=== PATIENT | male | born 1940 | race Caucasian/White ===

== ENCOUNTER 2018-06-14 22:13 | Inpatient (IN) | payer MEDICARE, OTHER | END 2018-06-20 11:35 | disposition other institution, planned readmission (95) | LOC: ER FS 22:13 → 4TH 06-15 00:51 | DX: J18.9 Pneumonia, unspecified organism (principal); J44.0 Chronic obstructive pulmonary disease with (acute) lower respiratory infection; R11.2 Nausea with vomiting, unspecified; G62.9 Polyneuropathy, unspecified; E87.6 Hypokalemia; R74.8 Abnormal levels of other serum enzymes; G89.29 Other chronic pain; N42.9 Disorder of prostate, unspecified; M19.91 Primary osteoarthritis, unspecified site; H91.91 Unspecified hearing loss, right ear; Z85.118 Personal history of other malignant neoplasm of bronchus and lung; Z87.891 Personal history of nicotine dependence; Z92.21 Personal history of antineoplastic chemotherapy; Z97.4 Presence of external hearing-aid; Z87.820 Personal history of traumatic brain injury ==

== ENCOUNTER 2018-09-06 22:33 | Inpatient (IN) | payer MEDICARE, OTHER ==
[~2018-09-06] VITALS: Ht 172.7 cm; Wt 81.6 kg
[~2018-09-06 22:33] MED LIST: AMLO10TA7 PO; AMLODIPINE BESYLATE 10 MG TAB; AMOX-358 PO; ASCO500T7 PO; CALC500T47 PO; DOCU100C37 PO; FENT1PAT11 TD; FENTANYL 100 MCG/HR PATCH; FERR-65 PO; FERR325T18 PO; GABA-488 PO; GABAPENTIN 300 MG CAPSULE; GBPN600T PO; HYDR28.341 RC; IBUP-1779 PO; IBUP-2186 PO; IPRA3AMP31 IH; LORA10TA7 PO; MULT-974 PO; OMEP20TA7 PO; OMEPRAZOLE DR 20 MG CAPSULE; ONDA4TAB11 PO; ONDANSETRON ODT 4 MG TABLET; OXYC-529 PO; OXYCODONE HCL 5 MG TABLET; PARO20TA5 PO; POLYMYXIN B; POTA10TA36 PO; POTASSIUM CL ER 10 MEQ TABLET; PREDNISOLONE AC 1% EYE DROP; PREDNISONE 20 MG TABLET; RT-ALBUINH INH; SENN-141 PO; TAMS0.4C2 PO; TRIMETHOPRIM; UMEC1BLS IH; [UNRECOGNIZED DRUG - CODE] PO
--- OUTSIDE RECORDS SUMMARY | 2018-09-06 22:40 | XMS REPORT | Continuity of Care Document ---
Author Organization Unknown Address Unknown Allergies Active Description Code Type Severity Reaction Onset Reported/Identified Relationship to Patient Clinical Status Yes No Known Medication Allergies Drug N/A N/A Yes baclofen [id number] Drug Allergy Unknown N/A 06/14/2018 Yes metoclopramide [id number] Drug Allergy Unknown N/A 06/14/2018 Medications There is no data. 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 06/20/2018 KRISTINA NUNEZ MD Ot G62.9 POLYNEUROPATHY, UNSPECIFIED 06/20/2018 KRISTINA NUNEZ MD Ot G89.29 OTHER CHRONIC PAIN 06/20/2018 KRISTINA NUNEZ MD Ot H91.91 UNSPECIFIED HEARING LOSS, RIGHT EAR 06/20/2018 KRISTINA NUNEZ MD Ot J18.1 LOBAR PNEUMONIA, UNSPECIFIED ORGANISM 06/20/2018 KRISTINA NUNEZ MD Ot J18.9 PNEUMONIA, UNSPECIFIED ORGANISM 06/20/2018 KRISTINA NUNEZ MD Ot J44.0 CHRONIC OBSTRUCTIVE PULMON DISEASE W ACU 06/20/2018 KRISTINA NUNEZ MD Ot J96.21 ACUTE AND CHRONIC RESPIRATORY FAILURE [place] 06/20/2018 KRISTINA NUNEZ MD Ot M19.91 PRIMARY OSTEOARTHRITIS, UNSPECIFIED SITE 06/20/2018 KRISTINA NUNEZ MD Ot N42.9 DISORDER OF PROSTATE, UNSPECIFIED 06/20/2018 KRISTINA NUNEZ MD Ot R11.2 NAUSEA WITH VOMITING, UNSPECIFIED 06/20/2018 KRISTINA NUNEZ MD Ot R74.8 ABNORMAL LEVELS OF OTHER SERUM ENZYMES 06/20/2018 KRISTINA NUNEZ MD Ot S06.9X9S UNSP INTRACRANIAL INJURY W LOC OF UNSP D 06/20/2018 KRISTINA NUNEZ MD Ot Z85.118 PERSONAL HISTORY OF MALIGNANT NEOPLASM O 06/20/2018 KRISTINA NUNEZ MD Ot Z87.820 PERSONAL HISTORY OF TRAUMATIC BRAIN INJU 06/20/2018 KRISTINA NUNEZ MD, Ot Z87.891 PERSONAL HISTORY OF NICOTINE DEPENDENCE 06/20/2018 KRISTINA NUNEZ MD Ot Z92.21 PERSONAL HISTORY OF ANTINEOPLASTIC CHEMO 06/20/2018 KRISTINA NUNEZ MD Ot 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 Procedures Code Description Performed By Performed On [id number] DRAINAGE OF LEFT LOWER LUNG LOBE, ENDO, 06/19/2018 [id number] EXTRACTION OF LEFT LOWER LUNG LOBE, ENDO 06/19/2018 Results Test Result Range Blood lactic acid measurement (moles/volume) - 06/14/18 20:35 Blood lactic acid measurement (moles/volume) 1.00 mmol/L 0.50- 2.00 Bacterial blood culture - 06/14/18 20:35 Bacterial blood culture NG [facility] Complete blood count (CBC) with automated white blood cell (WBC) differential - 06/14/18 22:20 Blood leukocytes automated count (number/volume) 23.8 10*3/uL 4.3-11.0 Blood erythrocytes automated count (number/volume) 4.25 10*6/uL 4.35-5.85 Venous blood hemoglobin measurement (mass/volume) 12.1 g/dL 13.3-17.7 Blood hematocrit (volume fraction) 38 % 40-54 Automated erythrocyte mean corpuscular volume 89 [foz_us] 80-99 Automated erythrocyte mean corpuscular hemoglobin (mass per erythrocyte) 28 pg 25-34 Automated erythrocyte mean corpuscular hemoglobin concentration measurement (mass/volume) 32 g/dL 32-36 Automated erythrocyte distribution width ratio 14.6 % 10.0- 14.5 Automated blood platelet count (count/volume) 256 10*3/uL 130-400 Automated blood platelet mean volume measurement 10.5 [foz_us] 7.4-10.4 Automated blood neutrophils/100 leukocytes 91 % 42-75 Automated blood lymphocytes/100 leukocytes 5 % 12-44 Blood monocytes/100 leukocytes 4 % 0-12 Automated blood eosinophils/100 leukocytes 0 % 0-10 Automated blood basophils/100 leukocytes 0 % 0-10 Blood neutrophils automated count (number/volume) 21.6 10*3 1.8-7.8 Blood lymphocytes automated count (number/volume) 1.2 10*3 1.0-4.0 Blood monocytes automated count (number/volume) 0.8 10*3 0.0- 1.0 Automated eosinophil count 0.0 10*3/uL 0.0-0.3 Automated blood basophil count (count/volume) 0.0 10*3/uL 0.0-0.1 Blood manual differential performed detection - 06/14/18 22:20 Blood monocytes/100 leukocytes 4 % NRG Manual blood segmented neutrophils/100 leukocytes 52 % NRG Blood band neutrophils/100 leukocytes 40 % NRG Manual blood lymphocytes/100 leukocytes 4 % NRG Comprehensive metabolic panel - 06/14/18 22:20 Serum or plasma sodium measurement (moles/volume) 142 mmol/L 135-145 Serum or plasma potassium measurement (moles/volume) 3.3 mmol/L 3.6-5.0 Serum or plasma chloride measurement (moles/volume) 102 mmol/L 98-107 Carbon dioxide 27 mmol/L 21-32 Serum or plasma anion gap determination (moles/volume) 13 mmol/L 5-14 Serum or plasma urea nitrogen measurement (mass/volume) 12 mg/dL 7-18 Serum or plasma creatinine measurement (mass/volume) 0.77 mg/dL 0.60-1.30 Serum or plasma urea nitrogen/creatinine mass ratio 16 NRG Serum or plasma creatinine measurement with calculation of estimated glomerular filtration rate > NRG Serum or plasma glucose measurement (mass/volume) 128 mg/dL 70-105 Serum or plasma calcium measurement (mass/volume) 8.4 mg/dL 8.5-10.1 Serum or plasma total bilirubin measurement (mass/volume) 0.6 mg/dL 0.1-1.0 Serum or plasma alkaline phosphatase measurement (enzymatic activity/volume) 146 U/L 40-136 Serum or plasma aspartate aminotransferase measurement (enzymatic activity/volume) 68 U/L 5-34 Serum or plasma alanine aminotransferase measurement (enzymatic activity/volume) 82 U/L 0-55 Serum or plasma protein measurement (mass/volume) 7.0 g/dL 6.4-8.2 Serum or plasma albumin measurement (mass/volume) 3.8 g/dL 3.2-4.5 CALCIUM CORRECTED 8.6 mg/dL 8.5-10.1 Lipase - 06/14/18 22:20 Lipase 7 U/L 8-78 Magnesium - 06/14/18 22:20 Magnesium 1.9 mg/dL 1.8-2.4 Influenza virus A and B antigen detection - 06/14/18 22:40 FLU RESULT NEGATIVE FOR INFLUENZA A AND B ANTIGENS BY IA NRG Complete urinalysis with reflex to culture - 06/14/18 23:25 Urine color determination YELLOW NRG Urine clarity determination CLEAR NRG Urine pH measurement by test strip 7.0 5-9 Specific gravity of urine by test strip 1.015 1.016-1.022 Urine protein assay by test strip, semi-quantitative NEGATIVE NEGATIVE Urine glucose detection by automated test strip NEGATIVE NEGATIVE Erythrocytes detection in urine sediment by light microscopy NEGATIVE NEGATIVE Urine ketones detection by automated test strip 1+ NEGATIVE Urine nitrite detection by test strip NEGATIVE NEGATIVE Urine total bilirubin detection by test strip NEGATIVE NEGATIVE Urine urobilinogen measurement by automated test strip (mass/volume) 0.2 mg/dL NORMAL Urine leukocyte esterase detection by dipstick NEGATIVE NEGATIVE Automated urine sediment erythrocyte count by microscopy (number/high power field) [HPF] NRG Automated urine sediment leukocyte count by microscopy (number/high power field) [HPF] NRG Bacteria detection in urine sediment by light microscopy FEW NRG Squamous epithelial cells detection in urine sediment by light microscopy 2-5 NRG Crystals detection in urine sediment by light microscopy NONE NRG Casts detection in urine sediment by light microscopy NONE NRG Mucus detection in urine sediment by light microscopy NEGATIVE NRG Complete urinalysis with reflex to culture YES NRG Bacterial urine culture - 06/14/18 23:25 Bacterial urine culture SEE COMMEN NRG COLONY COUNT . NRG Bacterial blood culture - 06/15/18 00:05 Bacterial blood culture NG NR Complete blood count (CBC) with automated white blood cell (WBC) differential - 06/15/18 06:15 Blood leukocytes automated count (number/volume) 17.0 10*3/uL 4.3-11.0 Blood erythrocytes automated count (number/volume) 3.76 10*6/uL 4.35-5.85 Venous blood hemoglobin measurement (mass/volume) 10.9 g/dL 13.3-17.7 Blood hematocrit (volume fraction) 34 % 40-54 Automated erythrocyte mean corpuscular volume 89 [foz_us] 80-99 Automated erythrocyte mean corpuscular hemoglobin (mass per erythrocyte) 29 pg 25-34 Automated erythrocyte mean corpuscular hemoglobin concentration measurement (mass/volume) 32 g/dL 32-36 Automated erythrocyte distribution width ratio 15.1 % 10.0- 14.5 Automated blood platelet count (count/volume) 221 10*3/uL 130-400 Automated blood platelet mean volume measurement 10.2 [foz_us] 7.4-10.4 Automated blood neutrophils/100 leukocytes 86 % 42-75 Automated blood lymphocytes/100 leukocytes 9 % 12-44 Blood monocytes/100 leukocytes 5 % 0-12 Automated blood eosinophils/100 leukocytes 0 % 0-10 Automated blood basophils/100 leukocytes 0 % 0-10 Blood neutrophils automated count (number/volume) 14.6 10*3 1.8-7.8 Blood lymphocytes automated count (number/volume) 1.5 10*3 1.0-4.0 Blood monocytes automated count (number/volume) 0.8 10*3 0.0- 1.0 Automated eosinophil count 0.1 10*3/uL 0.0-0.3 Automated blood basophil count (count/volume) 0.0 10*3/uL 0.0-0.1 Whole blood basic metabolic panel - 06/15/18 06:15 Serum or plasma sodium measurement (moles/volume) 143 mmol/L 135-145 Serum or plasma potassium measurement (moles/volume) 3.0 mmol/L 3.6-5.0 Serum or plasma chloride measurement (moles/volume) 107 mmol/L 98-107 Carbon dioxide 27 mmol/L 21-32 Serum or plasma anion gap determination (moles/volume) 9 mmol/L 5-14 Serum or plasma urea nitrogen measurement (mass/volume) 14 mg/dL 7-18 Serum or plasma creatinine measurement (mass/volume) 0.69 mg/dL 0.60-1.30 Serum or plasma urea nitrogen/creatinine mass ratio 20 NRG Serum or plasma creatinine measurement with calculation of estimated glomerular filtration rate > NRG Serum or plasma glucose measurement (mass/volume) 102 mg/dL 70-105 Serum or plasma calcium measurement (mass/volume) 8.9 mg/dL 8.5-10.1 Complete blood count (CBC) with automated white blood cell (WBC) differential - 06/16/18 06:35 Blood leukocytes automated count (number/volume) 9.8 10*3/uL 4.3-11.0 Blood erythrocytes automated count (number/volume) 3.51 10*6/uL 4.35-5.85 Venous blood hemoglobin measurement (mass/volume) 10.0 g/dL 13.3-17.7 Blood hematocrit (volume fraction) 32 % 40-54 Automated erythrocyte mean corpuscular volume 90 [foz_us] 80-99 Automated erythrocyte mean corpuscular hemoglobin (mass per erythrocyte) 29 pg 25-34 Automated erythrocyte mean corpuscular hemoglobin concentration measurement (mass/volume) 32 g/dL 32-36 Automated erythrocyte distribution width ratio 14.9 % 10.0- 14.5 Automated blood platelet count (count/volume) 192 10*3/uL 130-400 Automated blood platelet mean volume measurement 10.2 [foz_us] 7.4-10.4 Automated blood neutrophils/100 leukocytes 81 % 42-75 Automated blood lymphocytes/100 leukocytes 11 % 12-44 Blood monocytes/100 leukocytes 6 % 0-12 Automated blood eosinophils/100 leukocytes 2 % 0-10 Automated blood basophils/100 leukocytes 0 % 0-10 Blood neutrophils automated count (number/volume) 7.9 10*3 1.8-7.8 Blood lymphocytes automated count (number/volume) 1.1 10*3 1.0-4.0 Blood monocytes automated count (number/volume) 0.6 10*3 0.0- 1.0 Automated eosinophil count 0.2 10*3/uL 0.0-0.3 Automated blood basophil count (count/volume) 0.0 10*3/uL 0.0-0.1 Comprehensive metabolic panel - 06/16/18 06:35 Serum or plasma sodium measurement (moles/volume) 139 mmol/L 135-145 Serum or plasma potassium measurement (moles/volume) 3.2 mmol/L 3.6-5.0 Serum or plasma chloride measurement (moles/volume) 105 mmol/L 98-107 Carbon dioxide 27 mmol/L 21-32 Serum or plasma anion gap determination (moles/volume) 7 mmol/L 5-14 Serum or plasma urea nitrogen measurement (mass/volume) 11 mg/dL 7-18 Serum or plasma creatinine measurement (mass/volume) 0.70 mg/dL 0.60-1.30 Serum or plasma urea nitrogen/creatinine mass ratio 16 NRG Serum or plasma creatinine measurement with calculation of estimated glomerular filtration rate > NRG Serum or plasma glucose measurement (mass/volume) 101 mg/dL 70-105 Serum or plasma calcium measurement (mass/volume) 8.8 mg/dL 8.5-10.1 Serum or plasma total bilirubin measurement (mass/volume) 0.7 mg/dL 0.1-1.0 Serum or plasma alkaline phosphatase measurement (enzymatic activity/volume) 141 U/L 40-136 Serum or plasma aspartate aminotransferase measurement (enzymatic activity/volume) 48 U/L 5-34 Serum or plasma alanine aminotransferase measurement (enzymatic activity/volume) 61 U/L 0-55 Serum or plasma protein measurement (mass/volume) 5.9 g/dL 6.4-8.2 Serum or plasma albumin measurement (mass/volume) 3.1 g/dL 3.2-4.5 CALCIUM CORRECTED 9.5 mg/dL 8.5-10.1 Magnesium - 06/16/18 06:35 Magnesium 2.3 mg/dL 1.8-2.4 Complete blood count (CBC) with automated white blood cell (WBC) differential - 06/17/18 05:36 Blood leukocytes automated count (number/volume) 8.0 10*3/uL 4.3-11.0 Blood erythrocytes automated count (number/volume) 3.55 10*6/uL 4.35-5.85 Venous blood hemoglobin measurement (mass/volume) 10.4 g/dL 13.3-17.7 Blood hematocrit (volume fraction) 32 % 40-54 Automated erythrocyte mean corpuscular volume 90 [foz_us] 80-99 Automated erythrocyte mean corpuscular hemoglobin (mass per erythrocyte) 29 pg 25-34 Automated erythrocyte mean corpuscular hemoglobin concentration measurement (mass/volume) 33 g/dL 32-36 Automated erythrocyte distribution width ratio 14.9 % 10.0- 14.5 Automated blood platelet count (count/volume) 218 10*3/uL 130-400 Automated blood platelet mean volume measurement 10.4 [foz_us] 7.4-10.4 Automated blood neutrophils/100 leukocytes 73 % 42-75 Automated blood lymphocytes/100 leukocytes 14 % 12-44 Blood monocytes/100 leukocytes 6 % 0-12 Automated blood eosinophils/100 leukocytes 7 % 0-10 Automated blood basophils/100 leukocytes 0 % 0-10 Blood neutrophils automated count (number/volume) 5.8 10*3 1.8-7.8 Blood lymphocytes automated count (number/volume) 1.2 10*3 1.0-4.0 Blood monocytes automated count (number/volume) 0.5 10*3 0.0- 1.0 Automated eosinophil count 0.6 10*3/uL 0.0-0.3 Automated blood basophil count (count/volume) 0.0 10*3/uL 0.0-0.1 Comprehensive metabolic panel - 06/17/18 05:36 Serum or plasma sodium measurement (moles/volume) 141 mmol/L 135-145 Serum or plasma potassium measurement (moles/volume) 3.2 mmol/L 3.6-5.0 Serum or plasma chloride measurement (moles/volume) 106 mmol/L 98-107 Carbon dioxide 27 mmol/L 21-32 Serum or plasma anion gap determination (moles/volume) 8 mmol/L 5-14 Serum or plasma urea nitrogen measurement (mass/volume) 8 mg/dL 7-18 Serum or plasma creatinine measurement (mass/volume) 0.68 mg/dL 0.60-1.30 Serum or plasma urea nitrogen/creatinine mass ratio 12 NRG Serum or plasma creatinine measurement with calculation of estimated glomerular filtration rate > NRG Serum or plasma glucose measurement (mass/volume) 91 mg/dL 70-105 Serum or plasma calcium measurement (mass/volume) 9.1 mg/dL 8.5-10.1 Serum or plasma total bilirubin measurement (mass/volume) 0.6 mg/dL 0.1-1.0 Serum or plasma alkaline phosphatase measurement (enzymatic activity/volume) 136 U/L 40-136 Serum or plasma aspartate aminotransferase measurement (enzymatic activity/volume) 31 U/L 5-34 Serum or plasma alanine aminotransferase measurement (enzymatic activity/volume) 47 U/L 0-55 Serum or plasma protein measurement (mass/volume) 6.1 g/dL 6.4-8.2 Serum or plasma albumin measurement (mass/volume) 3.1 g/dL 3.2-4.5 CALCIUM CORRECTED 9.8 mg/dL 8.5-10.1 Serum or plasma lithium measurement (moles/volume) - 06/17/18 05:36 BNP level 283.9 pg/mL <100.0 Methicillin resistant Staphylococcus aureus (MRSA) screening culture - 06/17/18 13:00 Methicillin resistant Staphylococcus aureus (MRSA) screening culture NEG NRG Vancomycin trough - 06/17/18 13:15 Vancomycin trough 11.0 ug/mL 10.0-20.0 Arterial blood gas measurement - 06/17/18 16:28 Blood pCO2 43 mm[Hg] 35-45 Blood pO2 73 mm[Hg] 79-93 Arterial blood bicarbonate measurement (moles/volume) 28 mmol/L 23-27 Arterial blood base excess by calculation 3.4 mmol/L -2.5-2.5 Arterial blood oxygen saturation measurement 96 % 94-100 * Inhaled oxygen flow rate 4 L NRG Arterial blood pH measurement with patient temperature correction 7.42 7.37-7.43 Arterial blood carbon dioxide, total measurement (moles/volume) 28.8 mmol/L 21.0-31.0 Body site LEFT RADIAL NRG Assessment of wrist artery patency prior to arterial puncture POSITIVE NRG Setting of ventilation mode NO NRG Measurement of body temperature 99.1 NRG Automated blood complete blood count (hemogram) panel - 06/18/18 09:09 Blood leukocytes automated count (number/volume) 6.2 10*3/uL 4.3-11.0 Blood erythrocytes automated count (number/volume) 3.83 10*6/uL 4.35-5.85 Venous blood hemoglobin measurement (mass/volume) 10.9 g/dL 13.3-17.7 Blood hematocrit (volume fraction) 34 % 40-54 Automated erythrocyte mean corpuscular volume 88 [foz_us] 80-99 Automated erythrocyte mean corpuscular hemoglobin (mass per erythrocyte) 28 pg 25-34 Automated erythrocyte mean corpuscular hemoglobin concentration measurement (mass/volume) 32 g/dL 32-36 Automated erythrocyte distribution width ratio 14.8 % 10.0- 14.5 Automated blood platelet count (count/volume) 254 10*3/uL 130-400 Automated blood platelet mean volume measurement 10.2 [foz_us] 7.4-10.4 Whole blood basic metabolic panel - 06/18/18 09:09 Serum or plasma sodium measurement (moles/volume) 141 mmol/L 135-145 Serum or plasma potassium measurement (moles/volume) 3.3 mmol/L 3.6-5.0 Serum or plasma chloride measurement (moles/volume) 105 mmol/L 98-107 Carbon dioxide 28 mmol/L 21-32 Serum or plasma anion gap determination (moles/volume) 8 mmol/L 5-14 Serum or plasma urea nitrogen measurement (mass/volume) 8 mg/dL 7-18 Serum or plasma creatinine measurement (mass/volume) 0.69 mg/dL 0.60-1.30 Serum or plasma urea nitrogen/creatinine mass ratio 12 NRG Serum or plasma creatinine measurement with calculation of estimated glomerular filtration rate > NRG Serum or plasma glucose measurement (mass/volume) 102 mg/dL 70-105 Serum or plasma calcium measurement (mass/volume) 8.9 mg/dL 8.5-10.1 Serum or plasma phosphate measurement (mass/volume) - 06/18/18 09:09 Serum or plasma phosphate measurement (mass/volume) 3.5 mg/dL 2.3-4.7 Magnesium - 06/18/18 09:09 Magnesium 1.7 mg/dL 1.8-2.4 Serum or plasma lithium measurement (moles/volume) - 06/18/18 09:09 BNP level 209.2 pg/mL <100.0 Complete blood count (CBC) with automated white blood cell (WBC) differential - 06/19/18 03:45 Blood leukocytes automated count (number/volume) 5.1 10*3/uL 4.3-11.0 Blood erythrocytes automated count (number/volume) 3.69 10*6/uL 4.35-5.85 Venous blood hemoglobin measurement (mass/volume) 10.6 g/dL 13.3-17.7 Blood hematocrit (volume fraction) 33 % 40-54 Automated erythrocyte mean corpuscular volume 89 [foz_us] 80-99 Automated erythrocyte mean corpuscular hemoglobin (mass per erythrocyte) 29 pg 25-34 Automated erythrocyte mean corpuscular hemoglobin concentration measurement (mass/volume) 32 g/dL 32-36 Automated erythrocyte distribution width ratio 14.8 % 10.0- 14.5 Automated blood platelet count (count/volume) 238 10*3/uL 130-400 Automated blood platelet mean volume measurement 10.1 [foz_us] 7.4-10.4 Automated blood neutrophils/100 leukocytes 54 % 42-75 Automated blood lymphocytes/100 leukocytes 26 % 12-44 Blood monocytes/100 leukocytes 9 % 0-12 Automated blood eosinophils/100 leukocytes 12 % 0-10 Automated blood basophils/100 leukocytes 0 % 0-10 Blood neutrophils automated count (number/volume) 2.8 10*3 1.8-7.8 Blood lymphocytes automated count (number/volume) 1.3 10*3 1.0-4.0 Blood monocytes automated count (number/volume) 0.4 10*3 0.0- 1.0 Automated eosinophil count 0.6 10*3/uL 0.0-0.3 Automated blood basophil count (count/volume) 0.0 10*3/uL 0.0-0.1 Serum or plasma phosphate measurement (mass/volume) - 06/19/18 03:45 Serum or plasma phosphate measurement (mass/volume) 3.5 mg/dL 2.3-4.7 Whole blood basic metabolic panel - 06/19/18 03:45 Serum or plasma sodium measurement (moles/volume) 141 mmol/L 135-145 Serum or plasma potassium measurement (moles/volume) 3.1 mmol/L 3.6-5.0 Serum or plasma chloride measurement (moles/volume) 105 mmol/L 98-107 Carbon dioxide 25 mmol/L 21-32 Serum or plasma anion gap determination (moles/volume) 11 mmol/L 5-14 Serum or plasma urea nitrogen measurement (mass/volume) 9 mg/dL 7-18 Serum or plasma creatinine measurement (mass/volume) 0.69 mg/dL 0.60-1.30 Serum or plasma urea nitrogen/creatinine mass ratio 13 NRG Serum or plasma creatinine measurement with calculation of estimated glomerular filtration rate > NRG Serum or plasma glucose measurement (mass/volume) 98 mg/dL 70-105 Serum or plasma calcium measurement (mass/volume) 9.1 mg/dL 8.5-10.1 Magnesium - 06/19/18 03:45 Magnesium 1.8 mg/dL 1.8-2.4 Sputum Gram stain - 06/19/18 07:45 Sputum Gram stain 06-20-2018, 06 NR Bacteria identification in bronchial specimen by aerobe culture - 06/19/18 07:45 Bacteria identification in bronchial specimen by aerobe culture NRG Mycobacterium species detection by organism specific culture - 06/19/18 07:45 QUANTITY OF GROWTH . NRG Mycobacterium species detection by organism specific culture SEE COMMEN NRG C FUNGUS SPUTUM FLUID TISSUE - 06/19/18 07:45 C FUNGUS SPUTUM FLUID TISSUE NG NRG Sputum Gram stain - 06/19/18 07:46 Sputum Gram stain TNP NR Bacteria identification in bronchial specimen by aerobe culture - 06/19/18 07:46 Bacteria identification in bronchial specimen by aerobe culture NG NRG C FUNGUS SPUTUM FLUID TISSUE - 06/19/18 07:46 C FUNGUS SPUTUM FLUID TISSUE NG NRG Automated blood complete blood count (hemogram) panel - 06/20/18 04:30 Blood leukocytes automated count (number/volume) 5.8 10*3/uL 4.3-11.0 Blood erythrocytes automated count (number/volume) 3.69 10*6/uL 4.35-5.85 Venous blood hemoglobin measurement (mass/volume) 10.7 g/dL 13.3-17.7 Blood hematocrit (volume fraction) 33 % 40-54 Automated erythrocyte mean corpuscular volume 89 [foz_us] 80-99 Automated erythrocyte mean corpuscular hemoglobin (mass per erythrocyte) 29 pg 25-34 Automated erythrocyte mean corpuscular hemoglobin concentration measurement (mass/volume) 33 g/dL 32-36 Automated erythrocyte distribution width ratio 14.9 % 10.0- 14.5 Automated blood platelet count (count/volume) 279 10*3/uL 130-400 Automated blood platelet mean volume measurement 10.1 [foz_us] 7.4-10.4 Whole blood basic metabolic panel - 06/20/18 04:30 Serum or plasma sodium measurement (moles/volume) 137 mmol/L 135-145 Serum or plasma potassium measurement (moles/volume) 3.5 mmol/L 3.6-5.0 Serum or plasma chloride measurement (moles/volume) 104 mmol/L 98-107 Carbon dioxide 24 mmol/L 21-32 Serum or plasma anion gap determination (moles/volume) 9 mmol/L 5-14 Serum or plasma urea nitrogen measurement (mass/volume) 11 mg/dL 7-18 Serum or plasma creatinine measurement (mass/volume) 0.76 mg/dL 0.60-1.30 Serum or plasma urea nitrogen/creatinine mass ratio 14 NRG Serum or plasma creatinine measurement with calculation of estimated glomerular filtration rate > NRG Serum or plasma glucose measurement (mass/volume) 95 mg/dL 70-105 Serum or plasma calcium measurement (mass/volume) 9.4 mg/dL 8.5-10.1 Serum or plasma phosphate measurement (mass/volume) - 06/20/18 04:30 Serum or plasma phosphate measurement (mass/volume) 3.4 mg/dL 2.3-4.7 Magnesium - 06/20/18 04:30 Magnesium 1.8 mg/dL 1.8-2.4 Encounters ACCT No. Visit Date/Time Discharge Status Pt. Type Provider Facility Loc./Unit Complaint [id number] 06/05/2018 11:36:00 ACT Unknown Lester DENT, Zack Keating [id number] 12/05/2016 11:41:08 ACT Document Registration [id number] 06/15/2018 00:51:00 06/20/2018 11:35:00 DIS Inpatient ENRIQUE DENT, KRISTINA Salas [facility] 4TH PNEUMONIA [id number] 09/06/2018 22:34:00 ACT Emergency MENDEZ DENT, LAUREN Mackey [facility] ER AMS,VOMITING [id number] 07/18/2016 09:26:49 ACT V BRAULIO COOK [facility]
[2018-09-06 22:51] LABS: BASOPHILS % (AUTO) 0 % (0-10); EOSINOPHILS # (AUTO) 0.1 10^3/uL (0.0-0.3); EOSINOPHILS % (AUTO) 1 % (0-10); HEMATOCRIT 35 % (40-54); HEMOGLOBIN 11.4 G/DL (13.3-17.7); LYMPHOCYTES # (AUTO) 1.2 X 10^3 (1.0-4.0); LYMPHOCYTES % (AUTO) 8 % (12-44); MEAN CORPUSCULAR HEMOGLOBIN 29 PG (25-34); MEAN CORPUSCULAR HGB CONC 33 G/DL (32-36); MEAN CORPUSCULAR VOLUME 88 FL (80-99); MEAN PLATELET VOLUME 10.5 FL (7.4-10.4); MONOCYTES # (AUTO) 0.8 X 10^3 (0.0-1.0); MONOCYTES % (AUTO) 6 % (0-12); NEUTROPHILS # (AUTO) 11.9 X 10^3 (1.8-7.8); NEUTROPHILS % (AUTO) 85 % (42-75); PLATELET COUNT 187 10^3/uL (130-400); RED CELL DISTRIBUTION WIDTH 13.6 % (10.0-14.5)
[2018-09-06] MEDS ORDERED: NS IV 1000 ML 1,000 ML IV ONE (22:51)
[2018-09-06 23:03] LABS: FIBRIN DEGRADATION PRODUCTS 2.4 UG/ML (0.00-0.49); INR 1.1 (0.8-1.4); PROTHROMBIN TIME PATIENT 14.4 SEC (12.2-14.7)
[2018-09-06 23:08] LABS: BAND NEUTROPHILS 0 %; BASOPHILS % (MANUAL) 0 %; EOSINOPHILS % (MANUAL) 1 %; LYMPHOCYTES % (MANUAL) 6 %; MONOCYTES % (MANUAL) 6 %; NEUTROPHILS % (MANUAL) 86 %; RBC MORPH NORMAL; REACTIVE LYMPHOCYTES 1 %
[2018-09-06 23:12] LABS: ALANINE AMINOTRANSFERASE 95 U/L (0-55); ALBUMIN 3.5 GM/DL (3.2-4.5); ALKALINE PHOSPHATASE 120 U/L (40-136); BUN/CREATININE RATIO 19; CALCIUM 8.9 MG/DL (8.5-10.1); CARBON DIOXIDE 21 MMOL/L (21-32); CHLORIDE 105 MMOL/L (98-107); CREATININE SERUM 0.69 MG/DL (0.60-1.30); GFR ESTIMATED > 60; GLUCOSE 107 MG/DL (70-105); POTASSIUM 2.8 MMOL/L (3.6-5.0); SODIUM 138 MMOL/L (135-145); TOTAL PROTEIN 6.7 GM/DL (6.4-8.2)
[2018-09-06] MEDS ORDERED: fentaNYL INJECTION 100 MCG/2 ML AMP IVP ONE (23:15)
[2018-09-06] MEDS ORDERED: POTASSIUM CL 10MEQ/50ML IVPB 50 ML IV ONE (23:30)
[2018-09-06] MEDS ORDERED: LORazepam INJ 2 MG/ML (ATIVAN) VIAL IVP ONE (23:45)
[2018-09-07] VITALS (8 sets, daily range): BP systolic 132–160; BP diastolic 63–81
[2018-09-07] MEDS ORDERED: IOHEXOL 350 MG/ML 150 ML (OMNIPAQUE 350) VIAL IV ONE
[2018-09-07] MEDS ORDERED: HOLD METFORMIN - RECEIVED CONTRAST 20 ML VIAL IV SCH
[2018-09-07] MEDS ORDERED: NS (IVPB) 100 ML ONE (00:14)
[2018-09-07] MEDS ORDERED: PIPERACILLIN/TAZO 4.5 GM VIAL (ZOSYN) IV ONE (00:14)
[2018-09-07] MEDS ORDERED: PIPERACILLIN/TAZOBACTAM (BULK) 4.5 GM in NS (IVPB) 100 ML IV ONE (00:15)
--- NOTE | 2018-09-07 01:00 | NUR ---
PT ASSISSTED TO STAND BY BED FOR URINE SPECIMEN COLLECTION. ADULT BRIEF CHANGED. PT DENIES NEEDS AT THIS TIME.
[2018-09-07 01:06] LABS: BILIRUBIN,URINE NEGATIVE (NEGATIVE); CLARITY,URINE CLEAR; COLOR,URINE YELLOW; GLUCOSE, URINE (UA) NEGATIVE (NEGATIVE); KETONES,URINE 3+ (NEGATIVE); LEUKOCYTE ESTERASE ,URINE NEGATIVE (NEGATIVE); NITRITE,URINE NEGATIVE (NEGATIVE); PH,URINE 8 (5-9); PROTEIN,URINE 1+ (NEGATIVE); UROBILINOGEN,URINE NORMAL (NORMAL)
[2018-09-07 01:15] LABS: BACTERIA,URINE FEW /HPF; WBC,URINE 0-2 /HPF
[2018-09-07] MEDS ORDERED: ASPIRIN 325 MG (5 GR) TABLET PO ONE (01:30)
--- NOTE | 2018-09-07 01:33 | ED Neurological Problem ---
General Chief Complaint: Neuro-Stroke Like Symptoms Stated Complaint: AMS,VOMITING Nursing Triage Note: ALTERED MENTAL STATUS Nursing Sepsis Screen: No Definite Risk Source: patient, family, EMS Exam Limitations: clinical condition History of Present Illness Date Seen by Provider: September 06, 2018 Time Seen by Provider: 22:34 Initial Comments This 77-year-old gentleman presents to the emergency room via EMS after his son called 911 for reasons of confusion and speech difficulty. Patient's son came into town on the evening of September 05. Patient was already asleep at that time. The next morning patient awoke and was fairly normal but developed some vomiting and diarrhea. Sometime around 13:00 he began to get confused and have speech difficulty. This progressed and he had significant aphasia with EMS. Fingerstick blood sugar was 113 for EMS and 107 upon arrival. Temperature was 100.1. 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 He wears a fentanyl patch. He complained of pain to EMS. They removed his patching gave him fentanyl 25 g by IV route because they did not know how old the patch was. Stroke activation was paged after initial assessment. Patient was not a TPA candidate as he was well beyond 4.5 hours from last known well time. Patient was to have surgery today for an eye revision. 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 He did not have that procedure done due to illness today. Patient's son states that he has a history of lung cancer outside the lung tissue. I reviewed the chart and prior CT scan which made no mention of malignant-appearing masses. Allergies and Home Medications Allergies Coded Allergies: baclofen (Verified Allergy, Unknown, 06/14/18) metoclopramide (Verified Allergy, Unknown, 06/14/18) Home Medications Afatinib Dimaleate 30 Mg Tablet, 30 MG PO DAILY, (Reported) Albuterol Sulfate 1 Puff Puff, 2 PUFF INH Q4H PRN for SHORTNESS OF BREATH, (Reported) 1 PUFF = 90 MCG Amlodipine Besylate 10 Mg Tablet, 10 MG PO DAILY, (Reported) Amoxicillin/Potassium Clav 1 Each Tablet, 1 EACH PO BID Prescribed by: ARCHIE SCOTT on 06/19/18 1501 Ascorbic Acid 500 Mg Tablet, 500 MG PO DAILY, (Reported) Calcium Carbonate 200 Mg Tab.chew, 200 MG PO Q6H PRN for INDIGESTION, (Reported) Fentanyl 1 Each Patch.td72, 100 MCG TD Q72H Prescribed by: ARCHIE SCOTT on 06/20/18 1129 Ferrous Sulfate 325 Mg Tablet, 325 MG PO DAILY, (Reported) Gabapentin 300 Mg Capsule, 600 MG PO TID, (Reported) Hydrocortisone 28.35 Gm Cream.appl, 28.35 GM RC BID Prescribed by: ARCHIE SCOTT on 06/20/18 1020 Ibuprofen 400 Mg Tablet, 400 MG PO Q6H PRN for PAIN, (Reported) Ipratropium/Albuterol Sulfate 3 Ml Ampul.neb, 3 ML IH Q12H PRN for SHORTNESS OF BREATH, (Reported) Loratadine 10 Mg Tablet, 10 MG PO DAILY, (Reported) Multivitamin 1 Each Tablet, 1 EACH PO DAILY, (Reported) Omeprazole 20 Mg Tablet.dr, 20 MG PO DAILY, (Reported) Ondansetron 4 Mg Tab.rapdis, 4 MG PO Q8H PRN for NAUSEA/VOMITING-1ST LINE, (Reported) Oxycodone HCl 5 Mg Tablet, 5 MG PO Q6H PRN for PAIN-MILD TO MODERATE Prescribed by: ARCHIE SCOTT on 06/20/18 1118 Paroxetine HCl 20 Mg Tablet, 20 MG PO DAILY, (Reported) Potassium Chloride 10 Meq Tab.er.prt, 20 MEQ PO DAILY, (Reported) Sennosides 8.6 Mg Tablet, 8.6 MG PO DAILY PRN for CONSTIPATION-5TH LINE Prescribed by: ARCHIE SCOTT on 06/19/18 1501 Tamsulosin HCl 0.4 Mg Cap.er.24h, 0.4 MG PO DAILY, (Reported) Daily until stone passage Umeclidinium Brm/Vilanterol Tr 1 Each Blst.w.dev, 1 EACH IH DAILY, (Reported) Patient Home Medication List Home Medication List Reviewed: Yes Review of Systems Review of Systems Constitutional: see HPI Eyes: See HPI Ears, Nose, Mouth, Throat: no symptoms reported Respiratory: no symptoms reported Cardiovascular: no symptoms reported Gastrointestinal: no symptoms reported Genitourinary: no symptoms reported Musculoskeletal: no symptoms reported Skin: no symptoms reported Psychiatric/Neurological: See HPI Endocrine: No Symptoms Reported Past Lncbmaf-Etdain-Hyjyid Hx Past Med/Social Hx: Reviewed and Corrections made Patient Social History Alcohol Use: Denies Use Number of Drinks Today: GG Alcohol Beverage of Choice: Whiskey Recreational Drug Use: No Smoking Status: Former Smoker Type Used: Cigarettes Former Smoker, Quit: Apr 23, 1969 2nd Hand Smoke Exposure: No Recent Foreign Travel: No Contact w/Someone Who Travel: No Recent Infectious Disease Expo: No Recent Hopitalizations: No Immunizations Up To Date Date of Pneumonia Vaccine: Feb 04, 2016 Date of Influenza Vaccine: Jan 09, 2018 Seasonal Allergies Seasonal Allergies: Yes Past Medical History Surgeries: Yes Eye Surgery, Orthopedic Respiratory: Yes COPD Currently Using CPAP: No Currently Using BIPAP: No Cardiac: Yes Hypertension Neurological: Yes Concussion, Neuropathy, Traumatic Brain Injury Genitourinary: Yes Prostate Problems, UTI-Chronic Gastrointestinal: Yes Gall Bladder Disease Musculoskeletal: Yes (chronic pain from trauma, run over by a tractor) Arthritis Endocrine: No HEENT: Yes Hearing Impairment: Hard of Hearing, Hearing Aide Right, Deaf Cancer: Yes Lung Did You Recieve Any Treatments: Yes What Type of Treatment Did You: Chemotherapy Psychosocial: No Integumentary: No Blood Disorders: No Adverse Reaction/Blood Tranf: No Physical Exam Vital Signs Vital Signs - First Documented 09/06/18 22:35 Temp 100.1 Pulse 73 Resp 18 B/P (MAP) 148/100 (116) Pulse Ox 94 O2 Delivery Room Air Capillary Refill : Less Than 3 Seconds Height, Weight, BMI Height: 5'8.00" Weight: 180lbs. 4.0oz. 81.985776bc; 22.8 BMI Method:Estimated General Appearance: WD/WN, mild distress HEENT: normal ENT inspection, pharynx normal, other (disfigurement of the right pupil) Neck: normal inspection Respiratory: lungs clear, normal breath sounds, no respiratory distress, no accessory muscle use Cardiovascular: regular rate, rhythm, no edema, no murmur Gastrointestinal: normal bowel sounds, non tender, soft Extremities: normal inspection, no pedal edema Neurologic/Psychiatric: no motor/sensory deficits, alert, normal mood/affect Crainal Nerves: abnormal speech, other (patient has expressive aphasia and per haps some mild receptive aphasia. He does follow instructions for the most part. He has extreme difficulty with word finding. He did fairly well with reading on the NIH stroke score but could not identify objects or described pictures.) Coordination/Gait: normal finger to nose Motor/Sensory: no motor deficit, no sensory deficit Skin: normal color, warm/dry Stroke Onset of Symptoms Date of Onset of Symptoms: September 06, 2018 NIH Stroke Scale Assessment Level of Consciousness: 0=Alert (0), Level of Consciousness-Questions: 2=Answer neither question (2), LOC Commands: 0=Performs both tasks (0), Visual [place]: 1=Partial hemianopia (1), Facial Movement (Facial Paresis): 0=Normal symmetrical mnt (0), Motor Function-Arms Right: 0=No drift (0), Motor Function-Arms Left: 0=No drift (0), Motor Function-Legs Right: 0=No drift (0), Motor Function-Legs Left: 0=No drift (0), Limb Ataxia: 0=Absent (0), Sensory: 0=Normal:no loss (0), Best Language: 2=Severe aphasia (2), Dysarthria: 1=Mild to moderate loss (1), Extinction & Inattention: 0=No abnormality (0), Total: 6 Stroke Thrombolytic Exclusion Age 18 or Over: Yes Focused Exam Lactate Level 09/06/18 22:40: Lactic Acid Level 0.77 Lactic Acid Level Laboratory Tests Test 09/06/18 22:40 Lactic Acid Level 0.77 MMOL/L (0.50-2.00) Progress/Results/Core Measures Results/Orders Lab Results Laboratory Tests Test 09/06/18 22:40 09/06/18 22:46 09/07/18 01:00 Range/Units White Blood Count 14.0 H 4.3-11.0 10^3/uL Red Blood Count 3.91 L 4.35-5.85 10^6/uL Hemoglobin 11.4 L 13.3-17.7 G/DL Hematocrit 35 L 40-54 % Mean Corpuscular Volume 88 80-99 FL Mean Corpuscular Hemoglobin 29 25-34 PG Mean Corpuscular Hemoglobin Concent 33 32-36 G/DL Red Cell Distribution Width 13.6 10.0-14.5 % Platelet Count 187 130-400 10^3/uL Mean Platelet Volume 10.5 H 7.4-10.4 FL Neutrophils (%) (Auto) 85 H 42-75 % Lymphocytes (%) (Auto) 8 L 12-44 % Monocytes (%) (Auto) 6 0-12 % Eosinophils (%) (Auto) 1 0-10 % Basophils (%) (Auto) 0 0-10 % Neutrophils # (Auto) 11.9 H 1.8-7.8 X 10^3 Lymphocytes # (Auto) 1.2 1.0-4.0 X 10^3 Monocytes # (Auto) 0.8 0.0-1.0 X 10^3 Eosinophils # (Auto) 0.1 0.0-0.3 10^3/uL Basophils # (Auto) 0.0 0.0-0.1 10^3/uL Neutrophils % (Manual) 86 % Lymphocytes % (Manual) 6 % Monocytes % (Manual) 6 % Eosinophils % (Manual) 1 % Basophils % (Manual) 0 % Band Neutrophils 0 % Reactive Lymphocytes 1 % Blood Morphology Comment NORMAL Prothrombin Time 14.4 12.2-14.7 SEC INR Comment 1.1 0.8-1.4 Activated Partial Thromboplast Time 36 H 24-35 SEC D-Dimer 2.40 H 0.00-0.49 UG/ML Sodium Level 138 135-145 MMOL/L Potassium Level 2.8 L 3.6-5.0 MMOL/L Chloride Level 105 98-107 MMOL/L Carbon Dioxide Level 21 21-32 MMOL/L Anion Gap 12 5-14 MMOL/L Blood Urea Nitrogen 13 7-18 MG/DL Creatinine 0.69 0.60-1.30 MG/DL Estimat Glomerular Filtration Rate > 60 BUN/Creatinine Ratio 19 Glucose Level 107 H 70-105 MG/DL Lactic Acid Level 0.77 0.50-2.00 MMOL/L Calcium Level 8.9 8.5-10.1 MG/DL Corrected Calcium 9.3 8.5-10.1 MG/DL Magnesium Level 1.9 1.8-2.4 MG/DL Total Bilirubin 1.0 0.1-1.0 MG/DL Aspartate Amino Transf (AST/SGOT) 62 H 5-34 U/L Alanine Aminotransferase (ALT/SGPT) 95 H 0-55 U/L Alkaline Phosphatase 120 40-136 U/L Troponin I < 0.028 <0.028 NG/ML Total Protein 6.7 6.4-8.2 GM/DL Albumin 3.5 3.2-4.5 GM/DL Lipase < 4 L 8-78 U/L Glucometer 107 70-110 MG/DL Urine Color YELLOW Urine Clarity CLEAR Urine pH 8 5-9 Urine Specific [place] 1.010 L 1.016-1.022 Urine Protein 1+ H NEGATIVE Urine Glucose (UA) NEGATIVE NEGATIVE Urine Ketones 3+ H NEGATIVE Urine Nitrite NEGATIVE NEGATIVE Urine Bilirubin NEGATIVE NEGATIVE Urine Urobilinogen NORMAL NORMAL MG/DL Urine Leukocyte Esterase NEGATIVE NEGATIVE Urine RBC (Auto) 1+ H NEGATIVE Urine RBC 2-5 H /HPF Urine WBC 0-2 /HPF Urine Crystals NONE /LPF Urine Bacteria FEW H /HPF Urine Casts NONE /LPF Urine Mucus NEGATIVE /LPF Urine Culture Indicated NO My Orders Orders - LAUREN SIMMS MD Cbc With Automated Diff (09/06/18:45) Protime With Inr (09/06/18:45) Partial Thromboplastin Time (09/06/18:45) Comprehensive Metabolic Panel (09/06/18:45) Fibrin Degradation Products (09/06/18 22:45) Troponin I (09/06/18 22:45) Ua Culture If Indicated (09/06/18:45) Chest 1 View, Ap/Pa Only (09/06/18:45) Ekg Tracing (09/06/18 22:45) Accucheck Stat ONCE (09/06/18 22:45) Ed Iv/Invasive Line Start (09/06/18:45) Ed Iv/Invasive Line Start (09/06/18 22:45) Vital Signs Stroke Patient Q15M (09/06/18 22:45) Ct Head Wo-R/O Stroke (09/06/18 22:45) O2 (09/06/18 22:45) Intake & Output 06,14,22 (09/06/18 22:45) Monitor-Rhythm Ecg Trace Only (09/06/18 22:45) Dysphagia Screening Tool (09/06/18 22:45) Post Thrombolytic Adminstratio (09/06/18 22:45) I-Stat Bedside Testing (09/06/18 22:45) Ct Angio Head/Neck (09/06/18 22:51) Ns Iv 1000 Ml (Sodium Chloride 0.9%) (09/06/18 22:51) Manual Differential (09/06/18 22:40) Fentanyl Injection (Sublimaze Injection (09/06/18 23:15) Potassium Cl 10meq/50ml Ivpb (Kcl 10 Meq (09/06/18 23:30) Magnesium (09/06/18 23:18) Ct Abdomen/Pelvis W (09/06/18 23:32) Lorazepam Injection (Ativan Injection) (09/06/18 23:45) Lipase (09/06/18 23:35) Blood Culture (09/06/18 23:35) Lactic Acid Analyzer (09/06/18 23:35) Iohexol Injection (Omnipaque 350 Mg/Ml 1 (09/07/18 00:00) Received Contrast (Hold Metformin- Contr (09/07/18 00:00) Piperacillin/Tazobactam (Bulk) (Zosyn In (09/07/18 00:15) Piperacillin Sodium/Tazobactam (Zosyn Vi (09/07/18 00:14) Ns (Ivpb) (Sodium Chloride 0.9% Ivpb Bag (09/07/18 00:14) Aspirin Tablet (Aspirin Tablet) (09/07/18 01:30) Medications Given in ED Current Medications Medications Dose Ordered Sig/Nunu Route Start Time Stop Time Status Last Admin Dose Admin Fentanyl Citrate 25 mcg ONCE ONCE IVP 09/06/18 23:15 09/06/18 23:16 DC 09/06/18 23:25 25 MCG Iohexol 150 ml ONCE ONCE IV 09/07/18 00:00 09/07/18 00:01 DC 09/06/18 23:50 150 ML Lorazepam 0.25 mg ONCE ONCE IVP 09/06/18 23:45 09/06/18 23:46 DC 09/06/18 23:49 0.25 MG Piperacillin Sod/ Tazobactam Sod 4.5 gm/Sodium Chloride 120 ml @ 240 mls/hr ONCE ONCE IV 09/07/18 00:15 09/07/18 00:44 DC 09/07/18 00:27 240 MLS/HR Potassium Chloride 50 ml @ 50 mls/hr ONCE ONCE IV 09/06/18 23:30 09/07/18 00:29 DC 09/06/18 23:49 50 MLS/HR Sodium Chloride 1,000 ml @ 0 mls/hr Q0M ONCE IV 09/06/18 22:51 09/06/18 22:52 DC 09/06/18 22:57 0 MLS/HR Vital Signs/I&O 09/06/18 22:35 Temp 100.1 Pulse 73 Resp 18 B/P (MAP) 148/100 (116) Pulse Ox 94 O2 Delivery Room Air 09/07/18 00:00 Intake Total 400 ml Balance 400 ml Blood Pressure Mean: 116 iStat Bedside Lab Testing Sodium (Na): 143.00 Potassium (K): 2.70 Chloride (CI): 99.00 TCO2: 23.00 Glucose (Glu): 107.00 Urea Nitrogen (BUN)/Urea: 14.00 Creatinine (Crea): 0.50 Anion Gap*: 24.00 FSBG Bedside Testing Finger Stick Blood Glucose: 107 Blood Glucose Action Taken: ERP NOTIFIED Progress Progress Note : Progress Note Patient was taken to CT. The CT without contrast was unremarkable for acute hemorrhage or evidence of stroke. This was followed by CT angiogram. No large vessel occlusions were identified but there was stenosis in the 70-80 percent range of the right internal carotid at the bifurcation. A CT perfusion scan had also been ordered but was canceled in favor of CT of the abdomen and pelvis. Patient began to complain of abdominal pain repeatedly while in CT scan. He required fentanyl and Ativan to help calm him for the imaging studies. I discussed the case with Dr. Beltran, stroke neurologist at [facility]. Treatment of pneumonia that was identified by chest x-ray and CT was recommended as the primary course of therapy. If evidence of stroke on the same side as the c arotid stenosis is noted on follow-up imaging, he recommends referral to vascular surgery. Emergent referral to vascular surgery was not felt necessary by Dr. Beltran. Furthermore, he did not feel transfer to a facility with neurology services was necessary. Patient was treated with Zosyn after blood cultures were drawn. Patient was found to be significantly hypokalemic. He was treated with potassium 10 mEq by IV route in the ER. I discussed CODE STATUS with the patient's son who states his prior requests have been DO NOT RESUSCITATE. Initial ECG Impression Date: September 06, 2018 Initial ECG Impression Time: 23:52 Initial ECG Rate: 112 Initial ECG Rhythm: S.Tach Comment Sinus tachycardia with PVCs. No ischemic ST elevation or depression. Diagnostic Imaging Diagonstic Imaging: Xray Plain Films/CT/US/NM/MRI: chest Comments Chest x-ray viewed by me and report not yet available. Compared with prior. There appears to be scattered infiltrate throughout the right lung. This is suggestive of pneumonia. Diagonstic Imaging: CT Plain Films/CT/US/NM/MRI: head Comments CT head viewed by me and discussed with the [facility] radiologist. No acute findings. Mucosal thickening of the sinuses was noted. Reviewed: Reviewed by Me, Discussed w/Radiologist Diagonstic Imaging: CT Plain Films/CT/US/NM/MRI: other (CT angiogram head and neck) Comments CT angiogram head and neck report reviewed. There was atherosclerotic change to the internal carotids without obstruction. CT angiogram of the neck revealed marked calcific atherosclerosis of the carotid bifurcations bilaterally. There was severe right carotid bifurcation ICA stenosis between 70 and 80 percent. T here were inflammatory-appearing infiltrates in the right upper lobe and superior segment of the right lower lobe. Diagonstic Imaging: CT Plain Films/CT/US/NM/MRI: abdomen, pelvis Comments CT abdomen and pelvis report reviewed. There were no acute findings to explain patient's pain. There did appear to be right lower lobe pneumonia. Incidental findings included small hiatal hernia, diverticulosis, and benign-appearing renal cysts. Departure Communication (Admissions) Time/Spoke to Admitting Phy: 01:20 Dr. Welsh Impression Primary Impression: Aphasia Additional Impressions: Confusion Pneumonia Qualified Codes: J18.9 - Pneumonia, unspecified organism Hypokalemia Nausea vomiting and diarrhea Carotid stenosis Qualified Codes: I65.21 - Occlusion and stenosis of right carotid artery Disposition: ADMITTED INPATIENT Condition: Improved Admissions Decision to Admit Reason: Admit from ER (General) Decision to Admit/Date: September 06, 2018 Time/Decision to Admit Time: 22:40 Departure-Patient Inst. Referrals: SADIA SEGUNDO MD (PCP/Family) Primary Care Physician LAUREN SIMMS MD September 07, 2018 01:33
--- OUTSIDE RECORDS SUMMARY | 2018-09-07 01:59 | XMS REPORT | Continuity of Care Document ---
Author Organization Unknown Address Unknown Allergies Active Description Code Type Severity Reaction Onset Reported/Identified Relationship to Patient Clinical Status Yes No Known Medication Allergies Drug N/A N/A Yes baclofen [id number] Drug Allergy Unknown N/A 06/14/2018 Yes metoclopramide [id number] Drug Allergy Unknown N/A 06/14/2018 Medications There is no data. 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 Type Provider Facility Loc./Unit Complaint [id number] 06/05/2018 11:36:00 ACT Unknown Zack Batista MD [id number] 12/05/2016 11:41:08 ACT Document Registration [id number] 06/15/2018 00:51:00 06/20/2018 11:35:00 DIS Inpatient KRISTINA NUNEZ MD [facility] 4TH PNEUMONIA [id number] 09/07/2018 01:26:00 ACT Inpatient KRISTINA NUNEZ MD [facility] 4TH PNEUMONIA,DYSPHAZIA,HYPOKALEMIA,N/V/D,CAROTID [id number] 07/18/2016 09:26:49 ACT BRAULIO CALLE [facility]
--- NOTE | 2018-09-07 02:30 | NUR ---
attempted to start Telesitter. unavailable at this time, supervisor record press notified of situation.
--- NOTE | 2018-09-07 03:15 | NUR ---
telesittter online. report given to
[2018-09-07] MEDS ORDERED: RT-ALBUTEROL/IPRATROPIUM 3 ML (DUONEB) VIAL INH PRN (04:00)
[2018-09-07] MEDS ORDERED: fentaNYL PATCH 75 MCG (DURAGESIC) TOP SCH (04:15)
[2018-09-07] MEDS: NS IV 1000 ML 1,000 ML IV SCH ×4 (05:55→23:41)
[2018-09-07] MEDS: POTASSIUM CL 10 MEQ/50 ML IVPB (PRE-MIX) IV SCH ×4 (05:56→11:49)
[2018-09-07] MEDS: RT-ALBUTEROL/IPRATROPIUM 3 ML (DUONEB) VIAL INH SCH ×4 (06:22→19:08)
[2018-09-07 06:32] LABS: BASOPHILS % (AUTO) 0 % (0-10); EOSINOPHILS # (AUTO) 0.1 10^3/uL (0.0-0.3); EOSINOPHILS % (AUTO) 1 % (0-10); HEMATOCRIT 34 % (40-54); HEMOGLOBIN 11.2 G/DL (13.3-17.7); LYMPHOCYTES # (AUTO) 1.9 X 10^3 (1.0-4.0); LYMPHOCYTES % (AUTO) 15 % (12-44); MEAN CORPUSCULAR HEMOGLOBIN 29 PG (25-34); MEAN CORPUSCULAR HGB CONC 33 G/DL (32-36); MEAN CORPUSCULAR VOLUME 88 FL (80-99); MEAN PLATELET VOLUME 10.8 FL (7.4-10.4); MONOCYTES % (AUTO) 8 % (0-12); NEUTROPHILS # (AUTO) 9.8 X 10^3 (1.8-7.8); NEUTROPHILS % (AUTO) 77 % (42-75); PLATELET COUNT 175 10^3/uL (130-400); RED CELL DISTRIBUTION WIDTH 13.6 % (10.0-14.5); WHITE BLOOD COUNT 12.8 10^3/uL (4.3-11.0)
[2018-09-07 06:53] LABS: BUN/CREATININE RATIO 16; CALCIUM 8.9 MG/DL (8.5-10.1); CARBON DIOXIDE 19 MMOL/L (21-32); CHLORIDE 106 MMOL/L (98-107); CHOLESTEROL 131 MG/DL (< 200); CREATININE SERUM 0.67 MG/DL (0.60-1.30); GFR ESTIMATED > 60; GLUCOSE 93 MG/DL (70-105); HDL CHOLESTEROL 56 MG/DL (40-60); SODIUM 137 MMOL/L (135-145); TRIGLYCERIDES 63 MG/DL (<150); VLDL CHOLESTEROL 13 MG/DL (5-40)
[2018-09-07 07:16] LABS: POTASSIUM 2.5 MMOL/L (3.6-5.0)
[2018-09-07] MEDS ORDERED: KCL 20 MEQ POWDER FOR ORAL SOLUTION PO ONE (07:30)
--- NOTE | 2018-09-07 07:54 | Diagnostic Imaging Report ---
PROCEDURE: CT angiography of the head and CT angiography of the neck with and without contrast. TECHNIQUE: Contiguous noncontrast images were obtained from the skull base through the vertex. After intravenous contrast administration, helical CT angiography of the neck was performed. Source data was reformatted into multiple MIP projections. Delayed post contrast acquisition was also obtained. Auto Exposure Controls were utilized during the CT exam to meet ALARA standards for radiation dose reduction. INDICATION: Altered mental status. COMPARISON: CT head without contrast from earlier today. FINDINGS: Noncontrast head CT was not repeated. Post contrast imaging of the head continues to demonstrate no CT evidence for territorial infarction or intracranial hemorrhage. Moderate generalized cerebral and cerebellar parenchymal volume loss. No hydrocephalus or extra-axial fluid collections. CTA demonstrates conventional aortic arch. Moderate atherosclerotic calcifications result in less than 50% narrowing of the left internal carotid artery origin and cavernous ICAs bilaterally. There is 70-90% narrowing of the right internal carotid artery origin. No other high-grade arterial narrowing, aneurysm or dissection involving the major arteries of the head and neck. Advanced spondylotic changes in the cervical spine appear to result in high-grade spinal canal narrowing at C5-C6 and C6-C7. No acute osseous findings. Diffuse groundglass opacities in the visualized upper lungs, right greater than left. Biapical scarring, right greater than left. IMPRESSION: 1. Atherosclerotic disease results in 70-90% narrowing of the right internal carotid artery origin. No other high-grade arterial narrowing, aneurysm or dissection involving the major arteries in the head and neck. 2. Diffuse groundglass opacities in the visualized lungs, right greater than left. Findings could be infectious or inflammatory, possibly due to edema. Neoplastic process is not excluded. 3. Advanced spondylotic changes in the cervical spine likely result in high-grade spinal canal narrowing at C5-C7. This could be better evaluated with CT myelogram or MRI if clinically warranted. Dictated by: Dictated on workstation # [id number]
--- NOTE | 2018-09-07 07:58 | Diagnostic Imaging Report ---
PROCEDURE: CT head wo r/o stroke. TECHNIQUE: Multiple contiguous axial images were obtained through the brain without the use of intravenous contrast. Auto Exposure Controls were utilized during the CT exam to meet ALARA standards for radiation dose reduction. INDICATION: Stroke. COMPARISON: None. FINDINGS: Moderate generalized cerebral and cerebellar parenchymal volume loss. Moderate leukoaraiosis. No intracranial hemorrhage, mass effect, hydrocephalus or extra-axial fluid collections. No CT evidence of an acute territorial infarction. Small air-fluid levels in the maxillary sinuses. The mastoids are clear. No fractures. IMPRESSION: No acute intracranial CT findings. Chronic findings as above. Dictated by: Dictated on workstation # [id number]
--- NOTE | 2018-09-07 08:26 | Diagnostic Imaging Report ---
PROCEDURE: CT abdomen and pelvis with contrast. TECHNIQUE: Multiple contiguous axial images were obtained through the abdomen and pelvis after administration of intravenous contrast. Auto Exposure Controls were utilized during the CT exam to meet ALARA standards for radiation dose reduction. INDICATION: Upper abdominal pain. Comparison made to the prior study from 06/14/2018. FINDINGS: There are some patchy regions of alveolar opacification within the visualized portion of the right upper lobe that may reflect a developing pneumonia. There is also patchy atelectasis or infiltrate at both lung bases. There are small trace bilateral pleural effusions. Coronary calcifications are noted. There is a trace degree of pericardial fluid. The liver demonstrates no noncontrast evidence of focal abnormality. The patient is status post cholecystectomy. There is intra and extrahepatic bile duct dilatation with the common bile duct measuring up to 10 mm. This is not significantly changed from the prior examination. Correlate with liver function tests. The spleen is normal in size. Pancreas demonstrates no focal abnormality. Bilateral renal cysts are unchanged. There is no hydronephrosis. There is no adrenal mass. There is a small hiatal hernia. The stomach is nondistended. Duodenal sweep normal. Small and large bowel normal in caliber without findings of bowel obstruction. Diverticulosis is present without diverticulitis. There is no abnormal bowel thickening. There is no focal inflammation within the omentum or mesentery or findings of free air, free fluid or abscess. The bladder is mildly distended and trabeculated with numerous bladder diverticula not significantly changed from prior exam. There has been previous left femoral neck fixation as well as lumbar spinal fusion. Thoracic epidural stimulator is also in place. IMPRESSION: 1. Probable right upper lobe pneumonia with bibasilar atelectasis versus infiltrate. 2. Trace bilateral pleural effusions. 3. Small hiatal hernia with uncomplicated diverticulosis. There is no bowel obstruction. 4. Previous cholecystectomy with stable intra-and extrahepatic biliary ductal dilatation. This is likely compatible with postcholecystectomy state but correlation with liver function tests could be considered. 5. Benign renal cyst unchanged with moderate bladder wall distention, trabecula and diverticula formation. 6. I agree with the preliminary [facility] report. Dictated by: Dictated on workstation # [id number]
[2018-09-07] MEDS: PIPERACILLIN/TAZOBACTAM (BULK) 4.5 GM in NS (IVPB) 100 ML IV SCH ×3 (08:35→21:29)
[2018-09-07] MEDS ORDERED: ONDANSETRON 4 MG/2 ML (SDV) Z0FRAN IVP PRN (08:45)
--- NOTE | 2018-09-07 09:05 | Diagnostic Imaging Report ---
INDICATION: Altered mental status. TECHNIQUE: Single view chest 10:50 PM. CORRELATION STUDY: 06/19/2018 FINDINGS: Heart size remains enlarged. There is a component of vascular congestion. Scattered patchy pulmonary parenchymal densities persisting throughout the lung bronson most pronounced in the perihilar and upper lobe distributions, right greater than left. Thoracic spine stimulator lead remains in place. IMPRESSION: 1. Scattered patchy pulmonary parenchymal densities right lung greater than left favoring probable multifocal pneumonia versus asymmetric patchy areas of edema. Some degree of vascular congestion is also suggested. Followup imaging would be recommended. Dictated by: Dictated on workstation # [id number]
[2018-09-07] MEDS: ONDANSETRON 4 MG/2 ML (SDV) Z0FRAN IV PRN ×2 (09:18→20:14)
[2018-09-07] MEDS ORDERED: DEXT15DR26 (10:15)
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
[2018-09-07] MEDS ORDERED: PATIENT MAY USE OWN MED,SINGLE MED PO SCH (11:15)
[2018-09-07] MEDS ORDERED: RT-ALBUTEROL/IPRATROPIUM 3 ML (DUONEB) VIAL IH PRN (11:15)
[2018-09-07] MEDS ORDERED: ONDANSETRON 4 MG (ZOFRAN) ORAL DISSOLVE TAB PO PRN (11:15)
[2018-09-07] MEDS ORDERED: RT-ALBUTEROL SULF 2.5 MG/3 ML PRE-MIX VIAL INH PRN (11:15)
[2018-09-07] MEDS ORDERED: IBUPROFEN TABLET 200 MG TAB PO PRN (11:30)
[2018-09-07] MEDS ORDERED: SENNA W/DOCUSATE (SENOKOT S) TABLET PO PRN (11:45)
[2018-09-07] MEDS: ASPIRIN E.C. 325 MG (ECOTRIN) TABLET PO SCH (12:04)
[2018-09-07] MEDS ORDERED: GABAPENTIN 300 MG (NEURONTIN) CAP PO SCH (13:00)
[2018-09-07] MEDS: GABAPENTIN 300 MG (NEURONTIN) CAP PO SCH ×2 (15:56→20:14)
[2018-09-07] MEDS ORDERED: fentaNYL PATCH 100 MCG (DURAGESIC) ONE (18:30)
[2018-09-07] MEDS: fentaNYL PATCH 100 MCG (DURAGESIC) TD SCH (19:30)
[2018-09-07] MEDS: KCL 20 MEQ TAB (K-DUR) PO SCH (20:13)
[2018-09-08 04:00] VITALS: BP 157/62
[2018-09-08] MEDS: PIPERACILLIN/TAZOBACTAM (BULK) 4.5 GM in NS (IVPB) 100 ML IV SCH ×3 (05:37→21:42)
[2018-09-08 05:57] LABS: BASOPHILS % (AUTO) 0 % (0-10); EOSINOPHILS # (AUTO) 0.3 10^3/uL (0.0-0.3); EOSINOPHILS % (AUTO) 4 % (0-10); HEMATOCRIT 33 % (40-54); LYMPHOCYTES % (AUTO) 12 % (12-44); MEAN CORPUSCULAR HGB CONC 34 G/DL (32-36); MEAN CORPUSCULAR VOLUME 88 FL (80-99); MEAN PLATELET VOLUME 10.9 FL (7.4-10.4); MONOCYTES # (AUTO) 0.7 X 10^3 (0.0-1.0); MONOCYTES % (AUTO) 8 % (0-12); NEUTROPHILS # (AUTO) 6.4 X 10^3 (1.8-7.8); NEUTROPHILS % (AUTO) 76 % (42-75); PLATELET COUNT 188 10^3/uL (130-400); RED CELL DISTRIBUTION WIDTH 13.9 % (10.0-14.5); WHITE BLOOD COUNT 8.5 10^3/uL (4.3-11.0)
[2018-09-08 05:59] LABS: MEAN CORPUSCULAR HEMOGLOBIN 29 PG (25-34)
[2018-09-08] MEDS: KCL 20 MEQ TAB (K-DUR) PO SCH ×2 (06:04→18:11)
[2018-09-08 06:14] LABS: ALANINE AMINOTRANSFERASE 70 U/L (0-55); ALBUMIN 3.1 GM/DL (3.2-4.5); ALKALINE PHOSPHATASE 118 U/L (40-136); BILIRUBIN,TOTAL 1.1 MG/DL (0.1-1.0); BUN/CREATININE RATIO 13; CALCIUM 8.4 MG/DL (8.5-10.1); CARBON DIOXIDE 19 MMOL/L (21-32); CHLORIDE 110 MMOL/L (98-107); CREATININE SERUM 0.67 MG/DL (0.60-1.30); GFR ESTIMATED > 60; GLUCOSE 87 MG/DL (70-105); POTASSIUM 3.5 MMOL/L (3.6-5.0); SODIUM 138 MMOL/L (135-145)
[2018-09-08] MEDS: RT-ALBUTEROL/IPRATROPIUM 3 ML (DUONEB) VIAL INH SCH ×4 (06:25→19:17)
[2018-09-08] MEDS ORDERED: KCL 20 MEQ TAB (K-DUR) PO SCH (07:00)
[2018-09-08 07:35] VITALS: BP 164/76
[2018-09-08] MEDS: PARoxetine 20 MG (PAXIL) TAB PO SCH (08:54)
[2018-09-08] MEDS: GABAPENTIN 300 MG (NEURONTIN) CAP PO SCH ×3 (08:54→21:42)
[2018-09-08] MEDS: ASPIRIN E.C. 325 MG (ECOTRIN) TABLET PO SCH (08:55)
[2018-09-08] MEDS: amLODIPine 10 MG (NORVASC) TAB PO SCH (08:55)
[2018-09-08] MEDS: FERROUS SULF 325 MG (IRON) TAB PO SCH (08:55)
[2018-09-08] MEDS: LORATADINE (CLARITIN) 10 MG TAB PO SCH (08:56)
[2018-09-08] MEDS: PANTOPRAZOLE 20 MG TABLET (PROTONIX) PO SCH (08:56)
[2018-09-08] MEDS: TAMSULOSIN 0.4 MG (FLOMAX) CAP PO SCH (08:56)
[2018-09-08] MEDS ORDERED: NON-FORMULARY MEDICATION 1 EA EA (Umeclidinium Brm/Vilanterol Tr (Anoro Ellipta 62.5-25 Mc IH SCH (09:00)
[2018-09-08] MEDS ORDERED: [UNRECOGNIZED DRUG - OTHER] PO SCH (09:00)
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
[2018-09-08 11:42] VITALS: BP 140/73
--- NOTE | 2018-09-08 12:13 | Diagnostic Imaging Report ---
INDICATION: Pneumonia, followup. TECHNIQUE: Two-view chest, 11:31 a.m. CORRELATION STUDY: 09/06/2018. FINDINGS: Scattered pulmonary parenchymal densities are again demonstrated. There appears to be slightly more focal consolidated density about the right mid and upper lung bronson, appearing progressed and more prominent from prior study. Heart size, mediastinum, and vasculature overall are stable. Thoracic spine stimulator lead present. Asymmetric biapical pleural thickening, right greater than left. Mildly compressed lower thoracic vertebral bodies. IMPRESSION: 1. Patchy bilateral pulmonary infiltrates are present. This is more consolidated and increased in severity particularly at the right mid and upper lung bronson favoring more focal consolidated pneumonia. Followup imaging to resolution recommended. Dictated by: Dictated on workstation # [id number]
[2018-09-08] MEDS: NS IV 1000 ML 1,000 ML IV SCH (14:19)
[2018-09-08 15:18] VITALS: BP 117/67
[2018-09-08 19:40] VITALS: BP 120/57
[2018-09-09 00:16] VITALS: BP 127/62
[2018-09-09] MEDS: NS IV 1000 ML 1,000 ML IV SCH ×2 (03:16→18:28)
[2018-09-09 04:44] VITALS: BP 158/72
[2018-09-09 05:37] LABS: BASOPHILS % (AUTO) 0 % (0-10); EOSINOPHILS # (AUTO) 0.7 10^3/uL (0.0-0.3); EOSINOPHILS % (AUTO) 10 % (0-10); HEMATOCRIT 33 % (40-54); HEMOGLOBIN 10.6 G/DL (13.3-17.7); LYMPHOCYTES # (AUTO) 1.1 X 10^3 (1.0-4.0); LYMPHOCYTES % (AUTO) 17 % (12-44); MEAN CORPUSCULAR HEMOGLOBIN 29 PG (25-34); MEAN CORPUSCULAR HGB CONC 32 G/DL (32-36); MEAN CORPUSCULAR VOLUME 89 FL (80-99); MEAN PLATELET VOLUME 10.7 FL (7.4-10.4); MONOCYTES # (AUTO) 0.7 X 10^3 (0.0-1.0); MONOCYTES % (AUTO) 10 % (0-12); NEUTROPHILS # (AUTO) 4.1 X 10^3 (1.8-7.8); NEUTROPHILS % (AUTO) 63 % (42-75); PLATELET COUNT 217 10^3/uL (130-400); RED CELL DISTRIBUTION WIDTH 13.7 % (10.0-14.5); WHITE BLOOD COUNT 6.6 10^3/uL (4.3-11.0)
[2018-09-09 05:57] LABS: ALANINE AMINOTRANSFERASE 51 U/L (0-55); ALKALINE PHOSPHATASE 110 U/L (40-136); BILIRUBIN,TOTAL 0.5 MG/DL (0.1-1.0); BUN/CREATININE RATIO 14; CALCIUM 8.6 MG/DL (8.5-10.1); CARBON DIOXIDE 20 MMOL/L (21-32); CHLORIDE 111 MMOL/L (98-107); CREATININE SERUM 0.73 MG/DL (0.60-1.30); GFR ESTIMATED > 60; GLUCOSE 93 MG/DL (70-105); MAGNESIUM 1.7 MG/DL (1.8-2.4); SODIUM 141 MMOL/L (135-145); TOTAL PROTEIN 5.8 GM/DL (6.4-8.2)
[2018-09-09] MEDS: KCL 20 MEQ TAB (K-DUR) PO SCH ×2 (06:17→18:20)
[2018-09-09] MEDS: PIPERACILLIN/TAZOBACTAM (BULK) 4.5 GM in NS (IVPB) 100 ML IV SCH (06:20)
[2018-09-09] MEDS: RT-ALBUTEROL/IPRATROPIUM 3 ML (DUONEB) VIAL INH SCH ×4 (06:50→19:50)
[2018-09-09 08:00] VITALS: BP 122/65
[2018-09-09] MEDS: PANTOPRAZOLE 20 MG TABLET (PROTONIX) PO SCH (09:11)
[2018-09-09] MEDS: GABAPENTIN 300 MG (NEURONTIN) CAP PO SCH ×3 (09:11→21:04)
[2018-09-09] MEDS: ASPIRIN E.C. 325 MG (ECOTRIN) TABLET PO SCH (09:11)
[2018-09-09] MEDS: TAMSULOSIN 0.4 MG (FLOMAX) CAP PO SCH (09:12)
[2018-09-09] MEDS: LORATADINE (CLARITIN) 10 MG TAB PO SCH (09:12)
[2018-09-09] MEDS: FERROUS SULF 325 MG (IRON) TAB PO SCH (09:12)
[2018-09-09] MEDS: PARoxetine 20 MG (PAXIL) TAB PO SCH (09:12)
[2018-09-09] MEDS: amLODIPine 10 MG (NORVASC) TAB PO SCH (09:12)
--- NOTE | 2018-09-09 10:31 | Physical Therapy Evaluation ---
PT Evaluation-General Medical Diagnosis Admission Date September 07, 2018 at 01:26 Medical Diagnosis: pneumonia Onset Date: September 07, 2018 Therapy Diagnosis Therapy Diagnosis: impaired mobility, strength, endurance Height/Weight Height (Feet): 5 Height (Inches): 8.00 Weight (Pounds): 180 Weight (Ounces): 0.0 Precautions Precautions/Isolations: Fall Prevention, Standard Precautions Weight Bear Status Right Lower Extremity: Right Weight Bearing/Tolerated Left Lower Extremity: Left Weight Bearing/Tolerated Referral Physician: Manisha Welsh MD Reason for Referral: Evaluation/Treatment Medical History Pertinent Medical History: Arthritis, Neuropathy Additional Medical History Past Medical History Surgeries: Eye Surgery, Orthopedic Respiratory: Pneumonia Currently Using CPAP: No Currently Using BIPAP: No Cardiac: Hypertension Neurological: Concussion, Neuropathy, Traumatic Brain Injury Genitourinary: Prostate Problems, UTI-Chronic Gastrointestinal: Gall Bladder Disease Musculoskeletal: Arthritis Hearing Impairment: Hard of Hearing, Hearing Aide Right, Deaf Cancer: Lung Did You Recieve Any Treatments: Yes What Type of Treatment Did You: Chemotherapy History of Blood Disorders: No Adverse Reaction to Blood Buitrago: No Current History Patient went to ER with nausea, vomiting, incontinent of stool Reviewed History: Yes Social History Home: Single Level Current Living Status: Alone Entry Into Home: Ramp Prior/Core FIM Prior Level of Function Therapy Code Descriptions/Definitions Functional [place] Measure: 0=Not Assessed/NA 4=Minimal Assistance 1=Total Assistance 5=Supervision or Setup 2=Maximal Assistance 6=Modified [place] 3=Moderate Assistance 7=Complete [place] Therapy Quality Codes: 6 Independent with activity with or without an assistive device 5 Patient requires set up or clean up by helper. Patient completes activity by themselves 4 Supervision or touching assist (CGA). [place] provide cues , steadying assist 3 The helper provides less than half the effort to complete the activity 2 The helper provides more than half the effort to complete the activity 1 Dependent. The helper does all the effort to complete an activity 7 Patient refused to complete or attempt activity 9 The patient did not perform the activity before the current illness or injury 88 Not attempted due to Medical conditions or safety concerns Functional Abilities and Goals: Independent: Patient completed the activities by him/herself, with or without an assistive device, with no assistance from a helper. Needed Some Help: Patient needed partial assistance from another person to complete activities. Dependent: A helper completed the activities for the patient. Unknown: Not Applicable: Bed Mobility: 6 Transfers (B,C,W/C) (FIM): 6 Gait: 6 Indoor Mobility (Ambulation): Independent Patient was using a 4-wheeled walker previously PT Evaluation-Current Subjective Patient in bed pre tx, agrees to PT, has some unrated pain in his right calf. Aung test is negative but he has pain with squeeze or pressure on his right calf. Patient needs a gown and his brief changed (max assist). Pt/Family Goals to be independent at home Objective Patient Orientation: Person, Place, Situation Attachments: Oxygen, IV 3L of O2 nasal canula ROM/Strength ROM Lower Extremities WNL Strength Lower Extremities 4/5 gross bilateral lower extremities Neuromuscular (Tone, Coordination, Reflexes) NT Sensory Hearing: Functional Sensation Right Lower Extremit: Impaired Sensation Left Lower Extremity: Impaired Sensation Lower Extremities Patient seems to have decreased light touch sensation in both feet. Transfers Therapy Code Descriptions/Definitions Functional [place] Measure: 0=Not Assessed/NA 4=Minimal Assistance 1=Total Assistance 5=Supervision or Setup 2=Maximal Assistance 6=Modified [place] 3=Moderate Assistance 7=Complete [place] Transfers (B, C, W/C) (FIM): 4 Scootin Rollin Supine to/from Sit: 5 Sit to/from Stand: 4 Min assist for sit to stand and transfers, cues for hand placement and safety. Gait Mode of Locomotion: Walk Anticipated Mode of Locomotion: Walk Gait (FIM): 1 Distance: 5' Gait Level of Assist: 4 Gait Persons Needed: 1 Gait Assistive Device: FWW Comments/Gait Description Min assist mostly to help guide walker. Patient ambulated a few feet from bed to recliner. Balance Sitting Static: Normal Sitting Dynamic: Normal Standing Static: Fair Standing Dynamic: Fair Treatment BLE exercises x15 (AP, LAQ) Assessment/Needs Patient has impaired mobility, strength, endurance. Patient in recliner post tx with nurse call, phone, tray, chair alarm on and telesitter in room. Nurse aide in room to change his gown (which got urine on it). Rehab Potential: Fair PT Short Term Goals Short Term Goals Time Frame: September 16, 2018 Transfers (B,C,W/C) (FIM): 5 Gait (FIM): 1 Gait Distance Comment: 20' Gait Level of Assist: 4 Gait Assistive Device: FWW PT Plan Problem List Problem List: Activity Tolerance, Functional Strength, Safety, Balance, Gait, Transfer, Bed Mobility Treatment/Plan Treatment Plan: Continue Plan of Care Treatment Plan: Bed Mobility, Education, Functional Activity Herrera, Functional Strength, Gait, Safety, Therapeutic Exercise, Transfers Treatment Duration: September 16, 2018 Frequency: 6 times per week Estimated Hrs Per Day: .25 hour per day (15-30') Patient and/or Family Agrees t: Yes Safety Risks/Education Patient Education: Gait Training, Transfer Techniques, Correct Positioning, Safety Issues Teaching Recipient: Patient Teaching Methods: Demonstration, Discussion Response to Teaching: Reinforcement Needed Discharge Recommendations Plan Patient will perform bed mobility and transfer training, balance and endurance training, functional strengthening, stair training, gait training, and education, to improve functional mobility and independence at home. Therapy D/C Recommendations: Acute Rehab, Home w/ Family Support, [facility]fp (TCU/NH) Time/GCodes Time In: 905 Time Out: 925 Total Billed Treatment Time: 20 Total Billed Treatment 1 visit EVM 20' ZORA CORDERO PT September 09, 2018 10:31
[2018-09-09 12:31] VITALS: BP 130/64
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
--- NOTE | 2018-09-09 14:13 | Progress Note-Hospitalist ---
Progress Note Progress Notes/Assess & Plan Date Seen 09/09/18 Time Seen by Provider: 14:09 Assessment & Plan The patient is a 77-year-old white male who was sent here from the the [facility] emergency room after presenting with a decline in function including confusion. He was found to have an apparent pneumonia with a white count of 14,000. In addition he is potassium was 2.5. He has shown improvement here but remains quite weak. Physical exam: He is a bit inconsistent on details. He is alert. Lungs are clear to auscultation. CV is regular without murmur. Note: White count has fallen from 14,002 to 6600. His potassium has been replaced and has gone from 2.5-4.0. Impression: Pneumonia, resolving. 2.hypokalemia restored. 3.general decline in the ability of daily living. Plan: Continue antibiotics. 2.IRFreferral Focused Exam Lactate Level 09/06/18 22:40: Lactic Acid Level 0.77 TROY ABDI MD September 09, 2018 14:13
[2018-09-09 15:25] VITALS: BP 135/60
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
[2018-09-09] MEDS: AUGMENTIN 875 MG TAB (AMOXICILLIN/CLAVULANATE) PO SCH (18:19)
[2018-09-09 19:59] VITALS: BP 115/59
[2018-09-10] VITALS (7 sets, daily range): BP systolic 118–158; BP diastolic 63–89
[2018-09-10] MEDS: AUGMENTIN 875 MG TAB (AMOXICILLIN/CLAVULANATE) PO SCH ×2 (05:33→17:09)
[2018-09-10] MEDS: RT-ALBUTEROL/IPRATROPIUM 3 ML (DUONEB) VIAL INH SCH ×4 (07:24→19:19)
[2018-09-10] MEDS: PANTOPRAZOLE 20 MG TABLET (PROTONIX) PO SCH (09:22)
[2018-09-10] MEDS: ASPIRIN E.C. 325 MG (ECOTRIN) TABLET PO SCH (09:22)
--- NOTE | 2018-09-10 09:22 | NUR ---
IRF Evaluation Order received to evaluate patient for the ARU. Chart reviewed and discussed with Dr. Sullivan - patient accepted. This worker met with patient to discuss details or rehabilitation program. Patient is agreeable to required therapy regimen and admission. Will continue to follow. Thank you for this referral.
[2018-09-10] MEDS: PARoxetine 20 MG (PAXIL) TAB PO SCH (09:23)
[2018-09-10] MEDS: amLODIPine 10 MG (NORVASC) TAB PO SCH (09:23)
[2018-09-10] MEDS: KCL 20 MEQ TAB (K-DUR) PO SCH (09:23)
[2018-09-10] MEDS: GABAPENTIN 300 MG (NEURONTIN) CAP PO SCH ×3 (09:23→20:16)
[2018-09-10] MEDS: LORATADINE (CLARITIN) 10 MG TAB PO SCH (09:23)
[2018-09-10] MEDS: TAMSULOSIN 0.4 MG (FLOMAX) CAP PO SCH (09:23)
[2018-09-10] MEDS: FERROUS SULF 325 MG (IRON) TAB PO SCH (09:23)
[2018-09-10] MEDS ORDERED: fentaNYL PATCH 100 MCG (DURAGESIC) TD SCH (11:15)
--- NOTE | 2018-09-10 11:39 | Physical Therapy Daily Note ---
PT Daily Note-Current Subjective Patient in recliner pre tx, agrees to PT, no complaints of pain. Patient seems much more confused this morning. He thinks it is night time and wants to go to bed. Appearance Patient in recliner post tx with nurse call, phone, tray, chair alarm on. At the end of treatment patient states that he has a headache and is dizzy. Nurse notified and aide is in room taking vitals. Mental Status Patient Orientation: Person, Confused Attachments: Oxygen Transfers Therapy Code Descriptions/Definitions Functional [place] Measure: 0=Not Assessed/NA 4=Minimal Assistance 1=Total Assistance 5=Supervision or Setup 2=Maximal Assistance 6=Modified [place] 3=Moderate Assistance 7=Complete [place] Therapy Quality Codes: 6 Independent with activity with or without an assistive device 5 Patient requires set up or clean up by helper. Patient completes activity by themselves 4 Supervision or touching assist (CGA). [place] provide cues , steadying assist 3 The helper provides less than half the effort to complete the activity 2 The helper provides more than half the effort to complete the activity 1 Dependent. The helper does all the effort to complete an activity 7 Patient refused to complete or attempt activity 9 The patient did not perform the activity before the current illness or injury 88 Not attempted due to Medical conditions or safety concerns Transfers (B, C, W/C) (FIM): 5 Sit to/from Stand: 5 Bed to/from Chair: 4 CGA for transfers, cues for hand placement and safety. Weight Bearing Right Lower Extremity: Right Weight Bearing/Tolerated Left Lower Extremity: Left Weight Bearing/Tolerated Gait Training Gait (FIM): 2 Distance: 80' Gait Level of Assist: 4 Gait Persons Needed: 1 Gait Assistive Device: FWW CGA, some unsteadiness but no gian LOB. Patient ambulates with very little weight bearing on the front of his right foot, he almost seems to try to keep it dorsiflexed and everted. Exercises Seated Therapy Exercises: Ankle pumps, Long arc quads, Hip flexion Seated Reps: 15 Treatments ambulation, LE exercises Assessment Current Status: Fair Progress improved endurance and distance of ambulation but increased confusion PT Short Term Goals Short Term Goals Time Frame: September 16, 2018 Transfers (B,C,W/C) (FIM): 5 Gait (FIM): 1 Gait Distance Comment: 20' Gait Level of Assist: 4 Gait Assistive Device: FWW PT Plan Problem List Problem List: Activity Tolerance, Functional Strength, Safety, Balance, Gait, Transfer, Bed Mobility, ROM Treatment/Plan Treatment Plan: Continue Plan of Care Treatment Plan: Bed Mobility, Education, Functional Activity Herrera, Functional Strength, Gait, Safety, Therapeutic Exercise, Transfers Treatment Duration: September 16, 2018 Frequency: 6 times per week Estimated Hrs Per Day: .25 hour per day (15-30') Patient and/or Family Agrees t: Yes Safety Risks/Education Patient Education: Gait Training, Transfer Techniques, Correct Positioning, Safety Issues Teaching Recipient: Patient Teaching Methods: Demonstration, Discussion Response to Teaching: Reinforcement Needed Time/GCodes Time In: 1118 Time Out: 1133 Total Billed Treatment Time: 15 Total Billed Treatment 1 visit FA 15' ZORA CORDERO PT September 10, 2018 11:38
--- NOTE | 2018-09-10 16:20 | Progress Note-Hospitalist ---
Progress Note Progress Notes/Assess & Plan Date Seen 09/10/18 Time Seen by Provider: 16:25 Assessment & Plan The patient reports that he continues to feel better and stronger. He is to go to the inpatient rehabilitation facility tomorrow. He states that he does not use oxygen at home although he has. Physical exam: He is alert and reasonably oriented. Lungs are clear to auscultation but distant CV is regular. Impression: Pneumonia resolving. Plan: Inpatient rehabilitation facility tomorrow TROY ABDI MD September 10, 2018 16:20
[2018-09-10] MEDS: fentaNYL PATCH 100 MCG (DURAGESIC) TD SCH (18:19)
[2018-09-11] VITALS: BP 151/70
[2018-09-11 04:00] VITALS: BP 143/75
[2018-09-11] MEDS: AUGMENTIN 875 MG TAB (AMOXICILLIN/CLAVULANATE) PO SCH (06:04)
[2018-09-11] MEDS: RT-ALBUTEROL/IPRATROPIUM 3 ML (DUONEB) VIAL INH SCH (07:51)
[2018-09-11 08:02] VITALS: BP 122/70
[2018-09-11] MEDS: LORATADINE (CLARITIN) 10 MG TAB PO SCH (09:43)
[2018-09-11] MEDS: GABAPENTIN 300 MG (NEURONTIN) CAP PO SCH (09:43)
[2018-09-11] MEDS: PARoxetine 20 MG (PAXIL) TAB PO SCH (09:43)
[2018-09-11] MEDS: FERROUS SULF 325 MG (IRON) TAB PO SCH (09:43)
[2018-09-11] MEDS: PANTOPRAZOLE 20 MG TABLET (PROTONIX) PO SCH (09:44)
[2018-09-11] MEDS: KCL 20 MEQ TAB (K-DUR) PO SCH (09:44)
[2018-09-11] MEDS: TAMSULOSIN 0.4 MG (FLOMAX) CAP PO SCH (09:44)
[2018-09-11] MEDS: amLODIPine 10 MG (NORVASC) TAB PO SCH (09:44)
[2018-09-11] MEDS: ASPIRIN E.C. 325 MG (ECOTRIN) TABLET PO SCH (09:44)
--- NOTE | 2018-09-11 09:57 | Progress Note-Hospitalist ---
Progress Note Progress Notes/Assess & Plan Date Seen 09/11/18 Time Seen by Provider: 09:53 Assessment & Plan tHE PATIENT IS SITTING in his chair at bedside. He reports he continues to feel better. He is noted to have some involuntary movements of the jaw and right hand. He has been accepted for the inpatient rehabilitation facility and will be discharged there. He has no complaints today. Physical exam: He is alert. Lungs are clear to auscultation. CV is regular without murmur abdomen is soft. Extremities show no pedal edema. Impression: Resolving pneumonia. 2.untyped tremor disorder. 3.physical detuning Plan: Transferred to IRF TROY ABDI MD September 11, 2018 09:57
--- NOTE | 2018-09-11 10:38 | NUR ---
REPORT GIVEN TO SANAM CASTELAN IN ARU. PT TAKEN VIA WHEELCHIAR BY PHYSICAL THERAPY STAFF AT 1040. ALL BELONGINGS SENT WITH PT.
[2018-09-11] MEDS ORDERED: NYST15CR TOP (11:38)
[2018-09-11] MEDS ORDERED: MINE3.5O2 OU (11:38)
[2018-09-11] MEDS ORDERED: OMEP20CA12 PO (11:38)
[2018-09-11] MEDS ORDERED: FENT1PAT60 TD (11:38)
[2018-09-11] MEDS ORDERED: TAMS0.4C98 PO (11:38)
[2018-09-11] MEDS ORDERED: TRIA80OI TOP (11:38)
[2018-09-11] MEDS ORDERED: IBUP-2055 PO (11:38)
[2018-09-11] MEDS ORDERED: SENN-145 PO (11:38)
[2018-09-11] MEDS ORDERED: OXYC-529 PO (11:38)
== END 2018-09-11 10:40 | DRG 178 ==
LOC: EDUNIT# 22:33 → ER 22:34 → 4TH 09-07 01:26
PROVIDERS: ADMIT Internal Medicine; ATTEND Internal Medicine
DX: J69.0 Pneumonitis due to inhalation of food and vomit (principal); R41.0 Disorientation, unspecified; R47.01 Aphasia; R11.2 Nausea with vomiting, unspecified; R19.7 Diarrhea, unspecified; I65.21 Occlusion and stenosis of right carotid artery; E87.6 Hypokalemia; Z66 Do not resuscitate; R25.1 Tremor, unspecified; R29.706 NIHSS score 6; F41.9 Anxiety disorder, unspecified; G89.21 Chronic pain due to trauma; K59.00 Constipation, unspecified; H91.91 Unspecified hearing loss, right ear; J44.9 Chronic obstructive pulmonary disease, unspecified; J30.2 Other seasonal allergic rhinitis; I10 Essential (primary) hypertension; I49.3 Ventricular premature depolarization; G62.9 Polyneuropathy, unspecified; N42.9 Disorder of prostate, unspecified; M19.91 Primary osteoarthritis, unspecified site; Z79.899 Other long term (current) drug therapy; Z87.891 Personal history of nicotine dependence; Z60.2 Problems related to living alone; Z97.4 Presence of external hearing-aid; Z85.118 Personal history of other malignant neoplasm of bronchus and lung; Z87.820 Personal history of traumatic brain injury; Z87.440 Personal history of urinary (tract) infections; Z92.21 Personal history of antineoplastic chemotherapy
CPT/HCPCS: 36415; 70450; 70496; 70498; 71045; 71046; 74177; 80048; 80053; 80061; 81000; 82962; 83605; 83690; 83735; 83880; 84484; 85007; 85025; 85027; 85379; 85610; 85730; 87040; 93005; 93041; 94640; 94760; 96361; 96365; 96367; 96375

== ENCOUNTER 2018-09-11 09:19 | Inpatient (IN) | payer MEDICARE, OTHER ==
[~2018-09-11] VITALS: Ht 177.8 cm; Wt 78.0 kg
[~2018-09-11 09:19] MED LIST changes: +DEXT15DR26
--- NOTE | 2018-09-11 10:44 | PM&R H&P / Post Admit Assess ---
History of Present Illness HPI/Chief Complaint Chief complaint: Debility HPI: This is a 77yoWM clinic Pt of Dr. Paredes who presented 5 days ago from the ER with pneumonia dysphagia and dehydration. He was having nausea and vomiting and diarrhea, became very dehydrated and very debilitated and presented to the ER placed on aggressive IV fluids and antibiotics for pneumonia and at this current time, Pt is feeling much better but very weak. He does live alone and is very active in his community serving on the [place] and volunteering at the [employer]. His prior level of functioning was independent with ADLs and ambulation. He was generalized very weak in all extremities and a major fall risk. The goal will be to return back home at the completion of inpatient rehab course. Source: patient Exam Limitations: no limitations Date Seen 09/11/18 Time Seen by a Provider: 11:00 Attending Physician Amanda Olivarez,David DENT Referring Physician Date of Admission Home Medications & Allergies Home Medications Reviewed patient Home Medication Reconciliation performed by pharmacy medication reconciliations reuse technician and/or nursing. Patients Allergies have been reviewed. 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) Alcohol Use: Past History Alcohol Beverage of Choice: Whiskey Smoking Status: Former Smoker Former Smoker, Quit: Apr 23, 1969 Type Used: Cigarettes 2nd Hand Smoke Exposure: No Recent Hopitalizations: No Immunizations Up To Date Date of Pneumonia Vaccine: Feb 04, 2016 Date of Influenza Vaccine: Jan 09, 2018 Seasonal Allergies Seasonal Allergies: Yes Past Medical History Surgeries: Eye Surgery, Orthopedic Respiratory: Pneumonia Currently Using CPAP: No Currently Using BIPAP: No Cardiac: Hypertension Neurological: Concussion, Neuropathy, Traumatic Brain Injury Genitourinary: Prostate Problems, UTI-Chronic Gastrointestinal: Gall Bladder Disease Musculoskeletal: Arthritis Hearing Impairment: Hard of Hearing, Hearing Aide Right, Deaf Cancer: Lung Did You Recieve Any Treatments: Yes What Type of Treatment Did You: Chemotherapy History of Blood Disorders: No Adverse Reaction to Blood Buitrago: No Family History No Pertinent Family Hx Review of Systems Constitutional: see HPI, malaise, weakness EENTM: no symptoms reported Respiratory: cough, dyspnea on exertion Cardiovascular: no symptoms reported Gastrointestinal: no symptoms reported Genitourinary: no symptoms reported Musculoskeletal: no symptoms reported Skin: no symptoms reported Psychiatric/Neurological: Weakness All Other Systems Reviewed Negative Unless Noted: Yes Physical Exam Exam Vital Signs Vital Signs Date Time Temp Pulse Resp B/P (MAP) Pulse Ox O2 Delivery O2 Flow Rate FiO2 09/11/18 17:04 98.2 84 18 137/65 (89) 94 Room Air Capillary Refill : General Appearance: No Apparent Distress, WD/WN, Chronically ill, Thin HEENT: PERRL/EOMI, TMs Normal, Normal ENT Inspection, Pharynx Normal, Moist Mucous Membranes Neck: Full Range of Motion, Normal Inspection, Non Tender, Supple Respiratory: Chest Non Tender, Lungs Clear, Normal Breath Sounds, No Accessory Muscle Use, No Respiratory Distress, Decreased Breath Sounds Cardiovascular: Regular Rate, Rhythm, No Edema, No Gallop, No JVD, No Murmur Gastrointestinal: Normal Bowel Sounds, No Organomegaly, No Pulsatile Mass, Non Tender, Soft Back: Normal Inspection, No CVA Tenderness, No Vertebral Tenderness Extremity: Normal Capillary Refill, Normal Inspection, Normal Range of Motion, Non Tender, No Calf Tenderness, No Pedal Edema Neurologic/Psychiatric: Alert, Oriented x3, No Motor/Sensory Deficits (generalized weakness all extremities), Normal Mood/Affect Skin: Normal Color, Warm/Dry Lymphatic: No Adenopathy Results Results/Procedures Labs Patient resulted labs reviewed. Assessment/Plan Assessment and Plan Assess & Plan/Chief Complaint Assessment: Debility Pneumonia Lung cancer hx HTN Neuropathy TBI hx Depression GERD Chronic pain Plan: IRF protocol Increase strengthening and safety for fall risk prevention Return home for independent living (1) Debility (2) TBI (traumatic brain injury) (3) Chronic pain (4) Essential (primary) hypertension (5) Lung cancer (6) Nausea vomiting and diarrhea Resolution Date/Time: 09/08/18 @ 10:30 (7) Pneumonia (8) Anemia (9) Elevated brain natriuretic peptide (BNP) level Post Admission Physician Asses Date seen by provider: September 11, 2018 Time seen by provider: 11:00 Admisison Dx: (1) Debility The preadmission screen agrees with the post admission assessment that the p atient is a good candidate for inpatient rehabilitation. The patient will have a comprehensive program of inpatient rehabilitation with a goal of maximizing level of functional independence prior to discharge home. The patient will have PT/OT ninety minutes per day, each discipline, five days a week for gait, strengthening, conditioning, balance, ADLs, any patient/family/caregiver training as necessary. Speech therapy to do cognitive assessment and treat as indicated. Rehabilitation nursing to assist with bowel, bladder, skin, wound care, medication administration, pain management. Novelty Twister Operator to assist with discharge planning, community reentry. SCD's for DVT prophylaxis. He appears to be well motivated to participate in three hours of therapy a day. He should be able to tolerate three hours of therapy a day from a medical standpoint. He should benefit from the three hours of therapy a day. He has a reasonable discharge plan, reasonable discharge rehabilitation goals and a supportive family. He has various comorbidities that need to be closely monitored with medications and treatments adjusted on a daily basis as needed. These include: see list Barriers to discharge for this patient who had been independent prior to this are for him to be modified independent to supervision for ADLs and mobility skills prior to discharge home, so as to lessen the burden of the caregivers. Risks for this patient include: 1. Fall 2. Fracture 3. DVT 4. Pulmonary embolism 5. Wound infection 6. Skin breakdown 7. Contractures 8. Poorly controlled pain 9. Urinary retention 10. UTI 11. Respiratory infection 12. Aspiration Estimated Length of Stay: 7 days Prognosis: Rehab prognosis appears good for goal of discharge home modified independent to supervision for ADLs and mobility skills. AMANDA OLIVAREZ DO September 11, 2018 10:44
--- NOTE | 2018-09-11 10:45 | NUR ---
Pt admitted to room 224, with an admitting diagnosis of Pneumonia, weakness, debility from 4th floor, via w/c, accompanied by PT. NOY KAISER JR introduced to surroundings, call light, bed controls, phone, TV, temperature control, lights, meal times, smoking policy, visitor policy, side rail policy, bathrooms and showers. Patient Rights provided to patient in the handbook. NOY KAISER JR verbalizes understanding that [facility] is not responsible for the loss or damage to any personal effects or valuables that are kept in the patients posession during their hospitalization. The following Patient Care Plans were discussed with the pt: Discharge Planning, Alteration in gas exchange/resp function, Impaired Mobility, Self Care Deficit, Potential for fall/injury. NOY KAISER JR verbalizes understanding of Interdisciplinary Patient Education. Patient and/or family were informed about the Rapid Response Team and its purpose. Patient received Patient Rights Booklet, which includes Privacy Act Statement and Data Collection Information Summary. Pt working w PT upon arrival to unit.
[2018-09-11 10:46] VITALS: BP 122/71
--- NOTE | 2018-09-11 11:26 | Physical Therapy Evaluation ---
PT Evaluation-General Medical Diagnosis Admission Date Medical Diagnosis: pneumonia Onset Date: September 07, 2018 Therapy Diagnosis Therapy Diagnosis: impaired mobility, strength, endurance Height/Weight Height (Feet): 5 Height (Inches): 8.00 Weight (Pounds): 180 Weight (Ounces): 0.0 Referral Physician: Amanda Sullivan DO Reason for Referral: Evaluation/Treatment Medical History Pertinent Medical History: Arthritis, Neuropathy Additional Medical History Past Medical History Surgeries: Eye Surgery, Orthopedic Respiratory: Pneumonia Currently Using CPAP: No Currently Using BIPAP: No Cardiac: Hypertension Neurological: Concussion, Neuropathy, Traumatic Brain Injury Genitourinary: Prostate Problems, UTI-Chronic Gastrointestinal: Gall Bladder Disease Musculoskeletal: Arthritis Hearing Impairment: Hard of Hearing, Hearing Aide Right, Deaf Cancer: Lung Did You Recieve Any Treatments: Yes What Type of Treatment Did You: Chemotherapy History of Blood Disorders: No Adverse Reaction to Blood Buitrago: No Current History Patient went to ER with nausea, vomiting, incontinent of stool Reviewed History: Yes Reviewed History: Yes Social History Home: Single Level Current Living Status: Alone Entry Into Home: [facility] Prior Level of Function Therapy Code Descriptions/Definitions Functional [place] Measure: 0=Not Assessed/NA 4=Minimal Assistance 1=Total Assistance 5=Supervision or Setup 2=Maximal Assistance 6=Modified [place] 3=Moderate Assistance 7=Complete [place] Therapy Quality Codes: 6 Independent with activity with or without an assistive device 5 Patient requires set up or clean up by helper. Patient completes activity by themselves 4 Supervision or touching assist (CGA). Carbon provide cues , steadying assist 3 The helper provides less than half the effort to complete the activity 2 The helper provides more than half the effort to complete the activity 1 Dependent. The helper does all the effort to complete an activity 7 Patient refused to complete or attempt activity 9 The patient did not perform the activity before the current illness or injury 88 Not attempted due to Medical conditions or safety concerns Functional Abilities and Goals: Independent: Patient completed the activities by him/herself, with or without an assistive device, with no assistance from a helper. Needed Some Help: Patient needed partial assistance from another person to complete activities. Dependent: A helper completed the activities for the patient. Unknown: Not Applicable: Bed Mobility: 6 Transfers (B,C,W/C) (FIM): 6 Gait: 6 Indoor Mobility (Ambulation): Independent Patient was using a 4-wheeled walker previously PT Evaluation-Current Subjective Patient in recliner pre tx, agrees to PT, has no complaints of pain currently but states that he usually has a lot of pain in his legs due to neuropathy. Pt/Family Goals to be independent at home Objective Patient Orientation: Person, Confused, Place, Situation Much less confusion today, he is oriented to person, place, and situation but still slight confusion. ROM/Strength ROM Lower Extremities WNL Strenght Lower Extremities right lower extremity (hip flexion 4/5, knee flexion 3+/5, knee extension 4+/5, dorsiflexion 4+/5), left lower extremity (hip flexion 4/5, knee flexion 4/5, knee extension 4+/5, dorsiflexion 4+/5) Neuromuscular (Tone, Coordination, Reflexes) NT Sensory Vision: Hearing: Functional Sensation Right Lower Extremit: Impaired Sensation Left Lower Extremity: Impaired Sensation Lower Extremities decreased light touch sensation in both feet Transfers Therapy Code Descriptions/Definitions Functional [place] Measure: 0=Not Assessed/NA 4=Minimal Assistance 1=Total Assistance 5=Supervision or Setup 2=Maximal Assistance 6=Modified [place] 3=Moderate Assistance 7=Complete [place] Therapy Quality Codes: 6 Independent with activity with or without an assistive device 5 Patient requires set up or clean up by helper. Patient completes activity by themselves 4 Supervision or touching assist (CGA). Carbon provide cues , steadying assist 3 The helper provides less than half the effort to complete the activity 2 The helper provides more than half the effort to complete the activity 1 Dependent. The helper does all the effort to complete an activity 7 Patient refused to complete or attempt activity 9 The patient did not perform the activity before the current illness or injury 88 Not attempted due to Medical conditions or safety concerns Transfers (B, C, W/C) (FIM): 4 Scootin Rollin Roll Left to Right (QC): 4 Supine to/from Sit: 5 Sit to/from Stand: 4 Sit to Lying (QC): 4 Lying to Sitting/Side of Bed(Q: 4 Sit to Stand (QC): 3 Chair/Dsc-pr-Dopdq Xfer(QC): 4 Car Transfer (QC): 3 Patient performs bed mobility with SBA, supine <-> sit with SBA, sit <-> stand with min assist, transfers with CGA, car transfer with min assist. Patient needs cues for hand placement and positioning with almost every transfer. Gait Does the Patient Walk?: Yes Mode of Locomotion: Walk Anticipated Mode of Locomotion: Walk Gait (FIM): 4 Walk 10 feet (QC): 4 Walk 50 ft with 2 Turns(QC): 4 Walk 150 ft (QC): 4 Walking 10ft/uneven surface-QC: 4 Distance: 150', 100', 20' Gait Level of Assist: 4 Gait Persons Needed: 1 Gait Assistive Device: FWW Comments/Gait Description Patient can ambulate 150' with a rolling walker with CGA (including 50' with at least 2 turns of 90 degrees and 10' over an uneven surface). Patient ambulates slowly but no LOB, he has slightly uncoordinated movement of right foot with stepping. Stairs Stairs (FIM): 1 #of Steps: 1 Level of Assist: 4 1 Step (curb) (QC): 4 Assistive Device: Walker Patient can go up and down 1 step using a rolling walker with CGA. He needs cues for safety and positioning. Balance Sitting Static: Normal Sitting Dynamic: Normal Standing Static: Good Standing Dynamic: Good Treatment NuStep for 10 min level 5 Assessment/Needs Patient has impaired mobility, strength, endurance. He has slight confusion and needs cues for safety, direction, and positioning during mobility. Patient in recliner post tx with nurse call, phone, tray, chair alarm. Has OT right after PT. Rehab Potential: Fair PT Short Term Goals Short Term Goals Time Frame: September 18, 2018 Transfers (B,C,W/C) (FIM): 5 Gait (FIM): 5 Gait Distance Comment: 200' Gait Level of Assist: 5 Gait Assistive Device: FWW PT Shellacker Goals Shellacker Goals PT Snf Goals Time Frame: Oct 02, 2018 Transfers (B,C,W/C) (FIM): 6 Sit to Lying (QC): 6 Lying-Sitting on Side/Bed(QC): 6 Sit to Stand (QC): 6 Rollin Roll Left to Right (QC): 6 Chair/Ust-ox-Ycqyx Xfer(QC): 6 Car Transfer (QC): 6 Gait (FIM): 6 Distance: 400' Walk 10 feet (QC): 6 Walk 10ft-Uneven Surface(QC): 6 Walk 50ft with 2 Turns (QC): 6 Walk 150 ft (QC): 6 Gait Level of Assist: 6 Gait Assistive Device: FWW Stairs (FIM): 2 # of Steps: 4 1 Step (curb) (QC): 4 4 Steps (QC): 4 Stairs Level Of Assist: 5 PT Plan Problem List Problem List: Activity Tolerance, Functional Strength, Safety, Balance, Gait, Transfer, Bed Mobility, ROM Treatment/Plan Treatment Plan: Continue Plan of Care Treatment Plan: Bed Mobility, Education, Functional Activity Herrera, Functional Strength, Group Therapy, Gait, Safety, Therapeutic Exercise, Transfers Treatment Duration: Oct 02, 2018 Frequency: At least 5 of 7 days/Wk (IRF) Estimated Hrs Per Day: 1.5 hours per day Patient and/or Family Agrees t: Yes Safety Risks/Education Patient Education: Gait Training, Transfer Techniques, Steps, Correct Positioning, Safety Issues Teaching Recipient: Patient Teaching Methods: Demonstration, Discussion Response to Teaching: Reinforcement Needed Discharge Recommendations Plan Patient will perform bed mobility and transfer training, balance and endurance training, functional strengthening, stair training, gait training, and education, to improve functional mobility and independence at home. Therapy D/C Recommendations: Home w/ Family Support, Long Term (TCU/NH) Time/GCodes Time In: 1040 Time Out: 1115 Total Billed Treatment Time: 35 Total Billed Treatment 1 visit KYLAH 20' GT 15' ZORA CORDERO PT September 11, 2018 11:26
[2018-09-11] MEDS ORDERED: IBUP-2055 PO (11:38)
[2018-09-11] MEDS ORDERED: NYST15CR TOP (11:38)
[2018-09-11] MEDS ORDERED: MINE3.5O2 OU (11:38)
[2018-09-11] MEDS ORDERED: OMEP20CA12 PO (11:38)
[2018-09-11] MEDS ORDERED: SENN-145 PO (11:38)
[2018-09-11] MEDS ORDERED: OXYC-529 PO (11:38)
[2018-09-11] MEDS ORDERED: TRIA80OI TOP (11:38)
[2018-09-11] MEDS ORDERED: FENT1PAT60 TD (11:38)
[2018-09-11] MEDS ORDERED: TAMS0.4C98 PO (11:38)
--- NOTE | 2018-09-11 11:38 | NUR ---
MED REC WAS COMPLETED UPON ADMISSION TO THE FLOOR PRIOR TO MED REC TECH AVAILABILITY. WHEN THE PATIENT DISCHARGED TO REHAB NO CHANGES WERE MADE. I UPDATED SOME MEDICATIONS WITH WHAT HAS BEEN FILLED RECENTLY ACCORDING TO THE EXT MED HX AND REMOVED SOME SHORT TERM MEDICATIONS THAT LOOK TO BE FINISHED. I DID NOT RE-INTERVIEW THE PATIENT AT THIS TIME.
--- OUTSIDE RECORDS SUMMARY | 2018-09-11 12:19 | XMS REPORT | Continuity of Care Document ---
Author Organization Unknown Address Unknown Allergies Active Description Code Type Severity Reaction Onset Reported/Identified Relationship to Patient Clinical Status Yes No Known Medication Allergies Drug N/A N/A Yes baclofen [id number] Drug Allergy Unknown N/A 06/14/2018 Yes metoclopramide [id number] Drug Allergy Unknown N/A 06/14/2018 Medications There [...] ABNORMAL LEVELS OF OTHER SERUM ENZYMES 06/20/2018 KRISITNA NUNEZ MD Ot [id number] UNSP INTRACRANIAL INJURY [...] Procedures Code Description Performed By Performed On [id number] DRAINAGE OF LEFT LOWER LUNG LOBE, ENDO, 06/19/2018 [id number] EXTRACTION OF LEFT LOWER LUNG LOBE, ENDO 06/19/2018 Results Test Result Range Blood lactic acid measurement (moles/volume) - 06/14/18 20:35 Blood lactic acid measurement (moles/volume) 1.00 mmol/L 0.50- 2.00 Bacterial blood culture - 06/14/18 20:35 Bacterial blood culture NG [facility] Complete blood count (CBC) with automated white [...] - 06/20/18 04:30 Magnesium 1.8 mg/dL 1.8-2.4 Complete blood count (CBC) with automated white blood cell (WBC) differential - 09/06/18 22:40 Blood leukocytes automated count (number/volume) 14.0 10*3/uL 4.3-11.0 Blood erythrocytes automated count (number/volume) 3.91 10*6/uL 4.35-5.85 Venous blood hemoglobin measurement (mass/volume) 11.4 g/dL 13.3-17.7 Blood hematocrit (volume fraction) 35 % 40-54 Automated erythrocyte mean corpuscular volume 88 [foz_us] 80-99 Automated erythrocyte mean corpuscular hemoglobin (mass per erythrocyte) 29 pg 25-34 Automated erythrocyte mean corpuscular hemoglobin concentration measurement (mass/volume) 33 g/dL 32-36 Automated erythrocyte distribution width ratio 13.6 % 10.0- 14.5 Automated blood platelet count (count/volume) 187 10*3/uL 130-400 Automated blood platelet mean volume measurement 10.5 [foz_us] 7.4-10.4 Automated blood neutrophils/100 leukocytes 85 % 42-75 Automated blood lymphocytes/100 leukocytes 8 % 12-44 Blood monocytes/100 leukocytes 6 % 0-12 Automated blood eosinophils/100 leukocytes 1 % 0-10 Automated blood basophils/100 leukocytes 0 % 0-10 Blood neutrophils automated count (number/volume) 11.9 10*3 1.8-7.8 Blood lymphocytes automated count (number/volume) 1.2 10*3 1.0-4.0 Blood monocytes automated count (number/volume) 0.8 10*3 0.0- 1.0 Automated eosinophil count 0.1 10*3/uL 0.0-0.3 Automated blood basophil count (count/volume) 0.0 10*3/uL 0.0-0.1 Blood manual differential performed detection - 09/06/18 22:40 Blood monocytes/100 leukocytes 6 % NRG Manual blood segmented neutrophils/100 leukocytes 86 % NRG Blood band neutrophils/100 leukocytes 0 % NRG Manual blood lymphocytes/100 leukocytes 6 % NRG Manual eosinophils/100 leukocytes in nose 1 % NRG Manual blood basophils/100 leukocytes 0 % NRG Blood lymphocytes variant/100 leukocytes 1 % NRG Blood erythrocyte morphology finding identification NORMAL NRG PT panel in platelet poor plasma by coagulation assay - 09/06/18 22:40 Prothrombin time (PT) in platelet poor plasma by coagulation assay 14.4 s 12.2-14.7 INR in platelet poor plasma or blood by coagulation assay 1.1 0.8-1.4 Activated partial thromboplastin time (aPTT) in platelet poor plasma bycoagulation assay - 09/06/18 22:40 Activated partial thromboplastin time (aPTT) in platelet poor plasma bycoagulation assay 36 s 24-35 Fibrin D-dimer FEU measurement in platelet poor plasma (mass/volume) - 09/06/18 22:40 Fibrin D-dimer FEU measurement in platelet poor plasma (mass/volume) 2.40 ug/mL 0.00-0.49 Comprehensive metabolic panel - 09/06/18 22:40 Serum or plasma sodium measurement (moles/volume) 138 mmol/L 135-145 Serum or plasma potassium measurement (moles/volume) 2.8 mmol/L 3.6-5.0 Serum or plasma chloride measurement (moles/volume) 105 mmol/L 98-107 Carbon dioxide 21 mmol/L 21-32 Serum or plasma anion gap determination (moles/volume) 12 mmol/L 5-14 Serum or plasma urea nitrogen measurement (mass/volume) 13 mg/dL 7-18 Serum or plasma creatinine measurement (mass/volume) 0.69 mg/dL 0.60-1.30 Serum or plasma urea nitrogen/creatinine mass ratio 19 NRG Serum or plasma creatinine measurement with calculation of estimated glomerular filtration rate > NRG Serum or plasma glucose measurement (mass/volume) 107 mg/dL 70-105 Serum or plasma calcium measurement (mass/volume) 8.9 mg/dL 8.5-10.1 Serum or plasma total bilirubin measurement (mass/volume) 1.0 mg/dL 0.1-1.0 Serum or plasma alkaline phosphatase measurement (enzymatic activity/volume) 120 U/L 40-136 Serum or plasma aspartate aminotransferase measurement (enzymatic activity/volume) 62 U/L 5-34 Serum or plasma alanine aminotransferase measurement (enzymatic activity/volume) 95 U/L 0-55 Serum or plasma protein measurement (mass/volume) 6.7 g/dL 6.4-8.2 Serum or plasma albumin measurement (mass/volume) 3.5 g/dL 3.2-4.5 CALCIUM CORRECTED 9.3 mg/dL 8.5-10.1 Serum or plasma troponin i.cardiac measurement (mass/volume) - 09/06/18 22:40 Serum or plasma troponin i.cardiac measurement (mass/volume) < ng/mL <0.028 Magnesium - 09/06/18 22:40 Magnesium 1.9 mg/dL 1.8-2.4 Blood lactic acid measurement (moles/volume) - 09/06/18 22:40 Blood lactic acid measurement (moles/volume) 0.77 mmol/L 0.50- 2.00 Lipase - 09/06/18 22:40 Lipase < U/L 8-78 Bacterial blood culture - 09/06/18 22:40 QUANTITY OF GROWTH Isolated NRG Bacterial blood culture [id number] NRG Capillary blood glucose measurement by glucometer (mass/volume) - 09/06/18 22:46 Capillary blood glucose measurement by glucometer (mass/volume) 107 mg/dL 70-110 Bacterial blood culture - 09/07/18 00:22 Bacterial blood culture NG NRG Complete urinalysis with reflex to culture - 09/07/18 01:00 Urine color determination YELLOW NRG Urine clarity determination CLEAR NRG Urine pH measurement by test strip 8 5-9 Specific gravity of urine by test strip 1.010 1.016-1.022 Urine protein assay by test strip, semi-quantitative 1+ NEGATIVE Urine glucose detection by automated test strip NEGATIVE NEGATIVE Erythrocytes detection in urine sediment by light microscopy 1+ NEGATIVE Urine ketones detection by automated test strip 3+ NEGATIVE Urine nitrite detection by test strip NEGATIVE NEGATIVE Urine total bilirubin detection by test strip NEGATIVE NEGATIVE Urine urobilinogen measurement by automated test strip (mass/volume) NORMAL NORMAL Urine leukocyte esterase detection by dipstick NEGATIVE NEGATIVE Automated urine sediment erythrocyte count by microscopy (number/high power field) [HPF] NRG Automated urine sediment leukocyte count by microscopy (number/high power field) [HPF] NRG Bacteria detection in urine sediment by light microscopy FEW NRG Crystals detection in urine sediment by light microscopy NONE NRG Casts detection in urine sediment by light microscopy NONE NRG Mucus detection in urine sediment by light microscopy NEGATIVE NRG Complete urinalysis with reflex to culture NO NRG Complete blood count (CBC) with automated white blood cell (WBC) differential - 09/07/18 05:41 Blood leukocytes automated count (number/volume) 12.8 10*3/uL 4.3-11.0 Blood erythrocytes automated count (number/volume) 3.92 10*6/uL 4.35-5.85 Venous blood hemoglobin measurement (mass/volume) 11.2 g/dL 13.3-17.7 Blood hematocrit (volume fraction) 34 % 40-54 Automated erythrocyte mean corpuscular volume 88 [foz_us] 80-99 Automated erythrocyte mean corpuscular hemoglobin (mass per erythrocyte) 29 pg 25-34 Automated erythrocyte mean corpuscular hemoglobin concentration measurement (mass/volume) 33 g/dL 32-36 Automated erythrocyte distribution width ratio 13.6 % 10.0- 14.5 Automated blood platelet count (count/volume) 175 10*3/uL 130-400 Automated blood platelet mean volume measurement 10.8 [foz_us] 7.4-10.4 Automated blood neutrophils/100 leukocytes 77 % 42-75 Automated blood lymphocytes/100 leukocytes 15 % 12-44 Blood monocytes/100 leukocytes 8 % 0-12 Automated blood eosinophils/100 leukocytes 1 % 0-10 Automated blood basophils/100 leukocytes 0 % 0-10 Blood neutrophils automated count (number/volume) 9.8 10*3 1.8-7.8 Blood lymphocytes automated count (number/volume) 1.9 10*3 1.0-4.0 Blood monocytes automated count (number/volume) 1.0 10*3 0.0- 1.0 Automated eosinophil count 0.1 10*3/uL 0.0-0.3 Automated blood basophil count (count/volume) 0.0 10*3/uL 0.0-0.1 Whole blood basic metabolic panel - 09/07/18 05:41 Serum or plasma sodium measurement (moles/volume) 137 mmol/L 135-145 Serum or plasma potassium measurement (moles/volume) 2.5 mmol/L 3.6-5.0 Serum or plasma chloride measurement (moles/volume) 106 mmol/L 98-107 Carbon dioxide 19 mmol/L 21-32 Serum or plasma anion gap determination (moles/volume) 12 mmol/L 5-14 Serum or plasma urea nitrogen measurement (mass/volume) 11 mg/dL 7-18 Serum or plasma creatinine measurement (mass/volume) 0.67 mg/dL 0.60-1.30 Serum or plasma urea nitrogen/creatinine mass ratio 16 NRG Serum or plasma creatinine measurement with calculation of estimated glomerular filtration rate > NRG Serum or plasma glucose measurement (mass/volume) 93 mg/dL 70-105 Serum or plasma calcium measurement (mass/volume) 8.9 mg/dL 8.5-10.1 Lipid 1996 panel - 09/07/18 05:41 Serum or plasma triglyceride measurement (mass/volume) 63 mg/dL <150 Serum or plasma cholesterol measurement (mass/volume) 131 mg/dL < 200 Serum or plasma cholesterol in HDL measurement (mass/volume) 56 mg/dL 40-60 Cholesterol in LDL [mass/volume] in serum or plasma by direct assay 60 mg/dL 1-129 Serum or plasma cholesterol in VLDL measurement (mass/volume) 13 mg/dL 5-40 Complete blood count (CBC) with automated white blood cell (WBC) differential - 09/08/18 05:22 Blood leukocytes automated count (number/volume) 8.5 10*3/uL 4.3-11.0 Blood erythrocytes automated count (number/volume) 3.73 10*6/uL 4.35-5.85 Venous blood hemoglobin measurement (mass/volume) 11.0 g/dL 13.3-17.7 Blood hematocrit (volume fraction) 33 % 40-54 Automated erythrocyte mean corpuscular volume 88 [foz_us] 80-99 Automated erythrocyte mean corpuscular hemoglobin (mass per erythrocyte) 29 pg 25-34 Automated erythrocyte mean corpuscular hemoglobin concentration measurement (mass/volume) 34 g/dL 32-36 Automated erythrocyte distribution width ratio 13.9 % 10.0- 14.5 Automated blood platelet count (count/volume) 188 10*3/uL 130-400 Automated blood platelet mean volume measurement 10.9 [foz_us] 7.4-10.4 Automated blood neutrophils/100 leukocytes 76 % 42-75 Automated blood lymphocytes/100 leukocytes 12 % 12-44 Blood monocytes/100 leukocytes 8 % 0-12 Automated blood eosinophils/100 leukocytes 4 % 0-10 Automated blood basophils/100 leukocytes 0 % 0-10 Blood neutrophils automated count (number/volume) 6.4 10*3 1.8-7.8 Blood lymphocytes automated count (number/volume) 1.0 10*3 1.0-4.0 Blood monocytes automated count (number/volume) 0.7 10*3 0.0- 1.0 Automated eosinophil count 0.3 10*3/uL 0.0-0.3 Automated blood basophil count (count/volume) 0.0 10*3/uL 0.0-0.1 Comprehensive metabolic panel - 09/08/18 05:22 Serum or plasma sodium measurement (moles/volume) 138 mmol/L 135-145 Serum or plasma potassium measurement (moles/volume) 3.5 mmol/L 3.6-5.0 Serum or plasma chloride measurement (moles/volume) 110 mmol/L 98-107 Carbon dioxide 19 mmol/L 21-32 Serum or plasma anion gap determination (moles/volume) 9 mmol/L 5-14 Serum or plasma urea nitrogen measurement (mass/volume) 9 mg/dL 7-18 Serum or plasma creatinine measurement (mass/volume) 0.67 mg/dL 0.60-1.30 Serum or plasma urea nitrogen/creatinine mass ratio 13 NRG Serum or plasma creatinine measurement with calculation of estimated glomerular filtration rate > NRG Serum or plasma glucose measurement (mass/volume) 87 mg/dL 70-105 Serum or plasma calcium measurement (mass/volume) 8.4 mg/dL 8.5-10.1 Serum or plasma total bilirubin measurement (mass/volume) 1.1 mg/dL 0.1-1.0 Serum or plasma alkaline phosphatase measurement (enzymatic activity/volume) 118 U/L 40-136 Serum or plasma aspartate aminotransferase measurement (enzymatic activity/volume) 61 U/L 5-34 Serum or plasma alanine aminotransferase measurement (enzymatic activity/volume) 70 U/L 0-55 Serum or plasma protein measurement (mass/volume) 6.0 g/dL 6.4-8.2 Serum or plasma albumin measurement (mass/volume) 3.1 g/dL 3.2-4.5 CALCIUM CORRECTED 9.1 mg/dL 8.5-10.1 Complete blood count (CBC) with automated white blood cell (WBC) differential - 09/09/18 04:55 Blood leukocytes automated count (number/volume) 6.6 10*3/uL 4.3-11.0 Blood erythrocytes automated count (number/volume) 3.72 10*6/uL 4.35-5.85 Venous blood hemoglobin measurement (mass/volume) 10.6 g/dL 13.3-17.7 Blood hematocrit (volume fraction) 33 % 40-54 Automated erythrocyte mean corpuscular volume 89 [foz_us] 80-99 Automated erythrocyte mean corpuscular hemoglobin (mass per erythrocyte) 29 pg 25-34 Automated erythrocyte mean corpuscular hemoglobin concentration measurement (mass/volume) 32 g/dL 32-36 Automated erythrocyte distribution width ratio 13.7 % 10.0- 14.5 Automated blood platelet count (count/volume) 217 10*3/uL 130-400 Automated blood platelet mean volume measurement 10.7 [foz_us] 7.4-10.4 Automated blood neutrophils/100 leukocytes 63 % 42-75 Automated blood lymphocytes/100 leukocytes 17 % 12-44 Blood monocytes/100 leukocytes 10 % 0-12 Automated blood eosinophils/100 leukocytes 10 % 0-10 Automated blood basophils/100 leukocytes 0 % 0-10 Blood neutrophils automated count (number/volume) 4.1 10*3 1.8-7.8 Blood lymphocytes automated count (number/volume) 1.1 10*3 1.0-4.0 Blood monocytes automated count (number/volume) 0.7 10*3 0.0- 1.0 Automated eosinophil count 0.7 10*3/uL 0.0-0.3 Automated blood basophil count (count/volume) 0.0 10*3/uL 0.0-0.1 Comprehensive metabolic panel - 09/09/18 04:55 Serum or plasma sodium measurement (moles/volume) 141 mmol/L 135-145 Serum or plasma potassium measurement (moles/volume) 4.0 mmol/L 3.6-5.0 Serum or plasma chloride measurement (moles/volume) 111 mmol/L 98-107 Carbon dioxide 20 mmol/L 21-32 Serum or plasma anion gap determination (moles/volume) 10 mmol/L 5-14 Serum or plasma urea nitrogen measurement (mass/volume) 10 mg/dL 7-18 Serum or plasma creatinine measurement (mass/volume) 0.73 mg/dL 0.60-1.30 Serum or plasma urea nitrogen/creatinine mass ratio 14 NRG Serum or plasma creatinine measurement with calculation of estimated glomerular filtration rate > NRG Serum or plasma glucose measurement (mass/volume) 93 mg/dL 70-105 Serum or plasma calcium measurement (mass/volume) 8.6 mg/dL 8.5-10.1 Serum or plasma total bilirubin measurement (mass/volume) 0.5 mg/dL 0.1-1.0 Serum or plasma alkaline phosphatase measurement (enzymatic activity/volume) 110 U/L 40-136 Serum or plasma aspartate aminotransferase measurement (enzymatic activity/volume) 30 U/L 5-34 Serum or plasma alanine aminotransferase measurement (enzymatic activity/volume) 51 U/L 0-55 Serum or plasma protein measurement (mass/volume) 5.8 g/dL 6.4-8.2 Serum or plasma albumin measurement (mass/volume) 3.0 g/dL 3.2-4.5 CALCIUM CORRECTED 9.4 mg/dL 8.5-10.1 Magnesium - 09/09/18 04:55 Magnesium 1.7 mg/dL 1.8-2.4 Serum or plasma lithium measurement (moles/volume) - 09/09/18 04:55 BNP level 219.5 pg/mL <100.0 Encounters ACCT No. Visit Date/Time Discharge Status Pt. Type Provider Facility Loc./Unit Complaint [id number] 06/05/2018 11:36:00 ACT Unknown Zack Batista MD [email or web address] 12/05/2016 11:41:08 ACT Document Registration [id number] 06/15/2018 00:51:00 06/20/2018 11:35:00 DIS Inpatient KRISTINA NUNEZ MD [facility] 4TH PNEUMONIA [id number] 09/07/2018 01:26:00 ACT Inpatient KRISTINA NUNEZ MD [facility] 4TH PNEUMONIA,DYSPHASIA,HYPOKALEMIA,N/V/D,CAROTID [id number] 07/18/2016 09:26:49 ACT BRAULIO CALLE [facility]
--- NOTE | 2018-09-11 13:59 | Occupational Therapy Eval ---
OT Evaluation-General/PLF Medical Diagnosis Admission Date September 11, 2018 at 10:45 Medical Diagnosis: pneumonia Onset Date: September 07, 2018 Therapy Diagnosis Therapy Diagnosis: Weakness Height/Weight Height (Feet): 5 Height (Inches): 8.00 Weight (Pounds): 180 Weight (Ounces): 0.0 Weight Bear Status Weight Bearing Restriction: Weight Bearing/Tolerated Referral Physician: Amanda Sullivan DO Referral Reason: Activity Tolerance, Self Care, Evaluation/Treatment, S trengthening/ROM Medical History Pertinent Medical History: Arthritis, Neuropathy Reviewed History: Yes Social History Home: Single Level Current Living Status: Alone Entry Into Home: Ramp ADL-Prior Level of Function Therapy Code Descriptions/Definitions Functional [place] Measure: 0=Not Assessed/NA 4=Minimal Assistance 1=Total Assistance 5=Supervision or Setup 2=Maximal Assistance 6=Modified [place] 3=Moderate Assistance 7=Complete [place] Therapy Quality Codes: 6 Independent with activity with or without an assistive device 5 Patient requires set up or clean up by helper. Patient completes activity by themselves 4 Supervision or touching assist (CGA). [place] provide cues , steadying assist 3 The helper provides less than half the effort to complete the activity 2 The helper provides more than half the effort to complete the activity 1 Dependent. The helper does all the effort to complete an activity 7 Patient refused to complete or attempt activity 9 The patient did not perform the activity before the current illness or injury 88 Not attempted due to Medical conditions or safety concerns Functional Abilities and Goals: Independent: Patient completed the activities by him/herself, with or without an assistive device, with no assistance from a helper. Needed Some Help: Patient needed partial assistance from another person to complete activities. Dependent: A helper completed the activities for the patient. Unknown: Not Applicable: ADL PLOF Comments Pt reports that he was fully independent with daily tasks at home. Pt.uses a cane for mobility. Self Care: Independent Functional Cognition: Unknown DME/Equipment: Bath Chair, Grab Bars, Shower DME/Equipment Comments Pt. has walkers and wheelchairs at home, but does not use these. 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 Drive Self: Yes (per pt.) OT Current Status Subjective No pain reported. Appearance Pt. up in chair. Agreeable to treatment. Mental Status/Objective Patient Orientation: Person, Place Current Dentures/Partials: Yes Hand Dominance: Right Upper Extremity ROM WFL- pt. does wear a pain patch on right shoulder for previous injury, but is unable to articulate why. ADL-Treatment Grooming (FIM): 5 (SBA to brush dentures and hair.) Oral Hygiene (QC): 4 Bathing (FIM): 4 (CGA in stance for balance while washing all parts. Pt. declines showering but agrees to sponge bathe.) Shower/Bathe Self (QC): 4 Upper Body Dressing (FIM): 5 Upper Body Dressing (QC): 4 Lower Body Dressing (FIM): 4 Lower Body Dressing (QC): 4 On/Off Footwear (QC): 4 Transfers (B, C, W/C) (FIM): 4 (CGA in stance for balance.) Other Treatments Pt. is agreeable to work with OT. Pt. is fearful of getting pain patch on shoulder wet, so declines showering. Will check with nursing about this. Did sponge bathe in room. Pt. up in chair after ADLs. Chair alarm in place after treatment session. All needs met. Education OT Patient Education: Correct positioning, Modified ADL techniques, Progress toward Goal/Update tx plan, Purpose of tx/functional activities, Reviewed precautions, Rehab process, Transfer techniques Teaching Recipient: Patient Teaching Methods: Demonstration, Discussion Response to Teaching: Verbalize Understanding, Return Demonstration OT Short Term Goals Short Term Goals Transfers (B,C,W/C) (FIM): 5 1=Demonstrate adherence to instructed precautions during ADL tasks. 2=Patient will verbalize/demonstrate understanding of assistive devices/modifications for ADL. 3=Patient will improve strength/tolerance for activity to enable patient to perform ADL's. OT Cnp Goals Jail Goals Time Frame: Sep 25, 2018 Eating (FIM): 6 Eating (QC): 6 Groomin Oral Hygiene (QC): 6 Bathing(FIM): 5 Shower/Bathe Self (QC): 6 Upper Body Dressing(FIM): 6 Upper Body Dressing (QC): 6 Lower Body Dressing(FIM): 6 Lower Body Dressing (QC): 6 On/Off Footwear (QC): 6 Toileting(FIM): 6 Toileting Hygiene (QC): 6 Transfers (B,C,W/C) (FIM): 6 Toilet/Commode Transfer(FIM): 6 Toilet/Commode Transfer (QC): 6 Shower Transfer(FIM): 5 Additional Goals: 1-Demonstrate ADL Tasks, 2-Verbalize Understanding, 3-ImproveStrength/[place] 1=Demonstrate adherence to instructed precautions during ADL tasks. 2=Patient will verbalize/demonstrate understanding of assistive devices/modifications for ADL. 3=Patient will improve strength/tolerance for activity to enable patient to perform ADL's. OT Education/Plan Problem List/Assessment Assessment: Decreased Activ Tolerance, Decreased Safety Aware, Dependent Transfers, Impaired Cognition, Impaired Funct Balance, Impaired I ADL's, Impaired Self-Care Skills Discharge Recommendations Plan/Recommendations: Continue POC Therapy D/C Recommendations: Home w/ Family Support, Occupational Therapy Home Care Treatment Plan/Plan of Care Treatment,Training & Education: Yes Patient would benefit from OT for education, treatment and training to promote independence in ADL's, mobility, safety and/or upper extremity function for ADL's. Plan of Care: ADL Retraining, Functional Mobility, Group Exercise/Act as Ind, UE Funct Exercise/Act Treatment Duration: Sep 25, 2018 Frequency: At least 5 of 7 days/Wk (IRF) Estimated Hrs Per Day: 1.5 hours per day Agreement: Yes Rehab Potential: Good Time/GCodes Start Time: 11:15 Stop Time: 12:15 Total Time Billed (hr/min): 60 Billed Treatment Time 1, EVM x 15minutes, ADL x 45minutes MARILIN ESCALANTE OT September 11, 2018 13:59
--- NOTE | 2018-09-11 14:34 | Therapy Group Daily Note ---
Therapy Daily Group Note Patient Education Topic Other List Below (TRF techniques, bed , chair, car , tub) Session Ratio (pt:therapist): 4:1 Goal of Session: Safety with Transfers (bed, chair , car, tub) Goal Met for this Session: Yes Pt Benefit of Group: Contributions to Others, F/U Use of Strategies @Home, Increased Functional Safety, Increased Functional Strength, Recognition of Peers, Socialization Other/Notes Pt. participated group PT OT session. Pt. came went utilizing FWW and CGA. Pt. shared his name and home town and what he is most proud of ( group magic question). Education and demonstration of bed TRFs: pushing up in bed, rolling, supine to side to sit to stand to SPT to chair all demonstrated step by step. TRF disc as well as slide board were demonstrated as well. CAR simulator was used to demonstrate car TRFs with safe technique . TUB bench TRFs also demonstrated and all bathing safety techniques discussed. Pts were all friendly,open and shared their personal experiences on all topics. Pt. to room after, assisted to recliner with alarm and call breaux insitu. Start Time: 13:00 Stop Time: 14:10 Total Billed Treatment Time: 70 Total Billed Treatment 1,GRP KYLER SOTELO [employer] WORK[employer] September 11, 2018 14:34
[2018-09-11] MEDS ORDERED: SENNA W/DOCUSATE (SENOKOT S) TABLET PO PRN (15:00)
[2018-09-11] MEDS ORDERED: RT-ALBUTEROL/IPRATROPIUM 3 ML (DUONEB) VIAL INH PRN (15:00)
[2018-09-11] MEDS ORDERED: ONDANSETRON 4 MG (ZOFRAN) ORAL DISSOLVE TAB PO PRN (15:00)
[2018-09-11] MEDS ORDERED: PATIENT MAY USE OWN MED,SINGLE MED PO SCH (15:00)
[2018-09-11] MEDS ORDERED: ONDANSETRON 4 MG/2 ML (SDV) Z0FRAN IVP PRN (15:00)
[2018-09-11] MEDS ORDERED: RT-ALBUTEROL SULF 2.5 MG/3 ML PRE-MIX VIAL INH PRN (15:00)
--- NOTE | 2018-09-11 15:09 | ST Cognitive Linguistic Eval ---
Speech Evaluation-General Medical Diagnosis pneumonia Onset Date: September 07, 2018 Therapy Diagnosis Therapy Diagnosis: Cognitive-communication Referral Referring Physician: Medical History Pertinent Medical History: Arthritis, Neuropathy Reviewed History: Yes Social History Current Living Status: Alone Speech PLF-Current Status Prior Level of Function The patient lives alone. Prior to being hospitalized he was independent for most of his daily needs. Subjective The patient was pleasant and cooperative with the cognitive assessment. Language Eval: Auditory Comprehends Simple Yes/No Ques: Functional Indent/Objects Multiple [place]: Functional Ident/Pics in Multiple [place]: Functional Follows 1-Step Commands: Mild Follows Complex Directions: Moderate Follows General Conversations: Functional Language Eval: Verbal Language Completes Spontaneous Greeting: Functional Produces Auto, Serial Info: Functional Imitates Simple Words/Phrases: Functional Word Finding: Functional Requests Basic Needs: Functional States Basic Personal Info: Functional Expresses Complex Ideas: Moderate Objective Cognitive Domain Attention: WNL Memory: Mild Problem Solving: Moderate Executive Functions: Moderate Visuospatial Skills: Moderate Composite Severity Rating: Moderate Clock Drawing Severity Rating: Mild Objective Formal/Standardized Tests [facility] Status ([facility]) Results 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 23/30 Oral Motor/Speech Production Within functional limits Impression The patient is a pleasant 77 year old man who was admitted to the ARU s/p hospitalization for pneumonia. The patient was cooperative with the evaluation process ([facility]). He scored a 23/30 which places him in a mild to moderate level of cognitive decline. The patient will receive skilled ST with focus on improving his safety and independence. Communication/Social Cognition Comprehension: 5 Expression: 5 Social Interaction: 6 Problem Solvin Memory: 4 Speech Patient Assess Expression of Ideas/Wants: Exhibits (3) Understanding Verbal Content: Usually Understands (3) Brief Interview-Mental Status: Yes Repetition of Three Words: Three (3) Temporal Orientation: Year: Correct (3) Temporal Orientation: Month: Accurate within 5 days(2) Temporal Orientation: Day: Correct (1) Recall : Wear to say "Sock": Yes,after cueing (1) Recall : Color: Yes, after cueing (1) Recall : Bed: Yes,after cueing (1) Memory/Recall Ability: Current season, That he or she is in a hsp/hsp unit Speech Short Term Goals Short Term Goals Short Term Goals 1) The patient will complete memory tasks related to himself and daily needs with 90% or greater given minimal verbal cues. 12 The patient will complete problem solving tasks related to himself and daily needs with 90% or greater given minimal verbal cues. Speech Mcfp Goals [employer] Kil[employer] Operator Goals The patient will improve his cognitive function in order to return home safely. Speech-Plan Patient/Family Goals Patient/Family Goals: The patient plans on returning home post rehab. Treatment Plan Speech Therapy Treatment Plan: Continue Plan of Care The patient will receive skilled ST services for cognitive function. Treatment Duration: September 20, 2018 Frequency: 5 times per week Estimated Hrs Per Day: .5 hour per day Rehab Potential: Good Barriers to Learning: Cognitive deficits Pt/Family Agrees to Plan: Yes Safety Risks/Education Teaching Recipient: Patient Teaching Methods: Discussion Response to Teaching: Verbalize Understanding Education Topics Provided: Safety within his room, procedures for using the call light as needed, calling in his meals Time Speech Therapy Time In: 14:15 Speech Therapy Time Out: 14:30 Total Billed Time: 15 Billed Treatment Time 1, AMARISNDLIEN Bocanegra September 11, 2018 15:09
[2018-09-11] MEDS ORDERED: ARTIFICIAL TEARS OINT (LACRI-LUBE) 3.5 GM TUBE OU PRN (16:15)
[2018-09-11 17:04] VITALS: BP 137/65
[2018-09-11] MEDS: ARTIFICAL TEARS 0.4 ML UNIT DOSE (REFRESH PLUS) OU PRN (17:49)
[2018-09-11] MEDS: AUGMENTIN 875 MG TAB (AMOXICILLIN/CLAVULANATE) PO SCH (17:49)
--- NOTE | 2018-09-11 17:53 | NUR ---
Duragesic patch D/I in place at Rt upper arm, dated 09/10/18.
[2018-09-11] MEDS: IBUPROFEN TABLET 200 MG TAB PO PRN (18:08)
--- NOTE | 2018-09-11 18:58 | NUR ---
Pt moved to [place] per w/c d/t [place] warning.
[2018-09-11] MEDS: GABAPENTIN 300 MG (NEURONTIN) CAP PO SCH (20:53)
[2018-09-11] MEDS: ARTIFICIAL TEARS OINT (LACRI-LUBE) 3.5 GM TUBE OU SCH (20:55)
[2018-09-12] MEDS: KCL 20 MEQ TAB (K-DUR) PO SCH (05:55)
[2018-09-12] MEDS: AUGMENTIN 875 MG TAB (AMOXICILLIN/CLAVULANATE) PO SCH ×2 (05:55→16:50)
[2018-09-12] MEDS: PANTOPRAZOLE 20 MG TABLET (PROTONIX) PO SCH (05:55)
[2018-09-12 06:28] VITALS: BP 131/74
[2018-09-12] MEDS: RT-ALBUTEROL/IPRATROPIUM 3 ML (DUONEB) VIAL INH SCH ×4 (06:35→19:24)
--- NOTE | 2018-09-12 08:15 | PM&R Progress Note ---
Subjective HPI/CC On Admission Date Seen by Provider: September 12, 2018 Time Seen by Provider: 08:15 Chief complaint: Debility HPI: This is a 77yoWM clinic Pt of Dr. Paredes who presented 5 days ago from the ER with pneumonia dysphagia and dehydration. He was having nausea and vomiting and diarrhea, became very dehydrated and very debilitated and presented to the ER placed on aggressive IV fluids and antibiotics for pneumonia and at this current time, Pt is feeling much better but very weak. He does live alone and is very active in his community serving on the [employer] and volunteering at the [employer]. His prior level of functioning was independent with ADLs and ambulation. He was generalized very weak in all extremities and a major fall risk. The goal will be to return back home at the completion of inpatient rehab course. Subjective/Events-last exam He talked about the time a couple years ago when the tractor ran over his left side and caused the traumatic brain injury. We will check with pharmacy to evaluate the antibiotic duration of the Augmentin. Chronic incontinence noted. Had prostate CA surgery and has been incontinent ever since. Two daughters are RNs one works in a [employer]. Has six kids total. Max assist of one at this current time but Pt is very motivated and wants to get better to go home to live alone. Conferred with RN Reviewed therapy notes Review of Systems General: Fatigue Neurological: Weakness Objective Exam Vital Signs Vital Signs Date Time Temp Pulse Resp B/P (MAP) Pulse Ox O2 Delivery O2 Flow Rate FiO2 09/12/18 17:35 98.0 96 18 120/67 (84) 94 Room Air Capillary Refill : General Appearance: No Apparent Distress, WD/WN, Chronically ill, Thin HEENT: PERRL/EOMI, TMs Normal, Normal ENT Inspection, Pharynx Normal, Moist Mucous Membranes Neck: Full Range of Motion, Normal Inspection, Non Tender, Supple Respiratory: Chest Non Tender, Lungs Clear, Normal Breath Sounds, No Accessory Muscle Use, No Respiratory Distress, Decreased Breath Sounds Cardiovascular: Regular Rate, Rhythm, No Edema, No Gallop, No JVD, No Murmur Gastrointestinal: Normal Bowel Sounds, No Organomegaly, No Pulsatile Mass, Non Tender, Soft Back: Normal Inspection, No CVA Tenderness, No Vertebral Tenderness Extremity: Normal Capillary Refill, Normal Inspection, Normal Range of Motion, Non Tender, No Calf Tenderness, No Pedal Edema Neurologic/Psychiatric: Alert, Oriented x3, No Motor/Sensory Deficits (generalized weakness all extremities), Normal Mood/Affect Skin: Normal Color, Warm/Dry Lymphatic: No Adenopathy Results/Procedures Lab Patient resulted labs reviewed. FIM Transfers Therapy Code Descriptions/Definitions Functional Story Measure: 0=Not Assessed/NA 4=Minimal Assistance 1=Total Assistance 5=Supervision or Setup 2=Maximal Assistance 6=Modified Story 3=Moderate Assistance 7=Complete Story Therapy Quality Codes: 6 Independent with activity with or without an assistive device 5 Patient requires set up or clean up by helper. Patient completes activity by themselves 4 Supervision or touching assist (CGA). [place] provide cues , steadying assist 3 The helper provides less than half the effort to complete the activity 2 The helper provides more than half the effort to complete the activity 1 Dependent. The helper does all the effort to complete an activity 7 Patient refused to complete or attempt activity 9 The patient did not perform the activity before the current illness or injury 88 Not attempted due to Medical conditions or safety concerns Transfers (B, C, W/C) (FIM): 4 (CGA in stance for balance.) Scootin Rollin Roll Left to Right (QC): 4 Supine to/from Sit: 5 Sit to/from Stand: 4 Sit to Lying (QC): 4 Sit to Stand (QC): 3 Chair/Udu-fg-Cbxhh Xfer(QC): 4 Car Transfer (QC): 3 Gait Training Does the Patient Walk?: Yes Gait (FIM): 4 Walk 10 feet (QC): 4 Walk 50 ft with 2 Turns(QC): 4 Walk 150 ft (QC): 4 Walking 10ft/uneven surface-QC: 4 Gait Level of Assist: 4 Gait Persons Needed: 1 Gait Assistive Device: FWW Wheelchair Training Does the Pt Use a Wheelchair?: No Stair Training Stairs (FIM): 1 #of Steps: 1 1 Step (curb) (QC): 4 Level of Assist: 4 Mental Status/Objective Comprehension: 5 Expression: 5 Social Interaction: 6 Problem Solvin Memory: 4 ADL-Treatment Groomin (SBA to brush dentures and hair.) Oral Hygiene (QC): 4 Bathin (CGA in stance for balance while washing all parts. Pt. declines showering but agrees to sponge bathe.) Shower/Bathe Self (QC): 4 Upper Extremity Dressin Upper Body Dressing (QC): 4 Lower Extremity Dressin Lower Body Dressing (QC): 4 On/Off Footwear (QC): 4 Assessment/Plan Assessment and Plan Assess & Plan/Chief Complaint Assessment: Debility Pneumonia Lung cancer hx HTN Neuropathy TBI hx Depression GERD Chronic pain Plan: IRF protocol Increase strengthening and safety for fall risk prevention Return home for independent living Complete abx (1) Debility (2) RESPIRATORY FAILURE, UNSP, UNSP W HYPOXIA OR HYPERCAPNIA (3) Lung cancer (4) Chronic pain (5) Essential (primary) hypertension (6) TBI (traumatic brain injury) (7) Anemia (8) Elevated brain natriuretic peptide (BNP) level (9) Confusion Resolution Date/Time: 09/08/18 @ 10:31 (10) Nausea and vomiting BEBETO OLIVAREZ DO September 12, 2018 08:15
--- NOTE | 2018-09-12 08:15 | Individualized Plan of Care ---
Individualized Plan of Care Rehab Nursing IPOC Order Admission Date September 11, 2018 at 10:45 Current Orders Orders Admission Order(Inpt,Obs,Sdc) (09/11/18 10:40) Cable Weaver-Inpt Rehab Con (09/11/18 10:40) Rehab Nursing Orders-Ipoc (09/11/18 10:40) Physical Therapy Rehab Orders (09/11/18 10:40) Occupational Therapy Rehab Ord (09/11/18 10:40) Speech Therapy Rehab Orders (09/11/18 10:40) Intake & Output (09/11/18 10:40) Precautions (Aru) (09/11/18 10:40) Weekly Weight (Lbs) WEEK (09/11/18 10:40) Rehab-Intensity Of Therapy (09/11/18 10:40) Code/Resuscitation (09/11/18 10:40) Admission Arrival Bed Request (09/11/18 10:45) General/Regular (09/11/18 Lunch) Admission Arrival Bed Request (09/11/18 10:45) Patient Visit (09/11/18 ) Pt Eval Moderate Complexity (09/11/18 ) Gait Training, Ea 15 Min (09/11/18 ) Code/Resuscitation (09/11/18 14:53) Initiate Admission Nursing Pro .admission (09/11/18 14:53) Intake & Output (09/11/18 14:53) Automatic Tray (09/11/18 14:53) General/Regular (09/11/18 Dinner) (Nf) Umeclidinium Brm/Vilanterol Tr (Ano (09/12/18 09:00) Albuterol Pre-Mix Nebs (Rt) (Proventil (09/11/18 15:00) Albuterol/Ipra Inhalation Soln (Duoneb I (09/11/18 15:00) Amoxicillin/Clavulanate Tablet (Augmenti (09/11/18 17:00) Aspirin Enteric Coated Tablet (Ecotrin T (09/12/18 09:00) Ferrous Sulfate Tablet (Feosol Tablet) (09/12/18 08:00) Gabapentin Capsule/Tablet (Neurontin Cap (09/11/18 21:00) Ibuprofen Tablet (Motrin Tablet) (09/11/18 15:00) Loratadine Tablet (Claritin Tablet) (09/12/18 09:00) Ondansetron Injection (Zofran Injectio (09/11/18 15:00) Ondansetron Oral Dissolve Tab (Zofran (09/11/18 15:00) Paroxetine Tablet (Paxil Tablet) (09/12/18 09:00) Pantoprazole Tablet (Protonix Tablet) (09/12/18 07:00) Patient May Use Own Med,Single (Patient (09/11/18 15:00) Potassium Chloride (Tablet) (K Dur Table (09/12/18 07:00) Senna S Tablet (Senokot S Tablet) (09/11/18 15:00) Tamsulosin Capsule (Flomax Capsule) (09/12/18 09:00) Amlodipine Tablet (Norvasc Tablet) (09/12/18 09:00) Oxycodone Immediate Rel Tablet (Oxyir Ta (09/11/18 15:00) Mat Initiate Protocol (09/11/18 14:53) Svn Small Volume Nebulizer (09/11/18 14:53) Svn Small Volume Nebulizer (09/11/18 14:53) Svn Small Volume Nebulizer (09/11/18 14:53) Patient Visit (09/11/18 ) Speech Sound Lang Comp (09/11/18 ) Fentanyl Patch (Duragesic Patch) (09/13/18 18:00) Patch Removal (Patch Removal) (09/13/18 17:59) Mineral Oil/Petrolatum Ophth O (Lacri-Rhiannon (09/11/18 21:00) Mineral Oil/Petrolatum Ophth O (Lacri-Rhiannon (09/11/18 16:15) Pharmacy Communication (Pharmacy Communi (09/11/18 16:15) Carboxymethylcell Ophth Soln (Refresh Pl (09/11/18 16:30) Request Ot Evaluate & Treat (09/11/18 16:47) Ambulate 08,12,20 (09/11/18 16:56) Sequential Compression Device 08,20 (09/11/18 16:56) Dvt/Vte Risk - Notifiy Physici 08 (09/11/18 16:56) Code/Resuscitation (09/11/18 17:57) Albuterol/Ipra Inhalation Soln (Duoneb I (09/12/18 07:00) Patient Visit (09/11/18 ) Therapeutic, Group (09/11/18 ) Patient Visit (09/12/18 ) Gait Training, Ea 15 Min (09/12/18 ) Exercise Therap, Ea 15 Min (09/12/18 ) Patient Visit (09/12/18 ) Treat. Speech/Lang/Voice (09/12/18 ) Rehab Nursing Orders: Ongoing Assess. of Cognitive Status, Ongoing Assess. of Function Status, Bladder Management, Bladder Training, Bowel Management, Disease Management & Educaiton, DVT Prophylaxis, Fall Prevention, Fluid/Electrolyte/Nutrition Mgmt, Medication Management & Education, Management of Risks & Complications, Management of Skin Intergrity, Pain Management, Patient/Family Support Intensity of Therapy to be met Patient to be seen: Min.3h per day/5 of 7d PT IPOC Problem List: Activity Tolerance, Functional Strength, Safety, Balance, Gait, Transfer, Bed Mobility, ROM Treatment Plan: Continue Plan of Care Bed Mobility, Education, Functional Activity Herrera, Functional Strength, Group Therapy, Gait, Safety, Therapeutic Exercise, Transfers Treatment Duration: Oct 02, 2018 Frequency: At least 5 of 7 days/Wk (IRF) Estimated Hrs Per Day: 1.5 hours per day OT IPOC Problems: Decreased Activ Tolerance, Decreased Safety Aware, Dependent Transfers, Impaired Cognition, Impaired Funct Balance, Impaired I ADL's, Impaired Self-Care Skills OT Treatment, Training and Edu: Yes Plan of Care: ADL Retraining, Functional Mobility, Group Exercise/Act as Ind, UE Funct Exercise/Act Treatment Duration: Sep 25, 2018 Frequency: At least 5 of 7 days/Wk (IRF) Estimated Hrs Per Day: 1.[address] IPOC Speech Therapy Treatment Plan: Continue Plan of Care Treatment Duration: September 20, 2018 Frequency: 5 times per week Estimated Hrs Per Day: .5 hour per day Cable Weaver/Case Mgmt Cable Weaver/Case Managemen: Discharge Planning Dietitian/Internal Communications Specialist Dietitian/Internal Communications Specialist to monitor nutritional status and make changes and/or recommendations as needed and work with speech pathology on dietary upgrades as the occur. Physician IPOC Medical Issues being managed closely and that require the 24 hour availability of a physician: h/o TBI and chronic pain meds and completing treatment for pneumonia will require close monitoring of O2 sats Medical Issues: Bowel/Bladder Function, DVT Prophylaxis, Falls Precautions, Fluid/Electrolyte/Nutrition Balance, Infection Protection, Pain Management Brief Synthesis of Preadmission Screen, Post-Admission Evaluation, and Therapy Evaluations: PT will focus on safety and fall prevention and ambulation with walker OT will encourage independent ADL's Medical Prognosis: Good Anticipated Length of Stay: 7 days BEBETO OLIVAREZ DO September 12, 2018 08:15
--- NOTE | 2018-09-12 08:38 | NUR ---
Pt turned customer sales consultant lt for assist to go to B/R. Max Ax1 w gait belt, FWW to transfer from bed to B/R. Pt immediately inct of urine upon standing, & walking to B/R, w urine getting on floor, clothes, slippers, Pt assisted to sit on toilet, housekeeping to clean floor, OT in assist w shower, RN placed OpSites over Fentanyl patch on Rt upper arm. Washing clothes. Pt in shower now w OT. Dr. Sullivan was in & saw pt earlier.
[2018-09-12] MEDS: ARTIFICAL TEARS 0.4 ML UNIT DOSE (REFRESH PLUS) OU PRN ×3 (08:44→16:51)
[2018-09-12] MEDS: FERROUS SULF 325 MG (IRON) TAB PO SCH (08:44)
[2018-09-12] MEDS: ASPIRIN E.C. 325 MG (ECOTRIN) TABLET PO SCH (08:44)
[2018-09-12] MEDS: amLODIPine 10 MG (NORVASC) TAB PO SCH (08:45)
[2018-09-12] MEDS: GABAPENTIN 300 MG (NEURONTIN) CAP PO SCH ×3 (08:46→21:30)
[2018-09-12] MEDS: PARoxetine 20 MG (PAXIL) TAB PO SCH (08:46)
[2018-09-12] MEDS: TAMSULOSIN 0.4 MG (FLOMAX) CAP PO SCH (08:46)
[2018-09-12] MEDS: LORATADINE (CLARITIN) 10 MG TAB PO SCH (08:46)
--- NOTE | 2018-09-12 12:01 | Occupational Ther Daily Note ---
OT Current Status-Daily Note Subjective No pain reported. Pt. does ask about his "puffer." States that he was on one at home, and that he needs it here. This was passed on to nursing who did pass on to respiratory therapy. Appearance Pt. in bathroom with nursing when OT entered room. Did agree to shower this date. Mental Status/Objective Patient Orientation: Person, Place Therapy Code Descriptions/Definitions Functional [place] Measure: 0=Not Assessed/NA 4=Minimal Assistance 1=Total Assistance 5=Supervision or Setup 2=Maximal Assistance 6=Modified [place] 3=Moderate Assistance 7=Complete [place] Memory(FIM): 4 (Pt. does exhibit some memory issues and often will repeat himself.) ADL-Treatment Therapy Code Descriptions/Definitions Functional [place] Measure: 0=Not Assessed/NA 4=Minimal Assistance 1=Total Assistance 5=Supervision or Setup 2=Maximal Assistance 6=Modified [place] 3=Moderate Assistance 7=Complete [place] Therapy Quality Codes: 6 Independent with activity with or without an assistive device 5 Patient requires set up or clean up by helper. Patient completes activity by themselves 4 Supervision or touching assist (CGA). Thelma provide cues , steadying assist 3 The helper provides less than half the effort to complete the activity 2 The helper provides more than half the effort to complete the activity 1 Dependent. The helper does all the effort to complete an activity 7 Patient refused to complete or attempt activity 9 The patient did not perform the activity before the current illness or injury 88 Not attempted due to Medical conditions or safety concerns Grooming (FIM): 5 (Set up to brush hair.) Bathing (FIM): 4 (Min assist to dry rear rehan area in stance. CGA in stance otherwise for balance.) Shower/Bathe Self (QC): 4 Upper Body (FIM): 5 Upper Body Dressing (QC): 4 Lower Body Dressing (FIM): 3 (Pt. dressed in shower and states that shower chair is slightly higher than he is used to. Therefore, he required assist to don socks. Pt. able to don pants and brief over feet, but required assistance to nail puller hips.) Lower Body Dressing (QC): 3 On/Off Footwear (QC): 3 Toileting (FIM): 2 (Pt. incontinent of urine on way to bathroom with brief. Pt. able to pull down brief in bathroom.) Toileting Hygiene (QC): 2 Transfers (B, C, W/C) (FIM): 4 Toilet/Commode Transfer (FIM): 4 Toilet Transfer (QC): 4 Shower Transfer(FIM): 4 Other Treatment After shower, pt. ambulated back to chair in room. All needs met with no difficulty. Education OT Patient Education: Correct positioning, Modified ADL techniques, Progress toward Goal/Update tx plan, Purpose of tx/functional activities, Reviewed precautions, Rehab process, Transfer techniques Teaching Recipient: Patient Teaching Methods: Demonstration, Discussion Response to Teaching: Verbalize Understanding, Return Demonstration OT Short Term Goals Short Term Goals Transfers (B,C,W/C) (FIM): 5 1=Demonstrate adherence to instructed precautions during ADL tasks. 2=Patient will verbalize/demonstrate understanding of assistive devices/modifications for ADL. 3=Patient will improve strength/tolerance for activity to enable patient to perform ADL's. OT Senior Living Goals Manager Provider Relations Goals Time Frame: Sep 25, 2018 Eating (FIM): 6 Eating (QC): 6 Groomin Oral Hygiene (QC): 6 Bathing(FIM): 5 Shower/Bathe Self (QC): 6 Upper Body Dressing(FIM): 6 Upper Body Dressing (QC): 6 Lower Body Dressing(FIM): 6 Lower Body Dressing (QC): 6 On/Off Footwear (QC): 6 Toileting(FIM): 6 Toileting Hygiene (QC): 6 Transfers (B,C,W/C) (FIM): 6 Toilet/Commode Transfer(FIM): 6 Toilet/Commode Transfer (QC): 6 Shower Transfer(FIM): 5 Additional Goals: 1-Demonstrate ADL Tasks, 2-Verbalize Understanding, 3-ImproveStrength/Herrera 1=Demonstrate adherence to instructed precautions during ADL tasks. 2=Patient will verbalize/demonstrate understanding of assistive devices/modifications for ADL. 3=Patient will improve strength/tolerance for activity to enable patient to perform ADL's. OT Education/Plan Problem List/Assessment Assessment: Decreased Activ Tolerance, Dependent Transfers, Impaired Cognition, Impaired Funct Balance, Impaired I ADL's, Impaired Self-Care Skills Discharge Recommendations Plan/Recommendations: Continue POC Treatment Plan/Plan of Care Treatment,Training & Education: Yes Patient would benefit from OT for education, treatment and training to promote independence in ADL's, mobility, safety and/or upper extremity function for ADL's. Plan of Care: ADL Retraining, Functional Mobility, Group Exercise/Act as Ind, UE Funct Exercise/Act Treatment Duration: Sep 25, 2018 Frequency: At least 5 of 7 days/Wk (IRF) Estimated Hrs Per Day: 1.5 hours per day Agreement: Yes Rehab Potential: Good Time/GCodes Start Time: 08:25 Stop Time: 09:10 Total Time Billed (hr/min): 45 Billed Treatment Time 1, ADL x 3 MARILIN ESCALANTE OT September 12, 2018 12:01
--- NOTE | 2018-09-12 12:24 | Speech Therapy Daily Note ---
Speech Daily Progress Note Subjective Date Seen by Provider: September 12, 2018 Time Seen by Provider: 00:30 The patient was very pleasant and talkative today. Objective The patient completed problem solving tasks related to his needs in his room with 80% accuracy given min to mod verbal cues and/or repetitions. Assessment Assessment Current Status: Good Progress Treatment Plan Continue Plan of Care Communication Comprehension: 5 Expression: 5 Social Cognition Social Interaction: 6 Problem Solvin Memory: 4 (Pt. does exhibit some memory issues and often will repeat himself.) Speech Short Term Goals Short Term Goals Short Term Goals 1) The patient will complete memory tasks related to himself and daily needs with 90% or greater given minimal verbal cues. 12 The patient will complete problem solving tasks related to himself and daily needs with 90% or greater given minimal verbal cues. Speech Correction Goals Correction Goals The patient will improve his cognitive function in order to return home safely. Speech-Plan Patient/Family Goals Patient/Family Goals: The patient plans on returning home post rehab. Treatment Plan Speech Therapy Treatment Plan: Continue Plan of Care The patient is progressing with skilled therapy. Treatment Duration: September 20, 2018 Frequency: 5 times per week Estimated Hrs Per Day: .5 hour per day Rehab Potential: Good Barriers to Learning: Patient has memory and problem solving deficits Pt/Family Agrees to Plan: Yes Safety Risks/Education Teaching Recipient: Patient Teaching Methods: Discussion Response to Teaching: Verbalize Understanding Education Topics Provided: Safety and review of utilizing the call light as needed. Time Speech Therapy Time In: 09:30 Speech Therapy Time Out: 10:00 Total Billed Time: 30 Billed Treatment Time 1, LIEN Marcos September 12, 2018 12:24
--- NOTE | 2018-09-12 14:02 | Occupational Ther Daily Note ---
OT Current Status-Daily Note Subjective No pain reported. Appearance Pt. up in chair. Agrees to work with OT. Mental Status/Objective Patient Orientation: Person, Place Therapy Code Descriptions/Definitions Functional Humphrey Measure: 0=Not Assessed/NA 4=Minimal Assistance 1=Total Assistance 5=Supervision or Setup 2=Maximal Assistance 6=Modified Humphrey 3=Moderate Assistance 7=Complete Humphrey ADL-Treatment Therapy Code Descriptions/Definitions Functional Humphrey Measure: 0=Not Assessed/NA 4=Minimal Assistance 1=Total Assistance 5=Supervision or Setup 2=Maximal Assistance 6=Modified Humphrey 3=Moderate Assistance 7=Complete Humphrey Therapy Quality Codes: 6 Independent with activity with or without an assistive device 5 Patient requires set up or clean up by helper. Patient completes activity by themselves 4 Supervision or touching assist (CGA). [place] provide cues , steadying assist 3 The helper provides less than half the effort to complete the activity 2 The helper provides more than half the effort to complete the activity 1 Dependent. The helper does all the effort to complete an activity 7 Patient refused to complete or attempt activity 9 The patient did not perform the activity before the current illness or injury 88 Not attempted due to Medical conditions or safety concerns Transfers (B, C, W/C) (FIM): 4 (CGA to ambulate with walker to therapy gym.) Other Treatment Pt. came to therapy gym. Completed 6 bilateral UE exercises x 2 lb. dumbbells x 10 reps each. Worked on overall strengthening. Pt. then tolerated 5 minutes on armbike at mod resistance to increase overall strength and independence with daily tasks. Pt. tolerated this well overall, and ambulated back to room. All needs met in room. Education OT Patient Education: Correct positioning, Exercise program, Modified ADL techniques, Progress toward Goal/Update tx plan, Purpose of tx/functional activities, Reviewed precautions, Rehab process, Transfer techniques Teaching Recipient: Patient Teaching Methods: Demonstration, Discussion Response to Teaching: Verbalize Understanding, Return Demonstration OT Short Term Goals Short Term Goals Transfers (B,C,W/C) (FIM): 5 1=Demonstrate adherence to instructed precautions during ADL tasks. 2=Patient will verbalize/demonstrate understanding of assistive devices/modifications for ADL. 3=Patient will improve strength/tolerance for activity to enable patient to perform ADL's. OT Associate Doctor Goals Associate Doctor Goals Time Frame: Sep 25, 2018 Eating (FIM): 6 Eating (QC): 6 Groomin Oral Hygiene (QC): 6 Bathing(FIM): 5 Shower/Bathe Self (QC): 6 Upper Body Dressing(FIM): 6 Upper Body Dressing (QC): 6 Lower Body Dressing(FIM): 6 Lower Body Dressing (QC): 6 On/Off Footwear (QC): 6 Toileting(FIM): 6 Toileting Hygiene (QC): 6 Transfers (B,C,W/C) (FIM): 6 Toilet/Commode Transfer(FIM): 6 Toilet/Commode Transfer (QC): 6 Shower Transfer(FIM): 5 Additional Goals: 1-Demonstrate ADL Tasks, 2-Verbalize Understanding, 3-ImproveStrength/Herrera 1=Demonstrate adherence to instructed precautions during ADL tasks. 2=Patient will verbalize/demonstrate understanding of assistive devices/modifications for ADL. 3=Patient will improve strength/tolerance for activity to enable patient to perform ADL's. OT Education/Plan Problem List/Assessment Assessment: Decreased Activ Tolerance, Impaired Funct Balance, Impaired I ADL's, Impaired Self-Care Skills Discharge Recommendations Plan/Recommendations: Continue POC Treatment Plan/Plan of Care Treatment,Training & Education: Yes Patient would benefit from OT for education, treatment and training to promote independence in ADL's, mobility, safety and/or upper extremity function for ADL's. Plan of Care: ADL Retraining, Functional Mobility, Group Exercise/Act as Ind, UE Funct Exercise/Act Treatment Duration: Sep 25, 2018 Frequency: At least 5 of 7 days/Wk (IRF) Estimated Hrs Per Day: 1.5 hours per day Agreement: Yes Rehab Potential: Good Time/GCodes Start Time: 10:25 Stop Time: 10:55 Total Time Billed (hr/min): 30 Billed Treatment Time 1, Ex x 2 MARILIN ESCALANTE OT September 12, 2018 14:02
--- NOTE | 2018-09-12 14:53 | Physical Therapy Daily Note ---
PT Daily Note-Current Subjective Agreeable to PT. No complaints. Mental Status Patient Orientation: Person, Place, Time, Situation Transfers Therapy Code Descriptions/Definitions Functional Harn[place] Measure: 0=Not Assessed/NA 4=Minimal Assistance 1=Total Assistance 5=Supervision or Setup 2=Maximal Assistance 6=Modified [place] 3=Moderate Assistance 7=Complete [place] Therapy Quality Codes: 6 Independent with activity with or without an assistive device 5 Patient requires set up or clean up by helper. Patient completes activity by themselves 4 Supervision or touching assist (CGA). [place] provide cues , steadying assist 3 The helper provides less than half the effort to complete the activity 2 The helper provides more than half the effort to complete the activity 1 Dependent. The helper does all the effort to complete an activity 7 Patient refused to complete or attempt activity 9 The patient did not perform the activity before the current illness or injury 88 Not attempted due to Medical conditions or safety concerns Transfers (B, C, W/C) (FIM): 4 Sit to/from Stand: 4 (CGA for safety) pt performed toilet transfer with CGA as well. Gait Training Does the Patient Walk?: Yes Gait (FIM): 4 Distance (FIM): 3=150 ft Distance: 150 ft x 6 reps Gait Assistive Device: FWW Unsteady gait with decreased heel strike and toe off with decreased step length; unsteady and retropulsive at times but no gian LOB episodes Stair Training Stair Training: Handrails/: 2 handrails Stairs (FIM): 2 #of Steps: 4 Stairs: Pattern: Step to skilled cues for sequencing. Exercises Standing: Hip Abduction, Hamstring curls, Heel/toe raises, Marching, Mini squats Standing Reps: 15 Sit to stand ther ex 2 x 5 reps. Assessment Current Status: Good Progress pt tolerated therapy well; pleasant and cooperative; unsteady with gait and transfers and requires asssist for safety. PT Short Term Goals Short Term Goals Time Frame: September 18, 2018 Transfers (B,C,W/C) (FIM): 5 Gait (FIM): 5 Gait Distance Comment: 200' Gait Level of Assist: 5 Gait Assistive Device: FWW PT Numerical Control Operator Goals Detention Goals PT Numerical Control Operator Goals Time Frame: Oct 02, 2018 Transfers (B,C,W/C) (FIM): 6 Sit to Lying (QC): 6 Lying-Sitting on Side/Bed(QC): 6 Sit to Stand (QC): 6 Rollin Roll Left to Right (QC): 6 Chair/Dkx-if-Gxbdl Xfer(QC): 6 Car Transfer (QC): 6 Gait (FIM): 6 Distance: 400' Walk 10 feet (QC): 6 Walk 10ft-Uneven Surface(QC): 6 Walk 50ft with 2 Turns (QC): 6 Walk 150 ft (QC): 6 Gait Level of Assist: 6 Gait Assistive Device: FWW Stairs (FIM): 2 # of Steps: 4 1 Step (curb) (QC): 4 4 Steps (QC): 4 Stairs Level Of Assist: 5 PT Plan Problem List Problem List: Activity Tolerance, Functional Strength, Safety, Balance, Gait, Transfer, Bed Mobility Treatment/Plan Treatment Plan: Continue Plan of Care Treatment Plan: Bed Mobility, Education, Functional Activity Herrera, Functional Strength, Group Therapy, Gait, Safety, Therapeutic Exercise, Transfers Treatment Duration: Oct 02, 2018 Frequency: At least 5 of 7 days/Wk (IRF) Estimated Hrs Per Day: 1.5 hours per day Patient and/or Family Agrees t: Yes Safety Risks/Education Patient Education: Transfer Techniques Teaching Recipient: Patient Teaching Methods: Discussion Response to Teaching: Reinforcement Needed Discharge Recommendations Therapy D/C Recommendations: Physical Therapy Home Care Time/GCodes Time In: 1110 Time Out: 1210 Total Billed Treatment Time: 60 Total Billed Treatment visit GT 30 EX 30 GERMAIN GUZMAN PT September 12, 2018 14:52
--- NOTE | 2018-09-12 14:55 | Physical Therapy Daily Note ---
PT Daily Note-Current Subjective Agrees. Mental Status Patient Orientation: Person, Place, Time, Situation Transfers Therapy Code Descriptions/Definitions Functional Foster Measure: 0=Not Assessed/NA 4=Minimal Assistance 1=Total Assistance 5=Supervision or Setup 2=Maximal Assistance 6=Modified [place] 3=Moderate Assistance 7=Complete Foster Therapy Quality Codes: 6 Independent with activity with or without an assistive device 5 Patient requires set up or clean up by helper. Patient completes activity by themselves 4 Supervision or touching assist (CGA). [place] provide cues , steadying assist 3 The helper provides less than half the effort to complete the activity 2 The helper provides more than half the effort to complete the activity 1 Dependent. The helper does all the effort to complete an activity 7 Patient refused to complete or attempt activity 9 The patient did not perform the activity before the current illness or injury 88 Not attempted due to Medical conditions or safety concerns Gait Training Gait training with FWW with CGA to address higher level mobility to include up/down a curb, uneven surface and weaving--pt completed course 6 times, it was approx 125 ft each rep. ; required CGA to complete safely and skilled cues for safety and sequencing. Pt then rode the nu step x 15 minutes on level 5 to promote CV activity tolerance and LE strength to improve gait and transfers. Treatments Pt in his room post treatment with needs met and chair alarm activated Assessment Current Status: Good Progress PT Short Term Goals Short Term Goals Time Frame: September 18, 2018 Transfers (B,C,W/C) (FIM): 5 Gait (FIM): 5 Gait Distance Comment: 200' Gait Level of Assist: 5 Gait Assistive Device: FWW PT Skilled Nursing Goals Skilled Nursing Goals PT Skilled Nursing Goals Time Frame: Oct 02, 2018 Transfers (B,C,W/C) (FIM): 6 Sit to Lying (QC): 6 Lying-Sitting on Side/Bed(QC): 6 Sit to Stand (QC): 6 Rollin Roll Left to Right (QC): 6 Chair/Pfd-dq-Lgdem Xfer(QC): 6 Car Transfer (QC): 6 Gait (FIM): 6 Distance: 400' Walk 10 feet (QC): 6 Walk 10ft-Uneven Surface(QC): 6 Walk 50ft with 2 Turns (QC): 6 Walk 150 ft (QC): 6 Gait Level of Assist: 6 Gait Assistive Device: FWW Stairs (FIM): 2 # of Steps: 4 1 Step (curb) (QC): 4 4 Steps (QC): 4 Stairs Level Of Assist: 5 PT Plan Problem List Problem List: Activity Tolerance, Functional Strength, Safety, Balance, Gait, Transfer, Bed Mobility Treatment/Plan Treatment Plan: Continue Plan of Care Treatment Plan: Bed Mobility, Education, Functional Activity Herrera, Functional Strength, Group Therapy, Gait, Safety, Therapeutic Exercise, Transfers Treatment Duration: Oct 02, 2018 Frequency: At least 5 of 7 days/Wk (IRF) Estimated Hrs Per Day: 1.5 hours per day Patient and/or Family Agrees t: Yes Safety Risks/Education Patient Education: Safety Issues Teaching Recipient: Patient Teaching Methods: Discussion Response to Teaching: Reinforcement Needed Discharge Recommendations Therapy D/C Recommendations: Physical Therapy Home Care Time/GCodes Time In: 1345 Time Out: 1415 Total Billed Treatment Time: 30 Total Billed Treatment visit GT 15 EX 15 GERMAIN GUZMAN PT September 12, 2018 14:55
[2018-09-12 17:35] VITALS: BP 120/67
[2018-09-12] MEDS: ARTIFICIAL TEARS OINT (LACRI-LUBE) 3.5 GM TUBE OU SCH (21:31)
[2018-09-13] MEDS: PANTOPRAZOLE 20 MG TABLET (PROTONIX) PO SCH (05:22)
[2018-09-13] MEDS: AUGMENTIN 875 MG TAB (AMOXICILLIN/CLAVULANATE) PO SCH ×2 (05:22→18:03)
[2018-09-13] MEDS: KCL 20 MEQ TAB (K-DUR) PO SCH (05:22)
[2018-09-13] MEDS: IBUPROFEN TABLET 200 MG TAB PO PRN (05:23)
[2018-09-13 05:35] VITALS: BP 121/60
[2018-09-13] MEDS: RT-ALBUTEROL/IPRATROPIUM 3 ML (DUONEB) VIAL INH SCH ×4 (06:37→20:12)
--- NOTE | 2018-09-13 08:24 | PM&R Progress Note ---
Subjective HPI/CC On Admission Date Seen by Provider: September 13, 2018 Time Seen by Provider: 08:30 Chief complaint: Debility HPI: This is a 77yoWM clinic Pt of Dr. Paredes who presented 5 days ago from the ER with pneumonia dysphagia and dehydration. He was having nausea and vomiting and diarrhea, became very dehydrated and very debilitated and presented to the ER placed on aggressive IV fluids and antibiotics for pneumonia and at this current time, Pt is feeling much better but very weak. He does live alone and is very active in his community serving on the [employer] and volunteering at the [employer]. His prior level of functioning was independent with ADLs and ambulation. He was generalized very weak in all extremities and a major fall risk. The goal will be to return back home at the completion of inpatient rehab course. Subjective/Events-last exam Pt doing very well. Participating in all therapies. Getting stronger by the day. Bowels are moving. Has no concern. Talking about his inhaler so will evaluate that on his home medication list. Conferred with RN. Reviewed therapy notes. Completing antibiotics for pneumonia with Augmentin. States he is going home on Sunday but I am unsure who gave him that idea, I was very vague when I told him his stay in rehab would be as brief as possible but I do not think he can go home Sunday Review of Systems General: Fatigue Pulmonary: Cough Objective Exam Vital Signs Vital Signs Date Time Temp Pulse Resp B/P (MAP) Pulse Ox O2 Delivery O2 Flow Rate FiO2 09/13/18 21:03 Room Air 09/13/18 20:12 96 09/13/18 18:00 98.4 81 18 128/77 (94) Capillary Refill : General Appearance: No Apparent Distress, WD/WN, Chronically ill, Thin HEENT: PERRL/EOMI, TMs Normal, Normal ENT Inspection, Pharynx Normal, Moist Mucous Membranes Neck: Full Range of Motion, Normal Inspection, Non Tender, Supple Respiratory: Chest Non Tender, Lungs Clear, Normal Breath Sounds, No Accessory Muscle Use, No Respiratory Distress, Decreased Breath Sounds Cardiovascular: Regular Rate, Rhythm, No Edema, No Gallop, No JVD, No Murmur Gastrointestinal: Normal Bowel Sounds, No Organomegaly, No Pulsatile Mass, Non Tender, Soft Back: Normal Inspection, No CVA Tenderness, No Vertebral Tenderness Extremity: Normal Capillary Refill, Normal Inspection, Normal Range of Motion, Non Tender, No Calf Tenderness, No Pedal Edema Neurologic/Psychiatric: Alert, Oriented x3, No Motor/Sensory Deficits (generalized weakness all extremities), Normal Mood/Affect Skin: Normal Color, Warm/Dry Lymphatic: No Adenopathy Results/Procedures Lab Patient resulted labs reviewed. FIM Transfers Therapy Code Descriptions/Definitions Functional [place] Measure: 0=Not Assessed/NA 4=Minimal Assistance 1=Total Assistance 5=Supervision or Setup 2=Maximal Assistance 6=Modified [place] 3=Moderate Assistance 7=Complete [place]a Therapy Quality Codes: 6 Independent with activity with or without an assistive device 5 Patient requires set up or clean up by helper. Patient completes activity by themselves 4 Supervision or touching assist (CGA). [place] provide cues , steadying assist 3 The helper provides less than half the effort to complete the activity 2 The helper provides more than half the effort to complete the activity 1 Dependent. The helper does all the effort to complete an activity 7 Patient refused to complete or attempt activity 9 The patient did not perform the activity before the current illness or injury 88 Not attempted due to Medical conditions or safety concerns Transfers (B, C, W/C) (FIM): 4 Scootin Rollin Roll Left to Right (QC): 4 Supine to/from Sit: 5 Sit to/from Stand: 4 (CGA for safety) Sit to Lying (QC): 4 Sit to Stand (QC): 3 Chair/Fgc-nk-Wlfhj Xfer(QC): 4 Car Transfer (QC): 3 Gait Training Does the Patient Walk?: Yes Gait (FIM): 4 Distance (FIM): 3=150 ft Distance: 150 ft x 6 reps Walk 10 feet (QC): 4 Walk 50 ft with 2 Turns(QC): 4 Walk 150 ft (QC): 4 Walking 10ft/uneven surface-QC: 4 Gait Level of Assist: 4 Gait Persons Needed: 1 Gait Assistive Device: FWW Wheelchair Training Does the Pt Use a Wheelchair?: No Stair Training Stair Training: Handrails/: 2 handrails Stairs (FIM): 2 #of Steps: 4 1 Step (curb) (QC): 4 Stairs: Pattern: Step to Level of Assist: 4 Mental Status/Objective Comprehension: 5 Expression: 5 Social Interaction: 6 Problem Solvin Memory: 4 (Pt. does exhibit some memory issues and often will repeat himself.) ADL-Treatment Groomin (Set up to brush hair.) Oral Hygiene (QC): 4 Bathin (Min assist to dry rear rehan area in stance. CGA in stance otherwise for balance.) Shower/Bathe Self (QC): 4 Upper Extremity Dressin Upper Body Dressing (QC): 4 Lower Extremity Dressin (Pt. dressed in shower and states that shower chair is slightly higher than he is used to. Therefore, he required assist to don socks. Pt. able to don pants and brief over feet, but required assistance to stick puller hips.) Lower Body Dressing (QC): 3 On/Off Footwear (QC): 3 Toiletin (Pt. incontinent of urine on way to bathroom with brief. Pt. able to pull down brief in bathroom.) Toileting Hygiene (QC): 2 Toilet/Commode Transfer: 4 Toilet Transfer (QC): 4 Shower: 4 Assessment/Plan Assessment and Plan Assess & Plan/Chief Complaint Assessment: Debility Pneumonia Lung cancer hx HTN Neuropathy TBI hx Depression GERD Chronic pain Plan: IRF protocol Increase strengthening and safety for fall risk prevention Return home for independent living Complete abx (1) Debility (2) RESPIRATORY FAILURE, UNSP, UNSP W HYPOXIA OR HYPERCAPNIA (3) Lung cancer (4) Chronic pain (5) Essential (primary) hypertension (6) TBI (traumatic brain injury) (7) Anemia (8) Elevated brain natriuretic peptide (BNP) level (9) Confusion Resolution Date/Time: 09/08/18 @ 10:31 (10) Nausea and vomiting BEBETO OLIVAREZ DO September 13, 2018 08:24
[2018-09-13] MEDS: GABAPENTIN 300 MG (NEURONTIN) CAP PO SCH ×3 (08:25→20:49)
[2018-09-13] MEDS: TAMSULOSIN 0.4 MG (FLOMAX) CAP PO SCH (08:25)
[2018-09-13] MEDS: ASPIRIN E.C. 325 MG (ECOTRIN) TABLET PO SCH (08:25)
[2018-09-13] MEDS: PARoxetine 20 MG (PAXIL) TAB PO SCH (08:25)
[2018-09-13] MEDS: FERROUS SULF 325 MG (IRON) TAB PO SCH (08:25)
[2018-09-13] MEDS: amLODIPine 10 MG (NORVASC) TAB PO SCH (08:25)
[2018-09-13] MEDS: LORATADINE (CLARITIN) 10 MG TAB PO SCH (08:25)
--- NOTE | 2018-09-13 10:00 | Speech Therapy Daily Note ---
Speech Daily Progress Note Subjective Date Seen by Provider: September 13, 2018 Time Seen by Provider: 00:30 The patient was alert and very talkative today. Objective The patient completed problem solving tasks at 80% with minimal cues. Assessment Assessment Current Status: Good Progress Treatment Plan Continue Plan of Care Communication Comprehension: 5 Expression: 5 Social Cognition Social Interaction: 6 Problem Solvin Memory: 4 (Pt. does exhibit some memory issues and often will repeat himself.) Speech Short Term Goals Short Term Goals Short Term Goals 1) The patient will complete memory tasks related to himself and daily needs with 90% or greater given minimal verbal cues. 12 The patient will complete problem solving tasks related to himself and daily needs with 90% or greater given minimal verbal cues. Speech Snf Goals Snf Goals The patient will improve his cognitive function in order to return home safely. Speech-Plan Patient/Family Goals Patient/Family Goals: The patient plans to return home with family support post rehab. Treatment Plan Speech Therapy Treatment Plan: Continue Plan of Care The patient is progressing well as a result of skilled services. Treatment Duration: September 20, 2018 Frequency: 5 times per week Estimated Hrs Per Day: .5 hour per day Rehab Potential: Good Barriers to Learning: Patient has some confusion at times, although it is resolving. Pt/Family Agrees to Plan: Yes Safety Risks/Education Teaching Recipient: Patient Teaching Methods: Discussion Response to Teaching: Verbalize Understanding Education Topics Provided: Safety procedures within his room. Time Speech Therapy Time In: 09:15 Speech Therapy Time Out: 09:45 Total Billed Time: 30 Billed Treatment Time 1, LIEN Marcos September 13, 2018 10:00
--- NOTE | 2018-09-13 10:30 | NUR ---
[employer] met with patient to complete initial assessment. Patient was alert oriented and agreeable to assessment. She admitted to a RU from [facility] with debility following COPD exacerbation. Prior to hospitalization patient resided alone in a two-story home in [place], [place]; however, only utilizes the main level. The home is equipped with a ramp at the entrance.she reports independence with ambulation and ADLs with assistance of a cane. Patient also possesses a 4 wheeled walker and wheelchair. Patient was active in the community, still driving and completed physical wellness in [place]. Patient identifies sonJimbo [place] at [phone] and daughter Dolly of [place] as primary contacts. CP identified as Dr. sutton. Insurance verified as Medicare and Equitable with [employer] prescription coverage and preferred pharmacy as [facility].W reviewed typical ARU length of stay and weekly team conferences. Patient is hopeful to discharge soon. Patient is open to outpatient therapy as he does not wish to be homebound for home health services. [employer] will continue to follow for additional needs.
--- NOTE | 2018-09-13 10:58 | Occupational Ther Daily Note ---
OT Current Status-Daily Note Subjective Pt in restroom when therapist arrives, requesting to take shower. Pt reports 5/10 pain in right foot. Mental Status/Objective Therapy Code Descriptions/Definitions Functional [place] Measure: 0=Not Assessed/NA 4=Minimal Assistance 1=Total Assistance 5=Supervision or Setup 2=Maximal Assistance 6=Modified [place] 3=Moderate Assistance 7=Complete [place] ADL-Treatment Pt in restroom, had already doffed clothing. Transfer to walk in shower with minimal assistance and skilled cues for safety. Seated bathing completed using hand held shower. Pt washed upper body with SBA. Minimal assistance for balance while standing to wash buttocks. Don pullover shirt with set up. Pt able to thread right LE into pant legs, but required min assist to thread left LE. Stood with CGA for balance during pant hike. Pt donned socks with SBA while seated in chair. Donned Velcro fasten shoes with SBA. Combed hair with set up. Pt's meal tray was present. Pt required set up to open milk carton, but was then able to feed self. Therapy Code Descriptions/Definitions Functional [place] Measure: 0=Not Assessed/NA 4=Minimal Assistance 1=Total Assistance 5=Supervision or Setup 2=Maximal Assistance 6=Modified [place] 3=Moderate Assistance 7=Complete [place] Therapy Quality Codes: 6 Independent with activity with or without an assistive device 5 Patient requires set up or clean up by helper. Patient completes activity by themselves 4 Supervision or touching assist (CGA). [place] provide cues , steadying assist 3 The helper provides less than half the effort to complete the activity 2 The helper provides more than half the effort to complete the activity 1 Dependent. The helper does all the effort to complete an activity 7 Patient refused to complete or attempt activity 9 The patient did not perform the activity before the current illness or injury 88 Not attempted due to Medical conditions or safety concerns Eating (FIM): 5 Eating (QC): 5 Grooming (FIM): 5 Bathing (FIM): 4 Shower/Bathe Self (QC): 3 Upper Body (FIM): 5 Upper Body Dressing (QC): 5 Lower Body Dressing (FIM): 4 Lower Body Dressing (QC): 3 Shower Transfer(FIM): 4 Other Treatment Pt completed bilateral UE exercises to increase strength needed for ADLs and transfers. Pt performed four exercises x10 reps with 2# weights. Skilled cues for proper exercise technique. Rest breaks taken between exercises. Pt sitting in chair with needs met after session. OT Short Term Goals Short Term Goals Transfers (B,C,W/C) (FIM): 5 1=Demonstrate adherence to instructed precautions during ADL tasks. 2=Patient will verbalize/demonstrate understanding of assistive devices/modifications for ADL. 3=Patient will improve strength/tolerance for activity to enable patient to perform ADL's. OT House Superintendent Goals Longterm Goals Time Frame: Sep 25, 2018 Eating (FIM): 6 Eating (QC): 6 Groomin Oral Hygiene (QC): 6 Bathing(FIM): 5 Shower/Bathe Self (QC): 6 Upper Body Dressing(FIM): 6 Upper Body Dressing (QC): 6 Lower Body Dressing(FIM): 6 Lower Body Dressing (QC): 6 On/Off Footwear (QC): 6 Toileting(FIM): 6 Toileting Hygiene (QC): 6 Transfers (B,C,W/C) (FIM): 6 Toilet/Commode Transfer(FIM): 6 Toilet/Commode Transfer (QC): 6 Shower Transfer(FIM): 5 Additional Goals: 1-Demonstrate ADL Tasks, 2-Verbalize Understanding, 3- ImproveStrength/Herrera 1=Demonstrate adherence to instructed precautions during ADL tasks. 2=Patient will verbalize/demonstrate understanding of assistive devices/modifications for ADL. 3=Patient will improve strength/tolerance for activity to enable patient to perform ADL's. OT Education/Plan Discharge Recommendations Plan/Recommendations: Continue POC Treatment Plan/Plan of Care Patient would benefit from OT for education, treatment and training to promote independence in ADL's, mobility, safety and/or upper extremity function for ADL's. Plan of Care: ADL Retraining, Functional Mobility, Group Exercise/Act as Ind, UE Funct Exercise/Act Treatment Duration: Sep 25, 2018 Frequency: At least 5 of 7 days/Wk (IRF) Estimated Hrs Per Day: 1.5 hours per day Agreement: Yes Rehab Potential: Good Time/GCodes Start Time: 08:15 Stop Time: 09:15 Total Time Billed (hr/min): 60 Billed Treatment Time 1 visit, ADL(45minutes), EX(15minutes) BARNEY GRECO OT September 13, 2018 10:58
[2018-09-13] MEDS: ARTIFICAL TEARS 0.4 ML UNIT DOSE (REFRESH PLUS) OU PRN ×2 (11:00→18:00)
--- NOTE | 2018-09-13 13:03 | Physical Therapy Daily Note ---
PT Daily Note-Current Subjective Pt reports his right eye is really bothering him and is waiting on eye drops. Agreeable to PT session Pain Numeric Pain Scale: 0-No Pain Appearance Pt sitting up in recliner awake and alert upon arrival Pt requesting eye drops, nursing notified At end of session, pt sitting up in recliner, assisted pt with ordering lunch, call light, phone and bedside table within reach, chair alarm activated Mental Status Patient Orientation: Person, Place, Time, Eyes Open, Situation Transfers Therapy Code Descriptions/Definitions Functional [place] Measure: 0=Not Assessed/NA 4=Minimal Assistance 1=Total Assistance 5=Supervision or Setup 2=Maximal Assistance 6=Modified [place] 3=Moderate Assistance 7=Complete [place] Therapy Quality Codes: 6 Independent with activity with or without an assistive device 5 Patient requires set up or clean up by helper. Patient completes activity by themselves 4 Supervision or touching assist (CGA). [place] provide cues , steadying assist 3 The helper provides less than half the effort to complete the activity 2 The helper provides more than half the effort to complete the activity 1 Dependent. The helper does all the effort to complete an activity 7 Patient refused to complete or attempt activity 9 The patient did not perform the activity before the current illness or injury 88 Not attempted due to Medical conditions or safety concerns Transfers (B, C, W/C) (FIM): 5 Sit to/from Stand: 5 (requiring min instruction for safety and hand placement) no unsteadiness or LOB when performs transitions with correct technique and hand placement Gait Training Does the Patient Walk?: Yes Gait (FIM): 4 Distance (FIM): 3=150 ft Distance: 300, 150 x2, 300 Gait Level of Assist: 4 (CGA provided at times over uneven surfaces outside, otherwise SBA) Gait Assistive Device: FWW indoor and outdoor surface, concrete, uneven ground, doorway thresholds, R foot IR and slight inversion, several rest breaks required due to fatigue Exercises NuStep Minutes: 20 NuStep Workload: 6 (seat 12, arms 12, instruction to increase motion) Treatments transfers, safety, gait, functional mobility, activity tolerance, energy conservation, breathing techniques, education, strength, balance Assessment Current Status: Good Progress outside amb with FWW today, SBA-CGA, rest breaks required during session PT Short Term Goals Short Term Goals Time Frame: September 18, 2018 Transfers (B,C,W/C) (FIM): 5 Gait (FIM): 5 Gait Distance Comment: 200' Gait Level of Assist: 5 Gait Assistive Device: FWW PT Residential Goals Residential Goals PT Residential Goals Time Frame: Oct 02, 2018 Transfers (B,C,W/C) (FIM): 6 Sit to Lying (QC): 6 Lying-Sitting on Side/Bed(QC): 6 Sit to Stand (QC): 6 Rollin Roll Left to Right (QC): 6 Chair/Kdb-xz-Bgmzv Xfer(QC): 6 Car Transfer (QC): 6 Gait (FIM): 6 Distance: 400' Walk 10 feet (QC): 6 Walk 10ft-Uneven Surface(QC): 6 Walk 50ft with 2 Turns (QC): 6 Walk 150 ft (QC): 6 Gait Level of Assist: 6 Gait Assistive Device: FWW Stairs (FIM): 2 # of Steps: 4 1 Step (curb) (QC): 4 4 Steps (QC): 4 Stairs Level Of Assist: 5 PT Plan Treatment/Plan Treatment Plan: Continue Plan of Care Treatment Plan: Bed Mobility, Education, Functional Activity Herrera, Functional Strength, Group Therapy, Gait, Safety, Therapeutic Exercise, Transfers Treatment Duration: Oct 02, 2018 Frequency: At least 5 of 7 days/Wk (IRF) Estimated Hrs Per Day: 1.5 hours per day Patient and/or Family Agrees t: Yes Safety Risks/Education Patient Education: Gait Training, Transfer Techniques, Safety Issues Teaching Recipient: Patient Teaching Methods: Demonstration, Discussion Response to Teaching: Verbalize Understanding, Return Demonstration, Reinforcement Needed Time/GCodes Time In: 1015 Time Out: 1100 Total Billed Treatment Time: 45 Total Billed Treatment 1 visit, GT x 2 units, EX x 1 unit STEVE MONK SENIOR CONSULTANT September 13, 2018 13:03
--- NOTE | 2018-09-13 14:15 | NUR ---
Heat Treater follow up: pt continues to request prayers and demonstrate reliance upon his lavell for inner hope and strength.
--- NOTE | 2018-09-13 15:02 | Therapy Group Daily Note ---
Therapy Daily Group Note Patient Education Topic Other List Below (memory strategies, ARU orientation) Exercises LE Seated Exercise, UE Exercise Session Ratio (pt:therapist): 4:1 Goal of Session: Education on ARU Expectations, Memory Strategies Goal Met for this Session: Yes Pt Benefit of Group: Contributions to Others, Increased Functional Strength, Improved Cognition, Recognition of Peers, Socialization Other/Notes Pt. was an active participant in PT OT group. Pt. came and went with assistance utilizing FWW. Pts. shared names, home town and enjoyed a lot of laughs and conversation by sharing ' if their life were a movie, what genre would it be and who would star in the film'..Pts all participated in balloon volleyball and had good interaction and team effort, while seated. Memory match finding game followed along with education about importance of memory and strategies for such. pt. to room after group with breaux at hand Start Time: 13:00 Stop Time: 14:40 Total Billed Treatment Time: 100 Total Billed Treatment 1,GRP KYLER SOTELO DOCUMENT IMAGING MANAGER September 13, 2018 15:02
[2018-09-13 16:26] VITALS: BP 121/60
[2018-09-13] MEDS ORDERED: RT-ALBUTEROL/IPRATROPIUM 3 ML (DUONEB) VIAL INH PRN (17:00)
[2018-09-13 18:00] VITALS: BP 128/77
[2018-09-13] MEDS: FENTANYL 100 MCG PATCH REMOVAL TP SCH (18:03)
[2018-09-13] MEDS: fentaNYL PATCH 100 MCG (DURAGESIC) TD SCH (18:39)
[2018-09-13] MEDS: ARTIFICIAL TEARS OINT (LACRI-LUBE) 3.5 GM TUBE OU SCH (20:49)
[2018-09-14 06:00] VITALS: BP 129/71
[2018-09-14] MEDS: PANTOPRAZOLE 20 MG TABLET (PROTONIX) PO SCH (06:04)
[2018-09-14] MEDS: AUGMENTIN 875 MG TAB (AMOXICILLIN/CLAVULANATE) PO SCH ×2 (06:04→16:48)
[2018-09-14] MEDS: KCL 20 MEQ TAB (K-DUR) PO SCH (06:04)
[2018-09-14] MEDS: RT-ALBUTEROL/IPRATROPIUM 3 ML (DUONEB) VIAL INH SCH ×2 (07:23→19:13)
[2018-09-14] MEDS: FERROUS SULF 325 MG (IRON) TAB PO SCH (08:38)
[2018-09-14] MEDS: TAMSULOSIN 0.4 MG (FLOMAX) CAP PO SCH (08:38)
[2018-09-14] MEDS: GABAPENTIN 300 MG (NEURONTIN) CAP PO SCH ×3 (08:38→20:54)
[2018-09-14] MEDS: LORATADINE (CLARITIN) 10 MG TAB PO SCH (08:38)
[2018-09-14] MEDS: ARTIFICAL TEARS 0.4 ML UNIT DOSE (REFRESH PLUS) OU PRN ×3 (08:38→17:03)
[2018-09-14] MEDS: PARoxetine 20 MG (PAXIL) TAB PO SCH (08:38)
[2018-09-14] MEDS: amLODIPine 10 MG (NORVASC) TAB PO SCH (08:38)
[2018-09-14] MEDS: ASPIRIN E.C. 325 MG (ECOTRIN) TABLET PO SCH (08:38)
--- NOTE | 2018-09-14 11:41 | PM&R Progress Note ---
Subjective HPI/CC On Admission Date Seen by Provider: September 14, 2018 Time Seen by Provider: 11:45 Chief complaint: Debility HPI: This is a 77yoWM clinic Pt of Dr. Paredes who presented 5 days ago from the ER with pneumonia dysphagia and dehydration. He was having nausea and vomiting and diarrhea, became very dehydrated and very debilitated and presented to the ER placed on aggressive IV fluids and antibiotics for pneumonia and at this current time, Pt is feeling much better but very weak. He does live alone and is very active in his community serving on the [employer] and volunteering at the [employer]. His prior level of functioning was independent with ADLs and ambulation. He was generalized very weak in all extremities and a major fall risk. The goal will be to return back home at the completion of inpatient rehab course. Subjective/Events-last exam Pt doing very well. Participating in all therapies. Getting stronger by the day. Wants to go home soon but he just now was able to walk around confidently with therapy. Bowels are moving. Has no concerns about his overall status Talked yesterday about his inhaler so evaluated that on his home medication list. We restarted that Conferred with RN. Reviewed therapy notes. Completing antibiotics for pneumonia with Augmentin. Last day 09/18/18 Review of Systems General: Fatigue Objective Exam Vital Signs Vital Signs Date Time Temp Pulse Resp B/P (MAP) Pulse Ox O2 Delivery O2 Flow Rate FiO2 09/14/18 07:23 94 Room Air 09/14/18 06:00 97.8 76 18 129/71 (90) Capillary Refill : General Appearance: No Apparent Distress, WD/WN, Chronically ill, Thin HEENT: PERRL/EOMI, TMs Normal, Normal ENT Inspection, Pharynx Normal, Moist Mucous Membranes Neck: Full Range of Motion, Normal Inspection, Non Tender, Supple Respiratory: Chest Non Tender, Lungs Clear, Normal Breath Sounds, No Accessory Muscle Use, No Respiratory Distress, Decreased Breath Sounds Cardiovascular: Regular Rate, Rhythm, No Edema, No Gallop, No JVD, No Murmur Gastrointestinal: Normal Bowel Sounds, No Organomegaly, No Pulsatile Mass, Non Tender, Soft Back: Normal Inspection, No CVA Tenderness, No Vertebral Tenderness Extremity: Normal Capillary Refill, Normal Inspection, Normal Range of Motion, Non Tender, No Calf Tenderness, No Pedal Edema Neurologic/Psychiatric: Alert, Oriented x3, No Motor/Sensory Deficits (generalized weakness all extremities), Normal Mood/Affect Skin: Normal Color, Warm/Dry Lymphatic: No Adenopathy Results/Procedures Lab Patient resulted labs reviewed. FIM Transfers Therapy Code Descriptions/Definitions Functional [place] Measure: 0=Not Assessed/NA 4=Minimal Assistance 1=Total Assistance 5=Supervision or Setup 2=Maximal Assistance 6=Modified [place] 3=Moderate Assistance 7=Complete [place] Therapy Quality Codes: 6 Independent with activity with or without an assistive device 5 Patient requires set up or clean up by helper. Patient completes activity by themselves 4 Supervision or touching assist (CGA). [place] provide cues , steadying assist 3 The helper provides less than half the effort to complete the activity 2 The helper provides more than half the effort to complete the activity 1 Dependent. The helper does all the effort to complete an activity 7 Patient refused to complete or attempt activity 9 The patient did not perform the activity before the current illness or injury 88 Not attempted due to Medical conditions or safety concerns Transfers (B, C, W/C) (FIM): 5 Scootin Rollin Roll Left to Right (QC): 4 Supine to/from Sit: 5 Sit to/from Stand: 5 (requiring min instruction for safety and hand placement) Sit to Lying (QC): 4 Sit to Stand (QC): 3 Chair/Zfp-lc-Aducx Xfer(QC): 4 Car Transfer (QC): 3 Gait Training Does the Patient Walk?: Yes Gait (FIM): 4 Distance (FIM): 3=150 ft Distance: 300, 150 x2, 300 Walk 10 feet (QC): 4 Walk 50 ft with 2 Turns(QC): 4 Walk 150 ft (QC): 4 Walking 10ft/uneven surface-QC: 4 Gait Level of Assist: 4 (CGA provided at times over uneven surfaces outside, otherwise SBA) Gait Persons Needed: 1 Gait Assistive Device: FWW Wheelchair Training Does the Pt Use a Wheelchair?: No Stair Training Stair Training: Handrails/: 2 handrails Stairs (FIM): 2 #of Steps: 4 1 Step (curb) (QC): 4 Stairs: Pattern: Step to Level of Assist: 4 Mental Status/Objective Comprehension: 5 Expression: 5 Social Interaction: 6 Problem Solvin Memory: 4 (Pt. does exhibit some memory issues and often will repeat himself.) ADL-Treatment Feedin Eating (QC): 5 Groomin Oral Hygiene (QC): 4 Bathin Shower/Bathe Self (QC): 3 Upper Extremity Dressin Upper Body Dressing (QC): 5 Lower Extremity Dressin Lower Body Dressing (QC): 3 On/Off Footwear (QC): 3 Toiletin (Pt. incontinent of urine on way to bathroom with brief. Pt. able to pull down brief in bathroom.) Toileting Hygiene (QC): 2 Toilet/Commode Transfer: 4 Toilet Transfer (QC): 4 Shower: 4 Assessment/Plan Assessment and Plan Assess & Plan/Chief Complaint Assessment: Debility Pneumonia Lung cancer hx HTN Neuropathy TBI hx Depression GERD Chronic pain Plan: IRF protocol Increase strengthening and safety for fall risk prevention Return home for independent living Complete abx 09/18/18 (1) Debility (2) RESPIRATORY FAILURE, UNSP, UNSP W HYPOXIA OR HYPERCAPNIA (3) Lung cancer (4) Chronic pain (5) Essential (primary) hypertension (6) TBI (traumatic brain injury) (7) Anemia (8) Elevated brain natriuretic peptide (BNP) level (9) Confusion Resolution Date/Time: 09/08/18 @ 10:31 (10) Nausea and vomiting BEBETO OLIVAREZ DO September 14, 2018 11:41
--- NOTE | 2018-09-14 12:25 | Physical Therapy Daily Note ---
PT Daily Note-Current Subjective Pt reports he did not sleep well at all last night and is a little tired this morning. Agreeable to PT session. States family will be here later this afternoon and is looking forward to their visit. Pt requesting to be up in a w/c during the days so that he can have I mobility around the unit, discussed with nursing and agreeable as long as pt is supervised with transitions to and from w/c Pain Numeric Pain Scale: 0-No Pain Appearance Pt sitting up in chair upon arrival, napping, easily aroused Pt requesting and was assisted in using restroom, donning shoes At end of session, pt sitting up in recliner with chair alarm activated, call light, phone and bedside table within reach. Mental Status Patient Orientation: Person, Place, Time, Eyes Open, Situation Transfers Therapy Code Descriptions/Definitions Functional [place] Measure: 0=Not Assessed/NA 4=Minimal Assistance 1=Total Assistance 5=Supervision or Setup 2=Maximal Assistance 6=Modified [place] 3=Moderate Assistance 7=Complete [place] Therapy Quality Codes: 6 Independent with activity with or without an assistive device 5 Patient requires set up or clean up by helper. Patient completes activity by themselves 4 Supervision or touching assist (CGA). [place] provide cues , steadying assist 3 The helper provides less than half the effort to complete the activity 2 The helper provides more than half the effort to complete the activity 1 Dependent. The helper does all the effort to complete an activity 7 Patient refused to complete or attempt activity 9 The patient did not perform the activity before the current illness or injury 88 Not attempted due to Medical conditions or safety concerns Transfers (B, C, W/C) (FIM): 5 Sit to/from Stand: 5 Pt performing all transitions safely and with correct hand placement Gait Training Does the Patient Walk?: Yes Gait (FIM): 5 Distance (FIM): 3=150 ft Distance: 250, 500 Gait Level of Assist: 5 Gait Persons Needed: 1 Gait Assistive Device: FWW indoor and outdoor gait, ramp and 3 stairs. Occasional unsteadiness, no LOB. R foot toed in Stair Training Stair Training: Handrails/: 1 handrail (turns sideways with BUE's on handrail) #of Steps: 3 (descending) Stairs: Pattern: Step to Level of Assist: 4 (CGA provided for safety) up ramp with FWW CGA Treatments transfers, safety, bathroom, donning shoes, gait, stairs, ramp, balance, activity tolerance, functional mobility, education Assessment Current Status: Good Progress PT Short Term Goals Short Term Goals Time Frame: September 18, 2018 Transfers (B,C,W/C) (FIM): 5 Gait (FIM): 5 Gait Distance Comment: 200' Gait Level of Assist: 5 Gait Assistive Device: FWW PT Custodial Goals Carton Inspector Goals PT Custodial Goals Time Frame: Oct 02, 2018 Transfers (B,C,W/C) (FIM): 6 Sit to Lying (QC): 6 Lying-Sitting on Side/Bed(QC): 6 Sit to Stand (QC): 6 Rollin Roll Left to Right (QC): 6 Chair/Eqz-ya-Iduei Xfer(QC): 6 Car Transfer (QC): 6 Gait (FIM): 6 Distance: 400' Walk 10 feet (QC): 6 Walk 10ft-Uneven Surface(QC): 6 Walk 50ft with 2 Turns (QC): 6 Walk 150 ft (QC): 6 Gait Level of Assist: 6 Gait Assistive Device: FWW Stairs (FIM): 2 # of Steps: 4 1 Step (curb) (QC): 4 4 Steps (QC): 4 Stairs Level Of Assist: 5 PT Plan Treatment/Plan Treatment Plan: Continue Plan of Care Treatment Plan: Bed Mobility, Education, Functional Activity Herrera, Functional Strength, Group Therapy, Gait, Safety, Therapeutic Exercise, Transfers Treatment Duration: Oct 02, 2018 Frequency: At least 5 of 7 days/Wk (IRF) Estimated Hrs Per Day: 1.5 hours per day Patient and/or Family Agrees t: Yes Safety Risks/Education Patient Education: Gait Training, Transfer Techniques, Steps, Safety Issues Teaching Recipient: Patient Teaching Methods: Demonstration, Discussion Response to Teaching: Verbalize Understanding, Return Demonstration Time/GCodes Time In: 1030 Time Out: 1101 Total Billed Treatment Time: 31 Total Billed Treatment 1 visit, GT x 2 units STEVE MONK PTA September 14, 2018 12:25
[2018-09-14] MEDS: VILANTEROL IH SCH (14:29)
[2018-09-14] MEDS: UMECLIDINIUM IH SCH (14:29)
[2018-09-14 17:53] VITALS: BP 134/76
[2018-09-14] MEDS: ARTIFICIAL TEARS OINT (LACRI-LUBE) 3.5 GM TUBE OU SCH (20:52)
[2018-09-15 05:05] VITALS: BP 147/76
[2018-09-15 06:25] LABS: BASOPHILS % (AUTO) 0 % (0-10); EOSINOPHILS # (AUTO) 0.7 10^3/uL (0.0-0.3); EOSINOPHILS % (AUTO) 12 % (0-10); HEMATOCRIT 34 % (40-54); HEMOGLOBIN 10.9 G/DL (13.3-17.7); LYMPHOCYTES # (AUTO) 1.8 X 10^3 (1.0-4.0); LYMPHOCYTES % (AUTO) 34 % (12-44); MEAN CORPUSCULAR HEMOGLOBIN 28 PG (25-34); MEAN CORPUSCULAR HGB CONC 32 G/DL (32-36); MEAN CORPUSCULAR VOLUME 87 FL (80-99); MEAN PLATELET VOLUME 10.2 FL (7.4-10.4); MONOCYTES # (AUTO) 0.5 X 10^3 (0.0-1.0); MONOCYTES % (AUTO) 9 % (0-12); NEUTROPHILS # (AUTO) 2.4 X 10^3 (1.8-7.8); NEUTROPHILS % (AUTO) 44 % (42-75); PLATELET COUNT 334 10^3/uL (130-400); RED CELL DISTRIBUTION WIDTH 13.7 % (10.0-14.5); WHITE BLOOD COUNT 5.3 10^3/uL (4.3-11.0)
[2018-09-15 06:41] LABS: ALANINE AMINOTRANSFERASE 28 U/L (0-55); ALBUMIN 3.5 GM/DL (3.2-4.5); ALKALINE PHOSPHATASE 100 U/L (40-136); BILIRUBIN,TOTAL 0.2 MG/DL (0.1-1.0); BUN/CREATININE RATIO 20; CALCIUM 9.4 MG/DL (8.5-10.1); CARBON DIOXIDE 25 MMOL/L (21-32); CHLORIDE 104 MMOL/L (98-107); CREATININE SERUM 0.83 MG/DL (0.60-1.30); GFR ESTIMATED > 60; GLUCOSE 94 MG/DL (70-105); POTASSIUM 3.9 MMOL/L (3.6-5.0); SODIUM 138 MMOL/L (135-145); TOTAL PROTEIN 6.5 GM/DL (6.4-8.2)
[2018-09-15] MEDS: KCL 20 MEQ TAB (K-DUR) PO SCH (07:01)
[2018-09-15] MEDS: AUGMENTIN 875 MG TAB (AMOXICILLIN/CLAVULANATE) PO SCH ×2 (07:01→17:46)
[2018-09-15] MEDS: PANTOPRAZOLE 20 MG TABLET (PROTONIX) PO SCH (07:01)
[2018-09-15] MEDS: RT-ALBUTEROL/IPRATROPIUM 3 ML (DUONEB) VIAL INH SCH ×2 (07:31→19:29)
[2018-09-15 08:59] VITALS: BP 138/71
[2018-09-15] MEDS: GABAPENTIN 300 MG (NEURONTIN) CAP PO SCH ×3 (09:00→20:13)
[2018-09-15] MEDS: ASPIRIN E.C. 325 MG (ECOTRIN) TABLET PO SCH (09:00)
[2018-09-15] MEDS: PARoxetine 20 MG (PAXIL) TAB PO SCH (09:00)
[2018-09-15] MEDS: TAMSULOSIN 0.4 MG (FLOMAX) CAP PO SCH (09:00)
[2018-09-15] MEDS: LORATADINE (CLARITIN) 10 MG TAB PO SCH (09:00)
[2018-09-15] MEDS: amLODIPine 10 MG (NORVASC) TAB PO SCH (09:00)
[2018-09-15] MEDS: FERROUS SULF 325 MG (IRON) TAB PO SCH (09:01)
[2018-09-15] MEDS: ARTIFICAL TEARS 0.4 ML UNIT DOSE (REFRESH PLUS) OU PRN ×2 (09:01→17:46)
[2018-09-15] MEDS: VILANTEROL IH SCH (09:02)
[2018-09-15] MEDS: UMECLIDINIUM IH SCH (09:02)
--- NOTE | 2018-09-15 10:46 | PM&R Progress Note ---
Subjective HPI/CC On Admission Date Seen by Provider: September 15, 2018 Time Seen by Provider: 10:45 Chief complaint: Debility HPI: This is a 77yoWM clinic Pt of Dr. Paredes who presented 5 days ago from the ER with pneumonia dysphagia and dehydration. He was having nausea and vomiting and diarrhea, became very dehydrated and very debilitated and presented to the ER placed on aggressive IV fluids and antibiotics for pneumonia and at this current time, Pt is feeling much better but very weak. He does live alone and is very active in his community serving on the [employer] and volunteering at the [employer]. His prior level of functioning was independent with ADLs and ambulation. He was generalized very weak in all extremities and a major fall risk. The goal will be to return back home at the completion of inpatient rehab course. Subjective/Events-last exam Pt doing very well. Participating in all therapies. Getting stronger by the day. Wants to go home soon and I told him we would obtain PT evaluation tomorrow to see when he can safely DC Bowels are moving 4 x yesterday Has no concerns about his overall status Probiotic will be started Conferred with RN. Reviewed therapy notes. Completing antibiotics for pneumonia with Augmentin. Last day 09/18/18 Review of Systems General: Fatigue Objective Exam Vital Signs Vital Signs Date Time Temp Pulse Resp B/P (MAP) Pulse Ox O2 Delivery O2 Flow Rate FiO2 09/15/18 08:59 93 138/71 (93) 09/15/18 07:31 92 Room Air 09/15/18 05:05 98.0 16 Capillary Refill : General Appearance: No Apparent Distress, WD/WN, Chronically ill, Thin HEENT: PERRL/EOMI, TMs Normal, Normal ENT Inspection, Pharynx Normal, Moist Mucous Membranes Neck: Full Range of Motion, Normal Inspection, Non Tender, Supple Respiratory: Chest Non Tender, Lungs Clear, Normal Breath Sounds, No Accessory Muscle Use, No Respiratory Distress, Decreased Breath Sounds Cardiovascular: Regular Rate, Rhythm, No Edema, No Gallop, No JVD, No Murmur Gastrointestinal: Normal Bowel Sounds, No Organomegaly, No Pulsatile Mass, Non Tender, Soft Back: Normal Inspection, No CVA Tenderness, No Vertebral Tenderness Extremity: Normal Capillary Refill, Normal Inspection, Normal Range of Motion, Non Tender, No Calf Tenderness, No Pedal Edema Neurologic/Psychiatric: Alert, Oriented x3, No Motor/Sensory Deficits (generalized weakness all extremities), Normal Mood/Affect Skin: Normal Color, Warm/Dry Lymphatic: No Adenopathy Results/Procedures Lab Laboratory Tests 09/15/18 05:41 Patient resulted labs reviewed. FIM Transfers Therapy Code Descriptions/Definitions Functional [place] Measure: 0=Not Assessed/NA 4=Minimal Assistance 1=Total Assistance 5=Supervision or Setup 2=Maximal Assistance 6=Modified [place] 3=Moderate Assistance 7=Complete [place] Therapy Quality Codes: 6 Independent with activity with or without an assistive device 5 Patient requires set up or clean up by helper. Patient completes activity by themselves 4 Supervision or touching assist (CGA). [place] provide cues , steadying assist 3 The helper provides less than half the effort to complete the activity 2 The helper provides more than half the effort to complete the activity 1 Dependent. The helper does all the effort to complete an activity 7 Patient refused to complete or attempt activity 9 The patient did not perform the activity before the current illness or injury 88 Not attempted due to Medical conditions or safety concerns Transfers (B, C, W/C) (FIM): 5 Scootin Rollin Roll Left to Right (QC): 4 Supine to/from Sit: 5 Sit to/from Stand: 5 Sit to Lying (QC): 4 Sit to Stand (QC): 3 Chair/Niz-zr-Kdzmm Xfer(QC): 4 Car Transfer (QC): 3 Gait Training Does the Patient Walk?: Yes Gait (FIM): 5 Distance (FIM): 3=150 ft Distance: 250, 500 Walk 10 feet (QC): 4 Walk 50 ft with 2 Turns(QC): 4 Walk 150 ft (QC): 4 Walking 10ft/uneven surface-QC: 4 Gait Level of Assist: 5 Gait Persons Needed: 1 Gait Assistive Device: FWW Wheelchair Training Does the Pt Use a Wheelchair?: No Stair Training Stair Training: Handrails/: 1 handrail (turns sideways with BUE's on handrail) Stairs (FIM): 2 #of Steps: 3 (descending) 1 Step (curb) (QC): 4 Stairs: Pattern: Step to Level of Assist: 4 (CGA provided for safety) Mental Status/Objective Comprehension: 5 Expression: 5 Social Interaction: 6 Problem Solvin Memory: 4 (Pt. does exhibit some memory issues and often will repeat himself.) ADL-Treatment Feedin Eating (QC): 5 Groomin Oral Hygiene (QC): 4 Bathin Shower/Bathe Self (QC): 3 Upper Extremity Dressin Upper Body Dressing (QC): 5 Lower Extremity Dressin Lower Body Dressing (QC): 3 On/Off Footwear (QC): 3 Toiletin (Pt. incontinent of urine on way to bathroom with brief. Pt. able to pull down brief in bathroom.) Toileting Hygiene (QC): 2 Toilet/Commode Transfer: 4 Toilet Transfer (QC): 4 Shower: 4 Assessment/Plan Assessment and Plan Assess & Plan/Chief Complaint Assessment: Debility Pneumonia Lung cancer hx HTN Neuropathy TBI hx Depression GERD Chronic pain Plan: IRF protocol Increase strengthening and safety for fall risk prevention Return home for independent living Complete abx 09/18/18 Probiotic (1) Debility (2) RESPIRATORY FAILURE, UNSP, UNSP W HYPOXIA OR HYPERCAPNIA (3) Lung cancer (4) Chronic pain (5) Essential (primary) hypertension (6) TBI (traumatic brain injury) (7) Anemia (8) Elevated brain natriuretic peptide (BNP) level (9) Confusion Resolution Date/Time: 09/08/18 @ 10:31 (10) Nausea and vomiting BEBETO OLIVAREZ DO September 15, 2018 10:46
[2018-09-15] MEDS: LACTOBACILLUS ACIDOPHILUS (PROBIOTIC) CAPSULE PO SCH ×2 (12:32→17:46)
[2018-09-15 17:46] VITALS: BP 133/88
[2018-09-15] MEDS: ARTIFICIAL TEARS OINT (LACRI-LUBE) 3.5 GM TUBE OU SCH (20:14)
[2018-09-16 05:51] VITALS: BP 140/71
[2018-09-16] MEDS: LACTOBACILLUS ACIDOPHILUS (PROBIOTIC) CAPSULE PO SCH ×3 (06:17→17:06)
[2018-09-16] MEDS: PANTOPRAZOLE 20 MG TABLET (PROTONIX) PO SCH (06:17)
[2018-09-16] MEDS: KCL 20 MEQ TAB (K-DUR) PO SCH (06:17)
[2018-09-16] MEDS: AUGMENTIN 875 MG TAB (AMOXICILLIN/CLAVULANATE) PO SCH ×2 (06:17→17:06)
[2018-09-16 08:00] VITALS: BP 109/49
--- NOTE | 2018-09-16 08:00 | NUR ---
STATES SLEPT GOOD. DENIES ANY DIFFICULTY IN SWALLOWING. DENIES ANY SOB. RIGHT FOOT NEUROPATHY PAIN CONTROLLED WITH PAIN PATCH.
[2018-09-16] MEDS: TAMSULOSIN 0.4 MG (FLOMAX) CAP PO SCH (09:08)
[2018-09-16] MEDS: FERROUS SULF 325 MG (IRON) TAB PO SCH (09:08)
[2018-09-16] MEDS: amLODIPine 10 MG (NORVASC) TAB PO SCH (09:08)
[2018-09-16] MEDS: PARoxetine 20 MG (PAXIL) TAB PO SCH (09:08)
[2018-09-16] MEDS: GABAPENTIN 300 MG (NEURONTIN) CAP PO SCH ×3 (09:08→20:58)
[2018-09-16] MEDS: LORATADINE (CLARITIN) 10 MG TAB PO SCH (09:08)
[2018-09-16] MEDS: ASPIRIN E.C. 325 MG (ECOTRIN) TABLET PO SCH (09:09)
--- NOTE | 2018-09-16 09:28 | Speech Therapy Daily Note ---
Speech Daily Progress Note Subjective Date Seen by Provider: September 16, 2018 Time Seen by Provider: 00:30 The patient was resting in bed when I entered. He stated he had breakfast early and was waiting on getting his shower. Objective The patient completed memory tasks related to himself and his daily needs with 80% accuracy given minimal verbal cue. Assessment Assessment Current Status: Good Progress Treatment Plan Continue Plan of Care Communication Comprehension: 5 Expression: 5 Social Cognition Social Interaction: 6 Problem Solvin Memory: 4 (Pt. does exhibit some memory issues and often will repeat himself.) Speech Short Term Goals Short Term Goals Short Term Goals 1) The patient will complete memory tasks related to himself and daily needs with 90% or greater given minimal verbal cues. 12 The patient will complete problem solving tasks related to himself and daily needs with 90% or greater given minimal verbal cues. Speech Usp Goals Usp Goals The patient will improve his cognitive function in order to return home safely. Speech-Plan Patient/Family Goals Patient/Family Goals: The patient plans on returning home alone with family support post rehab. Treatment Plan Speech Therapy Treatment Plan: Continue Plan of Care The patient is progressing well as a result of skilled ST services. Treatment Duration: September 20, 2018 Frequency: 5 times per week Estimated Hrs Per Day: .5 hour per day Rehab Potential: Good Barriers to Learning: Patient is recovering from serious illness. Pt/Family Agrees to Plan: Yes Safety Risks/Education Teaching Recipient: Patient Teaching Methods: Discussion Response to Teaching: Verbalize Understanding Education Topics Provided: The patient's continued safety. Time Speech Therapy Time In: 08:30 Speech Therapy Time Out: 09:00 Total Billed Time: 30 Billed Treatment Time [address] September 16, 2018 09:28
[2018-09-16] MEDS: UMECLIDINIUM IH SCH (09:41)
[2018-09-16] MEDS: VILANTEROL IH SCH (09:41)
--- NOTE | 2018-09-16 10:38 | Occupational Ther Daily Note ---
OT Current Status-Daily Note Subjective Pt in bed, agrees to treatment. Pt reports pain in right foot. Mental Status/Objective Therapy Code Descriptions/Definitions Functional [place] Measure: 0=Not Assessed/NA 4=Minimal Assistance 1=Total Assistance 5=Supervision or Setup 2=Maximal Assistance 6=Modified [place] 3=Moderate Assistance 7=Complete [place] ADL-Treatment Supine to sit with SBA. Sit to stand with supervision. Gait to restroom with FWW. Transfer to toilet with CGA. Pt able to complete toileting with CGA for balance during clothing management. Transfer to walk in shower with CGA using grab bars for safety. Bathing completed using hand held shower. Upper body bathing completed with SBA. Pt required CGA for standing balance while washing buttocks. Don pullover shirt with set up. Pt able to thread bilateral LE into Depends and pant legs with SBA. Stood with CGA for balance when completing pant hike. Don bilateral socks with SBA. Pt completed grooming tasks while standing at sink. Pt brushed teeth and combed hair with SBA. Pt shaved using electric razor with set up while seated. Pt sitting in chair with needs met after session. Therapy Code Descriptions/Definitions Functional [place] Measure: 0=Not Assessed/NA 4=Minimal Assistance 1=Total Assistance 5=Supervision or Setup 2=Maximal Assistance 6=Modified [place] 3=Moderate Assistance 7=Complete [place] Therapy Quality Codes: 6 Independent with activity with or without an assistive device 5 Patient requires set up or clean up by helper. Patient completes activity by themselves 4 Supervision or touching assist (CGA). [place] provide cues , steadying assist 3 The helper provides less than half the effort to complete the activity 2 The helper provides more than half the effort to complete the activity 1 Dependent. The helper does all the effort to complete an activity 7 Patient refused to complete or attempt activity 9 The patient did not perform the activity before the current illness or injury 88 Not attempted due to Medical conditions or safety concerns Grooming (FIM): 5 Oral Hygiene (QC): 4 Bathing (FIM): 4 Shower/Bathe Self (QC): 4 Upper Body (FIM): 5 Upper Body Dressing (QC): 5 Lower Body Dressing (FIM): 4 (CGA) Lower Body Dressing (QC): 4 On/Off Footwear (QC): 4 Toileting (FIM): 4 (CGA) Toileting Hygiene (QC): 4 Toilet/Commode Transfer (FIM): 4 (CGA) Toilet Transfer (QC): 4 Shower Transfer(FIM): 4 (CGA) OT Short Term Goals Short Term Goals Transfers (B,C,W/C) (FIM): 5 1=Demonstrate adherence to instructed precautions during ADL tasks. 2=Patient will verbalize/demonstrate understanding of assistive devices/modifications for ADL. 3=Patient will improve strength/tolerance for activity to enable patient to perform ADL's. OT Clam Shovel Operator Goals Clam Shovel Operator Goals Time Frame: Sep 25, 2018 Eating (FIM): 6 Eating (QC): 6 Groomin Oral Hygiene (QC): 6 Bathing(FIM): 5 Shower/Bathe Self (QC): 6 Upper Body Dressing(FIM): 6 Upper Body Dressing (QC): 6 Lower Body Dressing(FIM): 6 Lower Body Dressing (QC): 6 On/Off Footwear (QC): 6 Toileting(FIM): 6 Toileting Hygiene (QC): 6 Transfers (B,C,W/C) (FIM): 6 Toilet/Commode Transfer(FIM): 6 Toilet/Commode Transfer (QC): 6 Shower Transfer(FIM): 5 Additional Goals: 1-Demonstrate ADL Tasks, 2-Verbalize Understanding, 3- ImproveStrength/Herrera 1=Demonstrate adherence to instructed precautions during ADL tasks. 2=Patient will verbalize/demonstrate understanding of assistive devices/modifications for ADL. 3=Patient will improve strength/tolerance for activity to enable patient to perform ADL's. OT Education/Plan Discharge Recommendations Plan/Recommendations: Continue POC Treatment Plan/Plan of Care Patient would benefit from OT for education, treatment and training to promote independence in ADL's, mobility, safety and/or upper extremity function for ADL's. Plan of Care: ADL Retraining, Functional Mobility, Group Exercise/Act as Ind, UE Funct Exercise/Act Treatment Duration: Sep 25, 2018 Frequency: At least 5 of 7 days/Wk (IRF) Estimated Hrs Per Day: 1.5 hours per day Agreement: Yes Rehab Potential: Good Time/GCodes Start Time: 09:45 Stop Time: 10:30 Total Time Billed (hr/min): 45 Billed Treatment Time 1 visit, ADLx3(45minutes) BARNEY GRECO OT September 16, 2018 10:38
[2018-09-16] MEDS: ARTIFICAL TEARS 0.4 ML UNIT DOSE (REFRESH PLUS) OU PRN ×2 (10:51→13:47)
--- NOTE | 2018-09-16 11:18 | PM&R Progress Note ---
Subjective HPI/CC On Admission Date Seen by Provider: September 16, 2018 Time Seen by Provider: 11:30 Chief complaint: Debility HPI: This is a 77yoWM clinic Pt of Dr. Paredes who presented 5 days ago from the ER with pneumonia dysphagia and dehydration. He was having nausea and vomiting and diarrhea, became very dehydrated and very debilitated and presented to the ER placed on aggressive IV fluids and antibiotics for pneumonia and at this current time, Pt is feeling much better but very weak. He does live alone and is very active in his community serving on the [place] and volunteering at the [employer]. His prior level of functioning was independent with ADLs and ambulation. He was generalized very weak in all extremities and a major fall risk. The goal will be to return back home at the completion of inpatient rehab course. Subjective/Events-last exam Pt doing very well. Participating in all therapies and I conferred with PT and they think he could likely go home later this week so that is what I told him Getting stronger by the day. Bowels are moving well, started probiotic to minimize loose stools on abx Has no concerns about his overall status Conferred with RN. Reviewed therapy notes. Neuropathy in right foot no significant changes Incontinence since prostate surgery has no resolution Completing antibiotics for pneumonia with Augmentin. Last day 09/18/18 Review of Systems General: Fatigue Objective Exam Vital Signs Vital Signs Date Time Temp Pulse Resp B/P (MAP) Pulse Ox O2 Delivery O2 Flow Rate FiO2 09/16/18 17:08 98.3 74 16 146/70 (95) 94 Room Air 09/16/18 05:52 21 Capillary Refill : General Appearance: No Apparent Distress, WD/WN, Chronically ill, Thin HEENT: PERRL/EOMI, TMs Normal, Normal ENT Inspection, Pharynx Normal, Moist Mucous Membranes Neck: Full Range of Motion, Normal Inspection, Non Tender, Supple Respiratory: Chest Non Tender, Lungs Clear, Normal Breath Sounds, No Accessory Muscle Use, No Respiratory Distress, Decreased Breath Sounds Cardiovascular: Regular Rate, Rhythm, No Edema, No Gallop, No JVD, No Murmur Gastrointestinal: Normal Bowel Sounds, No Organomegaly, No Pulsatile Mass, Non Tender, Soft Back: Normal Inspection, No CVA Tenderness, No Vertebral Tenderness Extremity: Normal Capillary Refill, Normal Inspection, Normal Range of Motion, Non Tender, No Calf Tenderness, No Pedal Edema Neurologic/Psychiatric: Alert, Oriented x3, No Motor/Sensory Deficits (gene ralized weakness all extremities), Normal Mood/Affect Skin: Normal Color, Warm/Dry Lymphatic: No Adenopathy Results/Procedures Lab Patient resulted labs reviewed. FIM Transfers Therapy Code Descriptions/Definitions Functional [place] Measure: 0=Not Assessed/NA 4=Minimal Assistance 1=Total Assistance 5=Supervision or Setup 2=Maximal Assistance 6=Modified [place] 3=Moderate Assistance 7=Complete [place] Therapy Quality Codes: 6 Independent with activity with or without an assistive device 5 Patient requires set up or clean up by helper. Patient completes activity by themselves 4 Supervision or touching assist (CGA). [place] provide cues , steadying assist 3 The helper provides less than half the effort to complete the activity 2 The helper provides more than half the effort to complete the activity 1 Dependent. The helper does all the effort to complete an activity 7 Patient refused to complete or attempt activity 9 The patient did not perform the activity before the current illness or injury 88 Not attempted due to Medical conditions or safety concerns Transfers (B, C, W/C) (FIM): 5 Scootin Rollin Roll Left to Right (QC): 4 Supine to/from Sit: 5 Sit to/from Stand: 5 Sit to Lying (QC): 4 Sit to Stand (QC): 3 Chair/Ibf-xn-Uolmg Xfer(QC): 4 Car Transfer (QC): 3 Gait Training Does the Patient Walk?: Yes Gait (FIM): 5 Distance (FIM): 3=150 ft Distance: 250, 500 Walk 10 feet (QC): 4 Walk 50 ft with 2 Turns(QC): 4 Walk 150 ft (QC): 4 Walking 10ft/uneven surface-QC: 4 Gait Level of Assist: 5 Gait Persons Needed: 1 Gait Assistive Device: FWW Wheelchair Training Does the Pt Use a Wheelchair?: No Stair Training Stair Training: Handrails/: 1 handrail (turns sideways with BUE's on handrail) Stairs (FIM): 2 #of Steps: 3 (descending) 1 Step (curb) (QC): 4 Stairs: Pattern: Step to Level of Assist: 4 (CGA provided for safety) Mental Status/Objective Comprehension: 5 Expression: 5 Social Interaction: 6 Problem Solvin Memory: 4 (Pt. does exhibit some memory issues and often will repeat himself.) ADL-Treatment Feedin Eating (QC): 5 Groomin Oral Hygiene (QC): 4 Bathin Shower/Bathe Self (QC): 4 Upper Extremity Dressin Upper Body Dressing (QC): 5 Lower Extremity Dressin (CGA) Lower Body Dressing (QC): 4 On/Off Footwear (QC): 4 Toiletin (CGA) Toileting Hygiene (QC): 4 Toilet/Commode Transfer: 4 (CGA) Toilet Transfer (QC): 4 Shower: 4 (CGA) Assessment/Plan Assessment and Plan Assess & Plan/Chief Complaint Assessment: Debility Pneumonia Lung cancer hx HTN Neuropathy TBI hx Depression GERD Chronic pain Chronic incontinence Plan: IRF protocol Increase strengthening and safety for fall risk prevention Return home for independent living Complete abx 09/18/18 Incontinence care Probiotic Later this week DC likely (1) Debility (2) RESPIRATORY FAILURE, UNSP, UNSP W HYPOXIA OR HYPERCAPNIA (3) Lung cancer (4) Chronic pain (5) Essential (primary) hypertension (6) TBI (traumatic brain injury) (7) Anemia (8) Elevated brain natriuretic peptide (BNP) level (9) Confusion Resolution Date/Time: 09/08/18 @ 10:31 (10) Nausea and vomiting (11) H/O prostatectomy (12) Urinary incontinence BEBETO OLIVAREZ DO September 16, 2018 11:17
--- NOTE | 2018-09-16 11:54 | Physical Therapy Daily Note ---
PT Daily Note-Current Subjective Agrees to PT. Reports he feels stronger and steadier. Reports he is feeling closer to being ready to go home. Pain Numeric Pain Scale: 0-No Pain Mental Status Patient Orientation: Person, Place, Time, Situation Transfers Therapy Code Descriptions/Definitions Functional [place] Measure: 0=Not Assessed/NA 4=Minimal Assistance 1=Total Assistance 5=Supervision or Setup 2=Maximal Assistance 6=Modified [place] 3=Moderate Assistance 7=Complete [place] Therapy Quality Codes: 6 Independent with activity with or without an assistive device 5 Patient requires set up or clean up by helper. Patient completes activity by themselves 4 Supervision or touching assist (CGA). [place] provide cues , steadying assist 3 The helper provides less than half the effort to complete the activity 2 The helper provides more than half the effort to complete the activity 1 Dependent. The helper does all the effort to complete an activity 7 Patient refused to complete or attempt activity 9 The patient did not perform the activity before the current illness or injury 88 Not attempted due to Medical conditions or safety concerns Transfers (B, C, W/C) (FIM): 5 Sit to/from Stand: 5 multiple sit to stand transfers performed during treatment from various surfaces with SBA. Sit to stand 2X 5 from standard chair with correct sequencing and hand placment, no verbal cues required. Gait Training Does the Patient Walk?: Yes Gait (FIM): 5 Distance (FIM): 3=150 ft Distance: 150 ft x 2; 200 ft x 2; 50 ft x 1 Gait Assistive Device: FWW pt tends to walk on the balls of his feet with decreased heel strike and toe off but feel this is longstanding. Steady with gait without noted LOB episodes and only required SBA . Stair Training Stair Training: Handrails/: 2 handrails Stairs (FIM): 5 Stairs: Pattern: Step to up / down 4 steps x 2 reps with handrail with SBA Exercises NuStep Minutes: 15 NuStep Workload: 5 (to promote LE strength and functional activity tolerance for functional safety in his home.) Assessment Current Status: Excellent Progress Pt is making functional gains towards goals and his balance and safety are improving. Only required SBA with all mobiltiy this date. PT Short Term Goals Short Term Goals Time Frame: September 18, 2018 Transfers (B,C,W/C) (FIM): 5 (met) Gait (FIM): 5 (met) Gait Distance Comment: 200' Gait Level of Assist: 5 Gait Assistive Device: FWW PT Mexican Food Cook Goals Mexican Food Cook Goals PT Retirement Goals Time Frame: Oct 02, 2018 Transfers (B,C,W/C) (FIM): 6 Sit to Lying (QC): 6 Lying-Sitting on Side/Bed(QC): 6 Sit to Stand (QC): 6 Rollin Roll Left to Right (QC): 6 Chair/Onr-px-Vdnqq Xfer(QC): 6 Car Transfer (QC): 6 Gait (FIM): 6 Distance: 400' Walk 10 feet (QC): 6 Walk 10ft-Uneven Surface(QC): 6 Walk 50ft with 2 Turns (QC): 6 Walk 150 ft (QC): 6 Gait Level of Assist: 6 Gait Assistive Device: FWW Stairs (FIM): 2 # of Steps: 4 1 Step (curb) (QC): 4 4 Steps (QC): 4 Stairs Level Of Assist: 5 PT Plan Problem List Problem List: Activity Tolerance, Functional Strength, Safety, Balance, Gait, Transfer, Bed Mobility Treatment/Plan Treatment Plan: Continue Plan of Care Treatment Plan: Bed Mobility, Education, Functional Activity Herrera, Functional Strength, Group Therapy, Gait, Safety, Therapeutic Exercise, Transfers Treatment Duration: Oct 02, 2018 Frequency: At least 5 of 7 days/Wk (IRF) Estimated Hrs Per Day: 1.5 hours per day Patient and/or Family Agrees t: Yes Safety Risks/Education Patient Education: Safety Issues Teaching Recipient: Patient Teaching Methods: Discussion Response to Teaching: Return Demonstration Discharge Recommendations Therapy D/C Recommendations: Physical Therapy Outpatient (pt reports he would like to follow with outpt PT at [facility]) Time/GCodes Time In: 1100 Time Out: 1153 Total Billed Treatment Time: 53 Total Billed Treatment visit GT 30 EX 23 GERMAIN GUZMAN PT September 16, 2018 11:53
--- NOTE | 2018-09-16 14:03 | Therapy Group Daily Note ---
Therapy Daily Group Note Patient Education Topic Home Safety, Energy Cons, Exercises, ADL Exercises LE Seated Exercise, LE Standing Exercise, Balance, Sit to/from Stand, ROM, Stretching, UE Exercise Session Ratio (pt:therapist): 4:1 Goal of Session: Education on ARU Expectations, Energy Conservation Tech., UE/LE Strengthing Goal Met for this Session: Yes Pt Benefit of Group: Contributions to Others, Increased Functional Safety, Increased Functional Strength, Recognition of Peers, Socialization Other/Notes Pt ambulate with CGA to [facility] area for OT/PT group. Group consisted of introductions (name, what traditions do you do for Memorable day), socialization, ARU description, energy conservation techniques, and UE/ LE strengthening ex. Pt introduced self appropriately and actively listened to peers. Pt acknowledged understanding of ARU description. Pt was able to give description of personal memory and contribute to discussion. pt given 2 handouts on energy conservation. One handout consist of the "4P's" of energy conservation, and second handout is examples of energy conservation within ADLs. pt was able to give examples of how to use these learn techniques within his everyday life. pt then demo ability to roll dice and complete exercises to increase activity tolerance and UE/ LE strength with peer. pt perform against gravity: Hip ADD/ABD, toe raises, elbow flex/ EXT, wrist Flex/ ext, hip flex/ EXt, shoulder flex/ ext, and cervical rotation. pt demo ability to utilized trained energy conservation techniques within task. After therapy, pt sitting in recliner chair with call light/phone in reach. All needs met in room. Start Time: 12:30 Stop Time: 13:45 Total Billed Treatment GRP 75 minutes MICHELLE TINSLEY OT September 16, 2018 14:03
[2018-09-16 17:08] VITALS: BP 146/70
[2018-09-16] MEDS: fentaNYL PATCH 100 MCG (DURAGESIC) TD SCH (18:08)
[2018-09-16] MEDS: FENTANYL 100 MCG PATCH REMOVAL TP SCH (18:08)
--- NOTE | 2018-09-16 19:19 | NUR ---
bedside report received from STEPHANIE MARION, assume care of pt
[2018-09-16] MEDS: ARTIFICIAL TEARS OINT (LACRI-LUBE) 3.5 GM TUBE OU SCH (20:57)
--- NOTE | 2018-09-16 21:00 | NUR ---
assessments & interventions completed, see assessments & interventions, up to bathroom with 1 person assist & walker
[2018-09-17 05:12] VITALS: BP 146/63
[2018-09-17] MEDS: AUGMENTIN 875 MG TAB (AMOXICILLIN/CLAVULANATE) PO SCH ×2 (07:01→16:59)
[2018-09-17] MEDS: LACTOBACILLUS ACIDOPHILUS (PROBIOTIC) CAPSULE PO SCH ×3 (07:01→16:58)
[2018-09-17] MEDS: KCL 20 MEQ TAB (K-DUR) PO SCH (07:01)
[2018-09-17] MEDS: PANTOPRAZOLE 20 MG TABLET (PROTONIX) PO SCH (07:01)
--- NOTE | 2018-09-17 07:29 | NUR ---
bedside report given to ALANNA MARION
--- NOTE | 2018-09-17 08:58 | PM&R Progress Note ---
Subjective HPI/CC On Admission Date Seen by Provider: September 17, 2018 Time Seen by Provider: 09:00 Chief complaint: Debility HPI: This is a 77yoWM clinic Pt of Dr. Paredes who presented 5 days ago from the ER with pneumonia dysphagia and dehydration. He was having nausea and vomiting and diarrhea, became very dehydrated and very debilitated and presented to the ER placed on aggressive IV fluids and antibiotics for pneumonia and at this current time, Pt is feeling much better but very weak. He does live alone and is very active in his community serving on the [place] and volunteering at the [employer]. His prior level of functioning was independent with ADLs and ambulation. He was generalized very weak in all extremities and a major fall risk. The goal will be to return back home at the completion of inpatient rehab course. Subjective/Events-last exam Pt participating in therapy very well. Walking with a walker. Safety management and fall prevention discussed. Bowels are moving, a little bit loose but I did start a probiotic with the Augmentin, last day is tomorrow. Lungs remain clear. Does not require oxygen. No pain is otherwise reported. Conferred with RN. Reviewed therapy notes. Neuropathy in right foot no significant changes Incontinence since prostate surgery has no resolution Completing antibiotics for pneumonia with Augmentin. Last day 09/18/18 Review of Systems General: Fatigue Musculoskeletal: leg pain Objective Exam Vital Signs Vital Signs Date Time Temp Pulse Resp B/P (MAP) Pulse Ox O2 Delivery O2 Flow Rate FiO2 09/17/18 09:00 Room Air 09/17/18 05:12 98.0 68 20 146/63 (90) 97 09/16/18 05:52 21 Capillary Refill : General Appearance: No Apparent Distress, WD/WN, Chronically ill, Thin HEENT: PERRL/EOMI, TMs Normal, Normal ENT Inspection, Pharynx Normal, Moist Mucous Membranes Neck: Full Range of Motion, Normal Inspection, Non Tender, Supple Respiratory: Chest Non Tender, Lungs Clear, Normal Breath Sounds, No Accessory Muscle Use, No Respiratory Distress, Decreased Breath Sounds Cardiovascular: Regular Rate, Rhythm, No Edema, No Gallop, No JVD, No Murmur Gastrointestinal: Normal Bowel Sounds, No Organomegaly, No Pulsatile Mass, Non Tender, Soft Back: Normal Inspection, No CVA Tenderness, No Vertebral Tenderness Extremity: Normal Capillary Refill, Normal Inspection, Normal Range of Motion, Non Tender, No Calf Tenderness, No Pedal Edema Neurologic/Psychiatric: Alert, Oriented x3, No Motor/Sensory Deficits (generalized weakness all extremities), Normal Mood/Affect Skin: Normal Color, Warm/Dry Lymphatic: No Adenopathy Results/Procedures Lab Patient resulted labs reviewed. FIM Transfers Therapy Code Descriptions/Definitions Functional [place] Measure: 0=Not Assessed/NA 4=Minimal Assistance 1=Total Assistance 5=Supervision or Setup 2=Maximal Assistance 6=Modified [place] 3=Moderate Assistance 7=Complete [place] Therapy Quality Codes: 6 Independent with activity with or without an assistive device 5 Patient requires set up or clean up by helper. Patient completes activity by themselves 4 Supervision or touching assist (CGA). [place] provide cues , steadying assist 3 The helper provides less than half the effort to complete the activity 2 The helper provides more than half the effort to complete the activity 1 Dependent. The helper does all the effort to complete an activity 7 Patient refused to complete or attempt activity 9 The patient did not perform the activity before the current illness or injury 88 Not attempted due to Medical conditions or safety concerns Transfers (B, C, W/C) (FIM): 5 Scootin Rollin Roll Left to Right (QC): 4 Supine to/from Sit: 5 Sit to/from Stand: 5 Sit to Lying (QC): 4 Sit to Stand (QC): 3 Chair/Ugb-zg-Iwhgx Xfer(QC): 4 Car Transfer (QC): 3 Gait Training Does the Patient Walk?: Yes Gait (FIM): 5 Distance (FIM): 3=150 ft Distance: 150 ft x 2; 200 ft x 2; 50 ft x 1 Walk 10 feet (QC): 4 Walk 50 ft with 2 Turns(QC): 4 Walk 150 ft (QC): 4 Walking 10ft/uneven surface-QC: 4 Gait Level of Assist: 5 Gait Persons Needed: 1 Gait Assistive Device: FWW Wheelchair Training Does the Pt Use a Wheelchair?: No Stair Training Stair Training: Handrails/: 2 handrails Stairs (FIM): 5 #of Steps: 3 (descending) 1 Step (curb) (QC): 4 Stairs: Pattern: Step to Level of Assist: 4 (CGA provided for safety) Mental Status/Objective Comprehension: 5 Expression: 5 Social Interaction: 6 Problem Solvin Memory: 4 (Pt. does exhibit some memory issues and often will repeat himself.) ADL-Treatment Feedin Eating (QC): 5 Groomin Oral Hygiene (QC): 4 Bathin Shower/Bathe Self (QC): 4 Upper Extremity Dressin Upper Body Dressing (QC): 5 Lower Extremity Dressin (CGA) Lower Body Dressing (QC): 4 On/Off Footwear (QC): 4 Toiletin (CGA) Toileting Hygiene (QC): 4 Toilet/Commode Transfer: 4 (CGA) Toilet Transfer (QC): 4 Shower: 4 (CGA) Assessment/Plan Assessment and Plan Assess & Plan/Chief Complaint Assessment: Debility Pneumonia Lung cancer hx HTN Neuropathy TBI hx Depression GERD Chronic pain Chronic incontinence Plan: IRF protocol Increase strengthening and safety for fall risk prevention Return home for independent living Complete abx 09/18/18 Incontinence care Probiotic Later this week DC likely (1) Debility (2) RESPIRATORY FAILURE, UNSP, UNSP W HYPOXIA OR HYPERCAPNIA (3) Lung cancer (4) Chronic pain (5) Essential (primary) hypertension (6) TBI (traumatic brain injury) (7) Anemia (8) Elevated brain natriuretic peptide (BNP) level (9) Confusion Resolution Date/Time: 09/08/18 @ 10:31 (10) Nausea and vomiting (11) H/O prostatectomy (12) Urinary incontinence BEBETO OLIVAREZ DO September 17, 2018 08:58
[2018-09-17] MEDS: LORATADINE (CLARITIN) 10 MG TAB PO SCH (09:33)
[2018-09-17] MEDS: FERROUS SULF 325 MG (IRON) TAB PO SCH (09:33)
[2018-09-17] MEDS: TAMSULOSIN 0.4 MG (FLOMAX) CAP PO SCH (09:34)
[2018-09-17] MEDS: amLODIPine 10 MG (NORVASC) TAB PO SCH (09:34)
[2018-09-17] MEDS: ASPIRIN E.C. 325 MG (ECOTRIN) TABLET PO SCH (09:34)
[2018-09-17] MEDS: GABAPENTIN 300 MG (NEURONTIN) CAP PO SCH ×3 (09:34→21:43)
[2018-09-17] MEDS: PARoxetine 20 MG (PAXIL) TAB PO SCH (09:34)
[2018-09-17] MEDS: UMECLIDINIUM IH SCH (09:35)
[2018-09-17] MEDS: VILANTEROL IH SCH (09:35)
[2018-09-17] MEDS: ARTIFICAL TEARS 0.4 ML UNIT DOSE (REFRESH PLUS) OU PRN ×3 (09:49→17:04)
--- NOTE | 2018-09-17 10:18 | Speech Therapy Daily Note ---
Speech Daily Progress Note Subjective Date Seen by Provider: September 17, 2018 Time Seen by Provider: 00:30 The patient was sitting in his chair and interacted well with clinician for skilled session. Objective The patient completed problem solving tasks at 90% with minimal verbal cues and/or redirection. Assessment Assessment Current Status: Good Progress Communication Comprehension: 5 Expression: 5 Social Cognition Social Interaction: 6 Problem Solvin Memory: 4 (Pt. does exhibit some memory issues and often will repeat himself.) Speech Short Term Goals Short Term Goals Short Term Goals 1) The patient will complete memory tasks related to himself and daily needs with 90% or greater given minimal verbal cues. 12 The patient will complete problem solving tasks related to himself and daily needs with 90% or greater given minimal verbal cues. Speech Nurse Prn Goals Skilled Nursing Goals The patient will improve his cognitive function in order to return home safely. Speech-Plan Patient/Family Goals Patient/Family Goals: The patient plans on returning home where he lives alone post rehab. Treatment Plan Speech Therapy Treatment Plan: Continue Plan of Care The patient has made good progress as a result of skilled ST services. Treatment Duration: September 20, 2018 Frequency: 5 times per week Estimated Hrs Per Day: .5 hour per day Rehab Potential: Good Barriers to Learning: Patient has had some confusion, decreased memory and problem solving abilities as a result of his recent illness. His deficits are resolving at this time. Pt/Family Agrees to Plan: Yes Safety Risks/Education Teaching Recipient: Patient Teaching Methods: Discussion Response to Teaching: Verbalize Understanding Education Topics Provided: Continued safety within his room and upon his return home. Time Speech Therapy Time In: 09:30 Speech Therapy Time Out: 10:00 Total Billed Time: 30 Billed Treatment Time [address] September 17, 2018 10:18
--- NOTE | 2018-09-17 10:30 | Occupational Ther Daily Note ---
OT Current Status-Daily Note Subjective Pt sitting in chair, agrees to treatment. Pt reports no pain at this time. Mental Status/Objective Therapy Code Descriptions/Definitions Functional [place] Measure: 0=Not Assessed/NA 4=Minimal Assistance 1=Total Assistance 5=Supervision or Setup 2=Maximal Assistance 6=Modified [place] 3=Moderate Assistance 7=Complete [place] ADL-Treatment Pt sit to stand with supervision. Gait to restroom with FWW. Transfer to toilet with SBA using grab bars for safety. Pt able to complete toileting hygiene and clothing management with SBA. Transfer to walk in shower with close supervision and cues for safety, using grab bars for balance. Bathing completed using hand held shower. Upper body bathing completed with SBA. Pt able to wash lower body, requires CGA for balance while standing to wash buttocks. Don undershirt with set up. Pt donned button up shirt with set up. Able to thread bilateral LE into Depends and pants. Stood with supervision for balance during pant hike. Pt able to don bilateral socks and shoes with SBA. Grooming tasks completed standing at sink. Pt able to complete denture care and comb hair with SBA for balance. Therapy Code Descriptions/Definitions Functional [place] Measure: 0=Not Assessed/NA 4=Minimal Assistance 1=Total Assistance 5=Supervision or Setup 2=Maximal Assistance 6=Modified [place] 3=Moderate Assistance 7=Complete [place] Therapy Quality Codes: 6 Independent with activity with or without an assistive device 5 Patient requires set up or clean up by helper. Patient completes activity by themselves 4 Supervision or touching assist (CGA). [place] provide cues , steadying assist 3 The helper provides less than half the effort to complete the activity 2 The helper provides more than half the effort to complete the activity 1 Dependent. The helper does all the effort to complete an activity 7 Patient refused to complete or attempt activity 9 The patient did not perform the activity before the current illness or injury 88 Not attempted due to Medical conditions or safety concerns Grooming (FIM): 5 Oral Hygiene (QC): 4 Bathing (FIM): 4 (CGA) Shower/Bathe Self (QC): 4 Upper Body (FIM): 5 Upper Body Dressing (QC): 5 Lower Body Dressing (FIM): 5 Lower Body Dressing (QC): 4 On/Off Footwear (QC): 5 Toileting (FIM): 5 Toileting Hygiene (QC): 4 Toilet/Commode Transfer (FIM): 5 Toilet Transfer (QC): 4 Shower Transfer(FIM): 5 Other Treatment Gait to therapy gym with FWW. Arm bike [id number] to increase overall strength and activity tolerance needed for functional task completion. Pt completed task with minimal resistance and steady pace. No rest breaks needed. Pt completed fine motor task with nuts and bolts with 1# weights in place on bilateral UE to increase strength and coordination skills. Activity completed with increased time. Resistance peg activity completed with bilateral UE to increase strength, activity tolerance, and manipulation skills. Putty activity completed with bilateral hands to increase sustainment logistics analyst strength and coordination. Pt able to remove small beads from medium resistance putty. Pt returned to room, sitting in chair with needs met after session. OT Short Term Goals Short Term Goals Transfers (B,C,W/C) (FIM): 5 (met) 1=Demonstrate adherence to instructed precautions during ADL tasks. 2=Patient will verbalize/demonstrate understanding of assistive devices/modifications for ADL. 3=Patient will improve strength/tolerance for activity to enable patient to perform ADL's. OT Assistant Chief Nursing Officer Goals Assistant Chief Nursing Officer Goals Time Frame: Sep 25, 2018 Eating (FIM): 6 Eating (QC): 6 Groomin Oral Hygiene (QC): 6 Bathing(FIM): 5 Shower/Bathe Self (QC): 6 Upper Body Dressing(FIM): 6 Upper Body Dressing (QC): 6 Lower Body Dressing(FIM): 6 Lower Body Dressing (QC): 6 On/Off Footwear (QC): 6 Toileting(FIM): 6 Toileting Hygiene (QC): 6 Transfers (B,C,W/C) (FIM): 6 Toilet/Commode Transfer(FIM): 6 Toilet/Commode Transfer (QC): 6 Shower Transfer(FIM): 5 Additional Goals: 1-Demonstrate ADL Tasks, 2-Verbalize Understanding, 3- ImproveStrength/[place] 1=Demonstrate adherence to instructed precautions during ADL tasks. 2=Patient will verbalize/demonstrate understanding of assistive devices/modifications for ADL. 3=Patient will improve strength/tolerance for activity to enable patient to perform ADL's. OT Education/Plan Discharge Recommendations Plan/Recommendations: Continue POC Treatment Plan/Plan of Care Patient would benefit from OT for education, treatment and training to promote independence in ADL's, mobility, safety and/or upper extremity function for ADL's. Plan of Care: ADL Retraining, Functional Mobility, Group Exercise/Act as Ind, UE Funct Exercise/Act Treatment Duration: Sep 25, 2018 Frequency: At least 5 of 7 days/Wk (IRF) Estimated Hrs Per Day: 1.5 hours per day Agreement: Yes Rehab Potential: Good Time/GCodes Start Time: 08:00 Stop Time: 09:15 Total Time Billed (hr/min): 75 Billed Treatment Time 1 visit, ADLx2(35minutes), EXx3(40minutes) BARNEY GRECO OT September 17, 2018 10:30
--- NOTE | 2018-09-17 10:30 | NUR ---
Pt /c therapy and c/o nausea, stating he has had it all morning. Sprite and crackers given by therapy. He will let RN know if this does not help and he would like to try medication.
--- NOTE | 2018-09-17 11:37 | Physical Therapy Daily Note ---
PT Daily Note-Current Subjective Pt sitting in recliner upon arrival. Pt agrees to PT but reports feeling nauseated this morning. This reported to Nurse. Pain Location: No Pain Reported Mental Status Patient Orientation: Person, Place, Time, Situation Transfers Therapy Code Descriptions/Definitions Functional [place] Measure: 0=Not Assessed/NA 4=Minimal Assistance 1=Total Assistance 5=Supervision or Setup 2=Maximal Assistance 6=Modified [place] 3=Moderate Assistance 7=Complete [place] Therapy Quality Codes: 6 Independent with activity with or without an assistive device 5 Patient requires set up or clean up by helper. Patient completes activity by themselves 4 Supervision or touching assist (CGA). [place] provide cues , steadying assist 3 The helper provides less than half the effort to complete the activity 2 The helper provides more than half the effort to complete the activity 1 Dependent. The helper does all the effort to complete an activity 7 Patient refused to complete or attempt activity 9 The patient did not perform the activity before the current illness or injury 88 Not attempted due to Medical conditions or safety concerns Scootin Supine to/from Sit: 6 Sit to/from Stand: 6 Sit to Lying (QC): 6 Sit to Stand (QC): 6 Gait Training Does the Patient Walk?: Yes Gait (FIM): 6 Distance (FIM): 3=150 ft Distance: 150' Walk 10 feet (QC): 6 Walk 50 ft with 2 Turns(QC): 6 Walk 150 ft (QC): 6 Gait Level of Assist: 6 Gait Persons Needed: 1 Gait Assistive Device: FWW Exercises Seated Therapy Exercises: Ankle pumps, Long arc quads, Hip flexion, Kicking activity, Hip abd/add Seated Reps: 15 Standing: Hip Abduction, Heel/toe raises, Marching Standing Reps: 15 NuStep Minutes: 12 NuStep Workload: 6 Treatments Pt transfers from chair to use restroom. Pt completes pericare seated. Pt then ambulates in hallway to Therapy Gym. Pt uses NuStep for 12m at WL 6 followed by Seated EX. Pt takes short RB then completes some Standing EX at //bars. Pt asks to return to room to use restroom again. Pt reports having an upset stomach. Pt then returns to recliner after restroom to rest. Pt has all needs met. Assessment Current Status: Good Progress Pt has some limitations to toleration of PT due to nausea. Pt is given Sprite and Nurse gives Anti-nausea med. PT Short Term Goals Short Term Goals Time Frame: September 18, 2018 Transfers (B,C,W/C) (FIM): 5 (met) Gait (FIM): 5 (met) Gait Distance Comment: 200' Gait Level of Assist: 5 Gait Assistive Device: FWW PT Chcf Goals Quilting Machine Operator Goals PT Chcf Goals Time Frame: Oct 02, 2018 Transfers (B,C,W/C) (FIM): 6 Sit to Lying (QC): 6 Lying-Sitting on Side/Bed(QC): 6 Sit to Stand (QC): 6 Rollin Roll Left to Right (QC): 6 Chair/Bvc-jg-Sijth Xfer(QC): 6 Car Transfer (QC): 6 Gait (FIM): 6 Distance: 400' Walk 10 feet (QC): 6 Walk 10ft-Uneven Surface(QC): 6 Walk 50ft with 2 Turns (QC): 6 Walk 150 ft (QC): 6 Gait Level of Assist: 6 Gait Assistive Device: FWW Stairs (FIM): 2 # of Steps: 4 1 Step (curb) (QC): 4 4 Steps (QC): 4 Stairs Level Of Assist: 5 PT Plan Problem List Problem List: Activity Tolerance Treatment/Plan Treatment Plan: Continue Plan of Care Treatment Plan: Bed Mobility, Education, Functional Activity [place], Functional Strength, Group Therapy, Gait, Safety, Therapeutic Exercise, Transfers Treatment Duration: Oct 02, 2018 Frequency: At least 5 of 7 days/Wk (IRF) Estimated Hrs Per Day: 1.5 hours per day Patient and/or Family Agrees t: Yes Safety Risks/Education Patient Education: Gait Training, Transfer Techniques, Correct Positioning, Safety Issues Teaching Recipient: Patient Teaching Methods: Discussion Response to Teaching: Verbalize Understanding Time/GCodes Time In: 1000 Time Out: 1115 Total Billed Treatment Time: 75 Total Billed Treatment 1, GT (15m), EX x2 (35m) & FA x2 (25m) KIMBERLY GUTIERREZ REPLANTING MACHINE CREW September 17, 2018 11:37
[2018-09-17 16:15] VITALS: BP 122/61
[2018-09-17] MEDS: ARTIFICIAL TEARS OINT (LACRI-LUBE) 3.5 GM TUBE OU SCH (21:44)
[2018-09-18 06:38] VITALS: BP 122/61
--- NOTE | 2018-09-18 08:58 | PM&R Progress Note ---
Subjective HPI/CC On Admission Date Seen by Provider: September 18, 2018 Time Seen by Provider: 09:00 Chief complaint: Debility HPI: This is a 77yoWM clinic Pt of Dr. Paredes who presented 5 days ago from the ER with pneumonia dysphagia and dehydration. He was having nausea and vomiting and diarrhea, became very dehydrated and very debilitated and presented to the ER placed on aggressive IV fluids and antibiotics for pneumonia and at this current time, Pt is feeling much better but very weak. He does live alone and is very active in his community serving on the [place] and volunteering at the [employer] His prior level of functioning was independent with ADLs and ambulation. He was generalized very weak in all extremities and a major fall risk. The goal will be to return back home at the completion of inpatient rehab course. Subjective/Events-last exam Last day of antibiotic is today Bed alarm and chair alarm maintained Bladder incontinence is chronic since prostate sx PT reports moderate independent some safety concerns since the traumatic brain injury still has some impulsivity issues Went up 16 steps without assistance 4 times in the past and was a truck hop DC planned for 09/24/18 Conferred with RN. Reviewed therapy notes. Review of Systems General: Fatigue Genitourinary: Incontinence Musculoskeletal: leg pain Neurological: Weakness Objective Exam Vital Signs Vital Signs Date Time Temp Pulse Resp B/P (MAP) Pulse Ox O2 Delivery O2 Flow Rate FiO2 09/18/18 18:59 Room Air 09/18/18 17:13 98.4 66 18 143/70 (94) 96 09/16/18 05:52 21 Capillary Refill : General Appearance: No Apparent Distress, WD/WN, Chronically ill, Thin HEENT: PERRL/EOMI, TMs Normal, Normal ENT Inspection, Pharynx Normal, Moist M ucous Membranes Neck: Full Range of Motion, Normal Inspection, Non Tender, Supple Respiratory: Chest Non Tender, Lungs Clear, Normal Breath Sounds, No Accessory Muscle Use, No Respiratory Distress, Decreased Breath Sounds Cardiovascular: Regular Rate, Rhythm, No Edema, No Gallop, No JVD, No Murmur Gastrointestinal: Normal Bowel Sounds, No Organomegaly, No Pulsatile Mass, Non Tender, Soft Back: Normal Inspection, No CVA Tenderness, No Vertebral Tenderness Extremity: Normal Capillary Refill, Normal Inspection, Normal Range of Motion, Non Tender, No Calf Tenderness, No Pedal Edema Neurologic/Psychiatric: Alert, Oriented x3, No Motor/Sensory Deficits (generalized weakness all extremities), Normal Mood/Affect Skin: Normal Color, Warm/Dry Lymphatic: No Adenopathy Results/Procedures Lab Patient resulted labs reviewed. FIM Transfers Therapy Code Descriptions/Definitions Functional [place] Measure: 0=Not Assessed/NA 4=Minimal Assistance 1=Total Assistance 5=Supervision or Setup 2=Maximal Assistance 6=Modified [place] 3=Moderate Assistance 7=Complete [place] Therapy Quality Codes: 6 Independent with activity with or without an assistive device 5 Patient requires set up or clean up by helper. Patient completes activity by themselves 4 Supervision or touching assist (CGA). [place] provide cues , steadying assist 3 The helper provides less than half the effort to complete the activity 2 The helper provides more than half the effort to complete the activity 1 Dependent. The helper does all the effort to complete an activity 7 Patient refused to complete or attempt activity 9 The patient did not perform the activity before the current illness or injury 88 Not attempted due to Medical conditions or safety concerns Transfers (B, C, W/C) (FIM): 5 Scootin Rollin Roll Left to Right (QC): 4 Supine to/from Sit: 6 Sit to/from Stand: 6 Sit to Lying (QC): 6 Sit to Stand (QC): 6 Chair/Nys-pn-Qeeex Xfer(QC): 4 Car Transfer (QC): 3 Gait Training Does the Patient Walk?: Yes Gait (FIM): 6 Distance (FIM): 3=150 ft Distance: 150' Walk 10 feet (QC): 6 Walk 50 ft with 2 Turns(QC): 6 Walk 150 ft (QC): 6 Walking 10ft/uneven surface-QC: 4 Gait Level of Assist: 6 Gait Persons Needed: 1 Gait Assistive Device: FWW Wheelchair Training Does the Pt Use a Wheelchair?: No Stair Training Stair Training: Handrails/: 2 handrails Stairs (FIM): 5 #of Steps: 3 (descending) 1 Step (curb) (QC): 4 Stairs: Pattern: Step to Level of Assist: 4 (CGA provided for safety) Mental Status/Objective Comprehension: 5 Expression: 5 Social Interaction: 6 Problem Solvin Memory: 4 (Pt. does exhibit some memory issues and often will repeat himself.) ADL-Treatment Feedin Eating (QC): 5 Groomin Oral Hygiene (QC): 4 Bathin (CGA) Shower/Bathe Self (QC): 4 Upper Extremity Dressin Upper Body Dressing (QC): 5 Lower Extremity Dressin Lower Body Dressing (QC): 4 On/Off Footwear (QC): 5 Toiletin Toileting Hygiene (QC): 4 Toilet/Commode Transfer: 5 Toilet Transfer (QC): 4 Shower: 5 Assessment/Plan Assessment and Plan Assess & Plan/Chief Complaint Assessment: Debility Pneumonia Lung cancer hx HTN Neuropathy TBI hx Depression GERD Chronic pain Chronic incontinence Plan: IRF protocol Increase strengthening and safety for fall risk prevention Return home for independent living Complete abx 09/18/18 today Incontinence care Probiotic DC Sunday (1) Debility (2) RESPIRATORY FAILURE, UNSP, UNSP W HYPOXIA OR HYPERCAPNIA (3) Lung cancer (4) Chronic pain (5) Essential (primary) hypertension (6) TBI (traumatic brain injury) (7) Anemia (8) Elevated brain natriuretic peptide (BNP) level (9) Confusion Resolution Date/Time: 09/08/18 @ 10:31 (10) Nausea and vomiting (11) H/O prostatectomy (12) Urinary incontinence BEBETO OLIVAREZ DO September 18, 2018 08:58
[2018-09-18] MEDS: VILANTEROL IH SCH (09:44)
[2018-09-18] MEDS: UMECLIDINIUM IH SCH (09:44)
[2018-09-18] MEDS: KCL 20 MEQ TAB (K-DUR) PO SCH (09:45)
[2018-09-18] MEDS: AUGMENTIN 875 MG TAB (AMOXICILLIN/CLAVULANATE) PO SCH (09:45)
[2018-09-18] MEDS: LACTOBACILLUS ACIDOPHILUS (PROBIOTIC) CAPSULE PO SCH ×3 (09:45→17:53)
[2018-09-18] MEDS: LORATADINE (CLARITIN) 10 MG TAB PO SCH (09:46)
[2018-09-18] MEDS: PANTOPRAZOLE 20 MG TABLET (PROTONIX) PO SCH (09:46)
[2018-09-18] MEDS: TAMSULOSIN 0.4 MG (FLOMAX) CAP PO SCH (09:46)
[2018-09-18] MEDS: ASPIRIN E.C. 325 MG (ECOTRIN) TABLET PO SCH (09:46)
[2018-09-18] MEDS: FERROUS SULF 325 MG (IRON) TAB PO SCH (09:46)
[2018-09-18] MEDS: ARTIFICAL TEARS 0.4 ML UNIT DOSE (REFRESH PLUS) OU PRN ×4 (09:47→20:59)
[2018-09-18] MEDS: PARoxetine 20 MG (PAXIL) TAB PO SCH (09:47)
[2018-09-18] MEDS: GABAPENTIN 300 MG (NEURONTIN) CAP PO SCH ×3 (09:47→20:59)
[2018-09-18] MEDS: amLODIPine 10 MG (NORVASC) TAB PO SCH (09:47)
--- NOTE | 2018-09-18 10:05 | Occupational Ther Daily Note ---
OT Current Status-Daily Note Subjective Pt in bed, agrees to therapy. Pt has no c/o pain at this time. Mental Status/Objective Therapy Code Descriptions/Definitions Functional [place] Measure: 0=Not Assessed/NA 4=Minimal Assistance 1=Total Assistance 5=Supervision or Setup 2=Maximal Assistance 6=Modified [place] 3=Moderate Assistance 7=Complete [place] ADL-Treatment Pt supine to sit with modified independence. Gait to restroom with FWW. Pt completed toilet transfer x2 during session with modified independence using grab bar for safety. Pt able to complete toileting hygiene, but requires supervision for standing balance during clothing management. Transfer to walk in shower with supervision, cues for safety. Pt completed bathing using hand held shower. Pt able to wash/dry all areas, requires supervision for balance while standing to wash buttocks. Don pullover shirt with set up. Pt able to thread bilateral LE into Depends and pants. Pt required supervision for balance during pant hike. Pt had minor LOB, but was able to self correct. Don socks and shoes with set up. Pt completed grooming tasks with modified independence. Therapy Code Descriptions/Definitions Functional [place] Measure: 0=Not Assessed/NA 4=Minimal Assistance 1=Total Assistance 5=Supervision or Setup 2=Maximal Assistance 6=Modified [place] 3=Moderate Assistance 7=Complete [place] Therapy Quality Codes: 6 Independent with activity with or without an assistive device 5 Patient requires set up or clean up by helper. Patient completes activity by themselves 4 Supervision or touching assist (CGA). [place] provide cues , steadying assist 3 The helper provides less than half the effort to complete the activity 2 The helper provides more than half the effort to complete the activity 1 Dependent. The helper does all the effort to complete an activity 7 Patient refused to complete or attempt activity 9 The patient did not perform the activity before the current illness or injury 88 Not attempted due to Medical conditions or safety concerns Grooming (FIM): 6 Oral Hygiene (QC): 6 Bathing (FIM): 5 Shower/Bathe Self (QC): 4 Upper Body (FIM): 5 Upper Body Dressing (QC): 5 Lower Body Dressing (FIM): 5 Lower Body Dressing (QC): 4 On/Off Footwear (QC): 5 Toileting (FIM): 5 Toileting Hygiene (QC): 4 Toilet/Commode Transfer (FIM): 6 Toilet Transfer (QC): 6 Shower Transfer(FIM): 5 Other Treatment Gait to therapy gym with FWW, no LOB noted. Arm bike x12 minutes to increase overall strength and activity tolerance needed for functional tasks. Pt completed activity with moderate resistance and slow pace. No rest breaks needed. Pt returned to room, sitting in chair with needs met and professor of social work present after session. OT Short Term Goals Short Term Goals Transfers (B,C,W/C) (FIM): 5 (met) 1=Demonstrate adherence to instructed precautions during ADL tasks. 2=Patient will verbalize/demonstrate understanding of assistive devices/modifications for ADL. 3=Patient will improve strength/tolerance for activity to enable patient to perform ADL's. OT Forensic Identification Specialist Goals Forensic Identification Specialist Goals Time Frame: Sep 25, 2018 Eating (FIM): 6 Eating (QC): 6 Groomin Oral Hygiene (QC): 6 Bathing(FIM): 5 Shower/Bathe Self (QC): 6 Upper Body Dressing(FIM): 6 Upper Body Dressing (QC): 6 Lower Body Dressing(FIM): 6 Lower Body Dressing (QC): 6 On/Off Footwear (QC): 6 Toileting(FIM): 6 Toileting Hygiene (QC): 6 Transfers (B,C,W/C) (FIM): 6 Toilet/Commode Transfer(FIM): 6 Toilet/Commode Transfer (QC): 6 Shower Transfer(FIM): 5 Additional Goals: 1-Demonstrate ADL Tasks, 2-Verbalize Understanding, 3- ImproveStrength/Herrera 1=Demonstrate adherence to instructed precautions during ADL tasks. 2=Patient will verbalize/demonstrate understanding of assistive devices/modifications for ADL. 3=Patient will improve strength/tolerance for activity to enable patient to perform ADL's. OT Education/Plan Discharge Recommendations Plan/Recommendations: Continue POC Treatment Plan/Plan of Care Patient would benefit from OT for education, treatment and training to promote independence in ADL's, mobility, safety and/or upper extremity function for ADL's. Plan of Care: ADL Retraining, Functional Mobility, Group Exercise/Act as Ind, UE Funct Exercise/Act Treatment Duration: Sep 25, 2018 Frequency: At least 5 of 7 days/Wk (IRF) Estimated Hrs Per Day: 1.5 hours per day Agreement: Yes Rehab Potential: Good Time/GCodes Start Time: 08:00 Stop Time: 09:00 Total Time Billed (hr/min): 60 Billed Treatment Time 1 visit, ADLx3(45minutes), EX(15minutes) BARNEY GRECO OT September 18, 2018 10:05
--- NOTE | 2018-09-18 10:28 | Speech Therapy Daily Note ---
Speech Daily Progress Note Subjective Date Seen by Provider: September 18, 2018 Time Seen by Provider: 00:30 The patient was pleasant and attentive during the session today. Objective The patient completed problem solving tasks related to his daily needs, meds at 80% with minimal redirection. Assessment Assessment Current Status: Good Progress Treatment Plan Continue Plan of Care Communication Comprehension: 6 Expression: 7 Social Cognition Social Interaction: 7 Problem Solvin Memory: 6 Speech Short Term Goals Short Term Goals Short Term Goals 1) The patient will complete memory tasks related to himself and daily needs with 90% or greater given minimal verbal cues. 12 The patient will complete problem solving tasks related to himself and daily needs with 90% or greater given minimal verbal cues. Speech Chcf Goals Press Operator Meat Goals The patient will improve his cognitive function in order to return home safely. Speech-Plan Patient/Family Goals Patient/Family Goals: The patient plans on returning home alone. Due to memory and problem solving deficits which are mostly resolved, there remains concern of his ability to return home alone in a safe manner. Treatment Plan Speech Therapy Treatment Plan: Continue Plan of Care Patient has progressed well with skilled therapy. Treatment Duration: September 20, 2018 Frequency: 5 times per week Estimated Hrs Per Day: .5 hour per day Rehab Potential: Good Barriers to Learning: Patient has memory and problem solving deficits, mostly resolved, however with some residual effects remaining. Pt/Family Agrees to Plan: Yes Safety Risks/Education Teaching Recipient: Patient Teaching Methods: Discussion Response to Teaching: Verbalize Understanding Education Topics Provided: Safety upon his return to his home. Time Speech Therapy Time In: 09:30 Speech Therapy Time Out: 10:00 Total Billed Time: 30 Billed Treatment Time [address] September 18, 2018 10:28
--- NOTE | 2018-09-18 11:08 | Physical Therapy Daily Note ---
PT Daily Note-Current Subjective Pt sitting in recliner upon arrival. Pt agrees to PT. Pain Location: No Pain Reported Mental Status Patient Orientation: Person, Place, Situation Transfers Therapy Code Descriptions/Definitions Functional [place] Measure: 0=Not Assessed/NA 4=Minimal Assistance 1=Total Assistance 5=Supervision or Setup 2=Maximal Assistance 6=Modified [place] 3=Moderate Assistance 7=Complete [place] Therapy Quality Codes: 6 Independent with activity with or without an assistive device 5 Patient requires set up or clean up by helper. Patient completes activity by themselves 4 Supervision or touching assist (CGA). [place] provide cues , steadying assist 3 The helper provides less than half the effort to complete the activity 2 The helper provides more than half the effort to complete the activity 1 Dependent. The helper does all the effort to complete an activity 7 Patient refused to complete or attempt activity 9 The patient did not perform the activity before the current illness or injury 88 Not attempted due to Medical conditions or safety concerns Transfers (B, C, W/C) (FIM): 6 Scootin Rollin Roll Left to Right (QC): 6 Supine to/from Sit: 6 Sit to/from Stand: 6 Sit to Lying (QC): 6 Sit to Stand (QC): 6 Chair/Hkz-pk-Pywnq Xfer(QC): 6 Bed to/from Chair: 6 Car Transfer (QC): 6 Pt is Mod I with some safety concerns including cognition & sequencing at times. Gait Training Does the Patient Walk?: Yes Gait (FIM): 6 Distance (FIM): 3=150 ft Distance: 250' Walk 10 feet (QC): 6 Walk 50 ft with 2 Turns(QC): 6 Walk 150 ft (QC): 6 Walking 10ft/uneven surface-QC: 6 Gait Level of Assist: 6 Gait Persons Needed: 1 Gait Assistive Device: FWW Pt wanted to attempt ambulation with SPC but was more stable with FWW so COMMUNITY SERVICES OFFICER told pt to use this for now. Wheelchair Training Does the Pt Use a Wheelchair?: No Stair Training Stair Training: Handrails/: 2 handrails Stairs (FIM): 6 #of Steps: 16 1 Step (curb) (QC): 6 4 Steps (QC): 6 12 Steps (QC): 6 Stairs: Pattern: Step to Level of Assist: 6 Balance Picking up an Object (QC): 88 Special Test Comments Pt gets dizzy with bending over. Treatments Pt completes activities needed to complete FIM scoring including transfers including car transfer, bed mobility, ambulation including across varying surface & stairs. Pt practices ambulation with SPC as well but not as safe as FWW so COMMUNITY SERVICES OFFICER advises pt to use FWW at this time. Pt rests in recliner at end of tx with all needs met. Assessment Current Status: Good Progress Pt does demonstrate safety concerns at times mainly with cognition, memory and sequencing. Pt is able to complete tasks but sometimes needs VC for direction on how to complete them. PT Short Term Goals Short Term Goals Time Frame: September 18, 2018 Transfers (B,C,W/C) (FIM): 5 (met) Gait (FIM): 5 (met) Gait Distance Comment: 200' Gait Level of Assist: 5 Gait Assistive Device: FWW PT Afternoon Nanny Goals Afternoon Nanny Goals PT Afternoon Nanny Goals Time Frame: Oct 02, 2018 Transfers (B,C,W/C) (FIM): 6 Sit to Lying (QC): 6 Lying-Sitting on Side/Bed(QC): 6 Sit to Stand (QC): 6 Rollin Roll Left to Right (QC): 6 Chair/Qut-br-Kppnt Xfer(QC): 6 Car Transfer (QC): 6 Gait (FIM): 6 Distance: 400' Walk 10 feet (QC): 6 Walk 10ft-Uneven Surface(QC): 6 Walk 50ft with 2 Turns (QC): 6 Walk 150 ft (QC): 6 Gait Level of Assist: 6 Gait Assistive Device: FWW Stairs (FIM): 2 # of Steps: 4 1 Step (curb) (QC): 4 4 Steps (QC): 4 Stairs Level Of Assist: 5 PT Plan Problem List Problem List: Safety, Balance Treatment/Plan Treatment Plan: Continue Plan of Care Treatment Plan: Bed Mobility, Education, Functional Activity Herrera, Functional Strength, Group Therapy, Gait, Safety, Therapeutic Exercise, Transfers Treatment Duration: Oct 02, 2018 Frequency: At least 5 of 7 days/Wk (IRF) Estimated Hrs Per Day: 1.5 hours per day Patient and/or Family Agrees t: Yes Safety Risks/Education Patient Education: Gait Training, Transfer Techniques, Correct Positioning, Safety Issues Teaching Recipient: Patient Teaching Methods: Discussion Response to Teaching: Verbalize Understanding, Reinforcement Needed Time/GCodes Time In: 1015 Time Out: 1100 Total Billed Treatment Time: 45 Total Billed Treatment 1, GT (15m) & FA x2 (30m) G Codes Necessary: KIMBERLY Castellano COMMUNITY SERVICES OFFICER September 18, 2018 11:08
--- NOTE | 2018-09-18 14:20 | NUR ---
APPLICATION CHEMIST met with patient to review team conference summary. As patient continues to exhibit balance deficits, standby assist for ADLs and safety concerns, team has recommended discharge on 09/24. APPLICATION CHEMIST reviewed this recommendation and patient believes he is safe to discharge [facility] and has requested discharge by 09/20. APPLICATION CHEMIST inquired about local support as patient's children are not local. Patient states he has several nieces near as well as friends that can provide assistance as needed. APPLICATION CHEMIST relayed patients request and information on friend/family support to Dr. Sullivan and therapy, both are in agreement of new discharge date. Patient refuses home health as he was not maintain homebound status, and patient would like to utilize [facility] for outpatient PT and OT. Patient has prolonged walker at home for use. APPLICATION CHEMIST will continue to follow.
--- NOTE | 2018-09-18 15:10 | Therapy Group Daily Note ---
Therapy Daily Group Note Patient Education Topic Fall Prevention, Other List Below (balance) Exercises LE Seated Exercise, Sit to/from Stand, Other (core) Session Ratio (pt:therapist): 4:1 Goal of Session: Other (list) (balance and fall prevention) Goal Met for this Session: Yes Pt Benefit of Group: Increased Functional Safety, Increased Functional Streng th, Recognition of Peers, Other (safety, fall prevention) Other/Notes Pt. participated in group PT OT session. Pt. ambulated to from group with CGA . Pts. shared names, place and their 1st car/driving experience. Focus of education this date : balance, possible causes for LOB, fall prevention as well as exercises to improve strength and balance. Pts. shared their personal experiences and strategies to improve safety at home. Seated exercises as stated above. Pt. to bed after Rx with min to CGA for all. In bed, breaux at hand Start Time: 13:00 Stop Time: 14:15 Total Billed Treatment Time: 75 Total Billed Treatment 1,GRP KYLER SOTELO AIR PURIFIER SERVICER September 18, 2018 15:10
[2018-09-18 17:13] VITALS: BP 143/70
[2018-09-18] MEDS: ARTIFICIAL TEARS OINT (LACRI-LUBE) 3.5 GM TUBE OU SCH (21:00)
[2018-09-19 05:16] VITALS: BP 149/64
[2018-09-19] MEDS: PANTOPRAZOLE 20 MG TABLET (PROTONIX) PO SCH (06:25)
[2018-09-19] MEDS: LACTOBACILLUS ACIDOPHILUS (PROBIOTIC) CAPSULE PO SCH ×3 (06:26→16:37)
[2018-09-19] MEDS: KCL 20 MEQ TAB (K-DUR) PO SCH (06:26)
--- NOTE | 2018-09-19 08:07 | PM&R Progress Note ---
Subjective HPI/CC On Admission Date Seen by Provider: September 19, 2018 Time Seen by Provider: 08:15 Chief complaint: Debility HPI: This is a 77yoWM clinic Pt of Dr. Paredes who presented 5 days ago from the ER with pneumonia dysphagia and dehydration. He was having nausea and vomiting and diarrhea, became very dehydrated and very debilitated and presented to the ER placed on aggressive IV fluids and antibiotics for pneumonia and at this current time, Pt is feeling much better but very weak. He does live alone and is very active in his community serving on the koi and volunteering at the [employer]. His prior level of functioning was independent with ADLs and ambulation. He was generalized very weak in all extremities and a major fall risk. The goal will be to return back home at the completion of inpatient rehab course. Subjective/Events-last exam Pt intends to be DC tomorrow I gave outpatient PT and OT orders Chronic incontinence is managed on his own at home Completed antibiotic yesterday at home for the pneumonia Overall feels much better Denies any need for home health or in home, home bound status Overall feels pretty good waling with his walker Will evaluate for any of his needs prior to DC by social work Conferred with RN. Reviewed therapy notes. Review of Systems General: Fatigue Objective Exam Vital Signs Vital Signs Date Time Temp Pulse Resp B/P (MAP) Pulse Ox O2 Delivery O2 Flow Rate FiO2 09/19/18 15:31 97.4 73 16 121/67 (85) 92 Room Air 09/16/18 05:52 21 Capillary Refill : General Appearance: No Apparent Distress, WD/WN, Chronically ill, Thin HEENT: PERRL/EOMI, TMs Normal, Normal ENT Inspection, Pharynx Normal, Moist Mucous Membranes Neck: Full Range of Motion, Normal Inspection, Non Tender, Supple Respiratory: Chest Non Tender, Lungs Clear, Normal Breath Sounds, No Accessory Muscle Use, No Respiratory Distress Cardiovascular: Regular Rate, Rhythm, No Edema, No Gallop, No JVD, No Murmur Gastrointestinal: Normal Bowel Sounds, No Organomegaly, No Pulsatile Mass, Non Tender, Soft Back: Normal Inspection, No CVA Tenderness, No Vertebral Tenderness Extremity: Normal Capillary Refill, Normal Inspection, Normal Range of Motion, Non Tender, No Calf Tenderness, No Pedal Edema Neurologic/Psychiatric: Alert, Oriented x3, No Motor/Sensory Deficits (generalized weakness all extremities), Normal Mood/Affect Skin: Normal Color, Warm/Dry Lymphatic: No Adenopathy Results/Procedures Lab Patient resulted labs reviewed. FIM Transfers Therapy Code Descriptions/Definitions Functional [place] Measure: 0=Not Assessed/NA 4=Minimal Assistance 1=Total Assistance 5=Supervision or Setup 2=Maximal Assistance 6=Modified [place] 3=Moderate Assistance 7=Complete [place] Therapy Quality Codes: 6 Independent with activity with or without an assistive device 5 Patient requires set up or clean up by helper. Patient completes activity by themselves 4 Supervision or touching assist (CGA). [place] provide cues , steadying assist 3 The helper provides less than half the effort to complete the activity 2 The helper provides more than half the effort to complete the activity 1 Dependent. The helper does all the effort to complete an activity 7 Patient refused to complete or attempt activity 9 The patient did not perform the activity before the current illness or injury 88 Not attempted due to Medical conditions or safety concerns Transfers (B, C, W/C) (FIM): 6 Scootin Rollin Roll Left to Right (QC): 6 Supine to/from Sit: 6 Sit to/from Stand: 6 Sit to Lying (QC): 6 Sit to Stand (QC): 6 Chair/Nzp-pc-Fuqsm Xfer(QC): 6 Bed to/from Chair: 6 Car Transfer (QC): 6 Gait Training Does the Patient Walk?: Yes Gait (FIM): 6 Distance (FIM): 3=150 ft Distance: 250' Walk 10 feet (QC): 6 Walk 50 ft with 2 Turns(QC): 6 Walk 150 ft (QC): 6 Walking 10ft/uneven surface-QC: 6 Gait Level of Assist: 6 Gait Persons Needed: 1 Gait Assistive Device: FWW Wheelchair Training Does the Pt Use a Wheelchair?: No Stair Training Stair Training: Handrails/: 2 handrails Stairs (FIM): 6 #of Steps: 16 1 Step (curb) (QC): 6 4 Steps (QC): 6 12 Steps (QC): 6 Stairs: Pattern: Step to Level of Assist: 6 Balance Picking up an Object (QC): 88 Mental Status/Objective Comprehension: 6 Expression: 7 Social Interaction: 7 Problem Solvin Memory: 6 ADL-Treatment Feedin Eating (QC): 5 Groomin Oral Hygiene (QC): 6 Bathin Shower/Bathe Self (QC): 4 Upper Extremity Dressin Upper Body Dressing (QC): 5 Lower Extremity Dressin Lower Body Dressing (QC): 4 On/Off Footwear (QC): 5 Toiletin Toileting Hygiene (QC): 4 Toilet/Commode Transfer: 6 Toilet Transfer (QC): 6 Shower: 5 Assessment/Plan Assessment and Plan Assess & Plan/Chief Complaint Assessment: Debility Pneumonia Lung cancer hx HTN Neuropathy TBI hx Depression GERD Chronic pain Chronic incontinence Plan: IRF protocol Increase strengthening and safety for fall risk prevention Return home for independent living Complete abx 09/18/18 yesterday Incontinence care Probiotic DC tomorrow (1) Debility (2) RESPIRATORY FAILURE, UNSP, UNSP W HYPOXIA OR HYPERCAPNIA (3) Lung cancer (4) Chronic pain (5) Essential (primary) hypertension (6) TBI (traumatic brain injury) (7) Anemia (8) Elevated brain natriuretic peptide (BNP) level (9) Confusion Resolution Date/Time: 09/08/18 @ 10:31 (10) Nausea and vomiting (11) H/O prostatectomy (12) Urinary incontinence BEBETO OLIVAREZ DO September 19, 2018 08:07
[2018-09-19] MEDS: ARTIFICAL TEARS 0.4 ML UNIT DOSE (REFRESH PLUS) OU PRN ×4 (09:04→17:22)
[2018-09-19] MEDS: TAMSULOSIN 0.4 MG (FLOMAX) CAP PO SCH (09:05)
[2018-09-19] MEDS: GABAPENTIN 300 MG (NEURONTIN) CAP PO SCH ×3 (09:05→21:27)
[2018-09-19] MEDS: LORATADINE (CLARITIN) 10 MG TAB PO SCH (09:05)
[2018-09-19] MEDS: PARoxetine 20 MG (PAXIL) TAB PO SCH (09:05)
[2018-09-19] MEDS: amLODIPine 10 MG (NORVASC) TAB PO SCH (09:05)
[2018-09-19] MEDS: FERROUS SULF 325 MG (IRON) TAB PO SCH (09:06)
[2018-09-19] MEDS: ASPIRIN E.C. 325 MG (ECOTRIN) TABLET PO SCH (09:06)
--- NOTE | 2018-09-19 09:29 | Occupational Ther Daily Note ---
OT Current Status-Daily Note Subjective No pain reported. Appearance Pt. in bed. Agrees to shower. Mental Status/Objective Patient Orientation: Person, Place Therapy Code Descriptions/Definitions Functional [place] Measure: 0=Not Assessed/NA 4=Minimal Assistance 1=Total Assistance 5=Supervision or Setup 2=Maximal Assistance 6=Modified [place] 3=Moderate Assistance 7=Complete [place] ADL-Treatment Therapy Code Descriptions/Definitions Functional [place] Measure: 0=Not Assessed/NA 4=Minimal Assistance 1=Total Assistance 5=Supervision or Setup 2=Maximal Assistance 6=Modified [place] 3=Moderate Assistance 7=Complete [place] Therapy Quality Codes: 6 Independent with activity with or without an assistive device 5 Patient requires set up or clean up by helper. Patient completes activity by themselves 4 Supervision or touching assist (CGA). [place] provide cues , steadying assist 3 The helper provides less than half the effort to complete the activity 2 The helper provides more than half the effort to complete the activity 1 Dependent. The helper does all the effort to complete an activity 7 Patient refused to complete or attempt activity 9 The patient did not perform the activity before the current illness or injury 88 Not attempted due to Medical conditions or safety concerns Grooming (FIM): 6 Oral Hygiene (QC): 6 Bathing (FIM): 5 (SBA in shower when pt. stands to wash.) Shower/Bathe Self (QC): 4 Upper Body (FIM): 6 Upper Body Dressing (QC): 5 Lower Body Dressing (FIM): 5 (SBA due to safety issues with standing.) Lower Body Dressing (QC): 4 On/Off Footwear (QC): 5 Toileting (FIM): 6 Toileting Hygiene (QC): 6 Transfers (B, C, W/C) (FIM): 6 (With safety concerns.) Toilet/Commode Transfer (FIM): 6 Toilet Transfer (QC): 6 Shower Transfer(FIM): 5 Other Treatment Pt. completed ADLs this date. Noted that pt. does exhibit some safety concerns when attempting dynamic standing task such as pulling up pants. Pt. assures this therapist that he has all kinds of grab bars positioned at home, and that he will have help from his S.O., kids, and nieces. After ADLs, ambulated to therapy gym using walker. Completed armbike x 15 minutes for increased overall endurance, and then donned 1 lb. wrist weights to complete reaching task with therapy pegs. Worked on UE strength. Tolerated this well and then ambulated back to room. All needs met in room. Education OT Patient Education: Correct positioning, Exercise program, Modified ADL techniques, Progress toward Goal/Update tx plan, Purpose of tx/functional activities, Reviewed precautions, Rehab process, Transfer techniques Teaching Recipient: Patient Teaching Methods: Demonstration, Discussion Response to Teaching: Verbalize Understanding, Return Demonstration OT Short Term Goals Short Term Goals Transfers (B,C,W/C) (FIM): 5 (met) 1=Demonstrate adherence to instructed precautions during ADL tasks. 2=Patient will verbalize/demonstrate understanding of assistive devices/modifications for ADL. 3=Patient will improve strength/tolerance for activity to enable patient to perform ADL's. OT Alf Goals Alf Goals Time Frame: Sep 25, 2018 Eating (FIM): 6 Eating (QC): 6 Groomin Oral Hygiene (QC): 6 Bathing(FIM): 5 Shower/Bathe Self (QC): 6 Upper Body Dressing(FIM): 6 Upper Body Dressing (QC): 6 Lower Body Dressing(FIM): 6 Lower Body Dressing (QC): 6 On/Off Footwear (QC): 6 Toileting(FIM): 6 Toileting Hygiene (QC): 6 Transfers (B,C,W/C) (FIM): 6 Toilet/Commode Transfer(FIM): 6 Toilet/Commode Transfer (QC): 6 Shower Transfer(FIM): 5 Additional Goals: 1-Demonstrate ADL Tasks, 2-Verbalize Understanding, 3- ImproveStrength/Herrera 1=Demonstrate adherence to instructed precautions during ADL tasks. 2=Patient will verbalize/demonstrate understanding of assistive devices/modifications for ADL. 3=Patient will improve strength/tolerance for activity to enable patient to perform ADL's. OT Education/Plan Problem List/Assessment Assessment: Decreased Activ Tolerance, Impaired I ADL's Discharge Recommendations Plan/Recommendations: Continue POC Therapy D/C Recommendations: Home w/ Family Support, Occupational Therapy Home Care Treatment Plan/Plan of Care Treatment,Training & Education: Yes Patient would benefit from OT for education, treatment and training to promote independence in ADL's, mobility, safety and/or upper extremity function for ADL's. Plan of Care: ADL Retraining, Functional Mobility, Group Exercise/Act as Ind, UE Funct Exercise/Act Treatment Duration: Sep 25, 2018 Frequency: At least 5 of 7 days/Wk (IRF) Estimated Hrs Per Day: 1.5 hours per day Agreement: Yes Rehab Potential: Good Time/GCodes Start Time: 08:15 Stop Time: 09:30 Total Time Billed (hr/min): 75 Billed Treatment Time 1, ADL x 45minutes, Ex x 30minutes MARILIN ESCALANTE OT September 19, 2018 09:29
[2018-09-19] MEDS: UMECLIDINIUM IH SCH (09:33)
[2018-09-19] MEDS: VILANTEROL IH SCH (09:33)
--- NOTE | 2018-09-19 11:04 | Physical Therapy Daily Note ---
PT Daily Note-Current Subjective Pt sitting in recliner upon arrival. Pt agrees to PT although remains confused. Pain Location: No Pain Reported Mental Status Patient Orientation: Person, Confused, Place Transfers Therapy Code Descriptions/Definitions Functional [place] Measure: 0=Not Assessed/NA 4=Minimal Assistance 1=Total Assistance 5=Supervision or Setup 2=Maximal Assistance 6=Modified [place] 3=Moderate Assistance 7=Complete [place] Therapy Quality Codes: 6 Independent with activity with or without an assistive device 5 Patient requires set up or clean up by helper. Patient completes activity by themselves 4 Supervision or touching assist (CGA). [place] provide cues , steadying assist 3 The helper provides less than half the effort to complete the activity 2 The helper provides more than half the effort to complete the activity 1 Dependent. The helper does all the effort to complete an activity 7 Patient refused to complete or attempt activity 9 The patient did not perform the activity before the current illness or injury 88 Not attempted due to Medical conditions or safety concerns Transfers (B, C, W/C) (FIM): 6 Scootin Rollin Roll Left to Right (QC): 7 Supine to/from Sit: 6 Sit to/from Stand: 6 Sit to Lying (QC): 6 Sit to Stand (QC): 6 Chair/Ttt-pm-Wuzth Xfer(QC): 6 Bed to/from Chair: 6 Car Transfer (QC): 6 Weight Bearing Full Weight Bearing Full Weight Bearing Gait Training Does the Patient Walk?: Yes Gait (FIM): 6 Distance (FIM): 3=150 ft Distance: 300' Walk 10 feet (QC): 6 Walk 50 ft with 2 Turns(QC): 6 Walk 150 ft (QC): 6 Walking 10ft/uneven surface-QC: 6 Gait Level of Assist: 6 Gait Persons Needed: 1 Gait Assistive Device: FWW Wheelchair Training Does the Pt Use a Wheelchair?: No Stair Training Stair Training: Handrails/: 2 handrails Stairs (FIM): 6 #of Steps: 12 1 Step (curb) (QC): 6 4 Steps (QC): 6 12 Steps (QC): 6 Stairs: Pattern: Step to Level of Assist: 6 Balance Picking up an Object (QC): 6 Special Test Comments Pt reports no dizziness today but does use reachers at home. Treatments Pt completes tasks to achieve FIM scoring. This includes bed mobility, transfers including car transfer, ambulation including across varying surface as well as stairs. Assessment Current Status: Good Progress Pt is able to complete tasks but continues to show confusion especially with sequencing. PT Short Term Goals Short Term Goals Time Frame: September 18, 2018 Transfers (B,C,W/C) (FIM): 5 (met) Gait (FIM): 5 (met) Gait Distance Comment: 200' Gait Level of Assist: 5 Gait Assistive Device: FWW PT Dragline Operator Helper Goals Dragline Operator Helper Goals PT Detention Goals Time Frame: Oct 02, 2018 Transfers (B,C,W/C) (FIM): 6 Sit to Lying (QC): 6 Lying-Sitting on Side/Bed(QC): 6 Sit to Stand (QC): 6 Rollin Roll Left to Right (QC): 6 Chair/Vux-ox-Dryyg Xfer(QC): 6 Car Transfer (QC): 6 Gait (FIM): 6 Distance: 400' Walk 10 feet (QC): 6 Walk 10ft-Uneven Surface(QC): 6 Walk 50ft with 2 Turns (QC): 6 Walk 150 ft (QC): 6 Gait Level of Assist: 6 Gait Assistive Device: FWW Stairs (FIM): 2 # of Steps: 4 1 Step (curb) (QC): 4 4 Steps (QC): 4 Stairs Level Of Assist: 5 PT Plan Problem List Problem List: Activity Tolerance Treatment/Plan Treatment Plan: Continue Plan of Care Treatment Plan: Bed Mobility, Education, Functional Activity Herrera, Functional Strength, Group Therapy, Gait, Safety, Therapeutic Exercise, Transfers Treatment Duration: Oct 02, 2018 Frequency: At least 5 of 7 days/Wk (IRF) Estimated Hrs Per Day: 1.5 hours per day Patient and/or Family Agrees t: Yes Safety Risks/Education Patient Education: Gait Training, Transfer Techniques, Correct Positioning, Safety Issues Teaching Recipient: Patient Teaching Methods: Discussion Response to Teaching: Verbalize Understanding, Reinforcement Needed Time/GCodes Time In: 1015 Time Out: 1100 Total Billed Treatment Time: 45 Total Billed Treatment 1, GT (15m) & FA x2 (30m) G Codes Necessary: KIMBERLY Castellano SEWAGE PLANT SUPERVISOR September 19, 2018 11:04
--- NOTE | 2018-09-19 13:55 | Speech Therapy Daily Note ---
Speech Daily Progress Note Subjective Date Seen by Provider: September 19, 2018 Time Seen by Provider: 00:30 The patient was eating his lunch when I entered his room. Objective The patient completed problem solving tasks related to his daily tasks with 90% given minimal cues. Assessment Assessment Current Status: Good Progress Treatment Plan Discontinue ST, Goals Met Communication Comprehension: 7 Expression: 7 Social Cognition Social Interaction: 7 Problem Solvin Memory: 7 Speech Short Term Goals Short Term Goals Short Term Goals 1) The patient will complete memory tasks related to himself and daily needs with 90% or greater given minimal verbal cues. Met 12 The patient will complete problem solving tasks related to himself and daily needs with 90% or greater given minimal verbal cues. Met Speech Unit Aide Tech Goals Shelter Goals The patient will improve his cognitive function in order to return home safely. Met Speech-Plan Patient/Family Goals Patient/Family Goals: The patient is returning home alone with support near by on 09/20/2018. Treatment Plan Speech Therapy Treatment Plan: Discontinue ST, Goals Met The patient has made good progress as a result of skilled ST services. Treatment Duration: September 20, 2018 Frequency: 5 times per week Estimated Hrs Per Day: .5 hour per day Rehab Potential: Good Barriers to Learning: The patient is impulsive at times. Patient has had some memory and problem solving deficits. Pt/Family Agrees to Plan: Yes Safety Risks/Education Teaching Recipient: Patient Teaching Methods: Discussion Response to Teaching: Verbalize Understanding Education Topics Provided: Safety upon his return home. Time Speech Therapy Time In: 12:00 Speech Therapy Time Out: 12:30 Total Billed Time: 30 Billed Treatment Time 1, LIEN Marcos September 19, 2018 13:55
--- NOTE | 2018-09-19 14:59 | Physical Therapy Daily Note ---
PT Daily Note-Current Subjective Pt sitting in recliner upon arrival. Pt agrees to PT. Pain Location: No Pain Reported Mental Status Patient Orientation: Person, Confused, Place, Situation Transfers Therapy Code Descriptions/Definitions Functional [place] Measure: 0=Not Assessed/NA 4=Minimal Assistance 1=Total Assistance 5=Supervision or Setup 2=Maximal Assistance 6=Modified [place] 3=Moderate Assistance 7=Complete [place] Therapy Quality Codes: 6 Independent with activity with or without an assistive device 5 Patient requires set up or clean up by helper. Patient completes activity by themselves 4 Supervision or touching assist (CGA). [place] provide cues , steadying assist 3 The helper provides less than half the effort to complete the activity 2 The helper provides more than half the effort to complete the activity 1 Dependent. The helper does all the effort to complete an activity 7 Patient refused to complete or attempt activity 9 The patient did not perform the activity before the current illness or injury 88 Not attempted due to Medical conditions or safety concerns Scootin Sit to/from Stand: 6 Sit to Stand (QC): 6 Weight Bearing Full Weight Bearing Full Weight Bearing Gait Training Does the Patient Walk?: Yes Gait (FIM): 6 Distance (FIM): 3=150 ft Distance: 350' Walk 10 feet (QC): 6 Walk 50 ft with 2 Turns(QC): 6 Walk 150 ft (QC): 6 Gait Level of Assist: 6 Gait Persons Needed: 1 Gait Assistive Device: FWW Wheelchair Training Does the Pt Use a Wheelchair?: No Treatments Pt transfers from recliner to standing then ambulates in hallway using FWW. Pt returns to room to use restroom then rests in recliner with all needs met. Assessment Current Status: Good Progress Pt continues to demonstrate moments of confusion but reports wanting to D/C tomorrow. PT Short Term Goals Short Term Goals Time Frame: September 18, 2018 Transfers (B,C,W/C) (FIM): 5 (met) Gait (FIM): 5 (met) Gait Distance Comment: 200' Gait Level of Assist: 5 Gait Assistive Device: FWW PT Half-Way Goals Patient Observation Assistant Goals PT Half-Way Goals Time Frame: Oct 02, 2018 Transfers (B,C,W/C) (FIM): 6 Sit to Lying (QC): 6 Lying-Sitting on Side/Bed(QC): 6 Sit to Stand (QC): 6 Rollin Roll Left to Right (QC): 6 Chair/Izu-qc-Qyxbh Xfer(QC): 6 Car Transfer (QC): 6 Gait (FIM): 6 Distance: 400' Walk 10 feet (QC): 6 Walk 10ft-Uneven Surface(QC): 6 Walk 50ft with 2 Turns (QC): 6 Walk 150 ft (QC): 6 Gait Level of Assist: 6 Gait Assistive Device: FWW Stairs (FIM): 2 # of Steps: 4 1 Step (curb) (QC): 4 4 Steps (QC): 4 Stairs Level Of Assist: 5 PT Plan Problem List Problem List: Activity Tolerance, Safety Treatment/Plan Treatment Plan: Continue Plan of Care Treatment Plan: Bed Mobility, Education, Functional Activity Herrera, Functional Strength, Group Therapy, Gait, Safety, Therapeutic Exercise, Transfers Treatment Duration: Oct 02, 2018 Frequency: At least 5 of 7 days/Wk (IRF) Estimated Hrs Per Day: 1.5 hours per day Patient and/or Family Agrees t: Yes Safety Risks/Education Patient Education: Gait Training, Transfer Techniques, Correct Positioning, Safety Issues Teaching Recipient: Patient Teaching Methods: Discussion Response to Teaching: Verbalize Understanding, Reinforcement Needed Time/GCodes Time In: 1330 Time Out: 1400 Total Billed Treatment Time: 30 Total Billed Treatment 1, GT (20m) & FA (10m) G Codes Necessary: KIMBERLY Castellano CRNA September 19, 2018 14:59
[2018-09-19 15:31] VITALS: BP 121/67
--- NOTE | 2018-09-19 16:54 | NUR ---
CLEAN OUT DRILLER HELPER met with patient to review any last minute concerns regarding discharge plans for tomorrow. Patient is eager to return home and expresses no concerns. CLEAN OUT DRILLER HELPER reviewed IMM and patient choice letter for outpatient therapies. Patient is in need of discharge by 930 a.m. tomorrow to ensure his ride has ability to get to work by 11 a.m. CLEAN OUT DRILLER HELPER sent therapy orders and referral information to [facility] and requested facility to contact patient to arrange appointment. Patient is scheduled to see PCP, Dr. Paredes on 09/27 at 1030 a.m. Please see discharge summary for further information.
[2018-09-19] MEDS: FENTANYL 100 MCG PATCH REMOVAL TP SCH (17:58)
[2018-09-19] MEDS: fentaNYL PATCH 100 MCG (DURAGESIC) TD SCH (17:58)
--- NOTE | 2018-09-19 21:00 | NUR ---
COMPLAIN PAIN RIGHT INNER ANKLE. IS MILDLY BRUISED. STATES SCD PUTS TOO MUCH PRESSURE ON IT AND CAN'T WEAR IT. WILL CONTINUE TO MONITOR.
[2018-09-19] MEDS: ARTIFICIAL TEARS OINT (LACRI-LUBE) 3.5 GM TUBE OU SCH (21:28)
[2018-09-20 06:00] VITALS: BP 125/64
[2018-09-20] MEDS: KCL 20 MEQ TAB (K-DUR) PO SCH (07:06)
[2018-09-20] MEDS: PANTOPRAZOLE 20 MG TABLET (PROTONIX) PO SCH (07:06)
[2018-09-20] MEDS: LACTOBACILLUS ACIDOPHILUS (PROBIOTIC) CAPSULE PO SCH (07:06)
--- NOTE | 2018-09-20 08:03 | Therapy Team Discharge Summary ---
Therapy Discharge Summary Discharge Recommendations Date of Discharge Therapy D/C Recommendations: Home w/ Family Support, Occupational Therapy Home Care Occupational Therapy Decreased Activ Tolerance, Impaired I ADL's Speech-Language Pathology The patient was admitted to the ARU following a severe sepsis episode. He was here for medical monitoring as well as strengthening. He was assessed with the [facility] which indicated he was within the Mild Neurocognitive Disorder level. He initially had some memory and problem solving deficits, most likely related to his recent illness. He progressed well and met the goals for skilled ST. He is discharging to his home today with support from friends who live near by. He is also discharging from skilled ST at this time. PT Communications Administrator Goals Fpc Goals PT Communications Administrator Goals Time Frame: Oct 02, 2018 Transfers (B,C,W/C) (FIM): 6 Roll Left to Right (QC): 6 Sit to Lying (QC): 6 Lying-Sitting on Side/Bed(QC): 6 Sit to Stand (QC): 6 Chair/Msj-lv-Oxavw Xfer(QC): 6 Car Transfer (QC): 6 Gait (FIM): 6 Distance: 400' Walk 10 feet (QC): 6 Walk 10ft-Uneven Surface(QC): 6 Walk 50ft with 2 Turns (QC): 6 Walk 150 ft (QC): 6 Gait Level of Assist: 6 Gait Assistive Device: FWW Stairs (FIM): 2 # of Steps: 4 1 Step (curb) (QC): 4 4 Steps (QC): 4 Stairs Level Of Assist: 5 OT Communications Administrator Goals Communications Administrator Goals Time Frame: Sep 25, 2018 Eating (FIM): 6 Eating (QC): 6 Oral Hygiene (QC): 6 Grooming(FIM): 6 Bathing(FIM): 5 Shower/Bathe Self (QC): 6 Upper Body Dressing(FIM): 6 Upper Body Dressing (QC): 6 Lower Body Dressing(FIM): 6 Lower Body Dressing (QC): 6 On/Off Footwear (QC): 6 Toileting(FIM): 6 Toileting Hygiene (QC): 6 Transfers (B,C,W/C) (FIM): 6 Toilet/Commode Transfer(FIM): 6 Toilet/Commode Transfer (QC): 6 Shower Transfer(FIM): 5 Additional Goals: 1-Demonstrate ADL Tasks, 2-Verbalize Understanding, 3- ImproveStrength/Herrera 1=Demonstrate adherence to instructed precautions during ADL tasks. 2=Patient will verbalize/demonstrate understanding of assistive devices/modifications for ADL. 3=Patient will improve strength/tolerance for activity to enable patient to perform ADL's. Speech Communications Administrator Goals Communications Administrator Goals The patient will improve his cognitive function in order to return home safely. Met LIEN DICK September 20, 2018 08:02
--- NOTE | 2018-09-20 08:33 | Discharge Summary ---
Diagnosis/Chief Complaint Date of Admission September 11, 2018 at 10:45 Date of Discharge Discharge Date: September 20, 2018 Discharge Diagnosis Assessment: Debility Pneumonia Lung cancer hx HTN Neuropathy TBI hx Depression GERD Chronic pain Chronic incontinence Plan: IRF protocol Increase strengthening and safety for fall risk prevention Return home for independent living Complete abx 09/18/18 yesterday Incontinence care Probiotic DC today (1) Debility (2) RESPIRATORY FAILURE, UNSP, UNSP W HYPOXIA OR HYPERCAPNIA (3) Lung cancer (4) Chronic pain (5) Essential (primary) hypertension (6) TBI (traumatic brain injury) (7) Anemia (8) Elevated brain natriuretic peptide (BNP) level (9) Confusion Resolution Date/Time: 09/08/18 @ 10:31 (10) Nausea and vomiting (11) H/O prostatectomy (12) Urinary incontinence Discharge Summary Discharge Physical Examination Allergies: Coded Allergies: baclofen (Verified Allergy, Unknown, 06/14/18) metoclopramide (Verified Allergy, Unknown, 06/14/18) Vitals & I&Os Vital Signs Date Time Temp Pulse Resp B/P (MAP) Pulse Ox O2 Delivery O2 Flow Rate FiO2 09/20/18 10:15 80 20 125/64 94 Room Air 09/20/18 06:00 97.9 92.00 09/16/18 05:52 21 General Appearance: Alert, Oriented X3, Cooperative HEENT: Atraumatic, PERRLA Respiratory: Clear to Auscultation, Normal Air Movement Cardiovascular: Regular Rate, Normal S1, Normal S2 Abdominal: Normal Bowel Sounds, Soft Neuro: Normal Gait, Normal Speech, Strength at 5/5 X4 Ext Psych/Mental Status: Mental Status NL, Mood NL Hospital Course Was the Problem List Reviewed?: Yes Hospital course: Patient had an uneventful 10 day hospital course during rehabilitation following severe debility following bilateral pneumonia and a history of lung cancer and traumatic brain injury. He participated in all therapies as required. Bowels remain normal after meds given. Chronic urinary incontinence was managed as he does at home since it was no resolution for that since his prostate surgery. His prior level of functioning was independent with the use of a cane so he was transitioned to a walker which she did very well with and was less fall risk. He completed his antibiotics on 09/18/18. Overall patient dramatically improved regain enough strength to return to almost prior level of functioning and was discharged in improved condition and all home meds were continued at the same dose and frequency. Labs (last 24 hrs) Laboratory Tests 09/15/18 05:41: White Blood Count 5.3, Red Blood Count 3.89L, Hemoglobin 10.9L, Hematocrit 34L, Mean Corpuscular Volume 87, Mean Corpuscular Hemoglobin 28, Mean Corpuscular Hemoglobin Concent 32, Red Cell Distribution Width 13.7, Platelet Count 334, Mean Platelet Volume 10.2, Neutrophils (%) (Auto) 44, Lymphocytes (%) (Auto) 34, Monocytes (%) (Auto) 9, Eosinophils (%) (Auto) 12H, Basophils (%) (Auto) 0, Neutrophils # (Auto) 2.4, Lymphocytes # (Auto) 1.8, Monocytes # (Auto) 0.5, Eosinophils # (Auto) 0.7H, Basophils # (Auto) 0.0, Sodium Level 138, Potassium Level 3.9, Chloride Level 104, Carbon Dioxide Level 25, Anion Gap 9, Blood Urea Nitrogen 17, Creatinine 0.83, Estimat Glomerular Filtration Rate > 60, BUN/Creatinine Ratio 20, Glucose Level 94, Calcium Level 9.4, Corrected Calcium 9.8, Total Bilirubin 0.2, Aspartate Amino Transf (AST/SGOT) 24, Alanine Aminot ransferase (ALT/SGPT) 28, Alkaline Phosphatase 100, Total Protein 6.5, Albumin 3.5 Pending Labs Laboratory Tests 09/15/18 05:41: White Blood Count 5.3, Red Blood Count 3.89, Hemoglobin 10.9, Hematocrit 34, Mean Corpuscular Volume 87, Mean Corpuscular Hemoglobin 28, Mean Corpuscular Hemoglobin Concent 32, Red Cell Distribution Width 13.7, Platelet Count 334, Mean Platelet Volume 10.2, Neutrophils (%) (Auto) 44, Lymphocytes (%) (Auto) 34, Monocytes (%) (Auto) 9, Eosinophils (%) (Auto) 12, Basophils (%) (Auto) 0, Neutrophils # (Auto) 2.4, Lymphocytes # (Auto) 1.8, Monocytes # (Auto) 0.5, Eosinophils # (Auto) 0.7, Basophils # (Auto) 0.0, Sodium Level 138, Potassium Level 3.9, Chloride Level 104, Carbon Dioxide Level 25, Anion Gap 9, Blood Urea Nitrogen 17, Creatinine 0.83, Estimat Glomerular Filtration Rate > 60, BUN/Creatinine Ratio 20, Glucose Level 94, Calcium Level 9.4, Corrected Calcium 9.8, Total Bilirubin 0.2, Aspartate Amino Transf (AST/SGOT) 24, Alanine Aminotra nsferase (ALT/SGPT) 28, Alkaline Phosphatase 100, Total Protein 6.5, Albumin 3.5 Discharge Home Medications: Active Scripts Active Reported Nystatin 15 Gm Cream..g. TOP BID PRN Triamcinolone Acetonide 0.025% Ointment (Triamcinolone Acetonide) 80 Gm Oint...g. TOP BID Refresh Lacri-Lube Ointment (Mineral Oil/Petrolatum,White) 3.5 Gm Oint...g. OU HS RUB 1/8 INCH INTO LASHES AT BEDTIME Senna S Tablet (Sennosides/Docusate Sodium) 1 Each Tablet 1 Tab PO DAILY PRN Omeprazole 20 Mg Capsule.dr 20 Mg PO DAILY Flomax (Tamsulosin HCl) 0.4 Mg Cap 0.4 Mg PO 1800 Oxycodone HCl 5 Mg Tablet 5 Mg PO Q6H PRN Duragesic Patch 100MCG (Fentanyl) 1 Each Patch.td72 100 Mcg TD Q72H Ibuprofen 200 Mg Tablet 400 Mg PO Q6H PRN Gilotrif (Afatinib Dimaleate) 30 Mg Tablet 30 Mg PO DAILY Iprat-Albut 0.5-3(2.5) mg/3 ml (Ipratropium/Albuterol Sulfate) 3 Ml Ampul.neb 3 Ml IH Q12H PRN Calcium Carbonate 200 Mg Tab.chew 200 Mg PO Q6H PRN Ondansetron Odt (Ondansetron) 4 Mg Tab.rapdis 4 Mg PO Q8H PRN Ventolin Hfa (Albuterol Sulfate) 1 Puff Puff 2 Puff INH Q4H PRN 1 PUFF = 90 MCG Multi-Vitamin Daily (Multivitamin) 1 Each Tablet 1 Tab PO DAILY Feosol (Ferrous Sulfate) 325 Mg Tablet 325 Mg PO DAILY Ascorbic Acid 500 Mg Tablet 500 Mg PO DAILY Loratadine 10 Mg Tablet 10 Mg PO DAILY Paroxetine HCl 20 Mg Tablet 20 Mg PO DAILY Anoro Ellipta 62.5-25 Mcg INH (Umeclidinium Brm/Vilanterol Tr) 1 Each Blst.w.dev 1 Puff IH DAILY LAST FILLED 05-23-18 Amlodipine Besylate 10 Mg Tablet 10 Mg PO DAILY Gabapentin 300 Mg Capsule 600 Mg PO TID TAKES 2 (300MG) CAPSULES Potassium Chloride 10 Meq Tab.er.prt 20 Meq PO DAILY TAKES 2 (10MEQ) TABLETS Instructions to patient/family Please see electronic discharge instructions given to patient. Diagnosis/Problems Diagnosis/Problems (1) Debility (2) RESPIRATORY FAILURE, UNSP, UNSP W HYPOXIA OR HYPERCAPNIA Status: Acute (3) Lung cancer (4) Chronic pain (5) Essential (primary) hypertension (6) TBI (traumatic brain injury) (7) Anemia (8) Elevated brain natriuretic peptide (BNP) level (9) Confusion Status: Resolved Resolution Date/Time: 09/08/18 @ 10:31 (10) Nausea and vomiting Status: Acute (11) H/O prostatectomy (12) Urinary incontinence Clinical Quality Measures DVT/VTE Risk/Contraindication: Risk Factor Score Per Nursin RFS Level Per Nursing on Admit: 4+=Very High BEBETO OLIVAREZ DO September 20, 2018 08:33
[2018-09-20] MEDS: FERROUS SULF 325 MG (IRON) TAB PO SCH (08:35)
[2018-09-20] MEDS: PARoxetine 20 MG (PAXIL) TAB PO SCH (08:35)
[2018-09-20] MEDS: TAMSULOSIN 0.4 MG (FLOMAX) CAP PO SCH (08:36)
[2018-09-20] MEDS: ARTIFICAL TEARS 0.4 ML UNIT DOSE (REFRESH PLUS) OU PRN (08:36)
[2018-09-20] MEDS: LORATADINE (CLARITIN) 10 MG TAB PO SCH (08:36)
[2018-09-20] MEDS: GABAPENTIN 300 MG (NEURONTIN) CAP PO SCH (08:36)
[2018-09-20] MEDS: amLODIPine 10 MG (NORVASC) TAB PO SCH (08:36)
[2018-09-20] MEDS: ASPIRIN E.C. 325 MG (ECOTRIN) TABLET PO SCH (08:38)
[2018-09-20] MEDS: UMECLIDINIUM IH SCH (08:43)
[2018-09-20] MEDS: VILANTEROL IH SCH (08:43)
[2018-09-20 10:15] VITALS: BP 125/64
--- NOTE | 2018-09-20 10:15 | NUR ---
Pt discharged home w assist of family/friends per w/c, accomp by staff. Pt's girlfriend providing transportation home. Pt has f/u appt w PCP, Dr. Paredes in 1 week. Pt denied questions regarding D/C meds, or other.
--- NOTE | 2018-09-20 11:01 | Therapy Team Discharge Summary ---
Therapy Discharge Summary Discharge Recommendations Date of Discharge 09/20/2018 Therapy D/C Recommendations: Home w/ Family Support, Occupational Therapy Home Care Physical Therapy This patient was seen on ARU post acute hospital stay due to pneumonia which caused functional debility. Prior to his hospital stay, he was mod indep with all mobility and living at home alone. Upon admission to this unit, he was min assist with transfers and gait and able to traverse 1 step. Treatment has focused on functional strength and balance training to enhance transfers, gait and mobility to allow him to return home as before. He has made excellent progress and has achieved all goals set at evaluation. He is mod indep with transfers, gait and stairs. Pt prefers to follow with outpt PT or an outpt wellness program at discharge instead of [facility] PT. Recommend follow up of some sort to continue to increase functional safety and activity tolerance. Will DC from ARU at this time., Occupational Therapy Decreased Activ Tolerance, Impaired I ADL's PT Usp Goals Access Director Goals PT Usp Goals Time Frame: Oct 02, 2018 Transfers (B,C,W/C) (FIM): 6 Roll Left to Right (QC): 6 Sit to Lying (QC): 6 Lying-Sitting on Side/Bed(QC): 6 Sit to Stand (QC): 6 Chair/Xqw-wr-Qvdgn Xfer(QC): 6 Car Transfer (QC): 6 Gait (FIM): 6 Distance: 400' Walk 10 feet (QC): 6 Walk 10ft-Uneven Surface(QC): 6 Walk 50ft with 2 Turns (QC): 6 Walk 150 ft (QC): 6 Gait Level of Assist: 6 Gait Assistive Device: FWW Stairs (FIM): 2 # of Steps: 4 1 Step (curb) (QC): 4 4 Steps (QC): 4 Stairs Level Of Assist: 5 all goals met OT Access Director Goals Access Director Goals Time Frame: Sep 25, 2018 Eating (FIM): 6 Eating (QC): 6 Oral Hygiene (QC): 6 Grooming(FIM): 6 Bathing(FIM): 5 Shower/Bathe Self (QC): 6 Upper Body Dressing(FIM): 6 Upper Body Dressing (QC): 6 Lower Body Dressing(FIM): 6 Lower Body Dressing (QC): 6 On/Off Footwear (QC): 6 Toileting(FIM): 6 Toileting Hygiene (QC): 6 Transfers (B,C,W/C) (FIM): 6 Toilet/Commode Transfer(FIM): 6 Toilet/Commode Transfer (QC): 6 Shower Transfer(FIM): 5 Additional Goals: 1-Demonstrate ADL Tasks, 2-Verbalize Understanding, 3- ImproveStrength/[place]rera 1=Demonstrate adherence to instructed precautions during ADL tasks. 2=Patient will verbalize/demonstrate understanding of assistive devices/modifications for ADL. 3=Patient will improve strength/tolerance for activity to enable patient to perform ADL's. Speech Usp Goals Access Director Goals The patient will improve his cognitive function in order to return home safely. Met GERMAIN GUZMAN PT September 20, 2018 11:01
== END 2018-09-20 10:15 | disposition home or self-care (01) | DRG 195 ==
PROVIDERS: ADMIT Internal Medicine; ATTEND Internal Medicine
DX: J18.9 Pneumonia, unspecified organism (principal); I10 Essential (primary) hypertension; G62.9 Polyneuropathy, unspecified; R32 Unspecified urinary incontinence; K21.9 Gastro-esophageal reflux disease without esophagitis; F32.9 Major depressive disorder, single episode, unspecified; G89.29 Other chronic pain; M19.91 Primary osteoarthritis, unspecified site; Z85.46 Personal history of malignant neoplasm of prostate; Z85.118 Personal history of other malignant neoplasm of bronchus and lung; Z90.79 Acquired absence of other genital organ(s); Z87.820 Personal history of traumatic brain injury; Z87.891 Personal history of nicotine dependence
CPT/HCPCS: 36415; 80053; 85025; 94640; 94760

== ENCOUNTER → 2018-11-12 | Outpatient (CLI) | payer MEDICARE, OTHER ==
[~2018-11-12] MED LIST changes: +CARB15DR OD; +FENT1PAT60 TD; +HOLD METFORMIN - RECEIVED CONTRAST 20 ML VIAL IV SCH; +IBUP-2055 PO; +IOHEXOL 350 MG/ML 100 ML (OMNIPAQUE 350) VIAL IV ONE; +MINE3.5O2 OU; +MINE3.5O4 OD; +NS 100 ML (IVPB) BAG IV ONE; +NYST15CR TOP; +OMEP20CA12 PO; +PRED5DRO24 OD; +SENN-145 PO; +TAMS0.4C98 PO; +TRIA80OI TOP
[2018-11-12 11:20] LABS: BASOPHILS % (AUTO) 1 % (0-10); EOSINOPHILS % (AUTO) 8 % (0-10); HEMATOCRIT 38 % (40-54); HEMOGLOBIN 12.2 G/DL (13.3-17.7); LYMPHOCYTES % (AUTO) 25 % (12-44); MEAN CORPUSCULAR HEMOGLOBIN 28 PG (25-34); MEAN CORPUSCULAR HGB CONC 32 G/DL (32-36); MEAN CORPUSCULAR VOLUME 89 FL (80-99); MEAN PLATELET VOLUME 10.4 FL (7.4-10.4); MONOCYTES % (AUTO) 8 % (0-12); NEUTROPHILS % (AUTO) 58 % (42-75); PLATELET COUNT 244 10^3/uL (130-400); RED CELL DISTRIBUTION WIDTH 13.9 % (10.0-14.5); WHITE BLOOD COUNT 5.7 10^3/uL (4.3-11.0)
[2018-11-12 11:21] LABS: EOSINOPHILS # (AUTO) 0.5 10^3/uL (0.0-0.3); LYMPHOCYTES # (AUTO) 1.5 X 10^3 (1.0-4.0); MONOCYTES # (AUTO) 0.4 X 10^3 (0.0-1.0); NEUTROPHILS # (AUTO) 3.3 X 10^3 (1.8-7.8)
[2018-11-12 11:40] LABS: ALANINE AMINOTRANSFERASE 35 U/L (0-55); ALKALINE PHOSPHATASE 167 U/L (40-136); BILIRUBIN,TOTAL 0.2 MG/DL (0.1-1.0); BUN/CREATININE RATIO 14; CALCIUM 8.9 MG/DL (8.5-10.1); CARBON DIOXIDE 28 MMOL/L (21-32); CHLORIDE 102 MMOL/L (98-107); CREATININE SERUM 0.76 MG/DL (0.60-1.30); GFR ESTIMATED > 60; GLUCOSE 104 MG/DL (70-105); POTASSIUM 4.1 MMOL/L (3.6-5.0); SODIUM 142 MMOL/L (135-145); TOTAL PROTEIN 6.8 GM/DL (6.4-8.2)
[2018-11-12 11:52] LABS: BAND NEUTROPHILS 2 %; BASOPHILS % (MANUAL) 0 %; EOSINOPHILS % (MANUAL) 10 %; LYMPHOCYTES % (MANUAL) 24 %; MONOCYTES % (MANUAL) 12 %; NEUTROPHILS % (MANUAL) 52 %
--- NOTE | 2018-11-12 13:18 | Diagnostic Imaging Report ---
PROCEDURE: CT chest with contrast only. TECHNIQUE: Multiple contiguous axial images were obtained through the chest after administration of intravenous contrast. Auto Exposure Controls were utilized during the CT exam to meet ALARA standards for radiation dose reduction. INDICATION: Malignant neoplasm right middle lobe bronchus. The previous CT chest exam performed at [facility] in [place], [place] on 01/03/2018 is not available for direct comparison at this time. This exam did note slight interval enlargement of the flat shaped right middle lobe mass. The mass measures 1.7 x 3.2 cm. In the previous CT chest exam performed at this institution on 06/16/2018 with complete consolidation of the left lung base. This is felt to be related to pneumonia. There are also scattered areas of pneumonia/atelectasis throughout both lungs. There was also a flat shaped parenchymal density in the right middle lobe measuring 2.1 x 4.3 cm this may have been related to the finding of the 01/10/2018 exam. On this exam the left lung base is much better aerated. There is little if any residual pneumonia/atelectasis still present in this area. There is still a flat parenchymal density in the right middle lobe. This measures 1.6 x 4.0 cm. There may be a small amount of associated atelectasis/infiltrate still present in this area. The lungs are otherwise generally clear. The apical pleural thickening seen of the prostate does not seen to have progressed significantly. The heart size is stable. Coronary artery calcifications are again evident. The aorta is nondilated and there is no sign of dissection. There is no defect within the pulmonary to indicate a pulmonary embolus. There is no mediastinal or hilar adenopathy. The thyroid gland is unremarkable. The sections through the upper abdomen failed to show any sign of an acute abnormality. The cysts associated with the kidney seen previously are again evident and no different. The hilar hernia noted the prostate is also unchanged. The bone windows show no sign of acute fracture or a destructive lesion. Healed rib fractures are again seen on the right. The dorsal stimulator line seen previously is again evident. IMPRESSION: 1. The appearance of the chest has improved since prior exam as the left lung base is much better aerated. There is little if any residual pneumonia/atelectasis still present. 2. The flat lesion in the right middle lobe seen previously again evident and does measure slightly smaller. There may be a small amount of residual atelectasis/infiltrate still present in this area as well. This abnormal parenchyma density could still be neoplastic in nature. 3. There is no acute cardiopulmonary abnormality otherwise. Dictated by: Dictated on workstation # [id number]
== END ==
LOC: RAD FS 10:40
PROVIDERS: ATTEND Internal Medicine Hematology & Oncology
DX: C34.2 Malignant neoplasm of middle lobe, bronchus or lung (principal); Z87.81 Personal history of (healed) traumatic fracture
CPT/HCPCS: 36415; 71260; 80053; 82378; 82784; 85007; 85027

== ENCOUNTER 2018-11-14 11:47 | Inpatient (IN) | payer MEDICARE, OTHER ==
[~2018-11-14] VITALS: Ht 180.3 cm; Wt 77.1 kg
[~2018-11-14 11:47] MED LIST changes: -CARB15DR OD; -HOLD METFORMIN - RECEIVED CONTRAST 20 ML VIAL IV SCH; -IOHEXOL 350 MG/ML 100 ML (OMNIPAQUE 350) VIAL IV ONE; -MINE3.5O4 OD; -NS 100 ML (IVPB) BAG IV ONE; -PRED5DRO24 OD
--- OUTSIDE RECORDS SUMMARY | 2018-11-14 11:58 | XMS REPORT ---
Author Author SANYA SADIA Ramírez [facility] Address [address] [place] [address] Care Team Providers Care Display Mechanic Name Role Phone SADIA SEGUNDO Unavailable PROBLEMS Type Condition ICD9-CM Code TFR26-FX Code Onset Dates Condition Status SNOMED Code Problem Abnormal LFTs (liver function tests) R94.5 Mar, Active 108563481 Problem Panlobular emphysema J43.1 Jul, Active 4222947 Problem Malignant neoplasm of middle lobe of right lung C34.2 14 Sep, 2016 Active 491493050 Problem Neuropathy of leg G57.90 Jun, Active 571871927 Problem Risk for falls Z91.81 Jan, Active 650451845 Problem Status post laparoscopic cholecystectomy Z90.49 24 Jul, 2017 Active 186652629 Problem Generalized weakness R53.1 Feb, Active 59083003 Problem Lung cancer C34.90 Active 33880266 Problem Allergic rhinitis, cause unspecified J30.9 08 Feb, 2011 Active 03560919 Problem Acid indigestion K30 Active 328967745 Problem Memory loss, short term R41.3 Jun, Active 27511743 Problem Essential hypertension, benign I10 08 Feb, 2011 Active 9824348 Problem Unsteady gait R26.81 Jan, Active 362217884 Problem Urinary retention R33.9 Jun, Active 468010841 Problem Hypoxia R09.02 Feb, Active 594689006 ALLERGIES No Information ENCOUNTERS Encounter Location Date Diagnosis [address] [address] Dec, [facility] [address] [place] [address] Sep, Productive cough R05 [address] [address] Sep, [address] [place] [address] Sep, Pneumonia due to infectious organism, unspecified laterality, unspecified part of lung J18.9 and Lung cancer C34.90 [facility] [address] [place] [address] Sep, [facility] [address] [address] Sep, [facility] [address] [address] August, [facility] [address] [place] [address] August, [facility] [place] [address] [address] August, [facility] [address] [place] [address] Jul, [facility] [address] [address] Jul, [facility] [address] [address] Jul, [facility] [address] [place] [address] Jul, [facility] [place] [address] [address] Jul, [facility] [address] [place] [address] Jun, Acid indigestion K30 ; Essential hypertension, benign I10 ; Panlobular emphysema J43.1 and Yeast dermatitis of penis B37.49 [facility] [address] [address] Jun, Lung cancer C34.90 [facility] [place] [address] [address] Jun, [facility] [address] [facility] [id number], [place] [address] Jun, [facility] [address] [address] Jun, [facility] [place] [facility] [address] [place] [address] Jun, [facility] [address] [facility] [place] [address] Jun, [facility] [address] [facility] [place] [address] May, [facility] [address] [place] [address] [place] [address] May, [facility] [address] [place] [address] [place] [address] May, [facility] [address] [place] [address] [place] [address] May, [facility] [address] [place] [address] [place] [address] May, [facility] [address] [id number], [place] [address] Apr, [facility] [address] [id number], [place] [address] Apr, [facility] [address] [id number], [place] [address] Apr, [facility] [address] [id number], [place] [address] Apr, [facility] [address] [id number], [place] [address] Mar, [facility] [address] [id number], [place] [address] Mar, [facility] [address] [id number], [place] [address] Mar, [facility] [address] [id number], [place] [address] Mar, [facility] [address] [id number], [place] [address] Mar, [facility] [address] [id number], [place] [address] Feb, [facility] [address] [facility] [id number], [place] [address] 20 Feb, 2018 [facility] [address] [facility] [id number], [place] [address] 19 Feb, 2018 [facility] [address] [id number], [place] [address] 16 Feb, 2018 [facility] [address] [facility] [id number], [place] [address] 15 Feb, 2018 [facility] [address] [facility] [id number], [place] [address] 14 Feb, 2018 IMMUNIZATIONS No Known Immunizations SOCIAL HISTORY Never Assessed REASON FOR VISIT Controlled Med Refill PLAN OF CARE VITAL SIGNS MEDICATIONS Medication Instructions Dosage Frequency Start Date End Date Duration Status Oxycodone HCl 5 MG Orally every 6 hrs 1 tablet as needed 6h Jun, 28 days Active RESULTS No Results PROCEDURES No Known procedures INSTRUCTIONS MEDICATIONS ADMINISTERED No Known Medications MEDICAL (GENERAL) HISTORY Type Description Date Medical History Lung cancer Surgical History back surgeries, x3 Surgical History enlarged hole into bladder Surgical History lap arsenio Surgical History appendectomy Hospitalization History ran over by a tractor, fx left leg, fx rib bones icu, hosp, rehab w/pneumonia & flu
--- OUTSIDE RECORDS SUMMARY | 2018-11-14 12:01 | XMS REPORT | Continuity of Care Document ---
Author Organization Unknown Address Unknown Allergies Active Description Code Type Severity Reaction Onset Reported/Identified Relationship to Patient Clinical Status Yes No Known Medication Allergies Drug N/A N/A Yes baclofen [id number] Drug Allergy Unknown N/A 06/14/2018 Yes metoclopramide [id number] Drug Allergy Unknown N/A 06/14/2018 Medications There is no data. Problems Date Dx Coded Attending Type Code Diagnosis Diagnosed By 06/05/2018 Zack Cook MD C34.2 Adenocarcinoma, right lung, middle lobe 06/20/2018 KRISTINA NUNEZ MD, Ot E87.6 HYPOKALEMIA 06/20/2018 KRISTINA NUNEZ MD [...] Ot N42.9 DISORDER OF PROSTATE, UNSPECIFIED 06/20/2018 KRISITNA NUNEZ MD Ot R11.2 NAUSEA WITH VOMITING, UNSPECIFIED 06/20/2018 KRISTINA NUNEZ MD Ot R74.8 ABNORMAL LEVELS OF OTHER SERUM ENZYMES 06/20/2018 KRISTINA NUNEZ MD, Ot S06.9X9S UNSP INTRACRANIAL INJURY W LOC OF UNSP D 06/20/2018 KRISTINA NUNEZ MD Ot Z85.118 PERSONAL HISTORY OF MALIGNANT NEOPLASM O 06/20/2018 KRISTINA NUNEZ MD, Ot Z87.820 PERSONAL HISTORY OF TRAUMATIC BRAIN INJU 06/20/2018 KRISTINA NUNEZ MD, Ot Z87.891 PERSONAL HISTORY OF NICOTINE DEPENDENCE 06/20/2018 KRISTINA NUNEZ MD Ot Z92.21 PERSONAL HISTORY OF ANTINEOPLASTIC CHEMO 06/20/2018 KRISTINA NUNEZ MD Ot 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 09/11/2018 KRISTINA NUNEZ MD Ot E87.6 HYPOKALEMIA 09/11/2018 KRISTINA NUNEZ MD Ot F41.9 ANXIETY DISORDER, UNSPECIFIED 09/11/2018 KRISTINA NUNEZ MD Ot G62.9 POLYNEUROPATHY, UNSPECIFIED 09/11/2018 KRISTINA NUNEZ MD Ot G89.21 CHRONIC PAIN DUE TO TRAUMA 09/11/2018 KRISTINA NUNEZ MD Ot H91.91 UNSPECIFIED HEARING LOSS, RIGHT EAR 09/11/2018 KRISTINA NUNEZ MD Ot I10 ESSENTIAL (PRIMARY) HYPERTENSION 09/11/2018 KRISTINA NUNEZ MD Ot I49.3 VENTRICULAR PREMATURE DEPOLARIZATION 09/11/2018 KRISTINA NUNEZ MD Ot I65.21 OCCLUSION AND STENOSIS OF RIGHT CAROTID 09/11/2018 KRISTINA NUNEZ MD Ot J30.2 OTHER SEASONAL ALLERGIC RHINITIS 09/11/2018 KRISTINA NUNEZ MD Ot J44.9 CHRONIC OBSTRUCTIVE PULMONARY DISEASE, U 09/11/2018 KRISTINA NUNEZ MD Ot J69.0 PNEUMONITIS DUE TO INHALATION OF FOOD AN 09/11/2018 KRISTINA NUNEZ MD Ot K59.00 CONSTIPATION, UNSPECIFIED 09/11/2018 KRISTINA NUNEZ MD Ot M19.91 PRIMARY OSTEOARTHRITIS, UNSPECIFIED SITE 09/11/2018 KRISTINA NUNEZ MD Ot N42.9 DISORDER OF PROSTATE, UNSPECIFIED 09/11/2018 KRISTINA NUNEZ MD Ot R11.2 NAUSEA WITH VOMITING, UNSPECIFIED 09/11/2018 KRISTINA NUNEZ MD Ot R19.7 DIARRHEA, UNSPECIFIED 09/11/2018 KRISTINA NUNEZ MD Ot R25.1 TREMOR, UNSPECIFIED 09/11/2018 KRISTINA NUNEZ MD Ot R29.706 NIHSS SCORE 6 09/11/2018 KRISTINA NUNEZ MD Ot R41.0 DISORIENTATION, UNSPECIFIED 09/11/2018 KRISTINA NUNEZ MD Ot R41.82 ALTERED MENTAL STATUS, UNSPECIFIED 09/11/2018 KRISTINA NUNEZ MD Ot R47.01 APHASIA 09/11/2018 KRISTINA NUNEZ MD Ot Z60.2 PROBLEMS RELATED TO LIVING ALONE 09/11/2018 KRISTINA NUNEZ MD Ot Z66 DO NOT RESUSCITATE 09/11/2018 KRISTINA NUNEZ MD Ot Z79.899 OTHER PENITENTIARY (CURRENT) DRUG THERAPY 09/11/2018 KRISTINA NNUEZ MD Ot Z85.118 PERSONAL HISTORY OF MALIGNANT NEOPLASM O 09/11/2018 KRISTINA NUNEZ MD Ot Z87.440 PERSONAL HISTORY OF URINARY (TRACT) INFE 09/11/2018 KRISTINA NUNEZ MD Ot Z87.820 PERSONAL HISTORY OF TRAUMATIC BRAIN INJU 09/11/2018 KRISTINA NUNEZ MD Ot Z87.891 PERSONAL HISTORY OF NICOTINE DEPENDENCE 09/11/2018 KRISTINA NUNEZ MD Ot Z92.21 PERSONAL HISTORY OF ANTINEOPLASTIC CHEMO 09/11/2018 KRISTINA NUNEZ MD Ot 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 09/20/2018 JUANIS MCADAMS BEBETO Ot F32.9 MAJOR DEPRESSIVE DISORDER, SINGLE EPISOD 09/20/2018 JUANIS MCADAMS BEBETO Ot G62.9 POLYNEUROPATHY, UNSPECIFIED 09/20/2018 JUANIS MCADAMS BEBETO Ot G89.29 OTHER CHRONIC PAIN 09/20/2018 JUANIS MCADAMS BEBETO Ot I10 ESSENTIAL (PRIMARY) HYPERTENSION 09/20/2018 BABS OLIVAREZ DOI Ot J18.9 PNEUMONIA, UNSPECIFIED ORGANISM 09/20/2018 BABS OLIVAREZ DOI Ot K21.9 GASTRO-ESOPHAGEAL REFLUX DISEASE WITHOUT 09/20/2018 JUANIS MCADAMS BEBETO Ot M19.91 PRIMARY OSTEOARTHRITIS, UNSPECIFIED SITE 09/20/2018 BEBETO OLIVAREZ DO Ot R32 UNSPECIFIED URINARY INCONTINENCE 09/20/2018 BEBETO OLIVAREZ DO Ot Z85.118 PERSONAL HISTORY OF MALIGNANT NEOPLASM O 09/20/2018 BEBETO OLIVAREZ DO Ot Z85.46 PERSONAL HISTORY OF MALIGNANT NEOPLASM O 09/20/2018 BEBETO OLIVAREZ DO Ot Z87.820 PERSONAL HISTORY OF TRAUMATIC BRAIN INJU 09/20/2018 BEBETO OLIVAREZ DO Ot Z87.891 PERSONAL HISTORY OF NICOTINE DEPENDENCE 09/20/2018 BEBETO OLIVAREZ DO Ot Z90.79 ACQUIRED ABSENCE OF OTHER GENITAL ORGAN( Procedures Code Description Performed By Performed On [id number] DRAINAGE OF LEFT LOWER LUNG LOBE, ENDO, 06/19/2018 [id number] EXTRACTION OF LEFT LOWER LUNG LOBE, ENDO 06/19/2018 Results Test Result Range Blood lactic acid measurement (moles/volume) - 06/14/18 20:35 Blood lactic acid measurement (moles/volume) 1.00 mmol/L 0.50- 2.00 Bacterial blood culture - 06/14/18 20:35 Bacterial blood culture NG [facility] Complete blood count (CBC) [...] INFLUENZA A AND B ANTIGENS BY IA NR Complete urinalysis with reflex to culture - [...] - 06/19/18 07:45 Sputum Gram stain 06-20-2018, 604 [facility] Bacteria identification in bronchial specimen by aerobe culture - 06/19/18 07:45 Bacteria identification in bronchial specimen by aerobe culture [facility] Mycobacterium species detection by organism specific culture [...] - 06/20/18 04:30 Magnesium 1.8 mg/dL 1.8-2.4 CMP - 07/16/18 15:15 GLUCOSE 93 mg/dL 65-99 UREA NITROGEN (BUN) 16 mg/dL 7-25 CREATININE 0.76 mg/dL 0.70-1.18 eGFR NON-AFR. HONDURAN 87 mL/min/1.73m2 > OR=60 eGFR 101 mL/min/1.73m2 > OR=60 BUN/CREATININE RATIO NOT APPLICABLE (calc) 6-22 SODIUM 139 mmol/L 135-146 POTASSIUM 4.0 mmol/L 3.5-5.3 CHLORIDE 103 mmol/L 98-110 CARBON DIOXIDE 31 mmol/L 20-32 CALCIUM 9.3 mg/dL 8.6-10.3 PROTEIN, TOTAL 6.6 g/dL 6.1-8.1 ALBUMIN 4.0 g/dL 3.6-5.1 GLOBULIN 2.6 g/dL (calc) 1.9-3.7 ALBUMIN/GLOBULIN RATIO 1.5 (calc) 1.0-2.5 BILIRUBIN, TOTAL 0.4 mg/dL 0.2-1.2 ALKALINE PHOSPHATASE 179 U/L 40-115 AST 69 U/L 10-35 ALT 108 U/L 9-46 CBC w/MANUAL DIFF - 07/16/18 15:15 WHITE BLOOD CELL COUNT 6.3 Thousand/uL 3.8-10.8 RED BLOOD CELL COUNT 4.36 Million/uL 4.20-5.80 HEMOGLOBIN 12.7 g/dL 13.2-17.1 HEMATOCRIT 38.3 % 38.5-50.0 MCV 87.8 fL 80.0-100.0 MCH 29.1 pg 27.0-33.0 MCHC 33.2 g/dL 32.0-36.0 RDW 12.6 % 11.0-15.0 PLATELET COUNT 216 Thousand/uL 140-400 MPV 11.2 fL 7.5-12.5 ABSOLUTE NEUTROPHILS 1575 cells/uL 2410-1418 ABSOLUTE MONOCYTES 441 cells/uL 200-950 ABSOLUTE EOSINOPHILS 819 cells/uL 15-500 ABSOLUTE BASOPHILS 63 cells/uL 0-200 NEUTROPHILS 25.0 % NRG LYMPHOCYTES 50.0 % NRG MONOCYTES 7.0 % NRG EOSINOPHILS 13.0 % NRG BASOPHILS 1.0 % NRG ABSOLUTE BAND NEUTROPHILS 252 cells/uL 0-750 ABSOLUTE LYMPHOCYTES 3150 cells/uL 850-3900 BAND NEUTROPHILS 4.0 % NRG PLATELET ESTIMATION ADEQUATE ADEQUATE COMMENT(S) NRG CEA - 07/16/18 15:15 CEA 7.8 ng/mL See Note: Complete blood count (CBC) with automated white [...] OF GROWTH Isolated NRG Bacterial blood culture [id number] NRG Capillary blood glucose measurement by glucometer [...] 09/09/18 04:55 BNP level 219.5 pg/mL <100.0 Complete blood count (CBC) with automated white blood cell (WBC) differential - 09/15/18 05:41 Blood leukocytes automated count (number/volume) 5.3 10*3/uL 4.3-11.0 Blood erythrocytes automated count (number/volume) 3.89 10*6/uL 4.35-5.85 Venous blood hemoglobin measurement (mass/volume) 10.9 g/dL 13.3-17.7 Blood hematocrit (volume fraction) 34 % 40-54 Automated erythrocyte mean corpuscular volume 87 [foz_us] 80-99 Automated erythrocyte mean corpuscular hemoglobin (mass per erythrocyte) 28 pg 25-34 Automated erythrocyte mean corpuscular hemoglobin concentration measurement (mass/volume) 32 g/dL 32-36 Automated erythrocyte distribution width ratio 13.7 % 10.0- 14.5 Automated blood platelet count (count/volume) 334 10*3/uL 130-400 Automated blood platelet mean volume measurement 10.2 [foz_us] 7.4-10.4 Automated blood neutrophils/100 leukocytes 44 % 42-75 Automated blood lymphocytes/100 leukocytes 34 % 12-44 Blood monocytes/100 leukocytes 9 % 0-12 Automated blood eosinophils/100 leukocytes 12 % 0-10 Automated blood basophils/100 leukocytes 0 % 0-10 Blood neutrophils automated count (number/volume) 2.4 10*3 1.8-7.8 Blood lymphocytes automated count (number/volume) 1.8 10*3 1.0-4.0 Blood monocytes automated count (number/volume) 0.5 10*3 0.0- 1.0 Automated eosinophil count 0.7 10*3/uL 0.0-0.3 Automated blood basophil count (count/volume) 0.0 10*3/uL 0.0-0.1 Comprehensive metabolic panel - 09/15/18 05:41 Serum or plasma sodium measurement (moles/volume) 138 mmol/L 135-145 Serum or plasma potassium measurement (moles/volume) 3.9 mmol/L 3.6-5.0 Serum or plasma chloride measurement (moles/volume) 104 mmol/L 98-107 Carbon dioxide 25 mmol/L 21-32 Serum or plasma anion gap determination (moles/volume) 9 mmol/L 5-14 Serum or plasma urea nitrogen measurement (mass/volume) 17 mg/dL 7-18 Serum or plasma creatinine measurement (mass/volume) 0.83 mg/dL 0.60-1.30 Serum or plasma urea nitrogen/creatinine mass ratio 20 NRG Serum or plasma creatinine measurement with calculation of estimated glomerular filtration rate > NRG Serum or plasma glucose measurement (mass/volume) 94 mg/dL 70-105 Serum or plasma calcium measurement (mass/volume) 9.4 mg/dL 8.5-10.1 Serum or plasma total bilirubin measurement (mass/volume) 0.2 mg/dL 0.1-1.0 Serum or plasma alkaline phosphatase measurement (enzymatic activity/volume) 100 U/L 40-136 Serum or plasma aspartate aminotransferase measurement (enzymatic activity/volume) 24 U/L 5-34 Serum or plasma alanine aminotransferase measurement (enzymatic activity/volume) 28 U/L 0-55 Serum or plasma protein measurement (mass/volume) 6.5 g/dL 6.4-8.2 Serum or plasma albumin measurement (mass/volume) 3.5 g/dL 3.2-4.5 CALCIUM CORRECTED 9.8 mg/dL 8.5-10.1 Blood CBC with ordered manual differential panel - 11/12/18 10:45 Blood leukocytes automated count (number/volume) 5.7 10*3/uL 4.3-11.0 Blood erythrocytes automated count (number/volume) 4.30 10*6/uL 4.35-5.85 Venous blood hemoglobin measurement (mass/volume) 12.2 g/dL 13.3-17.7 Blood hematocrit (volume fraction) 38 % 40-54 Automated erythrocyte mean corpuscular volume 89 [foz_us] 80-99 Automated erythrocyte mean corpuscular hemoglobin (mass per erythrocyte) 28 pg 25-34 Automated erythrocyte mean corpuscular hemoglobin concentration measurement (mass/volume) 32 g/dL 32-36 Automated erythrocyte distribution width ratio 13.9 % 10.0- 14.5 Automated blood platelet count (count/volume) 244 10*3/uL 130-400 Automated blood platelet mean volume measurement 10.4 [foz_us] 7.4-10.4 Automated blood neutrophils/100 leukocytes 58 % 42-75 Automated blood lymphocytes/100 leukocytes 25 % 12-44 Blood monocytes/100 leukocytes 12 % NRG Automated blood eosinophils/100 leukocytes 8 % 0-10 Automated blood basophils/100 leukocytes 1 % 0-10 Blood neutrophils automated count (number/volume) 3.3 10*3 1.8-7.8 Blood lymphocytes automated count (number/volume) 1.5 10*3 1.0-4.0 Blood monocytes automated count (number/volume) 0.4 10*3 0.0- 1.0 Automated eosinophil count 0.5 10*3/uL 0.0-0.3 Automated blood basophil count (count/volume) 0.0 10*3/uL 0.0-0.1 Manual blood segmented neutrophils/100 leukocytes 52 % NRG Blood band neutrophils/100 leukocytes 2 % NRG Manual blood lymphocytes/100 leukocytes 24 % NRG Manual eosinophils/100 leukocytes in nose 10 % NRG Manual blood basophils/100 leukocytes 0 % NRG Comprehensive metabolic panel - 11/12/18 10:45 Serum or plasma sodium measurement (moles/volume) 142 mmol/L 135-145 Serum or plasma potassium measurement (moles/volume) 4.1 mmol/L 3.6-5.0 Serum or plasma chloride measurement (moles/volume) 102 mmol/L 98-107 Carbon dioxide 28 mmol/L 21-32 [...] NRG Serum or plasma glucose measurement (mass/volume) 104 mg/dL 70-105 Serum or plasma calcium measurement (mass/volume) 8.9 mg/dL 8.5-10.1 Serum or plasma total bilirubin measurement (mass/volume) 0.2 mg/dL 0.1-1.0 Serum or plasma alkaline phosphatase measurement (enzymatic activity/volume) 167 U/L 40-136 Serum or plasma aspartate aminotransferase measurement (enzymatic activity/volume) 44 U/L 5-34 Serum or plasma alanine aminotransferase measurement (enzymatic activity/volume) 35 U/L 0-55 Serum or plasma protein measurement (mass/volume) 6.8 g/dL 6.4-8.2 Serum or plasma albumin measurement (mass/volume) 4.0 g/dL 3.2-4.5 CALCIUM CORRECTED 8.9 mg/dL 8.5-10.1 Serum ragweed IgE antibody assay - 11/12/18 10:45 [id number] 8.6 % 0.0-5.0 Serum or plasma IgG measurement (mass/volume) - 11/12/18 10:45 [id number] 1072 % [id number] Encounters ACCT No. Visit Date/Time Discharge Status Pt. Type Provider Facility Loc./Unit Complaint [id number] 10/22/2018 14:15:00 10/22/2018 23:59:59 [facility] Outpatient SANYA[facility]AD[facility] [id number] 07/16/2018 17:40:00 Document Registration [id number] 09/11/2018 10:45:00 09/20/2018 10:15:00 DIS Inpatient BEBETO OLIVAREZ DO [facility] IRF POLYNEUROPATHY,COPD,DEBILITY [id number] 09/07/2018 01:26:00 09/11/2018 10:40:00 DIS Inpatient KRISTINA NUNEZ MD [facility] 4TH PNEUMONIA,DYSPHASIA,HYPOKALEMIA,N/V/D,CAROTID [id number] 06/15/2018 00:51:00 06/20/2018 11:35:00 DIS Inpatient ENRIQUE DENT, KRISTINA Salas [facility] 4TH PNEUMONIA [id number] 11/12/2018 10:40:00 ACT Outpatient KRYSTIN DENT, KAYCE V [facility] RAD FS MALIGNANT NEOPLASM OF MIDDLE LOBE BRONCHUS OR LUNG [id number] 07/18/2016 09:26:49 ACT V BRAULIO COOK [facility] Surgery greenlight TURP [id number] 10/04/2018 20:06:36 ACT Unknown Zack Cook MD
[2018-11-14] MEDS ORDERED: NS IV 1000 ML 1,000 ML IV SCH (12:02)
--- NOTE | 2018-11-14 12:11 | ED Fever ---
History of Present Illness General Stated Complaint: VOMITING Source: patient, EMS Exam Limitations: clinical condition History of Present Illness Date Seen by Provider: Nov 14, 2018 Time Seen by Provider: 12:00 Initial Comments The patient is a pleasant 77-year-old male presents via EMS for evaluation of confusion as well as nausea and vomiting since yesterday. The patient has a very prominent odor which is consistent with a UTI. He is alert and answering questions appropriately but does seem slightly confused. His primary complaint at this time is nausea. EMS did give the patient 1 dose of Zofran. He is alert, calm, and appears to be in no distress at this time. He denies chest pain or shortness of breath, cough, abdominal or back pain, vision changes, focal weakness or numbness, rash, diarrhea, or syncope. Timing/Duration: yesterday Fever Therapy PATCH WASHER: none Associated Symptoms: confusion Allergies and Home Medications Allergies Coded Allergies: baclofen (Verified Allergy, Unknown, 06/14/18) metoclopramide (Verified Allergy, Unknown, 06/14/18) Home Medications Afatinib Dimaleate 30 Mg Tablet, 30 MG PO DAILY, (Reported) Albuterol Sulfate 1 Puff Puff, 2 PUFF INH Q4H PRN for SHORTNESS OF BREATH, (Reported) 1 PUFF = 90 MCG Amlodipine Besylate 10 Mg Tablet, 10 MG PO DAILY, (Reported) Ascorbic Acid 500 Mg Tablet, 500 MG PO DAILY, (Reported) Calcium Carbonate 200 Mg Tab.chew, 200 MG PO Q6H PRN for INDIGESTION, (Reported) Fentanyl 1 Each Patch.td72, 100 MCG TD Q72H, (Reported) Ferrous Sulfate 325 Mg Tablet, 325 MG PO DAILY, (Reported) Gabapentin 300 Mg Capsule, 600 MG PO TID, (Reported) TAKES 2 (300MG) CAPSULES Ibuprofen 200 Mg Tablet, 400 MG PO Q6H PRN for PAIN-MILD, (Reported) Ipratropium/Albuterol Sulfate 3 Ml Ampul.neb, 3 ML IH Q12H PRN for SHORTNESS OF BREATH, (Reported) Loratadine 10 Mg Tablet, 10 MG PO DAILY, (Reported) Mineral Oil/Petrolatum,White 3.5 Gm Oint...g., OU HS, (Reported) RUB 1/8 INCH INTO LASHES AT BEDTIME Multivitamin 1 Each Tablet, 1 TAB PO DAILY, (Reported) Nystatin 15 Gm Cream..g., TOP BID PRN for RASH, (Reported) Omeprazole 20 Mg Capsule.dr, 20 MG PO DAILY, (Reported) Ondansetron 4 Mg Tab.rapdis, 4 MG PO Q8H PRN for NAUSEA/VOMITING-1ST LINE, (Reported) Oxycodone HCl 5 Mg Tablet, 5 MG PO Q6H PRN for PAIN-SEVERE, (Reported) Paroxetine HCl 20 Mg Tablet, 20 MG PO DAILY, (Reported) Potassium Chloride 10 Meq Tab.er.prt, 20 MEQ PO DAILY, (Reported) TAKES 2 (10MEQ) TABLETS Sennosides/Docusate Sodium 1 Each Tablet, 1 TAB PO DAILY PRN for CONSTIPATION- 5TH LINE, (Reported) Tamsulosin HCl 0.4 Mg Cap, 0.4 MG PO 1800, (Reported) Triamcinolone Acetonide 80 Gm Oint...g., TOP BID, (Reported) Umeclidinium Brm/Vilanterol Tr 1 Each Blst.w.dev, 1 PUFF IH DAILY, (Reported) LAST FILLED 05-23-18 Patient Home Medication List Home Medication List Reviewed: Yes Review of Systems Review of Systems Constitutional: fever, malaise, weakness EENTM: no symptoms reported Respiratory: no symptoms reported Cardiovascular: no symptoms reported Genitourinary: dysuria, frequency Musculoskeletal: no symptoms reported Skin: change in color (left lower leg redness) Psychiatric/Neurological: Other (confusion) Hematologic/Lymphatic: No Symptoms Reported Immunological/Allergic: no symptoms reported All Other Systems Reviewed Negative Unless Noted: Yes Past Bkaahhk-Ghkair-Bpjslb Hx Patient Social History Alcohol Beverage of Choice: Beer, Whiskey Type Used: Cigarettes Former Smoker, Quit: Apr 23, 1969 2nd Hand Smoke Exposure: No Recent Hopitalizations: Yes Immunizations Up To Date Date of Pneumonia Vaccine: Feb 04, 2016 Date of Influenza Vaccine: Jan 09, 2018 Seasonal Allergies Seasonal Allergies: Yes Past Medical History Surgeries: Yes Eye Surgery, Orthopedic Respiratory: Yes (has home 02, has only used once in 2 years) Pneumonia, COPD Currently Using CPAP: No Currently Using BIPAP: No Cardiac: Yes Hypertension Neurological: No Concussion, Neuropathy, Traumatic Brain Injury Genitourinary: Yes (urinary incontinence) Prostate Problems, UTI-Chronic Gastrointestinal: Yes Abdominal Hernia Musculoskeletal: Yes (chronic pain from trauma, run over by a tractor) Arthritis, Back Injury, Chronic Back Pain Endocrine: No HEENT: Yes (dry eyes, doesn't make tears) Loss of Vision: Right Hearing Impairment: Hard of Hearing, Hearing Aide Right, Deaf Cancer: Yes Lung Did You Recieve Any Treatments: Yes What Type of Treatment Did You: Chemotherapy Psychosocial: No Integumentary: Yes (thin/frail) Blood Disorders: No Adverse Reaction/Blood Tranf: No Family Medical History No Pertinent Family Hx Physical Exam Capillary Refill : Height: 5'10.00" Weight: 171lbs. 15.4oz. 78.659631si; 22.7 BMI Method:Estimated General Appearance: WD/WN, no apparent distress, other (is warm to touch) Eyes: Bilateral Eye Normal Inspection, Bilateral Eye PERRL, Bilateral Eye EOMI HEENT: PERRL/EOMI, normal ENT inspection Neck: non-tender, full range of motion, supple, normal inspection Respiratory: chest non-tender, lungs clear, normal breath sounds, no respiratory distress, no accessory muscle use Cardiovascular: no edema, no gallop, no JVD, no murmur, tachycardia Gastrointestinal: normal bowel sounds, non tender, soft, no organomegaly, no pulsatile mass Extremities: normal range of motion, normal capillary refill, other (left lower leg with some redness and warmth, mild pitting edema bilaterally) Neurologic/Psychiatric: foreign exchange services 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 II-XII nml as tested, alert, normal mood/affect Skin: normal color, warm/dry Focused Exam Lactate Level 11/14/18 12:00: Lactic Acid Level 1.13 Lactic Acid Level Laboratory Tests Test 11/14/18 12:00 Lactic Acid Level 1.13 MMOL/L (0.50-2.00) Progress/Results/Core Measures Suspected Sepsis SIRS Temperature: Pulse: Respiratory Rate: Laboratory Tests 11/14/18 12:00: White Blood Count 16.7H Blood Pressure / Mean: 11/14/18 12:00: Lactic Acid Level 1.13 Laboratory Tests 11/14/18 12:00: Creatinine 0.95, INR Comment 1.1, Platelet Count 185, Total Bilirubin 0.7 Results/Orders Lab Results Laboratory Tests Test 11/14/18 12:00 11/14/18 12:19 Range/Units White Blood Count 16.7 H 4.3-11.0 10^3/uL Red Blood Count 4.26 L 4.35-5.85 10^6/uL Hemoglobin 12.2 L 13.3-17.7 G/DL Hematocrit 38 L 40-54 % Mean Corpuscular Volume 88 80-99 FL Mean Corpuscular Hemoglobin 29 25-34 PG Mean Corpuscular Hemoglobin Concent 32 32-36 G/DL Red Cell Distribution Width 14.6 H 10.0-14.5 % Platelet Count 185 130-400 10^3/uL Mean Platelet Volume 10.9 H 7.4-10.4 FL Neutrophils (%) (Auto) 92 H 42-75 % Lymphocytes (%) (Auto) 5 L 12-44 % Monocytes (%) (Auto) 3 0-12 % Eosinophils (%) (Auto) 0 0-10 % Basophils (%) (Auto) 0 0-10 % Neutrophils # (Auto) 15.3 H 1.8-7.8 X 10^3 Lymphocytes # (Auto) 0.8 L 1.0-4.0 X 10^3 Monocytes # (Auto) 0.5 0.0-1.0 X 10^3 Eosinophils # (Auto) 0.0 0.0-0.3 10^3/uL Basophils # (Auto) 0.0 0.0-0.1 10^3/uL Neutrophils % (Manual) 60 % Lymphocytes % (Manual) 3 % Monocytes % (Manual) 2 % Band Neutrophils 35 % Blood Morphology Comment NORMAL Prothrombin Time 15.1 H 12.2-14.7 SEC INR Comment 1.1 0.8-1.4 Activated Partial Thromboplast Time 30 24-35 SEC Sodium Level 139 135-145 MMOL/L Potassium Level 3.5 L 3.6-5.0 MMOL/L Chloride Level 101 98-107 MMOL/L Carbon Dioxide Level 25 21-32 MMOL/L Anion Gap 13 5-14 MMOL/L Blood Urea Nitrogen 18 7-18 MG/DL Creatinine 0.95 0.60-1.30 MG/DL Estimat Glomerular Filtration Rate > 60 BUN/Creatinine Ratio 19 Glucose Level 134 H 70-105 MG/DL Lactic Acid Level 1.13 0.50-2.00 MMOL/L Calcium Level 8.4 L 8.5-10.1 MG/DL Corrected Calcium 8.7 8.5-10.1 MG/DL Total Bilirubin 0.7 0.1-1.0 MG/DL Aspartate Amino Transf (AST/SGOT) 39 H 5-34 U/L Alanine Aminotransferase (ALT/SGPT) 25 0-55 U/L Alkaline Phosphatase 117 40-136 U/L Troponin I < 0.30 <0.30 NG/ML Total Protein 6.6 6.4-8.2 GM/DL Albumin 3.6 3.2-4.5 GM/DL Urine Color YELLOW Urine Clarity CLEAR Urine pH 6.0 5-9 Urine Specific [place] 1.020 1.016-1.022 Urine Protein TRACE H NEGATIVE Urine Glucose (UA) NEGATIVE NEGATIVE Urine Ketones TRACE H NEGATIVE Urine Nitrite NEGATIVE NEGATIVE Urine Bilirubin NEGATIVE NEGATIVE Urine Urobilinogen 0.2 NORMAL MG/DL Urine Leukocyte Esterase NEGATIVE NEGATIVE Urine RBC (Auto) 1+ H NEGATIVE Urine RBC 10-25 H /HPF Urine WBC RARE /HPF Urine Squamous Epithelial Cells RARE /HPF Urine Renal Epithelial Cells 5-10 /HPF Urine Crystals PRESENT H /LPF Urine Amorphous Sediment FEW JOSE URATES H /LPF Urine Bacteria NEGATIVE /HPF Urine Casts NONE /LPF Urine Mucus SMALL H /LPF Urine Culture Indicated CULTURE PENDING My Orders Orders - ANGELLA VELASQUEZ DO Cbc With Automated Diff (11/14/18 12:02) Comprehensive Metabolic Panel (11/14/18 12:02) Blood Culture (11/14/18 12:02) Sputum Culture (11/14/18 12:02) Urinalysis (11/14/18 12:02) Urine Culture (11/14/18 12:02) Protime With Inr (11/14/18 12:02) Partial Thromboplastin Time (11/14/18 12:02) Chest 1 View Ap/Pa Only (11/14/18 12:02) Acetaminophen Tablet (Tylenol Tablet) (11/14/18 12:15) Ed Iv/Invasive Line Start (11/14/18 12:02) Troponin I (11/14/18 12:02) Ondansetron Injection (Zofran Injectio (11/14/18 12:15) O2 (11/14/18 12:02) Lactic Acid Analyzer (11/14/18 12:02) Ns Iv 1000 Ml (Sodium Chloride 0.9%) (11/14/18 12:02) Fecal Occult Bedside (11/14/18 12:24) Manual Differential (11/14/18 12:00) Clindamycin 600 Mg/50 Ml Ivpb (Cleocin P (11/14/18 13:30) Medications Given in ED Current Medications Medications Dose Ordered Sig/Nunu Route Start Time Stop Time Status Last Admin Dose Admin Acetaminophen 1,000 mg ONCE PRN PO 11/14/18 12:15 11/14/18 12:27 DC 11/14/18 12:25 1,000 MG Ondansetron HCl 4 mg PRN PRN IV 11/14/18 12:15 11/14/18 12:27 DC 11/14/18 12:20 4 MG Vital Signs/I&O Capillary Refill : Progress Note : Progress Note @1335 - Patient informed of lab results. His clinical evidence of a left lower leg cellulitis. Clindamycin has been ordered. He smells of a urinary tract infection however is urine does not appear clearly infected and a urine culture has been sent. He is agreeable to admission at [facility]. Departure Communication (Admissions) Time/Spoke to Admitting Phy: 13:35 Dr. Ho excepts the admission at [facility] at this time. Impression Primary Impression: Left leg cellulitis Additional Impressions: Confusion Nausea & vomiting Disposition: ADMITTED INPATIENT Condition: Stable Admissions Decision to Admit Reason: Admit from ER (General) Decision to Admit/Date: Nov 14, 2018 Time/Decision to Admit Time: 13:30 Departure-Patient Inst. Referrals: SADIA SEGUNDO MD (PCP/Family) Primary Care Physician ANGELLA VELASQUEZ DO Nov 14, 2018 12:11
[2018-11-14] MEDS ORDERED: ACETAMINOPHEN 500 MG TAB (TYLENOL) PO PRN (12:15)
[2018-11-14] MEDS ORDERED: ONDANSETRON 4 MG/2 ML (SDV) Z0FRAN IV PRN (12:15)
[2018-11-14 12:52] LABS: INR 1.1 (0.8-1.4); PROTHROMBIN TIME PATIENT 15.1 SEC (12.2-14.7)
[2018-11-14 12:53] LABS: BILIRUBIN,URINE NEGATIVE (NEGATIVE); CLARITY,URINE CLEAR; COLOR,URINE YELLOW; GLUCOSE, URINE (UA) NEGATIVE (NEGATIVE); LEUKOCYTE ESTERASE ,URINE NEGATIVE (NEGATIVE); NITRITE,URINE NEGATIVE (NEGATIVE); PROTEIN,URINE TRACE (NEGATIVE); UROBILINOGEN,URINE 0.2 MG/DL (NORMAL)
[2018-11-14 12:54] LABS: KETONES,URINE TRACE (NEGATIVE)
[2018-11-14 13:10] LABS: EOSINOPHILS % (AUTO) 0 % (0-10); HEMATOCRIT 38 % (40-54); HEMOGLOBIN 12.2 G/DL (13.3-17.7); LYMPHOCYTES % (AUTO) 5 % (12-44); MEAN CORPUSCULAR HEMOGLOBIN 29 PG (25-34); MEAN CORPUSCULAR HGB CONC 32 G/DL (32-36); MEAN CORPUSCULAR VOLUME 88 FL (80-99); MEAN PLATELET VOLUME 10.9 FL (7.4-10.4); MONOCYTES % (AUTO) 3 % (0-12); NEUTROPHILS % (AUTO) 92 % (42-75); PLATELET COUNT 185 10^3/uL (130-400); RED CELL DISTRIBUTION WIDTH 14.6 % (10.0-14.5); WHITE BLOOD COUNT 16.7 10^3/uL (4.3-11.0)
[2018-11-14 13:11] LABS: BASOPHILS % (AUTO) 0 % (0-10); LYMPHOCYTES # (AUTO) 0.8 X 10^3 (1.0-4.0); MONOCYTES # (AUTO) 0.5 X 10^3 (0.0-1.0); NEUTROPHILS # (AUTO) 15.3 X 10^3 (1.8-7.8)
[2018-11-14 13:12] LABS: BAND NEUTROPHILS 35 %; CARBON DIOXIDE 25 MMOL/L (21-32); CHLORIDE 101 MMOL/L (98-107); LYMPHOCYTES % (MANUAL) 3 %; MONOCYTES % (MANUAL) 2 %; NEUTROPHILS % (MANUAL) 60 %; POTASSIUM 3.5 MMOL/L (3.6-5.0); RBC MORPH NORMAL; SODIUM 139 MMOL/L (135-145)
[2018-11-14 13:13] LABS: ALANINE AMINOTRANSFERASE 25 U/L (0-55); ALBUMIN 3.6 GM/DL (3.2-4.5); ALKALINE PHOSPHATASE 117 U/L (40-136); BILIRUBIN,TOTAL 0.7 MG/DL (0.1-1.0); BUN/CREATININE RATIO 19; CALCIUM 8.4 MG/DL (8.5-10.1); CREATININE SERUM 0.95 MG/DL (0.60-1.30); GFR ESTIMATED > 60; GLUCOSE 134 MG/DL (70-105); TOTAL PROTEIN 6.6 GM/DL (6.4-8.2)
--- NOTE | 2018-11-14 13:16 | Diagnostic Imaging Report ---
INDICATION: Nausea and vomiting. FINDINGS: Heart size is normal. There is mild venous congestion. There is some bibasilar atelectasis and/or pneumonitis. There is no pleural effusion or pneumothorax. Mediastinum is unremarkable. IMPRESSION: Mild venous congestion with some bibasilar atelectasis and/or pneumonitis. Dictated by: Dictated on workstation # [id number]
[2018-11-14 13:18] LABS: BACTERIA,URINE NEGATIVE /HPF; SQUAMOUS EPITHELIAL CELL,UR RARE /HPF; WBC,URINE RARE /HPF
[2018-11-14 13:19] LABS: AMORPHOUS SEDIMENT,UR FEW AMOR URATES /LPF
[2018-11-14] MEDS ORDERED: CLINDAMYCIN 600 MG/50 ML IVPB 50 ML IV ONE (13:30)
--- OUTSIDE RECORDS SUMMARY | 2018-11-14 14:05 | XMS REPORT | Continuity of Care Document ---
Author Organization Unknown Address Unknown Allergies Active Description Code Type Severity Reaction Onset Reported/Identified Relationship to Patient Clinical Status Yes No Known Medication Allergies Drug N/A N/A Yes baclofen [id number] Drug Allergy Unknown N/A 06/14/2018 Yes metoclopramide [id number] Drug Allergy Unknown N/A 06/14/2018 Medications There [...] KRISTINA NUNEZ MD Ot R47.01 APHASIA 09/11/2018 KRSITINA NUNEZ MD Ot Z60.2 PROBLEMS RELATED TO LIVING ALONE 09/11/2018 KRISTINA NUNEZ MD Ot Z66 DO NOT RESUSCITATE 09/11/2018 KRISTINA NUNEZ MD Ot Z79.899 OTHER JAIL (CURRENT) DRUG THERAPY 09/11/2018 KRISTINA NUNEZ MD Ot Z85.118 PERSONAL HISTORY [...] Procedures Code Description Performed By Performed On [id number] DRAINAGE OF LEFT LOWER LUNG LOBE, ENDO, 06/19/2018 [id number] EXTRACTION OF LEFT LOWER LUNG LOBE, ENDO 06/19/2018 Results Test Result Range Blood lactic acid measurement (moles/volume) - 06/14/18 20:35 Blood lactic acid measurement (moles/volume) 1.00 mmol/L 0.50- 2.00 Bacterial blood culture - 06/14/18 20:35 Bacterial blood culture NG [facility] Complete blood count (CBC) with [...] 06/19/18 07:45 Sputum Gram stain 06-20-2018, 604 [facility] Bacteria identification in bronchial specimen by aerobe culture - 06/19/18 07:45 Bacteria identification in bronchial specimen by aerobe culture [facility] Mycobacterium species detection by organism specific culture [...] 7-25 CREATININE 0.76 mg/dL 0.70-1.18 eGFR NON-AFR. VENEZUELAN 87 mL/min/1.73m2 > OR=60 eGFR 101 mL/min/1.73m2 [...] 11.2 fL 7.5-12.5 ABSOLUTE NEUTROPHILS 1575 cells/uL 3958-5504 ABSOLUTE MONOCYTES 441 cells/uL 200-950 ABSOLUTE EOSINOPHILS [...] OF GROWTH Isolated NRG Bacterial blood culture [id number] NRG Capillary blood glucose measurement by glucometer [...] ragweed IgE antibody assay - 11/12/18 10:45 [id number] 8.6 % 0.0-5.0 Serum or plasma IgG measurement (mass/volume) - 11/12/18 10:45 [id number] 1072 % 672-1680 PT panel in platelet poor plasma by coagulation assay - 11/14/18 12:00 Prothrombin time (PT) in platelet poor plasma by coagulation assay 15.1 s 12.2-14.7 INR in platelet poor plasma or blood by coagulation assay 1.1 0.8-1.4 Activated partial thromboplastin time (aPTT) in platelet poor plasma bycoagulation assay - 11/14/18 12:00 Activated partial thromboplastin time (aPTT) in platelet poor plasma bycoagulation assay 30 s 24-35 Blood lactic acid measurement (moles/volume) - 11/14/18 12:00 Blood lactic acid measurement (moles/volume) 1.13 mmol/L 0.50- 2.00 Complete blood count (CBC) with automated white blood cell (WBC) differential - 11/14/18 12:00 Blood leukocytes automated count (number/volume) 16.7 10*3/uL 4.3-11.0 Blood erythrocytes automated count (number/volume) 4.26 10*6/uL 4.35-5.85 Venous blood hemoglobin measurement (mass/volume) 12.2 g/dL 13.3-17.7 Blood hematocrit (volume fraction) 38 % 40-54 Automated erythrocyte mean corpuscular volume 88 [foz_us] 80-99 Automated erythrocyte mean corpuscular hemoglobin (mass per erythrocyte) 29 pg 25-34 Automated erythrocyte mean corpuscular hemoglobin concentration measurement (mass/volume) 32 g/dL 32-36 Automated erythrocyte distribution width ratio 14.6 % 10.0- 14.5 Automated blood platelet count (count/volume) 185 10*3/uL 130-400 Automated blood platelet mean volume measurement 10.9 [foz_us] 7.4-10.4 Automated blood neutrophils/100 leukocytes 92 % 42-75 Automated blood lymphocytes/100 leukocytes 5 % 12-44 Blood monocytes/100 leukocytes 3 % 0-12 Automated blood eosinophils/100 leukocytes 0 % 0-10 Automated blood basophils/100 leukocytes 0 % 0-10 Blood neutrophils automated count (number/volume) 15.3 10*3 1.8-7.8 Blood lymphocytes automated count (number/volume) 0.8 10*3 1.0-4.0 Blood monocytes automated count (number/volume) 0.5 10*3 0.0- 1.0 Automated eosinophil count 0.0 10*3/uL 0.0-0.3 Automated blood basophil count (count/volume) 0.0 10*3/uL 0.0-0.1 Manual absolute plasma cell count - 11/14/18 12:00 Blood monocytes/100 leukocytes 2 % NRG Manual blood segmented neutrophils/100 leukocytes 60 % NRG Blood band neutrophils/100 leukocytes 35 % NRG Manual blood lymphocytes/100 leukocytes 3 % NRG Blood erythrocyte morphology finding identification NORMAL [facility] Comprehensive metabolic panel - 11/14/18 12:00 Serum or plasma sodium measurement (moles/volume) 139 mmol/L 135-145 Serum or plasma potassium measurement (moles/volume) 3.5 mmol/L 3.6-5.0 Serum or plasma chloride measurement (moles/volume) 101 mmol/L 98-107 Carbon dioxide 25 mmol/L 21-32 Serum or plasma anion gap determination (moles/volume) 13 mmol/L 5-14 Serum or plasma urea nitrogen measurement (mass/volume) 18 mg/dL 7-18 Serum or plasma creatinine measurement (mass/volume) 0.95 mg/dL 0.60-1.30 Serum or plasma urea nitrogen/creatinine mass ratio 19 NRG Serum or plasma creatinine measurement with calculation of estimated glomerular filtration rate > NRG Serum or plasma glucose measurement (mass/volume) 134 mg/dL 70-105 Serum or plasma calcium measurement (mass/volume) 8.4 mg/dL 8.5-10.1 Serum or plasma total bilirubin measurement (mass/volume) 0.7 mg/dL 0.1-1.0 Serum or plasma alkaline phosphatase measurement (enzymatic activity/volume) 117 U/L 40-136 Serum or plasma aspartate aminotransferase measurement (enzymatic activity/volume) 39 U/L 5-34 Serum or plasma alanine aminotransferase measurement (enzymatic activity/volume) 25 U/L 0-55 Serum or plasma protein measurement (mass/volume) 6.6 g/dL 6.4-8.2 Serum or plasma albumin measurement (mass/volume) 3.6 g/dL 3.2-4.5 CALCIUM CORRECTED 8.7 mg/dL 8.5-10.1 Serum or plasma troponin i.cardiac measurement (mass/volume) - 11/14/18 12:00 Serum or plasma troponin i.cardiac measurement (mass/volume) < ng/mL <0.30 Complete urinalysis with reflex to culture - 11/14/18 12:19 Urine color determination YELLOW NRG Urine clarity determination CLEAR NRG Urine pH measurement by test strip 6.0 5-9 Specific gravity of urine by test strip 1.020 1.016-1.022 Urine protein assay by test strip, semi-quantitative TRACE NEGATIVE Urine glucose detection by automated test strip NEGATIVE NEGATIVE Erythrocytes detection in urine sediment by light microscopy 1+ NEGATIVE Urine ketones detection by automated test strip TRACE NEGATIVE Urine nitrite detection by test strip NEGATIVE NEGATIVE Urine total bilirubin detection by test strip NEGATIVE NEGATIVE Urine urobilinogen measurement by automated test strip (mass/volume) 0.2 mg/dL NORMAL Urine leukocyte esterase detection by dipstick NEGATIVE NEGATIVE Automated urine sediment erythrocyte count by microscopy (number/high power field) [HPF] NR Automated urine sediment leukocyte count by microscopy (number/high power field) RARE NRG Bacteria detection in urine sediment by light microscopy NEGATIVE NRG Squamous epithelial cells detection in urine sediment by light microscopy RARE NRG Crystals detection in urine sediment by light microscopy PRESENT NRG Casts detection in urine sediment by light microscopy NONE NRG Mucus detection in urine sediment by light microscopy SMALL NRG Complete urinalysis with reflex to culture CULTURE PENDING NRG Amorphous sediment detection in urine sediment by light microscopy FEW JOSE URATES NRG Renal epithelial cells detection in urine sediment by light microscopy 5-10 NRG Encounters ACCT No. Visit Date/Time Discharge Status Pt. Type Provider Facility Loc./Unit Complaint [id number] 10/22/2018 14:15:00 10/22/2018 23:59:59 CLS Outpatient SANYA, SADIA [facility] [id number] 07/16/2018 17:40:00 Document Registration [id number] 09/11/2018 10:45:00 09/20/2018 10:15:00 DIS Inpatient BABS OLIVAREZ DOI [facility] IRF POLYNEUROPATHY,COPD,DEBILITY [id number] 09/07/2018 01:26:00 09/11/2018 10:40:00 DIS Inpatient KRISTINA NUNEZ MD [facility] 4TH PNEUMONIA,DYSPHASIA,HYPOKALEMIA,N/V/D,CAROTID [id number] 06/15/2018 00:51:00 06/20/2018 11:35:00 DIS Inpatient KRISTINA NUNEZ MD [facility] 4TH PNEUMONIA [id number] 11/14/2018 12:53:00 Document Registration [id number] 11/12/2018 10:40:00 ACT Outpatient KRYSTIN DENT, KAYCE V 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
[2018-11-14 15:51] VITALS: BP 131/62
--- NOTE | 2018-11-14 16:03 | NUR ---
NOY KAISER JR admitted to room 426-1, with an admitting diagnosis of uti, on 11/14/18 from [facility] [place] via stretcher EMS , accompanied by EMS staff .NOY KAISER JR introduced to surroundings, call light, bed controls, phone, TV, temperature control, lights, meal times, smoking policy, visitor policy, side rail policy, bathrooms and showers. Patient Rights given to patient in the handbook. NOY KAISER JR verbalizes understanding that [facility] is not responsible for the loss or damage to any personal effects or valuables that are kept in the patients posession during their hospitalization. The following Patient Care Plans and discharge were discussed with the patient. NOY KAISER JR verbalizes understanding of Interdisciplinary Patient Education. Patient was informed about the Rapid Response Team and its purpose.
[2018-11-14] MEDS ORDERED: FENT1PAT11 TD (16:48)
[2018-11-14] MEDS ORDERED: CARB15DR OD (16:48)
[2018-11-14] MEDS ORDERED: MINE3.5O4 OD (16:48)
[2018-11-14] MEDS ORDERED: PRED5DRO24 OD (16:48)
--- NOTE | 2018-11-14 16:50 | NUR ---
WENT OVER THE EXT MED HX WITH THE PATIENT AND HE VERIFIED HOW HE TAKES HIS MEDICATIONS TO THE BEST OF HIS ABILITY. HE ADMITS HE IS CONFUSED AND CAN NOT REMEMBER ALL THE DETAILS REGARDING HIS MEDICATIONS. I REVIEWED WHAT HAS BEEN FILLED RECENTLY ACCORDING TO THE EXT MED HX, I NOTED PAST DUE FILL DATES ON A FEW OF THE MEDICATIONS. HE STATES HE TAKES A CANCER MEDICATION THAT COMES BY MAIL FROM [facility]. WHEN I ASKED WHAT DR. BELTRE STATES HE SEES A DRNolberto IN [place] BUT HE IS UNSURE OF THE NAME. I CALLED AND LEFT A MESSAGE WITH [facility] IN [place]. I ALSO CALLED AND REQUESTED A MEDICATION LIST FROM DR. SEGUNDO'S OFFICE, THEY ARE GONE FOR THE DAY BUT LEFT A MESSAGE. I WILL FOLLOW UP IN THE MORNING WHEN THE REQUESTED INFORMATION IS RECEIVED. Addendum: 11/15/18 at 1059 by INDY FONSECA [facility] RECEIVED A MEDICATION LIST FROM DR. SEGNUDO'S OFFICE THIS MORNING. THERE ARE SEVERAL MEDICATIONS NOT ON THAT LIST THAT HAVE BEEN FILLED RECENTLY. I LEFT EVERYTHING THAT HAS BEEN FILLED RECENTLY ON THE MED REC. HE IS PAST DUE FOR REFILL ON THE FLOMAX LAST FILLED #90 07-29-18 - IT IS NOT ON THE LIST FROM DR. SEGUNDO'S OFFICE HOWEVER SOME MEDICATIONS THAT HAVE BEEN FILLED RECENTLY BY DR. SEGUNDO ARE ALSO NOT ON THAT LIST. I NOTED THE PAST DUE FILL DATES ON THE MED REC FOR THIS ONE WELL AT OTHERS. I LEFT THE VENTOLIN AND DUONEB ON THE MED REC DESPITE NOT BEING ABLE TO VERIFY LAST FILL DATES AND THEM NOT BEING ON THE LIST FROM DR. SEGUNDO'S OFFICE. I CALLED DR. DAMON IN [place] AT [phone] AND VERIFIED THE PATIENT IS TO BE TAKING GILOTRIF 30MG DAILY FROM THEIR OFFICE.
[2018-11-14] MEDS ORDERED: NS IV 1000 ML 1,000 ML ONE (17:23)
[2018-11-14] MEDS ORDERED: CATHETER FLUSH 10 ML SYR IV PRN (18:15)
[2018-11-14] MEDS: NS IV 1000 ML 1,000 ML IV SCH (18:17)
[2018-11-14 20:05] VITALS: BP 123/62
[2018-11-14] MEDS ORDERED: RT-ALBUTEROL SULF 2.5 MG/3 ML PRE-MIX VIAL INH PRN (20:45)
[2018-11-14] MEDS ORDERED: cefTRIAXone FOR IV USE 1,000 MG in WATER (STERILE) FOR INJECTION 10 ML IV SCH (20:45)
[2018-11-14] MEDS: CLINDAMYCIN 600 MG/50 ML IVPB 50 ML IV SCH (21:49)
[2018-11-14 23:27] VITALS: BP 131/62
--- NOTE | 2018-11-15 | NUR ---
PT GIVEN OXYIR 2 HOURS AGO AND CONTINUES TO C/O PAIN 01/30. DR. GARZA CALLED NEW ORDERS RECEIVED.
[2018-11-15] MEDS ORDERED: IBUPROFEN 600 MG (MOTRIN) TAB PO ONE (00:17)
[2018-11-15] MEDS ORDERED: IBUPROFEN 600 MG (MOTRIN) TAB PO PRN (00:25)
[2018-11-15 04:00] VITALS: BP 134/63
[2018-11-15] MEDS: NS IV 1000 ML 1,000 ML IV SCH ×2 (04:25→14:27)
[2018-11-15] MEDS: CLINDAMYCIN 600 MG/50 ML IVPB 50 ML IV SCH ×3 (05:50→21:35)
[2018-11-15 06:00] LABS: HEMOGLOBIN 10.9 G/DL (13.3-17.7); MEAN PLATELET VOLUME 10.8 FL (7.4-10.4); RED CELL DISTRIBUTION WIDTH 14.9 % (10.0-14.5); WHITE BLOOD COUNT 10.1 10^3/uL (4.3-11.0)
[2018-11-15] MEDS ORDERED: IBUPROFEN 600 MG (MOTRIN) TAB PO SCH (06:00)
[2018-11-15 06:28] LABS: ALANINE AMINOTRANSFERASE 24 U/L (0-55); ALKALINE PHOSPHATASE 101 U/L (40-136); BILIRUBIN,TOTAL 0.4 MG/DL (0.1-1.0); BUN/CREATININE RATIO 22; CALCIUM 8.6 MG/DL (8.5-10.1); CARBON DIOXIDE 23 MMOL/L (21-32); CHLORIDE 107 MMOL/L (98-107); CREATININE SERUM 0.81 MG/DL (0.60-1.30); GFR ESTIMATED > 60; GLUCOSE 99 MG/DL (70-105); POTASSIUM 2.9 MMOL/L (3.6-5.0); SODIUM 139 MMOL/L (135-145); TOTAL PROTEIN 5.7 GM/DL (6.4-8.2)
--- NOTE | 2018-11-15 07:49 | History & Physical ---
HPI History of Present Illness: Pt came to ER due to chills and weakness starting the night before he came. Per family he started feeling ill around 2 days ago and when a neighbor checked on him, he was disoriented so they brought him to the ER. Family was concerned about UTI, he was confused as well. He was admitted with pneumonia in May and August. Date seen by provider: Nov 15, 2018 Time Seen by Provider: 10:43 Attending Physician Ambrose Ho MD PCP Self,David DENT Consult Date of Admission Nov 14, 2018 at 13:59 Home Medications Home Medications Reviewed patient Home Medication Reconciliation performed by pharmacy medication reconciliations ct scan technician and/or nursing. Patients Allergies have been reviewed. Allergies Coded Allergies: baclofen (Verified Allergy, Unknown, 06/14/18) metoclopramide (Verified Allergy, Unknown, 06/14/18) CPN-Hoyjkv-Oyykeh Hx Patient Social History Alcohol Use: Rarely Uses Recreational Drug Use: No Smoking Status: Former Smoker (quit 50 years ago) Type Used: Cigarettes 2nd Hand Smoke Exposure: No Recent Foreign Travel: No Contact w/other who traveled: No Recent Hopitalizations: No Recent Infectious Disease Expo: No Physical Abuse Screen: No Sexual Abuse: No Immunizations Up To Date Date of Pneumonia Vaccine: Feb 04, 2016 Date of Influenza Vaccine: Jan 09, 2018 Past Medical History PMHx: Chronic pain HTN COPD Lung cancer PSurgHx: Back x 3 Bladder Cholecystectomy Appendectomy Family Medical History Significant Family History: Heart Disease, Cancer, Hypertension Family History: Arthritis Colon cancer Coronary thrombosis Hypertension Myocardial infarction Respiratory disorder Review of Systems ([facility]C) Constitutional: chills, malaise EENTM: nose congestion, throat pain (Last week) Respiratory: No cough, No short of breath Cardiovascular: No chest pain Gastrointestinal: abdominal pain (hernia on left side); No constipation; diarrhea, nausea, vomiting Genitourinary: No dysuria Musculoskeletal: joint pain (chronic right foot pain) Skin: pruritus; No rash Reviewed Test Results Reviewed Test Results Lab Laboratory Tests Test 11/14/18 12:00 11/14/18 12:19 11/15/18 05:33 Range/Units White Blood Count 16.7 H 10.1 4.3-11.0 10^3/uL Red Blood Count 4.26 L 3.81 L 4.35-5.85 10^6/uL Hemoglobin 12.2 L 10.9 L 13.3-17.7 G/DL Hematocrit 38 L 34 L 40-54 % Mean Corpuscular Volume 88 88 80-99 FL Mean Corpuscular Hemoglobin 29 29 25-34 PG Mean Corpuscular Hemoglobin Concent 32 32 32-36 G/DL Red Cell Distribution Width 14.6 H 14.9 H 10.0-14.5 % Platelet Count 185 147 130-400 10^3/uL Mean Platelet Volume 10.9 H 10.8 H 7.4-10.4 FL Neutrophils (%) (Auto) 92 H 42-75 % Lymphocytes (%) (Auto) 5 L 12-44 % Monocytes (%) (Auto) 3 0-12 % Eosinophils (%) (Auto) 0 0-10 % Basophils (%) (Auto) 0 0-10 % Neutrophils # (Auto) 15.3 H 1.8-7.8 X 10^3 Lymphocytes # (Auto) 0.8 L 1.0-4.0 X 10^3 Monocytes # (Auto) 0.5 0.0-1.0 X 10^3 Eosinophils # (Auto) 0.0 0.0-0.3 10^3/uL Basophils # (Auto) 0.0 0.0-0.1 10^3/uL Neutrophils % (Manual) 60 % Lymphocytes % (Manual) 3 % Monocytes % (Manual) 2 % Band Neutrophils 35 % Blood Morphology Comment NORMAL Prothrombin Time 15.1 H 12.2-14.7 SEC INR Comment 1.1 0.8-1.4 Activated Partial Thromboplast Time 30 24-35 SEC Sodium Level 139 139 135-145 MMOL/L Potassium Level 3.5 L 2.9 L 3.6-5.0 MMOL/L Chloride Level 101 107 98-107 MMOL/L Carbon Dioxide Level 25 23 21-32 MMOL/L Anion Gap 13 9 5-14 MMOL/L Blood Urea Nitrogen 18 18 7-18 MG/DL Creatinine 0.95 0.81 0.60-1.30 MG/DL Estimat Glomerular Filtration Rate > 60 > 60 BUN/Creatinine Ratio 19 22 Glucose Level 134 H 99 70-105 MG/DL Lactic Acid Level 1.13 0.50-2.00 MMOL/L Calcium Level 8.4 L 8.6 8.5-10.1 MG/DL Corrected Calcium 8.7 9.4 8.5-10.1 MG/DL Total Bilirubin 0.7 0.4 0.1-1.0 MG/DL Aspartate Amino Transf (AST/SGOT) 39 H 36 H 5-34 U/L Alanine Aminotransferase (ALT/SGPT) 25 24 0-55 U/L Alkaline Phosphatase 117 101 40-136 U/L Troponin I < 0.30 <0.30 NG/ML Total Protein 6.6 5.7 L 6.4-8.2 GM/DL Albumin 3.6 3.0 L 3.2-4.5 GM/DL Urine Color YELLOW Urine Clarity CLEAR Urine pH 6.0 5-9 Urine Specific [place] 1.020 1.016-1.022 Urine Protein TRACE H NEGATIVE Urine Glucose (UA) NEGATIVE NEGATIVE Urine Ketones TRACE H NEGATIVE Urine Nitrite NEGATIVE NEGATIVE Urine Bilirubin NEGATIVE NEGATIVE Urine Urobilinogen 0.2 NORMAL MG/DL Urine Leukocyte Esterase NEGATIVE NEGATIVE Urine RBC (Auto) 1+ H NEGATIVE Urine RBC 10-25 H /HPF Urine WBC RARE /HPF Urine Squamous Epithelial Cells RARE /HPF Urine Renal Epithelial Cells 5-10 /HPF Urine Crystals PRESENT H /LPF Urine Amorphous Sediment FEW JOSE URATES H /LPF Urine Bacteria NEGATIVE /HPF Urine Casts NONE /LPF Urine Mucus SMALL H /LPF Urine Culture Indicated CULTURE PENDING Radiology 11/15/18 CXR: mild venous congestion with bibasilar atelectasis or pneumonitis Physical Exam-([facility]C) Physical Exam Vital Signs VS - Last 72 Hours, by Label 11/14/18 11/14/18 11/14/18 11/14/18 11:56 12:15 13:15 14:15 Temp 98.8 98.8 98.9 98.9 Pulse 64 72 69 70 Resp 22 22 21 20 B/P (MAP) 142/63 (89) 119/59 122/56 121/57 Pulse Ox 96 96 95 95 O2 Delivery Room Air Room Air Room Air Room Air 11/14/18 11/14/18 11/14/18 11/14/18 15:10 15:10 15:51 15:51 Temp 98.8 98.8 98.2 98.2 Pulse 71 71 71 71 Resp 21 21 20 20 B/P (MAP) 109/52 (71) 109/52 131/62 (85) 131/62 Pulse Ox 95 94 91 91 O2 Delivery Room Air Room Air Room Air Room Air 11/14/18 11/14/18 11/14/18 11/14/18 16:21 20:00 20:05 23:27 Temp 98.5 99.9 Pulse 63 69 Resp 20 20 B/P (MAP) 123/62 (82) 131/62 (85) Pulse Ox 93 93 O2 Delivery Room Air Room Air Room Air Room Air 11/15/18 11/15/18 11/15/18 11/15/18 04:00 08:00 08:00 12:00 Temp 98.9 96.8 97.4 Pulse 72 76 59 Resp 20 20 20 B/P (MAP) 134/63 (86) 123/73 (90) 122/59 (80) Pulse Ox 96 92 94 O2 Delivery Room Air Room Air Room Air Room Air Capillary Refill : Less Than 3 Seconds General Appearance: WD/WN, no apparent distress Respiratory: lungs clear, normal breath sounds Cardiovascular: regular rate, rhythm, no murmur Gastrointestinal: normal bowel sounds, non tender, soft Extremities: pedal edema (left) Neurologic/Psychiatric: alert, normal mood/affect, oriented x 3 Skin: other (faint erythema to left gallardo with excoriations) Assessment/Plan Assessment/Plan Admission Status: Inpatient Order (span 2 midnights) Reason for Inpatient Admission: Confusion with infection requiring IV antibiotics (1) Confusion Status: Acute Assessment & Plan: Improved, suspect secondary to UTI and/or cellulitis (2) Left leg cellulitis Status: Acute Assessment & Plan: Clindamycin (3) Essential (primary) hypertension Status: Chronic Assessment & Plan: BP borderline currently, hold home meds. (4) Nausea & vomiting Status: Acute Assessment & Plan: Suspect secondary to infection. Supportive care. (5) Hypokalemia Status: Acute Assessment & Plan: Replace, already on KCl at home, possible side effect of his chemotherapy (6) Chronic pain Status: Chronic Assessment & Plan: Resume home medications (7) Lung cancer Status: Chronic Assessment & Plan: Holding oral chemo currently, trying to get records from Oncology. Qualifiers: (8) DVT prophylaxis Status: Acute Assessment & Plan: Enoxaparin Clinical Quality Measures DVT/VTE Risk/Contraindication: Risk Factor Score Per Nursin RFS Level Per Nursing on Admit: 4+=Very High AMBROSE HO MD Nov 15, 2018 07:49
[2018-11-15 08:00] VITALS: BP 123/73
--- NOTE | 2018-11-15 08:45 | NUR ---
PATIENT PLACED FENTANYL PATCH ON YESTERDAY AT HOME BEFORE ADMISSION - PATCH IN PLACE LEFT SHOULDER AREA
--- NOTE | 2018-11-15 08:46 | NUR ---
Initial visit: Rapport established with pt during his last hospital admission for pneumonia. He mentioned that at that time he was told to not take his "cancer pills" and asked if he should take him. He first thought I was the doctor and then recalled me from our previous visits. Pt is somewhat hard of hearing, however can communicate well. His nurse, Elizabeth, came in during our visit and told him the doctor would see him today and answer his questions about medication. The pt demonstrates a kind and gentle spirit. He is [employer]ism by affiliation, and describes his belief in Karl Roberto as a source of inner strength, worth, and comfort. He requested prayer.
[2018-11-15] MEDS: POTASSIUM CL 10MEQ/50ML IVPB 50 ML IV SCH ×6 (08:50→14:26)
[2018-11-15] MEDS ORDERED: fentaNYL PATCH 100 MCG (DURAGESIC) TD SCH (09:00)
[2018-11-15 12:00] VITALS: BP 122/59
[2018-11-15] MEDS ORDERED: PHARMACY TO DOSE SQ SCH (13:00)
[2018-11-15] MEDS ORDERED: RT-ALBUTEROL/IPRATROPIUM 3 ML (DUONEB) VIAL IH PRN (13:00)
[2018-11-15] MEDS ORDERED: ONDANSETRON 4 MG (ZOFRAN) ORAL DISSOLVE TAB PO PRN (13:00)
[2018-11-15] MEDS ORDERED: NON-FORMULARY MEDICATION 1 EA EA (Ibuprofen 400 MG) PO PRN (13:00)
[2018-11-15] MEDS ORDERED: NYSTATIN CREAM (MYCOSTATIN) 30 GM TUBE TP PRN (13:00)
[2018-11-15] MEDS ORDERED: NON-FORMULARY MEDICATION 1 EA EA (Carboxymethylcellulose Sodium (Refresh Tears) 1 DROP) OD SCH (13:00)
[2018-11-15] MEDS: GABAPENTIN 300 MG (NEURONTIN) CAP PO SCH ×2 (14:26→19:37)
[2018-11-15] MEDS: ARTIFICAL TEARS 0.4 ML UNIT DOSE (REFRESH PLUS) OD SCH ×6 (14:27→23:20)
[2018-11-15] MEDS: ENOXAPARIN 40 MG/0.4 ML (LOVENOX) SYR SC SCH (14:27)
--- NOTE | 2018-11-15 14:35 | NUR ---
Met with pt and his son Robert who lives near [place], [place]. This is pt 's fourth admission since May. His most recent admission was in August when he was discharged from our Acute Rehab to his home in [place], [place]. Pt is a and lives alone but is active in the community and serves on the [employer] and works a the local [employer] twice a week. He has a homemaker who assists him as a homemaker and visits daily. He drives and last week received visits from family members who stated that on Sunday when they left he seemed OK. They are surprised as to how quickly he becomes acutely ill and confused requiring hospitalization.Pt has a cancer diagnosis and is treated by Dr. Zaldivar in [place], [place] and states he is to see Dr. Zaldivar next week to obtain restaging report. In the past pt has intermittently been admitted to [facility] when he suffers from debility. He then recovers and returns home. Currently, pt and family are aware of recommendation for pt to pursue continued care placement but on this date they are unsure of their plan.
[2018-11-15] MEDS ORDERED: PATIENT MAY USE OWN MEDS, ALL MC SCH (15:00)
[2018-11-15] MEDS: IBUPROFEN TABLET 200 MG TAB PO PRN (16:19)
[2018-11-15 16:30] VITALS: BP 119/63
[2018-11-15] MEDS: TAMSULOSIN 0.4 MG (FLOMAX) CAP PO SCH (18:29)
[2018-11-15] MEDS: prednisoLONE 1% OPTH (PRED FORTE) 5 ML BTL OD SCH (19:38)
[2018-11-15 19:40] VITALS: BP 137/63
[2018-11-16] VITALS (7 sets, daily range): BP systolic 106–155; BP diastolic 57–71
[2018-11-16] MEDS: ARTIFICAL TEARS 0.4 ML UNIT DOSE (REFRESH PLUS) OD SCH ×12 (01:31→23:57)
[2018-11-16 05:08] LABS: HEMOGLOBIN 10.7 G/DL (13.3-17.7); MEAN PLATELET VOLUME 10.9 FL (7.4-10.4); RED CELL DISTRIBUTION WIDTH 14.6 % (10.0-14.5); WHITE BLOOD COUNT 6.4 10^3/uL (4.3-11.0)
[2018-11-16 05:24] LABS: ALANINE AMINOTRANSFERASE 20 U/L (0-55); ALKALINE PHOSPHATASE 92 U/L (40-136); BILIRUBIN,TOTAL 0.2 MG/DL (0.1-1.0); BUN/CREATININE RATIO 14; CALCIUM 8.4 MG/DL (8.5-10.1); CARBON DIOXIDE 24 MMOL/L (21-32); CHLORIDE 106 MMOL/L (98-107); CREATININE SERUM 0.79 MG/DL (0.60-1.30); GFR ESTIMATED > 60; GLUCOSE 93 MG/DL (70-105); MAGNESIUM 1.4 MG/DL (1.8-2.4); POTASSIUM 3.7 MMOL/L (3.6-5.0); SODIUM 138 MMOL/L (135-145); TOTAL PROTEIN 5.5 GM/DL (6.4-8.2)
[2018-11-16] MEDS: PANTOPRAZOLE 20 MG TABLET (PROTONIX) PO SCH (05:27)
[2018-11-16] MEDS: CLINDAMYCIN 600 MG/50 ML IVPB 50 ML IV SCH ×3 (05:27→21:11)
[2018-11-16] MEDS: IBUPROFEN TABLET 200 MG TAB PO PRN ×2 (05:30→17:34)
[2018-11-16] MEDS: NS IV 1000 ML 1,000 ML IV SCH ×3 (05:30→17:34)
[2018-11-16] MEDS: FERROUS SULF 325 MG (IRON) TAB PO SCH (07:56)
[2018-11-16] MEDS: PARoxetine 20 MG (PAXIL) TAB PO SCH (07:57)
[2018-11-16] MEDS: GABAPENTIN 300 MG (NEURONTIN) CAP PO SCH ×3 (07:57→19:42)
[2018-11-16] MEDS: prednisoLONE 1% OPTH (PRED FORTE) 5 ML BTL OD SCH ×2 (07:57→19:42)
[2018-11-16] MEDS: LORATADINE (CLARITIN) 10 MG TAB PO SCH (07:57)
[2018-11-16] MEDS ORDERED: OMEPRAZOLE 20 MG (PriLOSEC) CAP NON-FORMULARY PO SCH (09:00)
--- NOTE | 2018-11-16 09:04 | Progress Note ---
Subjective Subjective/Events-last exam patient setting at bedside. He is very talkative and communicating He does voice his left leg is still swollen. He is taking plenty of fluids. Focused Exam Lactate Level 11/14/18 12:00: Lactic Acid Level 1.13 Objective Exam Last Set of Vital Signs Vital Signs Date Time Temp Pulse Resp B/P (MAP) Pulse Ox O2 Delivery O2 Flow Rate FiO2 11/16/18 04:00 98.4 73 16 155/69 (97) 92 Room Air Capillary Refill : Less Than 3 Seconds I&O Intake and Output 11/16/18 00:00 Intake Total 2480 ml Balance 2480 ml Intake Oral 1180 ml IV Total 1300 ml # Voids 9 # Bowel Movements 2 General: No Acute Distress Neck: Supple Lungs: Clear to Auscultation Heart: Regular Rate Abdomen: Soft Extremities: Other (swelling noted to the left lower extremity with mild erythema diffuse) Psych/Mental Status: Mental Status NL Results/Procedures Lab Laboratory Tests 11/16/18 04:31: White Blood Count 6.4, Red Blood Count 3.81L, Hemoglobin 10.7L, Hematocrit 33L, Mean Corpuscular Volume 87, Mean Corpuscular Hemoglobin 28, Mean Corpuscular Hemoglobin Concent 32, Red Cell Distribution Width 14.6H, Platelet Count 157, Mean Platelet Volume 10.9H, Sodium Level 138, Potassium Level 3.7, Chloride Level 106, Carbon Dioxide Level 24, Anion Gap 8, Blood Urea Nitrogen 11, Creatinine 0.79, Estimat Glomerular Filtration Rate > 60, BUN/Creatinine Ratio 14, Glucose Level 93, Calcium Level 8.4L, Corrected Calcium 9.2, Magnesium Level 1.4L, Total Bilirubin 0.2, Aspartate Amino Transf (AST/SGOT) 27, Alanine Aminotransferase (ALT/SGPT) 20, Alkaline Phosphatase 92, Total Protein 5.5L, Albumin 3.0L Microbiology 11/14/18 Blood Culture - Preliminary, Resulted No growth 11/14/18 Urine Culture - Final, Complete NO GROWTH Radiology 11/15/18 CXR: mild venous congestion with bibasilar atelectasis or pneumonitis Assessment/Plan Assessment/Plan (1) Confusion Status: Acute Assessment & Plan: Improved, suspect secondary to UTI and/or cellulitis (2) Left leg cellulitis Status: Acute Assessment & Plan: Clindamycin 11/16 -day number 2 of clindamycin 600 mg every 8 hours (3) Essential (primary) hypertension Status: Chronic Assessment & Plan: BP borderline currently, hold home meds. 11/16 -blood pressure this morning is noted to be normotensive (4) Nausea & vomiting Status: Acute Assessment & Plan: Suspect secondary to infection. Supportive care. (5) Hypokalemia Status: Acute Assessment & Plan: Replace, already on KCl at home, possible side effect of his chemotherapy (6) Chronic pain Status: Chronic Assessment & Plan: Resume home medications (7) Lung cancer Status: Chronic Assessment & Plan: Holding oral chemo currently, trying to get records from Oncology. Qualifiers: (8) DVT prophylaxis Status: Acute Assessment & Plan: Enoxaparin Clinical Quality Measures DVT/VTE Risk/Contraindication: Risk Factor Score Per Nursin RFS Level Per Nursing on Admit: 4+=Very High TIRSO MÁRQUEZ MD Nov 16, 2018 09:04
[2018-11-16] MEDS: ENOXAPARIN 40 MG/0.4 ML (LOVENOX) SYR SC SCH (13:33)
[2018-11-16] MEDS: TAMSULOSIN 0.4 MG (FLOMAX) CAP PO SCH (17:34)
[2018-11-17] MEDS: ARTIFICAL TEARS 0.4 ML UNIT DOSE (REFRESH PLUS) OD SCH ×12 (02:00→23:35)
[2018-11-17] MEDS: PANTOPRAZOLE 20 MG TABLET (PROTONIX) PO SCH (05:58)
[2018-11-17] MEDS: CLINDAMYCIN 600 MG/50 ML IVPB 50 ML IV SCH ×3 (05:58→20:58)
[2018-11-17] MEDS: NS IV 1000 ML 1,000 ML IV SCH ×2 (06:01→19:22)
[2018-11-17] MEDS: FERROUS SULF 325 MG (IRON) TAB PO SCH (07:53)
[2018-11-17] MEDS: PARoxetine 20 MG (PAXIL) TAB PO SCH (07:53)
[2018-11-17] MEDS: prednisoLONE 1% OPTH (PRED FORTE) 5 ML BTL OD SCH ×2 (07:54→20:52)
[2018-11-17] MEDS: GABAPENTIN 300 MG (NEURONTIN) CAP PO SCH ×3 (07:54→20:52)
[2018-11-17] MEDS: LORATADINE (CLARITIN) 10 MG TAB PO SCH (07:54)
[2018-11-17] MEDS: IBUPROFEN TABLET 200 MG TAB PO PRN ×2 (07:59→18:50)
[2018-11-17 08:00] VITALS: BP 118/59
--- NOTE | 2018-11-17 08:19 | Progress Note ---
Subjective Subjective/Events-last exam Patient reports he doesn't feel as well this morning as he did yesterday. He doesn't know exactly how to describe it just doesn't feel as though he has much energy. His left lower extremity is not hurting him. He did ask today if he was going home. He has been afebrile. He is tolerating regular diet. Focused Exam Lactate Level 11/14/18 12:00: Lactic Acid Level 1.13 Objective Exam Last Set of Vital Signs Vital Signs Date Time Temp Pulse Resp B/P (MAP) Pulse Ox O2 Delivery O2 Flow Rate FiO2 11/16/18 23:47 97.8 63 20 137/65 (89) 93 Room Air Capillary Refill : Less Than 3 Seconds I&O Intake and Output 11/17/18 00:00 Intake Total 1810 ml Balance 1810 ml Intake Oral 1710 ml IV Total 100 ml # Voids 10 General: No Acute Distress Neck: Supple Lungs: Clear to Auscultation Heart: Regular Rate Abdomen: Soft Extremities: Other (The left lower extremity does appear to be mildly swollen and the erythema is mild. Erythema distal half of leg.) Results/Procedures Lab Microbiology 11/14/18 Blood Culture - Preliminary, Resulted No growth 11/14/18 Urine Culture - Final, Complete NO GROWTH Radiology 11/15/18 CXR: mild venous congestion with bibasilar atelectasis or pneumonitis Assessment/Plan Assessment/Plan (1) Confusion Status: Acute Assessment & Plan: Improved, suspect secondary to UTI and/or cellulitis 11/17 -Completely resolved (2) Left leg cellulitis Status: Acute Assessment & Plan: Clindamycin 11/16 -day number 2 of clindamycin 600 mg every 8 hours 11/17 -Day number 3 of clindamycin 600 mg every 8 hours. -Upon dismissal to home he will have this switched to oral medications. -Plan on rechecking CBC and CMP today since he subjectively reports he doesn't feel well (3) Essential (primary) hypertension Status: Chronic Assessment & Plan: BP borderline currently, hold home meds. 11/16 -blood pressure this morning is noted to be normotensive (4) Nausea & vomiting Status: Acute Assessment & Plan: Suspect secondary to infection. Supportive care. 11/17 -Resolved (5) Hypokalemia Status: Acute Assessment & Plan: Replace, already on KCl at home, possible side effect of his chemotherapy (6) Chronic pain Status: Chronic Assessment & Plan: Resume home medications (7) Lung cancer Status: Chronic Assessment & Plan: Holding oral chemo currently, trying to get records from Oncology. Qualifiers: (8) DVT prophylaxis Status: Acute Assessment & Plan: Enoxaparin Clinical Quality Measures DVT/VTE Risk/Contraindication: Risk Factor Score Per Nursin RFS Level Per Nursing on Admit: 4+=Very High TIRSO MÁRQUEZ MD Nov 17, 2018 08:19
[2018-11-17 08:36] LABS: BASOPHILS % (AUTO) 0 % (0-10); EOSINOPHILS # (AUTO) 0.3 10^3/uL (0.0-0.3); EOSINOPHILS % (AUTO) 5 % (0-10); HEMATOCRIT 34 % (40-54); HEMOGLOBIN 11.1 G/DL (13.3-17.7); LYMPHOCYTES # (AUTO) 1.1 X 10^3 (1.0-4.0); LYMPHOCYTES % (AUTO) 17 % (12-44); MEAN CORPUSCULAR HEMOGLOBIN 28 PG (25-34); MEAN CORPUSCULAR HGB CONC 33 G/DL (32-36); MEAN CORPUSCULAR VOLUME 86 FL (80-99); MEAN PLATELET VOLUME 10.5 FL (7.4-10.4); MONOCYTES # (AUTO) 0.5 X 10^3 (0.0-1.0); MONOCYTES % (AUTO) 7 % (0-12); NEUTROPHILS # (AUTO) 4.5 X 10^3 (1.8-7.8); NEUTROPHILS % (AUTO) 71 % (42-75); PLATELET COUNT 208 10^3/uL (130-400); RED CELL DISTRIBUTION WIDTH 14.6 % (10.0-14.5); WHITE BLOOD COUNT 6.4 10^3/uL (4.3-11.0)
[2018-11-17 08:57] LABS: ALANINE AMINOTRANSFERASE 18 U/L (0-55); ALKALINE PHOSPHATASE 89 U/L (40-136); BILIRUBIN,TOTAL 0.3 MG/DL (0.1-1.0); BUN/CREATININE RATIO 9; CALCIUM 8.5 MG/DL (8.5-10.1); CARBON DIOXIDE 23 MMOL/L (21-32); CHLORIDE 105 MMOL/L (98-107); CREATININE SERUM 0.77 MG/DL (0.60-1.30); GFR ESTIMATED > 60; GLUCOSE 122 MG/DL (70-105); POTASSIUM 3.1 MMOL/L (3.6-5.0); SODIUM 140 MMOL/L (135-145); TOTAL PROTEIN 5.8 GM/DL (6.4-8.2)
[2018-11-17] MEDS ORDERED: FENTANYL PATCH REMOVAL TP SCH (08:59)
[2018-11-17] MEDS ORDERED: fentaNYL PATCH 100 MCG (DURAGESIC) TD SCH (09:00)
[2018-11-17] MEDS: ENOXAPARIN 40 MG/0.4 ML (LOVENOX) SYR SC SCH (13:46)
[2018-11-17 16:00] VITALS: BP 140/65
[2018-11-17 17:09] VITALS: BP 140/65
[2018-11-17] MEDS: TAMSULOSIN 0.4 MG (FLOMAX) CAP PO SCH (17:38)
[2018-11-17 23:50] VITALS: BP 148/65
[2018-11-18] MEDS: ARTIFICAL TEARS 0.4 ML UNIT DOSE (REFRESH PLUS) OD SCH ×9 (02:00→17:41)
[2018-11-18] MEDS: PANTOPRAZOLE 20 MG TABLET (PROTONIX) PO SCH (05:25)
[2018-11-18] MEDS: CLINDAMYCIN 600 MG/50 ML IVPB 50 ML IV SCH ×2 (05:25→13:36)
[2018-11-18 07:38] VITALS: BP 141/73
[2018-11-18] MEDS: FERROUS SULF 325 MG (IRON) TAB PO SCH (07:39)
[2018-11-18] MEDS: GABAPENTIN 300 MG (NEURONTIN) CAP PO SCH ×2 (07:39→12:51)
[2018-11-18] MEDS: LORATADINE (CLARITIN) 10 MG TAB PO SCH (07:40)
[2018-11-18] MEDS: PARoxetine 20 MG (PAXIL) TAB PO SCH (07:40)
[2018-11-18] MEDS: prednisoLONE 1% OPTH (PRED FORTE) 5 ML BTL OD SCH (07:40)
[2018-11-18] MEDS: NS IV 1000 ML 1,000 ML IV SCH (07:42)
[2018-11-18] MEDS ORDERED: KCL 10 MEQ TAB (MICRO K) PO NR (09:30)
--- NOTE | 2018-11-18 10:18 | NUR ---
Pt states he wants to be discharged home. Currently not interested in pursuing skilled placement at [facility]. He states he can arrange transportation home and will not be homebound. He states that his family has left the continued care placement up to him. He states he feels much better today and acknowledges that didn't feel good yesterday. He reports that he has an appt with his oncologist on Sunday with Dr. Main in [place] and would like to keep that appt.
[2018-11-18] MEDS ORDERED: CLIN300C11 PO (10:26)
--- NOTE | 2018-11-18 10:28 | Discharge Summary ---
Diagnosis/Chief Complaint Date of Admission Nov 14, 2018 at 13:59 Date of Discharge Discharge Date: Nov 18, 2018 Discharge Diagnosis (1) Left leg cellulitis Status: Acute (2) Hypokalemia Status: Acute (3) Essential (primary) hypertension Status: Chronic (4) Chronic pain Status: Chronic (5) Lung cancer Status: Chronic (6) Confusion Status: Resolved (7) Debility Status: Chronic (8) Nausea & vomiting Status: Resolved (9) H/O prostatectomy Status: Chronic (10) TBI (traumatic brain injury) Status: Chronic Discharge Summary Discharge Physical Exam Allergies: Coded Allergies: baclofen (Verified Allergy, Unknown, 06/14/18) metoclopramide (Verified Allergy, Unknown, 06/14/18) Vitals & I&Os Vital Signs Date Time Temp Pulse Resp B/P (MAP) Pulse Ox O2 Delivery O2 Flow Rate FiO2 11/18/18 15:54 97.4 65 20 149/67 (94) 96 Room Air General Appearance: No Apparent Distress, WD/WN Skin: Normal Color, Warm/Dry Neurologic/Psychiatric: Alert, Oriented x3, No Motor/Sensory Deficits, Normal Mood/Affect Hospital Course Was the Problem List Reviewed?: Yes Hospital course: Pt had an uneventful hospital course he was admitted for left lower extremity cellulitis with altered mental status, and nausea and vomiting. He was placed on empiric antibiotic of Clindamycin IV and monitored blood work and vital sings closely. Potassium of 3.1 at time f DC requiring 10 mil equivalents PO x1 and obtained a close follow up with Dr. Paredes and sent an additional day of Clindamycin to [facility] in [facility] because left leg was much improved. He has his own walker at home, he has plenty of friends who will check in on him. He did not require any type of rehab or PT at discharged, and he will be having a close follow up with Dr. Paredes. Labs (last 24 hrs) Microbiology 11/14/18 Blood Culture - Preliminary, Resulted No growth 11/14/18 Urine Culture - Final, Complete NO GROWTH Patient resulted labs reviewed. Discussion & Recommendations Discharge Planning: <30 minutes discharge planning Discharge Home Medications: Active Scripts Active Clindamycin HCl 300 Mg Capsule 300 Mg PO TID Reported Refresh Tears (Carboxymethylcellulose Sodium) 15 Ml Drops 1 Drop OD Q2H Systane Nighttime Eye Oint (Mineral Oil/Petrolatum,White) 3.5 Gm Oint...g. OD HS Prednisolone Acet 1% Eye Drop (Prednisolone Acetate/Pf) 5 Ml Drops.susp 1 Drop OD BID Fentanyl Patch 100 MCG (Fentanyl) 1 Each Patch.td72 100 Mcg TD Q72H Nystatin 15 Gm Cream..g. TOP BID PRN Triamcinolone Acetonide 0.025% Ointment (Triamcinolone Acetonide) 80 Gm Oint...g. TOP BID PRN Omeprazole 20 Mg Capsule.dr 20 Mg PO DAILY Flomax (Tamsulosin HCl) 0.4 Mg Cap 0.4 Mg PO 1800 LAST FILLED #90 07-29-18 Oxycodone HCl 5 Mg Tablet 5 Mg PO Q6H PRN Ibuprofen 200 Mg Tablet 400 Mg PO Q6H PRN Gilotrif (Afatinib Dimaleate) 30 Mg Tablet 30 Mg PO DAILY Iprat-Albut 0.5-3(2.5) mg/3 ml (Ipratropium/Albuterol Sulfate) 3 Ml Ampul.neb 3 Ml IH Q12H PRN Ondansetron Odt (Ondansetron) 4 Mg Tab.rapdis 4 Mg PO Q8H PRN Ventolin Hfa (Albuterol Sulfate) 1 Puff Puff 2 Puff INH Q4H PRN 1 PUFF = 90 MCG Multi-Vitamin Daily (Multivitamin) 1 Each Tablet 1 Tab PO DAILY Feosol (Ferrous Sulfate) 325 Mg Tablet 325 Mg PO DAILY Ascorbic Acid 500 Mg Tablet 500 Mg PO DAILY Loratadine 10 Mg Tablet 10 Mg PO DAILY Paroxetine HCl 20 Mg Tablet 20 Mg PO DAILY Anoro Ellipta 62.5-25 Mcg INH (Umeclidinium Brm/Vilanterol Tr) 1 Each Blst.w.dev 1 Puff IH DAILY Amlodipine Besylate 10 Mg Tablet 10 Mg PO DAILY Gabapentin 300 Mg Capsule 600 Mg PO TID TAKES 2 (300MG) CAPSULES Potassium Chloride 10 Meq Tab.er.prt 20 Meq PO DAILY LAST FILLED #180 06-03-18 TAKES 2 (10MEQ) TABLETS Instructions to patient/family Please see electronic discharge instructions given to patient. Clinical Quality Measures DVT/VTE Risk/Contraindication: Risk Factor Score Per Nursin RFS Level Per Nursing on Admit: 4+=Very High Problem Qualifiers (1) Chronic pain: Chronic pain type: chronic pain syndrome Qualified Codes: G89.4 - Chronic pain syndrome (2) Lung cancer: Laterality: right Lung location: unspecified part of lung Qualified Codes: C34.91 - Malignant neoplasm of unspecified part of right bronchus or lung (3) Nausea & vomiting: Vomiting type: unspecified Vomiting Intractability: unspecified Qualified Codes: R11.2 - Nausea with vomiting, unspecified (4) TBI (traumatic brain injury): Encounter type: BEBETO Salguero DO Nov 18, 2018 10:27
--- NOTE | 2018-11-18 11:50 | NUR ---
Important Message from Medicare presented, reviewed, signed and charted. Patient voiced no intention to appeal and deny any needs or further questions at this time.
[2018-11-18 12:00] VITALS: BP 141/73
[2018-11-18] MEDS: IBUPROFEN TABLET 200 MG TAB PO PRN (13:35)
[2018-11-18] MEDS: ENOXAPARIN 40 MG/0.4 ML (LOVENOX) SYR SC SCH (14:08)
[2018-11-18 15:54] VITALS: BP 149/67
[2018-11-18] MEDS: TAMSULOSIN 0.4 MG (FLOMAX) CAP PO SCH (17:41)
--- NOTE | 2018-11-18 18:11 | NUR ---
Pt has been truing all day to locate his friend who was to transport him home upon discharge. He has been unsuccessful but states he has other people he could call if she isn't able. Disucssed taxi cab option but he doesn't want to do that due to the distance.
== END 2018-11-18 19:45 | disposition home or self-care (01) | DRG 603 ==
LOC: EDUNIT# 11:47 → ER FS 11:53 → 4TH 13:59
PROVIDERS: ADMIT Family Medicine; ATTEND Family Medicine
DX: L03.116 Cellulitis of left lower limb (principal); C34.91 Malignant neoplasm of unspecified part of right bronchus or lung; E87.6 Hypokalemia; R41.0 Disorientation, unspecified; R11.2 Nausea with vomiting, unspecified; J44.9 Chronic obstructive pulmonary disease, unspecified; I10 Essential (primary) hypertension; R32 Unspecified urinary incontinence; M54.9 Dorsalgia, unspecified; M79.671 Pain in right foot; M19.91 Primary osteoarthritis, unspecified site; G62.9 Polyneuropathy, unspecified; H91.91 Unspecified hearing loss, right ear; H57.89 Other specified disorders of eye and adnexa; G89.29 Other chronic pain; Z87.891 Personal history of nicotine dependence; Z87.440 Personal history of urinary (tract) infections; Z87.01 Personal history of pneumonia (recurrent); Z97.4 Presence of external hearing-aid; Z92.21 Personal history of antineoplastic chemotherapy; Z87.820 Personal history of traumatic brain injury
CPT/HCPCS: 36415; 71045; 80053; 81000; 82274; 83605; 83735; 84484; 85007; 85025; 85027; 85610; 85730; 87040; 87088; 94640; 94760; 96361; 96365; 96375

== ENCOUNTER 2018-11-22 07:58 | Inpatient (IN) | payer MEDICARE, OTHER | END 2018-11-25 16:50 | LOC: ER FS 07:58 → 4TH 11:05 | DX: J18.9 Pneumonia, unspecified organism (principal); C34.2 Malignant neoplasm of middle lobe, bronchus or lung; J44.9 Chronic obstructive pulmonary disease, unspecified; I10 Essential (primary) hypertension; J30.2 Other seasonal allergic rhinitis; N42.9 Disorder of prostate, unspecified; R32 Unspecified urinary incontinence; M19.91 Primary osteoarthritis, unspecified site; M54.9 Dorsalgia, unspecified; G57.91 Unspecified mononeuropathy of right lower limb; H91.91 Unspecified hearing loss, right ear; H57.89 Other specified disorders of eye and adnexa; Z79.899 Other long term (current) drug therapy; Z87.891 Personal history of nicotine dependence; Z87.820 Personal history of traumatic brain injury; Z97.4 Presence of external hearing-aid; Z96.652 Presence of left artificial knee joint; Z91.19 Patient's noncompliance with other medical treatment and regimen ==

== ENCOUNTER 2018-12-20 11:13 | Emergency (ER) | payer MEDICARE, OTHER ==
[~2018-12-20] VITALS: Ht 180.3 cm; Wt 74.8 kg
[~2018-12-20 11:13] MED LIST changes: +CARB15DR OD; +CEFD300C3 PO; +CLIN300C11 PO; +MINE3.5O4 OD; -OMEP20CA12 PO; +OMEP20CA13 PO; +PRED5DRO24 OD
--- NOTE | 2018-12-20 12:06 | Diagnostic Imaging Report ---
EXAM: Left wrist at 11:26 INDICATION:: Fell, wrist pain. TECHNIQUE: 3 views were obtained. FINDINGS: There is no fracture, dislocation or acute bony abnormality of the wrist evident. However there is a slightly impacted displaced fracture of the base of the proximal phalanx of the thumb. A left hand series is pending for further evaluation. 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 Specifically, there is marked narrowing of the radiocarpal joint and there is sclerosis of the lunate and navicular bones. The capitate bone is also now interposed between the scaphoid and lunate bones consistent with a SLAC wrist (scapholunate advanced collapse). There is also severe degenerative disease of the triscaphe joint and there is chondrocalcinosis of the triangular fibrocartilage. The soft tissues are unremarkable. IMPRESSION: 1. There is a slightly impacted displaced fracture of the base of the proximal phalanx of the thumb. A left hand series is pending for further study. 2. 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 Dictated by: Dictated on workstation # [id number]
--- NOTE | 2018-12-20 12:14 | Diagnostic Imaging Report ---
INDICATION: Fall, pain, swelling COMPARISON: Imaging of the left wrist from the same day TECHNIQUE: Two radiographs of the left hand dated 12/20/2018. FINDINGS: Recent-appearing fracturing involving the base of the first digit proximal phalanx is noted. There is likely intra-articular extension to the first digit MCP joint. Fracture is not significantly displaced. No additional acute fracture. No dislocation. Severe degenerative changes are noted throughout the carpus with severe joint space narrowing and prominent osteophyte formation. Decreased volume of the scaphoid/lunate is also noted. Severe degenerative changes of the first CMC joint. No suspicious radiopaque foreign body. IMPRESSION: 1. Acute essentially nondisplaced fracturing involving the base of the first digit proximal phalanx with intra-articular extension to the first MCP joint. 2. Advanced degenerative changes throughout the wrist and carpus. Report given to Dr. Wells at 12:13 p.m. 12/20/2018/cam Dictated by: Dictated on workstation # [id number]
--- NOTE | 2018-12-20 12:25 | NUR ---
Dr Wells had patient call son from out of state to inform him of his ER visit and Dx. Pt has had frequency of ER visits and wants family to be clued in on pt's progressing health issues. Was informed from a prior ER visit requiring admission, that pt went to [facility] for a short while and now out.
--- NOTE | 2018-12-20 12:31 | ED Upper Extremity ---
General Chief Complaint: Upper Extremity Stated Complaint: LT HAND INJ Nursing Triage Note: Pt brought to ED per a friend driving. Friend reports patient seen eating a breakfast with a swollen left hand. Pt was not going to come to ER until encouraged. Pt tripped using his walker getting caught in fan cord on yesterday. Left hand is swollen with deformity appearance. Rug burn noted to nose. Nursing Sepsis Screen: No Definite Risk Source: patient Exam Limitations: other (friendly, but poor historian) History of Present Illness Date Seen by Provider: Dec 20, 2018 Time Seen by Provider: 11:30 Initial Comments Patient is a right-handed 78-year-old male who presents with left hand injury. Patient tripped yesterday over a fan cord landing on his left wrist. Patient with tenderness swelling or left thumb. The patient also noted to have a faint abrasion to his nose. Patient denies headache, loss of consciousness, neck pain or dizziness. Patient has been walking with a walker without difficulty today and was at breakfast when a friend noticed the patient's injury and encouraged him to get it checked out. No other acute symptoms or complaints. Onset: yesterday Pain/Injury Location: left hand, left thumb Method of Injury: fell Allergies and Home Medications Allergies Coded Allergies: baclofen (Verified Allergy, Unknown, 11/24/18) metoclopramide (Verified Allergy, Unknown, 11/24/18) Home Medications Afatinib Dimaleate 30 Mg Tablet, 30 MG PO DAILY Please call Oncology for when to restart meds Prescribed by: KENNEDY CLINE on 11/25/18 1235 Albuterol Sulfate 1 Puff Puff, 1 PUFF INH Q4H PRN for SHORTNESS OF BREATH, (Reported) 1 PUFF = 90 MCG Amlodipine Besylate 10 Mg Tablet, 10 MG PO DAILY, (Reported) Ascorbic Acid 500 Mg Tablet, 500 MG PO DAILY, (Reported) Carboxymethylcellulose Sodium 15 Ml Drops, 1 DROP OD Q2H, (Reported) Fentanyl 1 Each Patch.td72, 100 MCG TD Q72H, (Reported) Gabapentin 300 Mg Capsule, 600 MG PO TID, (Reported) TAKES 2 (300MG) CAPSULES Ipratropium/Albuterol Sulfate 3 Ml Ampul.neb, 3 ML IH Q12H PRN for SHORTNESS OF BREATH, (Reported) Loratadine 10 Mg Tablet, 10 MG PO DAILY, (Reported) Mineral Oil/Petrolatum,White 3.5 Gm Oint...g., OD HS, (Reported) Multivitamin 1 Each Tablet, 1 TAB PO DAILY, (Reported) Nystatin 15 Gm Cream..g., TOP BID PRN for RASH, (Reported) Omeprazole 20 Mg Capsule.dr, 20 MG PO DAILY, (Reported) Ondansetron 4 Mg Tab.rapdis, 4 MG PO Q8H PRN for NAUSEA/VOMITING-1ST LINE, (Reported) Oxycodone HCl 5 Mg Tablet, 5 MG PO Q6H PRN for PAIN-SEVERE, (Reported) Paroxetine HCl 20 Mg Tablet, 20 MG PO DAILY, (Reported) Potassium Chloride 10 Meq Tab.er.prt, 20 MEQ PO DAILY, (Reported) TAKES 2 (10MEQ) TABLETS Prednisolone Acetate/Pf 5 Ml Drops.susp, 1 DROP OD BID, (Reported) Tamsulosin HCl 0.4 Mg Cap, 0.4 MG PO 1800, (Reported) Triamcinolone Acetonide 80 Gm Oint...g., TOP BID PRN for SKIN, (Reported) Patient Home Medication List Home Medication List Reviewed: Yes Review of Systems Constitutional: no symptoms reported EENTM: no symptoms reported Respiratory: no symptoms reported Cardiovascular: no symptoms reported Genitourinary: no symptoms reported Past Wbtwcac-Gfrknz-Zyzpes Hx Patient Social History Alcohol Use: Rarely Uses Number of Drinks Today: GG Alcohol Beverage of Choice: Beer, Whiskey Recreational Drug Use: No Smoking Status: Former Smoker Type Used: Cigarettes Former Smoker, Quit: Apr 23, 1969 2nd Hand Smoke Exposure: No Recent Foreign Travel: No Contact w/Someone Who Travel: No Recent Infectious Disease Expo: No Recent Hopitalizations: No Physical Abuse: No Sexual Abuse: No Mistreated: No Fear: No Immunizations Up To Date Tetanus Booster (TDap): Unknown Date of Pneumonia Vaccine: Feb 04, 2016 Date of Influenza Vaccine: Jan 09, 2018 Seasonal Allergies Seasonal Allergies: Yes Past Medical History Surgeries: Yes (Past hx of Suprapubic catheter, L TKR, Neuro stimulator placed and removed) Eye Surgery, Gallbladder, Joint Replacement, Orthopedic Respiratory: Yes (has home 02, has only used once in 2 years) Pneumonia, COPD Currently Using CPAP: No Currently Using BIPAP: No Cardiac: Yes Hypertension Neurological: Yes Concussion, Neuropathy, Traumatic Brain Injury Genitourinary: Yes (urinary incontinence, past hx of Suprapubic catheter, prostate problems) Prostate Problems, UTI-Chronic Gastrointestinal: Yes (on Iron replacement, Hx of abnormal LFT's) Abdominal Hernia, Gastrointestinal Bleed Musculoskeletal: Yes (chronic pain from trauma, run over by a tractor) Arthritis, Back Injury, Chronic Back Pain Endocrine: No HEENT: Yes (dry eyes, doesn't make tears) Loss of Vision: Right Hearing Impairment: Hard of Hearing, Hearing Aide Right, 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 Did You Recieve Any Treatments: Yes What Type of Treatment Did You: Chemotherapy Psychosocial: No Integumentary: Yes (thin/frail skin, LLE redness and warmth) Recent Skin Changes Blood Disorders: No Adverse Reaction/Blood Tranf: No Family Medical History Arthritis Colon cancer Coronary thrombosis Hypertension Myocardial infarction Respiratory disorder Heart Disease, Cancer, Hypertension Physical Exam Vital Signs Vital Signs - First Documented 12/20/18 11:15 Temp 99.0 Pulse 77 Resp 18 B/P (MAP) 149/69 (95) Pulse Ox 96 O2 Delivery Room Air Capillary Refill : Less Than 3 Seconds Height, Weight, BMI Height: 5'11.00" Weight: 165lbs. 8.0oz. 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 Patient placed in splint. Patient son ifrom out of town and is going to stay with the patient this evening. Patient's encouraged to follow up with local hand surgeon. Return precautions reviewed. Impression Primary Impression: Fracture of thumb, left, closed Disposition: HOME, SELF-CARE Condition: Stable Departure-Patient Inst. Referrals: SANDY HIGH MAXWELL MD (PCP/Family) Primary Care Physician Patient Instructions: Common Finger Injuries Add. Discharge Instructions: Please wear thumb splint and follow up with local hand surgeon and PCP next week.. All discharge instructions reviewed with patient and/or family. Voiced unde rstanding. FARNAZ MCKEON DO Dec 20, 2018 12:31
[2018-12-20 12:40] VITALS: BP 149/69
== END 2018-12-20 12:40 | disposition home or self-care (01) ==
LOC: EDUNIT# 11:13 → ER FS 11:14
DX: S62.515A Nondisplaced fracture of proximal phalanx of left thumb, initial encounter for closed fracture (principal); S00.31XA Abrasion of nose, initial encounter; I10 Essential (primary) hypertension; J44.9 Chronic obstructive pulmonary disease, unspecified; Z87.440 Personal history of urinary (tract) infections; Z99.81 Dependence on supplemental oxygen; Z96.652 Presence of left artificial knee joint; Z88.8 Allergy status to other drugs, medicaments and biological substances; Z87.891 Personal history of nicotine dependence; Z85.118 Personal history of other malignant neoplasm of bronchus and lung; Z80.0 Family history of malignant neoplasm of digestive organs; Z82.49 Family history of ischemic heart disease and other diseases of the circulatory system; W01.118A Fall on same level from slipping, tripping and stumbling with subsequent striking against other sharp object, initial encounter
CPT/HCPCS: 73110; 73120

== ENCOUNTER 2019-01-06 14:19 | Emergency (ER) | payer MEDICARE, OTHER ==
[~2019-01-06] VITALS: Ht 175.3 cm; Wt 75.5 kg
[2019-01-06 15:09] LABS: HEMATOCRIT 36 % (40-54); HEMOGLOBIN 11.6 G/DL (13.3-17.7); LYMPHOCYTES % (AUTO) 20 % (12-44); MEAN CORPUSCULAR HEMOGLOBIN 28 PG (25-34); MEAN CORPUSCULAR HGB CONC 32 G/DL (32-36); MEAN CORPUSCULAR VOLUME 88 FL (80-99); MEAN PLATELET VOLUME 10.3 FL (7.4-10.4); MONOCYTES % (AUTO) 5 % (0-12); NEUTROPHILS % (AUTO) 69 % (42-75); PLATELET COUNT 281 10^3/uL (130-400); RED CELL DISTRIBUTION WIDTH 13.4 % (10.0-14.5); WHITE BLOOD COUNT 9.5 10^3/uL (4.3-11.0)
[2019-01-06 15:10] LABS: BASOPHILS % (AUTO) 0 % (0-10); EOSINOPHILS # (AUTO) 0.5 10^3/uL (0.0-0.3); EOSINOPHILS % (AUTO) 5 % (0-10); LYMPHOCYTES # (AUTO) 1.9 X 10^3 (1.0-4.0); MONOCYTES # (AUTO) 0.5 X 10^3 (0.0-1.0); NEUTROPHILS # (AUTO) 6.6 X 10^3 (1.8-7.8)
[2019-01-06 15:22] LABS: PROTHROMBIN TIME PATIENT 13.2 SEC (12.2-14.7)
[2019-01-06 15:27] LABS: ALANINE AMINOTRANSFERASE 14 U/L (0-55); ALKALINE PHOSPHATASE 124 U/L (40-136); BILIRUBIN,TOTAL 0.2 MG/DL (0.1-1.0); BUN/CREATININE RATIO 16; CALCIUM 9.3 MG/DL (8.5-10.1); CARBON DIOXIDE 25 MMOL/L (21-32); CHLORIDE 99 MMOL/L (98-107); CREATININE SERUM 1.16 MG/DL (0.60-1.30); GFR ESTIMATED > 60; GLUCOSE 114 MG/DL (70-105); POTASSIUM 4.2 MMOL/L (3.6-5.0); SODIUM 138 MMOL/L (135-145); TOTAL PROTEIN 7.6 GM/DL (6.4-8.2)
--- NOTE | 2019-01-06 15:34 | ED General ---
General Chief Complaint: Rect Problems Stated Complaint: RECTAL BLEEDING History of Present Illness Date Seen by Provider: Jan 06, 2019 Time Seen by Provider: 15:28 Initial Comments Patient presenting to the emergency department for evaluation of rectal bleeding that has been present since yesterday. Patient says it is a large amount of bright red blood that comes with his stool and happens in between bowel movements as well. He does not mention any significant pain dizziness abdominal pain fevers chills nausea vomiting. He denies taking any blood thinners and he does not think that he is or had symptoms similar to this in the past. He is able to ambulate to the room with his cane with minimal difficulty. Allergies and Home Medications Allergies Coded Allergies: baclofen (Verified Allergy, Unknown, 11/24/18) metoclopramide (Verified Allergy, Unknown, 11/24/18) Home Medications Afatinib Dimaleate 30 Mg Tablet, 30 MG PO DAILY Please call Oncology for when to restart meds Prescribed by: KENNEDY CLINE on 11/25/18 1235 Albuterol Sulfate 1 Puff Puff, 1 PUFF INH Q4H PRN for SHORTNESS OF BREATH, (Reported) 1 PUFF = 90 MCG Amlodipine Besylate 10 Mg Tablet, 10 MG PO DAILY, (Reported) Ascorbic Acid 500 Mg Tablet, 500 MG PO DAILY, (Reported) Carboxymethylcellulose Sodium 15 Ml Drops, 1 DROP OD Q2H, (Reported) Fentanyl 1 Each Patch.td72, 100 MCG TD Q72H, (Reported) Gabapentin 300 Mg Capsule, 600 MG PO TID, (Reported) TAKES 2 (300MG) CAPSULES Ipratropium/Albuterol Sulfate 3 Ml Ampul.neb, 3 ML IH Q12H PRN for SHORTNESS OF BREATH, (Reported) Loratadine 10 Mg Tablet, 10 MG PO DAILY, (Reported) Mineral Oil/Petrolatum,White 3.5 Gm Oint...g., OD HS, (Reported) Multivitamin 1 Each Tablet, 1 TAB PO DAILY, (Reported) Nystatin 15 Gm Cream..g., TOP BID PRN for RASH, (Reported) Omeprazole 20 Mg Capsule.dr, 20 MG PO DAILY, (Reported) Ondansetron 4 Mg Tab.rapdis, 4 MG PO Q8H PRN for NAUSEA/VOMITING-1ST LINE, (Reported) Oxycodone HCl 5 Mg Tablet, 5 MG PO Q6H PRN for PAIN-SEVERE, (Reported) Paroxetine HCl 20 Mg Tablet, 20 MG PO DAILY, (Reported) Potassium Chloride 10 Meq Tab.er.prt, 20 MEQ PO DAILY, (Reported) TAKES 2 (10MEQ) TABLETS Prednisolone Acetate/Pf 5 Ml Drops.susp, 1 DROP OD BID, (Reported) Tamsulosin HCl 0.4 Mg Cap, 0.4 MG PO 1800, (Reported) Triamcinolone Acetonide 80 Gm Oint...g., TOP BID PRN for SKIN, (Reported) Patient Home Medication List Home Medication List Reviewed: Yes Review of Systems Review of Systems Constitutional: no symptoms reported EENTM: no symptoms reported Respiratory: no symptoms reported Cardiovascular: no symptoms reported Gastrointestinal: melena Genitourinary: no symptoms reported Musculoskeletal: no symptoms reported Skin: no symptoms reported Psychiatric/Neurological: No Symptoms Reported All Other Systems Reviewed Negative Unless Noted: Yes Past Rrffglq-Udseqk-Mfbfoc Hx Patient Social History Alcohol Beverage of Choice: Beer, Whiskey Type Used: Cigarettes Former Smoker, Quit: Apr 23, 1969 2nd Hand Smoke Exposure: No Recent Hopitalizations: No Immunizations Up To Date Tetanus Booster (TDap): Unknown Date of Pneumonia Vaccine: Feb 04, 2016 Date of Influenza Vaccine: Jan 09, 2018 Seasonal Allergies Seasonal Allergies: Yes Past Medical History Surgeries: Yes (Past hx of Suprapubic catheter, L TKR, Neuro stimulator placed and removed) Eye Surgery, Gallbladder, Joint Replacement, Orthopedic Respiratory: Yes (has home 02, has only used once in 2 years) Pneumonia, COPD Currently Using CPAP: No Currently Using BIPAP: No Cardiac: Yes Hypertension Neurological: Yes Concussion, Neuropathy, Traumatic Brain Injury Genitourinary: Yes (urinary incontinence, past hx of Suprapubic catheter, prostate problems) Prostate Problems, UTI-Chronic Gastrointestinal: Yes (on Iron replacement, Hx of abnormal LFT's) Abdominal Hernia, Gastrointestinal Bleed Musculoskeletal: Yes (chronic pain from trauma, run over by a tractor) Arthritis, Back Injury, Chronic Back Pain Endocrine: No HEENT: Yes (dry eyes, doesn't make tears) Loss of Vision: Right Hearing Impairment: Hard of Hearing, Hearing Aide Right, 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 8.0oz. [id number]; 23.5 BMI Method:Stated General Appearance: No Apparent Distress, Chronically ill HEENT: PERRL/EOMI Neck: Supple Respiratory: No Respiratory Distress Cardiovascular: Regular Rate, Rhythm Gastrointestinal: Soft Rectal: Heme Positive Stool; No Hemorrhoids, No Mass, No Tenderness; Other (ulcerations and irritated rectal mucosa with pinpoint bleeding lesions noted. No significant pain noted. There is brown stool present however it is Hemoccult positive. ) Back: Normal Inspection Extremity: Normal Capillary Refill, No Pedal Edema Neurologic/Psychiatric: Alert, Oriented x3 Skin: Warm/Dry Progress/Results/Core Measures Suspected Sepsis SIRS Temperature: Pulse: Respiratory Rate: Laboratory Tests 01/06/19 14:45: White Blood Count 9.5 Blood Pressure / Mean: Laboratory Tests 01/06/19 14:45: INR Comment 1.0, Platelet Count 281 Results/Orders Lab Results Laboratory Tests Test 01/06/19 14:45 Range/Units White Blood Count 9.5 4.3-11.0 10^3/uL Red Blood Count 4.10 L 4.35-5.85 10^6/uL Hemoglobin 11.6 L 13.3-17.7 G/DL Hematocrit 36 L 40-54 % Mean Corpuscular Volume 88 80-99 FL Mean Corpuscular Hemoglobin 28 25-34 PG Mean Corpuscular Hemoglobin Concent 32 32-36 G/DL Red Cell Distribution Width 13.4 10.0-14.5 % Platelet Count 281 130-400 10^3/uL Mean Platelet Volume 10.3 7.4-10.4 FL Neutrophils (%) (Auto) 69 42-75 % Lymphocytes (%) (Auto) 20 12-44 % Monocytes (%) (Auto) 5 0-12 % Eosinophils (%) (Auto) 5 0-10 % Basophils (%) (Auto) 0 0-10 % Neutrophils # (Auto) 6.6 1.8-7.8 X 10^3 Lymphocytes # (Auto) 1.9 1.0-4.0 X 10^3 Monocytes # (Auto) 0.5 0.0-1.0 X 10^3 Eosinophils # (Auto) 0.5 H 0.0-0.3 10^3/uL Basophils # (Auto) 0.0 0.0-0.1 10^3/uL Prothrombin Time 13.2 12.2-14.7 SEC INR Comment 1.0 0.8-1.4 Activated Partial Thromboplast Time 29 24-35 SEC My Orders Orders - GIOVANI CAMPBELL DO Cbc With Automated Diff (01/06/19 14:48) Comprehensive Metabolic Panel (01/06/19 14:48) Partial Thromboplastin Time (01/06/19 14:48) Protime With Inr (01/06/19 14:48) Vital Signs/I&O Capillary Refill : Progress Note : Progress Note I suspect his bleeding is from his rectal mucosa as it appears quite irritated. Patient is giving history that is a large amount of bleeding that he is having. Given his age and that he lives by himself and is in poor health will admit for further evaluation and treatment. Patient accepted by Dr. Sullivan at [facility] is full at this time. Patient transferred in stable condition. Departure Impression Primary Impression: Anemia Additional Impression: GI bleed Disposition: XFER SHT-TRM HOSP Condition: Stable Departure-Patient Inst. Referrals: SADIA SEGUNDO MD (PCP/Family) Primary Care Physician GIOVANI CAMPBELL DO Jan 06, 2019 15:34
[2019-01-06 16:44] VITALS: BP 120/59
== END 2019-01-06 16:44 | disposition short-term general hospital (02) ==
LOC: EDUNIT# 14:19 → ER FS 14:21
DX: K92.2 Gastrointestinal hemorrhage, unspecified (principal); D64.9 Anemia, unspecified; J44.9 Chronic obstructive pulmonary disease, unspecified; I10 Essential (primary) hypertension; Z87.01 Personal history of pneumonia (recurrent); Z88.8 Allergy status to other drugs, medicaments and biological substances; Z87.891 Personal history of nicotine dependence; Z96.652 Presence of left artificial knee joint; Z99.81 Dependence on supplemental oxygen; Z87.820 Personal history of traumatic brain injury; Z85.118 Personal history of other malignant neoplasm of bronchus and lung; Z80.0 Family history of malignant neoplasm of digestive organs; Z82.49 Family history of ischemic heart disease and other diseases of the circulatory system
CPT/HCPCS: 36415; 80053; 85025; 85610; 85730

== ENCOUNTER → 2019-01-06 | Outpatient (CLI) | payer MEDICARE, OTHER ==
[2019-01-06 12:15] LABS: BASOPHILS % (AUTO) 0 % (0-10); EOSINOPHILS # (AUTO) 0.5 10^3/uL (0.0-0.3); EOSINOPHILS % (AUTO) 5 % (0-10); HEMATOCRIT 37 % (40-54); HEMOGLOBIN 11.9 G/DL (13.3-17.7); LYMPHOCYTES # (AUTO) 1.6 X 10^3 (1.0-4.0); LYMPHOCYTES % (AUTO) 15 % (12-44); MEAN CORPUSCULAR HEMOGLOBIN 29 PG (25-34); MEAN CORPUSCULAR HGB CONC 32 G/DL (32-36); MEAN CORPUSCULAR VOLUME 89 FL (80-99); MEAN PLATELET VOLUME 9.9 FL (7.4-10.4); MONOCYTES # (AUTO) 0.6 X 10^3 (0.0-1.0); MONOCYTES % (AUTO) 6 % (0-12); NEUTROPHILS # (AUTO) 7.7 X 10^3 (1.8-7.8); NEUTROPHILS % (AUTO) 74 % (42-75); PLATELET COUNT 289 10^3/uL (130-400); RED CELL DISTRIBUTION WIDTH 13.3 % (10.0-14.5); WHITE BLOOD COUNT 10.5 10^3/uL (4.3-11.0)
[2019-01-06 12:16] LABS: BAND NEUTROPHILS 13 %; BASOPHILS % (MANUAL) 0 %; EOSINOPHILS % (MANUAL) 5 %; LYMPHOCYTES % (MANUAL) 18 %; MONOCYTES % (MANUAL) 4 %; NEUTROPHILS % (MANUAL) 59 %; RBC MORPH NORMAL
[2019-01-06 14:43] LABS: ALKALINE PHOSPHATASE 123 U/L (40-136); BILIRUBIN,TOTAL 0.3 MG/DL (0.1-1.0); BUN/CREATININE RATIO 16; CALCIUM 9.2 MG/DL (8.5-10.1); CARBON DIOXIDE 25 MMOL/L (21-32); CHLORIDE 99 MMOL/L (98-107); CREATININE SERUM 1.04 MG/DL (0.60-1.30); GFR ESTIMATED > 60; GLUCOSE 98 MG/DL (70-105); POTASSIUM 4.2 MMOL/L (3.6-5.0); SODIUM 139 MMOL/L (135-145)
[2019-01-06 14:44] LABS: ALANINE AMINOTRANSFERASE 14 U/L (0-55); TOTAL PROTEIN 7.4 GM/DL (6.4-8.2)
== END ==
LOC: LAB FS 11:20
PROVIDERS: ATTEND Internal Medicine Hematology & Oncology
DX: C34.2 Malignant neoplasm of middle lobe, bronchus or lung (principal)
CPT/HCPCS: 36415; 80053; 82378; 85007; 85027

== ENCOUNTER 2019-02-23 09:55 | Inpatient (IN) | payer MEDICARE, OTHER ==
[~2019-02-23] VITALS: Ht 180 cm; Wt 72.0 kg
--- NOTE | 2019-02-23 10:22 | ED Cough/URI ---
General Chief Complaint: Respiratory Problems Stated Complaint: VOMITING;CHILLS;WEAKNESS Nursing Triage Note: Patient here with daughter who states he has not felt well since Sunday night. Has been sleeping 14 hours per night, coughing up yellow/green sputum, having yellow/green nasal discharge, and mild confusion per daughter. Started taking clindamycin that he had at home yesterday morning. Is also having nausea, no vomiting. Took 4 mg zofran tablet prior to arrival to ED. Sepsis Screen: No Definite Risk Source: patient, family History of Present Illness Date Seen by Provider: Feb 23, 2019 Time Seen by Provider: 09:58 Initial Comments 78-year-old male presenting with complaints of not feeling well since Sunday. He has history of recurrent pneumonia. He has been coughing up thick yellow-green sputum. He has been having he uses oxygen more this weekend. Normally only uses the supplemental oxygen when he sleeps. He has not had the energy to do his normal chores and ADLs at home. He this along but his daughter and family had come to visit and help him this weekend. Today he told them that he was feeling nauseated and was too sick to manage caring for himself when they left to go home. He asked to come to the emergency department because he felt like he needed to be in the hospital. He has chronic incontinence of urine and stool. He has not had any subjective fever or chills. He has been having some nasal drainage that has also been yellow-green in color. He did have a prescription for clindamycin 300 mg 3 times a day for [address] Paredes and told him to start taking if he felt bad. He started taking this on Sunday. After taking this he started to have some clearing of the congestion but it was colored again today. The daughter also states that he had some mild confusion this weekend compared to his baseline. He was given a 4 mg Zofran today. He also takes chronic famotidine for chronic GI upset. Allergies and Home Medications Allergies Coded Allergies: baclofen (Verified Allergy, Unknown, 11/24/18) metoclopramide (Verified Allergy, Unknown, 11/24/18) Home Medications Afatinib Dimaleate 30 Mg Tablet, 30 MG PO DAILY Please call Oncology for when to restart meds Prescribed by: KENNEDY CLINE on 11/25/18 1235 Albuterol Sulfate 1 Puff Puff, 1 PUFF INH Q4H PRN for SHORTNESS OF BREATH, (Reported) 1 PUFF = 90 MCG Amlodipine Besylate 10 Mg Tablet, 10 MG PO DAILY, (Reported) Ascorbic Acid 500 Mg Tablet, 500 MG PO DAILY, (Reported) Carboxymethylcellulose Sodium 15 Ml Drops, 1 DROP OD Q2H, (Reported) Fentanyl 1 Each Patch.td72, 100 MCG TD Q72H, (Reported) Gabapentin 300 Mg Capsule, 600 MG PO TID, (Reported) TAKES 2 (300MG) CAPSULES Ipratropium/Albuterol Sulfate 3 Ml Ampul.neb, 3 ML IH Q12H PRN for SHORTNESS OF BREATH, (Reported) Loratadine 10 Mg Tablet, 10 MG PO DAILY, (Reported) Mineral Oil/Petrolatum,White 3.5 Gm Oint...g., OD HS, (Reported) Multivitamin 1 Each Tablet, 1 TAB PO DAILY, (Reported) Nystatin 15 Gm Cream..g., TOP BID PRN for RASH, (Reported) Omeprazole 20 Mg Capsule.dr, 20 MG PO DAILY, (Reported) Ondansetron 4 Mg Tab.rapdis, 4 MG PO Q8H PRN for NAUSEA/VOMITING-1ST LINE, (Reported) Oxycodone HCl 5 Mg Tablet, 5 MG PO Q6H PRN for PAIN-SEVERE, (Reported) Paroxetine HCl 20 Mg Tablet, 20 MG PO DAILY, (Reported) Potassium Chloride 10 Meq Tab.er.prt, 20 MEQ PO DAILY, (Reported) TAKES 2 (10MEQ) TABLETS Prednisolone Acetate/Pf 5 Ml Drops.susp, 1 DROP OD BID, (Reported) Tamsulosin HCl 0.4 Mg Cap, 0.4 MG PO 1800, (Reported) Triamcinolone Acetonide 80 Gm Oint...g., TOP BID PRN for SKIN, (Reported) Patient Home Medication List Home Medication List Reviewed: Yes Review of Systems Review of Systems Constitutional: No chills, No fever; malaise, weakness EENTM: hoarseness, nose congestion; No epistaxis Respiratory: cough; No hemoptysis; short of breath; No stridor, No wheezing Cardiovascular: No chest pain Gastrointestinal: No abdominal pain; nausea; No vomiting Genitourinary: No dysuria; incontinence (chronic) Musculoskeletal: muscle pain (chronic pain and he takes percocet and duragesic patch for this. Duragesic patch changed this am.) Skin: No rash Psychiatric/Neurological: Denies Headache; Weakness (generalized) Past Iobwcgg-Qbtwbt-Isgpkc Hx Past Med/Social Hx: Reviewed Nursing Past Med/Soc Hx Patient Social History Alcohol Beverage of Choice: Beer, Whiskey Type Used: Cigarettes Former Smoker, Quit: Apr 23, 1969 2nd Hand Smoke Exposure: No Recent Foreign Travel: No Contact w/Someone Who Travel: No Recent Infectious Disease Expo: No Recent Hopitalizations: No Immunizations Up To Date Tetanus Booster (TDap): Unknown Date of Pneumonia Vaccine: Feb 04, 2016 Date of Influenza Vaccine: Jan 09, 2018 Seasonal Allergies Seasonal Allergies: Yes Past Medical History Surgeries: Yes (Past hx of Suprapubic catheter, L TKR, Neuro stimulator placed and removed) Eye Surgery, Gallbladder, Joint Replacement, Orthopedic Respiratory: Yes (has home 02, has only used once in 2 years) Pneumonia, COPD Currently Using CPAP: No Currently Using BIPAP: No Cardiac: Yes Hypertension Neurological: Yes Concussion, Neuropathy, Traumatic Brain Injury Genitourinary: Yes (urinary incontinence, past hx of Suprapubic catheter, prostate problems) Prostate Problems, UTI-Chronic Gastrointestinal: Yes (on Iron replacement, Hx of abnormal LFT's) Abdominal Hernia, Gastrointestinal Bleed Musculoskeletal: Yes (chronic pain lower ext from trauma, run over by a tractor) Arthritis, Back Injury, Chronic Back Pain Endocrine: No HEENT: Yes (dry eyes, doesn't make tears) Loss of Vision: Right Hearing Impairment: Hard of Hearing, Hearing Aide Right, 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 Did You Recieve Any Treatments: Yes What Type of Treatment Did You: Chemotherapy Psychosocial: No Integumentary: Yes (thin/frail skin, scattered ecchymosis) Recent Skin Changes Blood Disorders: No Adverse Reaction/Blood Tranf: No Family Medical History Arthritis Colon cancer Coronary thrombosis Hypertension Myocardial infarction Respiratory disorder Heart Disease, Cancer, Hypertension Physical Exam Vital Signs - First Documented 02/23/19 09:58 Temp 36.9 Pulse 83 Resp 20 B/P (MAP) 154/71 (98) Pulse Ox 96 O2 Delivery Nasal Cannula O2 Flow Rate 2.00 Capillary Refill : Less Than 3 Seconds Height: 5'11.00" Weight: 165lbs. 8.0oz. 74.322511qn; 23.00 BMI Method:Stated General Appearance: WD/WN, no apparent distress Eyes: Right Eye Abnormal Pupil (prior surgery); Bilateral Eye EOMI HEENT: normal ENT inspection, pharynx normal Neck: non-tender, full range of motion, supple, normal inspection Respiratory: chest non-tender, no respiratory distress, no accessory muscle use, decreased breath sounds Cardiovascular: normal peripheral pulses, regular rate, rhythm, extra beats Gastrointestinal: normal bowel sounds, non tender, soft, no pulsatile mass Extremities: normal range of motion, no calf tenderness, normal capillary refill, other (chronic pain to extremities, worse in right foot) Neurologic/Psychiatric: alert, normal mood/affect, oriented x 3 Skin: normal color, warm/dry Focused Exam Lactate Level 02/23/19 10:25: Lactic Acid Level 1.16 Lactic Acid Level Laboratory Tests Test 02/23/19 10:25 Lactic Acid Level 1.16 MMOL/L (0.50-2.00) Progress/Results/Core Measures Suspected Sepsis Recent Fever Within 48 Hours: No Infection Criteria Present: Suspected New Infection New/Unexplained Altered Menta: No Sepsis Screen: No Definite Risk SIRS Temperature: Pulse: 83 Respiratory Rate: 20 Laboratory Tests 02/23/19 10:25: White Blood Count 13.5H Blood Pressure 154 /71 Mean: 98 02/23/19 10:25: Lactic Acid Level 1.16 Laboratory Tests 02/23/19 10:25: Creatinine 0.69, Platelet Count 199, Total Bilirubin 0.9 Results/Orders Lab Results Laboratory Tests Test 02/23/19 10:25 Range/Units White Blood Count 13.5 H 4.3-11.0 10^3/uL Red Blood Count 4.01 L 4.35-5.85 10^6/uL Hemoglobin 11.3 L 13.3-17.7 G/DL Hematocrit 36 L 40-54 % Mean Corpuscular Volume 89 80-99 FL Mean Corpuscular Hemoglobin 28 25-34 PG Mean Corpuscular Hemoglobin Concent 32 32-36 G/DL Red Cell Distribution Width 13.8 10.0-14.5 % Platelet Count 199 130-400 10^3/uL Mean Platelet Volume 10.5 H 7.4-10.4 FL Neutrophils (%) (Auto) 85 H 42-75 % Lymphocytes (%) (Auto) 7 L 12-44 % Monocytes (%) (Auto) 4 0-12 % Eosinophils (%) (Auto) 3 0-10 % Basophils (%) (Auto) 0 0-10 % Neutrophils # (Auto) 11.5 H 1.8-7.8 X 10^3 Lymphocytes # (Auto) 0.9 L 1.0-4.0 X 10^3 Monocytes # (Auto) 0.6 0.0-1.0 X 10^3 Eosinophils # (Auto) 0.4 H 0.0-0.3 10^3/uL Basophils # (Auto) 0.0 0.0-0.1 10^3/uL Neutrophils % (Manual) 79 % Lymphocytes % (Manual) 9 % Monocytes % (Manual) 6 % Eosinophils % (Manual) 3 % Basophils % (Manual) 0 % Metamyelocytes % 1 % Band Neutrophils 2 % Sodium Level 142 135-145 MMOL/L Potassium Level 3.9 3.6-5.0 MMOL/L Chloride Level 99 98-107 MMOL/L Carbon Dioxide Level 30 21-32 MMOL/L Anion Gap 13 5-14 MMOL/L Blood Urea Nitrogen 11 7-18 MG/DL Creatinine 0.69 0.60-1.30 MG/DL Estimat Glomerular Filtration Rate > 60 BUN/Creatinine Ratio 16 Glucose Level 125 H 70-105 MG/DL Lactic Acid Level 1.16 0.50-2.00 MMOL/L Calcium Level 9.2 8.5-10.1 MG/DL Corrected Calcium 9.4 8.5-10.1 MG/DL Magnesium Level 1.8 1.6-2.4 MG/DL Total Bilirubin 0.9 0.1-1.0 MG/DL Aspartate Amino Transf (AST/SGOT) 48 H 5-34 U/L Alanine Aminotransferase (ALT/SGPT) 45 0-55 U/L Alkaline Phosphatase 137 H 40-136 U/L Total Protein 7.2 6.4-8.2 GM/DL Albumin 3.8 3.2-4.5 GM/DL Micro Results Microbiology 02/23/19 Influenza Types A,B Antigen (LEA) - Final, Complete My Orders Orders - IMMANUEL GARCIA MD Cbc With Automated Diff (02/23/19 10:12) Comprehensive Metabolic Panel (02/23/19 10:12) Blood Culture (02/23/19 10:12) Magnesium (02/23/19 10:12) Chest Pa/Lat (2 View) (02/23/19 10:12) Ekg Tracing (02/23/19 10:12) O2 (02/23/19 10:12) Ed Iv/Invasive Line Start (02/23/19 10:12) Monitor-Rhythm Ecg Trace Only (02/23/19 10:12) Lactic Acid Analyzer (02/23/19 10:12) Sputum Culture (02/23/19 10:12) Influenza A And B Antigens (02/23/19 10:12) Pantoprazole Injection (Protonix Injecti (02/23/19 10:31) Manual Differential (02/23/19 10:25) Piperacillin Sodium/Tazobactam (Zosyn Vi (02/23/19 11:41) Ns Iv 1000 Ml (Sodium Chloride 0.9%) (02/23/19 11:45) Vital Signs/I&O 02/23/19 02/23/19 02/23/19 09:58 09:58 10:36 Temp 36.9 Pulse 83 Resp 20 B/P (MAP) 154/71 (98) Pulse Ox 96 96 93 O2 Delivery Nasal Cannula Nasal Cannula O2 Flow Rate 2.00 2.00 Capillary Refill : Less Than 3 Seconds Blood Pressure Mean: 98 POS Progress Note #1: Progress Note obtain basic labs, cultures of blood and sputum, chest xray to look for infection, influenza swab, ECG. Progress Note #2: Progress Note Labs show a mild elevation of the white blood cell count to 13.5 thousand with a left shift. He has a normal lactic acid of 1.16. His chemistry panel appear stable. His chest x-ray does show a developing left upper lobe infiltrate with effusion. His EKG is stable without acute changes. Influenza A and B are both negative. On his supplemental oxygen he is maintaining his O2 sat. With him having some confusion per family and age over 65 his CURB-65 score is 2 which would put him at a moderate risk for 30 day mortality from pneumonia. ECG Initial ECG Impression Date: Feb 23, 2019 Initial ECG Impression Time: 11:24 Initial ECG Rate: 78 Initial ECG Rhythm: Normal Sinus Initial ECG Comparisson: Unchanged Comment Normal sinus rhythm with a heart rate of 78 bpm. IA interval 170 ms. Frequent PACs. QT interval 383 ms with a QT corrected interval [address] elevation or ischemic changes. Similar to prior tracings. Diagnostic Imaging Diagonstic Imaging: Xray Plain Films/CT/US/NM/MRI: chest Comments NAME: [facility] REC#: [id number] PT STATUS: REG ER : 1940 PHYSICIAN: IMMANUEL GARCIA MD ADMIT DATE: 02/23/19/ER FS Draft POSDate of Exam:02/23/19 CHEST PA/LAT (2 VIEW) INDICATION: Cough. COMPARISON: 11/22/2018. FINDINGS: Frontal and lateral views of the chest demonstrate new interstitial infiltrates in the left upper lobe. There is trace effusion in the left base. The right lung is stable. The heart is prominent without pulmonary edema. There is no pneumothorax. Osseous structures are stable. IMPRESSION: Developing infiltrates in the left upper lobe with trace effusion. Follow-up recommended. Dictated on workstation # [id number] Dict: 02/23/19 1100 Trans: 02/23/19 [id number] [id number] Interpreted by: TIRSO NAGEL Electronically signed by: Departure Communication (Admissions) Time/Spoke to Admitting Phy: 11:24 Discussed with [facility] admitting attending Dr. Sullivan. She states that she is familiar with the patient. With his history of lung cancer and being in and out of the hospital she prefers having the patient on Zosyn and the pneumonia pathway. Impression Primary Impression: Left upper lobe pneumonia Qualified Codes: J18.1 - Lobar pneumonia, unspecified organism Additional Impression: Generalized weakness Disposition: ADMITTED INPATIENT Condition: Stable Admissions Decision to Admit Reason: Admit from ER (General) Decision to Admit/Date: Feb 23, 2019 Time/Decision to Admit Time: 11:24 Departure-Patient Inst. Referrals: SANYA,SADIA DENT (PCP/Family) Primary Care Physician IMMANUEL GARCIA MD Feb 23, 2019 10:22 POS
[2019-02-23] MEDS ORDERED: PANTOPRAZOLE 40 MG (PROTONIX) VIAL IV STA (10:31)
[2019-02-23 10:42] LABS: EOSINOPHILS % (AUTO) 3 % (0-10); HEMATOCRIT 36 % (40-54); HEMOGLOBIN 11.3 G/DL (13.3-17.7); LYMPHOCYTES % (AUTO) 7 % (12-44); MEAN CORPUSCULAR HEMOGLOBIN 28 PG (25-34); MEAN CORPUSCULAR HGB CONC 32 G/DL (32-36); MEAN CORPUSCULAR VOLUME 89 FL (80-99); MEAN PLATELET VOLUME 10.5 FL (7.4-10.4); MONOCYTES % (AUTO) 4 % (0-12); NEUTROPHILS % (AUTO) 85 % (42-75); PLATELET COUNT 199 10^3/uL (130-400); RED CELL DISTRIBUTION WIDTH 13.8 % (10.0-14.5); WHITE BLOOD COUNT 13.5 10^3/uL (4.3-11.0)
[2019-02-23 10:43] LABS: BASOPHILS % (AUTO) 0 % (0-10); EOSINOPHILS # (AUTO) 0.4 10^3/uL (0.0-0.3); LYMPHOCYTES # (AUTO) 0.9 X 10^3 (1.0-4.0); MONOCYTES # (AUTO) 0.6 X 10^3 (0.0-1.0); NEUTROPHILS # (AUTO) 11.5 X 10^3 (1.8-7.8)
[2019-02-23 10:57] LABS: BUN/CREATININE RATIO 16; CALCIUM 9.2 MG/DL (8.5-10.1); CARBON DIOXIDE 30 MMOL/L (21-32); CHLORIDE 99 MMOL/L (98-107); CREATININE SERUM 0.69 MG/DL (0.60-1.30); GFR ESTIMATED > 60; GLUCOSE 125 MG/DL (70-105); POTASSIUM 3.9 MMOL/L (3.6-5.0); SODIUM 142 MMOL/L (135-145)
[2019-02-23 10:58] LABS: ALANINE AMINOTRANSFERASE 45 U/L (0-55); ALBUMIN 3.8 GM/DL (3.2-4.5); ALKALINE PHOSPHATASE 137 U/L (40-136); BILIRUBIN,TOTAL 0.9 MG/DL (0.1-1.0); MAGNESIUM 1.8 MG/DL (1.6-2.4); TOTAL PROTEIN 7.2 GM/DL (6.4-8.2)
[2019-02-23 11:02] LABS: BAND NEUTROPHILS 2 %; BASOPHILS % (MANUAL) 0 %; EOSINOPHILS % (MANUAL) 3 %; LYMPHOCYTES % (MANUAL) 9 %; METAMYELOCYTES % 1 %; MONOCYTES % (MANUAL) 6 %; NEUTROPHILS % (MANUAL) 79 %
--- NOTE | 2019-02-23 11:03 | Diagnostic Imaging Report ---
INDICATION: Cough. COMPARISON: 11/22/2018. FINDINGS: Frontal and lateral views of the chest demonstrate new interstitial infiltrates in the left upper lobe. There is trace effusion in the left base. The right lung is stable. The heart is prominent without pulmonary edema. There is no pneumothorax. Osseous structures are stable. IMPRESSION: Developing infiltrates in the left upper lobe with trace effusion. Follow-up recommended. Dictated by: Dictated on workstation # [id number]
[2019-02-23] MEDS ORDERED: PIPERACILLIN SODIUM/TAZOBACTAM 4.5 GM in NS (IVPB) 100 ML IV STA (11:41)
[2019-02-23] MEDS: NS IV 1000 ML 1,000 ML IV SCH ×2 (12:04→15:19)
[2019-02-23 13:27] VITALS: BP 112/74
[2019-02-23] MEDS ORDERED: ACETAMINOPHEN 325 MG TABLET PO PRN (13:45)
[2019-02-23] MEDS ORDERED: ONDANSETRON 4 MG/2 ML (SDV) Z0FRAN IV PRN (13:45)
[2019-02-23] MEDS ORDERED: FLU QUADRIvalent (5+ YOA) 2019-2020 (AFLURIA) 0.5 ML IM ONE (14:00)
--- NOTE | 2019-02-23 14:08 | History & Physical-Hospitalist ---
History of Present Illness HPI/Chief Complaint Chief complaint: Pneumonia and lung cancer and debilitated patient History of present illness: This is an 78-year-old white male known to me from prior hospital stays including an inpatient rehab stay after pneumonia who has a history of lung cancer on chemotherapy and a recent issue with blood in the stool status post endoscopy revealing no mass who presented to [place] [facility] with complaints of shortness of breath and fever and not feeling well and his family brought him to the ER patient was found to have a pneumonia with elevated white count normal lactic acid but very debilitated in need of inpatient hospita l stay with supportive care and IV antibiotics. He does continue using oxygen at home and has not had any significant hospital stays since I last admitted him to [facility]. I have restarted his oxycodone gabapentin and fentanyl patch which he is already asking about. Source: patient Exam Limitations: no limitations Date Seen 02/23/19 Time Seen by a Provider: 14:15 Attending Physician Amanda Sullivan DO PCP Self,David DENT Referring Physician Date of Admission Feb 23, 2019 at 11:58 Home Medications & Allergies Home Medications Reviewed patient Home Medication Reconciliation performed by pharmacy medication reconciliations installation and repair technician and/or nursing. Patients Allergies have been reviewed. Allergies Allergies Coded Allergies baclofen (Verified Allergy, Unknown, 11/24/18) metoclopramide (Verified Allergy, Unknown, 11/24/18) Past Skcamye-Aelrld-Emtssw Hx Past Med/Social Hx: Reviewed Nursing Past Med/Soc Hx, Reviewed and Corrections made Patient Social History Marrital Status: Employed/Student: retired Alcohol Use: Occasionally Uses Number of Drinks Today: GG Alcohol Beverage of Choice: Beer, Whiskey Recreational Drug Use: No Smoking Status: Former Smoker Former Smoker, Quit: Apr 23, 1969 Type Used: Cigarettes 2nd Hand Smoke Exposure: No Recent Foreign Travel: No Contact w/other who traveled: No Recent Hopitalizations: No Recent Infectious Disease Expo: Yes Immunizations Up To Date Tetanus Booster (TDap): Unknown Date of Pneumonia Vaccine: Feb 04, 2016 Date of Influenza Vaccine: Jan 09, 2018 Seasonal Allergies Seasonal Allergies: Yes Past Medical History Surgeries: Eye Surgery, Gallbladder, Joint Replacement, Orthopedic Respiratory: COPD, Pneumonia Currently Using CPAP: No Currently Using BIPAP: No Cardiac: Hypertension Neurological: Concussion, Neuropathy, Traumatic Brain Injury Genitourinary: Prostate Problems, UTI-Chronic Gastrointestinal: Abdominal Hernia, Gastrointestinal Bleed Musculoskeletal: Arthritis, Back Injury, Chronic Back Pain Loss of Vision: Right Hearing Impairment: Hard of Hearing, Hearing Aide Right, Deaf Cancer: Lung Did You Recieve Any Treatments: Yes What Type of Treatment Did You: Chemotherapy Skin/Integumentary: Recent Skin Changes History of Blood Disorders: No Adverse Reaction to Blood Buitrago: No Family History Arthritis Colon cancer Coronary thrombosis Hypertension Myocardial infarction Respiratory disorder Heart Disease, Cancer, Hypertension Review of Systems Constitutional: see HPI, dizziness, fever, malaise, weakness Respiratory: dyspnea on exertion Cardiovascular: no symptoms reported Musculoskeletal: no symptoms reported Psychiatric/Neurological: Depressed Physical Exam Physical Exam Vital Signs Vital Signs - First Documented 02/23/19 02/23/19 09:58 15:49 Temp 36.9 Pulse 83 Resp 20 B/P (MAP) 154/71 (98) Pulse Ox 96 O2 Delivery Nasal Cannula O2 Flow Rate 2.00 FiO2 28 Capillary Refill : Less Than 3 Seconds Height, Weight, BMI Height: 5'11.00" Weight: 165lbs. 8.0oz. 74.878328ty; 22.59 BMI Method:Stated General Appearance: No Apparent Distress, WD/WN, Chronically ill Eyes: Right Eye Normal Inspection, Right Eye PERRL HEENT: PERRL/EOMI, Normal ENT Inspection, Pharynx Normal, Moist Mucous Membranes Neck: Full Range of Motion, Normal Inspection, Non Tender Respiratory: Chest Non Tender, No Accessory Muscle Use, No Respiratory Distress, Crackles, Decreased Breath Sounds, Wheezing Cardiovascular: Regular Rate, Rhythm, No Edema, No Gallop, No JVD, No Murmur, Normal Peripheral Pulses Gastrointestinal: Normal Bowel Sounds, No Organomegaly, No Pulsatile Mass, Non Tender, Soft Back: Normal Inspection, No CVA Tenderness, No Vertebral Tenderness Extremity: Normal Capillary Refill, Normal Inspection, Normal Range of Motion, Non Tender, No Calf Tenderness, No Pedal Edema Neurologic/Psychiatric: Alert, Oriented x3, No Motor/Sensory Deficits, Normal Mood/Affect Skin: Normal Color, Warm/Dry Lymphatic: No Adenopathy Results Results/Procedures Labs Laboratory Tests 02/23/19 10:25 Patient resulted labs reviewed. Assessment/Plan Admission Diagnosis Assessment: Pneumonia Chronic Debility Lung cancer hx on chemotherapy HTN Neuropathy TBI hx Depression GERD Chronic pain Chronic incontinence Plan: Pneumonia protocol Incontinence residential meds (2) RESPIRATORY FAILURE, UNSP, UNSP W HYPOXIA OR HYPERCAPNIA (3) Lung cancer (4) Chronic pain (5) Essential (primary) hypertension (6) TBI (traumatic brain injury) hx (7) Anemia (8) Elevated brain natriuretic peptide (BNP) level (11) H/O prostatectomy (12) Urinary incontinence Admission Status: Inpatient Order (span 2 midnights) Reason for Inpatient Admission: Pneumonia in lung cancer patient Diagnosis/Problems Diagnosis/Problems (1) Left upper lobe pneumonia Status: Acute Qualifiers: Pneumonia type: due to unspecified organism Qualified Codes: J18.1 - Lobar pneumonia, unspecified organism (2) Generalized weakness Status: Acute AMANDA SULILVAN DO Feb 23, 2019 14:08 POS
--- NOTE | 2019-02-23 14:25 | Diagnostic Imaging Report ---
INDICATION: Shortness of air. EXAMINATION: Chest, 02/23/2019. COMPARISON: 02/23/2019 at 10:17 a.m. FINDINGS: Persistent scattered airspace opacities throughout the lungs noted, most pronounced in the left mid lung and increased from previous imaging. This is likely a developing infiltrate. Remaining lungs are stable. Heart is unchanged. Pulmonary vasculature is stable. IMPRESSION: 1. Possible developing left mid lung infiltrate. Remaining chest unchanged. Dictated by: Dictated on workstation # [id number]
[2019-02-23] MEDS ORDERED: fentaNYL PATCH 100 MCG (DURAGESIC) TD SCH (15:00)
[2019-02-23] MEDS: GABAPENTIN 300 MG (NEURONTIN) CAP PO SCH ×2 (15:19→21:19)
[2019-02-23 15:49] VITALS: BP 154/71
[2019-02-23 16:00] VITALS: BP 133/62
[2019-02-23] MEDS ORDERED: RT-ALBUTEROL/IPRATROPIUM 3 ML (DUONEB) VIAL INH PRN (16:00)
[2019-02-23] MEDS: PIPERACILLIN/TAZO 4.5 GM/NS 100 ML IV SCH ×2 (18:13)
[2019-02-23] MEDS: RT-ALBUTEROL/IPRATROPIUM 3 ML (DUONEB) VIAL INH SCH ×2 (19:34→23:41)
[2019-02-23 20:00] VITALS: BP 135/67
[2019-02-24 00:40] VITALS: BP 125/67
[2019-02-24] MEDS: NS IV 1000 ML 1,000 ML IV SCH ×4 (01:49→18:38)
[2019-02-24] MEDS: PIPERACILLIN/TAZO 4.5 GM/NS 100 ML IV SCH ×6 (01:49→19:50)
[2019-02-24] MEDS: RT-ALBUTEROL/IPRATROPIUM 3 ML (DUONEB) VIAL INH SCH ×6 (03:22→22:19)
[2019-02-24 04:39] VITALS: BP 129/68
[2019-02-24 06:11] LABS: BASOPHILS % (AUTO) 0 % (0-10); EOSINOPHILS # (AUTO) 0.7 10^3/uL (0.0-0.3); EOSINOPHILS % (AUTO) 10 % (0-10); HEMATOCRIT 32 % (40-54); HEMOGLOBIN 9.9 G/DL (13.3-17.7); LYMPHOCYTES # (AUTO) 1.7 X 10^3 (1.0-4.0); LYMPHOCYTES % (AUTO) 24 % (12-44); MEAN CORPUSCULAR HEMOGLOBIN 28 PG (25-34); MEAN CORPUSCULAR HGB CONC 31 G/DL (32-36); MEAN CORPUSCULAR VOLUME 89 FL (80-99); MEAN PLATELET VOLUME 10.9 FL (7.4-10.4); MONOCYTES # (AUTO) 0.6 X 10^3 (0.0-1.0); MONOCYTES % (AUTO) 9 % (0-12); NEUTROPHILS % (AUTO) 58 % (42-75); PLATELET COUNT 178 10^3/uL (130-400); RED CELL DISTRIBUTION WIDTH 14.3 % (10.0-14.5)
[2019-02-24 06:17] LABS: ALANINE AMINOTRANSFERASE 29 U/L (0-55); ALKALINE PHOSPHATASE 97 U/L (40-136); BILIRUBIN,TOTAL 0.6 MG/DL (0.1-1.0); BUN/CREATININE RATIO 13; CALCIUM 8.7 MG/DL (8.5-10.1); CARBON DIOXIDE 27 MMOL/L (21-32); CHLORIDE 102 MMOL/L (98-107); CREATININE SERUM 0.72 MG/DL (0.60-1.30); GFR ESTIMATED > 60; GLUCOSE 93 MG/DL (70-105); POTASSIUM 3.7 MMOL/L (3.6-5.0); SODIUM 139 MMOL/L (135-145); TOTAL PROTEIN 6.1 GM/DL (6.4-8.2)
[2019-02-24 08:00] VITALS: BP 123/58
[2019-02-24] MEDS: GABAPENTIN 300 MG (NEURONTIN) CAP PO SCH ×3 (08:11→20:46)
--- NOTE | 2019-02-24 08:48 | Diagnostic Imaging Report ---
INDICATION: Left lung infiltrate. TECHNIQUE: PA and lateral chest obtained at 8:43 a.m. and compared to 02/23/2019. FINDINGS: Heart is normal in size. Mediastinal silhouette is unremarkable. There is no significant change in left midlung infiltrate. There are chronic-appearing increased interstitial markings. There are old right-sided rib fractures. There is a trace of pleural fluid in the left costophrenic angle. Spinal stimulator device is in place over the thoracic canal. IMPRESSION: Stable appearance of the left midlung infiltrate compared to the prior study. Underlying chronic-appearing increased interstitial markings. There is a trace of pleural fluid in the left costophrenic angle. Dictated by: Dictated on workstation # [id number]
--- NOTE | 2019-02-24 10:03 | NUR ---
Initial visit by chaplain Roxy Farah: The pt is Sabianist and demonstrates trust in God. 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 Requested prayer for healing.
--- NOTE | 2019-02-24 11:02 | Progress Note - Hospitalist ---
ALLIE WHITE,MED STUDENT 02/24/19 1102: Subjective HPI/CC On Admission Date Seen by Provider: Feb 24, 2019 Time Seen by Provider: 08:20 Chief complaint: Pneumonia and lung cancer and debilitated patient History of present illness: This is an 78-year-old white male known to me from prior hospital stays including an inpatient rehab stay after pneumonia who has a history of lung cancer on chemotherapy and a recent issue with blood in the stool status post endoscopy revealing no mass who presented to [facility] with complaints of shortness of breath and fever and not feeling well and his family brought him to the ER patient was found to have a pneumonia with elevated white count normal lactic acid but very debilitated in need of inpatient hospital stay with supportive care and IV antibiotics. He does continue using oxygen at home and has not had any significant hospital stays since I last admitted him to [facility]. I have restarted his oxycodone gabapentin and fentanyl patch which he is already asking about. Subjective/Events-last exam Pt states he is feeling a little stronger today Cough has mostly resolved except on deep inspiration No longer experiencing shortness of breath No longer fevering, WBC fallen to 7 Complains of significant ongoing toe pain Not accompanied by family members Focused Exam Lactate Level 02/23/19 10:25: Lactic Acid Level 1.16 Objective Exam Vital Signs Vital Signs Date Time Temp Pulse Resp B/P (MAP) Pulse Ox O2 Delivery O2 Flow Rate FiO2 02/24/19 08:00 36.1 75 20 123/58 (79) 94 Room Air 02/24/19 08:00 3.00 02/23/19 15:49 28 Capillary Refill : Less Than 3 SecondsLess Than 3 Seconds General Appearance: No Apparent Distress, Chronically ill, Thin HEENT: PERRL/EOMI; No Pale Conjunctivae (L), No Pale Conjunctivae (R) Respiratory: Chest Non Tender, No Accessory Muscle Use, No Respiratory Distress, Wheezing (R/L upper lobes. very minimal. cleared after coughing ) Cardiovascular: Regular Rate, Rhythm, No Edema, No Gallop, No Murmur Rectal: Deferred Neurologic/Psychiatric: Alert, Oriented x3 Skin: Normal Color, Warm/Dry Results/Procedures Lab Laboratory Tests 02/24/19 05:20 Patient resulted labs reviewed. Assessment/Plan Assessment and Plan Assess & Plan/Chief Complaint Pneumonia Chronic Debility Lung cancer hx on chemotherapy HTN Neuropathy TBI hx Depression GERD Chronic pain Chronic incontinence Continue IVF, pain control and antibiotic therapy. Restart home meds Begin PT to increase ambulation Discussed with patient discharging if he is feeling well on Wed. If he is not, discussed possibility of admission to rehab unit. Clinical Quality Measures DVT/VTE Risk/Contraindication: Risk Factor Score Per Nursin RFS Level Per Nursing on Admit: 3=High AMANDA SULLIVAN DO 02/24/192055: Subjective Subjective/Events-last exam Pt doing a little better Appears to be declined since last seen a couple months ago Will initiate PT and OT May be an inpatient rehab candidate Home meds will all be restarted in the near future Review of Systems General: Fatigue Pulmonary: Dyspnea, Cough Objective Exam General Appearance: No Apparent Distress, WD/WN, Cachetic Respiratory: Chest Non Tender, No Accessory Muscle Use, No Respiratory Distress, Crackles, Decreased Breath Sounds, Wheezing (R/L upper lobes. very minimal. cleared after coughing ) Neurologic/Psychiatric: Alert, Oriented x3, No Motor/Sensory Deficits, Normal Mood/Affect Assessment/Plan Assessment and Plan Assess & Plan/Chief Complaint PT/OT Home meds IV abx Nebs IRF? Supervisory-Addendum Brief Verification & Attestation Participated in pt care: history, MDM, physical Personally performed: exam, history, MDM, supervision of care Care discussed with: Medical Student Procedures: n/a Results interpretation: Verified all documentation Verification and Attestation of Medical Student E/M Service A medical student performed and documented this service in my presence. I reviewed and verified all information documented by the medical student and made modifications to such information, when appropriate. I personally performed the physical exam and medical decision making. Amanda Sullivan, Feb 24, 2019,20:55 ALLIE WHITE,MED STUDENT Feb 24, 2019 11:02 AMANDA NG DO Feb 24, 2019 20:56 POS
[2019-02-24 11:10] VITALS: BP 123/58
[2019-02-24] MEDS ORDERED: TR025C15 TOP (11:37)
[2019-02-24] MEDS ORDERED: UMEC1BLS IH (11:37)
[2019-02-24] MEDS ORDERED: [UNRECOGNIZED DRUG - CODE] PO (11:42)
--- NOTE | 2019-02-24 11:43 | NUR ---
SPOKE WITH PT WELL GOING THRU THE EXT MED HISTORY TO COMPLETE THE MED REC. PT WAS ABLE TO TELL ME WHEN/HOW HE TAKES HIS MEDICATIONS AND IT MATCHED TO EXT MED HIS. GILOTRIF 30MG: PT GETS THIS FROM [facility] IN [place]. I SPOKE WITH THEM AND VERIFIED THIS AND SAID IT WAS SHIPPED OUT TO HIM RECENTLY. HIS LAST DOSE WAS 02-22-2019. OTC MEDS: MTV VIT C REFRESH DROPS SYSTANE DROPS
--- NOTE | 2019-02-24 11:57 | Physical Therapy Evaluation ---
PT Evaluation-General Medical Diagnosis Admission Date Feb 23, 2019 at 11:58 Medical Diagnosis: Pneumonia, Lung CA, debility Onset Date: Feb 23, 2019 Therapy Diagnosis Therapy Diagnosis: Debility, weakness, SOB, decreased activity joby Height/Weight Height (Feet): 5 Height (Inches): 11.00 Weight (Pounds): 165 Weight (Ounces): 8.0 Precautions Precautions/Isolations: Fall Prevention, Standard Precautions Weight Bear Status Right Lower Extremity: Right Weight Bearing/Tolerated Left Lower Extremity: Left Weight Bearing/Tolerated Referral Physician: Nate Reason for Referral: Evaluation/Treatment Medical History Pertinent Medical History: Arthritis, Neuropathy Additional Medical History Past Medical History Surgeries: Eye Surgery, Gallbladder, Joint Replacement, Orthopedic Respiratory: COPD, Pneumonia Currently Using CPAP: No Currently Using BIPAP: No Cardiac: Hypertension Neurological: Concussion, Neuropathy, Traumatic Brain Injury Genitourinary: Prostate Problems, UTI-Chronic Gastrointestinal: Abdominal Hernia, Gastrointestinal Bleed Musculoskeletal: Arthritis, Back Injury, Chronic Back Pain Loss of Vision: Right Hearing Impairment: Hard of Hearing, Hearing Aide Right, Deaf Cancer: Lung Did You Recieve Any Treatments: Yes What Type of Treatment Did You: Chemotherapy Skin/Integumentary: Recent Skin Changes History of Blood Disorders: No Adverse Reaction to Blood Buitrago: No Reviewed History: Yes Social History Home: Multilevel (pt does not have to go up to second level) Current Living Status: Alone (pt reports he has a nurse come in he thinks once a day) Entry Into Home: Ramp Prior Prior Level of Function SCALE: Activities may be completed with or without assistive devices. 9-Wydycvbakl-ozwzfcf completes the activity by him/herself with no assistance from a helper. 5-Set-up or Clean-up Assistance-helper sets up or cleans up; patient completes activity. [place] assists only prior to or following the activity. 4-Supervision or Touching Assistance-helper provides verbal cues and/or touching/steadying and/or contact guard assistance as patient completes activity. Assistance may be provided throughout the activity or intermittently. 3-Partial/Moderate Assistance-helper does LESS THAN HALF the effort. [place] lifts, holds or supports trunk or limbs, but provides less than half the effort. 2-Substantial/Maximal Assistance-helper does MORE THAN HALF the effort. [place] lifts or holds trunk or limbs and provides more than half the effort. 7-Kqsnssiad-rpoiix does ALL the effort. Patient does none of the effort to complete the activity. Or, the assistance of 2 or more helpers is required for the patient to complete the activity. If activity was not attempted, code reason: 7-Patient Refused. 9-Not Applicable-not attempted and the patient did not perform the activity before the current illness, exacerbation or injury. 10-Not Attempted due to Environmental Limitations-(lack of equipment, weather restraints, etc.). 88-Not Attempted due to Medical Conditions or Safety Concerns. Bed Mobility: 6 Transfers (B,C,W/C): 6 Gait: 6 Indoor Mobility (Ambulation): Independent Prior Devices Use: Walker Pt used FWW for short distances and around house, or a cane when he was feeling good. Pt has a WC he uses outside of the house or for long distances. PT Evaluation-Current Subjective Pt in bed pre-tx with Pharmacy med [employer] tech in room. Pt agrees to PT this morning. Pt reports 10/10 pain in his R foot that he normally has. Pt in recliner post-tx with feet elevated and OT in the room at this time. Pt with moe light, room phone, and tray table in reach with all needs met at this time. Objective Patient Orientation: Person, Place, Time, Situation Problem Solving: Fair Attachments: Oxygen (3L), IV ROM/Strength Strength Lower Extremities B/L hip flexions 4+/5 B/L knee flexion and extension 4/5 Integumentary/Posture Integumentary see nursing notes. Bowel Incontinence: Yes Bladder Incontinence: Yes Sensory Vision: Functional Hearing: Functional Sensation Right Upper Extremit: Intact Sensation Left Upper Extremity: Intact Sensation Right Lower Extremit: Impaired (Pt reports no feeling with touches to R foot below ankle) Sensation Left Lower Extremity: Impaired (Pt would not respond to touches over dorsal or plantar surface of L foot) Transfers Lying to Sitting/Side of Bed(Q: 4 (SBA) Sit to Stand (QC): 3 (Barry) Gait Does the Patient Walk?: Yes Mode of Locomotion: Walk Anticipated Mode of Locomotion: Both Walk 10 feet (QC): 4 (CGA) Walk 50 ft with 2 Turns(QC): 4 (CGA) Distance: 100' Gait Assistive Device: FWW Comments/Gait Description pt walks with heel first contact on the R foot. Pt demonstrates dorsiflexion in the R foot and pronates as he comes to a foot flat but has no toe off on the R foot. Pt ambulates with slow but steady step through gait pattern with decreased stride length. Wheelchair Training Does the Pt Use a Wheelchair?: No Balance Sitting Static: Good Sitting Dynamic: Good Standing Static: Fair Standing Dynamic: Fair Treatment Pt performed bed mobility, transfer training, skilled ambulation training, and education this date. Assessment/Needs Pt is weak in B/L LE and get SOB quickly. Pt ambulation is limited in distance by pain in his L knee and SOB. Rehab Potential: Fair PT [facility] Goals Network Associate Goals PT Mcfp Goals Time Frame: Mar 03, 2019 Sit to Lying (QC): 6 Lying-Sitting on Side/Bed(QC): 6 Sit to Stand (QC): 4 (SBA) Chair/Yrq-vd-Srszb Xfer(QC): 4 (SBA) Does the Patient Walk: Yes Distance: 200' Walk 10 feet (QC): 6 Walk 50ft with 2 Turns (QC): 4 (SBA) Walk 150 ft (QC): 4 (SBA) Gait Assistive Device: FWW PT Plan Problem List Problem List: Activity Tolerance, Functional Strength, Safety, Balance, Gait, Transfer, Bed Mobility Treatment/Plan Treatment Plan: Continue Plan of Care Treatment Plan: Bed Mobility, Education, Functional Activity Herrera, Functional Strength, Gait, Safety, Therapeutic Exercise, Transfers Treatment Duration: Mar 03, 2019 Frequency: 6 times per week Estimated Hrs Per Day: .25 hour per day Patient and/or Family Agrees t: Yes Safety Risks/Education Patient Education: Gait Training, Transfer Techniques, Correct Positioning, Safety Issues Teaching Recipient: Patient Teaching Methods: Demonstration, Discussion Response to Teaching: Return Demonstration, Reinforcement Needed Discharge Recommendations Plan Pt will perform skilled ambulation training, bed mobility training, transfer training, strength training, and education. Therapy Discharge Recommendati: Scheduled Assistance, Assisted Living, Homemaker Support Equpiment Recommendations-D/C: Front Wheeled Walker, Oxygen Time/GCodes Time In: 1135 Time Out: 1150 Total Billed Treatment Time: 15 Total Billed Treatment 1 visit EVMaritza ZORA TOWNSEND PT Feb 24, 2019 11:57 POS
--- NOTE | 2019-02-24 12:15 | Occupational Therapy Eval ---
OT Evaluation-General/PLF Medical Diagnosis Admission Date Feb 23, 2019 at 11:58 Medical Diagnosis: Pneumonia, Lung CA, debility Onset Date: Feb 23, 2019 Therapy Diagnosis Therapy Diagnosis: impaired ADLs and functional mobility Height/Weight Height (Feet): 5 Height (Inches): 11.00 Weight (Pounds): 165 Weight (Ounces): 8.0 Precautions Precautions/Isolations: Fall Prevention, Standard Precautions Referral Physician: Nate Referral Reason: Activity Tolerance, Self Care, Evaluation/Treatment, Strengthening/ROM Medical History Pertinent Medical History: Arthritis, Neuropathy Current History Per H&P: "This is an 78-year-old white male known to me from prior hospital stays including an inpatient rehab stay after pneumonia who has a history of lung cancer on chemotherapy and a recent issue with blood in the stool status post endoscopy revealing no mass who presented to [place] [facility] with complaints of shortness of breath and fever and not feeling well and his family brought him to the ER patient was found to have a pneumonia with elevated white count normal lactic acid but very debilitated in need of inpatient hospital stay with supportive care and IV antibiotics. He does continue using oxygen at home and has not had any significant hospital stays since I last admitted him to [facility]. I have restarted his oxycodone gabapentin and fentanyl patch which he is already asking about." Social History Home: Multilevel (pt does not have to go up to second level) Current Living Status: Alone Entry Into Home: Ramp ADL-Prior Level of Function SCALE: Activities may be completed with or without assistive devices. 3-Boztceraqp-cgnfixc completes the activity by him/herself with no assistance from a helper. 5-Set-up or Clean-up Assistance-helper sets up or cleans up; patient completes activity. [place] assists only prior to or following the activity. 4-Supervision or Touching Assistance-helper provides verbal cues and/or touching/steadying and/or contact guard assistance as patient completes activity. Assistance may be provided throughout the activity or intermittently. 3-Partial/Moderate Assistance-helper does LESS THAN HALF the effort. [place] lifts, holds or supports trunk or limbs, but provides less than half the effort. 2-Substantial/Maximal Assistance-helper does MORE THAN HALF the effort. [place] lifts or holds trunk or limbs and provides more than half the effort. 8-Ofveqigiv-qfbpkd does ALL the effort. Patient does none of the effort to complete the activity. Or, the assistance of 2 or more helpers is required for the patient to complete the activity. If activity was not attempted, code reason: 7-Patient Refused. 9-Not Applicable-not attempted and the patient did not perform the activity before the current illness, exacerbation or injury. 10-Not Attempted due to Environmental Limitations-(lack of equipment, weather restraints, etc.). 88-Not Attempted due to Medical Conditions or Safety Concerns. ADL PLOF Comments Pt reports he lives at home alone prior to hospitalization, he denies requiring assistance for ADLs including bathing, dressing, and cooking. Pt reports he is able to don/doff socks/shoes without assistance when he is not sick. Self Care: Independent Functional Cognition: Independent DME/Equipment: Bath Bench, Shower (walk in) DME/Equipment Comments walker OT Current Status Subjective Pt upright in recliner, just finishing PT tx. Pt agreeable to OT session stating he needed to wash his face. Pt did not report any pain during session. Mental Status/Objective Patient Orientation: Person, Place, Time, Situation Attachments: IV Current Glasses/Contacts: Yes (reading) Hearing Aids: Yes (broke, does not have any at this time to wear) Dentures/Partials: Yes Upper Extremity ROM WFL, BUE shoulder flexion to approx 160 degrees, pt able to reach back of head during hair brushing. Upper Extremity Coordination WFL Upper Extremity Sensation pt reported no changes to sensation, denies tingling/numbness Upper Extremity Strength 3+/5 MMT BUE ADL-Treatment On/Off Footwear (QC): 1 (Pt reports he is unable to don/doff socks due to being sick, requiring assistance earlier today. Pt pleasantly declined attempt this visit.) Other Treatments Pt upright in recliner, pt able to brush hair once handed a comb, and he was able to wash his face using a washcloth with set up. Pt then completed shaving using an electric razor. Pt pleasantly declined using the bathroom or performing a transfer secondary to just finishing with PT. Post OT session, pt upright in recliner, call light in reach and all needs met. Education OT Patient Education: Correct positioning, Modified ADL techniques, Progress toward Goal/Update tx plan, Purpose of tx/functional activities Teaching Recipient: Patient Teaching Methods: Discussion Response to Teaching: Verbalize Understanding OT Short Term Goals Short Term Goals 1=Demonstrate adherence to instructed precautions during ADL tasks. 2=Patient will verbalize/demonstrate understanding of assistive devices/modifications for ADL. 3=Patient will improve strength/tolerance for activity to enable patient to perform ADL's. OT Operating Cost Clerk Goals Operating Cost Clerk Goals Time Frame: Mar 07, 2019 Eating (QC): 6 Oral Hygiene (QC): 5 Shower/Bathe Self (QC): 4 Upper Body Dressing (QC): 6 Lower Body Dressing (QC): 4 On/Off Footwear (QC): 4 Toileting Hygiene (QC): 4 Toilet/Commode Transfer (QC): 4 Additional Goals: 1-Demonstrate ADL Tasks, 2-Verbalize Understanding, 3- ImproveStrength/Herrera 1=Demonstrate adherence to instructed precautions during ADL tasks. 2=Patient will verbalize/demonstrate understanding of assistive devices/rachelle fications for ADL. 3=Patient will improve strength/tolerance for activity to enable patient to perform ADL's. OT Education/Plan Problem List/Assessment Assessment: Decreased Activ Tolerance, Decreased UE Strength, Impaired I ADL's, Impaired Self-Care Skills Pt presents with decreased UE strength and decreased activity tolerance impactin g his ability to be more independent in ADLs and functional activities. Discharge Recommendations Plan/Recommendations: Continue POC Therapy Discharge Recommendati: Scheduled Assistance Treatment Plan/Plan of Care Treatment,Training & Education: Yes Patient would benefit from OT for education, treatment and training to promote independence in ADL's, mobility, safety and/or upper extremity function for ADL's. Treatment Duration: Mar 07, 2019 Frequency: 5 times per week Estimated Hrs Per Day: .25 hour per day Agreement: Yes Rehab Potential: Fair Time/GCodes Start Time: 11:50 Stop Time: 12:03 Total Time Billed (hr/min): 13 Billed Treatment Time 1, KYLAH [id number] Cyr OT Feb 24, 2019 12:15 POS
[2019-02-24 12:59] VITALS: BP 123/58
[2019-02-24] MEDS: ENOXAPARIN 40 MG/0.4 ML (LOVENOX) SYR SC SCH (13:50)
[2019-02-24 15:52] VITALS: BP 120/62
[2019-02-24] MEDS ORDERED: ONDANSETRON 4 MG (ZOFRAN) ORAL DISSOLVE TAB PO PRN (20:15)
[2019-02-24] MEDS ORDERED: NON-FORMULARY MEDICATION 1 EA EA (Carboxymethylcellulose Sodium (Refresh Tears) 1 DROP) OD SCH (20:15)
[2019-02-24] MEDS ORDERED: NYSTATIN CREAM (MYCOSTATIN) 30 GM TUBE TP PRN (20:15)
[2019-02-24] MEDS ORDERED: TRIAMCINOLONE 0.025% CR (KENALOG) 15 GM TUBE TOP PRN (20:15)
[2019-02-24] MEDS: ARTIFICAL TEARS 0.4 ML UNIT DOSE (REFRESH PLUS) OD SCH ×2 (20:46→22:44)
[2019-02-25 00:10] VITALS: BP 124/69
[2019-02-25] MEDS: ARTIFICAL TEARS 0.4 ML UNIT DOSE (REFRESH PLUS) OD SCH ×6 (00:53→10:51)
[2019-02-25] MEDS: RT-ALBUTEROL/IPRATROPIUM 3 ML (DUONEB) VIAL INH SCH ×3 (02:10→10:36)
[2019-02-25] MEDS: PIPERACILLIN/TAZO 4.5 GM/NS 100 ML IV SCH ×4 (02:54→10:05)
[2019-02-25] MEDS: NS IV 1000 ML 1,000 ML IV SCH ×2 (04:09→04:10)
[2019-02-25 06:17] LABS: BASOPHILS % (AUTO) 0 % (0-10); EOSINOPHILS # (AUTO) 0.6 10^3/uL (0.0-0.3); EOSINOPHILS % (AUTO) 9 % (0-10); HEMATOCRIT 32 % (40-54); HEMOGLOBIN 10.2 G/DL (13.3-17.7); LYMPHOCYTES # (AUTO) 1.3 X 10^3 (1.0-4.0); LYMPHOCYTES % (AUTO) 19 % (12-44); MEAN CORPUSCULAR HEMOGLOBIN 28 PG (25-34); MEAN CORPUSCULAR HGB CONC 32 G/DL (32-36); MEAN CORPUSCULAR VOLUME 89 FL (80-99); MEAN PLATELET VOLUME 10.7 FL (7.4-10.4); MONOCYTES # (AUTO) 0.6 X 10^3 (0.0-1.0); MONOCYTES % (AUTO) 9 % (0-12); NEUTROPHILS # (AUTO) 4.2 X 10^3 (1.8-7.8); NEUTROPHILS % (AUTO) 63 % (42-75); PLATELET COUNT 213 10^3/uL (130-400); RED CELL DISTRIBUTION WIDTH 14.6 % (10.0-14.5); WHITE BLOOD COUNT 6.7 10^3/uL (4.3-11.0)
[2019-02-25 06:37] LABS: ALANINE AMINOTRANSFERASE 28 U/L (0-55); ALBUMIN 3.2 GM/DL (3.2-4.5); ALKALINE PHOSPHATASE 100 U/L (40-136); BILIRUBIN,TOTAL 0.5 MG/DL (0.1-1.0); BUN/CREATININE RATIO 8; CALCIUM 8.9 MG/DL (8.5-10.1); CARBON DIOXIDE 28 MMOL/L (21-32); CHLORIDE 103 MMOL/L (98-107); CREATININE SERUM 0.74 MG/DL (0.60-1.30); GFR ESTIMATED > 60; GLUCOSE 96 MG/DL (70-105); POTASSIUM 3.6 MMOL/L (3.6-5.0); SODIUM 140 MMOL/L (135-145); TOTAL PROTEIN 6.4 GM/DL (6.4-8.2)
[2019-02-25] MEDS ORDERED: PANTOPRAZOLE 20 MG TABLET (PROTONIX) PO SCH (07:00)
[2019-02-25] MEDS ORDERED: MULTIVIT W/MINERALS TAB (THERAGRAN M) PO SCH (07:00)
[2019-02-25] MEDS ORDERED: KCL 20 MEQ TAB (K-DUR) PO SCH (07:00)
[2019-02-25 08:00] VITALS: BP 128/63
[2019-02-25] MEDS ORDERED: ASCORBIC ACID (VIT C) 500 MG TABLET PO SCH (08:00)
[2019-02-25] MEDS: GABAPENTIN 300 MG (NEURONTIN) CAP PO SCH (08:23)
[2019-02-25] MEDS ORDERED: TAMSULOSIN 0.4 MG (FLOMAX) CAP PO SCH (09:00)
[2019-02-25] MEDS ORDERED: NON-FORMULARY MEDICATION 1 EA EA (Potassium Chloride 20 MEQ) PO SCH (09:00)
[2019-02-25] MEDS ORDERED: NON-FORMULARY MEDICATION 1 EA EA (Umeclidinium Brm/Vilanterol Tr (Anoro Ellipta 62.5-25 Mc IH SCH (09:00)
[2019-02-25] MEDS ORDERED: amLODIPine 10 MG (NORVASC) TAB PO SCH (09:00)
[2019-02-25] MEDS ORDERED: OMEPRAZOLE 20 MG (PriLOSEC) CAP NON-FORMULARY PO SCH (09:00)
[2019-02-25] MEDS ORDERED: LORATADINE (CLARITIN) 10 MG TAB PO SCH (09:00)
[2019-02-25] MEDS ORDERED: NON-FORMULARY MEDICATION 1 EA EA (Amlodipine Besylate 10 MG) PO SCH (09:00)
[2019-02-25] MEDS ORDERED: PARoxetine 20 MG (PAXIL) TAB PO SCH (09:00)
[2019-02-25] MEDS ORDERED: FLU QUADRIvalent (5+ YOA) 2019-2020 (AFLURIA) 0.5 ML IM ONE (09:56)
[2019-02-25] MEDS: ENOXAPARIN 40 MG/0.4 ML (LOVENOX) SYR SC SCH (10:05)
--- NOTE | 2019-02-25 10:25 | NUR ---
IRF Evaluation Order received to evaluate patient for the ARU. Chart review complete and findings discussed with Dr. Sullivan - patient accepted. Anticipate admission, 02/25/19. Thank you for this referral.
--- NOTE | 2019-02-25 11:10 | NUR ---
Report given to SANAM Thompson. Pt transferred by ARU staff to room 228.
[2019-02-25 11:15] VITALS: BP 128/63
--- NOTE | 2019-02-25 11:34 | Discharge Summary ---
ALLIE WHITE,MED STUDENT 02/25/19 1134: Diagnosis/Chief Complaint Date of Admission Feb 23, 2019 at 11:58 Date of Discharge Feb 25, 2019 at 11:15 Discharge Date: Feb 25, 2019 Admission Diagnosis Assessment: Pneumonia Chronic Debility Lung cancer hx on chemotherapy HTN Neuropathy TBI hx Depression GERD Chronic pain Chronic incontinence Plan: Pneumonia protocol Incontinence [facility] meds (2) RESPIRATORY FAILURE, UNSP, UNSP W HYPOXIA OR HYPERCAPNIA (3) Lung cancer (4) Chronic pain (5) Essential (primary) hypertension (6) TBI (traumatic brain injury) hx (7) Anemia (8) Elevated brain natriuretic peptide (BNP) level (11) H/O prostatectomy (12) Urinary incontinence Primary Care Reggie,David DENT Discharge Diagnosis (1) Left upper lobe pneumonia Status: Acute (2) Generalized weakness Status: Acute Discharge Summary Discharge Physical Exam Allergies: Coded Allergies: baclofen (Verified Allergy, Unknown, 11/24/18) metoclopramide (Verified Allergy, Unknown, 11/24/18) Vitals & I&Os Vital Signs Date Time Temp Pulse Resp B/P (MAP) Pulse Ox O2 Delivery O2 Flow Rate FiO2 02/25/19 10:36 95 Nasal Cannula 3.00 02/25/19 08:00 36.9 75 16 128/63 (84) 02/24/19 11:10 28 General Appearance: Chronically ill, Thin HEENT: Moist Mucous Membranes; No Pale Conjunctivae (L), No Pale Conjunctivae (R) Respiratory: Chest Non Tender, Lungs Clear, Normal Breath Sounds, No Accessory Muscle Use, No Respiratory Distress Cardiovascular: Regular Rate, Rhythm, No Edema Skin: Warm/Dry, Pallor Neurologic/Psychiatric: Alert, Oriented x3 Hospital Course Pt presented to emergency department due to productive cough, increase home oxygen use, nausea and fatigue. Patient was admitted to Dr. Olivarez for IV a ntibiotics for suspected recurrent pneumonia. Following two days of IV antibiotic administration, patient endorses resolution of cough, nausea and fatigue. Pt agreed to continue hospital course in rehabilitation unit until he was feeling well enough to go home. Labs (last 24 hrs) Laboratory Tests 02/25/19 05:39: White Blood Count 6.7, Red Blood Count 3.60L, Hemoglobin 10.2L, Hematocrit 32L, Mean Corpuscular Volume 89, Mean Corpuscular Hemoglobin 28, Mean Corpuscular Hemoglobin Concent 32, Red Cell Distribution Width 14.6H, Platelet Count 213, Mean Platelet Volume 10.7H, Neutrophils (%) (Auto) 63, Lymphocytes (%) (Auto) 19, Monocytes (%) (Auto) 9, Eosinophils (%) (Auto) 9, Basophils (%) (Auto) 0, Neutrophils # (Auto) 4.2, Lymphocytes # (Auto) 1.3, Monocytes # (Auto) 0.6, Eosinophils # (Auto) 0.6H, Basophils # (Auto) 0.0, Sodium Level 140, Potassium Level 3.6, Chloride Level 103, Carbon Dioxide Level 28, Anion Gap 9, Blood Urea Nitrogen 6L, Creatinine 0.74, Estimat Glomerular Filtration Rate > 60, BUN/Creatinine Ratio 8, Glucose Level 96, Calcium Level 8.9, Corrected Calcium 9.5, Total Bilirubin 0.5, Aspartate Amino Transf (AST/SGOT) 28, Alanine Aminotransferase (ALT/SGPT) 28, Alkaline Phosphatase 100, Total Protein 6.4, A lbumin 3.2 Microbiology 02/23/19 Blood Culture - Preliminary, Resulted No growth 02/23/19 Influenza Types A,B Antigen (LEA) - Final, Complete Patient resulted labs reviewed. Pending Labs Laboratory Tests 02/25/19 05:39: White Blood Count 6.7, Red Blood Count 3.60, Hemoglobin 10.2, Hematocrit 32, Mean Corpuscular Volume 89, Mean Corpuscular Hemoglobin 28, Mean Corpuscular Hemoglobin Concent 32, Red Cell Distribution Width 14.6, Platelet Count 213, Mean Platelet Volume 10.7, Neutrophils (%) (Auto) 63, Lymphocytes (%) (Auto) 19, Monocytes (%) (Auto) 9, Eosinophils (%) (Auto) 9, Basophils (%) (Auto) 0, Neutrophils # (Auto) 4.2, Lymphocytes # (Auto) 1.3, Monocytes # (Auto) 0.6, Eosinophils # (Auto) 0.6, Basophils # (Auto) 0.0, Sodium Level 140, Potassium Level 3.6, Chloride Level 103, Carbon Dioxide Level 28, Anion Gap 9, Blood Urea Nitrogen 6, Creatinine 0.74, Estimat Glomerular Filtration Rate > 60, BUN/Creatinine Ratio 8, Glucose Level 96, Calcium Level 8.9, Corrected Calcium 9.5, Total Bilirubin 0.5, Aspartate Amino Transf (AST/SGOT) 28, Alanine Aminotransferase (ALT/SGPT) 28, Alkaline Phosphatase 100, Total Protein 6.4, Albumin 3.2 Discharge Home Medications: Active Scripts Active Reported Gilotrif (Afatinib Dimaleate) 30 Mg Tablet 30 Mg PO DAILY TAKES 1ST THING IN THE MORNING Triamcinolone Acetonide 0.025% (Triamcinolone Acet) 15 Gm Cr 1 Ea TOP UD PRN Anoro Ellipta 62.5-25 Mcg INH (Umeclidinium Brm/Vilanterol Tr) 1 Each Blst.w.dev 1 Puff IH DAILY Refresh Tears (Carboxymethylcellulose Sodium) 15 Ml Drops 1 Drop OD Q2H Systane Nighttime Eye Oint (Mineral Oil/Petrolatum,White) 3.5 Gm Oint...g. OD H S Fentanyl Patch 100 MCG (Fentanyl) 1 Each Patch.td72 100 Mcg TD Q72H LAST TIME PATCH WAS APPLIED WAS 02-23-2019 BEFORE HOSPITALIZATION Nystatin 15 Gm Cream..g. TOP BID PRN Omeprazole 20 Mg Capsule.dr 20 Mg PO DAILY Flomax (Tamsulosin HCl) 0.4 Mg Cap 0.4 Mg PO DAILY Oxycodone HCl 5 Mg Tablet 5 Mg PO Q6H PRN Ondansetron Odt (Ondansetron) 4 Mg Tab.rapdis 4 Mg PO Q8H PRN Multi-Vitamin Daily (Multivitamin) 1 Each Tablet 1 Tab PO DAILY Ascorbic Acid 500 Mg Tablet 500 Mg PO DAILY Loratadine 10 Mg Tablet 10 Mg PO DAILY Paroxetine HCl 20 Mg Tablet 20 Mg PO DAILY Amlodipine Besylate 10 Mg Tablet 10 Mg PO DAILY Gabapentin 300 Mg Capsule 600 Mg PO TID TAKES 2 (300MG) CAPSULES Potassium Chloride 10 Meq Tab.er.prt 20 Meq PO DAILY TAKES 2 (10MEQ) TABLETS Instructions to patient/family Please see electronic discharge instructions given to patient. Clinical Quality Measures DVT/VTE Risk/Contraindication: Risk Factor Score Per Nursin RFS Level Per Nursing on Admit: 3=High AMANDA OLIVAREZ DO 02/25/192021: Diagnosis/Chief Complaint Discharge Diagnosis (1) Pneumonia Status: Acute (2) Lung cancer Status: Chronic (3) Debility Status: Chronic (4) Chronic pain Status: Chronic (5) Myopathy (6) Anemia (7) TBI (traumatic brain injury) Status: Chronic Discharge Summary Discharge Physical Exam Allergies: Coded Allergies: baclofen (Verified Allergy, Unknown, 11/24/18) metoclopramide (Verified Allergy, Unknown, 11/24/18) General Appearance: No Apparent Distress, WD/WN Respiratory: No Accessory Muscle Use, No Respiratory Distress, Crackles, Decreased Breath Sounds Cardiovascular: Regular Rate, Rhythm Neurologic/Psychiatric: Alert, Oriented x3, No Motor/Sensory Deficits, Normal Mood/Affect Hospital Course Was the Problem List Reviewed?: Yes Hospital course: Pt had an uncomplicated hospital course when he was admitted for pneumonia from the [facility]. Does have a history of lung cancer, on chemotherapy and continues to have frequent hospital stays due to his weakened state. He was placed on Zosyn, had improvement in his overall st atus but severe weakness from the chemotherapy required inpatient rehab with PT and OT and speech. Discussion & Recommendations Discharge Planning: <30 minutes discharge planning Supervisory-Addendum Brief Verification & Attestation Participated in pt care: history, MDM, physical Personally performed: exam, history, MDM, supervision of care Care discussed with: Medical Student Procedures: n/a Results interpretation: Verified all documentation Verification and Attestation of Medical Student E/M Service A medical student performed and documented this service in my presence. I reviewed and verified all information documented by the medical student and made modifications to such information, when appropriate. I personally performed the physical exam and medical decision making. Amanda Olivarez, Feb 25, 2019,20:22 Problem Qualifiers (1) Left upper lobe pneumonia: Pneumonia type: due to unspecified organism Qualified Codes: J18.1 - Lobar pneumonia, unspecified organism ALLIE WHITE,MED STUDENT Feb 25, 2019 11:34 AMANDA NG DO Feb 25, 2019 20:22 POS
[2019-02-26] MEDS ORDERED: fentaNYL PATCH 100 MCG (DURAGESIC) TD SCH (09:00)
[2019-02-26] MEDS ORDERED: PATCH REMOVAL TP SCH (09:00)
== END 2019-02-25 11:15 | DRG 193 ==
LOC: EDUNIT# 09:55 → ER FS 09:56 → 4TH 11:58
PROVIDERS: ADMIT Internal Medicine; ATTEND Internal Medicine
DX: J18.9 Pneumonia, unspecified organism (principal); J96.90 Respiratory failure, unspecified, unspecified whether with hypoxia or hypercapnia; J44.0 Chronic obstructive pulmonary disease with (acute) lower respiratory infection; I10 Essential (primary) hypertension; M54.9 Dorsalgia, unspecified; G89.29 Other chronic pain; G62.9 Polyneuropathy, unspecified; K21.9 Gastro-esophageal reflux disease without esophagitis; R32 Unspecified urinary incontinence; F32.9 Major depressive disorder, single episode, unspecified; D64.9 Anemia, unspecified; Z87.891 Personal history of nicotine dependence; Z87.01 Personal history of pneumonia (recurrent); Z85.118 Personal history of other malignant neoplasm of bronchus and lung; Z92.21 Personal history of antineoplastic chemotherapy; Z87.820 Personal history of traumatic brain injury; Z99.81 Dependence on supplemental oxygen; Z96.652 Presence of left artificial knee joint
CPT/HCPCS: 36415; 71045; 71046; 80053; 83605; 83735; 85007; 85025; 85027; 87040; 87804; 93005; 93041; 94640; 94664; 94760

== ENCOUNTER 2019-02-25 09:55 | Inpatient (IN) | payer MEDICARE, OTHER ==
[~2019-02-25] VITALS: Ht 180.3 cm; Wt 70.7 kg
[~2019-02-25 09:55] MED LIST changes: +TR025C15 TOP
--- NOTE | 2019-02-25 11:15 | NUR ---
Maryse Jones admitted to room 228-1, with an admitting diagnosis of Chemotherapy Neuropathy, on 02/25/19 from Medical Surgical Floor via wheelchair, accompanied by Staff. NOY KAISER JR introduced to surroundings, call light, bed controls, phone, TV, temperature control, lights, meal times, smoking policy, visitor policy, side rail policy, bathrooms and showers. Patient Rights given to patient in the handbook.NOY KAISER JR verbalizes understanding that [facility] is not responsible for the loss or damage to any personal effects or valuables that are kept in the patients possession during their hospitalization. Patient requests that wallet be put in locked marine painter room. The following Patient Care Plans were discussed with the Patient: Discharge Planning, Impaired Mobility, Potential for Injury, COPD. NOY KAISER JR verbalizes understanding of Interdisciplinary Patient Education.
[2019-02-25 11:45] VITALS: BP 147/69
--- NOTE | 2019-02-25 11:50 | NUR ---
REVIEWED MEDICATIONS THEY WERE REPORTED UPON ADMISSION TO 4TH FLOOR. NO CHANGES WERE MADE WHEN THE PATIENT DISCHARGED TO REHAB.
[2019-02-25] MEDS ORDERED: LOPERAMIDE 2 MG (IMODIUM) TABLET PO PRN (12:00)
[2019-02-25] MEDS ORDERED: diphenhydrAMINE 25 MG TAB (BENADRYL) PO PRN (12:00)
[2019-02-25] MEDS ORDERED: NYSTATIN CREAM (MYCOSTATIN) 30 GM TUBE TP PRN (12:00)
[2019-02-25] MEDS ORDERED: MELATONIN 3 MG TABLET PO PRN (12:00)
[2019-02-25] MEDS ORDERED: DOCUSATE SODIUM 100 MG (COLACE) CAP PO PRN (12:00)
[2019-02-25] MEDS ORDERED: ACETAMINOPHEN 325 MG TABLET PO PRN (12:00)
[2019-02-25] MEDS ORDERED: CALCIUM CARBONATE 500 MG (TUMS) TAB.CHEW PO PRN (12:00)
[2019-02-25] MEDS ORDERED: ONDANSETRON 4 MG/2 ML (SDV) Z0FRAN IV PRN (12:00)
[2019-02-25] MEDS: ARTIFICAL TEARS 0.4 ML UNIT DOSE (REFRESH PLUS) OD SCH ×7 (12:00→23:27)
--- NOTE | 2019-02-25 12:00 | Physical Therapy Evaluation ---
PT Evaluation-General Medical Diagnosis Admission Date Feb 25, 2019 at 11:15 Medical Diagnosis: chemotherapy neuropathy Onset Date: Feb 25, 2019 Therapy Diagnosis Therapy Diagnosis: abnormal gait; weakness Height/Weight Height (Feet): 5 Height (Inches): 11.00 Weight (Pounds): 165 Weight (Ounces): 8.0 Precautions Precautions/Isolations: Standard Precautions Weight Bear Status Right Lower Extremity: Right Weight Bearing/Tolerated Left Lower Extremity: Left Weight Bearing/Tolerated Referral Physician: Nate Reason for Referral: Evaluation/Treatment Medical History Pertinent Medical History: Arthritis, COPD, GERD, HTN, Neuropathy Additional Medical History lung CA, neuropathy, respiratory failure Current History Pt admitted to acute with complaints of SOA and found to have pneumonia; pt admitted to ARU for continued medical management and skilled therapy services for chemotherapy neuropathy with plan to discharge to a community setting. Reviewed History: Yes Social History Home: Multilevel (reports he can live on the first floor) Current Living Status: Alone Entry Into Home: Ramp Pt reports he does not need to use the 2nd level of his home; has a ramp to enter. Lives alone; has a girlfriend, but she is not there every day. Prior Prior Level of Function SCALE: Activities may be completed with or without assistive devices. 5-Gixfkrtjtw-ctueeut completes the activity by him/herself with no assistance from a helper. 5-Set-up or Clean-up Assistance-helper sets up or cleans up; patient completes activity. [place] assists only prior to or following the activity. 4-Supervision or Touching Assistance-helper provides verbal cues and/or touching/steadying and/or contact guard assistance as patient completes activity. Assistance may be provided throughout the activity or intermittently. 3-Partial/Moderate Assistance-helper does LESS THAN HALF the effort. [place] lifts, holds or supports trunk or limbs, but provides less than half the effort. 2-Substantial/Maximal Assistance-helper does MORE THAN HALF the effort. [place] lifts or holds trunk or limbs and provides more than half the effort. 5-Hiuejzuno-erveix does ALL the effort. Patient does none of the effort to complete the activity. Or, the assistance of 2 or more helpers is required for the patient to complete the activity. If activity was not attempted, code reason: 7-Patient Refused. 9-Not Applicable-not attempted and the patient did not perform the activity before the current illness, exacerbation or injury. 10-Not Attempted due to Environmental Limitations-(lack of equipment, weather restraints, etc.). 88-Not Attempted due to Medical Conditions or Safety Concerns. 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 PT Evaluation-Current Subjective Pt agreeable to PT. Reports he is very unsteady on his feet right now. Reports his daughter would like for him to live with her but he reports, "I'm not ready to give up my home just yet." Pain Numeric Pain Scale: 7 Location: Right Location Body Site: Foot Pain Description: Ache Comment: "neuropathy" like pain Pt/Family Goals His goal is to return home alone as before. Reports he wants to continue living as he was before. Objective Patient Orientation: Person, Place, Time, Situation Problem Solving: Good Attachments: Oxygen (in place during treatment and after. ), IV ROM/Strength ROM Lower Extremities WFL Strength Lower Extremities strength is grossly 3/5 throughout Integumentary/Posture Integumentary appears intact but refer to nursing notes for full assessment Bowel Incontinence: Yes Bladder Incontinence: Yes Posture slightly rounded shoulders and forward head. Neuromuscular (Tone, Coordination, Reflexes) tone is normal; coordination B LE impaired with decreased kinesthetic awareness; uncoordinated movement of LE with transfers and gait which significantly iimpairs functional gait safety and increases fall risk; decreased sensation to sense surface changes. Sensory Vision: Functional Hearing: Functional Hand Dominance: Right Sensation Right Lower Extremit: Impaired Sensation Left Lower Extremity: Impaired Transfers Roll Left to Right (QC): 4 Sit to Lying (QC): 4 Lying to Sitting/Side of Bed(Q: 4 Sit to Stand (QC): 3 (min aassist to steady for safety. ) Chair/Gok-zd-Msyqx Xfer(QC): 3 Car Transfer (QC): 3 (asssist with standing to turn and to sit for safety and steadying assist. ) Gait Anticipated Mode of Locomotion: Walk Distance: 6=133-20 ft Walk 10 feet (QC): 3 Walk 50 ft with 2 Turns(QC): 3 Walk 150 ft (QC): 88 Walking 10ft/uneven surface-QC: 3 Gait Assistive Device: FWW Comments/Gait Description min assist with gait due to balance disturbance and need for min assist to steady him; difficulty on the uneven surface due to neuropathy and decreased sensory input. Wheelchair Training Does the Pt Use a Wheelchair?: No Wheel 50 ft with 2 turns (QC): 9 Wheel 150 ft (QC): 9 Stairs 1 Step (curb) (QC): 3 (min assist for balance and lifting assist at the gait belt) 4 Steps (QC): 88 12 Steps (QC): 88 Balance Sitting Static: Good Sitting Dynamic: Good Standing Static: Fair Standing Dynamic: Poor Picking up an Object (QC): 88 Treatment Functional bed mobility and sit to stand transfer training with cues for safety and sequencing; gait short distances with FWW with min assist with cues for safety awareness. Assessment/Needs Post acute hospital stay due to pneumonia and chemotherapy neuropathy. He presents with decreased functional strength and balance as well as decreased neuromotor control B LE's that impairs functional safety with all upright mobility; increasing fall risk and requiring assist with all mobility for safety. He will benefit from skilled PT to address these deficits with the goal to return home alone (per his desire.). Rehab Potential: Good (pt is motivated and compliant) PT Service Tester Goals Longterm Goals PT Service Tester Goals Time Frame: Mar 20, 2019 Sit to Lying (QC): 6 Lying-Sitting on Side/Bed(QC): 6 Sit to Stand (QC): 6 Roll Left to Right (QC): 6 Chair/Eqy-va-Vqdfa Xfer(QC): 6 Car Transfer (QC): 6 Walk 10 feet (QC): 6 Walk 10ft-Uneven Surface(QC): 6 Walk 50ft with 2 Turns (QC): 6 Walk 150 ft (QC): 6 Gait Assistive Device: FWW Wheel 50 feet with 2 turns (QC: 9 1 Step (curb) (QC): 4 4 Steps (QC): 9 12 Steps (QC): 9 Picking up an Object (QC): 9 PT Plan Problem List Problem List: Activity Tolerance, Functional Strength, Safety, Balance, Gait, Transfer, Bed Mobility Treatment/Plan Treatment Plan: Continue Plan of Care Treatment Plan: Bed Mobility, Education, Functional Activity Herrera, Functional Strength, Group Therapy, Gait, Safety, Therapeutic Exercise, Transfers Frequency: Modified Program (IRF) (04/11) Estimated Hrs Per Day: 1.5 hours per day Patient and/or Family Agrees t: Yes Safety Risks/Education Patient Education: Transfer Techniques, Safety Issues Teaching Recipient: Patient Teaching Methods: Demonstration, Discussion Response to Teaching: Reinforcement Needed Discharge Recommendations Therapy Discharge Recommendati: Post Acute PT Time/GCodes Time In: 1115 Time Out: 1155 Total Billed Treatment Time: 40 Total Billed Treatment visit EVM 15 FA 25 GERMAIN GUZMAN PT Feb 25, 2019 12:00 POS
--- NOTE | 2019-02-25 13:37 | ST Cognitive Linguistic Eval ---
Speech Evaluation-General Medical Diagnosis chemotherapy neuropathy Onset Date: Feb 25, 2019 Therapy Diagnosis Therapy Diagnosis: Cognitive-communication Precautions Precautions: Fall Precautions/Isolations: Fall Prevention, Standard Precautions Referral Referring Physician: Dr. Sullivan Medical History Pertinent Medical History: Arthritis, COPD, GERD, HTN, Neuropathy Reviewed History: Yes Social History Current Living Status: Alone Speech PLF-Current Status Prior Level of Function Patient states he lives alone where he is independent for his daily needs. Subjective Patient was pleasant and cooperative with his cognitive assessment. Language Eval: Auditory Comprehends Simple Yes/No Ques: Functional Indent/Objects Multiple [place]: Functional Ident/Pics in Multiple [place]: Functional Follows 1-Step Commands: Functional Follows Complex Directions: Mild Follows General Conversations: Functional Language Eval: Verbal Language Completes Spontaneous Greeting: Functional Produces Auto, Serial Info: Functional Imitates Simple Words/Phrases: Functional Word Finding: Mild Requests Basic Needs: Functional States Basic Personal Info: Functional Expresses Complex Ideas: Mild Objective Cognitive Domain Attention: WNL Memory: Mild Problem Solving: Mild Executive Functions: Mild Visuospatial Skills: WNL Composite Severity Rating: WNL Clock Drawing Severity Rating: WNL Objective Formal/Standardized Tests [facility] Status ([facility]) Results 24/30, within Mild Neurocognitive Disorder range of function Oral Motor/Speech Production Within Normal Limits Impression The patient is a pleasant 78 year old man who was admitted to the ARU for strengthening prior to returning home. The patient was given the SLUMS with a score of 24/30. This score falls within the MNCD range of function. Patient will receive skilled ST for cognitive function improvement in order to return home safely. Speech Patient Assess Expression of Ideas/Wants: Exhibits (3) Understanding Verbal Content: Usually Understands (3) Brief Interview-Mental Status: Yes Repetition of Three Words: Three (3) Temporal Orientation: Year: Correct (3) Temporal Orientation: Month: Accurate within 5 days(2) Temporal Orientation: Day: Correct (1) Recall : Wear to say "Sock": Yes,after cueing (1) Recall : Color: Yes, after cueing (1) Recall : Bed: Yes, no cue required (2) Memory/Recall Ability: Current season, That he or she is in a hsp/hsp unit Speech Short Term Goals Short Term Goals Short Term Goals 1) The patient will complete memory tasks related to his daily living skills at 90% or greater given 10% or less cues. 2) The patient will complete problem solving tasks related to his daily living skills at 90% or greater given 10% or less cues. 3) The patient will complete safety awareness tasks related to his daily living skills at 90% or greater given 10% or less cues. Speech Stonecutter Hand Goals Nursing Home Goals The patient will improve his cognitive-communication abilities in order to complete daily living tasks with minimal assist. Speech-Plan Patient/Family Goals Patient/Family Goals: Patient plans on returning home post rehab, however the place of discharge will be determined at a later date based on his progress. Treatment Plan Speech Therapy Treatment Plan: Continue Plan of Care Patient will receive skilled cognitive therapy with focus on safety and independence. Treatment Duration: Mar 12, 2019 Frequency: 5 times per week Estimated Hrs Per Day: .5 hour per day Rehab Potential: Good (pt is motivated and compliant) Barriers to Learning: Patient has cognitive deficits. Pt/Family Agrees to Plan: Yes Safety Risks/Education Teaching Recipient: Patient Teaching Methods: Discussion Response to Teaching: Verbalize Understanding Education Topics Provided: Safety within his room and communication of his wants/needs. Time Speech Therapy Time In: 12:45 Speech Therapy Time Out: 13:00 Total Billed Time: 15 Billed Treatment Time 1, SPSNDCOMP LIEN Coy Feb 25, 2019 13:37 POS
--- NOTE | 2019-02-25 14:52 | Occupational Therapy Eval ---
OT Evaluation-General/PLF Medical Diagnosis Admission Date Feb 25, 2019 at 11:15 Medical Diagnosis: chemotherapy neuropathy Onset Date: Feb 25, 2019 Therapy Diagnosis Therapy Diagnosis: decreased self care skills Height/Weight Height (Feet): 5 Height (Inches): 11.00 Weight (Pounds): 165 Weight (Ounces): 8.0 Precautions Precautions/Isolations: Fall Prevention, Standard Precautions Referral Physician: Nate Medical History Pertinent Medical History: Arthritis, COPD, GERD, HTN, Neuropathy Additional Medical History lung cancer, respiratory failure Social History Home: Multilevel (reports he can live on the first floor) Current Living Status: Alone Entry Into Home: Ramp ADL-Prior Level of Function SCALE: Activities may be completed with or without assistive devices. 6-Wzqismztui-jrbufwg completes the activity by him/herself with no assistance from a helper. 5-Set-up or Clean-up Assistance-helper sets up or cleans up; patient completes activity. [place] assists only prior to or following the activity. 4-Supervision or Touching Assistance-helper provides verbal cues and/or touching/steadying and/or contact guard assistance as patient completes activity. Assistance may be provided throughout the activity or intermittently. 3-Partial/Moderate Assistance-helper does LESS THAN HALF the effort. [place] lifts, holds or supports trunk or limbs, but provides less than half the effort. 2-Substantial/Maximal Assistance-helper does MORE THAN HALF the effort. [place] lifts or holds trunk or limbs and provides more than half the effort. 9-Gthctwtly-uxaavd does ALL the effort. Patient does none of the effort to complete the activity. Or, the assistance of 2 or more helpers is required for the patient to complete the activity. If activity was not attempted, code reason: 7-Patient Refused. 9-Not Applicable-not attempted and the patient did not perform the activity before the current illness, exacerbation or injury. 10-Not Attempted due to Environmental Limitations-(lack of equipment, weather restraints, etc.). 88-Not Attempted due to Medical Conditions or Safety Concerns. ADL PLOF Comments Pt reports being independent with basic self care and mobility. States he uses a walker for mobility. Pt reports having assist as needed for housekeeping. States he mostly eats out, doesn't cook much. Self Care: Independent DME/Equipment: Bath Chair, Grab Bars, Shower, Tall Toilet Drive Self: Yes OT Current Status Subjective Pt sitting in chair, agrees to therapy. Pt reports 7/10 pain in right foot. Mental Status/Objective Patient Orientation: Person, Place Attachments: Oxygen Current Glasses/Contacts: Yes (reading) Hearing Aids: No (pt states he had hearing aids, but they are broken) Dentures/Partials: Yes Hand Dominance: Right Upper Extremity ROM Decreased shoulder ROM bilaterally Upper Extremity Coordination Fair Upper Extremity Sensation Intact per pt report Upper Extremity Strength decreased bilaterally ADL-Treatment ADL-Current Pt requests to use restroom. Sit to stand with CGA. Gait to restroom with FWW, assist to manage O2 and IV. Transfer to toilet with min assist. Pt able to complete toileting hygiene. Stood at sink to wash hands with CGA for balance. Pt states he already completed sponge bath this morning prior to arrival to [facility], but requests to get dressed secondary to being cold. Pt donned Depends and pants with minimal assistance. Stood with CGA for balance during pant hike. Pt doffed socks without assist. Donned right sock with set up, but required min assist for left sock. Don pullover shirt with set up. Pt combed hair and shaved with electric razor with set up. Occasional rest breaks taken during ADL tasks. Eating (QC): 6 (per nursing report) Upper Body Dressing (QC): 5 Lower Body Dressing (QC): 3 On/Off Footwear (QC): 3 Toileting Hygiene (QC): 3 Toilet Transfer (QC): 3 Other Treatments Co-treat with PT secondary to pt's impaired activity tolerance, decreased strength and impaired balance. Pt performed gait to therapy gym with FWW with rest break taken upon arrival. Pt performed three standing activities while standing in parallel bars. Pt used bilateral UE to catch/ throw ball to increase standing balance and bilateral UE coordination. Pt also stood and kicked ball using bilateral LE to increase balance and activity tolerance. Pt stood and completed fine motor task with nuts and bolts to increase balance, activity tolerance, and bilateral UE coordination. Rest breaks taken between activities secondary to decreased activity tolerance. OT focusing on UE coordination, activity tolerance, and management. PT focusing on LE management, balance, and transfers. Pt has decreased balance and requires min assist for safety. Pt sitting in chair with PT present for continued treatment after session. Education OT Patient Education: Rehab process Teaching Recipient: Patient Teaching Methods: Discussion Response to Teaching: Verbalize Understanding OT Short Term Goals Short Term Goals 1=Demonstrate adherence to instructed precautions during ADL tasks. 2=Patient will verbalize/demonstrate understanding of assistive devices/modifications for ADL. 3=Patient will improve strength/tolerance for activity to enable patient to perform ADL's. OT Retirement Goals Retirement Goals Time Frame: Mar 18, 2019 Eating (QC): 6 Oral Hygiene (QC): 6 Shower/Bathe Self (QC): 5 Upper Body Dressing (QC): 6 Lower Body Dressing (QC): 6 On/Off Footwear (QC): 6 Toileting Hygiene (QC): 6 Toilet/Commode Transfer (QC): 6 Additional Goals: 1-Demonstrate ADL Tasks, 2-Verbalize Understanding, 3- ImproveStrength/[place] 1=Demonstrate adherence to instructed precautions during ADL tasks. 2=Patient will verbalize/demonstrate understanding of assistive devices/modifications for ADL. 3=Patient will improve strength/tolerance for activity to enable patient to perform ADL's. Goals established to increase functional independence and allow safe discharge plan. OT Education/Plan Problem List/Assessment Assessment: Decreased Activ Tolerance, Decreased Safety Aware, Decreased UE Strength, Dependent Transfers, Impaired Coordination, Impaired Funct Balance, Impaired I ADL's, Impaired Self-Care Skills Pt demonstrates decreased ADL functioning, mobility, strength, and activity tolerance. Pt to benefit from skilled OT intervention for ADL training, transfers, strengthening, and safety education to increase level of independence and allow safe discharge plan. Discharge Recommendations Plan/Recommendations: Continue POC Treatment Plan/Plan of Care Treatment,Training & Education: Yes Patient would benefit from OT for education, treatment and training to promote independence in ADL's, mobility, safety and/or upper extremity function for ADL's. Plan of Care: ADL Retraining, Functional Mobility, Group Exercise/Act as Ind, UE Funct Exercise/Act Treatment Duration: Mar 18, 2019 Frequency: Modified Program (IRF) (04/11) Estimated Hrs Per Day: 1.5 hours per day Rehab Potential: Good (pt is motivated and compliant) Time/GCodes Start Time: 13:15 Stop Time: 14:45 Total Time Billed (hr/min): 90 Billed Treatment Time 1 visit, EVM(15minutes), ADLx3(45minutes), FAx2(30minutes) Co-treat with PT 30minutes BARNEY GRECO OT Feb 25, 2019 14:52 POS
--- NOTE | 2019-02-25 15:11 | Physical Therapy Daily Note ---
PT Daily Note-Current Subjective Pt in recliner pre-tx with OT in the room. Pt agrees to therapy at this time. This will be a co-treat with OT secondary to pt's generalized weakness, decreased activity joby, poor endurance, impaired balance, the need to coordinate UE and LE during activity. Appearance pt in recliner post-tx with call light, room phone, and tray table with all needs met at this time. Mental Status Patient Orientation: Person, Place, Time, Situation Attachments: Oxygen, IV Transfers SCALE: Activities may be completed with or without assistive devices. 4-Qgxfhmkbsc-pnlgpol completes the activity by him/herself with no assistance from a helper. 5-Set-up or Clean-up Assistance-helper sets up or cleans up; patient completes activity. [place] assists only prior to or following the activity. 4-Supervision or Touching Assistance-helper provides verbal cues and/or touching/steadying and/or contact guard assistance as patient completes activity. Assistance may be provided throughout the activity or intermittently. 3-Partial/Moderate Assistance-helper does LESS THAN HALF the effort. [place] lifts, holds or supports trunk or limbs, but provides less than half the effort. 2-Substantial/Maximal Assistance-helper does MORE THAN HALF the effort. [place] lifts or holds trunk or limbs and provides more than half the effort. 3-Nuasyiofp-gqjrry does ALL the effort. Patient does none of the effort to complete the activity. Or, the assistance of 2 or more helpers is required for the patient to complete the activity. If activity was not attempted, code reason: 7-Patient Refused. 9-Not Applicable-not attempted and the patient did not perform the activity before the current illness, exacerbation or injury. 10-Not Attempted due to Environmental Limitations-(lack of equipment, weather restraints, etc.). 88-Not Attempted due to Medical Conditions or Safety Concerns. Sit to Stand (QC): 4 (SBA) Weight Bearing Right Lower Extremity: Right Weight Bearing/Tolerated Left Lower Extremity: Left Weight Bearing/Tolerated Gait Training Distance: 150'x2 Walk 10 feet (QC): 4 (CGA) Walk 50 ft with 2 Turns(QC): 4 (CGA) Walk 150 ft (QC): 4 (CGA) Gait Assistive Device: FWW pt continues to ambulate with the R foot dorsiflexed and supinated. Pt ambulates with fast choppy unsteady steps Wheelchair Training Does the Pt Use a Wheelchair?: No Balance Special Test Comments Pt performed balance training with PT standing in // bars with B/L hands on bars kicking with B/L feet ball back and fourth to OT working on functional tasks for 30 kicks Pt performed balance training with PT standing in // bars using B/L hands to catch and throw ball to OT working on functional UE use for 5 minutes Pt performed balance training with PT standing on Aerex foam using B/L UE to work on functional tasks for 2 minutes pt required mod-CGA for balance exercises Exercises Seated Therapy Exercises: Ankle pumps, Long arc quads, Hip flexion, Hip abd/add Seated Reps: 30 (15reps 2 sets) Treatments Pt performed transfer training and skilled ambulation training with PT. Pt performed standing balance training with PT to stay up right while performing both UE and LE functional tasks with OT to simulate functional activities and challenge the patients balance. Assessment Current Status: Fair Progress Pt requires CGA to modA for balance exercises this date. During balance training pt shifts weight over the L LE and shifts hips posteriorly while keeping his hips flexed. Pt had increased challenge on aerex foam but overall with balance had only minimal LOB requiring assist from PT, pt did have multiple minor LOB that required him to grab // bars to regain balance. Due to pt's imbalance and unsteadiness with ambulation the patient is at risk for a fall at this time. PT Prison Goals Prison Goals PT Belt Weaver Goals Time Frame: Mar 20, 2019 Sit to Lying (QC): 6 Lying-Sitting on Side/Bed(QC): 6 Sit to Stand (QC): 6 Roll Left to Right (QC): 6 Chair/Sbb-ti-Zzjyd Xfer(QC): 6 Car Transfer (QC): 6 Walk 10 feet (QC): 6 Walk 10ft-Uneven Surface(QC): 6 Walk 50ft with 2 Turns (QC): 6 Walk 150 ft (QC): 6 Gait Assistive Device: FWW Wheel 50 feet with 2 turns (QC: 9 1 Step (curb) (QC): 4 4 Steps (QC): 9 12 Steps (QC): 9 Picking up an Object (QC): 9 PT Plan Problem List Problem List: Activity Tolerance, Functional Strength, Safety, Balance, Gait, Transfer, Bed Mobility Treatment/Plan Treatment Plan: Continue Plan of Care Treatment Plan: Bed Mobility, Concurrent Therapy, Education, Functional Activity [place], Functional Strength, Group Therapy, Gait, Safety, Therapeutic Exercise, Transfers Frequency: Modified Program (IRF) (04/11) Estimated Hrs Per Day: 1.5 hours per day Patient and/or Family Agrees t: Yes Safety Risks/Education Patient Education: Gait Training, Transfer Techniques, Correct Positioning, Safety Issues Teaching Recipient: Patient Teaching Methods: Demonstration, Discussion Response to Teaching: Return Demonstration, Reinforcement Needed Time/GCodes Time In: 1415 Time Out: 1505 Total Billed Treatment Time: 50 Total Billed Treatment 1 visit FA 35' GT 15' Co-treated with OT for 30 min. PT worked on ambulation, LE exercise, transfers, balance during balance activities, OT worked on UE positioning during activity, UE exercise during balance activity. Co-treated from [id number]. ZORA CORDERO PT Feb 25, 2019 15:11 POS
[2019-02-25] MEDS: GABAPENTIN 300 MG (NEURONTIN) CAP PO SCH ×2 (15:19→19:16)
[2019-02-25] MEDS: RT-ALBUTEROL/IPRATROPIUM 3 ML (DUONEB) VIAL INH SCH ×3 (15:47→19:18)
--- NOTE | 2019-02-25 16:08 | NUR ---
RD ASSESSMENT PMHx: COPD; HTN; TBI; CA(lung) PT INTERACTION: Pt was awake and pleasant during nutrition assessment. Pt states current appetite is good. Note pt avg PO intake >75% x2d, per chart review. Pt states following a regular diet at home, and currently has some issues with chewing due to poor teeth. Pt states no current issues with n/v, but had experienced episodes up until a couple of days ago. Note pt currently on zofran. Pt states no recent issues with c/d at this time. Note no BM has been recorded and pt currently on bowel regimen of senna, colace. Pt states no recent wt changes. Note unable to determine recent wt hx, per chart review. ABNORMAL NUTRITION-RELATED LAB VALUES: BUN 6 (L) Est. kcal needs: 1529-7496 kcal (25-30 kcal/kg) Est. Pro needs: 72-86 g Pro (1.0-1.2 g Pro/kg) PES STATEMENT: Given pt's current PO intake and wt hx, no nutrition diagnosis at this time (NO-1.1) INTERVENTION: Continue with current diet order of Regular diet. MONITOR/EVALUATE: PO Intake; Plan of Care; Hydration Status; Weight Status; Lab Values Trevor Mccullough, MS, RD, LD Ext. 133
[2019-02-25 18:03] VITALS: BP 152/64
[2019-02-25] MEDS: PIPERACILLIN/TAZOBACTAM (BULK) 4.5 GM in NS (IVPB) 100 ML IV SCH (18:04)
[2019-02-25] MEDS: SENNA W/DOCUSATE (SENOKOT S) TABLET PO SCH (19:17)
[2019-02-26] MEDS: ARTIFICAL TEARS 0.4 ML UNIT DOSE (REFRESH PLUS) OD SCH ×11 (01:58→22:22)
[2019-02-26] MEDS: PIPERACILLIN/TAZOBACTAM (BULK) 4.5 GM in NS (IVPB) 100 ML IV SCH ×3 (01:58→17:34)
[2019-02-26] MEDS: RT-ALBUTEROL/IPRATROPIUM 3 ML (DUONEB) VIAL INH SCH ×5 (02:01→20:56)
[2019-02-26] MEDS: PANTOPRAZOLE 20 MG TABLET (PROTONIX) PO SCH (05:22)
[2019-02-26] MEDS: KCL 20 MEQ TAB (K-DUR) PO SCH (05:22)
[2019-02-26] MEDS: MULTIVIT W/MINERALS TAB (THERAGRAN M) PO SCH (05:22)
[2019-02-26 06:00] VITALS: BP 136/68
[2019-02-26 06:36] LABS: BASOPHILS % (AUTO) 0 % (0-10); EOSINOPHILS # (AUTO) 0.7 10^3/uL (0.0-0.3); EOSINOPHILS % (AUTO) 14 % (0-10); HEMATOCRIT 34 % (40-54); HEMOGLOBIN 10.6 G/DL (13.3-17.7); LYMPHOCYTES # (AUTO) 1.3 X 10^3 (1.0-4.0); LYMPHOCYTES % (AUTO) 27 % (12-44); MEAN CORPUSCULAR HEMOGLOBIN 28 PG (25-34); MEAN CORPUSCULAR HGB CONC 32 G/DL (32-36); MEAN CORPUSCULAR VOLUME 87 FL (80-99); MEAN PLATELET VOLUME 10.3 FL (7.4-10.4); MONOCYTES # (AUTO) 0.5 X 10^3 (0.0-1.0); MONOCYTES % (AUTO) 10 % (0-12); NEUTROPHILS # (AUTO) 2.3 X 10^3 (1.8-7.8); NEUTROPHILS % (AUTO) 48 % (42-75); PLATELET COUNT 231 10^3/uL (130-400); RED CELL DISTRIBUTION WIDTH 14.3 % (10.0-14.5); WHITE BLOOD COUNT 4.8 10^3/uL (4.3-11.0)
[2019-02-26 07:00] LABS: ALANINE AMINOTRANSFERASE 22 U/L (0-55); ALBUMIN 3.3 GM/DL (3.2-4.5); ALKALINE PHOSPHATASE 82 U/L (40-136); BILIRUBIN,TOTAL 0.4 MG/DL (0.1-1.0); BUN/CREATININE RATIO 9; CALCIUM 9.2 MG/DL (8.5-10.1); CARBON DIOXIDE 27 MMOL/L (21-32); CHLORIDE 103 MMOL/L (98-107); GFR ESTIMATED > 60; GLUCOSE 89 MG/DL (70-105); POTASSIUM 3.7 MMOL/L (3.6-5.0); SODIUM 140 MMOL/L (135-145); TOTAL PROTEIN 6.7 GM/DL (6.4-8.2)
[2019-02-26] MEDS: ASCORBIC ACID (VIT C) 500 MG TABLET PO SCH (08:15)
[2019-02-26] MEDS: LORATADINE (CLARITIN) 10 MG TAB PO SCH (08:15)
[2019-02-26] MEDS: SENNA W/DOCUSATE (SENOKOT S) TABLET PO SCH ×2 (08:17→20:54)
[2019-02-26] MEDS: GABAPENTIN 300 MG (NEURONTIN) CAP PO SCH ×3 (08:17→20:54)
[2019-02-26] MEDS: TAMSULOSIN 0.4 MG (FLOMAX) CAP PO SCH (08:17)
[2019-02-26] MEDS: PARoxetine 20 MG (PAXIL) TAB PO SCH (08:18)
[2019-02-26] MEDS: amLODIPine 10 MG (NORVASC) TAB PO SCH (08:24)
[2019-02-26] MEDS: FENTANYL PATCH REMOVAL TP SCH (08:33)
[2019-02-26] MEDS: fentaNYL PATCH 100 MCG (DURAGESIC) TD SCH (08:36)
--- NOTE | 2019-02-26 08:37 | PM&R Post Admission Assessment ---
PM&R HP Date of Visit: Feb 26, 2019 Time of Visit: 08:45 History of Present Illness Med Surg: Chief complaint: Pneumonia and lung cancer and debilitated patient History of present illness: This is an 78-year-old white male known to me from prior hospital stays including an inpatient rehab stay after pneumonia who has a history of lung cancer on chemotherapy and a recent issue with blood in the stool status post endoscopy revealing no mass who presented to [facility] with complaints of shortness of breath and fever and not feeling well and his family brought him to the ER patient was found to have a pneumonia with elevated white count normal lactic acid but very debilitated in need of inpatient hospital stay with supportive care and IV antibiotics. He does continue using oxygen at home and has not had any significant hospital stays since I last admitted him to [facility]. I have restarted his oxycodone gabapentin and fentanyl patch which he is already asking about. Pt presented to emergency department due to productive cough, increase home ox ygen use, nausea and fatigue. Patient was admitted to Dr. Sullivan for IV antibiotics for suspected recurrent pneumonia. Following two days of IV antibiotic administration, patient endorses resolution of cough, nausea and fatigue. Pt agreed to continue hospital course in rehabilitation unit until he was feeling well enough to go home. Admission Diagnosis Assessment: Pneumonia Chronic Debility Lung cancer hx on chemotherapy HTN Neuropathy TBI hx Depression GERD Chronic pain Chronic incontinence Plan: Pneumonia protocol Incontinence long-term meds (2) RESPIRATORY FAILURE, UNSP, UNSP W HYPOXIA OR HYPERCAPNIA (3) Lung cancer (4) Chronic pain (5) Essential (primary) hypertension (6) TBI (traumatic brain injury) hx (7) Anemia (8) Elevated brain natriuretic peptide (BNP) level (11) H/O prostatectomy (12) Urinary incontinence Past Otgiwcs-Tcyzxg-Phceeu Hx Past Med/Social Hx: Reviewed Nursing Past Med/Soc Hx, Reviewed and Corrections made Patient Social History Marrital Status: single Employed/Student: retired Alcohol Use: Occasionally Uses Number of Drinks Today: AA Alcohol Beverage of Choice: Beer, Whiskey Recreational Drug Use: Yes Smoking Status: Former Smoker Former Smoker, Quit: Apr 23, 1969 Type Used: Cigarettes 2nd Hand Smoke Exposure: No Physical Abuse Screen: No Sexual Abuse: No Recent Foreign Travel: No Contact w/other who traveled: No Recent Hopitalizations: No Recent Infectious Disease Expo: No Immunizations Up To Date Tetanus Booster (TDap): Unknown Pediatric: Yes Date of Pneumonia Vaccine: Feb 04, 2016 Date of Influenza Vaccine: Jan 09, 2018 Seasonal Allergies Seasonal Allergies: Yes Past Medical History Surgeries: Eye Surgery, Gallbladder, Joint Replacement, Orthopedic Respiratory: COPD, Pneumonia Currently Using CPAP: No Currently Using BIPAP: No Cardiac: Hypertension Neurological: Concussion, Neuropathy, Traumatic Brain Injury Genitourinary: Prostate Problems, UTI-Chronic Gastrointestinal: Abdominal Hernia, Gastrointestinal Bleed Musculoskeletal: Arthritis, Back Injury, Chronic Back Pain Loss of Vision: Right Hearing Impairment: Hard of Hearing, Hearing Aide Right, Deaf Cancer: Lung Did You Recieve Any Treatments: Yes What Type of Treatment Did You: Chemotherapy Skin/Integumentary: Recent Skin Changes History of Blood Disorders: No Adverse Reaction to Blood Buitrago: No Family History Arthritis Colon cancer Coronary thrombosis Hypertension Myocardial infarction Respiratory disorder Heart Disease, Cancer, Hypertension Prior Level of Function Bed Mobility: 6 Transfers: 6 Gait: 6 Stairs: 9 Indoor Mobility (Ambulation): Independent Prior Devices Use: Walker Self Care: Independent 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 Drive Self: Yes Current Level of Fuctioning Roll Left to Right: 4 Sit to Lyin Lying to Sitting/Side of Bed: 4 Sit to Stand: 4 (SBA) Chair/Osr-uj-Vqwtj Xfer: 3 Car Transfer: 3 (asssist with standing to turn and to sit for safety and steadying assist. ) Does the Patient Walk: Yes Anticipated Mode of Locomotion: Walk Distance: 3=437-61 ft Walk 10 feet: 4 (CGA) Walk 50 ft with 2 Turns: 4 (CGA) Walk 150 ft: 4 (CGA) Walking 10ft on uneven surface: 3 Gait Assistive Device: FWW Does the Pt Use a Wheelchair: No Wheel 50 ft with 2 turns: 9 Wheel 150 ft: 9 1 Step (curb): 3 (min assist for balance and lifting assist at the gait belt) 4 Steps: 88 12 Steps: 88 Picking up an Object: 88 Eatin (per nursing report) Upper Body Dressin Lower Body Dressin On/Off Footwear: 3 Toileting Hygiene: 3 Toilet Transfer: 3 PM&R Allergy/Meds/Data Review Allergies Coded Allergies: baclofen (Verified Allergy, Unknown, 11/24/18) metoclopramide (Verified Allergy, Unknown, 11/24/18) Home Medications Scheduled Afatinib Dimaleate (Gilotrif), 30 MG PO DAILY, (Reported) Amlodipine Besylate (Amlodipine Besylate), 10 MG PO DAILY, (Reported) Ascorbic Acid (Ascorbic Acid), 500 MG PO DAILY, (Reported) Carboxymethylcellulose Sodium (Refresh Tears), 1 DROP OD Q2H, (Reported) Fentanyl (Fentanyl Patch 100 MCG), 100 MCG TD Q72H, (Reported) Gabapentin (Gabapentin), 600 MG PO TID, (Reported) Loratadine (Loratadine), 10 MG PO DAILY, (Reported) Mineral Oil/Petrolatum,White (Systane Nighttime Eye Oint), OD HS, (Reported) Multivitamin (Multi-Vitamin Daily), 1 TAB PO DAILY, (Reported) Omeprazole (Omeprazole), 20 MG PO DAILY, (Reported) Paroxetine HCl (Paroxetine HCl), 20 MG PO DAILY, (Reported) Potassium Chloride (Potassium Chloride), 20 MEQ PO DAILY, (Reported) Tamsulosin HCl (Flomax), 0.4 MG PO DAILY, (Reported) Umeclidinium Brm/Vilanterol Tr (Anoro Ellipta 62.5-25 Mcg INH), 1 PUFF IH DAILY, (Reported) Scheduled PRN Nystatin (Nystatin), TOP BID PRN for RASH, (Reported) Ondansetron (Ondansetron Odt), 4 MG PO Q8H PRN for NAUSEA/VOMITING-1ST LINE, (Reported) Oxycodone HCl (Oxycodone HCl), 5 MG PO Q6H PRN for PAIN-SEVERE, (Reported) Triamcinolone Acet (Triamcinolone Acetonide 0.025%), 1 EA TOP UD PRN for ITCHING, (Reported) Discontinued Medications Afatinib Dimaleate (Gilotrif), 30 MG PO DAILY Discontinued Reason: Duplicate Order Albuterol Sulfate (Ventolin Hfa), 1 PUFF INH Q4H PRN for SHORTNESS OF BREATH, (Reported) Discontinued Reason: No Longer Taking Ipratropium/Albuterol Sulfate (Iprat-Albut 0.5-3(2.5) mg/3 ml), 3 ML IH Q12H PRN for SHORTNESS OF BREATH, (Reported) Discontinued Reason: No Longer Taking Prednisolone Acetate/Pf (Prednisolone Acet 1% Eye Drop), 1 DROP OD BID, (Reported) Discontinued Reason: No Longer Taking Triamcinolone Acetonide (Triamcinolone Acetonide 0.025% Ointment), TOP BID PRN for SKIN, (Reported) Discontinued Reason: Duplicate Order Current Medications Current Medications Reviewed meds Laboratory Data Laboratory Tests 02/26/19 06:20: White Blood Count 4.8, Red Blood Count 3.84L, Hemoglobin 10.6L, Hematocrit 34L, Mean Corpuscular Volume 87, Mean Corpuscular Hemoglobin 28, Mean Corpuscular Hemoglobin Concent 32, Red Cell Distribution Width 14.3, Platelet Count 231, Mean Platelet Volume 10.3, Neutrophils (%) (Auto) 48, Lymphocytes (%) (Auto) 27, Monocytes (%) (Auto) 10, Eosinophils (%) (Auto) 14H, Basophils (%) (Auto) 0, Neutrophils # (Auto) 2.3, Lymphocytes # (Auto) 1.3, Monocytes # (Auto) 0.5, Eosinophils # (Auto) 0.7H, Basophils # (Auto) 0.0, Sodium Level 140, Potassium Level 3.7, Chloride Level 103, Carbon Dioxide Level 27, Anion Gap 10, Blood Urea Nitrogen 6L, Creatinine 0.70, Estimat Glomerular Filtration Rate > 60, BUN /Creatinine Ratio 9, Glucose Level 89, Calcium Level 9.2, Corrected Calcium 9.8, Total Bilirubin 0.4, Aspartate Amino Transf (AST/SGOT) 24, Alanine Aminotransferase (ALT/SGPT) 22, Alkaline Phosphatase 82, Total Protein 6.7, Albumin 3.3 Review of Systems Constitutional: see HPI, malaise, weakness EENTM: no symptoms reported Respiratory: cough, dyspnea on exertion Cardiovascular: no symptoms reported Gastrointestinal: no symptoms reported Genitourinary: no symptoms reported Musculoskeletal: no symptoms reported Skin: no symptoms reported Psychiatric/Neurological: No Symptoms Reported All Other Systems Reviewed Negative Unless Noted: Yes Physical Exam Physical Exam Vital Signs Vital Signs - First Documented 02/25/19 11:45 Temp 36.3 Pulse 73 Resp 18 B/P (MAP) 147/69 Pulse Ox 97 O2 Delivery Nasal Cannula O2 Flow Rate 3.00 Capillary Refill : Height, Weight, BMI Height: 5'11.00" Weight: 165lbs. 8.0oz. [id number]; 22.11 BMI Method:Stated General Appearance: No Apparent Distress, Anxious, Chronically ill, Thin Eyes: Bilateral Eye Normal Inspection, Bilateral Eye PERRL HEENT: PERRL/EOMI, Normal ENT Inspection, Pharynx Normal Neck: Full Range of Motion, Normal Inspection, Non Tender, Supple, Carotid Br uit Respiratory: Chest Non Tender, No Accessory Muscle Use, No Respiratory Distress, Crackles, Decreased Breath Sounds Cardiovascular: Regular Rate, Rhythm, No Edema, No Gallop, No JVD, No Murmur, Normal Peripheral Pulses Gastrointestinal: Normal Bowel Sounds, No Organomegaly, No Pulsatile Mass, Non Tender, Soft Back: Normal Inspection, No CVA Tenderness, No Vertebral Tenderness Extremity: Normal Capillary Refill, Normal Inspection, Normal Range of Motion, Non Tender, No Calf Tenderness, No Pedal Edema Neurologic/Psychiatric: Alert, Oriented x3, No Motor/Sensory Deficits, Normal Mood/Affect, Motor Weakness (generalized weakness legs) Skin: Normal Color, Warm/Dry Lymphatic: No Adenopathy PM&R Medical Assessment & Plan REHAB/MEDICAL ASSESSMENT AND PLAN: REHAB IMPAIRMENT GROUP: Myopathy ETIOLOGIC DIAGNOSIS: Pneumonia The comorbidities that impact the patients function and/or functional outcome by: Chemotherapy for lung cancer, TBI hx, falls in past REHAB PLAN: The patient is being admitted to our comprehensive inpatient rehabilitation facility and can tolerate the intensity of service consisting of at least: 180 minutes of therapy a day, 5 out of 7 days a week Rehab treatment will consist of: PT will focus on strengthening legs and fall prevention, OT will focus on independence in ADL's The patient/family has a good understanding of our discharge process and will benefit from an interdisciplinary inpatient rehabilitation program. The patient has potential to make improvement and is in need of at least two of the follow ing multidisciplinary therapies including but not limited to physical, occupational, speech, and prosthetics and orthotics. Additionally the patient will need services from respiratory, nutritional services, wound care, psychology, etc. (Customize this to each patient). Given the patients complex condition and risk of further medical complications, rehabilitation services cannot be safely or effectively provided at a lower level of care such as a fdc facility. BARRIERS TO DISCHARGE: Ambulate without falls ESTIMATED LOS: 5 days DISPOSITION: Home RELEVANT CHANGES SINCE PREADMISSION SCREENING: I have compared the patients medical and functional status at the time of the preadmission screening and there are: no changes PROGNOSIS: Good REHABILITATION GOALS: 1. Gain confidence in order to return home 2. Decrease hospitalizations 3. Regain ability to perform ADL's All the above goals were reviewed with the patient and he/she is in agreement. By signing this document, I acknowledge that I have personally performed a full physical examination on this patient within 24 hours of admission to this inpatient rehabilitation facility and have determined the patient to be able to tolerate the above course of treatment at an intensive level for a reasonable period of time. I will be completing a detailed individualized Plan of Care for this patient by day #4 of the patients stay based upon the Preadmission Screen, the Post-Admission Evaluation, and the therapy evaluations. Admission Dx/Comorbidities: (1) Generalized weakness Status: Acute ICD Codes: R53.1 - Weakness (2) Left upper lobe pneumonia Status: Acute ICD Codes: J18.1 - Lobar pneumonia, unspecified organism (3) Nausea & vomiting Status: Resolved ICD Codes: R11.2 - Nausea with vomiting, unspecified (4) Urinary incontinence ICD Codes: R32 - Unspecified urinary incontinence (5) Hypokalemia Status: Acute ICD Codes: E87.6 - Hypokalemia (6) DVT prophylaxis Status: Acute ICD Codes: Z29.9 - Encounter for prophylactic measures, unspecified (7) Essential (primary) hypertension Status: Chronic ICD Codes: I10 - Essential (primary) hypertension (8) Anemia ICD Codes: D64.9 - Anemia, unspecified (9) Myopathy ICD Codes: G72.9 - Myopathy, unspecified (10) Lung cancer Status: Chronic ICD Codes: C34.90 - Malignant neoplasm of unspecified part of unspecified bronchus or lung (11) Debility Status: Chronic ICD Codes: R53.81 - Other malaise (12) Chronic pain Status: Chronic ICD Codes: G89.29 - Other chronic pain (13) TBI (traumatic brain injury) Status: Chronic ICD Codes: S06.9X9A - Unspecified intracranial injury with loss of consciousness of unspecified duration, initial encounter (14) RESPIRATORY FAILURE, UNSP, UNSP W HYPOXIA OR HYPERCAPNIA Status: Acute ICD Codes: J96.90 - RESPIRATORY FAILURE, UNSP, UNSP W HYPOXIA OR HYPERCAPNIA BEBETO SULLIVAN DO Feb 26, 2019 08:37 POS
--- NOTE | 2019-02-26 10:10 | Occupational Ther Daily Note ---
OT Current Status-Daily Note Subjective Pt alert, lying in bed. Pt agrees to therapy. Pt c/o pain, reported to nrsg. Mental Status/Objective Patient Orientation: Person, Place, Time, Situation Attachments: Lowry Catheter, Oxygen (3L) ADL-Treatment Pt agrees to shower. Pt ambulated to bathroom with min A due to balance difficulty. Pt transferred to toilet with min A. Completed toileting hygiene and clothing manipulation with CGA. Min A to transfer into shower. SBA for shower using grabbars, hand held shower and shower bench. Pt complete oral care for dentures. Pt takes increased time to complete tasks due to decreased activity tolerance and mobility. After therapy, pt sitting in recliner with call light/phone in reach. Nrsg present in room. All needs met in room. Therapy Code Descriptions/Definitions Functional [place] Measure: 0=Not Assessed/NA 4=Minimal Assistance 1=Total Assistance 5=Supervision or Setup 2=Maximal Assistance 6=Modified Eugene 3=Moderate Assistance 7=Complete IndependenceSCALE: Activities may be completed with or without assistive devices. 2-Qrxzhuvevh-gjpzrbm completes the activity by him/herself with no assistance from a helper. 5-Set-up or Clean-up Assistance-helper sets up or cleans up; patient completes activity. [employer] assists only prior to or following the activity. 4-Supervision or Touching Assistance-helper provides verbal cues and/or touching/steadying and/or contact guard assistance as patient completes activity. Assistance may be provided throughout the activity or intermittently. 3-Partial/Moderate Assistance-helper does LESS THAN HALF the effort. [employer] lifts, holds or supports trunk or limbs, but provides less than half the effort. 2-Substantial/Maximal Assistance-helper does MORE THAN HALF the effort. [employer] lifts or holds trunk or limbs and provides more than half the effort. 3-Revdsfmim-jvqfpi does ALL the effort. Patient does none of the effort to complete the activity. Or, the assistance of 2 or more helpers is required for the patient to complete the activity. If activity was not attempted, code reason: 7-Patient Refused. 9-Not Applicable-not attempted and the patient did not perform the activity before the current illness, exacerbation or injury. 10-Not Attempted due to Environmental Limitations-(lack of equipment, weather restraints, etc.). 88-Not Attempted due to Medical Conditions or Safety Concerns. OT Short Term Goals Short Term Goals 1=Demonstrate adherence to instructed precautions during ADL tasks. 2=Patient will verbalize/demonstrate understanding of assistive devices/modifications for ADL. 3=Patient will improve strength/tolerance for activity to enable patient to perform ADL's. OT Operational Intelligence Analyst Goals Fpc Goals Time Frame: Mar 18, 2019 Eating (QC): 6 Oral Hygiene (QC): 6 Shower/Bathe Self (QC): 5 Upper Body Dressing (QC): 6 Lower Body Dressing (QC): 6 On/Off Footwear (QC): 6 Toileting Hygiene (QC): 6 Toilet/Commode Transfer (QC): 6 Additional Goals: 1-Demonstrate ADL Tasks, 2-Verbalize Understanding, 3- ImproveStrength/Herrera 1=Demonstrate adherence to instructed precautions during ADL tasks. 2=Patient will verbalize/demonstrate understanding of assistive devices/modifications for ADL. 3=Patient will improve strength/tolerance for activity to enable patient to perform ADL's. OT Education/Plan Problem List/Assessment Assessment: Decreased Activ Tolerance, Decreased UE Strength, Impaired Coordination, Impaired Funct Balance, Impaired Self-Care Skills Pt demonstrates decreased ADL functioning, mobility, strength, and activity tolerance. Pt to benefit from skilled OT intervention for ADL training, transfers, strengthening, and safety education to increase level of independence and allow safe discharge plan. Discharge Recommendations Plan/Recommendations: Continue POC Treatment Plan/Plan of Care Patient would benefit from OT for education, treatment and training to promote independence in ADL's, mobility, safety and/or upper extremity function for ADL's. Plan of Care: ADL Retraining, Functional Mobility, Group Exercise/Act as Ind, UE Funct Exercise/Act Treatment Duration: Mar 18, 2019 Frequency: Modified Program (IRF) (04/11) Estimated Hrs Per Day: 1.5 hours per day Rehab Potential: Good (pt is motivated and compliant) Time/GCodes Start Time: 07:00 Stop Time: 08:15 Total Time Billed (hr/min): 75 Billed Treatment Time 1 visit-ADL 5 (75 min) GERMAIN BAR Feb 26, 2019 10:10 POS
[2019-02-26] MEDS: ENOXAPARIN 40 MG/0.4 ML (LOVENOX) SYR SC SCH (10:33)
--- NOTE | 2019-02-26 10:58 | Individualized Plan of Care ---
Individualized Plan of Care Rehab Nursing IPOC Order Admission Date Feb 25, 2019 at 11:15 Current Orders Orders Admission Order(Inpt,Obs,Sdc) (02/25/19 11:05) Vital Signs: Per Unit Policy ( ,16,00 (02/25/19 11:05) Turn Machine Operator-Inpt Rehab Con (02/25/19 11:05) Rehab Nursing Orders-Ipoc (02/25/19 11:05) Physical Therapy Rehab Orders (02/25/19 11:05) Occupational Therapy Rehab Ord (02/25/19 11:05) Speech Therapy Rehab Orders (02/25/19 11:05) Intake & Output 06,14,22 (02/25/19 11:05) Precautions (Aru) (02/25/19 11:05) Weekly Weight WEEK (02/25/19 11:05) Rehab-Intensity Of Therapy (02/25/19 11:05) Initiate Admission Nursing Pro .admission (02/25/19 11:05) Initiate Admission Nursing Pro .admission (02/25/19 11:05) Admission Arrival Bed Request (02/25/19 11:15) Code/Resuscitation (02/25/19 11:51) Initiate Admission Nursing Pro .admission (02/25/19 11:51) Oxygen-Administer (02/25/19 11:51) Pt Pulse Oximetry (02/25/19 11:51) Weight Bearing Status (02/25/19 11:51) General/Regular (02/25/19 Dinner) (Nf) Umeclidinium Brm/Vilanterol Tr (Ano (02/26/19 09:00) Acetaminophen Tablet/Caplet (Tylenol T (02/25/19 12:00) Albuterol/Ipra Inhalation Soln (Duoneb I (02/25/19 14:00) Ascorbic Acid Tablet (Vitamin C Tablet) (02/26/19 08:00) Carboxymethylcell Ophth Soln (Refresh Pl (02/25/19 12:00) Gabapentin Capsule/Tablet (Neurontin Cap (02/25/19 13:00) Loratadine Tablet (Claritin Tablet) (02/26/19 09:00) Nystatin Cream (Mycostatin Cream) (02/25/19 12:00) Ondansetron Injection (Zofran Injectio (02/25/19 12:00) Ondansetron Oral Dissolve Tab (Zofran (02/25/19 12:00) Paroxetine Tablet (Paxil Tablet) (02/26/19 09:00) Pantoprazole Tablet (Protonix Tablet) (02/26/19 07:00) Piperacillin/Tazobactam (Bulk) (Zosyn In (02/25/19 18:00) Potassium Chloride (Tablet) (K Dur Table (02/26/19 07:00) Tamsulosin Capsule (Flomax Capsule) (02/26/19 09:00) Therapeutic Multivitamin Tab (Vitamins, (02/26/19 07:00) Triamcinolone 0.025% Cream (Kenalog 0.02 (02/25/19 12:00) Amlodipine Tablet (Norvasc Tablet) (02/26/19 09:00) Oxycodone Immediate Rel Tablet (Oxyir Ta (02/25/19 16:15) Mat Initiate Protocol (02/25/19 11:51) Rt Request For Service (02/25/19 11:51) Svn Small Volume Nebulizer (02/25/19 11:51) Cbc With Automated Diff (02/26/19 06:00) Comprehensive Metabolic Panel (02/26/19 06:00) Melatonin Tablet (Melatonin Tablet) (02/25/19 12:00) Senna S Tablet (Senokot S Tablet) (02/25/19 21:00) Docusate Sodium Capsule (Colace Capsule) (02/25/19 12:00) Calcium Carbonate Chew Tablet (Antacid C (02/25/19 12:00) Diphenhydramine Tablet (Benadryl Tablet) (02/25/19 12:00) Loperamide Tablet (Imodium Tablet) (02/25/19 12:00) Enoxaparin Injection (Lovenox Injection) (02/26/19 10:00) Fentanyl Patch (Duragesic Patch) (02/26/19 09:00) Patch Removal (Patch Removal) (02/26/19 09:00) Patient Visit (02/25/19 ) Speech Sound Lang Comp (02/25/19 ) Patient Visit (02/26/19 ) Pt Eval Moderate Complexity (02/26/19 ) Functional Activities, Ea 15 (02/26/19 ) Patient Visit (02/26/19 ) Functional Activities, Ea 15 (02/26/19 ) Gait Training, Ea 15 Min (02/26/19 ) Patient Visit (02/26/19 ) Gait Training, Ea 15 Min (02/26/19 ) Exercise Therap, Ea 15 Min (02/26/19 ) Functional Activities, Ea 15 (02/26/19 ) Consult Podiatry (02/26/19 13:54) Patient Visit (02/26/19 ) Treat. Speech/Lang/Voice (02/26/19 ) Patient Visit (02/26/19 ) Rehab Nursing Orders: Ongoing Assess. of Cognitive Status, Ongoing Assess. of Function Status, Bladder Management, Bladder Scan, Bladder Training, Bowel Management, Bowel Training, Disease Management & Educaiton, DVT Prophylaxis, Fall Prevention, Fluid/Electrolyte/Nutrition Mgmt, Infection Prevention, Medication Management & Education, Management of Risks & Complications, Managem ent of Skin Intergrity, Nutrition Management, Pain Management, Patient/Family Support, Safety Management, Swallow Precautions Intensity of Therapy to be met Patient to be seen: 15 hrs over 7 cons. days PT IPOC Problem List: Activity Tolerance, Functional Strength, Safety, Balance, Gait, Transfer, Bed Mobility Treatment Plan: Continue Plan of Care Bed Mobility, Concurrent Therapy, Education, Functional Activity Herrera, F unctional Strength, Group Therapy, Gait, Safety, Therapeutic Exercise, Transfers Treatment Duration: Feb 26, 2019 Frequency: Modified Program (IRF) (04/11) Estimated Hrs Per Day: 1.5 hours per day OT IPOC Problems: Decreased Activ Tolerance, Decreased UE Strength, Impaired Coordination, Impaired Funct Balance, Impaired Self-Care Skills OT Treatment, Training and Edu: Yes OT Problems Pt demonstrates decreased ADL functioning, mobility, strength, and activity tolerance. Pt to benefit from skilled OT intervention for ADL training, transfers, strengthening, and safety education to increase level of independence and allow safe discharge plan. Plan of Care: ADL Retraining, Functional Mobility, Group Exercise/Act as Ind, UE Funct Exercise/Act Treatment Duration: Mar 18, 2019 Frequency: Modified Program (IRF) (04/11) Estimated Hrs Per Day: 1.[address] IPOC Speech Therapy Treatment Plan: Continue Plan of Care Treatment Duration: Mar 12, 2019 Frequency: 5 times per week Estimated Hrs Per Day: .5 hour per day Turn Machine Operator/Case Mgmt Turn Machine Operator/Case Managemen: Discharge Planning Dietitian/Internal Carver Dietitian/Internal Carver to monitor nutritional status and make changes and/or recommendations as needed and work with speech pathology on dietary upgrades as the occur. Physician IPOC Medical Issues being managed closely and that require the 24 hour availability of a physician: Pneumonia in debilitated lung cancer patient at high risk for decompensation Medical Issues: Bowel/Bladder Function, DVT Prophylaxis, Falls Precautions, Fluid/Electrolyte/Nutrition Balance, Infection Protection, Pain Management Brief Synthesis of Preadmission Screen, Post-Admission Evaluation, and Therapy Evaluations: PT will focus on increasing ambulation with walker and increasing strength OT will focus on regaining ADL independence Medical Prognosis: Good Anticipated Length of Stay: 7 days BEBETO OLIVAREZ DO Feb 26, 2019 10:58 POS
--- NOTE | 2019-02-26 11:31 | NUR ---
Initial visit completed with patient who was admitted to ARU 02/25/19 for chemotherapy neuropathy after initial hospitalization for pneumonia and debility. Patient has a history of lung cancer and indicates he is on an oral chemo treatment. He has been in a declined state from this illness/treatment along with other medical issues and challenges, intermittent hospitalizations as well as a short term stay in SNF/[facility]. Patient goal is to return to his home as before. Patient was residing alone with assistance from a private pay caregiver for meals and homemaker tasks. He indicates he was using his 4WW faithfully for ambulation after experiencing a fall a few weeks ago suffering a fractured thumb and bruising. He has home O2 established through [facility] and has a portable here for transport home. He states he has a main concentrator as well as several tanks at home and that if he needed to be upgraded from nocturnal to continuous O2 that would not be an issue. [employer] will update his provider with new orders as necessary. Patient PCP is Dr. Paredes, his utilizes both [facility] and [facility] pharmacies in [facility]. Patient has 6 children, none reside in close proximity. Demographics indicate his daughter Ary Sales (Katie) as his POA, patient stated he couldn't remember which child was his legal manufacturers representative. Luz apparently worked at [facility] and resides in [place], [place]. Will make contacts to confirm legals and family options for home support. The purpose of the Weekly Team Conference was discussed and patient indicated understanding.
--- NOTE | 2019-02-26 11:48 | Speech Therapy Daily Note ---
Speech Daily Progress Note Subjective Date Seen by Provider: Feb 26, 2019 Time Seen by Provider: 00:30 Patient was resting in bed following PT. He states he was tired after the therapy. Objective Patient completed general information questions with 75% given 25% cues and/or repetitions. Assessment Assessment Current Status: Good Progress Treatment Plan Continue Plan of Care Speech Short Term Goals Short Term Goals Short Term Goals 1) The patient will complete memory tasks related to his daily living skills at 90% or greater given 10% or less cues. 2) The patient will complete problem solving tasks related to his daily living skills at 90% or greater given 10% or less cues. 3) The patient will complete safety awareness tasks related to his daily living skills at 90% or greater given 10% or less cues. Speech Custodial Goals Clinical Courier Goals The patient will improve his cognitive-communication abilities in order to comp lete daily living tasks with minimal assist. Speech-Plan Patient/Family Goals Patient/Family Goals: Patient plans on returning home, however his discharge location will be discussed and determined by the rehab team. Treatment Plan Speech Therapy Treatment Plan: Continue Plan of Care Patient participates well with skilled ST therapy sessions. Treatment Duration: Mar 12, 2019 Frequency: 5 times per week Estimated Hrs Per Day: .5 hour per day Rehab Potential: Good (pt is motivated and compliant) Barriers to Learning: Cognitive deficits Pt/Family Agrees to Plan: Yes Safety Risks/Education Teaching Recipient: Patient Teaching Methods: Demonstration, Discussion Response to Teaching: Verbalize Understanding, Return Demonstration Education Topics Provided: Continued safety within his room. Time Speech Therapy Time In: 10:00 Speech Therapy Time Out: 10:30 Total Billed Time: 30 Billed Treatment Time 1[address] Feb 26, 2019 11:48 POS
--- NOTE | 2019-02-26 14:29 | Therapy Group Daily Note ---
Therapy Daily Group Note Patient Education Topic Home Safety Exercises LE Seated Exercise, UE Exercise Session Ratio (pt:therapist): 6:2 Goal of Session: Home Safety Strategies, UE/LE Strengthing Goal Met for this Session: Yes Pt Benefit of Group: Contributions to Others, F/U Use of Strategies @Home, Increased Functional Safety, Increased Functional Strength, Improved Cognition, Recognition of Peers, Socialization Other/Notes Pt ambulated using FWW to [facility] for OT/PT group. Group consisted of introductions (name, place living, favorite room), socialization, UE/LE seated exercises and educational topics over home safety environment/adaptive equipment. Pt introduced self appropriately and actively listened to peers. Pt was able to complete L UE/B LE exercises without difficulty, due to IV in R UE pt unable to complete exercises that bent elbow. Pt acknowledged understanding of educational topics with personal stories and strategies used at own home. After therapy, pt lying in bed with call light/phone in reach. All needs met in room. Start Time: 12:55 Stop Time: 14:10 Total Billed Treatment Time: 75 Total Billed Treatment 1-GRP GERMAIN BAR Feb 26, 2019 14:29 POS
--- NOTE | 2019-02-26 15:40 | Physical Therapy Daily Note ---
PT Daily Note-Current Subjective Pt agreeable to PT session, states he is feeling dizzy and shaky today, told doctor. Began c/o of nausea while in gym performing standing ex's and requesting to return to his room. Pain Numeric Pain Scale: 0-No Pain Appearance Pt up in chair awake and alert upon arrival. During session, requesting and assisted to restroom, washing hands and dentures. At end of session pt supine in bed, HOB elevated to comfort, call light phone and bedside table within reach. Pt requesting and Assist pt in requesting pain med from nursing with nurse stating pt is due for pain med a little after 10 am and will bring it to him then. Transfers SCALE: Activities may be completed with or without assistive devices. 4-Fvyddellaj-cjlnvvw completes the activity by him/herself with no assistance from a helper. 5-Set-up or Clean-up Assistance-helper sets up or cleans up; patient completes activity. [place] assists only prior to or following the activity. 4-Supervision or Touching Assistance-helper provides verbal cues and/or touching/steadying and/or contact guard assistance as patient completes activity. Assistance may be provided throughout the activity or intermittently. 3-Partial/Moderate Assistance-helper does LESS THAN HALF the effort. [place] lifts, holds or supports trunk or limbs, but provides less than half the effort. 2-Substantial/Maximal Assistance-helper does MORE THAN HALF the effort. [place] lifts or holds trunk or limbs and provides more than half the effort. 0-Cxpohwprz-yjiyye does ALL the effort. Patient does none of the effort to complete the activity. Or, the assistance of 2 or more helpers is required for the patient to complete the activity. If activity was not attempted, code reason: 7-Patient Refused. 9-Not Applicable-not attempted and the patient did not perform the activity before the current illness, exacerbation or injury. 10-Not Attempted due to Environmental Limitations-(lack of equipment, weather restraints, etc.). 88-Not Attempted due to Medical Conditions or Safety Concerns. Roll Left to Right (QC): 5 Sit to Lying (QC): 5 Sit to Stand (QC): 4 pt performing good techniques with sit to and from stand transfers after skilled instruction provided Weight Bearing Right Lower Extremity: Right Weight Bearing/Tolerated Left Lower Extremity: Left Weight Bearing/Tolerated Gait Training Does the Patient Walk?: Yes Distance: 20, 150 x2 Walk 10 feet (QC): 4 Walk 50 ft with 2 Turns(QC): 4 Walk 150 ft (QC): 4 Gait Persons Needed: 1 Gait Assistive Device: FWW R foot DF and sup, fast pace with inst to slow down for safety Exercises Seated Therapy Exercises: Ankle pumps (difficulty with coordination LLE), Sit to stand, Long arc quads (began to c/o R foot pain), Hip abd/add Seated Reps: 30 (performed with BLE's simultaneously to engage core and work on activity tolernace) Standing: Marching (high knee alt LE's on Airex with only RUE support to also work on balance), Mini squats (on airex with RUE support) Standing Reps: 20 ((+) static stance on Airex attempting no UE support x4 minutes, does require occasional use of UE's to regain balance) sitting rest required during all exercises Treatments education, safety, bed mobility, transfers, gait, strength, balance, functional mobility, activity tolerance Assessment Current Status: Good Progress PT Finisher Cold Rolling Goals Finisher Cold Rolling Goals PT Finisher Cold Rolling Goals Time Frame: Mar 20, 2019 Sit to Lying (QC): 6 Lying-Sitting on Side/Bed(QC): 6 Sit to Stand (QC): 6 Roll Left to Right (QC): 6 Chair/Xcm-mq-Bgnjg Xfer(QC): 6 Car Transfer (QC): 6 Walk 10 feet (QC): 6 Walk 10ft-Uneven Surface(QC): 6 Walk 50ft with 2 Turns (QC): 6 Walk 150 ft (QC): 6 Gait Assistive Device: FWW Wheel 50 feet with 2 turns (QC: 9 1 Step (curb) (QC): 4 4 Steps (QC): 9 12 Steps (QC): 9 Picking up an Object (QC): 9 PT Plan Treatment/Plan Treatment Plan: Continue Plan of Care Treatment Plan: Bed Mobility, Concurrent Therapy, Education, Functional Activity Herrera, Functional Strength, Group Therapy, Gait, Safety, Therapeutic Exercise, Transfers Frequency: Modified Program (IRF) (04/11) Estimated Hrs Per Day: 1.5 hours per day Patient and/or Family Agrees t: Yes Safety Risks/Education Patient Education: Gait Training, Transfer Techniques, Safety Issues Teaching Recipient: Patient Teaching Methods: Demonstration, Discussion Response to Teaching: Verbalize Understanding, Return Demonstration Time/GCodes Time In: 903 Time Out: 948 Total Billed Treatment Time: 45 Total Billed Treatment 1 visit, GT x15 min, EX x15, FA x15 min STEVE MONK CINDER CRUSHER OPERATOR Feb 26, 2019 15:39 POS
--- NOTE | 2019-02-26 16:31 | NUR ---
Reviewed weekly rehab team conference summary with patient. He stated physician advised he would not be released until his pneumonia was more resolved and he is in agreement to a continued stay with review on 03/05/19.
[2019-02-26 17:31] VITALS: BP 133/65
[2019-02-27] MEDS: ARTIFICAL TEARS 0.4 ML UNIT DOSE (REFRESH PLUS) OD SCH ×12 (01:25→22:00)
[2019-02-27] MEDS: PIPERACILLIN/TAZOBACTAM (BULK) 4.5 GM in NS (IVPB) 100 ML IV SCH ×3 (01:35→18:11)
[2019-02-27] MEDS: RT-ALBUTEROL/IPRATROPIUM 3 ML (DUONEB) VIAL INH SCH ×6 (03:03→21:47)
[2019-02-27 05:16] VITALS: BP 118/71
[2019-02-27] MEDS: MULTIVIT W/MINERALS TAB (THERAGRAN M) PO SCH (06:45)
[2019-02-27] MEDS: KCL 20 MEQ TAB (K-DUR) PO SCH (06:45)
[2019-02-27] MEDS: PANTOPRAZOLE 20 MG TABLET (PROTONIX) PO SCH (06:45)
[2019-02-27] MEDS: PARoxetine 20 MG (PAXIL) TAB PO SCH (08:08)
[2019-02-27] MEDS: GABAPENTIN 300 MG (NEURONTIN) CAP PO SCH ×3 (08:08→20:04)
[2019-02-27] MEDS: LORATADINE (CLARITIN) 10 MG TAB PO SCH (08:08)
[2019-02-27] MEDS: ASCORBIC ACID (VIT C) 500 MG TABLET PO SCH (08:08)
[2019-02-27] MEDS: amLODIPine 10 MG (NORVASC) TAB PO SCH (08:08)
[2019-02-27] MEDS: TAMSULOSIN 0.4 MG (FLOMAX) CAP PO SCH (08:08)
[2019-02-27] MEDS: SENNA W/DOCUSATE (SENOKOT S) TABLET PO SCH ×2 (08:09→20:04)
--- NOTE | 2019-02-27 08:44 | Speech Therapy Daily Note ---
Speech Daily Progress Note Subjective Date Seen by Provider: Feb 27, 2019 Time Seen by Provider: 00:30 Patient sitting up in his chair and drinking his coffee when I entered his room. Objective Patient completed a series of problem solving tasks with cards related to various situations at 80% with 25% verbal cues and/or repetitions. Assessment Assessment Current Status: Good Progress Treatment Plan Continue Plan of Care Speech Short Term Goals Short Term Goals Short Term Goals 1) The patient will complete memory tasks related to his daily living skills at 90% or greater given 10% or less cues. 2) The patient will complete problem solving tasks related to his daily living skills at 90% or greater given 10% or less cues. 3) The patient will complete safety awareness tasks related to his daily living skills at 90% or greater given 10% or less cues. Speech Port Traffic Manager Goals Port Traffic Manager Goals The patient will improve his cognitive-communication abilities in order to complete daily living tasks with minimal assist. Speech-Plan Patient/Family Goals Patient/Family Goals: Patient plans on returning home alone, however he will most likely live with family or SNF due to his medical status. Treatment Plan Speech Therapy Treatment Plan: Continue Plan of Care Patient is always pleasant and willing to work hard. Treatment Duration: Mar 12, 2019 Frequency: 5 times per week Estimated Hrs Per Day: .5 hour per day Rehab Potential: Good (pt is motivated and compliant) Barriers to Learning: Patient has cognitive deficits. Pt/Family Agrees to Plan: Yes Safety Risks/Education Teaching Recipient: Patient Teaching Methods: Demonstration, Discussion Response to Teaching: Verbalize Understanding, Return Demonstration Education Topics Provided: Continued safety within his room and communication of wants and needs. Time Speech Therapy Time In: 08:30 Speech Therapy Time Out: 09:00 Total Billed Time: 30 Billed Treatment Time 1, LIEN Marcos Feb 27, 2019 08:44 POS
--- NOTE | 2019-02-27 08:46 | Pulmonary Consultation ---
History of Present Illness History of Present Illness Date of Consultation 02/27/19 08:41 Time Seen by Provider: 08:41 Date of Admission History of Present Illness 78yo with hx of lung cancer with hx of multiple hospitalzations for respiratory failrue, COPDAE admitted to [facility] rehab for rehabilitation. PT has hx of severe oxygen dependent COPD. Dr. Sullivan is consulting dc for pulmonary management. Allergies and Home Medications Allergies Coded Allergies: baclofen (Verified Allergy, Unknown, 11/24/18) metoclopramide (Verified Allergy, Unknown, 11/24/18) Home Medications Afatinib Dimaleate 30 Mg Tablet, 30 MG PO DAILY, (Reported) TAKES 1ST THING IN THE MORNING Amlodipine Besylate 10 Mg Tablet, 10 MG PO DAILY, (Reported) Ascorbic Acid 500 Mg Tablet, 500 MG PO DAILY, (Reported) Carboxymethylcellulose Sodium 15 Ml Drops, 1 DROP OD Q2H, (Reported) Fentanyl 1 Each Patch.td72, 100 MCG TD Q72H, (Reported) LAST TIME PATCH WAS APPLIED WAS 02-23-2019 BEFORE HOSPITALIZATION Gabapentin 300 Mg Capsule, 600 MG PO TID, (Reported) TAKES 2 (300MG) CAPSULES Loratadine 10 Mg Tablet, 10 MG PO DAILY, (Reported) Mineral Oil/Petrolatum,White 3.5 Gm Oint...g., OD HS, (Reported) Multivitamin 1 Each Tablet, 1 TAB PO DAILY, (Reported) Nystatin 15 Gm Cream..g., TOP BID PRN for RASH, (Reported) Omeprazole 20 Mg Capsule.dr, 20 MG PO DAILY, (Reported) Ondansetron 4 Mg Tab.rapdis, 4 MG PO Q8H PRN for NAUSEA/VOMITING-1ST LINE, (Reported) Oxycodone HCl 5 Mg Tablet, 5 MG PO Q6H PRN for PAIN-SEVERE, (Reported) Paroxetine HCl 20 Mg Tablet, 20 MG PO DAILY, (Reported) Potassium Chloride 10 Meq Tab.er.prt, 20 MEQ PO DAILY, (Reported) TAKES 2 (10MEQ) TABLETS Tamsulosin HCl 0.4 Mg Cap, 0.4 MG PO DAILY, (Reported) Triamcinolone Acet 15 Gm Cr, 1 EA TOP UD PRN for ITCHING, (Reported) Umeclidinium Brm/Vilanterol Tr 1 Each Blst.w.dev, 1 PUFF IH DAILY, (Reported) Past Pylilvy-Qxqgrx-Dfctbd Hx Past Med/Social Hx: Reviewed Nursing Past Med/Soc Hx, Reviewed and Corrections made Patient Social History Alcohol Use: Occasionally Uses Number of Drinks Today: AA Alcohol Beverage of Choice: Beer, Whiskey Recreational Drug Use: Yes Smoking Status: Former Smoker Type Used: Cigarettes Former Smoker, Quit: Apr 23, 1969 2nd Hand Smoke Exposure: No Recent Foreign Travel: No Contact w/Someone Who Travel: No Recent Infectious Disease Expo: No Recent Hopitalizations: No Immunizations Up To Date Tetanus Booster (TDap): Unknown PED Vaccines UTD: Yes Date of Pneumonia Vaccine: Feb 04, 2016 Date of Influenza Vaccine: Jan 09, 2018 Seasonal Allergies Seasonal Allergies: Yes Past Medical History Surgeries: Yes (Past hx of Suprapubic catheter, L TKR, Neuro stimulator placed and removed) Eye Surgery, Gallbladder, Joint Replacement, Orthopedic Respiratory: Yes (has home 02, has only used once in 2 years) Pneumonia, COPD Currently Using CPAP: No Currently Using BIPAP: No Cardiac: Yes Hypertension Neurological: Yes Concussion, Neuropathy, Traumatic Brain Injury Genitourinary: Yes (urinary incontinence, past hx of Suprapubic catheter, prostate problems) Prostate Problems, UTI-Chronic Gastrointestinal: Yes (on Iron replacement, Hx of abnormal LFT's) Abdominal Hernia, Gastrointestinal Bleed Musculoskeletal: Yes (chronic pain lower ext from trauma, run over by a tractor) Arthritis, Back Injury, Chronic Back Pain Endocrine: No HEENT: Yes (dry eyes, doesn't make tears) Loss of Vision: Right Hearing Impairment: Hard of Hearing, Hearing Aide Right, 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 8.0oz. [id number]; 22.11 BMI Method:Stated Exam Exam Vital Signs Date Time Temp Pulse Resp B/P (MAP) Pulse Ox O2 Delivery O2 Flow Rate FiO2 02/27/19 07:02 92 Nasal Cannula 4.00 02/27/19 05:16 36.8 86 14 118/71 (87) 91 Nasal Cannula 3.00 02/27/19 03:03 91 Nasal Cannula 3.00 02/26/19 21:00 Nasal Cannula 3.00 02/26/19 17:31 37.0 86 18 133/65 (87) 97 Nasal Cannula 3.00 02/26/19 14:43 94 Nasal Cannula 3.00 02/26/19 12:00 36.5 02/26/19 10:39 95 Nasal Cannula 3.00 02/26/19 09:00 Nasal Cannula 3.00 I & O 02/27/19 07:00 Intake Total 2050 ml Output Total 875 ml Balance 1175 ml Height & Weight Height: 5'11.00" Weight: 165lbs. 8.0oz. 74.270245hl; 22.11 BMI Method:Stated General Appearance: No Apparent Distress, Anxious, Chronically ill, Thin HEENT: PERRL/EOMI, Normal ENT Inspection, Pharynx Normal Neck: Full Range of Motion, Normal Inspection, Non Tender, Supple, Carotid Bruit Respiratory: Chest Non Tender, No Accessory Muscle Use, No Respiratory Distress, Crackles, Decreased Breath Sounds Cardiovascular: Regular Rate, Rhythm, No Edema, No Gallop, No JVD, No Murmur, Normal Peripheral Pulses Extremity: Normal Capillary Refill, Normal Inspection, Normal Range of Motion, Non Tender, No Calf Tenderness, No Pedal Edema Neurologic/Psychiatric: Alert, Oriented x3, No Motor/Sensory Deficits, Normal Mood/Affect, Motor Weakness (generalized weakness legs) Skin: Normal Color, Warm/Dry Lymphatic: No Adenopathy Results Lab Laboratory Tests 02/26/19 06:20 Assessment/Plan Assessment/Plan Oxygen Dependent COPD -Continue Duoneb -Start Advair -Oxygen -Check CXR Hx of lung cancer BRAULIO HINKLE DO Feb 27, 2019 08:46 POS
--- NOTE | 2019-02-27 09:07 | Physical Therapy Daily Note ---
PT Daily Note-Current Subjective Pt agreeable to PT session. Reports no new c/o's, is feeling a little better today than he was yesterday. Nsg states pt O2 desting last night and was increased fro 3 to 4L/NC. Pain Numeric Pain Scale: 0-No Pain Comment: report of occasional brief intermittent pain L side where hernia is Appearance Pt sitting up in chair, awake and alert. Requesting to put on shoes and shirt, pt demo ability with set up help only. At end of session, pt requesting and assisted to bathroom, call light within reach, nursing present Mental Status Patient Orientation: Person, Place, Time, Eyes Open, Situation Attachments: Oxygen (4L/NC ) Transfers SCALE: Activities may be completed with or without assistive devices. 0-Ztndudndal-tsuebeg completes the activity by him/herself with no assistance from a helper. 5-Set-up or Clean-up Assistance-helper sets up or cleans up; patient completes activity. Mobile assists only prior to or following the activity. 4-Supervision or Touching Assistance-helper provides verbal cues and/or touching/steadying and/or contact guard assistance as patient completes activity. Assistance may be provided throughout the activity or intermittently. 3-Partial/Moderate Assistance-helper does LESS THAN HALF the effort. Mobile lifts, holds or supports trunk or limbs, but provides less than half the effort. 2-Substantial/Maximal Assistance-helper does MORE THAN HALF the effort. Mobile lifts or holds trunk or limbs and provides more than half the effort. 4-Hfiwmumnf-kctgvq does ALL the effort. Patient does none of the effort to complete the activity. Or, the assistance of 2 or more helpers is required for the patient to complete the activity. If activity was not attempted, code reason: 7-Patient Refused. 9-Not Applicable-not attempted and the patient did not perform the activity before the current illness, exacerbation or injury. 10-Not Attempted due to Environmental Limitations-(lack of equipment, weather restraints, etc.). 88-Not Attempted due to Medical Conditions or Safety Concerns. Sit to Stand (QC): 4 (CGA to SBA, pt demo safe technique with skilled inst on hand and body placement) Weight Bearing Right Lower Extremity: Right Weight Bearing/Tolerated Left Lower Extremity: Left Weight Bearing/Tolerated Gait Training Does the Patient Walk?: Yes Distance: 350, 200 Walk 10 feet (QC): 4 Walk 50 ft with 2 Turns(QC): 4 Walk 150 ft (QC): 4 Gait Persons Needed: 1 Gait Assistive Device: FWW fair pace, no LOB, slight path deviation, RLE IR/supination, SPO2 maintained mid to high 90's Exercises NuStep Minutes: 15 NuStep Workload: 6 (arms 10, seat 10) Neuromuscular standing on Airex in // bars: static stance without UE support x4 minutes shaky and unsteady, CGA provided, occasional use of UE to correct balance, no outside physical assist required, less use of UE's this date compared to yesterday. High knee june on airex unilat UE support 3x10. mini squats x20 attempting no UE support but requiring at least unilat pt report of greatly increased R knee and LE pain with squats Treatments AM:Education, gait, transfer, safety, balance, strength, step, activity tolerance, functional mobility PM session: transfer training, gait training with FWW 4L O2/NC, balance exercises in // bars with BUE support stepping over objects fwd and backward. Assessment Current Status: Good Progress Pt maintaining SPO2 levels while on 4L O2/NC throughout tx session at 94-98%. PT [facility] Goals [facility] Goals PT [facility] Goals Time Frame: Mar 20, 2019 Sit to Lying (QC): 6 Lying-Sitting on Side/Bed(QC): 6 Sit to Stand (QC): 6 Roll Left to Right (QC): 6 Chair/Uab-xd-Nqbsp Xfer(QC): 6 Car Transfer (QC): 6 Walk 10 feet (QC): 6 Walk 10ft-Uneven Surface(QC): 6 Walk 50ft with 2 Turns (QC): 6 Walk 150 ft (QC): 6 Gait Assistive Device: FWW Wheel 50 feet with 2 turns (QC: 9 1 Step (curb) (QC): 4 4 Steps (QC): 9 12 Steps (QC): 9 Picking up an Object (QC): 9 PT Plan Treatment/Plan Treatment Plan: Continue Plan of Care Treatment Plan: Bed Mobility, Concurrent Therapy, Education, Functional Activity Herrera, Functional Strength, Group Therapy, Gait, Safety, Therapeutic Exercise, Transfers Treatment Duration: Feb 26, 2019 Frequency: Modified Program (IRF) (15/7) Estimated Hrs Per Day: 1.5 hours per day Patient and/or Family Agrees t: Yes Safety Risks/Education Patient Education: Gait Training, Transfer Techniques, Safety Issues Teaching Recipient: Patient Teaching Methods: Demonstration, Discussion Response to Teaching: Verbalize Understanding, Return Demonstration, Reinforcement Needed Time/GCodes Time In: 859 (PM: 1300) Time Out: 957 (PM: 1325) Total Billed Treatment Time: 58 (PM:25) Total Billed Treatment AM: 1 visit, GT x25 min, EX x33 min PM: 1 visit, GT x10 min, EX x15 min STEVE MONK PTA Feb 27, 2019 09:07 POS
--- NOTE | 2019-02-27 10:06 | PM&R Progress Note ---
Subjective HPI/CC On Admission Date Seen by Provider: Feb 27, 2019 Time Seen by Provider: 08:30 Subjective/Events-last exam Pt doing pretty well. Restarting IV. Remains at 4 Liters per minute so Dr. Rodríguez will be consulted. Denies any SOB or cough. Overall remains very stable. 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 of Systems General: Fatigue Pulmonary: Dyspnea, Cough Objective Exam Vital Signs Vital Signs Date Time Temp Pulse Resp B/P (MAP) Pulse Ox O2 Delivery O2 Flow Rate FiO2 02/27/19 16:28 36.6 71 16 123/69 (87) 97 Nasal Cannula 4.00 02/27/19 15:17 36 Capillary Refill : General Appearance: No Apparent Distress, Anxious, Chronically ill, Thin HEENT: PERRL/EOMI, Normal ENT Inspection, Pharynx Normal Neck: Full Range of Motion, Normal Inspection, Non Tender, Supple, Carotid Bruit Respiratory: Chest Non Tender, No Accessory Muscle Use, No Respiratory Distress, Crackles, Decreased Breath Sounds Cardiovascular: Regular Rate, Rhythm, No Edema, No Gallop, No JVD, No Murmur, Normal Peripheral Pulses Gastrointestinal: Normal Bowel Sounds, No Organomegaly, No Pulsatile Mass, Non Tender, Soft Back: Normal Inspection, No CVA Tenderness, No Vertebral Tenderness Extremity: Normal Capillary Refill, Normal Inspection, Normal Range of Motion, Non Tender, No Calf Tenderness, No Pedal Edema Neurologic/Psychiatric: Alert, Oriented x3, No Motor/Sensory Deficits, Normal Mood/Affect, Motor Weakness (generalized weakness legs) Skin: Normal Color, Warm/Dry Lymphatic: No Adenopathy Results/Procedures Lab Patient resulted labs reviewed. FIM Transfers Therapy Code Descriptions/Definitions Functional [place] Measure: 0=Not Assessed/NA 4=Minimal Assistance 1=Total Assistance 5=Supervision or Setup 2=Maximal Assistance 6=Modified [place] 3=Moderate Assistance 7=Complete IndependenceSCALE: Activities may be completed with or without assistive devices. 2-Xruvvwomkh-iswqohl completes the activity by him/herself with no assistance from a helper. 5-Set-up or Clean-up Assistance-helper sets up or cleans up; patient completes activity. [place] assists only prior to or following the activity. 4-Supervision or Touching Assistance-helper provides verbal cues and/or touching/steadying and/or contact guard assistance as patient completes activity. Assistance may be provided throughout the activity or intermittently. 3-Partial/Moderate Assistance-helper does LESS THAN HALF the effort. [place] lifts, holds or supports trunk or limbs, but provides less than half the effort. 2-Substantial/Maximal Assistance-helper does MORE THAN HALF the effort. [place] lifts or holds trunk or limbs and provides more than half the effort. 9-Rjsrtobpe-pjfvpo does ALL the effort. Patient does none of the effort to complete the activity. Or, the assistance of 2 or more helpers is required for the patient to complete the activity. If activity was not attempted, code reason: 7-Patient Refused. 9-Not Applicable-not attempted and the patient did not perform the activity before the current illness, exacerbation or injury. 10-Not Attempted due to Environmental Limitations-(lack of equipment, weather restraints, etc.). 88-Not Attempted due to Medical Conditions or Safety Concerns. Roll Left to Right (QC): 5 Sit to Lying (QC): 5 Sit to Stand (QC): 4 (CGA to SBA, pt demo safe technique with skilled inst on hand and body placement) Chair/Vuz-as-Dmvxp Xfer(QC): 3 Car Transfer (QC): 3 (asssist with standing to turn and to sit for safety and steadying assist. ) Gait Training Does the Patient Walk?: Yes Distance (FIM): 2=639-82 ft Distance: 20, 150 x2 Walk 10 feet (QC): 4 Walk 50 ft with 2 Turns(QC): 4 Walk 150 ft (QC): 4 Walking 10ft/uneven surface-QC: 3 Gait Persons Needed: 1 Gait Assistive Device: FWW Wheelchair Training Does the Pt Use a Wheelchair?: No Wheel 50 ft with 2 turns (QC): 9 Wheel 150 ft (QC): 9 Stair Training 1 Step (curb) (QC): 3 (min assist for balance and lifting assist at the gait belt) 4 Steps (QC): 88 12 Steps (QC): 88 Balance Picking up an Object (QC): 88 ADL-Treatment Eating (QC): 6 (per nursing report) Upper Body Dressing (QC): 5 Lower Body Dressing (QC): 3 On/Off Footwear (QC): 3 Toileting Hygiene (QC): 3 Toilet Transfer (QC): 3 Assessment/Plan Assessment and Plan Assess & Plan/Chief Complaint Assessment: Chemotherapy weakness Pneumonia Hypoxia Lung cancer HTN Chronic pain Plan: 04/11 IRF Monitor weakness closely (1) Generalized weakness Status: Acute (2) Left upper lobe pneumonia Status: Acute (3) Nausea & vomiting Status: Resolved Resolution Date/Time: 11/18/18 @ 15:27 (4) Urinary incontinence (5) Hypokalemia Status: Acute (6) DVT prophylaxis Status: Acute (7) Essential (primary) hypertension Status: Chronic (8) Anemia (9) Myopathy (10) Lung cancer Status: Chronic (11) Debility Status: Chronic (12) Chronic pain Status: Chronic (13) TBI (traumatic brain injury) Status: Chronic (14) RESPIRATORY FAILURE, UNSP, UNSP W HYPOXIA OR HYPERCAPNIA Status: Acute BEBETO OLIVAREZ DO Feb 27, 2019 10:06 POS
[2019-02-27] MEDS: ENOXAPARIN 40 MG/0.4 ML (LOVENOX) SYR SC SCH (10:15)
--- NOTE | 2019-02-27 11:51 | Occupational Ther Daily Note ---
OT Current Status-Daily Note Subjective Pt seen in room, up in recliner, agreeable to OT. No pain mentioned. Appearance Alert, cooperative ADL-Treatment Pt wanted to wash off with wipes and change clothes. Able to change shirt without help. SBA to stand to manage pants and wash bottom, FWW. Managed slipper socks with setup. No LOB observed. Therapy Code Descriptions/Definitions Functional [place] Measure: 0=Not Assessed/NA 4=Minimal Assistance 1=Total Assistance 5=Supervision or Setup 2=Maximal Assistance 6=Modified [place] 3=Moderate Assistance 7=Complete IndependenceSCALE: Activities may be completed with or without assistive devices. 8-Qccwyohjtp-znbhmkh completes the activity by him/herself with no assistance from a helper. 5-Set-up or Clean-up Assistance-helper sets up or cleans up; patient completes activity. [place] assists only prior to or following the activity. 4-Supervision or Touching Assistance-helper provides verbal cues and/or touc alvin/steadying and/or contact guard assistance as patient completes activity. Assistance may be provided throughout the activity or intermittently. 3-Partial/Moderate Assistance-helper does LESS THAN HALF the effort. [place] lifts, holds or supports trunk or limbs, but provides less than half the effort. 2-Substantial/Maximal Assistance-helper does MORE THAN HALF the effort. [place] lifts or holds trunk or limbs and provides more than half the effort. 0-Evkgebzpb-xqadgj does ALL the effort. Patient does none of the effort to complete the activity. Or, the assistance of 2 or more helpers is required for the patient to complete the activity. If activity was not attempted, code reason: 7-Patient Refused. 9-Not Applicable-not attempted and the patient did not perform the activity before the current illness, exacerbation or injury. 10-Not Attempted due to Environmental Limitations-(lack of equipment, weather restraints, etc.). 88-Not Attempted due to Medical Conditions or Safety Concerns. Shower/Bathe Self (QC): 4 (SBA) Upper Body Dressing (QC): 5 Lower Body Dressing (QC): 4 (SBA, FWW) Other Treatment Pt walked to gym area with SBA, FWW, with help to manage O2 tank and IV pole. O2 at 4 L/min. Pt completed 12 minutes bilat UE exercise with arm bike set at 15W resistance, taking brief recovery breaks every 3 minutes. Pt educ on pacing himself for energy conservation. Also completed nuts and bolts UE activity with no additional weight on arms. These are to strengthen arms to help with transfers and standing during ADLs. Pt got up from chair with arms with SBA and walked back to room, FWW with SBA for safety and help with O2 tank and IV. Pt got into recliner with SBA. Pt left up in chair, all needs met, O2 and IV in place. Education OT Patient Education: Energy conservation, Modified ADL techniques, Progress toward Goal/Update tx plan, Purpose of tx/functional activities Teaching Recipient: Patient Teaching Methods: Discussion Response to Teaching: Verbalize Understanding, Return Demonstration OT Short Term Goals Short Term Goals 1=Demonstrate adherence to instructed precautions during ADL tasks. 2=Patient will verbalize/demonstrate understanding of assistive devices/mo difications for ADL. 3=Patient will improve strength/tolerance for activity to enable patient to perform ADL's. OT Liturgical Music Director Goals Senior Living Goals Time Frame: Mar 18, 2019 Eating (QC): 6 Oral Hygiene (QC): 6 Shower/Bathe Self (QC): 5 Upper Body Dressing (QC): 6 Lower Body Dressing (QC): 6 On/Off Footwear (QC): 6 Toileting Hygiene (QC): 6 Toilet/Commode Transfer (QC): 6 Additional Goals: 1-Demonstrate ADL Tasks, 2-Verbalize Understanding, 3- ImproveStrength/[place] 1=Demonstrate adherence to instructed precautions during ADL tasks. 2=Patient will verbalize/demonstrate understanding of assistive devices/modifications for ADL. 3=Patient will improve strength/tolerance for activity to enable patient to perform ADL's. OT Education/Plan Problem List/Assessment Pt demonstrates decreased ADL functioning, mobility, strength, and activity tolerance. Pt to benefit from skilled OT intervention for ADL training, transfers, strengthening, and safety education to increase level of independence and allow safe discharge plan. Discharge Recommendations Plan/Recommendations: Continue POC Treatment Plan/Plan of Care Patient would benefit from OT for education, treatment and training to promote independence in ADL's, mobility, safety and/or upper extremity function for ADL's. Plan of Care: ADL Retraining, Functional Mobility, Group Exercise/Act as Ind, UE Funct Exercise/Act Treatment Duration: Mar 18, 2019 Frequency: Modified Program (IRF) (04/11) Estimated Hrs Per Day: 1.5 hours per day Rehab Potential: Good (pt is motivated and compliant) Time/GCodes Start Time: 10:00 Stop Time: 11:00 Total Time Billed (hr/min): 60 Billed Treatment Time visit, 20 minutes ADL, 40 minutes exercise RIZWAN MORA OT Feb 27, 2019 11:51 POS
--- NOTE | 2019-02-27 12:00 | Diagnostic Imaging Report ---
INDICATION: Shortness of breath FINDINGS: Air trapping and COPD chronic. No failure, effusion or pneumothorax. Spinal stimulators unchanged from prior. IMPRESSION: Chronic changes in the lungs and post interventional sequelae. No acute appearing abnormality or change apparent. Dictated by: Dictated on workstation # [id number]
--- NOTE | 2019-02-27 13:49 | Occupational Ther Daily Note ---
OT Current Status-Daily Note Subjective Pt seen in room, up in recliner, agreeable to OT. No pain mentioned. Appearance Alert, cooperative ADL-Treatment Therapy Code Descriptions/Definitions Functional [place] Measure: 0=Not Assessed/NA 4=Minimal Assistance 1=Total Assistance 5=Supervision or Setup 2=Maximal Assistance 6=Modified [place] 3=Moderate Assistance 7=Complete IndependenceSCALE: Activities may be completed with or without assistive devices. 6-Njccigzksr-lcqadpi completes the activity by him/herself with no assistance from a helper. 5-Set-up or Clean-up Assistance-helper sets up or cleans up; patient completes activity. [place] assists only prior to or following the activity. 4-Supervision or Touching Assistance-helper provides verbal cues and/or touching/steadying and/or contact guard assistance as patient completes acti vity. Assistance may be provided throughout the activity or intermittently. 3-Partial/Moderate Assistance-helper does LESS THAN HALF the effort. [place] lifts, holds or supports trunk or limbs, but provides less than half the effort. 2-Substantial/Maximal Assistance-helper does MORE THAN HALF the effort. [place] lifts or holds trunk or limbs and provides more than half the effort. 7-Ekkwipssr-azcxkm does ALL the effort. Patient does none of the effort to complete the activity. Or, the assistance of 2 or more helpers is required for the patient to complete the activity. If activity was not attempted, code reason: 7-Patient Refused. 9-Not Applicable-not attempted and the patient did not perform the activity before the current illness, exacerbation or injury. 10-Not Attempted due to Environmental Limitations-(lack of equipment, weather restraints, etc.). 88-Not Attempted due to Medical Conditions or Safety Concerns. Other Treatment Pt completed 10 reps various bilat UE exercises with yellow theraband (gentle resistance). Pt educ on the different exercises and occasional skilled cues to do each exercise correctly. Focus on muscle groups needed for transfers and standing during ADLs. Pt return demo a couple exercises that he can do on his own. Pt left up in recliner, all needs met. Education OT Patient Education: Exercise program, Progress toward Goal/Update tx plan, Purpose of tx/functional activities Teaching Recipient: Patient Teaching Methods: Demonstration, Discussion Response to Teaching: Verbalize Understanding, Return Demonstration, Reinforcement Needed OT Short Term Goals Short Term Goals 1=Demonstrate adherence to instructed precautions during ADL tasks. 2=Patient will verbalize/demonstrate understanding of assistive d evices/modifications for ADL. 3=Patient will improve strength/tolerance for activity to enable patient to perform ADL's. OT Director Data Analytics Goals Shelter Goals Time Frame: Mar 18, 2019 Eating (QC): 6 Oral Hygiene (QC): 6 Shower/Bathe Self (QC): 5 Upper Body Dressing (QC): 6 Lower Body Dressing (QC): 6 On/Off Footwear (QC): 6 Toileting Hygiene (QC): 6 Toilet/Commode Transfer (QC): 6 Additional Goals: 1-Demonstrate ADL Tasks, 2-Verbalize Understanding, 3- ImproveStrength/[place] 1=Demonstrate adherence to instructed precautions during ADL tasks. 2=Patient will verbalize/demonstrate understanding of assistive devices/modifications for ADL. 3=Patient will improve strength/tolerance for activity to enable patient to perform ADL's. OT Education/Plan Problem List/Assessment Pt demonstrates decreased ADL functioning, mobility, strength, and activity tolerance. Pt to benefit from skilled OT intervention for ADL training, transfers, strengthening, and safety education to increase level of independence and allow safe discharge plan. Discharge Recommendations Plan/Recommendations: Continue POC Treatment Plan/Plan of Care Patient would benefit from OT for education, treatment and training to promote independence in ADL's, mobility, safety and/or upper extremity function for ADL's. Plan of Care: ADL Retraining, Functional Mobility, Group Exercise/Act as Ind, UE Funct Exercise/Act Treatment Duration: Mar 18, 2019 Frequency: Modified Program (IRF) (04/11) Estimated Hrs Per Day: 1.5 hours per day Rehab Potential: Good (pt is motivated and compliant) Time/GCodes Start Time: 13:30 Stop Time: 13:45 Total Time Billed (hr/min): 15 Billed Treatment Time visit, 15 minutes exercise RIZWAN MORA OT Feb 27, 2019 13:49 POS
--- NOTE | 2019-02-27 14:30 | NUR ---
STATES 3 LOOSE STOOLS TODAY, BUT DENIES STOMACH UPSET. NO PAIN PRESENTLY, BUT STATES "IT COMES ON QUICKLY". O2 ON AT 4L. DENIES SOB.
[2019-02-27 15:17] VITALS: BP 118/71
[2019-02-27 16:28] VITALS: BP 123/69
--- NOTE | 2019-02-27 18:00 | NUR ---
EXTENSION TUBING PUT ON OXYGEN AND INFORMED NEEDS TO WEAR OXYGEN WHEN GETTING UP TO BATHROOM. O2 REMAINS AT 4L.
--- NOTE | 2019-02-27 18:28 | NUR ---
DR. PONCE HERE TO WORK ON TOENAILS.
[2019-02-27] MEDS ORDERED: CATHETER FLUSH 10 ML SYR IV PRN (18:30)
--- NOTE | 2019-02-27 19:31 | CONSULTATION REPORT ---
DATE OF SERVICE: HISTORY OF PRESENT ILLNESS: The patient was admitted to the hospital secondary to pneumonia and lung cancer. The patient has difficulty reaching for and caring for his feet. He is complaining about neuropathy extending from approximately the lower knee down to the foot, especially on the right. He reports that he has had a nerve conduction velocity testing performed in the past and was told that he likely had a pinched nerve in his back. He has had a stimulation performed with some relief. Otherwise, he is taking oxycodone, gabapentin and fentanyl patches to cope with the activities of daily living. The patient is like I said unable to reach and care for his feet and he has extremely long and uncomfortable toenails bilaterally. PAST MEDICAL HISTORY: Includes pneumonia, chronic debility, lung cancer, has a history of chemotherapy, hypertension, neuropathy, history of TBI, depression, GERD, chronic pain, chronic incontinence. SOCIAL HISTORY: The patient has occasional alcohol use. He is a former smoker. PAST SURGICAL HISTORY: Include a suprapubic catheter, neuro stimulation was placed and removed, eye surgery, cholecystectomy, joint replacement by orthopedic, left TKR. FAMILY HISTORY: Heart disease, cancer, and hypertension. CURRENT MEDICATIONS: Listed on the patient's chart. ALLERGIES: HE IS ALLERGIC TO BACLOFEN AND METOCLOPRAMIDE. PHYSICAL EXAMINATION: EXTREMITIES: On lower extremity examination the patient has 1/4 dorsalis pedis pulse on the right, 2/4 on the left, 1/4 posterior tibial pulse on the right, 2/4 posterior tibial pulse on the left. Cap refill time is less than 3 seconds. No digital hair growth, thin skin, cool skin, temperature noted to the digits bilaterally. NEUROLOGICAL: The patient has diminished vibratory sensation bilaterally. Diminished deep tendon reflexes to the Achilles tendon bilaterally as well as diminished protective sensation with 10 g monofilament wire examination bilaterally. DERMATOLOGIC: The patient has a thick yellow dystrophic toenail with subungual debris associated with the R1, 2, 3, 5, L1, 2, 4 digits. There is no nail plate noted to the left third and fifth digits. No erythema, edema, or gross signs of bacterial infection at this time. MUSCULOSKELETAL FINDINGS: The patient has 4/5 muscle strength to the four major quadrants of the foot. He has contracted toes 2 through 5 digits bilaterally. Lateral deviation to the hallux bilaterally. ASSESSMENT: Idiopathic neuropathy, onychomycosis, Hammer digit syndrome. PLAN: Various treatment options were discussed with the patient. The patient indicates that he is doing well with the fentanyl patches as well as the gabapentin for now. Long-term pain management would be appropriate for this patient. The toenails were debrided today manually and mechanically. Betadine applied. We also recommend appropriate shoes and arch support for this particular patient. Of course, they should be extra-depth shoes. The patient is welcome to follow up in my office upon discharge. Job ID: [id number] DocumentID: [id number] Dictated Date: 02/27/2019 18:43:04 Health Technician Date: 02/27/2019 19:30:49 Dictated By: BARBARA DIEGO
[2019-02-27] MEDS: RT-ADVAIR HFA 115/21 MCG PER PUFF IH SCH (20:18)
[2019-02-27] MEDS: CATHETER FLUSH 10 ML SYR IV SCH (22:06)
[2019-02-28] MEDS: PIPERACILLIN/TAZOBACTAM (BULK) 4.5 GM in NS (IVPB) 100 ML IV SCH ×3 (01:50→18:31)
[2019-02-28] MEDS: ARTIFICAL TEARS 0.4 ML UNIT DOSE (REFRESH PLUS) OD SCH ×12 (02:00→20:10)
[2019-02-28] MEDS: RT-ALBUTEROL/IPRATROPIUM 3 ML (DUONEB) VIAL INH SCH ×7 (03:19→21:47)
[2019-02-28] MEDS: MULTIVIT W/MINERALS TAB (THERAGRAN M) PO SCH (05:50)
[2019-02-28] MEDS: KCL 20 MEQ TAB (K-DUR) PO SCH (05:50)
[2019-02-28] MEDS: PANTOPRAZOLE 20 MG TABLET (PROTONIX) PO SCH (05:50)
[2019-02-28] MEDS: CATHETER FLUSH 10 ML SYR IV SCH ×3 (05:51→19:59)
[2019-02-28 06:23] VITALS: BP 132/66
--- NOTE | 2019-02-28 06:54 | Pulmonary Progress Note ---
Subjective Time Seen by a Provider: 06:53 Subjective/Events-last exam No complications noted. Sepsis Event Evaluation Height, Weight, BMI Height: 5'11.00" Weight: 165lbs. 8.0oz. 74.630686vi; 22.11 BMI Method:Stated Exam Exam Vital Signs Date Time Temp Pulse Resp B/P (MAP) Pulse Ox O2 Delivery O2 Flow Rate FiO2 02/28/19 06:23 36.8 71 18 132/66 (88) 95 Nasal Cannula 4.00 02/28/19 03:21 92 Nasal Cannula 4.00 02/27/19 21:47 94 Nasal Cannula 4.00 02/27/19 21:00 94 Nasal Cannula 4.00 02/27/19 18:00 Nasal Cannula 4.00 02/27/19 16:28 36.6 71 16 123/69 (87) 97 Nasal Cannula 4.00 02/27/19 15:37 97 Nasal Cannula 4.00 02/27/19 15:17 36.8 79 92 36 02/27/19 11:10 95 Nasal Cannula 4.00 02/27/19 09:00 Nasal Cannula 3.00 02/27/19 07:02 92 Nasal Cannula 4.00 I & O 02/28/19 07:00 Intake Total 1700 ml Output Total 500 ml Balance 1200 ml Height & Weight Height: 5'11.00" Weight: 165lbs. 8.0oz. [id number]; 22.11 BMI Method:Stated General Appearance: No Apparent Distress, Anxious, Chronically ill, Thin HEENT: PERRL/EOMI, Normal ENT Inspection, Pharynx Normal Neck: Full Range of Motion, Normal Inspection, Non Tender, Supple, Carotid Bruit Respiratory: Chest Non Tender, No Accessory Muscle Use, No Respiratory Distress, Crackles, Decreased Breath Sounds Cardiovascular: Regular Rate, Rhythm, No Edema, No Gallop, No JVD, No Murmur, Normal Peripheral Pulses Extremity: Normal Capillary Refill, Normal Inspection, Normal Range of Motion, Non Tender, No Calf Tenderness, No Pedal Edema Neurologic/Psychiatric: Alert, Oriented x3, No Motor/Sensory Deficits, Normal Mood/Affect, Motor Weakness (generalized weakness legs) Skin: Normal Color, Warm/Dry Lymphatic: No Adenopathy Assessment/Plan Assessment/Plan Oxygen Dependent COPD -Continue Duoneb -Advair -Oxygen - CXR - No acute process Hx of lung cancer -Pt follows with oncology BRAULIO HINKLE DO Feb 28, 2019 06:53 POS
[2019-02-28] MEDS: ONDANSETRON 4 MG (ZOFRAN) ORAL DISSOLVE TAB PO PRN (07:45)
--- NOTE | 2019-02-28 09:04 | PM&R Progress Note ---
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 Overall feels pretty good but very debilitated Checked meds and labs Reviewed therapy notes Conferred with batch mixer operator of Systems Pulmonary: Dyspnea Objective Exam Vital Signs Vital Signs Date Time Temp Pulse Resp B/P (MAP) Pulse Ox O2 Delivery O2 Flow Rate FiO2 02/28/19 14:58 97 Nasal Cannula 4.00 02/28/19 06:23 36.8 71 18 132/66 (88) 02/27/19 15:17 36 Capillary Refill : General Appearance: No Apparent Distress, Anxious, Chronically ill, Thin HEENT: PERRL/EOMI, Normal ENT Inspection, Pharynx Normal Neck: Full Range of Motion, Normal Inspection, Non Tender, Supple, Carotid Bruit Respiratory: Chest Non Tender, No Accessory Muscle Use, No Respiratory Distress, Crackles, Decreased Breath Sounds Cardiovascular: Regular Rate, Rhythm, No Edema, No Gallop, No JVD, No Murmur, Normal Peripheral Pulses Gastrointestinal: Normal Bowel Sounds, No Organomegaly, No Pulsatile Mass, Non Tender, Soft Back: Normal Inspection, No CVA Tenderness, No Vertebral Tenderness Extremity: Normal Capillary Refill, Normal Inspection, Normal Range of Motion, Non Tender, No Calf Tenderness, No Pedal Edema Neurologic/Psychiatric: Alert, Oriented x3, No Motor/Sensory Deficits, Normal Mood/Affect, Motor Weakness (generalized weakness legs) Skin: Normal Color, Warm/Dry Lymphatic: No Adenopathy Results/Procedures Lab Patient resulted labs reviewed. FIM Transfers Therapy Code Descriptions/Definitions Functional [place] Measure: 0=Not Assessed/NA 4=Minimal Assistance 1=Total Assistance 5=Supervision or Setup 2=Maximal Assistance 6=Modified [place] 3=Moderate Assistance 7=Complete IndependenceSCALE: Activities may be completed with or without assistive devices. 8-Icotshwrxl-kimadjr completes the activity by him/herself with no assistance from a helper. 5-Set-up or Clean-up Assistance-helper sets up or cleans up; patient completes activity. [place] assists only prior to or following the activity. 4-Supervision or Touching Assistance-helper provides verbal cues and/or touching/steadying and/or contact guard assistance as patient completes activity. Assistance may be provided throughout the activity or intermittently. 3-Partial/Moderate Assistance-helper does LESS THAN HALF the effort. [place] lifts, holds or supports trunk or limbs, but provides less than half the effort. 2-Substantial/Maximal Assistance-helper does MORE THAN HALF the effort. [place] lifts or holds trunk or limbs and provides more than half the effort. 6-Sjnttcbwm-rlaltc does ALL the effort. Patient does none of the effort to complete the activity. Or, the assistance of 2 or more helpers is required for the patient to complete the activity. If activity was not attempted, code reason: 7-Patient Refused. 9-Not Applicable-not attempted and the patient did not perform the activity before the current illness, exacerbation or injury. 10-Not Attempted due to Environmental Limitations-(lack of equipment, weather restraints, etc.). 88-Not Attempted due to Medical Conditions or Safety Concerns. Roll Left to Right (QC): 5 Sit to Lying (QC): 5 Sit to Stand (QC): 4 (CGA to SBA, pt demo safe technique with skilled inst on hand and body placement) Chair/Xzb-ng-Gucio Xfer(QC): 3 Car Transfer (QC): 3 (asssist with standing to turn and to sit for safety and steadying assist. ) Gait Training Does the Patient Walk?: Yes Distance (FIM): 1=422-47 ft Distance: 350, 200 Walk 10 feet (QC): 4 Walk 50 ft with 2 Turns(QC): 4 Walk 150 ft (QC): 4 Walking 10ft/uneven surface-QC: 3 Gait Persons Needed: 1 Gait Assistive Device: FWW Wheelchair Training Does the Pt Use a Wheelchair?: No Wheel 50 ft with 2 turns (QC): 9 Wheel 150 ft (QC): 9 Stair Training 1 Step (curb) (QC): 3 (min assist for balance and lifting assist at the gait belt) 4 Steps (QC): 88 12 Steps (QC): 88 Balance Picking up an Object (QC): 88 ADL-Treatment Eating (QC): 6 (per nursing report) Shower/Bathe Self (QC): 4 (SBA) Upper Body Dressing (QC): 5 Lower Body Dressing (QC): 4 (SBA, FWW) On/Off Footwear (QC): 3 Toileting Hygiene (QC): 3 Toilet Transfer (QC): 3 Assessment/Plan Assessment and Plan Assess & Plan/Chief Complaint Assessment: Chemotherapy weakness Pneumonia Hypoxia Lung cancer HTN Chronic pain Plan: 04/11 IRF Monitor weakness closely Appreciate Dr Rodríguez (1) Generalized weakness Status: Acute (2) Left upper lobe pneumonia Status: Acute (3) Nausea & vomiting Status: Resolved Resolution Date/Time: 11/18/18 @ 15:27 (4) Urinary incontinence (5) Hypokalemia Status: Acute (6) DVT prophylaxis Status: Acute (7) Essential (primary) hypertension Status: Chronic (8) Anemia (9) Myopathy (10) Lung cancer Status: Chronic (11) Debility Status: Chronic (12) Chronic pain Status: Chronic (13) TBI (traumatic brain injury) Status: Chronic (14) RESPIRATORY FAILURE, UNSP, UNSP W HYPOXIA OR HYPERCAPNIA Status: Acute BEBETO OLIVAREZ DO Feb 28, 2019 09:04 POS
--- NOTE | 2019-02-28 09:56 | Physical Therapy Daily Note ---
PT Daily Note-Current Subjective Pt. states he really wants his clothes and shoes on and then hopes to go downstairs to use the SERAFIN. Pt. also requests to go to the toilet where he managed brief off and pants and shoes off and put clean brief on as well as pants and shoes back on. Pain Numeric Pain Scale: 4 Location: No Pain Reported, Left Location Body Site: Hip Pain Description: Cramping Comment: pt in supine hooklying with positional cramping LLE alleviated with positio Mental Status Patient Orientation: Normal For Age Attachments: Oxygen (4L) Transfers SCALE: Activities may be completed with or without assistive devices. 9-Lilkgxgvyf-cunamsd completes the activity by him/herself with no assistance from a helper. 5-Set-up or Clean-up Assistance-helper sets up or cleans up; patient completes activity. [place] assists only prior to or following the activity. 4-Supervision or Touching Assistance-helper provides verbal cues and/or touching/steadying and/or contact guard assistance as patient completes activity. Assistance may be provided throughout the activity or intermittently. 3-Partial/Moderate Assistance-helper does LESS THAN HALF the effort. [place] lifts, holds or supports trunk or limbs, but provides less than half the effort. 2-Substantial/Maximal Assistance-helper does MORE THAN HALF the effort. [place] lifts or holds trunk or limbs and provides more than half the effort. 9-Lyjqjtnxf-amvwmm does ALL the effort. Patient does none of the effort to complete the activity. Or, the assistance of 2 or more helpers is required for the patient to complete the activity. If activity was not attempted, code reason: 7-Patient Refused. 9-Not Applicable-not attempted and the patient did not perform the activity before the current illness, exacerbation or injury. 10-Not Attempted due to Environmental Limitations-(lack of equipment, weather restraints, etc.). 88-Not Attempted due to Medical Conditions or Safety Concerns. Transfers (B, C, W/C): 6 Roll Left to Right (QC): 6 Sit to Lying (QC): 6 Sit to Stand (QC): 6 Chair/Fbv-cx-Mlhox Xfer(QC): 6 Weight Bearing Right Lower Extremity: Right Weight Bearing/Tolerated Left Lower Extremity: Left Weight Bearing/Tolerated Gait Training Does the Patient Walk?: Yes Gait: 5 Walk 10 feet (QC): 5 Walk 50 ft with 2 Turns(QC): 5 Walk 150 ft (QC): 5 Gait Persons Needed: 1 Gait Assistive Device: FWW worked on gait with extended O2 tubing as pt. has used O2 at night at home but not during the day around his home Wheelchair Training Does the Pt Use a Wheelchair?: Yes Wheelchair Distance: 3=150 ft Wheel 50 ft with 2 turns (QC): 6 Wheel 150 ft (QC): 6 Type of Wheelchair: Manual pt. wheeled chair on off elevator and managed buttons etc 400ft plus Stair Training Stair Training: Handrails/: 2 handrails #of Steps: 4 4 Steps (QC): 4 Stairs: Pattern: Step to Level of Assist: 4 Exercises Supine Ex: Bridging, Ankle pumps, Quad Set, Rolling, Glut sets, Heel Slides, Scooting, Straight leg raise, Hip abd/add Supine Reps: 15 Assessment Current Status: Good Progress gives full effort, wants to be as indep as possible PT Usp Goals Usp Goals PT Usp Goals Time Frame: Mar 20, 2019 Sit to Lying (QC): 6 Lying-Sitting on Side/Bed(QC): 6 Sit to Stand (QC): 6 Roll Left to Right (QC): 6 Chair/Fvv-qe-Qufmt Xfer(QC): 6 Car Transfer (QC): 6 Walk 10 feet (QC): 6 Walk 10ft-Uneven Surface(QC): 6 Walk 50ft with 2 Turns (QC): 6 Walk 150 ft (QC): 6 Gait Assistive Device: FWW Wheel 50 feet with 2 turns (QC: 9 1 Step (curb) (QC): 4 4 Steps (QC): 9 12 Steps (QC): 9 Picking up an Object (QC): 9 PT Plan Treatment/Plan Treatment Plan: Continue Plan of Care Treatment Plan: Bed Mobility, Concurrent Therapy, Education, Functional Acti vity Herrera, Functional Strength, Group Therapy, Gait, Safety, Therapeutic Exercise, Transfers Treatment Duration: Feb 26, 2019 Frequency: Modified Program (IRF) (04/11) Estimated Hrs Per Day: 1.5 hours per day Patient and/or Family Agrees t: Yes Safety Risks/Education Patient Education: Gait Training, Transfer Techniques, Steps, Correct Positioning, W/C Management, Disease Process, Safety Issues Teaching Recipient: Patient Teaching Methods: Demonstration, Discussion Response to Teaching: Verbalize Understanding, Return Demonstration, Reinforcement Needed Time/GCodes Time In: 900 Time Out: 1000 Total Billed Treatment Time: 60 Total Billed Treatment 1,WCH15m,EX15m,FA15m,GT15m ZORA CORDERO PT Feb 28, 2019 09:56 POS
[2019-02-28] MEDS: RT-ADVAIR HFA 115/21 MCG PER PUFF IH SCH ×2 (10:42→21:47)
[2019-02-28] MEDS: PARoxetine 20 MG (PAXIL) TAB PO SCH (10:43)
[2019-02-28] MEDS: ENOXAPARIN 40 MG/0.4 ML (LOVENOX) SYR SC SCH (10:43)
[2019-02-28] MEDS: amLODIPine 10 MG (NORVASC) TAB PO SCH (10:43)
[2019-02-28] MEDS: ASCORBIC ACID (VIT C) 500 MG TABLET PO SCH (10:43)
[2019-02-28] MEDS: TAMSULOSIN 0.4 MG (FLOMAX) CAP PO SCH (10:43)
[2019-02-28] MEDS: LORATADINE (CLARITIN) 10 MG TAB PO SCH (10:43)
[2019-02-28] MEDS: GABAPENTIN 300 MG (NEURONTIN) CAP PO SCH ×3 (10:44→20:03)
[2019-02-28] MEDS: SENNA W/DOCUSATE (SENOKOT S) TABLET PO SCH ×2 (10:53→19:59)
--- NOTE | 2019-02-28 10:55 | Occupational Ther Daily Note ---
OT Current Status-Daily Note Subjective Pt seen in room, up in recliner, agreeable to OT. No pain mentioned until end of tx he said his foot hurt. Pleased to have toenails trimmed. Appearance Alert, cooperative Mental Status/Objective Attachments: Other-See Comments (covered IV site ) ADL-Treatment Pt got up from recliner without help. Walked SBA, FWW to bathroom, with pt verbalizing, "I need to turn around so that the oxygen tubing is OK". Completed toilet transfer with SBA, no LOB observed. Managed clothing and hygiene with SBA, FWW, grab bar, tall toilet. Undressed without help. Transferred to shower with SBA, cues for O2 tubing. Pt showered with setup and SBA when standing to wash bottom, help with washing back. Cues to look at tubing before getting up from shower. Walked back to toilet to dress. Managed clothing with setup and only SBA when pulling pants up. Walked to sink SBA, FWW to comb hair and shave. No LOB observed. Walked back to recliner, SBA, FWW. Pt left up in recliner, O2 in place, all needs met. Therapy Code Descriptions/Definitions Functional [place] Measure: 0=Not Assessed/NA 4=Minimal Assistance 1=Total Assistance 5=Supervision or Setup 2=Maximal Assistance 6=Modified [place] 3=Moderate Assistance 7=Complete IndependenceSCALE: Activities may be completed with or without assistive devices. 9-Gcvllrioan-bsdzvdj completes the activity by him/herself with no assistance from a helper. 5-Set-up or Clean-up Assistance-helper sets up or cleans up; patient completes activity. [place] assists only prior to or following the activity. 4-Supervision or Touching Assistance-helper provides verbal cues and/or touching/steadying and/or contact guard assistance as patient completes activity. Assistance may be provided throughout the activity or intermittently. 3-Partial/Moderate Assistance-helper does LESS THAN HALF the effort. [place] lifts, holds or supports trunk or limbs, but provides less than half the effort. 2-Substantial/Maximal Assistance-helper does MORE THAN HALF the effort. [place] lifts or holds trunk or limbs and provides more than half the effort. 8-Nybtomkqk-dibziz does ALL the effort. Patient does none of the effort to complete the activity. Or, the assistance of 2 or more helpers is required for the patient to complete the activity. If activity was not attempted, code reason: 7-Patient Refused. 9-Not Applicable-not attempted and the patient did not perform the activity before the current illness, exacerbation or injury. 10-Not Attempted due to Environmental Limitations-(lack of equipment, weather restraints, etc.). 88-Not Attempted due to Medical Conditions or Safety Concerns. Shower/Bathe Self (QC): 4 (SBA for washing bottom) Upper Body Dressing (QC): 5 Lower Body Dressing (QC): 4 (SBA for clothing management) Toileting Hygiene (QC): 4 (SBA for clothing management) Toilet Transfer (QC): 4 (SBA) Education OT Patient Education: Modified ADL techniques, Progress toward Goal/Update tx plan, Purpose of tx/functional activities, Safety issues Teaching Recipient: Patient Teaching Methods: Demonstration, Discussion Response to Teaching: Verbalize Understanding, Return Demonstration, Reinforcement Needed OT Short Term Goals Short Term Goals 1=Demonstrate adherence to instructed precautions during ADL tasks. 2=Patient will verbalize/demonstrate understanding of assistive devices/modifica tions for ADL. 3=Patient will improve strength/tolerance for activity to enable patient to perform ADL's. OT Ceramics Technician Goals Ceramics Technician Goals Time Frame: Mar 18, 2019 Eating (QC): 6 Oral Hygiene (QC): 6 Shower/Bathe Self (QC): 5 Upper Body Dressing (QC): 6 Lower Body Dressing (QC): 6 On/Off Footwear (QC): 6 Toileting Hygiene (QC): 6 Toilet/Commode Transfer (QC): 6 Additional Goals: 1-Demonstrate ADL Tasks, 2-Verbalize Understanding, 3- ImproveStrength/[place]rera 1=Demonstrate adherence to instructed precautions during ADL tasks. 2=Patient will verbalize/demonstrate understanding of assistive devices/modifications for ADL. 3=Patient will improve strength/tolerance for activity to enable patient to perform ADL's. OT Education/Plan Problem List/Assessment Pt demonstrates decreased ADL functioning, mobility, strength, and activity tolerance. Pt to benefit from skilled OT intervention for ADL training, transfers, strengthening, and safety education to increase level of independence and allow safe discharge plan. Discharge Recommendations Plan/Recommendations: Continue POC Treatment Plan/Plan of Care Patient would benefit from OT for education, treatment and training to promote independence in ADL's, mobility, safety and/or upper extremity function for ADL's. Plan of Care: ADL Retraining, Functional Mobility, Group Exercise/Act as Ind, UE Funct Exercise/Act Treatment Duration: Mar 18, 2019 Frequency: Modified Program (IRF) (04/11) Estimated Hrs Per Day: 1.5 hours per day Rehab Potential: Good (pt is motivated and compliant) Time/GCodes Start Time: 10:00 Stop Time: 10:45 Total Time Billed (hr/min): 45 Billed Treatment Time visit, 45 minutes ADL RIZWAN MORA OT Feb 28, 2019 10:55 POS
--- NOTE | 2019-02-28 13:30 | Speech Therapy Daily Note ---
Speech Daily Progress Note Subjective Date Seen by Provider: Feb 28, 2019 Time Seen by Provider: 00:30 Patient was resting in his chair when I entered his room. He states he slept well last night. Objective The patient completed a series of memory questions of general information with 85% given 15% verbal cues. Assessment Assessment Current Status: Good Progress Treatment Plan Continue Plan of Care Speech Short Term Goals Short Term Goals Short Term Goals 1) The patient will complete memory tasks related to his daily living skills at 90% or greater given 10% or less cues. 2) The patient will complete problem solving tasks related to his daily living skills at 90% or greater given 10% or less cues. 3) The patient will complete safety awareness tasks related to his daily living skills at 90% or greater given 10% or less cues. Speech Patternmaker Hand Goals Patternmaker Hand Goals The patient will improve his cognitive-communication abilities in order to complete daily living tasks with minimal assist. Speech-Plan Patient/Family Goals Patient/Family Goals: Patient plans on moving in with family post rehab. Treatment Plan Speech Therapy Treatment Plan: Continue Plan of Care Patient is progressing with skilled therapy. Treatment Duration: Mar 12, 2019 Frequency: 5 times per week Estimated Hrs Per Day: .5 hour per day Rehab Potential: Good (pt is motivated and compliant) Barriers to Learning: Patient has cognitive deficits Pt/Family Agrees to Plan: Yes Safety Risks/Education Teaching Recipient: Patient Teaching Methods: Demonstration, Discussion Response to Teaching: Verbalize Understanding, Return Demonstration Education Topics Provided: Continued safety within the ARU. Time Speech Therapy Time In: 08:30 Speech Therapy Time Out: 09:00 Total Billed Time: 30 Billed Treatment Time 1, LIEN Marcos Feb 28, 2019 13:29 POS
--- NOTE | 2019-02-28 14:27 | Therapy Group Daily Note ---
Therapy Daily Group Note Patient Education Topic Home Safety (winter time health and home safety) Exercises LE Seated Exercise, UE Exercise Session Ratio (pt:therapist): 4:1 Goal of Session: Home Safety Strategies, UE/LE Strengthing Goal Met for this Session: Yes Pt Benefit of Group: F/U Use of Strategies @Home, Increased Functional Safety, Socialization Other/Notes Pt. was an active participant in PT OT group session. Pt. introduced himself and shared readily regarding subject matter. Education was focused on managing winter at home and in your community, staying healthy and safe in all aspects of living during winter, ie nutrition and hydration, influenza and pnuemonia vaccines, managing depression and lonliness, staying active and safe at home during possible periods of ice, snow or power outages. Pts. all participated in seated U&L extremity exercises sharing and demonstrating exercises they recall. Pt. to from group with assistance for ambulation with FWW. Pt in bed after group with call ball at side and needs met. Start Time: 13:00 Stop Time: 14:10 Total Billed Treatment Time: 70 Total Billed Treatment 1,GRP KYLER SOTELO LEGISLATIVE CORRESPONDENT Feb 28, 2019 14:27 POS
[2019-02-28 18:46] VITALS: BP 132/66
[2019-03-01] MEDS: ARTIFICAL TEARS 0.4 ML UNIT DOSE (REFRESH PLUS) OD SCH ×12 (00:30→20:54)
[2019-03-01] MEDS: RT-ALBUTEROL/IPRATROPIUM 3 ML (DUONEB) VIAL INH SCH ×4 (02:06→21:02)
[2019-03-01] MEDS: PIPERACILLIN/TAZOBACTAM (BULK) 4.5 GM in NS (IVPB) 100 ML IV SCH ×3 (02:18→09:45)
[2019-03-01 05:30] VITALS: BP 150/65
[2019-03-01] MEDS: MULTIVIT W/MINERALS TAB (THERAGRAN M) PO SCH (05:56)
[2019-03-01] MEDS: CATHETER FLUSH 10 ML SYR IV SCH (05:56)
[2019-03-01] MEDS: KCL 20 MEQ TAB (K-DUR) PO SCH (05:56)
[2019-03-01] MEDS: PANTOPRAZOLE 20 MG TABLET (PROTONIX) PO SCH (05:57)
[2019-03-01 09:13] VITALS: BP 138/63
[2019-03-01] MEDS: PARoxetine 20 MG (PAXIL) TAB PO SCH (09:16)
[2019-03-01] MEDS: amLODIPine 10 MG (NORVASC) TAB PO SCH (09:16)
[2019-03-01] MEDS: ASCORBIC ACID (VIT C) 500 MG TABLET PO SCH (09:16)
[2019-03-01] MEDS: TAMSULOSIN 0.4 MG (FLOMAX) CAP PO SCH (09:16)
[2019-03-01] MEDS: GABAPENTIN 300 MG (NEURONTIN) CAP PO SCH ×3 (09:16→20:45)
[2019-03-01] MEDS: LORATADINE (CLARITIN) 10 MG TAB PO SCH ×2 (09:17→20:45)
[2019-03-01] MEDS: ENOXAPARIN 40 MG/0.4 ML (LOVENOX) SYR SC SCH (09:17)
[2019-03-01] MEDS: fentaNYL PATCH 100 MCG (DURAGESIC) TD SCH (09:18)
[2019-03-01] MEDS: SENNA W/DOCUSATE (SENOKOT S) TABLET PO SCH ×2 (09:19→19:15)
[2019-03-01] MEDS: FENTANYL PATCH REMOVAL TP SCH (09:34)
--- NOTE | 2019-03-01 09:46 | PM&R Progress Note ---
Subjective HPI/CC On Admission Date Seen by Provider: Mar 01, 2019 Time Seen by Provider: 09:45 Subjective/Events-last exam IV was DC and abx changed to po now Stools are loose at times Pain is pretty well controlled Dr. 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 and he fells much better today Overall feels pretty good but very debilitated O2 remains at 2-4L/min Checked meds and labs Reviewed therapy notes Conferred with mechanical development engineer of Systems General: Fatigue Pulmonary: Dyspnea Musculoskeletal: leg pain Objective Exam Vital Signs Vital Signs Date Time Temp Pulse Resp B/P (MAP) Pulse Ox O2 Delivery O2 Flow Rate FiO2 03/02/19 17:30 36.7 76 18 146/67 (93) 97 Nasal Cannula 2.00 02/27/19 15:17 36 Capillary Refill : General Appearance: No Apparent Distress, Anxious, Chronically ill, Thin HEENT: PERRL/EOMI, Normal ENT Inspection, Pharynx Normal Neck: Full Range of Motion, Normal Inspection, Non Tender, Supple, Carotid Bruit Respiratory: Chest Non Tender, No Accessory Muscle Use, No Respiratory Distress, Crackles, Decreased Breath Sounds Cardiovascular: Regular Rate, Rhythm, No Edema, No Gallop, No JVD, No Murmur, Normal Peripheral Pulses Gastrointestinal: Normal Bowel Sounds, No Organomegaly, No Pulsatile Mass, Non Tender, Soft Back: Normal Inspection, No CVA Tenderness, No Vertebral Tenderness Extremity: Normal Capillary Refill, Normal Inspection, Normal Range of Motion, Non Tender, No Calf Tenderness, No Pedal Edema Neurologic/Psychiatric: Alert, Oriented x3, No Motor/Sensory Deficits, Normal Mood/Affect, Motor Weakness (generalized weakness legs) Skin: Normal Color, Warm/Dry Lymphatic: No Adenopathy Results/Procedures Lab Patient resulted labs reviewed. FIM Transfers Therapy Code Descriptions/Definitions Functional [place] Measure: 0=Not Assessed/NA 4=Minimal Assistance 1=Total Assistance 5=Supervision or Setup 2=Maximal Assistance 6=Modified [place] 3=Moderate Assistance 7=Complete IndependenceSCALE: Activities may be completed with or without assistive devices. 3-Fcbdaazixm-vwvdsrp completes the activity by him/herself with no assistance from a helper. 5-Set-up or Clean-up Assistance-helper sets up or cleans up; patient completes activity. [place] assists only prior to or following the activity. 4-Supervision or Touching Assistance-helper provides verbal cues and/or touching/steadying and/or contact guard assistance as patient completes activity. Assistance may be provided throughout the activity or intermittently. 3-Partial/Moderate Assistance-helper does LESS THAN HALF the effort. [place] lifts, holds or supports trunk or limbs, but provides less than half the effort. 2-Substantial/Maximal Assistance-helper does MORE THAN HALF the effort. [place] lifts or holds trunk or limbs and provides more than half the effort. 4-Qtifbiaie-houqdv does ALL the effort. Patient does none of the effort to complete the activity. Or, the assistance of 2 or more helpers is required for the patient to complete the activity. If activity was not attempted, code reason: 7-Patient Refused. 9-Not Applicable-not attempted and the patient did not perform the activity before the current illness, exacerbation or injury. 10-Not Attempted due to Environmental Limitations-(lack of equipment, weather restraints, etc.). 88-Not Attempted due to Medical Conditions or Safety Concerns. Transfers (B, C, W/C) (FIM): 6 Roll Left to Right (QC): 6 Sit to Lying (QC): 6 Sit to Stand (QC): 6 Chair/Bpc-jw-Frwtk Xfer(QC): 6 Car Transfer (QC): 3 (asssist with standing to turn and to sit for safety and steadying assist. ) Gait Training Does the Patient Walk?: Yes Gait (FIM): 5 Distance (FIM): 8=758-24 ft Distance: 350, 200 Walk 10 feet (QC): 5 Walk 50 ft with 2 Turns(QC): 5 Walk 150 ft (QC): 5 Walking 10ft/uneven surface-QC: 3 Gait Persons Needed: 1 Gait Assistive Device: FWW Wheelchair Training Does the Pt Use a Wheelchair?: Yes Wheelchair Distance: 3=150 ft Wheel 50 ft with 2 turns (QC): 6 Wheel 150 ft (QC): 6 Type of Wheelchair: Manual Stair Training Stair Training: Handrails/: 2 handrails #of Steps: 4 1 Step (curb) (QC): 3 (min assist for balance and lifting assist at the gait belt) 4 Steps (QC): 4 12 Steps (QC): 88 Stairs: Pattern: Step to Level of Assist: 4 Balance Picking up an Object (QC): 88 ADL-Treatment Eating (QC): 6 (per nursing report) Shower/Bathe Self (QC): 4 (SBA for washing bottom) Upper Body Dressing (QC): 5 Lower Body Dressing (QC): 4 (SBA for clothing management) On/Off Footwear (QC): 3 Toileting Hygiene (QC): 4 (SBA for clothing management) Toilet Transfer (QC): 4 (SBA) Assessment/Plan Assessment and Plan Assess & Plan/Chief Complaint Assessment: Chemotherapy weakness Pneumonia Hypoxia Lung cancer HTN Chronic pain Plan: 04/11 IRF Monitor weakness closely Appreciate Dr Rodríguez Appreciate Dr López Change to PO abx (1) Generalized weakness Status: Acute (2) Left upper lobe pneumonia Status: Acute (3) Nausea & vomiting Status: Resolved Resolution Date/Time: 11/18/18 @ 15:27 (4) Urinary incontinence (5) Hypokalemia Status: Acute (6) DVT prophylaxis Status: Acute (7) Essential (primary) hypertension Status: Chronic (8) Anemia (9) Myopathy (10) Lung cancer Status: Chronic (11) Debility Status: Chronic (12) Chronic pain Status: Chronic (13) TBI (traumatic brain injury) Status: Chronic (14) RESPIRATORY FAILURE, UNSP, UNSP W HYPOXIA OR HYPERCAPNIA Status: Acute BEBETO OLIVAREZ DO Mar 01, 2019 09:46 POS
[2019-03-01] MEDS: RT-ADVAIR HFA 115/21 MCG PER PUFF IH SCH ×2 (09:47→21:02)
--- NOTE | 2019-03-01 10:27 | Physical Therapy Daily Note ---
PT Daily Note-Current Subjective Pt. agrees to Rx. c/o pain in right knee 5/10 after gait. Pain Numeric Pain Scale: 5-Moderate Pain Location: Right Location Body Site: Knee Pain Description: Ache Mental Status Patient Orientation: Person, Place, Time, Situation Attachments: Oxygen (2L) Transfers SCALE: Activities may be completed with or without assistive devices. 1-Ydpfwwyfha-mehpkeb completes the activity by him/herself with no assistance from a helper. 5-Set-up or Clean-up Assistance-helper sets up or cleans up; patient completes activity. [place] assists only prior to or following the activity. 4-Supervision or Touching Assistance-helper provides verbal cues and/or touching/steadying and/or contact guard assistance as patient completes activity. Assistance may be provided throughout the activity or intermittently. 3-Partial/Moderate Assistance-helper does LESS THAN HALF the effort. [place] lifts, holds or supports trunk or limbs, but provides less than half the effort. 2-Substantial/Maximal Assistance-helper does MORE THAN HALF the effort. [place] lifts or holds trunk or limbs and provides more than half the effort. 4-Zlqtacrdv-idxskr does ALL the effort. Patient does none of the effort to complete the activity. Or, the assistance of 2 or more helpers is required for the patient to complete the activity. If activity was not attempted, code reason: 7-Patient Refused. 9-Not Applicable-not attempted and the patient did not perform the activity before the current illness, exacerbation or injury. 10-Not Attempted due to Environmental Limitations-(lack of equipment, weather restraints, etc.). 88-Not Attempted due to Medical Conditions or Safety Concerns. Transfers (B, C, W/C): 6 Sit to Stand (QC): 6 Bed to/from Chair: 5 Weight Bearing Right Lower Extremity: Right Weight Bearing/Tolerated Left Lower Extremity: Left Weight Bearing/Tolerated Gait Training Does the Patient Walk?: Yes Gait: 5 Walk 10 feet (QC): 5 Walk 50 ft with 2 Turns(QC): 5 Walk 150 ft (QC): 5 Gait Persons Needed: 1 Gait Assistive Device: FWW 200ft FWW slow, CGA to SBA and assist for O2 2L Exercises Seated Therapy Exercises: Ankle pumps, Sit to stand, Long arc quads, Hip flexion, Hip abd/add Seated Reps: 12 Assessment Current Status: Good Progress PT Longterm Goals Polygraph Technician Goals PT Longterm Goals Time Frame: Mar 20, 2019 Sit to Lying (QC): 6 Lying-Sitting on Side/Bed(QC): 6 Sit to Stand (QC): 6 Roll Left to Right (QC): 6 Chair/Nvq-tt-Dront Xfer(QC): 6 Car Transfer (QC): 6 Walk 10 feet (QC): 6 Walk 10ft-Uneven Surface(QC): 6 Walk 50ft with 2 Turns (QC): 6 Walk 150 ft (QC): 6 Gait Assistive Device: FWW Wheel 50 feet with 2 turns (QC: 9 1 Step (curb) (QC): 4 4 Steps (QC): 9 12 Steps (QC): 9 Picking up an Object (QC): 9 PT Plan Treatment/Plan Treatment Plan: Continue Plan of Care Treatment Plan: Bed Mobility, Concurrent Therapy, Education, Functional Activity Herrera, Functional Strength, Group Therapy, Gait, Safety, Therapeutic Exercise, Transfers Treatment Duration: Feb 26, 2019 Frequency: Modified Program (IRF) (04/11) Estimated Hrs Per Day: 1.5 hours per day Patient and/or Family Agrees t: Yes Safety Risks/Education Patient Education: Gait Training, Transfer Techniques, Correct Positioning, Disease Process, Safety Issues Teaching Recipient: Patient Teaching Methods: Demonstration, Discussion Response to Teaching: Verbalize Understanding, Return Demonstration, Reinforcement Needed Time/GCodes Time In: 1000 Time Out: 1020 Total Billed Treatment Time: 20 Total Billed Treatment 1,GT20m KYLER SOTELO PUSH BENCH OPERATOR HELPER Mar 01, 2019 10:27 POS
--- NOTE | 2019-03-01 11:03 | NUR ---
IV came out this AM. Per Dr. Sullivan... DC Zosyn and start Omnicef- 300 MG PO BID X4 days. Ok to leave IV out. Also, C/O right knee pain and a stuffy nose. New order for Voltaren gel to right knee and increase Claritin to BID.
[2019-03-01] MEDS: DICLOFENAC 1% GEL 100 GM (VOLTAREN) TUBE TOP SCH ×3 (11:17→20:46)
[2019-03-01] MEDS: CEFDINIR 300 MG (OMNICEF) CAP PO SCH ×2 (11:17→20:45)
[2019-03-01] MEDS ORDERED: RT-ALBUTEROL/IPRATROPIUM 3 ML (DUONEB) VIAL ONE (14:24)
[2019-03-01 16:38] VITALS: BP 128/70
[2019-03-01] MEDS: TRIAMCINOLONE 0.025% CR (KENALOG) 15 GM TUBE TOP PRN (18:36)
[2019-03-02] MEDS: ARTIFICAL TEARS 0.4 ML UNIT DOSE (REFRESH PLUS) OD SCH ×13 (00:46→23:32)
[2019-03-02] MEDS: RT-ALBUTEROL/IPRATROPIUM 3 ML (DUONEB) VIAL INH SCH ×3 (01:23→14:49)
[2019-03-02 05:11] VITALS: BP 130/74
[2019-03-02] MEDS: PANTOPRAZOLE 20 MG TABLET (PROTONIX) PO SCH (06:26)
[2019-03-02] MEDS: KCL 20 MEQ TAB (K-DUR) PO SCH (06:26)
[2019-03-02] MEDS: MULTIVIT W/MINERALS TAB (THERAGRAN M) PO SCH (06:26)
[2019-03-02] MEDS ORDERED: PATIENT MAY USE OWN MED,SINGLE MED PO SCH (07:30)
[2019-03-02] MEDS: TRIAMCINOLONE 0.025% CR (KENALOG) 15 GM TUBE TOP PRN (07:40)
[2019-03-02] MEDS: RT-ADVAIR HFA 115/21 MCG PER PUFF IH SCH (07:53)
[2019-03-02] MEDS: ASCORBIC ACID (VIT C) 500 MG TABLET PO SCH (08:03)
[2019-03-02] MEDS: CEFDINIR 300 MG (OMNICEF) CAP PO SCH ×2 (08:04→19:43)
[2019-03-02] MEDS: TAMSULOSIN 0.4 MG (FLOMAX) CAP PO SCH (08:04)
[2019-03-02] MEDS: SENNA W/DOCUSATE (SENOKOT S) TABLET PO SCH ×2 (08:04→19:26)
[2019-03-02] MEDS: GABAPENTIN 300 MG (NEURONTIN) CAP PO SCH ×3 (08:04→19:43)
[2019-03-02] MEDS: LORATADINE (CLARITIN) 10 MG TAB PO SCH ×2 (08:04→19:43)
[2019-03-02] MEDS: amLODIPine 10 MG (NORVASC) TAB PO SCH (08:04)
[2019-03-02] MEDS: PARoxetine 20 MG (PAXIL) TAB PO SCH (08:04)
[2019-03-02] MEDS: ONDANSETRON 4 MG (ZOFRAN) ORAL DISSOLVE TAB PO PRN (08:05)
[2019-03-02] MEDS: DICLOFENAC 1% GEL 100 GM (VOLTAREN) TUBE TOP SCH ×4 (08:13→19:44)
--- NOTE | 2019-03-02 09:07 | NUR ---
PT UP TO BR TO VOID/TO CHAIR TO WATCH TELEVISION. VOLTAREN GEL TO RIGHT KNEE FOR PAIN OF 7/10. PT IN [facility]ITS TODAY. PT DOES NOT WANT TO TAKE SHOWER TODAY."STATES HE HAD ONE YESTERDAY, SO HE DOES NEED ONE." [facility] CHANGE/ORAL CARE DONE/CLOTHES CHANGED/WASHED. PT HAS HAD ITCHING FROM [facility]. IVORY LINENS ORDERED AND PLACED ON BED. NO RASH NOTED.
[2019-03-02] MEDS: VILANTEROL TR IH SCH (09:10)
[2019-03-02] MEDS: UMECLIDINIUM BRM IH SCH (09:10)
[2019-03-02] MEDS: ENOXAPARIN 40 MG/0.4 ML (LOVENOX) SYR SC SCH (10:09)
[2019-03-02 17:30] VITALS: BP 146/67
--- NOTE | 2019-03-02 17:48 | PM&R Progress Note ---
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 and he thinks he feels better Overall feels pretty good but very debilitated Checked meds and labs Reviewed therapy notes Conferred with cafeteria director of Systems General: Fatigue Pulmonary: Dyspnea Musculoskeletal: leg pain Objective Exam Vital Signs Vital Signs Date Time Temp Pulse Resp B/P (MAP) Pulse Ox O2 Delivery O2 Flow Rate FiO2 03/02/19 17:30 36.7 76 18 146/67 (93) 97 Nasal Cannula 2.00 02/27/19 15:17 36 Capillary Refill : General Appearance: No Apparent Distress, Anxious, Chronically ill, Thin HEENT: PERRL/EOMI, Normal ENT Inspection, Pharynx Normal Neck: Full Range of Motion, Normal Inspection, Non Tender, Supple, Carotid Bruit Respiratory: Chest Non Tender, No Accessory Muscle Use, No Respiratory Distress, Crackles, Decreased Breath Sounds Cardiovascular: Regular Rate, Rhythm, No Edema, No Gallop, No JVD, No Murmur, Normal Peripheral Pulses Gastrointestinal: Normal Bowel Sounds, No Organomegaly, No Pulsatile Mass, Non Tender, Soft Back: Normal Inspection, No CVA Tenderness, No Vertebral Tenderness Extremity: Normal Capillary Refill, Normal Inspection, Normal Range of Motion, Non Tender, No Calf Tenderness, No Pedal Edema Neurologic/Psychiatric: Alert, Oriented x3, No Motor/Sensory Deficits, Normal Mood/Affect, Motor Weakness (generalized weakness legs) Skin: Normal Color, Warm/Dry Lymphatic: No Adenopathy Results/Procedures Lab Patient resulted labs reviewed. FIM Transfers Therapy Code Descriptions/Definitions Functional [place] Measure: 0=Not Assessed/NA 4=Minimal Assistance 1=Total Assistance 5=Supervision or Setup 2=Maximal Assistance 6=Modified [place] 3=Moderate Assistance 7=Complete IndependenceSCALE: Activities may be completed with or without assistive devices. 8-Juaoqvrikr-ujriqtv completes the activity by him/herself with no assistance from a helper. 5-Set-up or Clean-up Assistance-helper sets up or cleans up; patient completes activity. [place] assists only prior to or following the activity. 4-Supervision or Touching Assistance-helper provides verbal cues and/or touching/steadying and/or contact guard assistance as patient completes activity. Assistance may be provided throughout the activity or intermittently. 3-Partial/Moderate Assistance-helper does LESS THAN HALF the effort. [place] lifts, holds or supports trunk or limbs, but provides less than half the effort. 2-Substantial/Maximal Assistance-helper does MORE THAN HALF the effort. [place] lifts or holds trunk or limbs and provides more than half the effort. 1-Ogrgnsfij-ogwpvc does ALL the effort. Patient does none of the effort to complete the activity. Or, the assistance of 2 or more helpers is required for the patient to complete the activity. If activity was not attempted, code reason: 7-Patient Refused. 9-Not Applicable-not attempted and the patient did not perform the activity before the current illness, exacerbation or injury. 10-Not Attempted due to Environmental Limitations-(lack of equipment, weather restraints, etc.). 88-Not Attempted due to Medical Conditions or Safety Concerns. Transfers (B, C, W/C) (FIM): 6 Roll Left to Right (QC): 6 Sit to Lying (QC): 6 Sit to Stand (QC): 6 Chair/Fvf-ym-Ntqso Xfer(QC): 6 Bed to/from Chair: 5 Car Transfer (QC): 3 (asssist with standing to turn and to sit for safety and steadying assist. ) Gait Training Does the Patient Walk?: Yes Gait (FIM): 5 Distance (FIM): 3=908-60 ft Distance: 350, 200 Walk 10 feet (QC): 5 Walk 50 ft with 2 Turns(QC): 5 Walk 150 ft (QC): 5 Walking 10ft/uneven surface-QC: 3 Gait Persons Needed: 1 Gait Assistive Device: FWW Wheelchair Training Does the Pt Use a Wheelchair?: Yes Wheelchair Distance: 3=150 ft Wheel 50 ft with 2 turns (QC): 6 Wheel 150 ft (QC): 6 Type of Wheelchair: Manual Stair Training Stair Training: Handrails/: 2 handrails #of Steps: 4 1 Step (curb) (QC): 3 (min assist for balance and lifting assist at the gait belt) 4 Steps (QC): 4 12 Steps (QC): 88 Stairs: Pattern: Step to Level of Assist: 4 Balance Picking up an Object (QC): 88 ADL-Treatment Eating (QC): 6 (per nursing report) Shower/Bathe Self (QC): 4 (SBA for washing bottom) Upper Body Dressing (QC): 5 Lower Body Dressing (QC): 4 (SBA for clothing management) On/Off Footwear (QC): 3 Toileting Hygiene (QC): 4 (SBA for clothing management) Toilet Transfer (QC): 4 (SBA) Assessment/Plan Assessment and Plan Assess & Plan/Chief Complaint Assessment: Chemotherapy weakness Pneumonia Hypoxia Lung cancer HTN Chronic pain Plan: 04/11 IRF Monitor weakness closely Appreciate Dr Rodríguez Check labs in am Getting close to baseline (1) Generalized weakness Status: Acute (2) Left upper lobe pneumonia Status: Acute (3) Nausea & vomiting Status: Resolved Resolution Date/Time: 11/18/18 @ 15:27 (4) Urinary incontinence (5) Hypokalemia Status: Acute (6) DVT prophylaxis Status: Acute (7) Essential (primary) hypertension Status: Chronic (8) Anemia (9) Myopathy (10) Lung cancer Status: Chronic (11) Debility Status: Chronic (12) Chronic pain Status: Chronic (13) TBI (traumatic brain injury) Status: Chronic (14) RESPIRATORY FAILURE, UNSP, UNSP W HYPOXIA OR HYPERCAPNIA Status: Acute BEBETO OLIVAREZ DO Mar 02, 2019 17:48 POS
[2019-03-03] MEDS: ARTIFICAL TEARS 0.4 ML UNIT DOSE (REFRESH PLUS) OD SCH ×10 (00:47→22:00)
[2019-03-03] MEDS: RT-ADVAIR HFA 115/21 MCG PER PUFF IH SCH ×2 (01:17→15:26)
[2019-03-03] MEDS: RT-ALBUTEROL/IPRATROPIUM 3 ML (DUONEB) VIAL INH SCH ×3 (01:17→18:50)
[2019-03-03 05:08] VITALS: BP 145/64
[2019-03-03 05:10] LABS: BASOPHILS % (AUTO) 0 % (0-10); EOSINOPHILS # (AUTO) 0.7 10^3/uL (0.0-0.3); EOSINOPHILS % (AUTO) 15 % (0-10); HEMATOCRIT 33 % (40-54); HEMOGLOBIN 10.3 G/DL (13.3-17.7); LYMPHOCYTES # (AUTO) 1.5 X 10^3 (1.0-4.0); LYMPHOCYTES % (AUTO) 33 % (12-44); MEAN CORPUSCULAR HEMOGLOBIN 27 PG (25-34); MEAN CORPUSCULAR HGB CONC 31 G/DL (32-36); MEAN CORPUSCULAR VOLUME 88 FL (80-99); MONOCYTES # (AUTO) 0.4 X 10^3 (0.0-1.0); MONOCYTES % (AUTO) 9 % (0-12); NEUTROPHILS # (AUTO) 1.9 X 10^3 (1.8-7.8); NEUTROPHILS % (AUTO) 43 % (42-75); PLATELET COUNT 255 10^3/uL (130-400); RED CELL DISTRIBUTION WIDTH 14.6 % (10.0-14.5); WHITE BLOOD COUNT 4.5 10^3/uL (4.3-11.0)
[2019-03-03 05:33] LABS: ALANINE AMINOTRANSFERASE 21 U/L (0-55); ALBUMIN 3.6 GM/DL (3.2-4.5); ALKALINE PHOSPHATASE 73 U/L (40-136); BILIRUBIN,TOTAL 0.2 MG/DL (0.1-1.0); BUN/CREATININE RATIO 14; CALCIUM 9.2 MG/DL (8.5-10.1); CARBON DIOXIDE 26 MMOL/L (21-32); CHLORIDE 106 MMOL/L (98-107); GFR ESTIMATED > 60; GLUCOSE 90 MG/DL (70-105); SODIUM 141 MMOL/L (135-145); TOTAL PROTEIN 6.7 GM/DL (6.4-8.2)
[2019-03-03] MEDS: KCL 20 MEQ TAB (K-DUR) PO SCH (06:39)
[2019-03-03] MEDS: MULTIVIT W/MINERALS TAB (THERAGRAN M) PO SCH (06:39)
[2019-03-03] MEDS: PANTOPRAZOLE 20 MG TABLET (PROTONIX) PO SCH (06:39)
--- NOTE | 2019-03-03 08:55 | Physical Therapy Daily Note ---
PT Daily Note-Current Subjective Pt. agrees to Rx. States he is looking forward to going home and has help there every day. Pain Location: No Pain Reported Mental Status Patient Orientation: Person, Place, Time, Situation Transfers SCALE: Activities may be completed with or without assistive devices. 3-Umfbkziwsl-jialpde completes the activity by him/herself with no assistance from a helper. 5-Set-up or Clean-up Assistance-helper sets up or cleans up; patient completes activity. [place] assists only prior to or following the activity. 4-Supervision or Touching Assistance-helper provides verbal cues and/or t ouching/steadying and/or contact guard assistance as patient completes activity. Assistance may be provided throughout the activity or intermittently. 3-Partial/Moderate Assistance-helper does LESS THAN HALF the effort. [place] lifts, holds or supports trunk or limbs, but provides less than half the effort. 2-Substantial/Maximal Assistance-helper does MORE THAN HALF the effort. [place] lifts or holds trunk or limbs and provides more than half the effort. 1-Ufunfgkyk-ioariq does ALL the effort. Patient does none of the effort to complete the activity. Or, the assistance of 2 or more helpers is required for the patient to complete the activity. If activity was not attempted, code reason: 7-Patient Refused. 9-Not Applicable-not attempted and the patient did not perform the activity before the current illness, exacerbation or injury. 10-Not Attempted due to Environmental Limitations-(lack of equipment, weather restraints, etc.). 88-Not Attempted due to Medical Conditions or Safety Concerns. Transfers (B, C, W/C): 6 Roll Left to Right (QC): 6 Sit to Lying (QC): 6 Sit to Stand (QC): 6 Chair/Tkb-sb-Barya Xfer(QC): 6 Bed to/from Chair: 6 Car Transfer (QC): 6 Weight Bearing Right Lower Extremity: Right Weight Bearing/Tolerated Left Lower Extremity: Left Weight Bearing/Tolerated Gait Training Does the Patient Walk?: Yes Gait: 6 Walk 10 feet (QC): 6 Walk 50 ft with 2 Turns(QC): 6 Walk 150 ft (QC): 6 Walking 10ft/uneven surface-QC: 6 Gait Persons Needed: 0 Gait Assistive Device: FWW pt. manages extended O2 tubing well with many turns and maneuvers. Stair Training Stair Training: Handrails/: 2 handrails #of Steps: 5 1 Step (curb) (QC): 5 4 Steps (QC): 5 12 Steps (QC): 88 Stairs: Pattern: Step to Level of Assist: 5 skilled verbal instruction Balance Picking up an Object (QC): 88 Special Test Comments unsafe tot trial picking item from floor Exercises Seated Therapy Exercises: Ankle pumps, Sit to stand, Long arc quads, Hip flexion, Hip abd/add Seated Reps: 12 NuStep Minutes: 10 NuStep Workload: 5 Assessment Current Status: Good Progress pt. has daily assist at home and states he could have her longer each day if he needed to PT Group Home Goals Group Home Goals PT Pillow Agent Goals Time Frame: Mar 20, 2019 Sit to Lying (QC): 6 Lying-Sitting on Side/Bed(QC): 6 Sit to Stand (QC): 6 Roll Left to Right (QC): 6 Chair/Mqd-fe-Azqks Xfer(QC): 6 Car Transfer (QC): 6 Walk 10 feet (QC): 6 Walk 10ft-Uneven Surface(QC): 6 Walk 50ft with 2 Turns (QC): 6 Walk 150 ft (QC): 6 Gait Assistive Device: FWW Wheel 50 feet with 2 turns (QC: 9 1 Step (curb) (QC): 4 4 Steps (QC): 9 12 Steps (QC): 9 Picking up an Object (QC): 9 PT Plan Treatment/Plan Treatment Plan: Continue Plan of Care Treatment Plan: Bed Mobility, Concurrent Therapy, Education, Functional Activity Herrera, Functional Strength, Group Therapy, Gait, Safety, Therapeutic Exercise, Transfers Treatment Duration: Feb 26, 2019 Frequency: Modified Program (IRF) (04/11) Estimated Hrs Per Day: 1.5 hours per day Patient and/or Family Agrees t: Yes Safety Risks/Education Patient Education: Gait Training, Transfer Techniques, Steps, Correct Positioning, Disease Process, Safety Issues Teaching Recipient: Patient Teaching Methods: Demonstration, Discussion Response to Teaching: Verbalize Understanding, Return Demonstration, Reinforcement Needed Time/GCodes Time In: 805 Time Out: 855 Total Billed Treatment Time: 50 Total Billed Treatment 1,FA20m,EX15m,GT15m KYLER OSTELO BUS REPAIR SUPERVISOR Mar 03, 2019 08:55 POS
[2019-03-03] MEDS: LORATADINE (CLARITIN) 10 MG TAB PO SCH ×2 (09:32→20:19)
[2019-03-03] MEDS: CEFDINIR 300 MG (OMNICEF) CAP PO SCH ×2 (09:32→20:19)
[2019-03-03] MEDS: ASCORBIC ACID (VIT C) 500 MG TABLET PO SCH (09:32)
[2019-03-03] MEDS: ENOXAPARIN 40 MG/0.4 ML (LOVENOX) SYR SC SCH (09:32)
[2019-03-03] MEDS: amLODIPine 10 MG (NORVASC) TAB PO SCH (09:32)
[2019-03-03] MEDS: TAMSULOSIN 0.4 MG (FLOMAX) CAP PO SCH (09:32)
[2019-03-03] MEDS: GABAPENTIN 300 MG (NEURONTIN) CAP PO SCH ×3 (09:33→20:19)
[2019-03-03] MEDS: SENNA W/DOCUSATE (SENOKOT S) TABLET PO SCH ×2 (09:37→20:26)
[2019-03-03] MEDS: DICLOFENAC 1% GEL 100 GM (VOLTAREN) TUBE TOP SCH ×4 (09:37→20:25)
[2019-03-03] MEDS: PARoxetine 20 MG (PAXIL) TAB PO SCH (09:38)
[2019-03-03] MEDS: VILANTEROL TR IH SCH (09:41)
[2019-03-03] MEDS: UMECLIDINIUM BRM IH SCH (09:41)
--- NOTE | 2019-03-03 09:46 | Progress Note ---
ALLIE WHITEMED STUDENT 03/03/19 0946: Progress Note CC: PNA, hx of lung cancer HPI: 78m Presented to [place] ER with complaints of SOB, fever and not feeling well. In ER patient was found to have a pneumonia with elevated white count normal lactic acid but very debilitated in need of inpatient hospital stay with supportive care and IV antibiotics. Barriers: Pt has dizziness and instability while ambulating but this is stable for years Requires walker to ambulate Able to walk up steps with railings Has difficulty putting on footwear, donning pants and using the restroom on his own Does not require any medical equipment at home, already has a walker, two wheelchairs AMANDA SULLIVAN DO 03/03/19 2020: Supervisory-Addendum Brief Verification & Attestation Participated in pt care: history, MDM, physical Personally performed: exam, history, MDM, supervision of care Care discussed with: Medical Student Procedures: n/a Results interpretation: Verified all documentation Verification and Attestation of Medical Student E/M Service A medical student performed and documented this service in my presence. I reviewed and verified all information documented by the medical student and made modifications to such information, when appropriate. I personally performed the physical exam and medical decision making. Amanda Sullivan, Mar 03, 2019,20:20 ALLIE WHITE,MED STUDENT Mar 03, 2019 09:46 AMANDA NG DO Mar 03, 2019 20:20 POS
--- NOTE | 2019-03-03 10:38 | Occupational Ther Daily Note ---
OT Current Status-Daily Note Subjective Pt alert, lying in bed. Pt agrees to therapy. No c/o pain. Mental Status/Objective Patient Orientation: Person, Place, Time, Situation ADL-Treatment Pt agrees to shower. Pt able to set self up for meal and use regular utensils. Pt is retropulsive with sit to stand and balances self with back of legs on surface standing from. Pt able to complete own toileting with urinal except for emptying. Pt ambulated to bathroom with CGA then transferred to toilet. Pt able to complete own clothing manipulation and hygiene with SBA. Pt transferred into shower with SBA. Pt completed own shower with supervision. After set up pt able to complete dressing, upper body by self then SBA for lower body dressing. Completed grooming/oral care at sink in stance with chair behind to give support. Pt then ambulated back to recline to sit after therapy. Call light/phone in reach. Physician student in room. All needs met room. Therapy Code Descriptions/Definitions Functional [place] Measure: 0=Not Assessed/NA 4=Minimal Assistance 1=Total Assistance 5=Supervision or Setup 2=Maximal Assistance 6=Modified [place] 3=Moderate Assistance 7=Complete IndependenceSCALE: Activities may be completed with or without assistive devices. 2-Jbguzwnsan-sqaqysi completes the activity by him/herself with no assistance from a helper. 5-Set-up or Clean-up Assistance-helper sets up or cleans up; patient completes activity. [place] assists only prior to or following the activity. 4-Supervision or Touching Assistance-helper provides verbal cues and/or touching/steadying and/or contact guard assistance as patient completes activity. Assistance may be provided throughout the activity or intermittently. 3-Partial/Moderate Assistance-helper does LESS THAN HALF the effort. [place] lifts, holds or supports trunk or limbs, but provides less than half the effort. 2-Substantial/Maximal Assistance-helper does MORE THAN HALF the effort. [place] lifts or holds trunk or limbs and provides more than half the effort. 1-Wbmdikxyh-qgfelm does ALL the effort. Patient does none of the effort to complete the activity. Or, the assistance of 2 or more helpers is required for the patient to complete the activity. If activity was not attempted, code reason: 7-Patient Refused. 9-Not Applicable-not attempted and the patient did not perform the activity before the current illness, exacerbation or injury. 10-Not Attempted due to Environmental Limitations-(lack of equipment, weather restraints, etc.). 88-Not Attempted due to Medical Conditions or Safety Concerns. Eating (QC): 6 Oral Hygiene (QC): 6 Shower/Bathe Self (QC): 4 Upper Body Dressing (QC): 5 Lower Body Dressing (QC): 4 (Footwear (QC) 6) Toileting Hygiene (QC): 4 Toilet Transfer (QC): 4 OT Short Term Goals Short Term Goals 1=Demonstrate adherence to instructed precautions during ADL tasks. 2=Patient will verbalize/demonstrate understanding of assistive devices/modifications for ADL. 3=Patient will improve strength/tolerance for activity to enable patient to perform ADL's. OT Nursing Home Goals Nursing Home Goals Time Frame: Mar 18, 2019 Eating (QC): 6 Oral Hygiene (QC): 6 Shower/Bathe Self (QC): 5 Upper Body Dressing (QC): 6 Lower Body Dressing (QC): 6 On/Off Footwear (QC): 6 Toileting Hygiene (QC): 6 Toilet/Commode Transfer (QC): 6 Additional Goals: 1-Demonstrate ADL Tasks, 2-Verbalize Understanding, 3- ImproveStrength/[place] 1=Demonstrate adherence to instructed precautions during ADL tasks. 2=Patient will verbalize/demonstrate understanding of assistive devices/modifications for ADL. 3=Patient will improve strength/tolerance for activity to enable patient to perform ADL's. OT Education/Plan Problem List/Assessment Assessment: Decreased Activ Tolerance, Decreased UE Strength, Impaired Coordin ation, Impaired Funct Balance Pt demonstrates decreased ADL functioning, mobility, strength, and activity tolerance. Pt to benefit from skilled OT intervention for ADL training, transfers, strengthening, and safety education to increase level of independence and allow safe discharge plan. Discharge Recommendations Plan/Recommendations: Continue POC Treatment Plan/Plan of Care Patient would benefit from OT for education, treatment and training to promote independence in ADL's, mobility, safety and/or upper extremity function for ADL's. Plan of Care: ADL Retraining, Functional Mobility, Group Exercise/Act as Ind, UE Funct Exercise/Act Treatment Duration: Mar 18, 2019 Frequency: Modified Program (IRF) (04/11) Estimated Hrs Per Day: 1.5 hours per day Rehab Potential: Good (pt is motivated and compliant) Time/GCodes Start Time: 07:00 Stop Time: 08:00 Total Time Billed (hr/min): 60 Billed Treatment Time 1 visit-ADL 4 (60 min) GERMAIN BAR Mar 03, 2019 10:38 POS
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
[2019-03-03] MEDS: ONDANSETRON 4 MG (ZOFRAN) ORAL DISSOLVE TAB PO PRN (13:38)
--- NOTE | 2019-03-03 14:44 | Pulmonary Progress Note ---
Standard Progress Note Progress Notes Date Seen by Provider: Mar 03, 2019 Time Seen by Provider: 14:39 PT is sitting up in chair with 2L oxygen on and denies cough, f/ns/c. He denies being short of breath and denies wheezing or productive cough. He is unsure of what lung cancer type he takes but states he follows with oncology in [place] and takes "some chemo pill." Assessment & Plan Oxygen Dependent COPD -Continue Duoneb -pt has not been getting advair; has been getting anoro and duoneb but not frequent duoneb; can stop advair as pt has not been getting -Oxygen - has home o2 set up (will need education to wear with exertion) - CXR - No acute process Hx of lung cancer -Pt follows with oncology TU MACKAY APRN Mar 03, 2019 14:44 POS
--- NOTE | 2019-03-03 14:58 | Therapy Group Daily Note ---
Therapy Daily Group Note Patient Education Topic Other List Below (memory strategies and memory activity, antibacterials and handwashing) Exercises LE Seated Exercise, UE Exercise Session Ratio (pt:therapist): 4:1 Goal of Session: Memory Strategies, UE/LE Strengthing, Other (list) (knowledge of proper handwashing and antibacterials) Goal Met for this Session: Yes Pt Benefit of Group: F/U Use of Strategies @Home, Improved Cognition Other/Notes Pt. participated in group PT OT session this date. Pt. ambulated to from with FWW SBA . Pts. introduced selves and shared their place of as well as what they are most proud of. Pts. all participated in Safehouse tasting for the Safehouse contest and socialized. Hand washing and bacterial and viral infections was education topic with demonstration done and hand cleanser passed around. All equipment ie walkers and w/c arm rests were cleaned that were brought by pts. Memory strategies and memory activity was done today with focus on recalling and matching images. Pt.s also participated in seated U&L extremity exercises. Pt to room after group, call breaux at hand, needs met Start Time: 13:00 Stop Time: 14:15 Total Billed Treatment Time: 75 Total Billed Treatment 1,GRP KYLER SOTELO [employer] SALES REPRESENTATIVE Mar 03, 2019 14:58 POS
[2019-03-03 15:58] VITALS: BP 150/78
[2019-03-03 17:28] VITALS: BP 150/78
--- NOTE | 2019-03-03 19:25 | NUR ---
bedside report received from JOCELYN MARION, assume care of pt
--- NOTE | 2019-03-03 20:18 | NUR ---
pt refused senokot states had stools all day, Voltaren gel to rt knee reports pain level 4/10 on numeric scale
--- NOTE | 2019-03-03 20:22 | PM&R Progress Note ---
Subjective HPI/CC On Admission Date Seen by Provider: Mar 03, 2019 Time Seen by Provider: 08:15 Subjective/Events-last exam Maintain at [address] scan will be ordered by oncology Balance issues are improving but that is a chronic issue Wants to go home soon Checked meds and labs Reviewed therapy notes Conferred with stranding machine operator of Systems General: Fatigue Pulmonary: Dyspnea Objective Exam Vital Signs Vital Signs Date Time Temp Pulse Resp B/P (MAP) Pulse Ox O2 Delivery O2 Flow Rate FiO2 03/03/19 18:51 95 Nasal Cannula 2.00 03/03/19 17:28 36.6 75 18 150/78 (102) 02/27/19 15:17 36 Capillary Refill : General Appearance: No Apparent Distress, Anxious, Chronically ill, Thin HEENT: PERRL/EOMI, Normal ENT Inspection, Pharynx Normal Neck: Full Range of Motion, Normal Inspection, Non Tender, Supple, Carotid Bruit Respiratory: Chest Non Tender, No Accessory Muscle Use, No Respiratory Distress, Crackles, Decreased Breath Sounds Cardiovascular: Regular Rate, Rhythm, No Edema, No Gallop, No JVD, No Murmur, Normal Peripheral Pulses Gastrointestinal: Normal Bowel Sounds, No Organomegaly, No Pulsatile Mass, Non Tender, Soft Back: Normal Inspection, No CVA Tenderness, No Vertebral Tenderness Extremity: Normal Capillary Refill, Normal Inspection, Normal Range of Motion, Non Tender, No Calf Tenderness, No Pedal Edema Neurologic/Psychiatric: Alert, Oriented x3, No Motor/Sensory Deficits, Normal Mood/Affect, Motor Weakness (generalized weakness legs) Skin: Normal Color, Warm/Dry Lymphatic: No Adenopathy Results/Procedures Lab Laboratory Tests 03/03/19 04:40 Patient resulted labs reviewed. FIM Transfers Therapy Code Descriptions/Definitions Functional [place] Measure: 0=Not Assessed/NA 4=Minimal Assistance 1=Total Assistance 5=Supervision or Setup 2=Maximal Assistance 6=Modified [place] 3=Moderate Assistance 7=Complete IndependenceSCALE: Activities may be completed with or without assistive devices. 0-Nkymnhedmj-clertux completes the activity by him/herself with no assistance from a helper. 5-Set-up or Clean-up Assistance-helper sets up or cleans up; patient completes activity. [place] assists only prior to or following the activity. 4-Supervision or Touching Assistance-helper provides verbal cues and/or touching/steadying and/or contact guard assistance as patient completes activity. Assistance may be provided throughout the activity or intermittently. 3-Partial/Moderate Assistance-helper does LESS THAN HALF the effort. [place] lifts, holds or supports trunk or limbs, but provides less than half the effort. 2-Substantial/Maximal Assistance-helper does MORE THAN HALF the effort. [place] lifts or holds trunk or limbs and provides more than half the effort. 1-Mnejbuwcd-ibzquf does ALL the effort. Patient does none of the effort to complete the activity. Or, the assistance of 2 or more helpers is required for the patient to complete the activity. If activity was not attempted, code reason: 7-Patient Refused. 9-Not Applicable-not attempted and the patient did not perform the activity before the current illness, exacerbation or injury. 10-Not Attempted due to Environmental Limitations-(lack of equipment, weather restraints, etc.). 88-Not Attempted due to Medical Conditions or Safety Concerns. Transfers (B, C, W/C) (FIM): 6 Roll Left to Right (QC): 6 Sit to Lying (QC): 6 Sit to Stand (QC): 6 Chair/Sbx-py-Tzowj Xfer(QC): 6 Bed to/from Chair: 6 Car Transfer (QC): 6 Gait Training Does the Patient Walk?: Yes Gait (FIM): 6 Distance (FIM): 7=170-72 ft Distance: 350, 200 Walk 10 feet (QC): 6 Walk 50 ft with 2 Turns(QC): 6 Walk 150 ft (QC): 6 Walking 10ft/uneven surface-QC: 6 Gait Persons Needed: 0 Gait Assistive Device: FWW Wheelchair Training Does the Pt Use a Wheelchair?: Yes Wheelchair Distance: 3=150 ft Wheel 50 ft with 2 turns (QC): 6 Wheel 150 ft (QC): 6 Type of Wheelchair: Manual Stair Training Stair Training: Handrails/: 2 handrails #of Steps: 5 1 Step (curb) (QC): 5 4 Steps (QC): 5 12 Steps (QC): 88 Stairs: Pattern: Step to Level of Assist: 5 Balance Picking up an Object (QC): 88 ADL-Treatment Eating (QC): 6 Oral Hygiene (QC): 6 Shower/Bathe Self (QC): 4 Upper Body Dressing (QC): 5 Lower Body Dressing (QC): 4 (Footwear (QC) 6) On/Off Footwear (QC): 3 Toileting Hygiene (QC): 4 Toilet Transfer (QC): 4 Assessment/Plan Assessment and Plan Assess & Plan/Chief Complaint Assessment: Chemotherapy weakness Pneumonia Hypoxia Lung cancer HTN Chronic pain Plan: 04/11 IRF Monitor weakness closely Appreciate Dr Rodríguez Check labs today Getting close to baseline (1) Generalized weakness Status: Acute (2) Left upper lobe pneumonia Status: Acute (3) Nausea & vomiting Status: Resolved Resolution Date/Time: 11/18/18 @ 15:27 (4) Urinary incontinence (5) Hypokalemia Status: Acute (6) DVT prophylaxis Status: Acute (7) Essential (primary) hypertension Status: Chronic (8) Anemia (9) Myopathy (10) Lung cancer Status: Chronic (11) Debility Status: Chronic (12) Chronic pain Status: Chronic (13) TBI (traumatic brain injury) Status: Chronic (14) RESPIRATORY FAILURE, UNSP, UNSP W HYPOXIA OR HYPERCAPNIA Status: Acute BEBETO OLIVAREZ DO Mar 03, 2019 20:21 POS
--- NOTE | 2019-03-03 20:42 | NUR ---
rates pain to rt knee at 2/10 on numeric scale
[2019-03-04] MEDS: ARTIFICAL TEARS 0.4 ML UNIT DOSE (REFRESH PLUS) OD SCH ×12 (02:00→22:00)
[2019-03-04] MEDS: RT-ALBUTEROL/IPRATROPIUM 3 ML (DUONEB) VIAL INH SCH ×4 (02:17→20:37)
[2019-03-04 05:48] VITALS: BP 137/76
[2019-03-04 05:50] VITALS: BP 149/65
[2019-03-04] MEDS: KCL 20 MEQ TAB (K-DUR) PO SCH (06:37)
[2019-03-04] MEDS: MULTIVIT W/MINERALS TAB (THERAGRAN M) PO SCH (06:37)
[2019-03-04] MEDS: PANTOPRAZOLE 20 MG TABLET (PROTONIX) PO SCH (06:38)
--- NOTE | 2019-03-04 07:21 | NUR ---
bedside report given to JOCELYN MARION
[2019-03-04] MEDS: CEFDINIR 300 MG (OMNICEF) CAP PO SCH ×2 (08:12→19:49)
[2019-03-04] MEDS: fentaNYL PATCH 100 MCG (DURAGESIC) TD SCH (08:12)
[2019-03-04] MEDS: PARoxetine 20 MG (PAXIL) TAB PO SCH (08:13)
[2019-03-04] MEDS: ASCORBIC ACID (VIT C) 500 MG TABLET PO SCH (08:13)
[2019-03-04] MEDS: LORATADINE (CLARITIN) 10 MG TAB PO SCH ×2 (08:13→19:49)
[2019-03-04] MEDS: GABAPENTIN 300 MG (NEURONTIN) CAP PO SCH ×3 (08:13→19:49)
[2019-03-04] MEDS: TAMSULOSIN 0.4 MG (FLOMAX) CAP PO SCH (08:13)
[2019-03-04] MEDS: amLODIPine 10 MG (NORVASC) TAB PO SCH (08:13)
--- NOTE | 2019-03-04 08:27 | PM&R Progress Note ---
Subjective HPI/CC On Admission Date Seen by Provider: Mar 04, 2019 Time Seen by Provider: 08:30 Subjective/Events-last exam Pt doing pretty well. Okay with discharge plan for tomorrow Home health ordered. Phone was not working but it appears that it is working now. Overall talked to him about good nutrition and avoiding crowds to try to prevent upper respiratory infections. He will follow up with Dr. Katz for repeats CT scan. Checked meds and labs Reviewed therapy notes Conferred with pediatric acute care unit nurse of Systems General: Fatigue Pulmonary: Dyspnea Objective Exam Vital Signs Vital Signs Date Time Temp Pulse Resp B/P (MAP) Pulse Ox O2 Delivery O2 Flow Rate FiO2 03/04/19 18:20 36.0 71 14 128/71 (90) 97 Room Air 03/04/19 13:54 2.00 02/27/19 15:17 36 Capillary Refill : General Appearance: No Apparent Distress, Anxious, Chronically ill, Thin HEENT: PERRL/EOMI, Normal ENT Inspection, Pharynx Normal Neck: Full Range of Motion, Normal Inspection, Non Tender, Supple, Carotid Bruit Respiratory: Chest Non Tender, Lungs Clear, Normal Breath Sounds, No Accessory Muscle Use, No Respiratory Distress Cardiovascular: Regular Rate, Rhythm, No Edema, No Gallop, No JVD, No Murmur, Normal Peripheral Pulses Gastrointestinal: Normal Bowel Sounds, No Organomegaly, No Pulsatile Mass, Non Tender, Soft Back: Normal Inspection, No CVA Tenderness, No Vertebral Tenderness Extremity: Normal Capillary Refill, Normal Inspection, Normal Range of Motion, Non Tender, No Calf Tenderness, No Pedal Edema Neurologic/Psychiatric: Alert, Oriented x3, No Motor/Sensory Deficits, Normal Mood/Affect, Motor Weakness (generalized weakness legs) Skin: Normal Color, Warm/Dry Lymphatic: No Adenopathy Results/Procedures Lab Patient resulted labs reviewed. FIM Transfers Therapy Code Descriptions/Definitions Functional [place] Measure: 0=Not Assessed/NA 4=Minimal Assistance 1=Total Assistance 5=Supervision or Setup 2=Maximal Assistance 6=Modified [place] 3=Moderate Assistance 7=Complete IndependenceSCALE: Activities may be completed with or without assistive devices. 5-Jixnenhmem-hygrqun completes the activity by him/herself with no assistance from a helper. 5-Set-up or Clean-up Assistance-helper sets up or cleans up; patient completes activity. [place] assists only prior to or following the activity. 4-Supervision or Touching Assistance-helper provides verbal cues and/or touching/steadying and/or contact guard assistance as patient completes activity. Assistance may be provided throughout the activity or intermittently. 3-Partial/Moderate Assistance-helper does LESS THAN HALF the effort. [place] lifts, holds or supports trunk or limbs, but provides less than half the effort. 2-Substantial/Maximal Assistance-helper does MORE THAN HALF the effort. [place] lifts or holds trunk or limbs and provides more than half the effort. 2-Zokfzdfug-orwcrk does ALL the effort. Patient does none of the effort to complete the activity. Or, the assistance of 2 or more helpers is required for the patient to complete the activity. If activity was not attempted, code reason: 7-Patient Refused. 9-Not Applicable-not attempted and the patient did not perform the activity before the current illness, exacerbation or injury. 10-Not Attempted due to Environmental Limitations-(lack of equipment, weather restraints, etc.). 88-Not Attempted due to Medical Conditions or Safety Concerns. Transfers (B, C, W/C) (FIM): 6 Roll Left to Right (QC): 6 Sit to Lying (QC): 6 Sit to Stand (QC): 6 Chair/Huo-rs-Wlyhn Xfer(QC): 6 Bed to/from Chair: 6 Car Transfer (QC): 6 Gait Training Does the Patient Walk?: Yes Gait (FIM): 6 Distance (FIM): 8=816-26 ft Distance: 350, 200 Walk 10 feet (QC): 6 Walk 50 ft with 2 Turns(QC): 6 Walk 150 ft (QC): 6 Walking 10ft/uneven surface-QC: 6 Gait Persons Needed: 0 Gait Assistive Device: FWW Wheelchair Training Does the Pt Use a Wheelchair?: Yes Wheelchair Distance: 3=150 ft Wheel 50 ft with 2 turns (QC): 6 Wheel 150 ft (QC): 6 Type of Wheelchair: Manual Stair Training Stair Training: Handrails/: 2 handrails #of Steps: 5 1 Step (curb) (QC): 5 4 Steps (QC): 5 12 Steps (QC): 88 Stairs: Pattern: Step to Level of Assist: 5 Balance Picking up an Object (QC): 88 ADL-Treatment Eating (QC): 6 Oral Hygiene (QC): 6 Shower/Bathe Self (QC): 4 Upper Body Dressing (QC): 5 Lower Body Dressing (QC): 4 (Footwear (QC) 6) On/Off Footwear (QC): 3 Toileting Hygiene (QC): 4 Toilet Transfer (QC): 4 Assessment/Plan Assessment and Plan Assess & Plan/Chief Complaint Assessment: Chemotherapy weakness Pneumonia Hypoxia Lung cancer HTN Chronic pain Plan: 04/11 IRF Monitor weakness closely Appreciate Dr Anne BASS tomorrow Getting close to baseline (1) Generalized weakness Status: Acute (2) Left upper lobe pneumonia Status: Acute (3) Nausea & vomiting Status: Resolved Resolution Date/Time: 11/18/18 @ 15:27 (4) Urinary incontinence (5) Hypokalemia Status: Acute (6) DVT prophylaxis Status: Acute (7) Essential (primary) hypertension Status: Chronic (8) Anemia (9) Myopathy (10) Lung cancer Status: Chronic (11) Debility Status: Chronic (12) Chronic pain Status: Chronic (13) TBI (traumatic brain injury) Status: Chronic (14) RESPIRATORY FAILURE, UNSP, UNSP W HYPOXIA OR HYPERCAPNIA Status: Acute BEBETO OLIVAREZ DO Mar 04, 2019 08:27 POS
[2019-03-04] MEDS: DICLOFENAC 1% GEL 100 GM (VOLTAREN) TUBE TOP SCH ×4 (08:30→20:33)
--- NOTE | 2019-03-04 08:53 | Occupational Ther Daily Note ---
OT Current Status-Daily Note Subjective Pt alert, lying in bed. Pt agrees to therapy. No c/o pain at this time. Pt is c/o about itching after having SCD's on over night, reported to nrsg and applied ointment. Mental Status/Objective Patient Orientation: Person, Place, Time, Situation ADL-Treatment Supine to EOB by self, placed urinal and assist to empty. Pt does have retropulsive tendencies though pt is aware and compensates for this. Pt ambulated to bathroom and transferred to toilet using FWW and grabbars, modified independent. Completed hygiene and clothing manipulation using FWW and grabbars, modified independent. Pt completed shower using shower bench, grabba rs and hand held shower, modified independent. After set up, pt able to complete own upper/lower body dressing. Pt stood at sink to complete own grooming using FWW, modified independent. After therapy, pt sitting in recliner with call light/phone in reach. All needs met in room. Therapy Code Descriptions/Definitions Functional [place] Measure: 0=Not Assessed/NA 4=Minimal Assistance 1=Total Assistance 5=Supervision or Setup 2=Maximal Assistance 6=Modified [place] 3=Moderate Assistance 7=Complete IndependenceSCALE: Activities may be completed with or without assistive devices. 0-Binmvajvbs-pdwsooc completes the activity by him/herself with no assistance from a helper. 5-Set-up or Clean-up Assistance-helper sets up or cleans up; patient completes activity. [place] assists only prior to or following the activity. 4-Supervision or Touching Assistance-helper provides verbal cues and/or touching/steadying and/or contact guard assistance as patient completes activity. Assistance may be provided throughout the activity or intermittently. 3-Partial/Moderate Assistance-helper does LESS THAN HALF the effort. [place] lifts, holds or supports trunk or limbs, but provides less than half the effort. 2-Substantial/Maximal Assistance-helper does MORE THAN HALF the effort. [place] l ifts or holds trunk or limbs and provides more than half the effort. 8-Cmydnycpn-bvhyzt does ALL the effort. Patient does none of the effort to complete the activity. Or, the assistance of 2 or more helpers is required for the patient to complete the activity. If activity was not attempted, code reason: 7-Patient Refused. 9-Not Applicable-not attempted and the patient did not perform the activity before the current illness, exacerbation or injury. 10-Not Attempted due to Environmental Limitations-(lack of equipment, weather restraints, etc.). 88-Not Attempted due to Medical Conditions or Safety Concerns. Eating (QC): 6 (Pt able to complete own meal set up and use regular utensils to eat.) Oral Hygiene (QC): 6 Shower/Bathe Self (QC): 6 Upper Body Dressing (QC): 5 Lower Body Dressing (QC): 5 (Footwear (QC) 6) Toileting Hygiene (QC): 6 Toilet Transfer (QC): 6 OT Short Term Goals Short Term Goals 1=Demonstrate adherence to instructed precautions during ADL tasks. 2=Patient will verbalize/demonstrate understanding of assistive devices/modifications for ADL. 3=Patient will improve strength/tolerance for activity to enable patient to perform ADL's. OT Usp Goals Belting Inspector Goals Time Frame: Mar 18, 2019 Eating (QC): 6 Oral Hygiene (QC): 6 Shower/Bathe Self (QC): 5 Upper Body Dressing (QC): 6 Lower Body Dressing (QC): 6 On/Off Footwear (QC): 6 Toileting Hygiene (QC): 6 Toilet/Commode Transfer (QC): 6 Additional Goals: 1-Demonstrate ADL Tasks, 2-Verbalize Understanding, 3- ImproveStrength/[place] 1=Demonstrate adherence to instructed precautions during ADL tasks. 2=Patient will verbalize/demonstrate understanding of assistive devices/modifications for ADL. 3=Patient will improve strength/tolerance for activity to enable patient to perform ADL's. OT Education/Plan Problem List/Assessment Assessment: Decreased Activ Tolerance Pt demonstrates decreased ADL functioning, mobility, strength, and activity tolerance. Pt to benefit from skilled OT intervention for ADL training, transfers, strengthening, and safety education to increase level of independence and allow safe discharge plan. Discharge Recommendations Plan/Recommendations: Continue POC Treatment Plan/Plan of Care Patient would benefit from OT for education, treatment and training to promote independence in ADL's, mobility, safety and/or upper extremity function for ADL's. Plan of Care: ADL Retraining, Functional Mobility, Group Exercise/Act as Ind, UE Funct Exercise/Act Treatment Duration: Mar 18, 2019 Frequency: Modified Program (IRF) (04/11) Estimated Hrs Per Day: 1.5 hours per day Rehab Potential: Good (pt is motivated and compliant) Time/GCodes Start Time: 07:30 Stop Time: 08:45 Total Time Billed (hr/min): 75 Billed Treatment Time 1 visit-ADL 5 (75 min) GERMAIN BAR Mar 04, 2019 08:53 POS
--- NOTE | 2019-03-04 08:53 | NUR ---
RD ASSESSMENT PMHx: COPD; HTN; TBI; CA(lung) PT INTERACTION: Pt was awake and pleasant for nutrition follow-up. Pt states he has been eating well since last assessment. Note pt avg PO intake of >75% x7d, per chart review. Pt states no issues with n/v/c/d since last assessment. Note last BM was 03/03 and pt currently on bowel regimen of senna, colace, per chart review. ABNORMAL NUTRITION-RELATED LAB VALUES: labs WNL Est. kcal needs: 3505-1967 kcal (20-25 kcal/kg) Est. Pro needs: 72-86 g Pro (1.0-1.2 g Pro/kg) PES STATEMENT: Given current PO intake, no nutrition diagnosis at this time (NO-1.1) INTERVENTION: Continue with current diet order of Regular diet. From nutrition standpoint, pt is eating well and ready for discharge. MONITOR/EVALUATE: PO Intake; Plan of Care; Hydration Status; Weight Status; Lab Values Trevor Mccullough, MS, RD, LD
[2019-03-04] MEDS: FENTANYL PATCH REMOVAL TP SCH (09:00)
[2019-03-04] MEDS ORDERED: DICL100G18 TOP (09:10)
--- NOTE | 2019-03-04 09:12 | D/C HH Face to Face Order ---
D/C HH Face to Face Orders Reconcile Patient Problems Problems Reviewed?: Yes Instructions for Patient HH Patient Instructions/FollowUp: Dr Paredes 1 week Physician to follow Patient: Dr Paredes Discharge Diet for Home: No Restrictions Patient Problems: Pneumonia Lung cancer Goals for Patient: Return to independent living Patient Data-Allergies,Ht & Wt Patient Allergies: Coded Allergies: baclofen (Verified Allergy, Unknown, 11/24/18) metoclopramide (Verified Allergy, Unknown, 11/24/18) Height (Feet): 5 Height (Inches): 11.00 Weight (Pounds): 165 Weight (Ounces): 8.0 Home Health Need/Face to Face Date of Face to Face: Mar 04, 2019 Clinical Findings: Generalized weakness and fatigue, Immune-compromised, Instability, Muscle weakness, Shortness of breath, Unsteady gait I have seen Pt awug-yx-hitg: Yes Discharged To: Home Diagnosis/Conditions: Pneumonia Lung cancer Patient is Homebound due to: Jessica fall risk due to instabilty, Muscle weakness, Pain w/ambulation, Shortness of breath/distress Homebound Status Due to the above stated illness, injury or surgical procedure (medical condition or diagnosis) and associated clinical findings, the patient is rosa ebound because of his/her inability to leave home except with aid of a supportive device and/or person AND leaving the home requires a considerable and taxing effort or is medically contraindicated. Pt req the following assistanc: Walker Home Health Nursing Orders Home Health Services Order: Nursing Services, Sap Bi Architect-Evaluate & Treat, Physical Therapy-Evaluate & Treat Certify Stmt I certify that this patient is under my care and that I, a nurse practitioner or a physician; a refinery operator assistant working with me, had a face to face encounter that - meets the physician face to face encounter requirements with this patient as dated. BEBETO OLIVAREZ DO Mar 04, 2019 09:12 POS
[2019-03-04] MEDS: SENNA W/DOCUSATE (SENOKOT S) TABLET PO SCH ×2 (09:40→19:49)
[2019-03-04] MEDS: VILANTEROL TR IH SCH (09:43)
[2019-03-04] MEDS: UMECLIDINIUM BRM IH SCH (09:43)
[2019-03-04] MEDS: ENOXAPARIN 40 MG/0.4 ML (LOVENOX) SYR SC SCH (09:46)
--- NOTE | 2019-03-04 10:08 | Physical Therapy Daily Note ---
PT Daily Note-Current Subjective Pt agreeable to PT session. Pain Numeric Pain Scale: 0-No Pain Appearance Pt sitting up in recliner upon arrival, awake and alert. Pt requesting and assisted to restroom during tx session. Mod I with rehan care/toileting. At end of session, pt sitting up in recliner with call light, phone and bedside table within reach Mental Status Patient Orientation: Person, Place, Time, Eyes Open, Situation Attachments: Oxygen (2 L/NC) Transfers SCALE: Activities may be completed with or without assistive devices. 4-Vfvmqsuers-wvkdxxi completes the activity by him/herself with no assistance from a helper. 5-Set-up or Clean-up Assistance-helper sets up or cleans up; patient completes activity. [place] assists only prior to or following the activity. 4-Supervision or Touching Assistance-helper provides verbal cues and/or touching/steadying and/or contact guard assistance as patient completes activity. Assistance may be provided throughout the activity or intermittently. 3-Partial/Moderate Assistance-helper does LESS THAN HALF the effort. [place] lifts, holds or supports trunk or limbs, but provides less than half the effort. 2-Substantial/Maximal Assistance-helper does MORE THAN HALF the effort. [place] lifts or holds trunk or limbs and provides more than half the effort. 5-Ghliqyyhh-sxdycf does ALL the effort. Patient does none of the effort to complete the activity. Or, the assistance of 2 or more helpers is required for the patient to complete the activity. If activity was not attempted, code reason: 7-Patient Refused. 9-Not Applicable-not attempted and the patient did not perform the activity before the current illness, exacerbation or injury. 10-Not Attempted due to Environmental Limitations-(lack of equipment, weather restraints, etc.). 88-Not Attempted due to Medical Conditions or Safety Concerns. Roll Left to Right (QC): 6 Sit to Lying (QC): 6 Sit to Stand (QC): 6 Chair/Jqp-av-Idbdd Xfer(QC): 5 Car Transfer (QC): 5 skilled inst x1 episode to maintain WB toward toes as pt has occasional tendency with WB through heels with slight retro unsteadiness Weight Bearing Right Lower Extremity: Right Weight Bearing/Tolerated Left Lower Extremity: Left Weight Bearing/Tolerated Gait Training Does the Patient Walk?: Yes Walk 10 feet (QC): 6 Walk 50 ft with 2 Turns(QC): 6 Walk 150 ft (QC): 6 Walking 10ft/uneven surface-QC: 4 (supervision for slight unsteadiness, no LOB, no physical assist required) Gait Persons Needed: 1 (assisted with O2 tank) Gait Assistive Device: FWW occasional tendency with min unsteadiness with WB back on heels, LE IR, fair pace, fwd flexed posture, inst for posture and WB toward toes more Stair Training Stair Training: Handrails/: 2 handrails #of Steps: 12 1 Step (curb) (QC): 6 4 Steps (QC): 6 12 Steps (QC): 6 Stairs: Pattern: Step to Pt demo safe technique ascending and descending stairs without assist Balance Picking up an Object (QC): 6 Exercises NuStep Workload: 6 (seat and arms 10) Neuromuscular balance activities in // bars, without UE assist and with occasional unilat UE support, standing on Airex 2 min x2, high knee march on airex, stepping over various objects, fwd and retro gait Treatments education, toileting, hand washing, bed chair and car transfers, bed mobility, gait, balance/neuromuscular guevara, picking up objects from floor, stair training, curb training, uneven surfaces, functional mobility, activity tolerance Assessment Current Status: Good Progress PT Care Home Goals Care Home Goals PT Gate Person Goals Time Frame: Mar 20, 2019 Sit to Lying (QC): 6 Lying-Sitting on Side/Bed(QC): 6 Sit to Stand (QC): 6 Roll Left to Right (QC): 6 Chair/Ypn-dm-Kgnks Xfer(QC): 6 Car Transfer (QC): 6 Walk 10 feet (QC): 6 Walk 10ft-Uneven Surface(QC): 6 Walk 50ft with 2 Turns (QC): 6 Walk 150 ft (QC): 6 Gait Assistive Device: FWW Wheel 50 feet with 2 turns (QC: 9 1 Step (curb) (QC): 4 4 Steps (QC): 9 12 Steps (QC): 9 Picking up an Object (QC): 9 PT Plan Treatment/Plan Treatment Plan: Continue Plan of Care Treatment Plan: Bed Mobility, Concurrent Therapy, Education, Functional Activity Herrera, Functional Strength, Group Therapy, Gait, Safety, Therapeutic Exercise, Transfers Treatment Duration: Feb 26, 2019 Frequency: Modified Program (IRF) (04/11) Estimated Hrs Per Day: 1.5 hours per day Patient and/or Family Agrees t: Yes Safety Risks/Education Patient Education: Gait Training, Transfer Techniques, Steps, Safety Issues Teaching Recipient: Patient Teaching Methods: Discussion Response to Teaching: Verbalize Understanding, Return Demonstration Time/GCodes Time In: 1000 Time Out: 1100 Total Billed Treatment Time: 60 Total Billed Treatment 1 visit, EX x20 min, GT x15 min, FA x15 min, NM x10 min STEVE MONK KNOT CUTTER Mar 04, 2019 10:08 POS
--- NOTE | 2019-03-04 11:07 | Progress Note ---
ALLIE WHITE MED STUDENT 03/04/19 1107: Progress Note Hospital Course: 78 yo male presented to [place] ED with SOB, fever and malaise and a positive history of lung cancer. He was diagnosed with pneumonia and transferred to [facility], where he received IV antibiotics and supportive care for two days. Due to pts decreased ADLs and comorbidities, the decision to continue supportive therapy and antibiotics in the inpatient rehab facility was made. Pt received approximately 180 minutes of PT, OT and group therapy for four days. He was discharged with instructions to follow up with his oncologist. AMANDA SULLIVAN DO 03/04/192021: Supervisory-Addendum Brief Verification & Attestation Participated in pt care: history, MDM, physical Personally performed: exam, history, MDM, supervision of care Care discussed with: Medical Student Procedures: n/a Results interpretation: Verified all documentation Verification and Attestation of Medical Student E/M Service A medical student performed and documented this service in my presence. I reviewed and verified all information documented by the medical student and made modifications to such information, when appropriate. I personally performed the physical exam and medical decision making. Amanda Sullivan, Mar 04, 2019,20:22 ALLIE WHITE MED STUDENT Mar 04, 2019 11:07 AMANDA NG DO Mar 04, 2019 20:22 POS
--- NOTE | 2019-03-04 11:29 | Speech Therapy Daily Note ---
Speech Daily Progress Note Subjective Date Seen by Provider: Mar 04, 2019 Time Seen by Provider: 00:30 Patient sitting in his recliner after his OT session and taking a shower. He reports he is going home tomorrow. Objective Patient completed a series of problem solving activities for meeting her needs safely upon his return home at 95% with 5% cues. Assessment Assessment Current Status: Good Progress Treatment Plan Discontinue ST, Goals Met Speech Short Term Goals Short Term Goals Short Term Goals 1) The patient will complete memory tasks related to his daily living skills at 90% or greater given 10% or less cues. 2) The patient will complete problem solving tasks related to his daily living skills at 90% or greater given 10% or less cues. 3) The patient will complete safety awareness tasks related to his daily living skills at 90% or greater given 10% or less cues. Speech Creative Recruiter Goals Longterm Goals The patient will improve his cognitive-communication abilities in order to complete daily living tasks with minimal assist. Speech-Plan Patient/Family Goals Patient/Family Goals: Patient is scheduled to return home tomorrow. Treatment Plan Speech Therapy Treatment Plan: Discontinue ST, Goals Met Patient has made good progress and has met ST goals. Treatment Duration: Mar 05, 2019 Frequency: 5 times per week Estimated Hrs Per Day: .5 hour per day Rehab Potential: Good (pt is motivated and compliant) Barriers to Learning: Patient has mild cognitive deficits, however much has resolved post admit Pt/Family Agrees to Plan: Yes Safety Risks/Education Teaching Recipient: Patient Teaching Methods: Demonstration, Discussion Response to Teaching: Verbalize Understanding, Return Demonstration Education Topics Provided: Continued safety upon his return home. Time Speech Therapy Time In: 09:00 Speech Therapy Time Out: 09:30 Total Billed Time: 30 Billed Treatment Time 1, SLLIEN Crow Mar 04, 2019 11:29 POS
--- NOTE | 2019-03-04 14:49 | Physical Therapy Daily Note ---
PT Daily Note-Current Subjective Patient agrees to PT at this time. Patient would mainly like to go for a walk. Reports no pain. Pain Numeric Pain Scale: 0-No Pain Location: No Pain Reported Mental Status Patient Orientation: Normal For Age Attachments: Oxygen (2L) Transfers SCALE: Activities may be completed with or without assistive devices. 3-Azcmwtxgly-zfguktf completes the activity by him/herself with no assistance from a helper. 5-Set-up or Clean-up Assistance-helper sets up or cleans up; patient completes activity. [place] assists only prior to or following the activity. 4-Supervision or Touching Assistance-helper provides verbal cues and/or touching/steadying and/or contact guard assistance as patient completes activity. Assistance may be provided throughout the activity or intermittently. 3-Partial/Moderate Assistance-helper does LESS THAN HALF the effort. [place] lifts, holds or supports trunk or limbs, but provides less than half the effort. 2-Substantial/Maximal Assistance-helper does MORE THAN HALF the effort. [place] lifts or holds trunk or limbs and provides more than half the effort. 4-Jrwhcrcew-qlfnyy does ALL the effort. Patient does none of the effort to complete the activity. Or, the assistance of 2 or more helpers is required for the patient to complete the activity. If activity was not attempted, code reason: 7-Patient Refused. 9-Not Applicable-not attempted and the patient did not perform the activity befo re the current illness, exacerbation or injury. 10-Not Attempted due to Environmental Limitations-(lack of equipment, weather re straints, etc.). 88-Not Attempted due to Medical Conditions or Safety Concerns. Sit to Stand (QC): 6 Weight Bearing Right Lower Extremity: Right Weight Bearing/Tolerated Left Lower Extremity: Left Weight Bearing/Tolerated Gait Training Does the Patient Walk?: Yes Gait: 6 Distance: 400' Walk 10 feet (QC): 6 Walk 50 ft with 2 Turns(QC): 6 Walk 150 ft (QC): 6 Gait Assistive Device: FWW L toe in; difficulty avoiding corners or objects with walker Assessment Patient stood and then ambulated 400' with FWW independently. Patient rested in chair for 2 minutes before ambulating another 200'. During ambulation, patient had mild difficulty avoiding tight corners or the edge of objects with walker. Patient performed toileting independently. Patient seated in chair at conclusion of treatment for breathing tx. PT Checkering Machine Adjuster Goals Checkering Machine Adjuster Goals PT Checkering Machine Adjuster Goals Time Frame: Mar 20, 2019 Sit to Lying (QC): 6 Lying-Sitting on Side/Bed(QC): 6 Sit to Stand (QC): 6 Roll Left to Right (QC): 6 Chair/Iag-ew-Rqpun Xfer(QC): 6 Car Transfer (QC): 6 Walk 10 feet (QC): 6 Walk 10ft-Uneven Surface(QC): 6 Walk 50ft with 2 Turns (QC): 6 Walk 150 ft (QC): 6 Gait Assistive Device: FWW Wheel 50 feet with 2 turns (QC: 9 1 Step (curb) (QC): 4 4 Steps (QC): 9 12 Steps (QC): 9 Picking up an Object (QC): 9 PT Plan Treatment/Plan Treatment Plan: Continue Plan of Care Treatment Plan: Bed Mobility, Concurrent Therapy, Education, Functional Activity Herrera, Functional Strength, Group Therapy, Gait, Safety, Therapeutic Exercise, Transfers Treatment Duration: Feb 26, 2019 Frequency: Modified Program (IRF) (04/11) Estimated Hrs Per Day: 1.5 hours per day Patient and/or Family Agrees t: Yes Time/GCodes Time In: 1340 Time Out: 1355 Total Billed Treatment Time: 15 Total Billed Treatment 1 visit FA 15min CRISTINO TIERNEY PT Mar 04, 2019 14:49 POS
[2019-03-04 16:20] VITALS: BP 128/71
[2019-03-04 18:20] VITALS: BP 128/71
[2019-03-05] MEDS: ARTIFICAL TEARS 0.4 ML UNIT DOSE (REFRESH PLUS) OD SCH ×8 (02:00→14:39)
[2019-03-05] MEDS: RT-ALBUTEROL/IPRATROPIUM 3 ML (DUONEB) VIAL INH SCH ×2 (02:28→09:59)
[2019-03-05 05:06] VITALS: BP 135/62
[2019-03-05] MEDS: KCL 20 MEQ TAB (K-DUR) PO SCH (06:00)
[2019-03-05] MEDS: PANTOPRAZOLE 20 MG TABLET (PROTONIX) PO SCH (06:00)
[2019-03-05] MEDS: MULTIVIT W/MINERALS TAB (THERAGRAN M) PO SCH (06:00)
[2019-03-05] MEDS: amLODIPine 10 MG (NORVASC) TAB PO SCH (08:33)
[2019-03-05] MEDS: PARoxetine 20 MG (PAXIL) TAB PO SCH (08:33)
[2019-03-05] MEDS: GABAPENTIN 300 MG (NEURONTIN) CAP PO SCH ×2 (08:33→12:14)
[2019-03-05] MEDS: TAMSULOSIN 0.4 MG (FLOMAX) CAP PO SCH (08:33)
[2019-03-05] MEDS: CEFDINIR 300 MG (OMNICEF) CAP PO SCH (08:33)
[2019-03-05] MEDS: ASCORBIC ACID (VIT C) 500 MG TABLET PO SCH (08:33)
[2019-03-05] MEDS: LORATADINE (CLARITIN) 10 MG TAB PO SCH (08:34)
[2019-03-05] MEDS: DICLOFENAC 1% GEL 100 GM (VOLTAREN) TUBE TOP SCH ×2 (08:34→12:15)
[2019-03-05] MEDS: SENNA W/DOCUSATE (SENOKOT S) TABLET PO SCH (08:34)
--- NOTE | 2019-03-05 08:34 | NUR ---
Initial visit by Gi Physicianalison Farah: engaged is rapport building and provided active listening as pt shared about his experience with cancer. Pt is Baptism and expresses appreciation for packer sausage and wiener support.
[2019-03-05] MEDS: UMECLIDINIUM BRM IH SCH (08:35)
[2019-03-05] MEDS: VILANTEROL TR IH SCH (08:35)
--- NOTE | 2019-03-05 10:02 | Therapy Team Discharge Summary ---
Therapy Discharge Summary Discharge Recommendations Date of Discharge Occupational Therapy Decreased Activ Tolerance Speech-Language Pathology Patient is a 78 year old male who was admitted to the ARU due to pneumonia. Patient was given the SLUMS with a mild deficit in cognitive function noted. Patient received skilled ST with focus on safety awareness and independence. Patient met all ST goals. Patient is discharging to home with family this date. He is discharged from skilled ST as well. PT Grinding Machine Operator Automatic Goals Shelter Goals PT Shelter Goals Time Frame: Mar 20, 2019 Roll Left to Right (QC): 6 Sit to Lying (QC): 6 Lying-Sitting on Side/Bed(QC): 6 Sit to Stand (QC): 6 Chair/Tqi-ik-Jjcyr Xfer(QC): 6 Car Transfer (QC): 6 Walk 10 feet (QC): 6 Walk 10ft-Uneven Surface(QC): 6 Walk 50ft with 2 Turns (QC): 6 Walk 150 ft (QC): 6 Gait Assistive Device: FWW Wheel 50 feet with 2 turns (QC: 9 1 Step (curb) (QC): 4 4 Steps (QC): 9 12 Steps (QC): 9 Picking up an Object (QC): 9 OT Shelter Goals Grinding Machine Operator Automatic Goals Time Frame: Mar 18, 2019 Eating (QC): 6 Oral Hygiene (QC): 6 Shower/Bathe Self (QC): 5 Upper Body Dressing (QC): 6 Lower Body Dressing (QC): 6 On/Off Footwear (QC): 6 Toileting Hygiene (QC): 6 Toilet/Commode Transfer (QC): 6 Additional Goals: 1-Demonstrate ADL Tasks, 2-Verbalize Understanding, 3-ImproveStrength/Herrera 1=Demonstrate adherence to instructed precautions during ADL tasks. 2=Patient will verbalize/demonstrate understanding of assistive devices/modifications for ADL. 3=Patient will improve strength/tolerance for activity to enable patient to per form ADL's. Speech Shelter Goals Shelter Goals The patient will improve his cognitive-communication abilities in order to complete daily living tasks with minimal assist. Met LIEN DICK ST Mar 05, 2019 10:02 POS
--- NOTE | 2019-03-05 11:08 | Therapy Team Discharge Summary ---
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 Upon admission to ARU, he was CGA with transfers and min assist with gait short distances with min assist on steps as well. His balance was severely impaired due to LE decreased coordinated movement. Treatment has consisted of functional strength, balance, gait, transfer, safety, and progression of all functional mobility. He has made good progress and has achieved his max potential at this time. He is mod indep with gait and transfers, able to go up/down up to 12 steps without assist. He is to discharge home at this time. Occupational Therapy Decreased Activ Tolerance PT Golf Range Attendant Goals Mcfp Goals PT Mcfp Goals Time Frame: Mar 20, 2019 Roll Left to Right (QC): 6 (met) Sit to Lying (QC): 6 (met) Lying-Sitting on Side/Bed(QC): 6 (met) Sit to Stand (QC): 6 (met) Chair/Och-fz-Cshnm Xfer(QC): 6 (met) Car Transfer (QC): 6 (scored a 5) Walk 10 feet (QC): 6 (met) Walk 10ft-Uneven Surface(QC): 6 (scored a 4) Walk 50ft with 2 Turns (QC): 6 (met) Walk 150 ft (QC): 6 (met) Gait Assistive Device: FWW Wheel 50 feet with 2 turns (QC: 9 1 Step (curb) (QC): 4 (exceeded; scored a 6) 4 Steps (QC): 9 (scored a 6) 12 Steps (QC): 9 (scored a 6) Picking up an Object (QC): 9 (scored a 6) OT Golf Range Attendant Goals Mcfp Goals Time Frame: Mar 18, 2019 Eating (QC): 6 Oral Hygiene (QC): 6 Shower/Bathe Self (QC): 5 Upper Body Dressing (QC): 6 Lower Body Dressing (QC): 6 On/Off Footwear (QC): 6 Toileting Hygiene (QC): 6 Toilet/Commode Transfer (QC): 6 Additional Goals: 1-Demonstrate ADL Tasks, 2-Verbalize Understanding, 3- ImproveStrength/Herrera 1=Demonstrate adherence to instructed precautions during ADL tasks. 2=Patient will verbalize/demonstrate understanding of assistive devices/modifications for ADL. 3=Patient will improve strength/tolerance for activity to enable patient to perform ADL's. Speech Mcfp Goals Golf Range Attendant Goals The patient will improve his cognitive-communication abilities in order to complete daily living tasks with minimal assist. Met GERMAIN GUZMAN PT Mar 05, 2019 11:07 POS
--- NOTE | 2019-03-05 11:44 | NUR ---
Patient is discharged to home as planned. He has coordinated his transport with a friend, anticipated arrival 1330. Patient is dressed and packed and looking forward to getting home. Unit RN updated. IMM2 delivered/signed yesterday, patient in complete agreement with discharge. HHC: Discussed with patient, he stated he did not want to be homebound and therefore did not want HHC. DME: Patient has all necessary/recommended DME. As before, he will be on continuous O2, he has his [employer] portable here for use during transport. SUMMARY: Patient has a routine to go to local coffee shop daily with friends, and has other short outings he wishes to continue. 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 He said that all who enter there pass through him, and he has awareness he is vulnerable to exposure to contagious illnesses. Updated daughter/POA Ary "Nay Sales who resides in [facility]. She shared that patient has gas heat and also uses wood-burning heat. She reports a malfunction with the gas furnace and repair has not yet been completed. She has cautioned patient about managing the wood as it pertains to fall risk. She described that he procrastinates about getting things taken care of and that family will continue to follow these matters. Ary will e-scan POA to proposal manager writer for medical record. Discharge planning complete.
--- NOTE | 2019-03-05 11:59 | Discharge Summary ---
Diagnosis/Chief Complaint Date of Admission Feb 25, 2019 at 11:15 Date of Discharge Discharge Date: Mar 05, 2019 Discharge Diagnosis Assessment: Chemotherapy weakness Pneumonia Hypoxia Lung cancer HTN Chronic pain Plan: 04/11 IRF Monitor weakness closely Appreciate Dr Anne BASS tomorrow Getting close to baseline (1) Generalized weakness Status: Acute (2) Left upper lobe pneumonia Status: Acute (3) Nausea & vomiting Status: Resolved Resolution Date/Time: 11/18/18 @ 15:27 (4) Urinary incontinence (5) Hypokalemia Status: Acute (6) DVT prophylaxis Status: Acute (7) Essential (primary) hypertension Status: Chronic (8) Anemia (9) Myopathy (10) Lung cancer Status: Chronic (11) Debility Status: Chronic (12) Chronic pain Status: Chronic (13) TBI (traumatic brain injury) Status: Chronic (14) RESPIRATORY FAILURE, UNSP, UNSP W HYPOXIA OR HYPERCAPNIA Status: Acute Discharge Summary Discharge Physical Examination Allergies: Coded Allergies: baclofen (Verified Allergy, Unknown, 11/24/18) metoclopramide (Verified Allergy, Unknown, 11/24/18) Vitals & I&Os Vital Signs Date Time Temp Pulse Resp B/P (MAP) Pulse Ox O2 Delivery O2 Flow Rate FiO2 03/05/19 10:00 95 Nasal Cannula 2.00 03/05/19 05:06 36.8 81 18 135/62 (86) 02/27/19 15:17 36 General Appearance: Alert, Oriented X3, Cooperative Respiratory: Clear to Auscultation Cardiovascular: Regular Rate Neuro: Normal Gait, Normal Speech, Strength at 5/5 X4 Ext Psych/Mental Status: Mental Status NL, Mood NL Hospital Course Was the Problem List Reviewed?: Yes Pt had an uneventful 9 day hospital course to inpatient rehab after he was admitted for pneumonia with history of lung cancer on immunosuppressants. He was maintained on oxygen as he has at home and Dr. Rodríguez was consulted due to higher requirements of oxygen but he assessed everything within normal limits. He did complete IV Zosyn and was converted to oral antibiotics and eventfully regained most of his strength and was at baseline and able to take care of himself and return home and live alone and will have close follow up with PCP. Labs (last 24 hrs) Laboratory Tests 02/26/19 06:20: White Blood Count 4.8, Red Blood Count 3.84L, Hemoglobin 10.6L, Hematocrit 34L, Mean Corpuscular Volume 87, Mean Corpuscular Hemoglobin 28, Mean Corpuscular Hemoglobin Concent 32, Red Cell Distribution Width 14.3, Platelet Count 231, Mean Platelet Volume 10.3, Neutrophils (%) (Auto) 48, Lymphocytes (%) (Auto) 27, Monocytes (%) (Auto) 10, Eosinophils (%) (Auto) 14H, Basophils (%) (Auto) 0, Neutrophils # (Auto) 2.3, Lymphocytes # (Auto) 1.3, Monocytes # (Auto) 0.5, Eosinophils # (Auto) 0.7H, Basophils # (Auto) 0.0, Sodium Level 140, Potassium Level 3.7, Chloride Level 103, Carbon Dioxide Level 27, Anion Gap 10, Blood Urea Nitrogen 6L, Creatinine 0.70, Estimat Glomerular Filtration Rate > 60, BUN/Creatinine Ratio 9, Glucose Level 89, Calcium Level 9.2, Corrected Calcium 9.8, Total Bilirubin 0.4, Aspartate Amino Transf (AST/SGOT) 24, Alanine Aminotransferase (ALT/SGPT) 22, Alkaline Phosphatase 82, Total Protein 6.7, Albumin 3.3 03/03/19 04:40: White Blood Count 4.5, Red Blood Count 3.77L, Hemoglobin 10.3L, Hematocrit 33L, Mean Corpuscular Volume 88, Mean Corpuscular Hemoglobin 27, Mean Corpuscular Hemoglobin Concent 31L, Red Cell Distribution Width 14.6H, Platelet Count 255, Mean Platelet Volume 10.0, Neutrophils (%) (Auto) 43, Lymphocytes (%) (Auto) 33, Monocytes (%) (Auto) 9, Eosinophils (%) (Auto) 15H, Basophils (%) (Auto) 0, Neutrophils # (Auto) 1.9, Lymphocytes # (Auto) 1.5, Monocytes # (Auto) 0.4, Eosinophils # (Auto) 0.7H, Basophils # (Auto) 0.0, Sodium Level 141, Potassium Level 4.0, Chloride Level 106, Carbon Dioxide Level 26, Anion Gap 9, Blood Urea Nitrogen 11, Creatinine 0.80, Estimat Glomerular Filtration Rate > 60, BUN/Creatinine Ratio 14, Glucose Level 90, Calcium Level 9.2, Corrected Calcium 9.5, Total Bilirubin 0.2, Aspartate Amino Transf (AST/SGOT) 29, Alanine Aminotransferase (ALT/SGPT) 21, Alkaline Phosphatase 73, Total Protein 6.7, Albumin 3.6 Pending Labs Laboratory Tests 02/26/19 06:20: White Blood Count 4.8, Red Blood Count 3.84, Hemoglobin 10.6, Hematocrit 34, Mean Corpuscular Volume 87, Mean Corpuscular Hemoglobin 28, Mean Corpuscular Hemoglobin Concent 32, Red Cell Distribution Width 14.3, Platelet Count 231, Mean Platelet Volume 10.3, Neutrophils (%) (Auto) 48, Lymphocytes (%) (Auto) 27, Monocytes (%) (Auto) 10, Eosinophils (%) (Auto) 14, Basophils (%) (Auto) 0, Neutrophils # (Auto) 2.3, Lymphocytes # (Auto) 1.3, Monocytes # (Auto) 0.5, Eosinophils # (Auto) 0.7, Basophils # (Auto) 0.0, Sodium Level 140, Potassium Level 3.7, Chloride Level 103, Carbon Dioxide Level 27, Anion Gap 10, Blood Urea Nitrogen 6, Creatinine 0.70, Estimat Glomerular Filtration Rate > 60, BUN/Creatinine Ratio 9, Glucose Level 89, Calcium Level 9.2, Corrected Calcium 9.8, Total Bilirubin 0.4, Aspartate Amino Transf (AST/SGOT) 24, Alanine Aminotransferase (ALT/SGPT) 22, Alkaline Phosphatase 82, Total Protein 6.7, Albumin 3.3 03/03/19 04:40: White Blood Count 4.5, Red Blood Count 3.77, Hemoglobin 10.3, Hematocrit 33, Mean Corpuscular Volume 88, Mean Corpuscular Hemoglobin 27, Mean Corpuscular Hemoglobin Concent 31, Red Cell Distribution Width 14.6, Platelet Count 255, Mean Platelet Volume 10.0, Neutrophils (%) (Auto) 43, Lymphocytes (%) (Auto) 33, Monocytes (%) (Auto) 9, Eosinophils (%) (Auto) 15, Basophils (%) (Auto) 0, Neutrophils # (Auto) 1.9, Lymphocytes # (Auto) 1.5, Monocytes # (Auto) 0.4, Eosinophils # (Auto) 0.7, Basophils # (Auto) 0.0, Sodium Level 141, Potassium Level 4.0, Chloride Level 106, Carbon Dioxide Level 26, Anion Gap 9, Blood Urea Nitrogen 11, Creatinine 0.80, Estimat Glomerular Filtration Rate > 60, BUN/Creatinine Ratio 14, Glucose Level 90, Calcium Level 9.2, Corrected Calcium 9.5, Total Bilirubin 0.2, Aspartate Amino Transf (AST/SGOT) 29, Alanine Aminotransferase (ALT/SGPT) 21, Alkaline Phosphatase 73, Total Protein 6.7, A lbumin 3.6 Discharge Home Medications: Active Scripts Active Voltaren (Diclofenac Sodium) 100 Gm Gel..gram. 0 Gm TOP QID Reported Gilotrif (Afatinib Dimaleate) 30 Mg Tablet 30 Mg PO DAILY TAKES 1ST THING IN THE MORNING Triamcinolone Acetonide 0.025% (Triamcinolone Acet) 15 Gm Cr 1 Ea TOP UD PRN Anoro Ellipta 62.5-25 Mcg INH (Umeclidinium Brm/Vilanterol Tr) 1 Each Blst.w.dev 1 Puff IH DAILY Refresh Tears (Carboxymethylcellulose Sodium) 15 Ml Drops 1 Drop OD Q2H Systane Nighttime Eye Oint (Mineral Oil/Petrolatum,White) 3.5 Gm Oint...g. OD H S Fentanyl Patch 100 MCG (Fentanyl) 1 Each Patch.td72 100 Mcg TD Q72H LAST TIME PATCH WAS APPLIED WAS 02-23-2019 BEFORE HOSPITALIZATION Nystatin 15 Gm Cream..g. TOP BID PRN Omeprazole 20 Mg Capsule.dr 20 Mg PO DAILY Flomax (Tamsulosin HCl) 0.4 Mg Cap 0.4 Mg PO DAILY Oxycodone HCl 5 Mg Tablet 5 Mg PO Q6H PRN Ondansetron Odt (Ondansetron) 4 Mg Tab.rapdis 4 Mg PO Q8H PRN Multi-Vitamin Daily (Multivitamin) 1 Each Tablet 1 Tab PO DAILY Ascorbic Acid 500 Mg Tablet 500 Mg PO DAILY Loratadine 10 Mg Tablet 10 Mg PO DAILY Paroxetine HCl 20 Mg Tablet 20 Mg PO DAILY Amlodipine Besylate 10 Mg Tablet 10 Mg PO DAILY Gabapentin 300 Mg Capsule 600 Mg PO TID TAKES 2 (300MG) CAPSULES Potassium Chloride 10 Meq Tab.er.prt 20 Meq PO DAILY TAKES 2 (10MEQ) TABLETS Instructions to patient/family Please see electronic discharge instructions given to patient. Diagnosis/Problems Diagnosis/Problems (1) Generalized weakness Status: Acute (2) Left upper lobe pneumonia Status: Acute (3) Nausea & vomiting Status: Resolved Resolution Date/Time: 11/18/18 @ 15:27 (4) Urinary incontinence (5) Hypokalemia Status: Acute (6) DVT prophylaxis Status: Acute (7) Essential (primary) hypertension Status: Chronic (8) Anemia (9) Myopathy (10) Lung cancer Status: Chronic (11) Debility Status: Chronic (12) Chronic pain Status: Chronic (13) TBI (traumatic brain injury) Status: Chronic (14) RESPIRATORY FAILURE, UNSP, UNSP W HYPOXIA OR HYPERCAPNIA Status: Acute Clinical Quality Measures DVT/VTE Risk/Contraindication: Risk Factor Score Per Nursin RFS Level Per Nursing on Admit: 4+=Very High BEBETO OLIVAREZ DO Mar 05, 2019 11:59 POS
--- NOTE | 2019-03-05 14:05 | Therapy Team Discharge Summary ---
Therapy Discharge Summary Discharge Recommendations Date of Discharge Therapy D/C Recommendations: Other, See Comments Occupational Therapy Pt admitted to ARU with chemotherapy neuropathy. On admission pt required min assist with LE dressing, toileting, and transfers. Skilled OT intervention fo cused on ADL training, transfers, strengthening, and safety. Pt made good progress with therapy and by discharge is completing dressing after set up and other ADLs and transfers with modified independence. Pt did not meet goals for UE/LE dressing, but met other OT LTG. Pt discharging home this date. D/c ARU OT at this time. Decreased Activ Tolerance PT Skilled Nursing Goals Transit Planner Goals PT Transit Planner Goals Time Frame: Mar 20, 2019 Roll Left to Right (QC): 6 Sit to Lying (QC): 6 Lying-Sitting on Side/Bed(QC): 6 Sit to Stand (QC): 6 Chair/Fwb-it-Qijph Xfer(QC): 6 Car Transfer (QC): 6 Walk 10 feet (QC): 6 Walk 10ft-Uneven Surface(QC): 6 Walk 50ft with 2 Turns (QC): 6 Walk 150 ft (QC): 6 Gait Assistive Device: FWW Wheel 50 feet with 2 turns (QC: 9 1 Step (curb) (QC): 4 4 Steps (QC): 9 12 Steps (QC): 9 Picking up an Object (QC): 9 OT Skilled Nursing Goals Transit Planner Goals Time Frame: Mar 18, 2019 Eating (QC): 6 Oral Hygiene (QC): 6 Shower/Bathe Self (QC): 5 Upper Body Dressing (QC): 6 Lower Body Dressing (QC): 6 On/Off Footwear (QC): 6 Toileting Hygiene (QC): 6 Toilet/Commode Transfer (QC): 6 Additional Goals: 1-Demonstrate ADL Tasks, 2-Verbalize Understanding, 3- ImproveStrength/Herrera 1=Demonstrate adherence to instructed precautions during ADL tasks. 2=Patient will verbalize/demonstrate understanding of assistive devices/modifications for ADL. 3=Patient will improve strength/tolerance for activity to enable patient to perform ADL's. Speech Skilled Nursing Goals Transit Planner Goals The patient will improve his cognitive-communication abilities in order to complete daily living tasks with minimal assist. Met BARNEY GRECO OT Mar 05, 2019 14:05 POS
== END 2019-03-05 15:10 | disposition home or self-care (01) | DRG 74 ==
PROVIDERS: ADMIT Internal Medicine; ATTEND Internal Medicine
DX: G62.0 Drug-induced polyneuropathy (principal); T45.1X5A Adverse effect of antineoplastic and immunosuppressive drugs, initial encounter; C34.2 Malignant neoplasm of middle lobe, bronchus or lung; R53.1 Weakness; R53.81 Other malaise; J44.9 Chronic obstructive pulmonary disease, unspecified; I10 Essential (primary) hypertension; F32.9 Major depressive disorder, single episode, unspecified; K21.9 Gastro-esophageal reflux disease without esophagitis; R32 Unspecified urinary incontinence; B35.1 Tinea unguium; M20.41 Other hammer toe(s) (acquired), right foot; M20.42 Other hammer toe(s) (acquired), left foot; Z87.01 Personal history of pneumonia (recurrent); Z99.81 Dependence on supplemental oxygen; Z87.891 Personal history of nicotine dependence; Z87.820 Personal history of traumatic brain injury
CPT/HCPCS: 36415; 71046; 80053; 85025; 94640; 94760

== ENCOUNTER → 2019-03-07 | Outpatient (CLI) | payer MEDICARE, OTHER ==
[~2019-03-07] MED LIST changes: +CATHETER FLUSH 10 ML SYR IV PRN; +DICL100G18 TOP; +HOLD METFORMIN - RECEIVED CONTRAST 20 ML VIAL IV SCH; +IOHEXOL 350 MG/ML 100 ML (OMNIPAQUE 350) VIAL IV ONE; +NS 100 ML (IVPB) BAG IV ONE
[2019-03-07 15:08] LABS: HEMATOCRIT 36 % (40-54); HEMOGLOBIN 11.4 G/DL (13.3-17.7); MEAN CORPUSCULAR HEMOGLOBIN 28 PG (25-34); MEAN CORPUSCULAR HGB CONC 32 G/DL (32-36); MEAN CORPUSCULAR VOLUME 88 FL (80-99); WHITE BLOOD COUNT 6.8 10^3/uL (4.3-11.0)
[2019-03-07 15:09] LABS: BASOPHILS % (AUTO) 0 % (0-10); EOSINOPHILS # (AUTO) 0.6 10^3/uL (0.0-0.3); EOSINOPHILS % (AUTO) 8 % (0-10); LYMPHOCYTES # (AUTO) 1.9 X 10^3 (1.0-4.0); LYMPHOCYTES % (AUTO) 27 % (12-44); MEAN PLATELET VOLUME 10.2 FL (7.4-10.4); MONOCYTES # (AUTO) 0.4 X 10^3 (0.0-1.0); MONOCYTES % (AUTO) 5 % (0-12); NEUTROPHILS % (AUTO) 59 % (42-75); PLATELET COUNT 298 10^3/uL (130-400); RED CELL DISTRIBUTION WIDTH 13.7 % (10.0-14.5)
[2019-03-07 15:11] LABS: ALANINE AMINOTRANSFERASE 16 U/L (0-55); ALBUMIN 4.1 GM/DL (3.2-4.5); ALKALINE PHOSPHATASE 91 U/L (40-136); BILIRUBIN,TOTAL 0.2 MG/DL (0.1-1.0); BUN/CREATININE RATIO 16; CALCIUM 9.4 MG/DL (8.5-10.1); CARBON DIOXIDE 27 MMOL/L (21-32); CHLORIDE 101 MMOL/L (98-107); CREATININE SERUM 0.85 MG/DL (0.60-1.30); GFR ESTIMATED > 60; GLUCOSE 100 MG/DL (70-105); POTASSIUM 4.4 MMOL/L (3.6-5.0); SODIUM 140 MMOL/L (135-145); TOTAL PROTEIN 7.7 GM/DL (6.4-8.2)
[2019-03-07 15:16] LABS: BAND NEUTROPHILS 3 %; BASOPHILS % (MANUAL) 0 %; EOSINOPHILS % (MANUAL) 8 %; LYMPHOCYTES % (MANUAL) 33 %; MONOCYTES % (MANUAL) 3 %; NEUTROPHILS % (MANUAL) 53 %
--- NOTE | 2019-03-07 16:51 | Diagnostic Imaging Report ---
EXAMINATION: CT Chest with intravenous contrast. TECHNIQUE: Multiple contiguous axial images were obtained through the chest after the uneventful administration of intravenous contrast. All CT scans use one or more of the following dose optimizing techniques: automated exposure control, MA and/or KvP adjustment based on a patient size and exam type, or iterative reconstruction. HISTORY: C34.2 MALIGNANT NEOPLASM OF MIDDLE LOBE, BRONCHUS. COMPARISON: 11/12/2018. FINDINGS: An area of scarring in the right middle lobe is unchanged. Patchy areas of tree-in-bud and centrilobular nodularity in the left upper lobe likely represents a mild inflammatory or infectious process. Lungs are emphysematous and there is scarring in the apices. No edema is seen. No pleural effusion or pneumothorax. No suspicious nodules. Heart size is normal. No pericardial effusion. Aorta is normal in caliber. There is no axillary or supraclavicular lymphadenopathy. A 12 mm subcarinal lymph node is stable. There are mild coronary artery calcifications. Limited views of the upper abdomen reveal absent gallbladder and renal cysts. There are no suspicious osseus lesions. IMPRESSION: 1. Stable scarring in the right middle lobe. 2. New patchy tree-in-bud and centrilobular nodularity in left lower lobe likely representing a mild inflammatory or infectious process. Dictated by: Dictated on workstation # [id number]
== END ==
LOC: RAD FS 14:28
PROVIDERS: ATTEND Internal Medicine Hematology & Oncology
DX: C34.2 Malignant neoplasm of middle lobe, bronchus or lung (principal); J98.4 Other disorders of lung; R91.8 Other nonspecific abnormal finding of lung field
CPT/HCPCS: 36415; 71260; 80053; 82378; 85007; 85027

== ENCOUNTER 2019-05-26 10:48 | Emergency (ER) | payer MEDICARE, OTHER ==
[~2019-05-26] VITALS: Ht 177.8 cm; Wt 72.7 kg
[~2019-05-26 10:48] MED LIST changes: -CATHETER FLUSH 10 ML SYR IV PRN; -HOLD METFORMIN - RECEIVED CONTRAST 20 ML VIAL IV SCH; -IBUP-2055 PO; +IBUP-2473 PO; -IOHEXOL 350 MG/ML 100 ML (OMNIPAQUE 350) VIAL IV ONE; -NS 100 ML (IVPB) BAG IV ONE; +OMEP-280 PO; -OMEP20CA13 PO; -TAMS0.4C98 PO; +TMSL.4C PO
[2019-05-26] MEDS ORDERED: FAMOTIDINE 20MG/2ML IV (PEPCID) IVP ONE (11:00)
[2019-05-26] MEDS ORDERED: ASPIRIN 81 MG CHEW (CHILDREN'S ASA) PO ONE (11:00)
[2019-05-26] MEDS ORDERED: ONDANSETRON 4 MG/2 ML (SDV) Z0FRAN IVP ONE (11:00)
[2019-05-26] MEDS ORDERED: fentaNYL INJECTION 100 MCG/2 ML AMP IVP ONE (11:00)
--- NOTE | 2019-05-26 11:08 | ED Chest Pain ---
General Stated Complaint: N/V;R FOOT PAIN Source: patient, EMS Exam Limitations: no limitations History of Present Illness Date Seen by Provider: May 26, 2019 Time Seen by Provider: 10:50 Initial Comments Patient arrives to the ER by EMS from home in [place] with chief complaint that he woke up this morning with some nausea but no vomiting, increased chronic neuropathic pain in his feet right worse than left and occasional, intermittent burning chest pain in the center of his chest. His last episode was on arrival. He rates the chest pain as pretty severe and the pain in his feet 10 out of 10 at present. He is wearing a fentanyl patch and received 100 g of fentanyl en route from EMS. No nausea medicines. Patient does have a history of active lung cancer being followed by Dr. segundo for primary care and an oncologist here in [facility] but he does not know the name. He took one dose of oxycodone at home and said it did not help his pain. Allergies and Home Medications Allergies Coded Allergies: baclofen (Verified Allergy, Unknown, 11/24/18) metoclopramide (Verified Allergy, Unknown, 11/24/18) Home Medications Afatinib Dimaleate 30 Mg Tablet, 30 MG PO DAILY, (Reported) TAKES 1ST THING IN THE MORNING Amlodipine Besylate 10 Mg Tablet, 10 MG PO DAILY, (Reported) Ascorbic Acid 500 Mg Tablet, 500 MG PO DAILY, (Reported) Carboxymethylcellulose Sodium 15 Ml Drops, 1 DROP OD Q2H, (Reported) Diclofenac Sodium 100 Gm Gel..gram., 0 GM TOP QID Prescribed by: BEBETO OLIVAREZ on 03/04/19 0910 Fentanyl 1 Each Patch.td72, 100 MCG TD Q72H, (Reported) LAST TIME PATCH WAS APPLIED WAS 02-23-2019 BEFORE HOSPITALIZATION Gabapentin 300 Mg Capsule, 600 MG PO TID, (Reported) TAKES 2 (300MG) CAPSULES Loratadine 10 Mg Tablet, 10 MG PO DAILY, (Reported) Mineral Oil/Petrolatum,White 3.5 Gm Oint...g., OD HS, (Reported) Multivitamin 1 Each Tablet, 1 TAB PO DAILY, (Reported) Nystatin 15 Gm Cream..g., TOP BID PRN for RASH, (Reported) Omeprazole 20 Mg Capsule.dr, 20 MG PO DAILY, (Reported) Ondansetron 4 Mg Tab.rapdis, 4 MG PO Q8H PRN for NAUSEA/VOMITING-1ST LINE, (Reported) Oxycodone HCl 5 Mg Tablet, 5 MG PO Q6H PRN for PAIN-SEVERE, (Reported) Paroxetine HCl 20 Mg Tablet, 20 MG PO DAILY, (Reported) Potassium Chloride 10 Meq Tab.er.prt, 20 MEQ PO DAILY, (Reported) TAKES 2 (10MEQ) TABLETS Tamsulosin HCl 0.4 Mg Cap, 0.4 MG PO DAILY, (Reported) Triamcinolone Acet 15 Gm Cr, 1 EA TOP UD PRN for ITCHING, (Reported) Umeclidinium Brm/Vilanterol Tr 1 Each Blst.w.dev, 1 PUFF IH DAILY, (Reported) Patient Home Medication List Home Medication List Reviewed: Yes Review of Systems Review of Systems Constitutional: No chills, No diaphoresis EENTM: No Blurred Vision, No Double Vision Respiratory: Cough; Denies Shortness of Air Cardiovascular: See HPI, Chest Pain; Denies Edema, Denies Irregular Heart Rate, Denies Lightheadedness, Denies Palpitations Gastrointestinal: Denies Abdominal Pain, Denies Constipated, Denies Diarrhea, Denies Nausea Genitourinary: Denies Burning, Denies Discharge Musculoskeletal: No back pain, No joint pain Skin: No pruritus, No rash Psychiatric/Neurological: See HPI; Denies Headache, Denies Numbness; Paresthesia All Other Systems Reviewed Negative Unless Noted: Yes Past Ovmpceb-Bgtwum-Gvdzex Hx Patient Social History Alcohol Beverage of Choice: Beer, Whiskey Type Used: Cigarettes Former Smoker, Quit: Apr 23, 1969 2nd Hand Smoke Exposure: No Recent Hopitalizations: No Immunizations Up To Date Tetanus Booster (TDap): Unknown PED Vaccines UTD: Yes Date of Pneumonia Vaccine: Feb 04, 2016 Date of Influenza Vaccine: Jan 09, 2018 Seasonal Allergies Seasonal Allergies: Yes Past Medical History Surgeries: Yes (Past hx of Suprapubic catheter, L TKR, Neuro stimulator placed and removed) Eye Surgery, Gallbladder, Joint Replacement, Orthopedic Respiratory: Yes (has home 02, has only used once in 2 years) Pneumonia, COPD Currently Using CPAP: No Currently Using BIPAP: No Cardiac: Yes Hypertension Neurological: Yes Concussion, Neuropathy, Traumatic Brain Injury Genitourinary: Yes (urinary incontinence, past hx of Suprapubic catheter, pros jessica problems) Prostate Problems, UTI-Chronic Gastrointestinal: Yes (on Iron replacement, Hx of abnormal LFT's) Abdominal Hernia, Gastrointestinal Bleed Musculoskeletal: Yes (chronic pain lower ext from trauma, run over by a tractor) Arthritis, Back Injury, Chronic Back Pain Endocrine: No HEENT: Yes (dry eyes, doesn't make tears) Loss of Vision: Right Hearing Impairment: Hard of Hearing, Hearing Aide Right, 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 Did You Recieve Any Treatments: Yes What Type of Treatment Did You: Chemotherapy Psychosocial: No Integumentary: Yes (thin/frail skin, scattered ecchymosis) Recent Skin Changes Blood Disorders: No Adverse Reaction/Blood Tranf: No Family Medical History Arthritis Colon cancer Coronary thrombosis Hypertension Myocardial infarction Respiratory disorder Heart Disease, Cancer, Hypertension Physical Exam Vital Signs Vital Signs - First Documented 05/26/19 10:50 Temp 39.0 Pulse 71 Resp 18 B/P (MAP) 152/65 (94) Pulse Ox 94 O2 Delivery Nasal Cannula O2 Flow Rate 2.00 Capillary Refill : Height, Weight, BMI Height: 5'11.00" Weight: 165lbs. 8.0oz. 74.584596cy; 22.11 BMI Method:Stated General Appearance: Anxious, Mild Distress HEENT: PERRL/EOMI, Pharynx Normal, Moist Mucous Membranes Neck: Full Range of Motion, Normal Inspection Respiratory: Lungs Clear, Normal Breath Sounds, No Accessory Muscle Use, No Respiratory Distress, Decreased Breath Sounds Cardiovascular: Regular Rate, Rhythm, No Edema, Normal Peripheral Pulses Gastrointestinal: Normal Bowel Sounds, Non Tender, Soft Extremity: Normal Capillary Refill, Normal Inspection Neurologic/Psychiatric: Alert, Oriented x3 Skin: Normal Color, Warm/Dry Focused Exam Lactate Level 05/26/19 11:04: Lactic Acid Level 1.29 Lactic Acid Level Laboratory Tests Test 05/26/19 11:04 Lactic Acid Level 1.29 MMOL/L (0.50-2.00) Progress/Results/Core Measures Results/Orders Lab Results Laboratory Tests Test 05/26/19 11:04 05/26/19 16:26 Range/Units White Blood Count 13.4 H 4.3-11.0 10^3/uL Red Blood Count 4.18 L 4.35-5.85 10^6/uL Hemoglobin 11.6 L 13.3-17.7 G/DL Hematocrit 37 L 40-54 % Mean Corpuscular Volume 88 80-99 FL Mean Corpuscular Hemoglobin 28 25-34 PG Mean Corpuscular Hemoglobin Concent 32 32-36 G/DL Red Cell Distribution Width 14.3 10.0-14.5 % Platelet Count 237 130-400 10^3/uL Mean Platelet Volume 10.8 H 7.4-10.4 FL Neutrophils (%) (Auto) 88 H 42-75 % Lymphocytes (%) (Auto) 6 L 12-44 % Monocytes (%) (Auto) 5 0-12 % Eosinophils (%) (Auto) 1 0-10 % Basophils (%) (Auto) 0 0-10 % Neutrophils # (Auto) 11.8 H 1.8-7.8 X 10^3 Lymphocytes # (Auto) 0.8 L 1.0-4.0 X 10^3 Monocytes # (Auto) 0.7 0.0-1.0 X 10^3 Eosinophils # (Auto) 0.1 0.0-0.3 10^3/uL Basophils # (Auto) 0.0 0.0-0.1 10^3/uL Neutrophils % (Manual) 81 % Lymphocytes % (Manual) 2 % Monocytes % (Manual) 0 % Eosinophils % (Manual) 1 % Basophils % (Manual) 0 % Band Neutrophils 11 % Reactive Lymphocytes 5 % Blood Morphology Comment NORMAL Prothrombin Time 12.8 12.2-14.7 SEC INR Comment 0.9 0.8-1.4 Activated Partial Thromboplast Time 30 24-35 SEC D-Dimer 1.59 H 0.00-0.49 UG/ML Sodium Level 143 135-145 MMOL/L Potassium Level 4.2 3.6-5.0 MMOL/L Chloride Level 107 98-107 MMOL/L Carbon Dioxide Level 28 21-32 MMOL/L Anion Gap 8 5-14 MMOL/L Blood Urea Nitrogen 13 7-18 MG/DL Creatinine 0.75 0.60-1.30 MG/DL Estimat Glomerular Filtration Rate > 60 BUN/Creatinine Ratio 17 Glucose Level 107 H 70-105 MG/DL Lactic Acid Level 1.29 0.50-2.00 MMOL/L Calcium Level 8.7 8.5-10.1 MG/DL Corrected Calcium 9.0 8.5-10.1 MG/DL Magnesium Level 1.6 1.6-2.4 MG/DL Total Bilirubin 0.5 0.1-1.0 MG/DL Aspartate Amino Transf (AST/SGOT) 29 5-34 U/L Alanine Aminotransferase (ALT/SGPT) 23 0-55 U/L Alkaline Phosphatase 119 40-136 U/L Total Creatine Kinase 97 30-200 U/L Myoglobin 90.2 10.0-92.0 NG/ML Troponin I < 0.028 < 0.028 <0.028 NG/ML B-Type Natriuretic Peptide 456.0 H <100.0 PG/ML Total Protein 6.6 6.4-8.2 GM/DL Albumin 3.6 3.2-4.5 GM/DL Micro Results Microbiology 05/26/19 Influenza Types A,B Antigen (LEA) - Final, Complete My Orders Orders - CARLA MCCARTNEY Cbc With Automated Diff (05/26/19 10:59) Magnesium (05/26/19 10:59) Chest 1 View, Ap/Pa Only (05/26/19 10:59) Ekg Tracing (05/26/19 10:59) Comprehensive Metabolic Panel (05/26/19 10:59) Myoglobin Serum (05/26/19 10:59) Protime With Inr (05/26/19 10:59) Partial Thromboplastin Time (05/26/19 10:59) O2 (05/26/19 10:59) Monitor-Rhythm Ecg Trace Only (05/26/19 10:59) Lipid Panel (05/27/19 06:00) Ed Iv/Invasive Line Start (05/26/19 10:59) Creatine Kinase (05/26/19 10:59) BNP (05/26/19 10:59) Fibrin Degradation Products (05/26/19 10:59) Aspirin Chewable Tablet (Baby Aspirin Ch (05/26/19 11:00) Fentanyl Injection (Sublimaze Injection (05/26/19 11:00) Ondansetron Injection (Zofran Injectio (05/26/19 11:00) Influenza A And B Antigens (05/26/19 10:59) Famotidine Injection (Pepcid Injection) (05/26/19 11:00) Blood Culture (05/26/19 11:11) Sputum Culture (05/26/19 11:11) Urinalysis (05/26/19 11:11) Urine Culture (05/26/19 11:11) Ed Iv/Invasive Line Start (05/26/19 11:11) Ed Iv/Invasive Line Start (05/26/19 11:11) Vital Signs Adult Sepsis Patie Q15M (05/26/19 11:11) Remove Rings In Anticipation O (05/26/19 11:11) Lactic Acid Analyzer (05/26/19 11:11) Ns Iv 1000 Ml (Sodium Chloride 0.9%) (05/26/19 11:11) Cefepime Injection (Maxipime Injection) (05/26/19 11:15) Ed Iv/Invasive Line Start (05/26/19 11:11) Ns Iv 500 Ml (Sodium Chloride 0.9%) (05/26/19 11:11) Troponin I (05/26/19 11:04) Manual Differential (05/26/19 11:04) Ns Iv 1000 Ml (Sodium Chloride 0.9%) (05/26/19 11:09) Acetaminophen Tablet (Tylenol Tablet) (05/26/19 11:15) Ketorolac Injection (Toradol Injection) (05/26/19 13:30) Vancomycin Injection (Vancomycin Injecti (05/26/19 13:38) Hydromorphone Injection (Dilaudid Inject (05/26/19 14:45) Troponin I (05/26/19 16:25) Albuterol/Ipra Inhalation Soln (Duoneb I (05/26/19 16:45) Svn Small Volume Nebulizer (05/26/19 16:38) Medications Given in ED Current Medications Medications Dose Ordered Sig/Nunu Route Start Time Stop Time Status Last Admin Dose Admin Acetaminophen 1,000 mg ONCE ONCE PO 05/26/19 11:15 05/26/19 11:16 DC 05/26/19 11:36 1,000 MG Albuterol/ Ipratropium 3 ml ONCE ONCE INH 05/26/19 16:45 05/26/19 16:46 DC 05/26/19 16:51 3 ML Aspirin 324 mg ONCE ONCE PO 05/26/19 11:00 05/26/19 11:04 DC 05/26/19 11:18 324 MG Cefepime HCl 1000 mg/Sterile Water 10 ml @ 200 mls/hr ONCE ONCE IV 05/26/19 11:15 05/26/19 11:17 DC 05/26/19 12:05 200 MLS/HR Famotidine 20 mg ONCE ONCE IVP 05/26/19 11:00 05/26/19 11:04 DC 05/26/19 11:19 20 MG Fentanyl Citrate 50 mcg ONCE ONCE IVP 05/26/19 11:00 05/26/19 11:04 DC 05/26/19 11:19 50 MCG Ketorolac Tromethamine 30 mg ONCE ONCE IVP 05/26/19 13:30 05/26/19 13:31 DC 05/26/19 13:35 30 MG Ondansetron HCl 4 mg ONCE ONCE IVP 05/26/19 11:00 05/26/19 11:04 DC 05/26/19 11:19 4 MG Sodium Chloride 500 ml @ 0 mls/hr Q0M ONCE IV 05/26/19 11:11 05/26/19 11:13 DC 05/26/19 12:04 0 MLS/HR Vital Signs/I&O 05/26/19 05/26/19 05/26/19 10:50 10:50 16:51 Temp 39.0 Pulse 71 Resp 18 B/P (MAP) 152/65 (94) Pulse Ox 94 94 92 O2 Delivery Nasal Cannula Nasal Cannula Nasal Cannula O2 Flow Rate 2.00 2.00 4.00 Progress Progress Note #1: Time: 11:07 Progress Note He seems to be having an 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 He is not having any subjective or objective shortness of breath at this time. We'll get a flu swab. Pneumonia is a possibility. Since she's having some intermittent burning chest pain we'll give him some Pepcid and work him up for coronary as well. We'll get a d-dimer to see if we can rule out a pulmonary embolism. 50 macro grams of fentanyl for now. He is mentating well Progress Note #2: Time: 16:31 Progress Note After the fentanyl and Toradol patient says his leg pain is much improved and he is no longer concerned about it. He still feels congested in his chest. The chest x-ray does not demonstrate any pneumothorax or pneumonia. His initial troponin and EKG are okay. Plan to get a delta troponin now. If this is okay and he improves with DuoNeb we may send him home on albuterol for bronchitis. I nfluenza is negative. Progress Note #3: Time: 17:46 Progress Note The patient is feeling better and would like to go home. Delta troponin is negative. He has not had symptoms since giving him the Pepcid. Suspect it was more related to either his chest congestion bronchitis or acid reflux. We'll put him on some Tessalon Perles. The patient has a nebulizer and albuterol and says he has plenty of at home but does not use it. Initial ECG Impression Date: May 26, 2019 Initial ECG Impression Time: 11:53 Initial ECG Rate: 67 Initial ECG Rhythm: Normal Sinus Initial ECG Intervals: Normal Initial ECG Impression: Normal Initial ECG Comparisson: Unchanged Comment Negative risk elevation or depression. Normal sinus rhythm. Diagnostic Imaging Diagonstic Imaging: Xray Plain Films/CT/US/NM/MRI: chest Comments NAME: [facility] REC#: [id number] PT STATUS: REG ER : 1940 PHYSICIAN: CARLA MCCARTNEY MD ADMIT DATE: 05/26/19/ER Signed Date of Exam:05/26/19 CHEST 1 VIEW, AP/PA ONLY INDICATION: Nausea and vomiting. TIME OF EXAMINATION: 11:38 AM. COMPARISON: 02/27/2019. FINDINGS: The heart size is stable. Stimulator leads overlie the mid thoracic spine. The chronic interstitial changes appear stable. No new infiltrate is seen. No effusion or pneumothorax is identified. IMPRESSION: Stable chest. No acute feature is detected. Dictated by: Dictated on workstation # [id number] Dict: 05/26/19 1217 Trans: 05/26/19 1559 [id number] Interpreted by: DAVONTE GARRETT MD Electronically signed by: DAVONTE GARRETT MD 05/26/19 1559 Reviewed: Reviewed by Me Departure Impression Primary Impression: Acute bronchitis Qualified Codes: J20.9 - Acute bronchitis, unspecified Additional Impressions: History of lung cancer in adulthood Peripheral neuropathy Qualified Codes: G62.9 - Polyneuropathy, unspecified Disposition: 01 HOME, SELF-CARE Condition: Improved Departure-Patient Inst. Decision time for Depature: 17:49 Referrals: SADIA SEGUNDO MD (PCP/Family) Primary Care Physician Patient Instructions: Peripheral Neuropathy, Acute Bronchitis, Adult (DC) Add. Discharge Instructions: Drink plenty of fluids. Use a humidifier and vapor rubs such as Vicks or Mentholatum. Use your albuterol inhaler/nebulizer 4 times a day on a scheduled basis and more often as necessary for coughing wheezing or shortness of breath. Tessalon Perles 1 capsule every 6 hours as needed for cough. Follow-up with your primary care doctor this week. Scripts Benzonatate (Tessalon Perle) 100 Mg Capsule 100 MG PO Q6H PRN for COUGH, #30 CAP 0 Refills Prov: CARLA MCCARTNEY 05/26/19 CARLA MCCARTNEY May 26, 2019 11:08
[2019-05-26] MEDS ORDERED: NS IV 1000 ML 1,000 ML ONE (11:09)
[2019-05-26] MEDS ORDERED: NS IV 500 ML 500 ML IV ONE (11:11)
[2019-05-26] MEDS ORDERED: NS IV 1000 ML 1,000 ML IV SCH (11:11)
[2019-05-26 11:13] LABS: BASOPHILS % (AUTO) 0 % (0-10); EOSINOPHILS # (AUTO) 0.1 10^3/uL (0.0-0.3); EOSINOPHILS % (AUTO) 1 % (0-10); HEMATOCRIT 37 % (40-54); HEMOGLOBIN 11.6 G/DL (13.3-17.7); LYMPHOCYTES # (AUTO) 0.8 X 10^3 (1.0-4.0); LYMPHOCYTES % (AUTO) 6 % (12-44); MEAN CORPUSCULAR HEMOGLOBIN 28 PG (25-34); MEAN CORPUSCULAR HGB CONC 32 G/DL (32-36); MEAN CORPUSCULAR VOLUME 88 FL (80-99); MEAN PLATELET VOLUME 10.8 FL (7.4-10.4); MONOCYTES # (AUTO) 0.7 X 10^3 (0.0-1.0); MONOCYTES % (AUTO) 5 % (0-12); NEUTROPHILS # (AUTO) 11.8 X 10^3 (1.8-7.8); NEUTROPHILS % (AUTO) 88 % (42-75); PLATELET COUNT 237 10^3/uL (130-400); RED CELL DISTRIBUTION WIDTH 14.3 % (10.0-14.5); WHITE BLOOD COUNT 13.4 10^3/uL (4.3-11.0)
[2019-05-26] MEDS ORDERED: VANCOMYCIN INJECTION 1,000 MG in NS (IVPB) 250 ML IV ONE (11:15)
[2019-05-26] MEDS ORDERED: ACETAMINOPHEN 500 MG TAB (TYLENOL) PO ONE (11:15)
[2019-05-26] MEDS ORDERED: CEFEPIME INJECTION 1,000 MG in WATER (STERILE) FOR INJECTION 10 ML IV ONE (11:15)
[2019-05-26 11:23] LABS: INR 0.9 (0.8-1.4); PROTHROMBIN TIME PATIENT 12.8 SEC (12.2-14.7)
[2019-05-26 11:32] LABS: ALANINE AMINOTRANSFERASE 23 U/L (0-55); ALBUMIN 3.6 GM/DL (3.2-4.5); ALKALINE PHOSPHATASE 119 U/L (40-136); BILIRUBIN,TOTAL 0.5 MG/DL (0.1-1.0); BUN/CREATININE RATIO 17; CALCIUM 8.7 MG/DL (8.5-10.1); CARBON DIOXIDE 28 MMOL/L (21-32); CHLORIDE 107 MMOL/L (98-107); CREATINE KINASE 97 U/L (30-200); CREATININE SERUM 0.75 MG/DL (0.60-1.30); GFR ESTIMATED > 60; GLUCOSE 107 MG/DL (70-105); MAGNESIUM 1.6 MG/DL (1.6-2.4); POTASSIUM 4.2 MMOL/L (3.6-5.0); SODIUM 143 MMOL/L (135-145); TOTAL PROTEIN 6.6 GM/DL (6.4-8.2)
[2019-05-26 11:33] LABS: BAND NEUTROPHILS 11 %; BASOPHILS % (MANUAL) 0 %; EOSINOPHILS % (MANUAL) 1 %; LYMPHOCYTES % (MANUAL) 2 %; MONOCYTES % (MANUAL) 0 %; NEUTROPHILS % (MANUAL) 81 %; RBC MORPH NORMAL; REACTIVE LYMPHOCYTES 5 %
--- NOTE | 2019-05-26 12:20 | Diagnostic Imaging Report ---
INDICATION: Nausea and vomiting. TIME OF EXAMINATION: 11:38 AM. COMPARISON: 02/27/2019. FINDINGS: The heart size is stable. Stimulator leads overlie the mid thoracic spine. The chronic interstitial changes appear stable. No new infiltrate is seen. No effusion or pneumothorax is identified. IMPRESSION: Stable chest. No acute feature is detected. Dictated by: Dictated on workstation # [id number]
[2019-05-26] MEDS ORDERED: KETOROLAC 30 MG/ML VIAL IVP ONE (13:30)
[2019-05-26] MEDS ORDERED: VANCOMYCIN 1500 MG/NS 500 ML IVPB IV NR ×2 (13:38)
[2019-05-26] MEDS ORDERED: HYDROmorphone 2 MG/ML VIAL (DILAUDID) IV ONE (14:45)
[2019-05-26] MEDS ORDERED: RT-ALBUTEROL/IPRATROPIUM 3 ML (DUONEB) VIAL INH ONE (16:45)
[2019-05-26] MEDS ORDERED: BENZ-13 PO (17:54)
[2019-05-26 19:30] VITALS: BP 139/65
== END 2019-05-26 19:30 | disposition home or self-care (01) ==
LOC: ER 10:48 → EDUNIT# 10:51 → ER 19:30
DX: J20.9 Acute bronchitis, unspecified (principal); G62.9 Polyneuropathy, unspecified; I10 Essential (primary) hypertension; Z85.118 Personal history of other malignant neoplasm of bronchus and lung; Z87.820 Personal history of traumatic brain injury; Z88.8 Allergy status to other drugs, medicaments and biological substances; Z87.891 Personal history of nicotine dependence; Z96.652 Presence of left artificial knee joint; Z80.0 Family history of malignant neoplasm of digestive organs; Z82.49 Family history of ischemic heart disease and other diseases of the circulatory system; Z87.09 Personal history of other diseases of the respiratory system
CPT/HCPCS: 36415; 71045; 80053; 82550; 83605; 83735; 83874; 83880; 84484; 85007; 85027; 85379; 85610; 85730; 87040; 87804; 93005; 93041; 94640

== ENCOUNTER → 2019-05-27 | Outpatient (CLI) | payer MEDICARE, OTHER ==
[~2019-05-27] MED LIST changes: +BENZ-13 PO; +CATHETER FLUSH 10 ML SYR IV PRN; +HOLD METFORMIN - RECEIVED CONTRAST 20 ML VIAL IV SCH; +IOHEXOL 350 MG/ML 100 ML (OMNIPAQUE 350) VIAL IV ONE; +NS 100 ML (IVPB) BAG IV ONE
[2019-05-27 10:45] LABS: ALANINE AMINOTRANSFERASE 23 U/L (0-55); ALBUMIN 3.7 GM/DL (3.2-4.5); ALKALINE PHOSPHATASE 116 U/L (40-136); BILIRUBIN,TOTAL 0.7 MG/DL (0.1-1.0); BUN/CREATININE RATIO 14; CALCIUM 9.3 MG/DL (8.5-10.1); CARBON DIOXIDE 28 MMOL/L (21-32); CHLORIDE 100 MMOL/L (98-107); GFR ESTIMATED > 60; GLUCOSE 114 MG/DL (70-105); POTASSIUM 4.2 MMOL/L (3.6-5.0); SODIUM 137 MMOL/L (135-145); TOTAL PROTEIN 6.8 GM/DL (6.4-8.2)
[2019-05-27 10:46] LABS: BASOPHILS % (AUTO) 0 % (0-10); EOSINOPHILS % (AUTO) 3 % (0-10); HEMATOCRIT 36 % (40-54); HEMOGLOBIN 11.6 G/DL (13.3-17.7); LYMPHOCYTES % (AUTO) 17 % (12-44); MEAN CORPUSCULAR HEMOGLOBIN 29 PG (25-34); MEAN CORPUSCULAR HGB CONC 32 G/DL (32-36); MEAN CORPUSCULAR VOLUME 89 FL (80-99); MEAN PLATELET VOLUME 10.7 FL (7.4-10.4); MONOCYTES % (AUTO) 6 % (0-12); NEUTROPHILS % (AUTO) 74 % (42-75); PLATELET COUNT 218 10^3/uL (130-400); RED CELL DISTRIBUTION WIDTH 13.9 % (10.0-14.5); WHITE BLOOD COUNT 8.2 10^3/uL (4.3-11.0)
[2019-05-27 10:47] LABS: EOSINOPHILS # (AUTO) 0.2 10^3/uL (0.0-0.3); LYMPHOCYTES # (AUTO) 1.4 X 10^3 (1.0-4.0); MONOCYTES # (AUTO) 0.5 X 10^3 (0.0-1.0)
--- NOTE | 2019-05-27 12:21 | Diagnostic Imaging Report ---
EXAMINATION: CT Chest with intravenous contrast. TECHNIQUE: Multiple contiguous axial images were obtained through the chest after the uneventful administration of intravenous contrast. All CT scans use one or more of the following dose optimizing techniques: automated exposure control, MA and/or KvP adjustment based on a patient size and exam type, or iterative reconstruction. HISTORY: Lung cancer. COMPARISON: 03/07/2019. FINDINGS: Scarring is again seen in the right middle lobe. There is a bronchial centered nodule in the right lower lobe which measures 2.3 x 1.5 cm, previously 1.2 x 1.3 cm. This is centered in the posterior basilar segmental bronchus. There are small bilateral pleural effusions. Patchy groundglass and tree-in-bud nodules are still present in the left upper and left lower lobes. There are some peripheral areas of reticulation and scarring. Heart size is normal. No pericardial effusion. Aorta is normal in caliber. There is no axillary or supraclavicular lymphadenopathy. A stable 13 mm subcarinal lymph node is seen. There is a small hiatal hernia. Limited views of the upper abdomen show changes of cholecystectomy. Bilateral renal cysts are seen. Spinal stimulator is present. Patchy lytic-appearing areas in the spine are generally associated with the endplates and likely represent small Schmorl's nodes, stable across multiple exams. IMPRESSION: 1. Increase in size of a nodule centered in the posterior basilar segmental bronchus of the right lower lobe, concerning for metastatic disease. 2. Stable groundglass and tree-in-bud nodules otherwise likely representing an inflammatory process versus scarring from prior infection. Dictated by: Dictated on workstation # [id number]
== END ==
LOC: LAB FS 09:44
PROVIDERS: ATTEND Internal Medicine Hematology & Oncology
DX: C34.2 Malignant neoplasm of middle lobe, bronchus or lung (principal)
CPT/HCPCS: 36415; 71260; 80053; 82378; 85025

== ENCOUNTER → 2019-08-04 | Outpatient (CLI) | payer MEDICARE, OTHER ==
[~2019-08-04] MED LIST changes: -OMEP-280 PO; +OMEP20CA18 PO; -OXYC-529 PO; +OXYC5TAB96 PO; -SENN-141 PO; +SENN-234 PO
[2019-08-04 14:42] LABS: HEMATOCRIT 36 % (40-54); HEMOGLOBIN 11.6 G/DL (13.3-17.7); MEAN CORPUSCULAR HEMOGLOBIN 28 PG (25-34); MEAN CORPUSCULAR HGB CONC 33 G/DL (32-36); MEAN CORPUSCULAR VOLUME 88 FL (80-99); PLATELET COUNT 215 10^3/uL (130-400); RED CELL DISTRIBUTION WIDTH 14.1 % (10.0-14.5); WHITE BLOOD COUNT 11.1 10^3/uL (4.3-11.0)
[2019-08-04 14:43] LABS: BASOPHILS % (AUTO) 0 % (0-10); EOSINOPHILS # (AUTO) 0.1 10^3/uL (0.0-0.3); EOSINOPHILS % (AUTO) 1 % (0-10); LYMPHOCYTES % (AUTO) 9 % (12-44); MEAN PLATELET VOLUME 10.6 FL (7.4-10.4); MONOCYTES # (AUTO) 0.5 X 10^3 (0.0-1.0); MONOCYTES % (AUTO) 4 % (0-12); NEUTROPHILS # (AUTO) 9.3 X 10^3 (1.8-7.8); NEUTROPHILS % (AUTO) 84 % (42-75)
[2019-08-04 14:56] LABS: SODIUM 135 MMOL/L (135-145)
[2019-08-04 14:57] LABS: ALANINE AMINOTRANSFERASE 57 U/L (0-55); ALBUMIN 3.8 GM/DL (3.2-4.5); ALKALINE PHOSPHATASE 110 U/L (40-136); BILIRUBIN,TOTAL 0.7 MG/DL (0.1-1.0); BUN/CREATININE RATIO 21; CALCIUM 9.3 MG/DL (8.5-10.1); CARBON DIOXIDE 25 MMOL/L (21-32); CHLORIDE 98 MMOL/L (98-107); CREATININE SERUM 0.87 MG/DL (0.60-1.30); GFR ESTIMATED > 60; GLUCOSE 132 MG/DL (70-105); TOTAL PROTEIN 7.2 GM/DL (6.4-8.2)
[2019-08-04 15:20] LABS: BAND NEUTROPHILS 7 %; BASOPHILS % (MANUAL) 0 %; EOSINOPHILS % (MANUAL) 2 %; LYMPHOCYTES % (MANUAL) 13 %; MONOCYTES % (MANUAL) 1 %; NEUTROPHILS % (MANUAL) 77 %; RBC MORPH NORMAL
--- NOTE | 2019-08-04 17:24 | Diagnostic Imaging Report ---
PROCEDURE: CT chest with contrast only. TECHNIQUE: Multiple contiguous axial images were obtained through the chest after administration of intravenous contrast. Auto Exposure Controls were utilized during the CT exam to meet ALARA standards for radiation dose reduction. INDICATION: Lung cancer, follow-up COMPARISON: CT chest 05/27/2019 FINDINGS: Heart size borderline enlarged with scattered coronary artery calcification. Scattered atherosclerotic plaque about the thoracic aorta. Small to moderate hiatal hernia. A few scattered mediastinal lymph nodes are present. The largest lymph node remains in the subcarinal region, short axis dimension 12 mm, stable. There has been development of a new low paraesophageal lymph node at 11 mm maximum short axis dimension. Predominantly solid, spiculated mass centrally right lower lobe, approximately 2.3 x 1.5 cm (previously 2.3 x 1.5 cm). Scattered point parenchymal densities are again demonstrated. There has been rather prominent progression and/or development of new scattered patchy areas of infiltrate including somewhat tree-in-bud type of appearance particularly of the left upper and lower lobes. Some of these do have a slightly more focal area of nodularity particularly in the medial left lower lobe. No significant pleural effusion. The visualized portion of the upper abdomen demonstrate bilateral renal cysts. Cholecystectomy changes. Thoracic spine stimulator and partial visualization of the lumbar spinal fixation hardware. Degenerative changes of the Schmorl's nodes of the endplates. Prior old healed right rib fractures. IMPRESSION: 1. Dominant right lower lobe pulmonary mass generally stable. 2. Scattered mediastinal lymph nodes, the majority of which are generally stable. There is however a new borderline concerning low paraesophageal lymph node. 3. Increasing pulmonary parenchymal opacities most pronounced in the left lung field. Favor probable inflammatory/infectious etiology but overall is significantly progressed. Dictated by: Dictated on workstation # [id number]
== END ==
LOC: LAB FS 14:07
PROVIDERS: ATTEND Internal Medicine Hematology & Oncology
DX: C34.2 Malignant neoplasm of middle lobe, bronchus or lung (principal)
CPT/HCPCS: 36415; 71260; 80053; 82378; 85007; 85027

== ENCOUNTER 2019-09-24 19:35 | Emergency (ER) | payer MEDICARE, OTHER ==
[~2019-09-24] VITALS: Ht 182.8 cm; Wt 61.3 kg
[~2019-09-24 19:35] MED LIST changes: -CATHETER FLUSH 10 ML SYR IV PRN; -HOLD METFORMIN - RECEIVED CONTRAST 20 ML VIAL IV SCH; -IOHEXOL 350 MG/ML 100 ML (OMNIPAQUE 350) VIAL IV ONE; -NS 100 ML (IVPB) BAG IV ONE
[2019-09-24] MEDS ORDERED: NS IV 1000 ML 1,000 ML IV STA (19:48)
--- NOTE | 2019-09-24 19:52 | ED General ---
General Stated Complaint: ALL OVER SORENESS Source of Information: Patient Exam Limitations: No Limitations History of Present Illness Date Seen by Provider: Sep 24, 2019 Time Seen by Provider: 19:51 Initial Comments This patient is a 78-year-old male that presents to the emergency department via EMS with complaints of generalized body aches. Patient has a long history of chronic pain and has a caregiver in the local area. Patient's family lives in [place]. Patient wears a fentanyl patch for chronic pain apparently this been no patches about 1 week ago. Patient is complaining of body aches today. Patient states that he had a little bit of nausea 2 days ago but has not had any since denies diarrhea. Patient has all extremities movement does not appear to be in acute discomfort. Patient only describes muscle aches. We'll do medical screening exam and evaluate treat further as needed. Timing/Duration: 1-2 Days Allergies and Home Medications Allergies Coded Allergies: baclofen (Verified Allergy, Unknown, 11/24/18) metoclopramide (Verified Allergy, Unknown, 11/24/18) Home Medications Afatinib Dimaleate 30 Mg Tablet, 30 MG PO DAILY, (Reported) TAKES 1ST THING IN THE MORNING Amlodipine Besylate 10 Mg Tablet, 10 MG PO DAILY, (Reported) Ascorbic Acid 500 Mg Tablet, 500 MG PO DAILY, (Reported) Benzonatate 100 Mg Capsule, 100 MG PO Q6H PRN for COUGH Prescribed by: CARLA MCCARTNEY on 05/26/19 1754 Carboxymethylcellulose Sodium 15 Ml Drops, 1 DROP OD Q2H, (Reported) Diclofenac Sodium 100 Gm Gel..gram., 0 GM TOP QID Prescribed by: BEBETO OLIVAREZ on 03/04/19 0910 Fentanyl 1 Each Patch.td72, 100 MCG TD Q72H, (Reported) LAST TIME PATCH WAS APPLIED WAS 02-23-2019 BEFORE HOSPITALIZATION Gabapentin 300 Mg Capsule, 600 MG PO TID, (Reported) TAKES 2 (300MG) CAPSULES Loratadine 10 Mg Tablet, 10 MG PO DAILY, (Reported) Mineral Oil/Petrolatum,White 3.5 Gm Oint...g., OD HS, (Reported) Multivitamin 1 Each Tablet, 1 TAB PO DAILY, (Reported) Nystatin 15 Gm Cream..g., TOP BID PRN for RASH, (Reported) Omeprazole 20 Mg Capsule.dr, 20 MG PO DAILY, (Reported) Ondansetron 4 Mg Tab.rapdis, 4 MG PO Q8H PRN for NAUSEA/VOMITING-1ST LINE, (Reported) Oxycodone HCl 5 Mg Tablet, 5 MG PO Q6H PRN for PAIN-SEVERE, (Reported) Paroxetine HCl 20 Mg Tablet, 20 MG PO DAILY, (Reported) Potassium Chloride 10 Meq Tab.er.prt, 20 MEQ PO DAILY, (Reported) TAKES 2 (10MEQ) TABLETS Tamsulosin HCl 0.4 Mg Cap, 0.4 MG PO DAILY, (Reported) Triamcinolone Acet 15 Gm Cr, 1 EA TOP UD PRN for ITCHING, (Reported) Umeclidinium Brm/Vilanterol Tr 1 Each Blst.w.dev, 1 PUFF IH DAILY, (Reported) Patient Home Medication List Home Medication List Reviewed: Yes Review of Systems Review of Systems Constitutional: No no symptoms reported; see HPI; No chills, No diaphoresis, No dizziness, No fever, No malaise, No weakness, No weight gain, No weight loss, No other EENTM: No see HPI, No no symptoms reported, No ear discharge, No hearing loss, No ear pain, No blurred vision, No double vision, No eye pain, No tearing, No vision loss, No dental problems, No hoarseness, No mouth pain, No mouth swelling, No epistaxis, No nose congestion, No nose pain, No throat pain, No throat swelling, No other Respiratory: No no symptoms reported, No see HPI, No cough, No dyspnea on exertion, No hemoptysis, No orthopnea, No phlegm, No short of breath, No stridor, No wheezing, No other Cardiovascular: No no symptoms reported, No see HPI, No chest pain, No edema, No Hx of Intervention, No palpitations, No syncope, No vascular heart diseas, No other Gastrointestinal: No RUQ, No LUQ, No RLQ, No LLQ, No no symptoms reported, No see HPI, No abdominal pain, No constipation, No diarrhea, No dysphagia, No hem atemesis, No heartburn, No jaundice, No loss of appetite, No melena, No nausea, No vomiting, No other Musculoskeletal: No no symptoms reported; see HPI; No back pain, No gout, No joint pain, No joint swelling; muscle pain; No muscle stiffness, No muscle cramps, No muscle twitching, No muscle weakness, No neck pain, No other Skin: No no symptoms reported, No see HPI, No change in color, No change in hair/nails, No dryness, No hx of skin cancer, No lesions, No lumps, No pruritus, No rash, No other Psychiatric/Neurological: Denies No Symptoms Reported, Denies See HPI, Denies Anxiety, Denies Depressed, Denies Emotional Problems, Denies Headache, Denies Numbness, Denies Paresthesia, Denies Pre-Existing Deficit, Denies Seizure, Denies Tingling, Denies Tremors, Denies Weakness, Denies Other All Other Systems Reviewed Negative Unless Noted: Yes Past Mnzmnwm-Zbzuvt-Eelgjj Hx Patient Social History Alcohol Beverage of Choice: Beer, Whiskey Type Used: Cigarettes Former Smoker, Quit: Apr 23, 1969 2nd Hand Smoke Exposure: No Recent Foreign Travel: No Contact w/Someone Who Travel: No Recent Hopitalizations: No Immunizations Up To Date Tetanus Booster (TDap): Unknown PED Vaccines UTD: Yes Date of Pneumonia Vaccine: Feb 04, 2016 Date of Influenza Vaccine: Jan 09, 2018 Seasonal Allergies Seasonal Allergies: Yes Past Medical History Surgeries: Yes (Past hx of Suprapubic catheter, L TKR, Neuro stimulator placed and removed) Eye Surgery, Gallbladder, Joint Replacement, Orthopedic Respiratory: Yes (has home 02, has only used once in 2 years) Pneumonia, COPD Currently Using CPAP: No Currently Using BIPAP: No Cardiac: Yes Hypertension Neurological: Yes Concussion, Neuropathy, Traumatic Brain Injury Genitourinary: Yes (urinary incontinence, past hx of Suprapubic catheter, prostate problems) Prostate Problems, UTI-Chronic Gastrointestinal: Yes (on Iron replacement, Hx of abnormal LFT's) Abdominal Hernia, Gastrointestinal Bleed Musculoskeletal: Yes (chronic pain lower ext from trauma, run over by a tractor) Arthritis, Back Injury, Chronic Back Pain Endocrine: No HEENT: Yes (dry eyes, doesn't make tears) Loss of Vision: Right Hearing Impairment: Hard of Hearing, Hearing Aide Right, 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 Did You Recieve Any Treatments: Yes What Type of Treatment Did You: Chemotherapy Psychosocial: No Integumentary: Yes (thin/frail skin, scattered ecchymosis) Recent Skin Changes Blood Disorders: No Adverse Reaction/Blood Tranf: No Family Medical History Arthritis Colon cancer Coronary thrombosis Hypertension Myocardial infarction Respiratory disorder Heart Disease, Cancer, Hypertension Physical Exam Vital Signs Vital Signs - First Documented 09/24/19 19:53 Temp 36.5 Pulse 80 Resp 16 B/P (MAP) 147/76 (99) Pulse Ox 95 O2 Delivery Room Air Capillary Refill : Height, Weight, BMI Height: 5'11.00" Weight: 165lbs. 8.0oz. 74.087381mk; 22.00 BMI Method:Stated General Appearance: No Apparent Distress, WD/WN HEENT: PERRL/EOMI, TMs Normal, Normal ENT Inspection, Pharynx Normal Neck: Full Range of Motion, Normal Inspection, Non Tender, Supple, Carotid Bruit Respiratory: Chest Non Tender, Lungs Clear, Normal Breath Sounds, No Accessory Muscle Use, No Respiratory Distress Cardiovascular: Regular Rate, Rhythm, No Edema, No Gallop, No JVD, No Murmur, Normal Peripheral Pulses Gastrointestinal: Normal Bowel Sounds, No Organomegaly, No Pulsatile Mass, Non Tender, Soft Back: Normal Inspection, No CVA Tenderness, No Vertebral Tenderness Extremity: Normal Capillary Refill, Normal Inspection, Normal Range of Motion, Non Tender, No Calf Tenderness, No Pedal Edema Neurologic/Psychiatric: Alert, Oriented x3, No Motor/Sensory Deficits, Normal Mood/Affect Skin: Normal Color, Warm/Dry Progress/Results/Core Measures Suspected Sepsis SIRS Temperature: Pulse: Respiratory Rate: Laboratory Tests 09/24/19 19:58: White Blood Count 12.5H Blood Pressure / Mean: Laboratory Tests 09/24/19 19:58: Creatinine 0.60, Platelet Count 226, Total Bilirubin 0.9 Results/Orders Lab Results Laboratory Tests Test 09/24/19 19:58 09/24/19 21:05 Range/Units White Blood Count 12.5 H 4.3-11.0 10^3/uL Red Blood Count 4.59 4.35-5.85 10^6/uL Hemoglobin 13.0 L 13.3-17.7 G/DL Hematocrit 39 L 40-54 % Mean Corpuscular Volume 84 80-99 FL Mean Corpuscular Hemoglobin 28 25-34 PG Mean Corpuscular Hemoglobin Concent 34 32-36 G/DL Red Cell Distribution Width 13.4 10.0-14.5 % Platelet Count 226 130-400 10^3/uL Mean Platelet Volume 10.6 H 7.4-10.4 FL Neutrophils (%) (Auto) 78 H 42-75 % Lymphocytes (%) (Auto) 14 12-44 % Monocytes (%) (Auto) 6 0-12 % Eosinophils (%) (Auto) 1 0-10 % Basophils (%) (Auto) 0 0-10 % Neutrophils # (Auto) 9.8 H 1.8-7.8 X 10^3 Lymphocytes # (Auto) 1.8 1.0-4.0 X 10^3 Monocytes # (Auto) 0.7 0.0-1.0 X 10^3 Eosinophils # (Auto) 0.1 0.0-0.3 10^3/uL Basophils # (Auto) 0.0 0.0-0.1 10^3/uL Sodium Level 138 135-145 MMOL/L Potassium Level 3.1 L 3.6-5.0 MMOL/L Chloride Level 98 98-107 MMOL/L Carbon Dioxide Level 24 21-32 MMOL/L Anion Gap 16 H 5-14 MMOL/L Blood Urea Nitrogen 18 7-18 MG/DL Creatinine 0.60 0.60-1.30 MG/DL Estimat Glomerular Filtration Rate > 60 BUN/Creatinine Ratio 30 Glucose Level 101 70-105 MG/DL Calcium Level 9.2 8.5-10.1 MG/DL Corrected Calcium 9.5 8.5-10.1 MG/DL Total Bilirubin 0.9 0.1-1.0 MG/DL Aspartate Amino Transf (AST/SGOT) 36 H 5-34 U/L Alanine Aminotransferase (ALT/SGPT) 28 0-55 U/L Alkaline Phosphatase 99 40-136 U/L Troponin I < 0.30 <0.30 NG/ML Total Protein 7.2 6.4-8.2 GM/DL Albumin 3.6 3.2-4.5 GM/DL Urine Color YELLOW Urine Clarity CLEAR Urine pH 7.0 5-9 Urine Specific [place] 1.020 1.016-1.022 Urine Protein 1+ H NEGATIVE Urine Glucose (UA) NEGATIVE NEGATIVE Urine Ketones 2+ H NEGATIVE Urine Nitrite NEGATIVE NEGATIVE Urine Bilirubin 1+ H NEGATIVE Urine Urobilinogen 1.0 < = 1.0 MG/DL Urine Leukocyte Esterase NEGATIVE NEGATIVE Urine RBC (Auto) 3+ H NEGATIVE Urine RBC 50-100 H /HPF Urine WBC NONE /HPF Urine Squamous Epithelial Cells RARE /HPF Urine Renal Epithelial Cells 2-5 /HPF Urine Crystals NONE /LPF Urine Bacteria TRACE /HPF Urine Casts NONE /LPF Urine Mucus NEGATIVE /LPF Urine Culture Indicated NO Urine Opiates Screen NEGATIVE NEGATIVE Urine Oxycodone Screen NEGATIVE NEGATIVE Urine Methadone Screen NEGATIVE NEGATIVE Urine Propoxyphene Screen NEGATIVE NEGATIVE Urine Barbiturates Screen NEGATIVE NEGATIVE Ur Tricyclic Antidepressants Screen NEGATIVE NEGATIVE Urine Phencyclidine Screen NEGATIVE NEGATIVE Urine Amphetamines Screen NEGATIVE NEGATIVE Urine Methamphetamines Screen NEGATIVE NEGATIVE Urine Benzodiazepines Screen NEGATIVE NEGATIVE Urine Cocaine Screen NEGATIVE NEGATIVE Urine Cannabinoids Screen NEGATIVE NEGATIVE My Orders Orders - EDUARDA MCCLOUD MD Ed Iv/Invasive Line Start (09/24/19 19:48) Cbc With Automated Diff (09/24/19 19:48) Comprehensive Metabolic Panel (09/24/19 19:48) Urinalysis (09/24/19 19:48) Troponin I Fs (09/24/19 19:48) Ekg Tracing (09/24/19 19:48) Chest 1 View Ap/Pa Only (09/24/19 19:48) Ns Iv 1000 Ml (Sodium Chloride 0.9%) (09/24/19 19:48) Drug Screen Stat (Urine) (09/24/19 19:49) Straight Cath (Urinary) (09/24/19 20:57) Vital Signs/I&O 09/24/19 19:53 Temp 36.5 Pulse 80 Resp 16 B/P (MAP) 147/76 (99) Pulse Ox 95 O2 Delivery Room Air Capillary Refill : Progress Note : Time: 21:20 Progress Note Neg Eval in ED.. Long Hx of CHronic pain. Continue all home meds. F/u with PCP in 2-3 days. ECG Initial ECG Impression Date: Sep 24, 2019 Initial ECG Impression Time: 20:11 Initial ECG Rate: 66 Initial ECG Rhythm: Normal Sinus Initial ECG Intervals: Normal Initial ECG Impression: Normal Comment Sinus rhythm heart rate 66 occasional PVC Departure Impression Primary Impression: Encounter for medical screening examination Additional Impression: Chronic pain Disposition: HOME, SELF-CARE Condition: Stable Departure-Patient Inst. Decision time for Depature: 21:22 Referrals: SELF,SADIA DENT (PCP/Family) Primary Care Physician Add. Discharge Instructions: Negative evaluation in the emergency department. Continue all home medications. Follow-up with PCP in 2-3 days if any refill prescriptions for needed. EDUARDA MCCLOUD MD Sep 24, 2019 19:52
--- NOTE | 2019-09-24 20:03 | Diagnostic Imaging Report ---
INDICATION: Patient hurts all over Portable chest 7:53 PM Heart size and pulmonary vascularity are normal. Lungs are clear. There are no effusions or pneumothoraces. IMPRESSION: Negative chest Dictated by: Dictated on workstation # [id number]
[2019-09-24 20:04] LABS: BASOPHILS % (AUTO) 0 % (0-10); EOSINOPHILS # (AUTO) 0.1 10^3/uL (0.0-0.3); EOSINOPHILS % (AUTO) 1 % (0-10); HEMATOCRIT 39 % (40-54); LYMPHOCYTES # (AUTO) 1.8 X 10^3 (1.0-4.0); LYMPHOCYTES % (AUTO) 14 % (12-44); MEAN CORPUSCULAR HEMOGLOBIN 28 PG (25-34); MEAN CORPUSCULAR HGB CONC 34 G/DL (32-36); MEAN CORPUSCULAR VOLUME 84 FL (80-99); MEAN PLATELET VOLUME 10.6 FL (7.4-10.4); MONOCYTES # (AUTO) 0.7 X 10^3 (0.0-1.0); MONOCYTES % (AUTO) 6 % (0-12); NEUTROPHILS # (AUTO) 9.8 X 10^3 (1.8-7.8); NEUTROPHILS % (AUTO) 78 % (42-75); PLATELET COUNT 226 10^3/uL (130-400); RED CELL DISTRIBUTION WIDTH 13.4 % (10.0-14.5); WHITE BLOOD COUNT 12.5 10^3/uL (4.3-11.0)
[2019-09-24 20:21] LABS: ALANINE AMINOTRANSFERASE 28 U/L (0-55); ALKALINE PHOSPHATASE 99 U/L (40-136); BILIRUBIN,TOTAL 0.9 MG/DL (0.1-1.0); BUN/CREATININE RATIO 30; CALCIUM 9.2 MG/DL (8.5-10.1); CARBON DIOXIDE 24 MMOL/L (21-32); CHLORIDE 98 MMOL/L (98-107); GFR ESTIMATED > 60; GLUCOSE 101 MG/DL (70-105); POTASSIUM 3.1 MMOL/L (3.6-5.0); SODIUM 138 MMOL/L (135-145)
--- NOTE | 2019-09-24 20:21 | NUR ---
PT. IS TO CHANGE HIS FENTANYL PATCH EVERY 72 HOURS PER HIS DAUGHTER.
[2019-09-24 20:22] LABS: ALBUMIN 3.6 GM/DL (3.2-4.5); TOTAL PROTEIN 7.2 GM/DL (6.4-8.2)
--- NOTE | 2019-09-24 20:39 | NUR ---
PT ATTEMPTED TO VOID BUT WAS UNABLE TO GIVE A SAMPLE
[2019-09-24 21:15] LABS: CLARITY,URINE CLEAR; COLOR,URINE YELLOW; GLUCOSE, URINE (UA) NEGATIVE (NEGATIVE); KETONES,URINE 2+ (NEGATIVE); NITRITE,URINE NEGATIVE (NEGATIVE); PROTEIN,URINE 1+ (NEGATIVE)
[2019-09-24 21:16] LABS: BACTERIA,URINE TRACE /HPF; BILIRUBIN,URINE 1+ (NEGATIVE); LEUKOCYTE ESTERASE ,URINE NEGATIVE (NEGATIVE); RBC,URINE 50-100 /HPF; SQUAMOUS EPITHELIAL CELL,UR RARE /HPF
[2019-09-24 21:17] LABS: AMPHETAMINE SCREEN, URINE NEGATIVE (NEGATIVE); BARBITURATE SCREEN URINE NEGATIVE (NEGATIVE); BENZODIAZEPINES SCREEN URINE NEGATIVE (NEGATIVE); CANNABINOID SCREEN, URINE NEGATIVE (NEGATIVE); COCAINE SCREEN URINE NEGATIVE (NEGATIVE); METHADONE STAT NEGATIVE (NEGATIVE); METHAMPHETAMINE SCREEN URINE S NEGATIVE (NEGATIVE); OPIATE SCREEN URINE NEGATIVE (NEGATIVE); OXYCODONE STAT NEGATIVE (NEGATIVE); PROPOXYPHENE STAT NEGATIVE (NEGATIVE); TRICYCLIC ANTIDEPRESSANTS SCRE NEGATIVE (NEGATIVE)
[2019-09-24 21:24] VITALS: BP 165/68
--- OUTSIDE RECORDS SUMMARY | 2019-09-25 00:19 | XMS REPORT ---
Author Author Robert SEGUNDO [facility] Address [address] [place] [address] Care Team Providers Care Project Construction Manager Name Role Phone SADIA SEGUNDO Unavailable PROBLEMS Type Condition ICD9-CM Code YLU10-AN Code Onset Dates Condition S tatus SNOMED Code Problem Allergic rhinitis, cause unspecified J30.9 Feb, Active 27584392 Problem Memory loss, short term R41.3 Jun, Act garcia 90695291 Problem Generalized weakness R53.1 Feb, Active 32110503 Problem Risk for falls Z91.81 Jan, Active 42 0096376 Problem Unsteady gait R26.81 Jan, Active 394 715472 Problem Essential hypertension, benign I10 08 Feb, 011 Active 3124660 Problem Neuropathy of leg G57.90 Jun, Active 409624194 Problem Panlobular emphysema J43.1 Jul, Active 9653731 Problem Hypoxia R09.02 Feb, Active 4469480 02 Problem Hypoxemia R09.02 Active 392305284 Problem Abnormal LFTs (liver function tests) R94.5 Mar, Active 890246338 Problem Peripheral polyneuropathy G62.9 Acti ve 12815181 Problem Urinary retention R33.9 Jun, Active 464046083 Problem Lung cancer C34.90 Active 20095286 Problem Acid indigestion K30 Active 162 175544 Problem Major depressive disorder, single episode, in full remissi on F32.5 Active 95924439 Problem Carotid stenosis, bilateral I65.23 Ac tive [id number] ALLERGIES No Information ENCOUNTERS Encounter Location Date Diagnosis [address] [id number] [place] [address] Sep, [address] [id number] [address] Jul, [address] [id number] [place] [address] Jul, [address] [id number] [place] [address] Jul, [address] [id number] [place] [address] Jul, [address] [id number] [address] Jun, [address] [id number], [place] [address] Jun, [facility] Z00.00 ; Panlobular emphysema J43.1 ; Essential hypertension, benign I10 ; Major depressive disorder, single episode, in full remission F32.5 ; Peripheral daxa yneuropathy G62.9 ; Lung cancer C34.90 ; Carotid stenosis, bilateral I65.23 ; Acid indigestion K30 ; Urinary retention R33.9 ; Memory loss, short term R41.3 ; Neuropathy of leg G57.90 ; Abnormal LFTs (liver function tests) R94.5 and Unsteady gait R26.81 [facility] [address] [facility] [id number] [address] [place] [address] Jun, [address] [id number] [place] [address] Jun, [address] [id number] [address] May, [address] [id number], [place] [address] May, [address] [id number], [place] [address] May, [address] [id number], [place] [address] May, [address] [id number] [place] [address] May, [facility] [place] [address] [id number] [place] [address] May, Acute bronchitis, unspecifie d organism J20.9 and Peripheral polyneuropathy G62.9 [facility] [address] [facility] [id number] [place] [address] May, [facility] [place] [address] [id number], [place] [address] Apr, [facility] [place] [address] [id number], [place] [address] Apr, [facility] [place] [address] [id number], [place] [address] Apr, [facility] [address] [id number], [place] [address] Mar, [facility] [place] [address] [id number], [place] [address] Mar, [facility] [place] [address] [id number], [place] [address] Mar, [facility] [place] [address] [id number], [place] [address] Mar, Essential hypertension, osmani gn I10 ; Lung cancer C34.90 and Carotid stenosis, bilateral I65.23 [facility] [place] [address] [id number], [place] [address] Feb, [facility] [place] [address] [id number], [place] [address] Feb, Pneumonia due to infectious organism, unspecified laterality, unspecified part of lung J18.9 ; Hypoxia R09.02 ; Essential hypertension, benign I10 ; Encounter for immunization Z23 ; Risk for falls Z9 1.81 and Weakness R53.1 [facility] [address] [facility] [id number] [place] [address] Feb, [facility] [place] [address] [id number] [place] [address] Jan, [facility] [place] [address] [address] [place] [address] [address] [id number] [place] [address] Jan, [facility] [place] [address] [id number] [place] [address] Jan, [facility] [place] [address] [id number] [place] [address] Jan, [facility] [place] [address] [id number] [place] [address] Jan, [facility] [place] [address] [id number] [place] [address] Jan, [facility] [place] [address] [id number] [place] [address] Jan, [facility] [place] [address] [id number] [place] [address] Jan, [facility] [address] [facility] [id number] [address] [place] [address] Dec, [facility] [place] [address] [id number] [place] [address] Dec, [facility] [place] [address] [id number] [place] [address] Dec, [facility] [place] [address] [id number] [place] [address] Dec, Major depressive disorder, s rosibel episode, in full remission F32.5 ; Essential hypertension, benign I10 ; Panlobular emphysema J43.1 ; Lung cancer C34.90 and Hypoxemia R09.02 [facility] [place] [address] [id number] [place] [address] Dec, [facility] [place] [address] [id number] [place] [address] Nov, [facility] [place] [facility] [address] [place] [address] [address] [id number] [place] [address] Nov, [facility] [place] [address] [address] [place] [address] [address] [id number] [place] [address] Nov, [facility] [place] [address] [id number] [place] [address] Nov, [facility] [place] [address] [id number] [place] [address] Oct, [facility] [address] [facility] [id number] [address] [address] Oct, [facility] [place] [address] [id number] [place] [address] Oct, [facility] [place] [address] [id number] [place] [address] Oct, [facility] [place] [address] [id number] [place] [address] Oct, [facility] [place] [address] [id number] [place] [address] Oct, [facility] [place] [address] [id number] [place] [address] Oct, [facility] [place] [address] [id number] [place] [address] Oct, [facility] [place] [address] [id number] [place] [address] Oct, [facility] [place] [address] [id number] [place] [address] Oct, Carotid stenosis, bilateral I65.23 [facility] [place] [address] [id number] [place] [address] Oct, [facility] [place] [facility] [address] [id number] [place] [address] Sep, Productive cough R05 [facility] [place] [address] [id number] [place] [address] Sep, [facility] [place] [address] [id number] [place] [address] Sep, Pneumonia due to infectious organism, unspecified laterality, unspecified part of lung J18.9 and Lung cancer C34.90 [facility] [place] [address] [id number] [place] [address] Sep, [facility] [place] [address] [id number] [place] [address] Sep, [facility] [place] [address] [id number] [place] [address] August, [facility] [place] [address] [id number] [place] [address] August, [facility] [place] [address] [id number] [place] [address] August, [facility] [place] [address] [id number] [place] [address] Jul, [facility] [place] [address] [id number] [place] [address] Jul, [facility] [place] [address] [id number] [place] [address] Jul, [facility] [place] [address] [id number] [place] [address] Jul, [facility] [place] [address] [id number] [address] Jul, [facility] [place] [address] [facility] [place] [address] Jun, Acid indigestion K30 ; Essential hypertension, benign I10 ; Panlobular emphysema J43.1 and Yeast dermatitis of penis B37.49 [facility] [place] [address] [id number] [place] [address] Jun, Lung cancer C34.90 [facility] [place] [address] [id number] [place] [address] Jun, [facility] [address] [id number] [address] [place] [address] Jun, [facility] [place] [address] [address] [place] [address] [address] [id number] [place] [address] Jun, [facility] [place] [facility] [address] [id number] [place] [address] Jun, [facility] [place] [facility] [address] [place] [address] [address] [id number] [place] [address] Jun, [facility] [place] [facility] [address] [place] [address] [address] [id number] [place] [address] May, [facility] [place] [facility] [address] [place] [address] [address] [id number] [place] [address] May, [facility] [place] [facility] [address] [place] [address] [address] [id number] [address] May, [facility] [place] [facility] [address] [place] [address] [address] [id number] [place] [address] May, [facility] [place] [address] [address] [place], [place] [address]VD 340[address] [id number] [place] [address] May, [facility] [address] [id number] [address] [place] [address] Apr, [facility] [address] [id number] [address] [place] [address] Apr, [facility] [address] [facility] [id number] [address] [place] [address] Apr, [facility] [address] [id number] [address] [place] [address] Apr, [facility] [address] [id number] [address] [place] [address] Mar, [facility] [address] [id number] [address] [place] [address] Mar, [facility] [address] [id number] [address] [place] [address] Mar, [facility] [address] [id number] [address] [place] [address] Mar, [facility] [address] [id number] [address] [place] [address] Mar, [facility] [address] [id number] [address] [place] [address] Feb, [facility] [address] [facility] [id number] [address] [place] [address] Feb, [facility] [address] [facility] [id number] [address] [place] [address] Feb, [facility] [address] [facility] [id number] [address] [place] [address] 16 Feb, 2018 [facility] [address] [facility] [id number] [address] [place] [address] 15 Feb, 2018 [facility] [address] [facility] [id number] [address] [place] [address] 14 Feb, 2018 IMMUNIZATIONS No Known Immunizations SOCIAL HISTORY Never Assessed REASON FOR VISIT Requests return call PLAN OF CARE VITAL SIGNS MEDICATIONS Unknown Medications RESULTS No Results PROCEDURES No Known procedures INSTRUCTIONS MEDICATIONS ADMINISTERED No Known Medications MEDICAL (GENERAL) HISTORY Type Description Date Medical History Lung cancer Medical History Hypoxemia Medical History Urinary retention Medical History Unsteady gait Medical History Essential hypertension, benign Medical History Generalized weakness Medical History Risk for falls Medical History Allergic rhinitis, cause unspecified Medical History Memory loss, short term Medical History Malignant neoplasm of middle lobe of rig ht lung Medical History Neuropathy of leg Medical History Abnormal LFTs (liver function tests) Medical History Panlobular emphysema Medical History Lung cancer Medical History Acid indigestion Medical History Carotid stenosis, bilateral Surgical History back surgeries, x3 Surgical History enlarged hole into bladder Surgical History lap arsenio Surgical History appendectomy Surgical History colonoscopy-12/2018[facility]Dr Beal Hospitalization History ran over by a tractor, fx le ft leg, fx rib bones icu, hosp, rehab w/pneumonia & flu
--- OUTSIDE RECORDS SUMMARY | 2019-09-25 00:19 | XMS REPORT ---
Author Author Robert SEGUNDO [facility] Address [address] [place] [address] Care Team Providers Care Toolroom Keeper Name Role Phone SADIA SEGUNDO Unavailable PROBLEMS Type Condition ICD9-CM Code XYO15-TL Code Onset Dates Condition S tatus SNOMED Code Problem Allergic rhinitis, cause unspecified J30.9 08 Feb, 2011 Active 57141515 Problem Memory loss, short term R41.3 Jun, Act garcia 25915243 Problem Generalized weakness R53.1 Feb, Active 65033524 Problem Risk for falls Z91.81 Jan, Active 42 5695493 Problem Unsteady gait R26.81 Jan, Active 394 683170 Problem Essential hypertension, benign I10 08 Feb, 011 Active 9971115 Problem Neuropathy of leg G57.90 Jun, Active 188856038 Problem Panlobular emphysema J43.1 Jul, Active 4645391 Problem Hypoxia R09.02 Feb, Active 8531654 02 Problem Hypoxemia R09.02 Active 538865927 Problem Abnormal LFTs (liver function tests) R94.5 Mar, Active 274256862 Problem Peripheral polyneuropathy G62.9 Acti ve 50911133 Problem Urinary retention R33.9 Jun, Active 285549829 Problem Lung cancer C34.90 Active 59275942 Problem Acid indigestion K30 Active 162 893488 Problem Major depressive disorder, single episode, in full remissi on F32.5 Active 76788612 Problem Carotid stenosis, bilateral I65.23 Ac tive [id number] ALLERGIES No Information ENCOUNTERS Encounter Location Date Diagnosis [address] [id number] [place] [address] Sep, [address] [id number] [address] Jun, [address] 340[address] [id number] [address] 10 Jun, 2019 Encounter for Medicare adriana ibarra wellness exam Z00.00 ; Panlobular emphysema J43.1 [...] function tests) R94.5 and Unsteady gait R26.81 [facility] [address] [facility] [id number] [address] [place] [address] 09 Jun, [address] 340[address] [id number] [address] Jun, [address] 340[address] [id number], [place] [address] May, [address] 340[address] [id number], [place] [address] May, [address] 340[address] [id number], [place] [address] May, [address] 340[address] [id number], [place] [address] May, [address] 340[address] [id number], [place] [address] May, [address] 340[address] [id number], [place] [address] May, Acute bronchitis, unspecifie d organism J20.9 and Peripheral polyneuropathy G62.9 [place] [address] [facility] [id number] [address] [place] [address] 04 May, [address] 340[address] [id number], [place] [address] Apr, [facility] [address] [id number] [place] [address], [address] [address] [facility] [address] [id number] [place] [address], [address] [facility] [address] [id number] [place] [address] Mar, [address] [facility] [address] [id number] [place] [address] Mar, [address] [facility] [address] [id number], [place] [address], [address] [facility] [address] [id number], [place] [address] Mar, Essential hypertension, osmani gn I10 ; Lung cancer C34.90 and Carotid stenosis, bilateral I65.23 [facility] [place] [address] [id number], [place] [address] Feb, [facility] [place] [address] [id number], [place] [address] Feb, Pneumonia due to infectious organism, unspecified laterality, unspecified part of lung J18.9 ; Hypoxia R09.02 ; Essential hypertension, benign I10 ; Encounter for immunization Z23 ; Risk for falls Z9 1.81 and Weakness R53.1 [facility] [address] [facility] [id number] [address] [place] [address] Feb, [address] [facility] [address] [id number] [place] [address], [address] [facility] [address] [id number], [place] [address], [address] [address] [facility] [address] [id number] [place] [address] Jan, [facility] [place] [address] [id number], [place] [address] Jan, [facility] [address]B [id number] [place] [address] Jan, [facility] [place] [address]B [id number] [place] [address] Jan, [facility] [place] [address] [id number] [place] [address] Jan, [facility] [place] [address] [id number] [place] [address] Jan, [facility] [address] [facility] [id number] [address] [place] [address] Dec, [facility] [place] [address] [id number] [place] [address] Dec, [facility] [place] [address] [id number] [place] [address] Dec, [facility] [place] [address] [id number] [place] [address] Dec, Major depressive disorder, s rosibel episode, in full remission F32.5 ; Essential hypertension, benign I10 ; Panlobular emphysema J43.1 ; Lung cancer C34.90 and Hypoxemia R09.02 [facility] [address] [id number] [place] [address] Dec, [facility] [address] [id number] [place] [address] Nov, [facility] [place] [address] [id number] [place] [address] Nov, [facility] [address] [id number] [place] [address] Nov, [facility] [address] [id number] [place] [address], [address] [facility] [address] [id number] [place] [address] Oct, [facility] [address] [id number] [address] [place] [address] Oct, [facility] [address]B [id number] [place] [address] Oct, [facility] [place] [address]B [id number] [place] [address] Oct, [facility] [place] [address]B [id number] [place] [address] Oct, [facility] [place] [address] [id number] [place] [address] Oct, [facility] [place] [address] [id number] [place] [address] Oct, [facility] [address] [id number] [place] [address] Oct, [facility] [address] [id number] [place] [address] Oct, [facility] [address] [id number] [place] [address] Oct, Carotid stenosis, bilateral I65.23 [facility] [address] [id number] [place] [address] Oct, [facility] [address] [id number] [place] [address] Sep, Productive cough R05 [facility] [address] [id number] [place] [address] Sep, [facility] [address] [id number] [place] [address] Sep, Pneumonia due to infectious organism, unspecified laterality, unspecified part of lung J18.9 and Lung cancer C34.90 [facility] [address] [id number] [place] [address] Sep, [facility] [address] [id number] [place] [address] Sep, [facility] [address] [id number] [place] [address] August, [facility] [place] [address] [id number] [place] [address] August, [facility] [address] [id number] [place] [address] August, [facility] [place] [address] [id number] [place] [address] Jul, [facility] [address] 340[address] [id number] [place] [address] Jul, [facility] [address] [id number] [place] [address] Jul, [facility] [address] 340[address] [id number] [place] [address] Jul, [facility] [address] [id number] [place] [address] Jul, [facility] [address] [place] [address] Jun, Acid indigestion K30 ; Essential hypertension, benign I10 ; Panlobular emphysema J43.1 and Yeast dermatitis of penis B37.49 [facility] [address] 340[address] [id number] [place] [address] Jun, Lung cancer C34.90 [facility] [address] [id number] [place] [address] Jun, [facility] [address] [facility] [id number] [address] [place] [address] Jun, [facility] [address] [id number] [place] [address] Jun, [facility] [address] [id number] [place] [address] Jun, [facility] [address] [place], [place] [address] 340[address] [id number] [place] [address] Jun, [facility] [place] [facility] [address] [place], [place] [address] 340[place] [id number] [place] [address] May, [facility] [place] [facility] [address] [place], [place] [address] 340[place] [id number] [place] [address] May, [facility] [place] [facility] [address] [place], [place] [address] 340B [id number] [place] [address] May, [facility] [place] [facility] [address] [place], [place] [address] 340B [id number] [place] [address] May, [facility] [place] [facility] [address] [place], [place] [address] 340B [id number] [place] [address] May, [facility] [address] [id number] [address] [place] [address] Apr, [facility] [address] [id number] [address] [place] [address] Apr, [facility] [address] [id number] [address] [place] [address] Apr, [facility] [address] [id number] [address] [place] [address] Apr, [facility] [address] [id number] [address] [place] [address] Mar, [facility] [address] [id number] [address] [place] [address] Mar, [facility] [address] [id number] [address] [place] [address] Mar, [facility] [address] [id number] [address] [place] [address] Mar, [facility] [address] [id number] [address] [place] [address] Mar, [facility] [address] [id number] [address] [place] [address] 24 Feb, 2018 [facility] [address] [facility] [id number] [address] [place] [address] Feb, [facility] [address] [facility] [id number] [address] [place] [address] 19 Feb, 2018 [facility] [address] [facility] [id number] [address] [place] [address] 16 Feb, 2018 [facility] [address] [facility] [id number] [address] [place] [address] 15 Feb, 2018 [facility] [address] [facility] [id number] [address] [place] [address] 14 Feb, 2018 IMMUNIZATIONS No Known Immunizations SOCIAL HISTORY Never Assessed REASON FOR VISIT chronic PLAN OF CARE Activity Details Follow Up 2 Months Reason: VITAL SIGNS MEDICATIONS Unknown Medications RESULTS No Results PROCEDURES Procedure Date Ordered Result Body Site Minor complication (15 mins) July 19, 2018 INSTRUCTIONS MEDICATIONS ADMINISTERED No Known Medications MEDICAL [...] lap arsenio Surgical History appendectomy Surgical History colon[facility]12/[facility]Dr Beal Hospitalization History ran over by a tractor, fx le ft leg, fx rib bones icu, hosp, rehab w/pneumonia & flu
--- OUTSIDE RECORDS SUMMARY | 2019-09-25 00:21 | XMS REPORT | Continuity of Care Document ---
Author Organization Unknown Address Unknown Phone Unavailable Allergies Active Description Code Type Severity Reaction Onset Reported/Identified Relationship to Patient Clinical Status Yes No Known Medication Allergies Drug N/A N/A Yes BACLOFEN SEVERE SEVERE Yes REGLAN SEVERE SEVERE Yes baclofen [id number] Drug Allergy Unknown N/A 11/24/[id number] ug Allergy Unknown N/A 11/24/2018 Medications Medication Packaging Start Date St op Date Route Dosage Sig NORMAL SALINE 1000CC IV BAG INJ 0.9 % (NS 1000CC IV BAG) ml 01/06/2019 01/21/2019 CONTINUOUSEVERY 0 Hour Ondansetron 4mg oral DissolveTab (Zofran) Dose(s) 01/06/2019 02/05/2019 PRN Q8H OXYCODONE 5MG/APAP 325MG TAB(PERCOCET-5) TAB 01/06/2019 01/13/2019 PRN Q6H IPRATROPIUM/ALBUTEROL INH SO LN (DUO-NEB INH SOLN) Dose(s) 01/06/2019 01/13/2019 PRN Q12H ALBUTEROL INHALER MDI 8 GM (VENTOLIN HFA) Dose(s) 01/06/2019 01/16/2019 PRN Q6H PREDNISOLONE 1% OPH DRP 1 % (PRED Forte) Dose(s) 01/06/2019 01/13/2019 BID&0800,2000 GABAPENTIN CAP 300 MG (NEURONTIN) Dose(s) 01/06/2019 01/13/2019 TID&0800,1400,2000 TRIAMCINOLONE CRM CRM 0.1 % (ARISTOCORT C RM) Dose(s) 01/06/2019 01/16/2019 PRN BID NYSTATIN CREAM CRM (MYCOSTATIN CRM) Dose(s) 01/06/2019 01/20/2019 PRN BID ALBUTEROL INHALER MDI 8 GM (VENTOLIN HFA) Dose(s) 01/07/2019 01/17/2019 PRN Q4H POLY/BACI/NEOMY 1APP OINT (NEOSPORIN) daniel 01/07/2019 01/07/2019 ONCE&0830 PAROXETINE TAB 20 MG (PAXIL) Dose(s) 01/07/2019 01/13/2019 Daily&0900 POTASSIUM CHLORIDE TAB 10 MEQ (K-DUR) Dose(s) 01/07/2019 02/05/2019 Daily&0900 LORATADINE TAB 10 MG (CLARITIN) Dose(s) 01/07/2019 01/13/2019 Daily&0900 AMLODIPINE TAB 10 MG (NORVASC) Dose(s) 01/07/2019 01/13/2019 Daily&0900 ASCORBIC ACID TAB 500 MG (VITAMIN C) Dose(s) 01/07/2019 01/13/2019 Daily&0900 PANTOPRAZOLE TAB 40 MG (PROTONIX) MG 01/07/2019 01/13/2019 Daily&0900 MultiVits (Thera M Plus) (mu bekfli-qmxc-wwmrjop) oral tablet Dose(s) 01/07/2019 02/05/2019 Daily&0900 TAMSULOSIN CAP 0.4 MG (FLOMAX) Dose(s) 01/07/2019 01/13/2019 QPM&1800 FENTANYL PATCH PAT 100 MCG/H R (DURAGESIC PATCH) Dose(s) 01/08/2019 01/20/2019 Q72H&0800 GOLYTELY LIQ (GOLYTELY) ML S 01/08/2019 01/08/2019 ONCE&0830 CALMOSEPTINE OINT TUBE (RISAMINE OINT) daniel 01/08/2019 01/15/2019 PRN QID CALMOSEPTINE OINT TUBE (RISAMINE OINT) daniel 01/08/2019 01/15/2019 PRN QID Problems Date Dx Coded Attending Type Code Diagnosis Diagnosed By 06/05/2018 Zack Cook MD C3 4.2 Adenocarcinoma, right lung, middle lobe 06/20/2018 KRISTINA NUNEZ MD Ot E87.6 HYPOKALEMIA 06/20/2018 KRISTINA NUNEZ MD Ot 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 06/20/2018 KRISTINA NUNEZ MD, Ot G62.9 POLYNEUROPATHY, UNSPECIFIED 06/20/2018 KRISTINA NUNEZ MD, Ot G89.29 OTHER CHRONIC PAIN 06/20/2018 KRISTINA [...] OF TRAUMATIC BRAIN INJU 06/20/2018 KRISTINA NUNEZ MD Ot Z87.891 PERSONAL HISTORY [...] TO INHALATION OF FOOD AN 09/11/2018 KRISTINA NUNZE MD Ot K59.00 CONSTIPATION, UNSPECIFIED 09/11/2018 KRISTINA [...] 09/11/2018 KRISTINA NUNEZ MD Ot Z79.899 OTHER REGULATORY PROCESS MANAGER (CURRENT) DRUG THERAPY 09/11/2018 KRISTINA NUNEZ MD Ot Z85.118 PERSONAL HISTORY OF MALIGNANT NEOPLASM O 09/11/2018 KRISTINA NUNEZ MD Ot Z87.440 PERSONAL HISTORY OF URINARY (TRACT) INFE 09/11/2018 KRISTINA NUNEZ MD Ot Z87.820 PERSONAL HISTORY OF TRAUMATIC BRAIN INJU 09/11/2018 KRISTINA NUNEZ MD Ot Z87.891 PERSONAL HISTORY OF NICOTINE DEPENDENCE 09/11/2018 ENRIQUE DENT, KRISTINA Salas Ot Z92.21 PERSONAL HISTORY OF ANTINEOPLASTIC CHEMO 09/11/2018 KRISTINA NUNEZ MD Ot 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 09/20/2018 OLIVAREZ DO BEBETO Ot F32.9 MAJOR DEPRESSIVE DISORDER, SINGLE EPISOD 09/20/2018 OLIVAREZ DO BEBETO Ot G62.9 POLYNEUROPATHY, UNSPECIFIED 09/20/2018 OLIVAREZ DO, BEBETO Ot G89.29 OTHER CHRONIC PAIN 09/20/2018 OLIVAREZ DO BEBETO Ot I10 ESSENTIAL (PRIMARY) HYPERTENSION 09/20/2018 OLIVAREZ DO BEBETO Ot J18.9 PNEUMONIA, UNSPECIFIED ORGANISM 09/20/2018 OLIVAREZ DO BEBETO Ot K21.9 GASTRO-ESOPHAGEAL REFLUX DISEASE WITHOUT 09/20/2018 OLIVAREZ DO BEBETO Ot M19.91 PRIMARY OSTEOARTHRITIS, UNSPECIFIED SITE 09/20/2018 OLIVAREZ DO BEBETO Ot R32 UNSPECIFIED URINARY INCONTINENCE 09/20/2018 JUANIS MCADAMS BEBETO Ot Z85.11 8 PERSONAL HISTORY OF MALIGNANT NEOPLASM O 09/20/2018 JUANIS MCADAMS BEBETO Ot Z85.46 PERSONAL HISTORY OF MALIGNANT NEOPLASM O 09/20/2018 JUANIS MCADAMS BEBETO Ot Z87.82 0 PERSONAL HISTORY OF TRAUMATIC BRAIN INJU 09/20/2018 JUANIS MCADAMS BEBETO Ot Z87.89 1 PERSONAL HISTORY OF NICOTINE DEPENDENCE 09/20/2018 JUANIS MCADAMS BEBETO Ot Z90.79 ACQUIRED ABSENCE OF OTHER GENITAL ORGAN( 11/15/2018 KRYSTIN DENT, KAYCE V Ot C34.2 MALIGNANT NEOPLASM OF MIDDLE LOBE, [facility] 11/15/2018 KRYSTIN DENT, KAYCE V Ot Z87.81 PERSONAL HISTORY OF (HEALED) TRAUMATIC F 11/18/2018 GREG DENT, AMBROSE Yi Ot 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 11/18/2018 AMBROSE GARZA MD Ot E87 .6 HYPOKALEMIA 11/18/2018 AMBROSE GARZA MD Ot G62 .9 POLYNEUROPATHY, UNSPECIFIED 11/18/2018 AMBROSE GARZA MD Ot G89.29 OTHER CHRONIC PAIN 11/18/2018 AMBROSE GARZA MD Ot H57.89 OTHER SPECIFIED DISORDERS OF EYE AND ADN 11/18/2018 AMBROSE GARZA MD Ot H91.91 UNSPECIFIED HEARING LOSS, RIGHT EAR 11/18/2018 AMBROSE GARZA MD Ot I10 ESSENTIAL (PRIMARY) HYPERTENSION 11/18/2018 AMBROSE GARZA MD Ot J44 .9 CHRONIC OBSTRUCTIVE PULMONARY DISEASE, U 11/18/2018 AMBROSE GARZA MD Ot L03.116 CELLULITIS OF LEFT LOWER LIMB 11/18/2018 AMBROSE GARZA MD Ot M19.91 PRIMARY OSTEOARTHRITIS, UNSPECIFIED SITE 11/18/2018 AMBROSE GARZA MD Ot M54 .9 DORSALGIA, UNSPECIFIED 11/18/2018 AMBROSE GARZA MD Ot M79.671 PAIN IN RIGHT FOOT 11/18/2018 AMBROSE GARZA MD Ot R11 .2 NAUSEA WITH VOMITING, UNSPECIFIED 11/18/2018 AMBROSE GARZA MD Ot R32 UNSPECIFIED URINARY INCONTINENCE 11/18/2018 AMBROSE GARZA MD Ot R41 .0 DISORIENTATION, UNSPECIFIED 11/18/2018 AMBROSE GARZA MD Ot Z85.118 PERSONAL HISTORY OF MALIGNANT NEOPLASM O 11/18/2018 AMBROSE GARZA MD Ot Z87.01 PERSONAL HISTORY OF PNEUMONIA (RECURRENT 11/18/2018 AMBROSE GARZA MD Ot Z87.440 PERSONAL HISTORY OF URINARY (TRACT) INFE 11/18/2018 AMBROSE GARZA MD Ot Z87.820 PERSONAL HISTORY OF TRAUMATIC BRAIN INJU 11/18/2018 AMBROSE GARZA MD Ot Z87.891 PERSONAL HISTORY OF NICOTINE DEPENDENCE 11/18/2018 AMBROSE GARZA MD Ot Z92.21 PERSONAL HISTORY OF ANTINEOPLASTIC CHEMO 11/18/2018 AMBROSE GARZA MD Ot Z97 .4 PRESENCE OF EXTERNAL HEARING-AID 11/25/2018 BEBETO OLIVAREZ DO Ot C34.2 MALIGNANT NEOPLASM OF MIDDLE LOBE, [facility] 11/25/2018 BEBETO OLIVAREZ DO Ot 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 11/25/2018 OLIVAREZ DO, BEBETO Ot H57.89 OTHER SPECIFIED DISORDERS OF EYE AND ADN 11/25/2018 OLIVAREZ DO, BEBETO Ot H91.91 UNSPECIFIED HEARING LOSS, RIGHT EAR 11/25/2018 OLIVAREZ DO BEBETO Ot I10 ESSENTIAL (PRIMARY) HYPERTENSION 11/25/2018 JUANIS DO BEBETO Ot J18.9 PNEUMONIA, UNSPECIFIED ORGANISM 11/25/2018 JUANIS MCADAMS BEBETO Ot J30.2 OTHER SEASONAL ALLERGIC RHINITIS 11/25/2018 JUANIS DO BEBETO Ot J44.9 CHRONIC OBSTRUCTIVE PULMONARY DISEASE, U 11/25/2018 JUANIS DO BEBETO Ot M19.91 PRIMARY OSTEOARTHRITIS, UNSPECIFIED SITE 11/25/2018 OLIVAREZ DO BEBETO Ot M54.9 DORSALGIA, UNSPECIFIED 11/25/2018 OLIVAREZ DO BEBETO Ot N42.9 DISORDER OF PROSTATE, UNSPECIFIED 11/25/2018 OLIVAREZ DO BEBETO Ot R32 UNSPECIFIED URINARY INCONTINENCE 11/25/2018 JUANIS MCADAMS BEBETO Ot Z79.89 9 OTHER REGULATORY PROCESS MANAGER (CURRENT) DRUG THERAPY 11/25/2018 JUANIS MCADAMS BEBETO Ot Z87.82 0 PERSONAL HISTORY OF TRAUMATIC BRAIN INJU 11/25/2018 JUANIS MCADAMS BEBETO Ot Z87.89 1 PERSONAL HISTORY OF NICOTINE DEPENDENCE 11/25/2018 JUANIS MCADAMS BEBETO Ot Z91.19 PATIENT'S NONCOMPLIANCE W [facility] TR 11/25/2018 JUANIS MCADAMS BEBETO Ot Z96.65 2 PRESENCE OF LEFT ARTIFICIAL KNEE JOINT 11/25/2018 JUANIS MCADAMS BEBETO Ot 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 11/25/2018 JUANIS MCADAMS BEBETO Ot C34.2 MALIGNANT NEOPLASM OF MIDDLE LOBE, [facility] 11/25/2018 JUANIS MCADAMS BEBETO Ot 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 11/25/2018 JUANIS MCADAMS BEBETO Ot H57.89 OTHER SPECIFIED DISORDERS OF EYE AND ADN 11/25/2018 JUANIS MCADAMS BEBETO Ot H91.91 UNSPECIFIED HEARING LOSS, RIGHT EAR 11/25/2018 JUANIS DO BEBETO Ot I10 ESSENTIAL (PRIMARY) HYPERTENSION 11/25/2018 JUANIS DO BEBETO Ot J18.1 LOBAR PNEUMONIA, UNSPECIFIED ORGANISM 11/25/2018 JUANIS MCADAMS BEBETO Ot J18.9 PNEUMONIA, UNSPECIFIED ORGANISM 11/25/2018 BEBETO OLIVAREZ DO Ot J30.2 OTHER SEASONAL ALLERGIC RHINITIS 11/25/2018 BEBETO OLIVAREZ DO Ot J44.9 CHRONIC OBSTRUCTIVE PULMONARY DISEASE, U 11/25/2018 BEBETO OLIVAREZ DO Ot M19.91 PRIMARY OSTEOARTHRITIS, UNSPECIFIED SITE 11/25/2018 BEBETO OLIVAREZ DO Ot M54.9 DORSALGIA, UNSPECIFIED 11/25/2018 BEBETO OLIVAREZ DO Ot N42.9 DISORDER OF PROSTATE, UNSPECIFIED 11/25/2018 BEBETO OLIVAREZ DO Ot R32 UNSPECIFIED URINARY INCONTINENCE 11/25/2018 BEBETO OLIVAREZ DO Ot Z79.89 9 OTHER LONGTERM (CURRENT) DRUG THERAPY 11/25/2018 BEBETO OLIVAREZ DO Ot Z87.82 0 PERSONAL HISTORY OF TRAUMATIC BRAIN INJU 11/25/2018 BEBETO OLIVAREZ DO Ot Z87.89 1 PERSONAL HISTORY OF NICOTINE DEPENDENCE 11/25/2018 BEBETO OLIVAREZ DO Ot Z91.19 PATIENT'S NONCOMPLIANCE W [facility] TR 11/25/2018 BEBETO OLIVAREZ DO Ot Z96.65 2 PRESENCE OF LEFT ARTIFICIAL KNEE JOINT 11/25/2018 BEBETO OLIVAREZ DO Ot 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 12/20/2018 FARNAZ MCKEON DO Ot I10 ESSENTIAL (PRIMARY) HYPERTENSION 12/20/2018 FARNAZ MCKEON DO, Ot J44.9 CHRONIC OBSTRUCTIVE PULMONARY DISEASE, U 12/20/2018 FARNAZ MCKEON DO, Ot S00.31XA ABRASION OF NOSE, INITIAL ENCOUNTER 12/20/2018 FARNAZ MCKEON DO Ot S62.515A NONDISP FX OF PROXIMAL PHALANX OF LEFT T 12/20/2018 FARNAZ MCKEON DO Ot S69.92XA UNSP INJURY OF LEFT WRIST, HAND AND FING 12/20/2018 FARNAZ MCKEON DO Ot W01.118A FALL SAME LEV FR SLIP/TRIP W STRK AGNST 12/20/2018 FARNAZ MCKEON DO Ot Z80.0 FAMILY HISTORY OF MALIGNANT NEOPLASM OF 12/20/2018 FARNAZ MCKEON DO Ot Z82.49 FAMILY HX OF ISCHEM HEART DIS AND OTH DI 12/20/2018 FARNAZ MCKEON DO Ot Z85.118 PERSONAL HISTORY OF MALIGNANT NEOPLASM O 12/20/2018 FARNAZ MCKEON DO Ot Z87.440 PERSONAL HISTORY OF URINARY (TRACT) INFE 12/20/2018 [facility], FARNAZ Ot Z87.891 PERSONAL HISTORY OF NICOTINE DEPENDENCE 12/20/2018 [facility], FARNAZ Ot Z88.8 ALLERGY STATUS TO [facility] DRUG/MEDS/BIOL SUB 12/20/2018 [facility], FARNAZ Ot Z96.652 PRESENCE OF LEFT ARTIFICIAL KNEE JOINT 12/20/2018 [facility], FARNAZ Ot Z99.81 DEPENDENCE ON SUPPLEMENTAL OXYGEN 12/24/2018 [facility], FARNAZ Ot I10 ESSENTIAL (PRIMARY) HYPERTENSION 12/24/2018 MCKEON , FARNAZ Ot J44.9 CHRONIC OBSTRUCTIVE PULMONARY DISEASE, U 12/24/2018 MIKE MCADAMS, FARNAZ Ot S00.31XA ABRASION OF NOSE, INITIAL ENCOUNTER 12/24/2018 MIKE , FARNAZ Ot S62.515A NONDISP FX OF PROXIMAL PHALANX OF LEFT T 12/24/2018 [facility], FARNAZ Ot S69.92XA UNSP INJURY OF LEFT WRIST, HAND AND FING 12/24/2018 [facility], FARNAZ Ot W01.118A FALL SAME LEV FR SLIP/TRIP W STRK AGNST 12/24/2018 [facility], FARNAZ Ot Z80.0 FAMILY HISTORY OF MALIGNANT NEOPLASM OF 12/24/2018 [facility], FARNAZ Ot Z82.49 FAMILY HX OF ISCHEM HEART DIS AND OTH DI 12/24/2018 [facility], FARNAZ Ot Z85.118 PERSONAL HISTORY OF MALIGNANT NEOPLASM O 12/24/2018 [facility], FARNAZ Ot Z87.440 PERSONAL HISTORY OF URINARY (TRACT) INFE 12/24/2018 [facility], FARNAZ Ot Z87.891 PERSONAL HISTORY OF NICOTINE DEPENDENCE 12/24/2018 [facility], FARNAZ Ot Z88.8 ALLERGY STATUS TO OTH DRUG/MEDS/BIOL SUB 12/24/2018 [facility], FARNAZ Ot Z96.652 PRESENCE OF LEFT ARTIFICIAL KNEE JOINT 12/24/2018 MCKEON , FARNAZ Ot Z99.81 DEPENDENCE ON SUPPLEMENTAL OXYGEN 12/30/2018 KRYSTIN DENT, KAYCE V Ot C34.2 MALIGNANT NEOPLASM OF MIDDLE LOBE, [facility] 12/30/2018 KRYSTIN DENT, KAYCE V Ot Z87.81 PERSONAL HISTORY OF (HEALED) TRAUMATIC F 01/06/2019 GIOVANI CAMPBELL DO Ot D64 .9 ANEMIA, UNSPECIFIED 01/06/2019 GIOVANI CAMPBELL DO Ot I10 ESSENTIAL (PRIMARY) HYPERTENSION 01/06/2019 GIOVANI CAMPBELL DO Ot J44 .9 CHRONIC OBSTRUCTIVE PULMONARY DISEASE, U 01/06/2019 GIOVANI CAMPBELL DO, Ot K62 .5 HEMORRHAGE OF ANUS AND RECTUM 01/06/2019 GIOVANI CAMPBELL DO, Ot K92 .2 GASTROINTESTINAL HEMORRHAGE, UNSPECIFIED 01/06/2019 GIOVANI CAMPBELL DO, Ot Z80 .0 FAMILY HISTORY OF MALIGNANT NEOPLASM OF 01/06/2019 GIOVANI CAMPBELL DO, Ot Z82.49 FAMILY HX OF ISCHEM HEART DIS AND OTH DI 01/06/2019 GIOVANI CAMPBELL DO, Ot Z85.118 PERSONAL HISTORY OF MALIGNANT NEOPLASM O 01/06/2019 GIOVANI CAMPBELL DO, Ot Z87.01 PERSONAL HISTORY OF PNEUMONIA (RECURRENT 01/06/2019 GIOVANI CAMPBELL DO, Ot Z87.820 PERSONAL HISTORY OF TRAUMATIC BRAIN INJU 01/06/2019 GIOVANI CAMPBELL DO, Ot Z87.891 PERSONAL HISTORY OF NICOTINE DEPENDENCE 01/06/2019 GIOVANI CAMPBELL DO, Ot Z88 .8 ALLERGY STATUS TO [facility] DRUG/MEDS/BIOL SUB 01/06/2019 GIOVANI CAMPBELL DO, Ot Z96.652 PRESENCE OF LEFT ARTIFICIAL KNEE JOINT 01/06/2019 GIOVANI CAMPBELL DO, Ot Z99.81 DEPENDENCE ON SUPPLEMENTAL OXYGEN 01/08/2019 KRYSTIN DENT, KAYCE V Ot C34.2 MALIGNANT NEOPLASM OF MIDDLE LOBE, [facility] 01/09/2019 GIOVANI CAMPBELL DO, Ot D64 .9 ANEMIA, UNSPECIFIED 01/09/2019 GIOVANI CAMPBELL DO, Ot I10 ESSENTIAL (PRIMARY) HYPERTENSION 01/09/2019 GIOVANI CAMPBELL DO, Ot J44 .9 CHRONIC OBSTRUCTIVE PULMONARY DISEASE, U 01/09/2019 GIOVANI CAMPBELL DO, Ot K62 .5 HEMORRHAGE OF ANUS AND RECTUM 01/09/2019 GIOVANI CAMPBELL DO, Ot K92 .2 GASTROINTESTINAL HEMORRHAGE, UNSPECIFIED 01/09/2019 GIOVANI CAMPBELL DO, Ot Z80 .0 FAMILY HISTORY OF MALIGNANT NEOPLASM OF 01/09/2019 GIOVANI CAMPBELL DO, Ot Z82.49 FAMILY HX OF ISCHEM HEART DIS AND OTH DI 01/09/2019 GIOVANI CAMPBELL DO, Ot Z85.118 PERSONAL HISTORY OF MALIGNANT NEOPLASM O 01/09/2019 GIOVANI CAMPBELL DO, Ot Z87.01 PERSONAL HISTORY OF PNEUMONIA (RECURRENT 01/09/2019 GIOVANI CAMPBELL DO, Ot Z87.820 PERSONAL HISTORY OF TRAUMATIC BRAIN INJU 01/09/2019 GIOVANI CAMPBELL DO Ot Z87.891 PERSONAL HISTORY OF NICOTINE DEPENDENCE 01/09/2019 GIOVANI CAMPBELL DO Ot Z88 .8 ALLERGY STATUS TO [facility] DRUG/MEDS/BIOL SUB 01/09/2019 GIOVANI CAMPBELL DO Ot Z96.652 PRESENCE OF LEFT ARTIFICIAL KNEE JOINT 01/09/2019 GIOVANI CAMPBELL DO Ot Z99.81 DEPENDENCE ON SUPPLEMENTAL OXYGEN 01/10/2019 Bebeto Olivarez W 162.4 MALIGNANT NEOPLASM OF MIDDLE LOBE, BRONCHUS OR LUNG 01/10/2019 Bebeto Olivarez W 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 01/10/2019 Bebeto Olivarez W 285.1 ACUTE POSTHEMORRHAGIC ANEMIA 01/10/2019 Bebeto Olivarez W 296.20 MAJOR DEPRESSIVE DISORDER, SINGLE EPISODE, UNSPECIFIED DEGREE 01/10/2019 Bebeto Olivarez W 401.0 MALIGNANT ESSENTIAL HYPERTENSION 01/10/2019 Bebeto Olivaerz W 491.20 OBSTRUCTIVE CHRONIC BRONCHITIS, WITHOUT EXACERBATION 01/10/2019 Bebeto Olivarez W 530.81 ESOPHAGEAL REFLUX 01/10/2019 Bebeto Olivarez W 552.3 DIAPHRAGMATIC HERNIA WITH OBSTRUCTION 01/10/2019 Bebeto Olivarez W 562.12 DIVERTICULOSIS OF COLON WITH HEMORRHAGE 01/10/2019 Bebeto Olivarez W 569.3 HEMORRHAGE OF RECTUM AND ANUS 01/10/2019 Bebeto Olivarez W C34.2 MALIGNANT NEOPLASM OF MIDDLE LOBE, BRONCHUS OR LUNG 01/10/2019 Bebeto Olivarez W D12.8 BENIGN NEOPLASM OF RECTUM 01/10/2019 Bebeto Olivarez W D62 ACUTE POSTHEMORRHAGIC ANEMIA 01/10/2019 Bebeto Olivarez W F32.9 MAJOR DEPRESSIVE DISORDER, SINGLE EPISODE, UNSPECIFIED 01/10/2019 Bebeto Olivarez W I10 ESSENTIAL (PRIMARY) HYPERTENSION 01/10/2019 Bebeto Olivarez W J44.9 CHRONIC OBSTRUCTIVE PULMONARY DISEASE, UNSPECIFIED 01/10/2019 Bebeto Olivarez W K21.9 GASTRO- ESOPHAGEAL REFLUX DISEASE WITHOUT ESOPHAGITIS 01/10/2019 Bebeto Olivarez W K44.9 DIAPHRAGMATIC HERNIA WITHOUT OBSTRUCTION OR GANGRENE 01/10/2019 Bebeto Olivraez W K57.30 DVRTCLOS OF LG INT W/O PERFORATION OR ABSCESS W/O BLEEDING 01/10/2019 Bebeto Olivarez W K62.5 HEMORRHAGE OF ANUS AND RECTUM 01/31/2019 KRYSTIN DENT, KAYCE V Ot C34.2 MALIGNANT NEOPLASM OF MIDDLE LOBE, [facility] 02/25/2019 JUANIS MCADAMS BEBETO Ot D64.9 ANEMIA, UNSPECIFIED 02/25/2019 JUANIS MCADAMS BEBETO Ot F32.9 MAJOR DEPRESSIVE DISORDER, SINGLE EPISOD 02/25/2019 JUANIS MCADAMS BEBETO Ot G62.9 POLYNEUROPATHY, UNSPECIFIED 02/25/2019 JUANIS MCADAMS BEBETO Ot G89.29 OTHER CHRONIC PAIN 02/25/2019 JUANIS MCADAMS BEBETO Ot I10 ESSENTIAL (PRIMARY) HYPERTENSION 02/25/2019 BABS OLIVAREZ DOI Ot J18.9 PNEUMONIA, UNSPECIFIED ORGANISM 02/25/2019 BABS OLIVAREZ DOI Ot J44.0 CHR OBSTRUCTIVE PULMON DISEASE WITH (ACU 02/25/2019 JUANIS MCADAMS BEBETO Ot J96.90 RESPIRATORY FAILURE, UNSP, UNSP W HYPOXI 02/25/2019 JUANIS MCADAMS BEBETO Ot K21.9 GASTRO-ESOPHAGEAL REFLUX DISEASE WITHOUT 02/25/2019 JUANIS MCADAMS BEBETO Ot M54.9 DORSALGIA, UNSPECIFIED 02/25/2019 JUANIS MCADAMS BEBETO Ot R32 UNSPECIFIED URINARY INCONTINENCE 02/25/2019 JUANIS MCADAMS BEBETO Ot Z85.11 8 PERSONAL HISTORY OF MALIGNANT NEOPLASM O 02/25/2019 JUANIS MCADAMS BEBETO Ot Z87.01 PERSONAL HISTORY OF PNEUMONIA (RECURRENT 02/25/2019 JUANIS CMADAMS BEBETO Ot Z87.82 0 PERSONAL HISTORY OF TRAUMATIC BRAIN INJU 02/25/2019 JUANIS MCADAMS BEBETO Ot Z87.89 1 PERSONAL HISTORY OF NICOTINE DEPENDENCE 02/25/2019 JUANIS MCADAMS BEBETO Ot Z92.21 PERSONAL HISTORY OF ANTINEOPLASTIC CHEMO 02/25/2019 ABBS OLIVAREZ DOI Ot Z96.65 2 PRESENCE OF LEFT ARTIFICIAL KNEE JOINT 02/25/2019 JUANIS MCADAMS BEBETO Ot Z99.81 DEPENDENCE ON SUPPLEMENTAL OXYGEN 03/05/2019 JUANIS MCADAMS BEBETO Ot B35.1 TINEA UNGUIUM 03/05/2019 JUANIS MCADAMS BEBETO Ot C34.2 MALIGNANT NEOPLASM OF MIDDLE LOBE, [facility] 03/05/2019 JUANIS MCADAMS BEBETO Ot F32.9 MAJOR DEPRESSIVE DISORDER, SINGLE EPISOD 03/05/2019 JUANIS MCADAMS BEBETO Ot G62.0 DRUG-INDUCED POLYNEUROPATHY 03/05/2019 JUANIS MCADAMS BEBETO Ot I10 ESSENTIAL (PRIMARY) HYPERTENSION 03/05/2019 JUANIS MCADAMS BEBETO Ot J44.9 CHRONIC OBSTRUCTIVE PULMONARY DISEASE, U 03/05/2019 JUANIS MCADAMS BEBETO Ot K21.9 GASTRO-ESOPHAGEAL REFLUX DISEASE WITHOUT 03/05/2019 OLIVAREZ DO BEBETO Ot M20.41 OTHER HAMMER TOE(S) (ACQUIRED), RIGHT FO 03/05/2019 OLIVAREZ DO BEBETO Ot M20.42 OTHER HAMMER TOE(S) (ACQUIRED), LEFT THERESA 03/05/2019 JUANIS DO BEBETO Ot R32 UNSPECIFIED URINARY INCONTINENCE 03/05/2019 OLIVAREZ DO BEBETO Ot R53.1 WEAKNESS 03/05/2019 JUANIS MCADAMS BEBETO Ot R53.81 OTHER MALAISE 03/05/2019 JUANIS MCADAMS BEBETO Ot T45.1X 5A ADVERSE EFFECT OF ANTINEOPLASTIC AND IMM 03/05/2019 JUANIS MCADAMS BEBETO Ot Z87.01 PERSONAL HISTORY OF PNEUMONIA (RECURRENT 03/05/2019 JUANIS MCADAMS BEBETO Ot Z87.82 0 PERSONAL HISTORY OF TRAUMATIC BRAIN INJU 03/05/2019 JUANIS MCADAMS BEBETO Ot Z87.89 1 PERSONAL HISTORY OF NICOTINE DEPENDENCE 03/05/2019 JUANIS MCADAMS BEBETO Ot Z99.81 DEPENDENCE ON SUPPLEMENTAL OXYGEN 03/07/2019 KRYSTIN DENT, KAYCE V Ot C34.2 MALIGNANT NEOPLASM OF MIDDLE LOBE, [facility] 03/07/2019 KRYSTIN DENT, KAYCE V Ot C34.2 MALIGNANT NEOPLASM OF MIDDLE LOBE, [facility] 03/11/2019 KRYSTIN DENT, KAYCE V Ot C34.2 MALIGNANT NEOPLASM OF MIDDLE LOBE, [facility] 03/11/2019 KRYSTIN DENT, KAYCE V Ot J98.4 OTHER DISORDERS OF LUNG 03/11/2019 KRYSTIN DENT, KAYCE V Ot R91.8 OTHER NONSPECIFIC ABNORMAL FINDING OF [place] 05/27/2019 KRYSTIN DENT, KAYCE V Ot C34.2 MALIGNANT NEOPLASM OF MIDDLE LOBE, [facility] 05/28/2019 KRYSTIN DENT, KAYCE V Ot C34.2 MALIGNANT NEOPLASM OF MIDDLE LOBE, [facility] 05/29/2019 CARLA MCCARTNEY MD Ot G62. 9 POLYNEUROPATHY, UNSPECIFIED 05/29/2019 CARLA MCCARTNEY MD Ot I10 ESSENTIAL (PRIMARY) HYPERTENSION 05/29/2019 CARLA MCCARTNEY MD Ot J20. 9 ACUTE BRONCHITIS, UNSPECIFIED 05/29/2019 CARLA MCCARTNEY MD Ot R11. 2 NAUSEA WITH VOMITING, UNSPECIFIED 05/29/2019 CARLA MCCARTNEY MD Ot Z80. 0 FAMILY HISTORY OF MALIGNANT NEOPLASM OF 05/29/2019 CARLA MCCARTNEY MD Ot Z82. 49 FAMILY HX OF ISCHEM HEART DIS AND OTH DI 05/29/2019 CARLA MCCARTNEY MD Ot Z85.118 PERSONAL HISTORY OF MALIGNANT NEOPLASM O 05/29/2019 CARLA MCCARTNEY MD Ot Z87. 09 PERSONAL HISTORY OF OTHER DISEASES OF TH 05/29/2019 CARLA MCCARTNEY MD Ot Z87.820 PERSONAL HISTORY OF TRAUMATIC BRAIN INJU 05/29/2019 CARLA MCCARTNEY MD Ot Z87.891 PERSONAL HISTORY OF NICOTINE DEPENDENCE 05/29/2019 CARLA MCCARTNEY MD Ot Z88. 8 ALLERGY STATUS TO OT DRUG/MEDS/BIOL SUB 05/29/2019 CARLA MCCARTNEY MD Ot Z96.652 PRESENCE OF LEFT ARTIFICIAL KNEE JOINT 06/17/2019 KRYSTIN DENT, KAYCE V Ot C34.2 MALIGNANT NEOPLASM OF MIDDLE LOBE, [facility] 08/04/2019 KRYSTIN DENT, KAYCE V Ot C34.2 MALIGNANT NEOPLASM OF MIDDLE LOBE, [facility] 08/05/2019 KRYSTIN DENT, KAYCE V Ot C34.2 MALIGNANT NEOPLASM OF MIDDLE LOBE, [facility] 08/05/2019 KRYSTIN DENT, KAYCE V Ot C34.2 MALIGNANT NEOPLASM OF MIDDLE LOBE, [facility] 08/26/2019 KRYSTIN DENT, KAYCE V Ot C34.2 MALIGNANT NEOPLASM OF MIDDLE LOBE, [facility] Procedures Code Description Performed By Per formed On [id number] DR BUCHANAN OF LEFT LOWER LUNG LOBE, ENDO, 06/19/2018 [id number] EX TRACTION OF LEFT LOWER LUNG LOBE, ENDO 06/19/2018 Results Test Result Range Blood lactic acid measurement (moles/vol ume) - 06/14/18 20:35 Blood lactic acid measurement (moles/volume) 1.00 mmol/L 0.50-2.00 Bacterial blood culture - 06/14/18 20:35 Bacterial blood culture NG NRG Complete blood count (CBC) with automate d white blood cell (WBC) differential - 06/14/18 22:20 Blood leukocytes automated count (number/volume) 23.8 10*3/uL 4.3-11.0 Blood erythrocytes automated count (number/volume) 4.25 10*6/uL 4.35-5.85 Venous blood hemoglobin measurement (mass/volume) 12.1 g/dL 13.3-17.7 Blood hematocrit (volume fraction) 38 % 40-54 Automated erythrocyte mean corpuscular volume 89 [ foz_us] 80-99 Automated erythrocyte mean corpuscular h emoglobin (mass per erythrocyte) 28 pg 25-34 Automated erythrocyte mean corpuscular h emoglobin concentration measurement (mass/volume) 32 g/dL 32-36 Automated erythrocyte distribution width ratio 14. 6 % 10.0- 14.5 Automated blood platelet count [...] 10*3 1.0-4.0 Blood monocytes automated count (number/volume) 0. 8 10*3 0.0-1.0 Automated eosinophil count 0.0 10*3/uL 0 .0-0.3 Automated blood basophil count (count/volume) 0.0 10*3/uL 0.0-0.1 Blood manual differential performed dete ction - 06/14/18 22:20 Blood monocytes/100 leukocytes 4 [...] 5-14 Serum or plasma urea nitrogen measurement (mass/volume ) 12 mg/dL 7-18 Serum or plasma creatinine measurement (mass/volume) 0.77 mg/dL 0.60-1.30 Serum or plasma urea nitrogen/creatinine mass ratio 16 NRG Serum or plasma creatinine measurement w ith calculation of estimated glomerular filtration rate > NRG Serum or plasma glucose measurement (mass/volume) 128 mg/dL 70-105 Serum or plasma calcium measurement (mass/volume) 8.4 mg/dL 8.5-10.1 Serum or plasma total bilirubin measurement (mass/volu me) 0.6 mg/dL 0.1-1.0 Serum or plasma alkaline phosphatase atson surement (enzymatic activity/volume) 146 U/L 40-136 Serum or plasma aspartate aminotransfera se measurement (enzymatic activity/volume) 68 U/L 5-34 Serum or plasma alanine aminotransferase measurement (enzymatic activity/volume) 82 U/L 0-55 Serum or plasma protein measurement (mass/volume) 7.0 g/dL 6.4-8.2 Serum or plasma albumin measurement (mass/volume) 3.8 g/dL 3.2-4.5 CALCIUM CORRECTED 8.6 mg/dL 8.5-10.1 Lipase - 06/14/18 22:20 Lipase 7 U/L 8-78 Magnesium - 06/14/18 22:20 Magnesium 1.9 mg/dL 1.8-2.4 Influenza virus A and B antigen detectio n - 06/14/18 22:40 FLU RESULT NEGATIVE FOR INFLUENZA A AND B ANTIGENS BY IA NRG Complete urinalysis with reflex to cultu re - 06/14/18 23:25 Urine color determination YELLOW NRG Urine clarity determination CLEAR NR G Urine pH measurement by test strip 7.0 5-9 Specific gravity of urine by test strip 1.015 1.016-1.022 Urine protein assay by test strip, semi-quantitative NEGATIVE NEGATIVE Urine glucose detection by automated test strip NE GATIVE NEGATIVE Erythrocytes detection in urine sediment by light micr oscopy NEGATIVE NEGATIVE Urine ketones detection by automated test strip 1+ NEGATIVE Urine nitrite detection by test strip NEGATIVE NEGATIVE Urine total bilirubin detection by test strip NEGA TIVE NEGATIVE Urine urobilinogen measurement by automated test strip (mass/volume) 0.2 mg/dL NORMAL Urine leukocyte esterase detection by dipstick NEG ATIVE NEGATIVE Automated urine sediment erythrocyte cou nt by microscopy (number/high power field) [HPF] NRG Automated urine sediment leukocyte count by microscopy (number/high power field) [HPF] NRG Bacteria detection in urine sediment by light microsco py FEW NRG Squamous epithelial cells detection in u rine sediment by light microscopy 2-5 NRG Crystals detection in urine sediment by light microsco py NONE NRG Casts detection in urine sediment by light microscopy NONE NRG Mucus detection in urine sediment by light microscopy NEGATIVE NRG Complete urinalysis with reflex to culture YES NRG Bacterial urine culture - 06/14/18 23:25 Bacterial urine culture SEE COMMEN NRG COLONY COUNT . NRG Bacterial blood culture - 06/15/18 00:05 Bacterial blood culture NG NRG Complete blood count (CBC) with automate d white blood cell (WBC) differential - 06/15/18 06:15 Blood leukocytes automated count (number/volume) 17.0 10*3/uL 4.3-11.0 Blood erythrocytes automated count (number/volume) 3.76 10*6/uL 4.35-5.85 Venous blood hemoglobin measurement (mass/volume) 10.9 g/dL 13.3-17.7 Blood hematocrit (volume fraction) 34 % 40-54 Automated erythrocyte mean corpuscular volume 89 [ foz_us] 80-99 Automated erythrocyte mean corpuscular h emoglobin (mass per erythrocyte) 29 pg 25-34 Automated erythrocyte mean corpuscular h emoglobin concentration measurement (mass/volume) 32 g/dL 32-36 Automated erythrocyte distribution width ratio 15. 1 % 10.0- 14.5 Automated blood platelet count [...] 10*3 1.0-4.0 Blood monocytes automated count (number/volume) 0. 8 10*3 0.0-1.0 Automated eosinophil count 0.1 10*3/uL 0 .0-0.3 Automated blood basophil count (count/volume) 0.0 10*3/uL 0.0-0.1 Whole blood basic metabolic panel - 05/25 07/09 06:15 Serum or plasma sodium measurement (moles/volume) 143 mmol/L 135-145 Serum or plasma potassium measurement (moles/volume) 3.0 mmol/L 3.6-5.0 Serum or plasma chloride measurement (moles/volume) 107 mmol/L 98-107 Carbon dioxide 27 mmol/L 21-32 Serum or plasma anion gap determination (moles/volume) 9 mmol/L 5-14 Serum or plasma urea nitrogen measurement (mass/volume ) 14 mg/dL 7-18 Serum or plasma creatinine measurement (mass/volume) 0.69 mg/dL 0.60-1.30 Serum or plasma urea nitrogen/creatinine mass ratio 20 NRG Serum or plasma creatinine measurement w ith calculation of estimated glomerular filtration rate > NRG Serum or plasma glucose measurement (mass/volume) 102 mg/dL 70-105 Serum or plasma calcium measurement (mass/volume) 8.9 mg/dL 8.5-10.1 Complete blood count (CBC) with automate d white blood cell (WBC) differential - 06/16/18 06:35 Blood leukocytes automated count (number/volume) 9.8 10*3/uL 4.3-11.0 Blood erythrocytes automated count (number/volume) 3.51 10*6/uL 4.35-5.85 Venous blood hemoglobin measurement (mass/volume) 10.0 g/dL 13.3-17.7 Blood hematocrit (volume fraction) 32 % 40-54 Automated erythrocyte mean corpuscular volume 90 [ foz_us] 80-99 Automated erythrocyte mean corpuscular h emoglobin (mass per erythrocyte) 29 pg 25-34 Automated erythrocyte mean corpuscular h emoglobin concentration measurement (mass/volume) 32 g/dL 32-36 Automated erythrocyte distribution width ratio 14. 9 % 10.0- 14.5 Automated blood platelet count [...] 10*3 1.0-4.0 Blood monocytes automated count (number/volume) 0. 6 10*3 0.0-1.0 Automated eosinophil count 0.2 10*3/uL 0 .0-0.3 Automated blood basophil count (count/volume) 0.0 10*3/uL 0.0-0.1 Comprehensive metabolic panel - 06/16/18 06:35 Serum or plasma sodium measurement (moles/volume) 139 mmol/L 135-145 Serum or plasma potassium measurement (moles/volume) 3.2 mmol/L 3.6-5.0 Serum or plasma chloride measurement (moles/volume) 105 mmol/L 98-107 Carbon dioxide 27 mmol/L 21-32 Serum or plasma anion gap determination (moles/volume) 7 mmol/L 5-14 Serum or plasma urea nitrogen measurement (mass/volume ) 11 mg/dL 7-18 Serum or plasma creatinine measurement (mass/volume) 0.70 mg/dL 0.60-1.30 Serum or plasma urea nitrogen/creatinine mass ratio 16 NRG Serum or plasma creatinine measurement w ith calculation of estimated glomerular filtration rate > NRG Serum or plasma glucose measurement (mass/volume) 101 mg/dL 70-105 Serum or plasma calcium measurement (mass/volume) 8.8 mg/dL 8.5-10.1 Serum or plasma total bilirubin measurement (mass/volu me) 0.7 mg/dL 0.1-1.0 Serum or plasma alkaline phosphatase aston surement (enzymatic activity/volume) 141 U/L 40-136 Serum or plasma aspartate aminotransfera se measurement (enzymatic activity/volume) 48 U/L 5-34 Serum or plasma alanine aminotransferase measurement (enzymatic activity/volume) 61 U/L 0-55 Serum or plasma protein measurement (mass/volume) 5.9 g/dL 6.4-8.2 Serum or plasma albumin measurement (mass/volume) 3.1 g/dL 3.2-4.5 CALCIUM CORRECTED 9.5 mg/dL 8.5-10.1 Magnesium - 06/16/18 06:35 Magnesium 2.3 mg/dL 1.8-2.4 Complete blood count (CBC) with automate d white blood cell (WBC) differential - 06/17/18 05:36 Blood leukocytes automated count (number/volume) 8.0 10*3/uL 4.3-11.0 Blood erythrocytes automated count (number/volume) 3.55 10*6/uL 4.35-5.85 Venous blood hemoglobin measurement (mass/volume) 10.4 g/dL 13.3-17.7 Blood hematocrit (volume fraction) 32 % 40-54 Automated erythrocyte mean corpuscular volume 90 [ foz_us] 80-99 Automated erythrocyte mean corpuscular h emoglobin (mass per erythrocyte) 29 pg 25-34 Automated erythrocyte mean corpuscular h emoglobin concentration measurement (mass/volume) 33 g/dL 32-36 Automated erythrocyte distribution width ratio 14. 9 % 10.0- 14.5 Automated blood platelet count [...] 10*3 1.0-4.0 Blood monocytes automated count (number/volume) 0. 5 10*3 0.0-1.0 Automated eosinophil count 0.6 10*3/uL 0 .0-0.3 Automated blood basophil count (count/volume) 0.0 10*3/uL 0.0-0.1 Comprehensive metabolic panel - 06/17/18 05:36 Serum or plasma sodium measurement (moles/volume) 141 mmol/L 135-145 Serum or plasma potassium measurement (moles/volume) 3.2 mmol/L 3.6-5.0 Serum or plasma chloride measurement (moles/volume) 106 mmol/L 98-107 Carbon dioxide 27 mmol/L 21-32 Serum or plasma anion gap determination (moles/volume) 8 mmol/L 5-14 Serum or plasma urea nitrogen measurement (mass/volume ) 8 mg/dL 7-18 Serum or plasma creatinine measurement (mass/volume) 0.68 mg/dL 0.60-1.30 Serum or plasma urea nitrogen/creatinine mass ratio 12 NRG Serum or plasma creatinine measurement w ith calculation of estimated glomerular filtration rate > NRG Serum or plasma glucose measurement (mass/volume) 91 mg/dL 70-105 Serum or plasma calcium measurement (mass/volume) 9.1 mg/dL 8.5-10.1 Serum or plasma total bilirubin measurement (mass/volu me) 0.6 mg/dL 0.1-1.0 Serum or plasma alkaline phosphatase aston surement (enzymatic activity/volume) 136 U/L 40-136 Serum or plasma aspartate aminotransfera se measurement (enzymatic activity/volume) 31 U/L 5-34 Serum or plasma alanine aminotransferase measurement (enzymatic activity/volume) 47 U/L 0-55 Serum or plasma protein measurement (mass/volume) 6.1 g/dL 6.4-8.2 Serum or plasma albumin measurement (mass/volume) 3.1 g/dL 3.2-4.5 CALCIUM CORRECTED 9.8 mg/dL 8.5-10.1 Serum or plasma lithium measurement (mol es/volume) - 06/17/18 05:36 BNP level 283.9 pg/mL <100.0 Methicillin resistant Staphylococcus aur eus (MRSA) screening culture - 06/17/18 13:00 Methicillin resistant Staphylococcus aureus (MRSA) scr eening culture NEG NRG Vancomycin trough - 06/17/18 13:15 Vancomycin trough 11.0 ug/mL 10.0-20.0 Arterial blood gas measurement - 9 16:28 Blood pCO2 43 mm[Hg] 35-45 Blood pO2 73 mm[Hg] 79-93 Arterial blood bicarbonate measurement (moles/volume) 28 mmol/L 23-27 Arterial blood base excess by calculation 3.4 mmol /L -2.5-2.5 Arterial blood oxygen saturation measurement 96 % 94-100 * Inhaled oxygen flow rate 4 L NRG Arterial blood pH measurement with patient temperature correction 7.42 7.37-7.43 Arterial blood carbon dioxide, total measurement (mole s/volume) 28.8 mmol/L 21.0-31.0 Body site LEFT RADIAL NRG Assessment of wrist artery patency prior to arterial p uncture POSITIVE NRG Setting of ventilation mode NO NR G Measurement of body temperature 99.1 NRG Automated blood complete blood count (he mogram) panel - 06/18/18 09:09 Blood leukocytes automated count (number/volume) 6.2 10*3/uL 4.3-11.0 Blood erythrocytes automated count (number/volume) 3.83 10*6/uL 4.35-5.85 Venous blood hemoglobin measurement (mass/volume) 10.9 g/dL 13.3-17.7 Blood hematocrit (volume fraction) 34 % 40-54 Automated erythrocyte mean corpuscular volume 88 [ foz_us] 80-99 Automated erythrocyte mean corpuscular h emoglobin (mass per erythrocyte) 28 pg 25-34 Automated erythrocyte mean corpuscular h emoglobin concentration measurement (mass/volume) 32 g/dL 32-36 Automated erythrocyte distribution width ratio 14. 8 % 10.0- 14.5 Automated blood platelet count (count/volume) 254 10*3/uL 130-400 Automated blood platelet mean volume measurement 10.2 [foz_us] 7.4-10.4 Whole blood basic metabolic panel - 05/25 10/09 09:09 Serum or plasma sodium measurement (moles/volume) 141 mmol/L 135-145 Serum or plasma potassium measurement (moles/volume) 3.3 mmol/L 3.6-5.0 Serum or plasma chloride measurement (moles/volume) 105 mmol/L 98-107 Carbon dioxide 28 mmol/L 21-32 Serum or plasma anion gap determination (moles/volume) 8 mmol/L 5-14 Serum or plasma urea nitrogen measurement (mass/volume ) 8 mg/dL 7-18 Serum or plasma creatinine measurement (mass/volume) 0.69 mg/dL 0.60-1.30 Serum or plasma urea nitrogen/creatinine mass ratio 12 NRG Serum or plasma creatinine measurement w ith calculation of estimated glomerular filtration rate > NRG Serum or plasma glucose measurement (mass/volume) 102 mg/dL 70-105 Serum or plasma calcium measurement (mass/volume) 8.9 mg/dL 8.5-10.1 Serum or plasma phosphate measurement (m ass/volume) - 06/18/18 09:09 Serum or plasma phosphate measurement (mass/volume) 3.5 mg/dL 2.3-4.7 Magnesium - 06/18/18 09:09 Magnesium 1.7 mg/dL 1.8-2.4 Serum or plasma lithium measurement (mol es/volume) - 06/18/18 09:09 BNP level 209.2 pg/mL <100.0 Complete blood count (CBC) with automate d white blood cell (WBC) differential - 06/19/18 03:45 Blood leukocytes automated count (number/volume) 5.1 10*3/uL 4.3-11.0 Blood erythrocytes automated count (number/volume) 3.69 10*6/uL 4.35-5.85 Venous blood hemoglobin measurement (mass/volume) 10.6 g/dL 13.3-17.7 Blood hematocrit (volume fraction) 33 % 40-54 Automated erythrocyte mean corpuscular volume 89 [ foz_us] 80-99 Automated erythrocyte mean corpuscular h emoglobin (mass per erythrocyte) 29 pg 25-34 Automated erythrocyte mean corpuscular h emoglobin concentration measurement (mass/volume) 32 g/dL 32-36 Automated erythrocyte distribution width ratio 14. 8 % 10.0- 14.5 Automated blood platelet count [...] 10*3 1.0-4.0 Blood monocytes automated count (number/volume) 0. 4 10*3 0.0-1.0 Automated eosinophil count 0.6 10*3/uL 0 .0-0.3 Automated blood basophil count (count/volume) 0.0 10*3/uL 0.0-0.1 Serum or plasma phosphate measurement (m ass/volume) - 06/19/18 03:45 Serum or plasma phosphate measurement (mass/volume) 3.5 mg/dL 2.3-4.7 Whole blood basic metabolic panel - 05/25 11/08 03:45 Serum or plasma sodium measurement (moles/volume) 141 mmol/L 135-145 Serum or plasma potassium measurement (moles/volume) 3.1 mmol/L 3.6-5.0 Serum or plasma chloride measurement (moles/volume) 105 mmol/L 98-107 Carbon dioxide 25 mmol/L 21-32 Serum or plasma anion gap determination (moles/volume) 11 mmol/L 5-14 Serum or plasma urea nitrogen measurement (mass/volume ) 9 mg/dL 7-18 Serum or plasma creatinine measurement (mass/volume) 0.69 mg/dL 0.60-1.30 Serum or plasma urea nitrogen/creatinine mass ratio 13 NRG Serum or plasma creatinine measurement w ith calculation of estimated glomerular filtration rate > NRG Serum or plasma glucose measurement (mass/volume) 98 mg/dL 70-105 Serum or plasma calcium measurement (mass/volume) 9.1 mg/dL 8.5-10.1 Magnesium - 06/19/18 03:45 Magnesium 1.8 mg/dL 1.8-2.4 Sputum Gram stain - 06/19/18 07:45 Sputum Gram stain 06-20-2018, 604 NRG Bacteria identification in bronchial spe cimen by aerobe culture - 06/19/18 07:45 Bacteria identification in bronchial specimen by aerob e culture NG NRG Mycobacterium species detection by organ ism specific culture - 06/19/18 07:45 QUANTITY OF GROWTH . NRG Mycobacterium species detection by organism specific c ulture SEE COMMEN NRG C FUNGUS SPUTUM FLUID TISSUE - 06/19/18 07:45 C FUNGUS SPUTUM FLUID TISSUE NG N RG Sputum Gram stain - 06/19/18 07:46 Sputum Gram stain TNP NRG Bacteria identification in bronchial spe cimen by aerobe culture - 06/19/18 07:46 Bacteria identification in bronchial specimen by aerob e culture NG NRG C FUNGUS SPUTUM FLUID TISSUE - 06/19/18 07:46 C FUNGUS SPUTUM FLUID TISSUE NG N RG Automated blood complete blood count (he mogram) panel - 06/20/18 04:30 Blood leukocytes automated count (number/volume) 5.8 10*3/uL 4.3-11.0 Blood erythrocytes automated count (number/volume) 3.69 10*6/uL 4.35-5.85 Venous blood hemoglobin measurement (mass/volume) 10.7 g/dL 13.3-17.7 Blood hematocrit (volume fraction) 33 % 40-54 Automated erythrocyte mean corpuscular volume 89 [ foz_us] 80-99 Automated erythrocyte mean corpuscular h emoglobin (mass per erythrocyte) 29 pg 25-34 Automated erythrocyte mean corpuscular h emoglobin concentration measurement (mass/volume) 33 g/dL 32-36 Automated erythrocyte distribution width ratio 14. 9 % 10.0- 14.5 Automated blood platelet count (count/volume) 279 10*3/uL 130-400 Automated blood platelet mean volume measurement 10.1 [foz_us] 7.4-10.4 Whole blood basic metabolic panel - 05/25 12/09 04:30 Serum or plasma sodium measurement (moles/volume) 137 mmol/L 135-145 Serum or plasma potassium measurement (moles/volume) 3.5 mmol/L 3.6-5.0 Serum or plasma chloride measurement (moles/volume) 104 mmol/L 98-107 Carbon dioxide 24 mmol/L 21-32 Serum or plasma anion gap determination (moles/volume) 9 mmol/L 5-14 Serum or plasma urea nitrogen measurement (mass/volume ) 11 mg/dL 7-18 Serum or plasma creatinine measurement (mass/volume) 0.76 mg/dL 0.60-1.30 Serum or plasma urea nitrogen/creatinine mass ratio 14 NRG Serum or plasma creatinine measurement w ith calculation of estimated glomerular filtration rate > NRG Serum or plasma glucose measurement (mass/volume) 95 mg/dL 70-105 Serum or plasma calcium measurement (mass/volume) 9.4 mg/dL 8.5-10.1 Serum or plasma phosphate measurement (m ass/volume) - 06/20/18 04:30 Serum or plasma phosphate measurement (mass/volume) 3.4 mg/dL 2.3-4.7 Magnesium - 06/20/18 04:30 Magnesium 1.8 mg/dL 1.8-2.4 CMP - 07/16/18 15:15 GLUCOSE 93 mg/dL 65-99 UREA NITROGEN (BUN) 16 mg/dL 7-25 CREATININE 0.76 mg/dL 0.70-1.18 eGFR NON-AFR. NIGERIAN 87 mL/min/1.73m2 > OR = 60 eGFR 101 mL/min/1.73m2 > OR = 60 BUN/CREATININE RATIO NOT APPLICABLE (calc) 6-22 SODIUM 139 mmol/L 135-146 POTASSIUM 4.0 mmol/L 3.5-5.3 CHLORIDE 103 mmol/L 98-110 CARBON DIOXIDE 31 mmol/L 20-32 CALCIUM 9.3 mg/dL 8.6-10.3 PROTEIN, TOTAL 6.6 g/dL 6.1-8.1 ALBUMIN 4.0 g/dL 3.6-5.1 GLOBULIN 2.6 g/dL (calc) 1.9-3.7 ALBUMIN/GLOBULIN RATIO 1.5 (calc) 1.0-2. 5 BILIRUBIN, TOTAL 0.4 mg/dL 0.2-1.2 ALKALINE PHOSPHATASE 179 U/L 40-115 AST 69 U/L 10-35 ALT 108 U/L 9-46 CBC w/MANUAL DIFF - 07/16/18 15:15 WHITE BLOOD CELL COUNT 6.3 Thousand/uL 3 .8-10.8 RED BLOOD CELL COUNT 4.36 Million/uL 4.2 0-5.80 HEMOGLOBIN 12.7 g/dL 13.2-17.1 HEMATOCRIT 38.3 % 38.5-50.0 MCV 87.8 fL 80.0-100.0 MCH 29.1 pg 27.0-33.0 MCHC 33.2 g/dL 32.0-36.0 RDW 12.6 % 11.0-15.0 PLATELET COUNT 216 Thousand/uL 140-400 MPV 11.2 fL 7.5-12.5 ABSOLUTE NEUTROPHILS 1575 cells/uL 1500- 7800 ABSOLUTE MONOCYTES 441 cells/uL 200-950 ABSOLUTE EOSINOPHILS 819 cells/uL 15-500 ABSOLUTE BASOPHILS 63 cells/uL 0-200 NEUTROPHILS 25.0 % NRG LYMPHOCYTES 50.0 % NRG MONOCYTES 7.0 % NRG EOSINOPHILS 13.0 % NRG BASOPHILS 1.0 % NRG ABSOLUTE BAND NEUTROPHILS 252 cells/uL 0 -750 ABSOLUTE LYMPHOCYTES 3150 cells/uL 850-3 900 BAND NEUTROPHILS 4.0 % NRG PLATELET ESTIMATION ADEQUATE ADEQUATE COMMENT(S) NRG CEA - 07/16/18 15:15 CEA 7.8 ng/mL See Note: Complete blood count (CBC) with automate d white blood cell (WBC) differential - 09/06/18 22:40 Blood leukocytes automated count (number/volume) 14.0 10*3/uL 4.3-11.0 Blood erythrocytes automated count (number/volume) 3.91 10*6/uL 4.35-5.85 Venous blood hemoglobin measurement (mass/volume) 11.4 g/dL 13.3-17.7 Blood hematocrit (volume fraction) 35 % 40-54 Automated erythrocyte mean corpuscular volume 88 [ foz_us] 80-99 Automated erythrocyte mean corpuscular h emoglobin (mass per erythrocyte) 29 pg 25-34 Automated erythrocyte mean corpuscular h emoglobin concentration measurement (mass/volume) 33 g/dL 32-36 Automated erythrocyte distribution width ratio 13. 6 % 10.0- 14.5 Automated blood platelet count [...] 10*3 1.0-4.0 Blood monocytes automated count (number/volume) 0. 8 10*3 0.0-1.0 Automated eosinophil count 0.1 10*3/uL 0 .0-0.3 Automated blood basophil count (count/volume) 0.0 10*3/uL 0.0-0.1 Blood manual differential performed dete ction - 09/06/18 22:40 Blood monocytes/100 leukocytes 6 [...] PT panel in platelet poor plasma by coag ulation assay - 09/06/18 22:40 Prothrombin time (PT) in platelet poor plasma by coagu lation assay 14.4 s 12.2-14.7 INR in platelet poor plasma or blood by coagulation as say 1.1 0.8-1.4 Activated partial thromboplastin time (a PTT) in platelet poor plasma bycoagulation assay - 09/06/18 22:40 Activated partial thromboplastin time (a PTT) in platelet poor plasma bycoagulation assay 36 s 24-35 Fibrin D-dimer FEU measurement in platel et poor plasma (mass/volume) - 09/06/18 22:40 Fibrin [...] 5-14 Serum or plasma urea nitrogen measurement (mass/volume ) 13 mg/dL 7-18 Serum or plasma creatinine measurement (mass/volume) 0.69 mg/dL 0.60-1.30 Serum or plasma urea nitrogen/creatinine mass ratio 19 NRG Serum or plasma creatinine measurement w ith calculation of estimated glomerular filtration rate > NRG Serum or plasma glucose measurement (mass/volume) 107 mg/dL 70-105 Serum or plasma calcium measurement (mass/volume) 8.9 mg/dL 8.5-10.1 Serum or plasma total bilirubin measurement (mass/volu me) 1.0 mg/dL 0.1-1.0 Serum or plasma alkaline phosphatase aston surement (enzymatic activity/volume) 120 U/L 40-136 Serum or plasma aspartate aminotransfera se measurement (enzymatic activity/volume) 62 U/L 5-34 Serum or plasma alanine aminotransferase measurement (enzymatic activity/volume) 95 U/L 0-55 Serum or plasma protein measurement (mass/volume) 6.7 g/dL 6.4-8.2 Serum or plasma albumin measurement (mass/volume) 3.5 g/dL 3.2-4.5 CALCIUM CORRECTED 9.3 mg/dL 8.5-10.1 Serum or plasma troponin i.cardiac measu rement (mass/volume) - 09/06/18 22:40 Serum or plasma troponin i.cardiac measurement (mass/v olume) < ng/mL <0.028 Magnesium - 09/06/18 22:40 Magnesium 1.9 mg/dL 1.8-2.4 Blood lactic acid measurement (moles/vol ume) - 09/06/18 22:40 Blood lactic acid measurement (moles/volume) 0.77 mmol/L 0.50-2.00 Lipase - 09/06/18 22:40 Lipase < U/L 8-78 Bacterial blood culture - 09/06/18 22:40 QUANTITY OF GROWTH Isolated NRG Bacterial blood culture [id number] NRG Capillary blood glucose measurement by g lucometer (mass/volume) - 09/06/18 22:46 Capillary blood glucose measurement by glucometer (mas s/volume) 107 mg/dL 70-110 Bacterial blood culture - 09/07/18 00:22 Bacterial blood culture NG NRG Complete urinalysis with reflex to cultu re - 09/07/18 01:00 Urine color determination YELLOW NRG Urine clarity determination CLEAR NR G Urine pH measurement by test strip 8 5-9 Specific gravity of urine by test strip 1.010 1.016-1.022 Urine protein assay by test strip, semi-quantitative 1+ NEGATIVE Urine glucose detection by automated test strip NE GATIVE NEGATIVE Erythrocytes detection in urine sediment by light micr oscopy 1+ NEGATIVE Urine ketones detection by automated test strip 3+ NEGATIVE Urine nitrite detection by test strip NEGATIVE NEGATIVE Urine total bilirubin detection by test strip NEGA TIVE NEGATIVE Urine urobilinogen measurement by automated test strip (mass/volume) NORMAL NORMAL Urine leukocyte esterase detection by dipstick NEG ATIVE NEGATIVE Automated urine sediment erythrocyte cou nt by microscopy (number/high power field) [HPF] NRG Automated urine sediment leukocyte count by microscopy (number/high power field) [HPF] NRG Bacteria detection in urine sediment by light microsco py FEW NRG Crystals detection in urine sediment by light microsco py NONE NRG Casts detection in urine sediment by light microscopy NONE NRG Mucus detection in urine sediment by light microscopy NEGATIVE NRG Complete urinalysis with reflex to culture NO NRG Complete blood count (CBC) with automate d white blood cell (WBC) differential - 09/07/18 05:41 Blood leukocytes automated count (number/volume) 12.8 10*3/uL 4.3-11.0 Blood erythrocytes automated count (number/volume) 3.92 10*6/uL 4.35-5.85 Venous blood hemoglobin measurement (mass/volume) 11.2 g/dL 13.3-17.7 Blood hematocrit (volume fraction) 34 % 40-54 Automated erythrocyte mean corpuscular volume 88 [ foz_us] 80-99 Automated erythrocyte mean corpuscular h emoglobin (mass per erythrocyte) 29 pg 25-34 Automated erythrocyte mean corpuscular h emoglobin concentration measurement (mass/volume) 33 g/dL 32-36 Automated erythrocyte distribution width ratio 13. 6 % 10.0- 14.5 Automated blood platelet count [...] 10*3 1.0-4.0 Blood monocytes automated count (number/volume) 1. 0 10*3 0.0-1.0 Automated eosinophil count 0.1 10*3/uL 0 .0-0.3 Automated blood basophil count (count/volume) 0.0 10*3/uL 0.0-0.1 Whole blood basic metabolic panel - 08/21 12/09 05:41 Serum or plasma sodium measurement (moles/volume) 137 mmol/L 135-145 Serum or plasma potassium measurement (moles/volume) 2.5 mmol/L 3.6-5.0 Serum or plasma chloride measurement (moles/volume) 106 mmol/L 98-107 Carbon dioxide 19 mmol/L 21-32 Serum or plasma anion gap determination (moles/volume) 12 mmol/L 5-14 Serum or plasma urea nitrogen measurement (mass/volume ) 11 mg/dL 7-18 Serum or plasma creatinine measurement (mass/volume) 0.67 mg/dL 0.60-1.30 Serum or plasma urea nitrogen/creatinine mass ratio 16 NRG Serum or plasma creatinine measurement w ith calculation of estimated glomerular filtration rate > NRG Serum or plasma glucose measurement (mass/volume) 93 mg/dL 70-105 Serum or plasma calcium measurement (mass/volume) 8.9 mg/dL 8.5-10.1 Lipid 1996 panel - 09/07/18 05:41 Serum or plasma triglyceride measurement (mass/volume) 63 mg/dL <150 Serum or plasma cholesterol measurement (mass/volume) 131 mg/dL < 200 Serum or plasma cholesterol in HDL measurement (mass/v olume) 56 mg/dL 40-60 Cholesterol in LDL [mass/volume] in serum or plasma by direct assay 60 mg/dL 1-129 Serum or plasma cholesterol in VLDL measurement (mass/ volume) 13 mg/dL 5-40 Complete blood count (CBC) with automate d white blood cell (WBC) differential - 09/08/18 05:22 Blood leukocytes automated count (number/volume) 8.5 10*3/uL 4.3-11.0 Blood erythrocytes automated count (number/volume) 3.73 10*6/uL 4.35-5.85 Venous blood hemoglobin measurement (mass/volume) 11.0 g/dL 13.3-17.7 Blood hematocrit (volume fraction) 33 % 40-54 Automated erythrocyte mean corpuscular volume 88 [ foz_us] 80-99 Automated erythrocyte mean corpuscular h emoglobin (mass per erythrocyte) 29 pg 25-34 Automated erythrocyte mean corpuscular h emoglobin concentration measurement (mass/volume) 34 g/dL 32-36 Automated erythrocyte distribution width ratio 13. 9 % 10.0- 14.5 Automated blood platelet count [...] 10*3 1.0-4.0 Blood monocytes automated count (number/volume) 0. 7 10*3 0.0-1.0 Automated eosinophil count 0.3 10*3/uL 0 .0-0.3 Automated blood basophil count (count/volume) 0.0 10*3/uL 0.0-0.1 Comprehensive metabolic panel - 09/08/18 05:22 Serum or plasma sodium measurement (moles/volume) 138 mmol/L 135-145 Serum or plasma potassium measurement (moles/volume) 3.5 mmol/L 3.6-5.0 Serum or plasma chloride measurement (moles/volume) 110 mmol/L 98-107 Carbon dioxide 19 mmol/L 21-32 Serum or plasma anion gap determination (moles/volume) 9 mmol/L 5-14 Serum or plasma urea nitrogen measurement (mass/volume ) 9 mg/dL 7-18 Serum or plasma creatinine measurement (mass/volume) 0.67 mg/dL 0.60-1.30 Serum or plasma urea nitrogen/creatinine mass ratio 13 NRG Serum or plasma creatinine measurement w ith calculation of estimated glomerular filtration rate > NRG Serum or plasma glucose measurement (mass/volume) 87 mg/dL 70-105 Serum or plasma calcium measurement (mass/volume) 8.4 mg/dL 8.5-10.1 Serum or plasma total bilirubin measurement (mass/volu me) 1.1 mg/dL 0.1-1.0 Serum or plasma alkaline phosphatase aston surement (enzymatic activity/volume) 118 U/L 40-136 Serum or plasma aspartate aminotransfera se measurement (enzymatic activity/volume) 61 U/L 5-34 Serum or plasma alanine aminotransferase measurement (enzymatic activity/volume) 70 U/L 0-55 Serum or plasma protein measurement (mass/volume) 6.0 g/dL 6.4-8.2 Serum or plasma albumin measurement (mass/volume) 3.1 g/dL 3.2-4.5 CALCIUM CORRECTED 9.1 mg/dL 8.5-10.1 Complete blood count (CBC) with automate d white blood cell (WBC) differential - 09/09/18 04:55 Blood leukocytes automated count (number/volume) 6.6 10*3/uL 4.3-11.0 Blood erythrocytes automated count (number/volume) 3.72 10*6/uL 4.35-5.85 Venous blood hemoglobin measurement (mass/volume) 10.6 g/dL 13.3-17.7 Blood hematocrit (volume fraction) 33 % 40-54 Automated erythrocyte mean corpuscular volume 89 [ foz_us] 80-99 Automated erythrocyte mean corpuscular h emoglobin (mass per erythrocyte) 29 pg 25-34 Automated erythrocyte mean corpuscular h emoglobin concentration measurement (mass/volume) 32 g/dL 32-36 Automated erythrocyte distribution width ratio 13. 7 % 10.0- 14.5 Automated blood platelet count [...] 10*3 1.0-4.0 Blood monocytes automated count (number/volume) 0. 7 10*3 0.0-1.0 Automated eosinophil count 0.7 10*3/uL 0 .0-0.3 Automated blood basophil count (count/volume) 0.0 10*3/uL 0.0-0.1 Comprehensive metabolic panel - 09/09/18 04:55 Serum or plasma sodium measurement (moles/volume) 141 mmol/L 135-145 Serum or plasma potassium measurement (moles/volume) 4.0 mmol/L 3.6-5.0 Serum or plasma chloride measurement (moles/volume) 111 mmol/L 98-107 Carbon dioxide 20 mmol/L 21-32 Serum or plasma anion gap determination (moles/volume) 10 mmol/L 5-14 Serum or plasma urea nitrogen measurement (mass/volume ) 10 mg/dL 7-18 Serum or plasma creatinine measurement (mass/volume) 0.73 mg/dL 0.60-1.30 Serum or plasma urea nitrogen/creatinine mass ratio 14 NRG Serum or plasma creatinine measurement w ith calculation of estimated glomerular filtration rate > NRG Serum or plasma glucose measurement (mass/volume) 93 mg/dL 70-105 Serum or plasma calcium measurement (mass/volume) 8.6 mg/dL 8.5-10.1 Serum or plasma total bilirubin measurement (mass/volu me) 0.5 mg/dL 0.1-1.0 Serum or plasma alkaline phosphatase aston surement (enzymatic activity/volume) 110 U/L 40-136 Serum or plasma aspartate aminotransfera se measurement (enzymatic activity/volume) 30 U/L 5-34 Serum or plasma alanine aminotransferase measurement (enzymatic activity/volume) 51 U/L 0-55 Serum or plasma protein measurement (mass/volume) 5.8 g/dL 6.4-8.2 Serum or plasma albumin measurement (mass/volume) 3.0 g/dL 3.2-4.5 CALCIUM CORRECTED 9.4 mg/dL 8.5-10.1 Magnesium - 09/09/18 04:55 Magnesium 1.7 mg/dL 1.8-2.4 Serum or plasma lithium measurement (mol es/volume) - 09/09/18 04:55 BNP level 219.5 pg/mL <100.0 Complete blood count (CBC) with automate d white blood cell (WBC) differential - 09/15/18 05:41 Blood leukocytes automated count (number/volume) 5.3 10*3/uL 4.3-11.0 Blood erythrocytes automated count (number/volume) 3.89 10*6/uL 4.35-5.85 Venous blood hemoglobin measurement (mass/volume) 10.9 g/dL 13.3-17.7 Blood hematocrit (volume fraction) 34 % 40-54 Automated erythrocyte mean corpuscular volume 87 [ foz_us] 80-99 Automated erythrocyte mean corpuscular h emoglobin (mass per erythrocyte) 28 pg 25-34 Automated erythrocyte mean corpuscular h emoglobin concentration measurement (mass/volume) 32 g/dL 32-36 Automated erythrocyte distribution width ratio 13. 7 % 10.0- 14.5 Automated blood platelet count [...] 10*3 1.0-4.0 Blood monocytes automated count (number/volume) 0. 5 10*3 0.0-1.0 Automated eosinophil count 0.7 10*3/uL 0 .0-0.3 Automated blood basophil count (count/volume) 0.0 10*3/uL 0.0-0.1 Comprehensive metabolic panel - 09/15/18 05:41 Serum or plasma sodium measurement (moles/volume) 138 mmol/L 135-145 Serum or plasma potassium measurement (moles/volume) 3.9 mmol/L 3.6-5.0 Serum or plasma chloride measurement (moles/volume) 104 mmol/L 98-107 Carbon dioxide 25 mmol/L 21-32 Serum or plasma anion gap determination (moles/volume) 9 mmol/L 5-14 Serum or plasma urea nitrogen measurement (mass/volume ) 17 mg/dL 7-18 Serum or plasma creatinine measurement (mass/volume) 0.83 mg/dL 0.60-1.30 Serum or plasma urea nitrogen/creatinine mass ratio 20 NRG Serum or plasma creatinine measurement w ith calculation of estimated glomerular filtration rate > NRG Serum or plasma glucose measurement (mass/volume) 94 mg/dL 70-105 Serum or plasma calcium measurement (mass/volume) 9.4 mg/dL 8.5-10.1 Serum or plasma total bilirubin measurement (mass/volu me) 0.2 mg/dL 0.1-1.0 Serum or plasma alkaline phosphatase aston surement (enzymatic activity/volume) 100 U/L 40-136 Serum or plasma aspartate aminotransfera se measurement (enzymatic activity/volume) 24 U/L 5-34 Serum or plasma alanine aminotransferase measurement (enzymatic activity/volume) 28 U/L 0-55 Serum or plasma protein measurement (mass/volume) 6.5 g/dL 6.4-8.2 Serum or plasma albumin measurement (mass/volume) 3.5 g/dL 3.2-4.5 CALCIUM CORRECTED 9.8 mg/dL 8.5-10.1 Blood CBC with ordered manual differenti al panel - 11/12/18 10:45 Blood leukocytes automated count (number/volume) 5.7 10*3/uL 4.3-11.0 Blood erythrocytes automated count (number/volume) 4.30 10*6/uL 4.35-5.85 Venous blood hemoglobin measurement (mass/volume) 12.2 g/dL 13.3-17.7 Blood hematocrit (volume fraction) 38 % 40-54 Automated erythrocyte mean corpuscular volume 89 [ foz_us] 80-99 Automated erythrocyte mean corpuscular h emoglobin (mass per erythrocyte) 28 pg 25-34 Automated erythrocyte mean corpuscular h emoglobin concentration measurement (mass/volume) 32 g/dL 32-36 Automated erythrocyte distribution width ratio 13. 9 % 10.0- 14.5 Automated blood platelet count [...] 10*3 1.0-4.0 Blood monocytes automated count (number/volume) 0. 4 10*3 0.0-1.0 Automated eosinophil count 0.5 10*3/uL 0 .0-0.3 Automated blood basophil count (count/volume) 0.0 10*3/uL [...] 5-14 Serum or plasma urea nitrogen measurement (mass/volume ) 11 mg/dL 7-18 Serum or plasma creatinine measurement (mass/volume) 0.76 mg/dL 0.60-1.30 Serum or plasma urea nitrogen/creatinine mass ratio 14 NRG Serum or plasma creatinine measurement w ith calculation of estimated glomerular filtration rate > NRG Serum or plasma glucose measurement (mass/volume) 104 mg/dL 70-105 Serum or plasma calcium measurement (mass/volume) 8.9 mg/dL 8.5-10.1 Serum or plasma total bilirubin measurement (mass/volu me) 0.2 mg/dL 0.1-1.0 Serum or plasma alkaline phosphatase aston surement (enzymatic activity/volume) 167 U/L 40-136 Serum or plasma aspartate aminotransfera se measurement (enzymatic activity/volume) 44 U/L 5-34 Serum or plasma alanine aminotransferase measurement (enzymatic activity/volume) 35 U/L 0-55 Serum or plasma protein measurement (mass/volume) 6.8 g/dL 6.4-8.2 Serum or plasma albumin measurement (mass/volume) 4.0 g/dL 3.2-4.5 CALCIUM CORRECTED 8.9 mg/dL 8.5-10.1 Serum ragweed IgE antibody assay - 11/12 10:45 [id number] 8.6 % 0.0-5.0 Serum or plasma IgG measurement (mass/vo lume) - 11/12/18 10:45 [id number] 1072 % [id number] PT panel in platelet poor plasma by coag ulation assay - 11/14/18 12:00 Prothrombin time (PT) in platelet poor plasma by coagu lation assay 15.1 s 12.2-14.7 INR in platelet poor plasma or blood by coagulation as say 1.1 0.8-1.4 Activated partial thromboplastin time (a PTT) in platelet poor plasma bycoagulation assay - 11/14/18 12:00 Activated partial thromboplastin time (a PTT) in platelet poor plasma bycoagulation assay 30 s 24-35 Blood lactic acid measurement (moles/vol ume) - 11/14/18 12:00 Blood lactic acid measurement (moles/volume) 1.13 mmol/L 0.50-2.00 Complete blood count (CBC) with automate d white blood cell (WBC) differential - 11/14/18 12:00 Blood leukocytes automated count (number/volume) 16.7 10*3/uL 4.3-11.0 Blood erythrocytes automated count (number/volume) 4.26 10*6/uL 4.35-5.85 Venous blood hemoglobin measurement (mass/volume) 12.2 g/dL 13.3-17.7 Blood hematocrit (volume fraction) 38 % 40-54 Automated erythrocyte mean corpuscular volume 88 [ foz_us] 80-99 Automated erythrocyte mean corpuscular h emoglobin (mass per erythrocyte) 29 pg 25-34 Automated erythrocyte mean corpuscular h emoglobin concentration measurement (mass/volume) 32 g/dL 32-36 Automated erythrocyte distribution width ratio 14. 6 % 10.0- 14.5 Automated blood platelet count [...] 10*3 1.0-4.0 Blood monocytes automated count (number/volume) 0. 5 10*3 0.0-1.0 Automated eosinophil count 0.0 10*3/uL 0 .0-0.3 Automated blood basophil count (count/volume) 0.0 10*3/uL 0.0-0.1 Manual absolute plasma cell count - 10/22 09/08 12:00 Blood monocytes/100 leukocytes 2 % NRG Manual blood segmented neutrophils/100 leukocytes 60 % NRG Blood band neutrophils/100 leukocytes 35 % NRG Manual blood lymphocytes/100 leukocytes 3 % NRG Blood erythrocyte morphology finding identification NORMAL NRG Comprehensive metabolic panel - 11/14/18 12:00 Serum or plasma sodium measurement (moles/volume) 139 mmol/L 135-145 Serum or plasma potassium measurement (moles/volume) 3.5 mmol/L 3.6-5.0 Serum or plasma chloride measurement (moles/volume) 101 mmol/L 98-107 Carbon dioxide 25 mmol/L 21-32 Serum or plasma anion gap determination (moles/volume) 13 mmol/L 5-14 Serum or plasma urea nitrogen measurement (mass/volume ) 18 mg/dL 7-18 Serum or plasma creatinine measurement (mass/volume) 0.95 mg/dL 0.60-1.30 Serum or plasma urea nitrogen/creatinine mass ratio 19 NRG Serum or plasma creatinine measurement w ith calculation of estimated glomerular filtration rate > NRG Serum or plasma glucose measurement (mass/volume) 134 mg/dL 70-105 Serum or plasma calcium measurement (mass/volume) 8.4 mg/dL 8.5-10.1 Serum or plasma total bilirubin measurement (mass/volu me) 0.7 mg/dL 0.1-1.0 Serum or plasma alkaline phosphatase aston surement (enzymatic activity/volume) 117 U/L 40-136 Serum or plasma aspartate aminotransfera se measurement (enzymatic activity/volume) 39 U/L 5-34 Serum or plasma alanine aminotransferase measurement (enzymatic activity/volume) 25 U/L 0-55 Serum or plasma protein measurement (mass/volume) 6.6 g/dL 6.4-8.2 Serum or plasma albumin measurement (mass/volume) 3.6 g/dL 3.2-4.5 CALCIUM CORRECTED 8.7 mg/dL 8.5-10.1 Serum or plasma troponin i.cardiac measu rement (mass/volume) - 11/14/18 12:00 Serum or plasma troponin i.cardiac measurement (mass/v olume) < ng/mL <0.30 Bacterial blood culture - 11/14/18 12:00 Bacterial blood culture NG NRG Complete urinalysis with reflex to cultu re - 11/14/18 12:19 Urine color determination YELLOW NRG Urine clarity determination CLEAR NR G Urine pH measurement by test strip 6.0 5-9 Specific gravity of urine by test strip 1.020 1.016-1.022 Urine protein assay by test strip, semi-quantitative TRACE NEGATIVE Urine glucose detection by automated test strip NE GATIVE NEGATIVE Erythrocytes detection in urine sediment by light micr oscopy 1+ NEGATIVE Urine ketones detection by automated test strip TR JUAN NEGATIVE Urine nitrite detection by test strip NEGATIVE NEGATIVE Urine total bilirubin detection by test strip NEGA TIVE NEGATIVE Urine urobilinogen measurement by automated test strip (mass/volume) 0.2 mg/dL NORMAL Urine leukocyte esterase detection by dipstick NEG ATIVE NEGATIVE Automated urine sediment erythrocyte cou nt by microscopy (number/high power field) [HPF] NRG Automated urine sediment leukocyte count by microscopy (number/high power field) RARE NRG Bacteria detection in urine sediment by light microsco py NEGATIVE NRG Squamous epithelial cells detection in u rine sediment by light microscopy RARE NRG Crystals detection in urine sediment by light microsco py PRESENT NRG Casts detection in urine sediment by light microscopy NONE NRG Mucus detection in urine sediment by light microscopy SMALL NRG Complete urinalysis with reflex to culture CULTURE PENDING NRG Amorphous sediment detection in urine sediment by ligh t microscopy FEW JOSE URATES NRG Renal epithelial cells detection in urin e sediment by light microscopy 5-10 NRG Bacterial urine culture - 11/14/18 12:19 Bacterial urine culture NG NRG Bacterial blood culture - 11/14/18 13:50 Bacterial blood culture NG NRG Automated blood complete blood count (he mogram) panel - 11/15/18 05:33 Blood leukocytes automated count (number/volume) 10.1 10*3/uL 4.3-11.0 Blood erythrocytes automated count (number/volume) 3.81 10*6/uL 4.35-5.85 Venous blood hemoglobin measurement (mass/volume) 10.9 g/dL 13.3-17.7 Blood hematocrit (volume fraction) 34 % 40-54 Automated erythrocyte mean corpuscular volume 88 [ foz_us] 80-99 Automated erythrocyte mean corpuscular h emoglobin (mass per erythrocyte) 29 pg 25-34 Automated erythrocyte mean corpuscular h emoglobin concentration measurement (mass/volume) 32 g/dL 32-36 Automated erythrocyte distribution width ratio 14. 9 % 10.0- 14.5 Automated blood platelet count (count/volume) 147 10*3/uL 130-400 Automated blood platelet mean volume measurement 10.8 [foz_us] 7.4-10.4 Comprehensive metabolic panel - 11/15/18 05:33 Serum or plasma sodium measurement (moles/volume) 139 mmol/L 135-145 Serum or plasma potassium measurement (moles/volume) 2.9 mmol/L 3.6-5.0 Serum or plasma chloride measurement (moles/volume) 107 mmol/L 98-107 Carbon dioxide 23 mmol/L 21-32 Serum or plasma anion gap determination (moles/volume) 9 mmol/L 5-14 Serum or plasma urea nitrogen measurement (mass/volume ) 18 mg/dL 7-18 Serum or plasma creatinine measurement (mass/volume) 0.81 mg/dL 0.60-1.30 Serum or plasma urea nitrogen/creatinine mass ratio 22 NRG Serum or plasma creatinine measurement w ith calculation of estimated glomerular filtration rate > NRG Serum or plasma glucose measurement (mass/volume) 99 mg/dL 70-105 Serum or plasma calcium measurement (mass/volume) 8.6 mg/dL 8.5-10.1 Serum or plasma total bilirubin measurement (mass/volu me) 0.4 mg/dL 0.1-1.0 Serum or plasma alkaline phosphatase aston surement (enzymatic activity/volume) 101 U/L 40-136 Serum or plasma aspartate aminotransfera se measurement (enzymatic activity/volume) 36 U/L 5-34 Serum or plasma alanine aminotransferase measurement (enzymatic activity/volume) 24 U/L 0-55 Serum or plasma protein measurement (mass/volume) 5.7 g/dL 6.4-8.2 Serum or plasma albumin measurement (mass/volume) 3.0 g/dL 3.2-4.5 CALCIUM CORRECTED 9.4 mg/dL 8.5-10.1 Automated blood complete blood count (he mogram) panel - 11/16/18 04:31 Blood leukocytes automated count (number/volume) 6.4 10*3/uL 4.3-11.0 Blood erythrocytes automated count (number/volume) 3.81 10*6/uL 4.35-5.85 Venous blood hemoglobin measurement (mass/volume) 10.7 g/dL 13.3-17.7 Blood hematocrit (volume fraction) 33 % 40-54 Automated erythrocyte mean corpuscular volume 87 [ foz_us] 80-99 Automated erythrocyte mean corpuscular h emoglobin (mass per erythrocyte) 28 pg 25-34 Automated erythrocyte mean corpuscular h emoglobin concentration measurement (mass/volume) 32 g/dL 32-36 Automated erythrocyte distribution width ratio 14. 6 % 10.0- 14.5 Automated blood platelet count (count/volume) 157 10*3/uL 130-400 Automated blood platelet mean volume measurement 10.9 [foz_us] 7.4-10.4 Comprehensive metabolic panel - 11/16/18 04:31 Serum or plasma sodium measurement (moles/volume) 138 mmol/L 135-145 Serum or plasma potassium measurement (moles/volume) 3.7 mmol/L 3.6-5.0 Serum or plasma chloride measurement (moles/volume) 106 mmol/L 98-107 Carbon dioxide 24 mmol/L 21-32 Serum or plasma anion gap determination (moles/volume) 8 mmol/L 5-14 Serum or plasma urea nitrogen measurement (mass/volume ) 11 mg/dL 7-18 Serum or plasma creatinine measurement (mass/volume) 0.79 mg/dL 0.60-1.30 Serum or plasma urea nitrogen/creatinine mass ratio 14 NRG Serum or plasma creatinine measurement w ith calculation of estimated glomerular filtration rate > NRG Serum or plasma glucose measurement (mass/volume) 93 mg/dL 70-105 Serum or plasma calcium measurement (mass/volume) 8.4 mg/dL 8.5-10.1 Serum or plasma total bilirubin measurement (mass/volu me) 0.2 mg/dL 0.1-1.0 Serum or plasma alkaline phosphatase aston surement (enzymatic activity/volume) 92 U/L 40-136 Serum or plasma aspartate aminotransfera se measurement (enzymatic activity/volume) 27 U/L 5-34 Serum or plasma alanine aminotransferase measurement (enzymatic activity/volume) 20 U/L 0-55 Serum or plasma protein measurement (mass/volume) 5.5 g/dL 6.4-8.2 Serum or plasma albumin measurement (mass/volume) 3.0 g/dL 3.2-4.5 CALCIUM CORRECTED 9.2 mg/dL 8.5-10.1 Magnesium - 11/16/18 04:31 Magnesium 1.4 mg/dL 1.8-2.4 Complete blood count (CBC) with automate d white blood cell (WBC) differential - 11/17/18 08:25 Blood leukocytes automated count (number/volume) 6.4 10*3/uL 4.3-11.0 Blood erythrocytes automated count (number/volume) 3.95 10*6/uL 4.35-5.85 Venous blood hemoglobin measurement (mass/volume) 11.1 g/dL 13.3-17.7 Blood hematocrit (volume fraction) 34 % 40-54 Automated erythrocyte mean corpuscular volume 86 [ foz_us] 80-99 Automated erythrocyte mean corpuscular h emoglobin (mass per erythrocyte) 28 pg 25-34 Automated erythrocyte mean corpuscular h emoglobin concentration measurement (mass/volume) 33 g/dL 32-36 Automated erythrocyte distribution width ratio 14. 6 % 10.0- 14.5 Automated blood platelet count (count/volume) 208 10*3/uL 130-400 Automated blood platelet mean volume measurement 10.5 [foz_us] 7.4-10.4 Automated blood neutrophils/100 leukocytes 71 % 42-75 Automated blood lymphocytes/100 leukocytes 17 % 12-44 Blood monocytes/100 leukocytes 7 % 0-12 Automated blood eosinophils/100 leukocytes 5 % 0-10 Automated blood basophils/100 leukocytes 0 % 0-10 Blood neutrophils automated count (number/volume) 4.5 10*3 1.8-7.8 Blood lymphocytes automated count (number/volume) 1.1 10*3 1.0-4.0 Blood monocytes automated count (number/volume) 0. 5 10*3 0.0-1.0 Automated eosinophil count 0.3 10*3/uL 0 .0-0.3 Automated blood basophil count (count/volume) 0.0 10*3/uL 0.0-0.1 Comprehensive metabolic panel - 11/17/18 08:25 Serum or plasma sodium measurement (moles/volume) 140 mmol/L 135-145 Serum or plasma potassium measurement (moles/volume) 3.1 mmol/L 3.6-5.0 Serum or plasma chloride measurement (moles/volume) 105 mmol/L 98-107 Carbon dioxide 23 mmol/L 21-32 Serum or plasma anion gap determination (moles/volume) 12 mmol/L 5-14 Serum or plasma urea nitrogen measurement (mass/volume ) 7 mg/dL 7-18 Serum or plasma creatinine measurement (mass/volume) 0.77 mg/dL 0.60-1.30 Serum or plasma urea nitrogen/creatinine mass ratio 9 NRG Serum or plasma creatinine measurement w ith calculation of estimated glomerular filtration rate > NRG Serum or plasma glucose measurement (mass/volume) 122 mg/dL 70-105 Serum or plasma calcium measurement (mass/volume) 8.5 mg/dL 8.5-10.1 Serum or plasma total bilirubin measurement (mass/volu me) 0.3 mg/dL 0.1-1.0 Serum or plasma alkaline phosphatase aston surement (enzymatic activity/volume) 89 U/L 40-136 Serum or plasma aspartate aminotransfera se measurement (enzymatic activity/volume) 22 U/L 5-34 Serum or plasma alanine aminotransferase measurement (enzymatic activity/volume) 18 U/L 0-55 Serum or plasma protein measurement (mass/volume) 5.8 g/dL 6.4-8.2 Serum or plasma albumin measurement (mass/volume) 3.0 g/dL 3.2-4.5 CALCIUM CORRECTED 9.3 mg/dL 8.5-10.1 Blood CBC with ordered manual differenti al panel - 11/22/18 08:20 Blood leukocytes automated count (number/volume) 15.0 10*3/uL 4.3-11.0 Blood erythrocytes automated count (number/volume) 4.24 10*6/uL 4.35-5.85 Venous blood hemoglobin measurement (mass/volume) 12.2 g/dL 13.3-17.7 Blood hematocrit (volume fraction) 37 % 40-54 Automated erythrocyte mean corpuscular volume 88 [ foz_us] 80-99 Automated erythrocyte mean corpuscular h emoglobin (mass per erythrocyte) 29 pg 25-34 Automated erythrocyte mean corpuscular h emoglobin concentration measurement (mass/volume) 33 g/dL 32-36 Automated erythrocyte distribution width ratio 14. 5 % 10.0- 14.5 Automated blood platelet count (count/volume) 303 10*3/uL 130-400 Automated blood platelet mean volume measurement 10.2 [foz_us] 7.4-10.4 Automated blood neutrophils/100 leukocytes 84 % 42-75 Automated blood lymphocytes/100 leukocytes 8 % 12-44 Blood monocytes/100 leukocytes 5 % NRG Automated blood eosinophils/100 leukocytes 2 % 0-10 Automated blood basophils/100 leukocytes 0 % 0-10 Blood neutrophils automated count (number/volume) 12.5 10*3 1.8-7.8 Blood lymphocytes automated count (number/volume) 1.2 10*3 1.0-4.0 Blood monocytes automated count (number/volume) 0. 8 10*3 0.0-1.0 Automated eosinophil count 0.3 10*3/uL 0 .0-0.3 Automated blood basophil count (count/volume) 0.0 10*3/uL 0.0-0.1 Manual blood segmented neutrophils/100 leukocytes 75 % NRG Blood band neutrophils/100 leukocytes 10 % NRG Manual blood lymphocytes/100 leukocytes 8 % NRG Manual eosinophils/100 leukocytes in nose 2 % NRG Manual blood basophils/100 leukocytes 0 % NRG Blood erythrocyte morphology finding identification NORMAL NRG Blood lactic acid measurement (moles/vol ume) - 11/22/18 08:20 Blood lactic acid measurement (moles/volume) 0.91 mmol/L 0.50-2.00 Comprehensive metabolic panel - 11/22/18 08:20 Serum or plasma sodium measurement (moles/volume) 137 mmol/L 135-145 Serum or plasma potassium measurement (moles/volume) 3.8 mmol/L 3.6-5.0 Serum or plasma chloride measurement (moles/volume) 98 mmol/L 98-107 Carbon dioxide 25 mmol/L 21-32 Serum or plasma anion gap determination (moles/volume) 14 mmol/L 5-14 Serum or plasma urea nitrogen measurement (mass/volume ) 13 mg/dL 7-18 Serum or plasma creatinine measurement (mass/volume) 0.88 mg/dL 0.60-1.30 Serum or plasma urea nitrogen/creatinine mass ratio 15 NRG Serum or plasma creatinine measurement w ith calculation of estimated glomerular filtration rate > NRG Serum or plasma glucose measurement (mass/volume) 134 mg/dL 70-105 Serum or plasma calcium measurement (mass/volume) 9.3 mg/dL 8.5-10.1 Serum or plasma total bilirubin measurement (mass/volu me) 0.3 mg/dL 0.1-1.0 Serum or plasma alkaline phosphatase aston surement (enzymatic activity/volume) 109 U/L 40-136 Serum or plasma aspartate aminotransfera se measurement (enzymatic activity/volume) 28 U/L 5-34 Serum or plasma alanine aminotransferase measurement (enzymatic activity/volume) 18 U/L 0-55 Serum or plasma protein measurement (mass/volume) 7.6 g/dL 6.4-8.2 Serum or plasma albumin measurement (mass/volume) 3.9 g/dL 3.2-4.5 CALCIUM CORRECTED 9.4 mg/dL 8.5-10.1 Bacterial blood culture - 11/22/18 08:20 Bacterial blood culture NG NRG Complete urinalysis with reflex to cultu re - 11/22/18 09:03 Urine color determination YELLOW NRG Urine clarity determination CLEAR NR G Urine pH measurement by test strip 6.0 5-9 Specific gravity of urine by test strip 1.015 1.016-1.022 Urine protein assay by test strip, semi-quantitative NEGATIVE NEGATIVE Urine glucose detection by automated test strip NE GATIVE NEGATIVE Erythrocytes detection in urine sediment by light micr oscopy TRACE NEGATIVE Urine ketones detection by automated test strip NE GATIVE NEGATIVE Urine nitrite detection by test strip NEGATIVE NEGATIVE Urine total bilirubin detection by test strip NEGA TIVE NEGATIVE Urine urobilinogen measurement by automated test strip (mass/volume) 0.2 mg/dL NORMAL Urine leukocyte esterase detection by dipstick NEG ATIVE NEGATIVE Automated urine sediment erythrocyte cou nt by microscopy (number/high power field) RARE NRG Automated urine sediment leukocyte count by microscopy (number/high power field) NONE NRG Bacteria detection in urine sediment by light microsco py NONE NRG Crystals detection in urine sediment by light microsco py NONE NRG Casts detection in urine sediment by light microscopy NONE NRG Mucus detection in urine sediment by light microscopy NEGATIVE NRG Complete urinalysis with reflex to culture NO NRG Complete blood count (CBC) with automate d white blood cell (WBC) differential - 11/23/18 05:25 Blood leukocytes automated count (number/volume) 10.9 10*3/uL 4.3-11.0 Blood erythrocytes automated count (number/volume) 3.67 10*6/uL 4.35-5.85 Venous blood hemoglobin measurement (mass/volume) 10.4 g/dL 13.3-17.7 Blood hematocrit (volume fraction) 33 % 40-54 Automated erythrocyte mean corpuscular volume 89 [ foz_us] 80-99 Automated erythrocyte mean corpuscular h emoglobin (mass per erythrocyte) 28 pg 25-34 Automated erythrocyte mean corpuscular h emoglobin concentration measurement (mass/volume) 32 g/dL 32-36 Automated erythrocyte distribution width ratio 14. 9 % 10.0- 14.5 Automated blood platelet count (count/volume) 242 10*3/uL 130-400 Automated blood platelet mean volume measurement 10.0 [foz_us] 7.4-10.4 Automated blood neutrophils/100 leukocytes 77 % 42-75 Automated blood lymphocytes/100 leukocytes 13 % 12-44 Blood monocytes/100 leukocytes 6 % 0-12 Automated blood eosinophils/100 leukocytes 4 % 0-10 Automated blood basophils/100 leukocytes 0 % 0-10 Blood neutrophils automated count (number/volume) 8.4 10*3 1.8-7.8 Blood lymphocytes automated count (number/volume) 1.4 10*3 1.0-4.0 Blood monocytes automated count (number/volume) 0. 7 10*3 0.0-1.0 Automated eosinophil count 0.4 10*3/uL 0 .0-0.3 Automated blood basophil count (count/volume) 0.0 10*3/uL 0.0-0.1 Vancomycin trough - 11/24/18 12:30 Vancomycin trough 16.4 ug/mL 10.0-20.0 CMP - 12/30/18 09:17 GLUCOSE 104 mg/dL 65-99 UREA NITROGEN (BUN) 17 mg/dL 7-25 CREATININE 1.12 mg/dL 0.70-1.11 eGFR NON-AFR. NIGERIAN 62 mL/min/1.73m2 > OR = 60 eGFR 72 mL/min/1.73m2 > OR = 60 BUN/CREATININE RATIO 15 (calc) 6-22 SODIUM 140 mmol/L 135-146 POTASSIUM 4.4 mmol/L 3.5-5.3 CHLORIDE 102 mmol/L 98-110 CARBON DIOXIDE 30 mmol/L 20-32 CALCIUM 9.3 mg/dL 8.6-10.3 PROTEIN, TOTAL 6.9 g/dL 6.1-8.1 ALBUMIN 3.7 g/dL 3.6-5.1 GLOBULIN 3.2 g/dL (calc) 1.9-3.7 ALBUMIN/GLOBULIN RATIO 1.2 (calc) 1.0-2. 5 BILIRUBIN, TOTAL 0.3 mg/dL 0.2-1.2 ALKALINE PHOSPHATASE 121 U/L 40-115 AST 31 U/L 10-35 ALT 26 U/L 9-46 Blood CBC with ordered manual differenti al panel - 01/06/19 11:30 Blood leukocytes automated count (number/volume) 10.5 10*3/uL 4.3-11.0 Blood erythrocytes automated count (number/volume) 4.17 10*6/uL 4.35-5.85 Venous blood hemoglobin measurement (mass/volume) 11.9 g/dL 13.3-17.7 Blood hematocrit (volume fraction) 37 % 40-54 Automated erythrocyte mean corpuscular volume 89 [ foz_us] 80-99 Automated erythrocyte mean corpuscular h emoglobin (mass per erythrocyte) 29 pg 25-34 Automated erythrocyte mean corpuscular h emoglobin concentration measurement (mass/volume) 32 g/dL 32-36 Automated erythrocyte distribution width ratio 13. 3 % 10.0- 14.5 Automated blood platelet count (count/volume) 289 10*3/uL 130-400 Automated blood platelet mean volume measurement 9.9 [foz_us] 7.4-10.4 Automated blood neutrophils/100 leukocytes 74 % 42-75 Automated blood lymphocytes/100 leukocytes 15 % 12-44 Blood monocytes/100 leukocytes 4 % NRG Automated blood eosinophils/100 leukocytes 5 % 0-10 Automated blood basophils/100 leukocytes 0 % 0-10 Blood neutrophils automated count (number/volume) 7.7 10*3 1.8-7.8 Blood lymphocytes automated count (number/volume) 1.6 10*3 1.0-4.0 Blood monocytes automated count (number/volume) 0. 6 10*3 0.0-1.0 Automated eosinophil count 0.5 10*3/uL 0 .0-0.3 Automated blood basophil count (count/volume) 0.0 10*3/uL 0.0-0.1 Manual blood segmented neutrophils/100 leukocytes 59 % NRG Blood band neutrophils/100 leukocytes 13 % NRG Manual blood lymphocytes/100 leukocytes 18 % NRG Manual eosinophils/100 leukocytes in nose 5 % NRG Manual blood basophils/100 leukocytes 0 % NRG Blood erythrocyte morphology finding identification NORMAL NRG Comprehensive metabolic panel - 01/06/19 11:30 Serum or plasma sodium measurement (moles/volume) 139 mmol/L 135-145 Serum or plasma potassium measurement (moles/volume) 4.2 mmol/L 3.6-5.0 Serum or plasma chloride measurement (moles/volume) 99 mmol/L 98-107 Carbon dioxide 25 mmol/L 21-32 Serum or plasma anion gap determination (moles/volume) 15 mmol/L 5-14 Serum or plasma urea nitrogen measurement (mass/volume ) 17 mg/dL 7-18 Serum or plasma creatinine measurement (mass/volume) 1.04 mg/dL 0.60-1.30 Serum or plasma urea nitrogen/creatinine mass ratio 16 NRG Serum or plasma creatinine measurement w ith calculation of estimated glomerular filtration rate > NRG Serum or plasma glucose measurement (mass/volume) 98 mg/dL 70-105 Serum or plasma calcium measurement (mass/volume) 9.2 mg/dL 8.5-10.1 Serum or plasma total bilirubin measurement (mass/volu me) 0.3 mg/dL 0.1-1.0 Serum or plasma alkaline phosphatase aston surement (enzymatic activity/volume) 123 U/L 40-136 Serum or plasma aspartate aminotransfera se measurement (enzymatic activity/volume) 26 U/L 5-34 Serum or plasma alanine aminotransferase measurement (enzymatic activity/volume) 14 U/L 0-55 Serum or plasma protein measurement (mass/volume) 7.4 g/dL 6.4-8.2 Serum or plasma albumin measurement (mass/volume) 4.0 g/dL 3.2-4.5 CALCIUM CORRECTED 9.2 mg/dL 8.5-10.1 Serum ragweed IgE antibody assay - 01/06 11:30 [id number] 7.0 % 0.0-5.0 Complete blood count (CBC) with automate d white blood cell (WBC) differential - 01/06/19 14:45 Blood leukocytes automated count (number/volume) 9.5 10*3/uL 4.3-11.0 Blood erythrocytes automated count (number/volume) 4.10 10*6/uL 4.35-5.85 Venous blood hemoglobin measurement (mass/volume) 11.6 g/dL 13.3-17.7 Blood hematocrit (volume fraction) 36 % 40-54 Automated erythrocyte mean corpuscular volume 88 [ foz_us] 80-99 Automated erythrocyte mean corpuscular h emoglobin (mass per erythrocyte) 28 pg 25-34 Automated erythrocyte mean corpuscular h emoglobin concentration measurement (mass/volume) 32 g/dL 32-36 Automated erythrocyte distribution width ratio 13. 4 % 10.0- 14.5 Automated blood platelet count (count/volume) 281 10*3/uL 130-400 Automated blood platelet mean volume measurement 10.3 [foz_us] 7.4-10.4 Automated blood neutrophils/100 leukocytes 69 % 42-75 Automated blood lymphocytes/100 leukocytes 20 % 12-44 Blood monocytes/100 leukocytes 5 % 0-12 Automated blood eosinophils/100 leukocytes 5 % 0-10 Automated blood basophils/100 leukocytes 0 % 0-10 Blood neutrophils automated count (number/volume) 6.6 10*3 1.8-7.8 Blood lymphocytes automated count (number/volume) 1.9 10*3 1.0-4.0 Blood monocytes automated count (number/volume) 0. 5 10*3 0.0-1.0 Automated eosinophil count 0.5 10*3/uL 0 .0-0.3 Automated blood basophil count (count/volume) 0.0 10*3/uL 0.0-0.1 PT panel in platelet poor plasma by coag ulation assay - 01/06/19 14:45 Prothrombin time (PT) in platelet poor plasma by coagu lation assay 13.2 s 12.2-14.7 INR in platelet poor plasma or blood by coagulation as say 1.0 0.8-1.4 Activated partial thromboplastin time (a PTT) in platelet poor plasma bycoagulation assay - 01/06/19 14:45 Activated partial thromboplastin time (a PTT) in platelet poor plasma bycoagulation assay 29 s 24-35 Comprehensive metabolic panel - 01/06/19 14:45 Serum or plasma sodium measurement (moles/volume) 138 mmol/L 135-145 Serum or plasma potassium measurement (moles/volume) 4.2 mmol/L 3.6-5.0 Serum or plasma chloride measurement (moles/volume) 99 mmol/L 98-107 Carbon dioxide 25 mmol/L 21-32 Serum or plasma anion gap determination (moles/volume) 14 mmol/L 5-14 Serum or plasma urea nitrogen measurement (mass/volume ) 18 mg/dL 7-18 Serum or plasma creatinine measurement (mass/volume) 1.16 mg/dL 0.60-1.30 Serum or plasma urea nitrogen/creatinine mass ratio 16 NRG Serum or plasma creatinine measurement w ith calculation of estimated glomerular filtration rate > NRG Serum or plasma glucose measurement (mass/volume) 114 mg/dL 70-105 Serum or plasma calcium measurement (mass/volume) 9.3 mg/dL 8.5-10.1 Serum or plasma total bilirubin measurement (mass/volu me) 0.2 mg/dL 0.1-1.0 Serum or plasma alkaline phosphatase aston surement (enzymatic activity/volume) 124 U/L 40-136 Serum or plasma aspartate aminotransfera se measurement (enzymatic activity/volume) 26 U/L 5-34 Serum or plasma alanine aminotransferase measurement (enzymatic activity/volume) 14 U/L 0-55 Serum or plasma protein measurement (mass/volume) 7.6 g/dL 6.4-8.2 Serum or plasma albumin measurement (mass/volume) 4.0 g/dL 3.2-4.5 CALCIUM CORRECTED 9.3 mg/dL 8.5-10.1 TYPE/SCREEN - 01/06/19 17:53 ABO/RH O NEGATIVE ANTIBODY SCREEN NEGATIVE HH - 01/06/19 23:45 Hct 33.8 % 42.0-52.0 Hgb 10.9 g/dL 14.0-17.0 Comprehensive Metabolic Panel - 01/07/19 05:56 Albumin 3.5 g/dL 3.6-5.1 ALP 103 U/L 35-130 ALT 13 U/L 6-45 Anion Gap 12 6-14 AST 19 U/L 2-40 BUN 15 mg/dL 5-25 Calcium 8.9 mg/dL 8.3-10.4 Chloride 107 mmol/L 95-114 CO2 26 mEq/L 22-33 Creat 0.79 mg/dL 0.50-1.50 eGFR 94 mL/min/1.73m2 >59 Globulin 2.7 g/dL 2.3-3.5 Glucose 101 mg/dL 70-110 Osmo 292 280-295 Potassium 3.9 mmol/L 3.5-5.3 Sodium 141 mmol/L 134-148 TBil 0.3 mg/dL 0.2-1.2 TP 6.2 g/dL 6.0-8.3 Comprehensive Metabolic Panel - 01/08/19 06:09 Albumin 3.3 g/dL 3.6-5.1 ALP 95 U/L 35-130 ALT 11 U/L 6-45 Anion Gap 11 6-14 AST 17 U/L 2-40 BUN 10 mg/dL 5-25 Calcium 8.6 mg/dL 8.3-10.4 Chloride 109 mmol/L 95-114 CO2 25 mEq/L 22-33 Creat 0.83 mg/dL 0.50-1.50 eGFR 89 mL/min/1.73m2 >59 Globulin 2.6 g/dL 2.3-3.5 Glucose 100 mg/dL 70-110 Osmo 290 280-295 Potassium 3.8 mmol/L 3.5-5.3 Sodium 141 mmol/L 134-148 TBil 0.3 mg/dL 0.2-1.2 TP 5.9 g/dL 6.0-8.3 Comprehensive Metabolic Panel - 01/09/19 05:25 Albumin 3.3 g/dL 3.6-5.1 ALP 101 U/L 35-130 ALT 11 U/L 6-45 Anion Gap 14 6-14 AST 18 U/L 2-40 BUN 6 mg/dL 5-25 Calcium 9.0 mg/dL 8.3-10.4 Chloride 108 mmol/L 95-114 CO2 25 mEq/L 22-33 Creat 0.78 mg/dL 0.50-1.50 eGFR 96 mL/min/1.73m2 >59 Globulin 2.6 g/dL 2.3-3.5 Glucose 94 mg/dL 70-110 Osmo 293 280-295 Potassium 3.5 mmol/L 3.5-5.3 Sodium 143 mmol/L 134-148 TBil 0.2 mg/dL 0.2-1.2 TP 5.9 g/dL 6.0-8.3 Surgical Pathology - 01/09/19 13:24 Surg Path Sent to [facility] Pathology Comprehensive Metabolic Panel - 01/10/19 05:10 Albumin 3.5 g/dL 3.6-5.1 ALP 110 U/L 35-130 ALT 12 U/L 6-45 Anion Gap 14 6-14 AST 20 U/L 2-40 BUN 5 mg/dL 5-25 Calcium 9.2 mg/dL 8.3-10.4 Chloride 107 mmol/L 95-114 CO2 25 mEq/L 22-33 Creat 0.77 mg/dL 0.50-1.50 eGFR 97 mL/min/1.73m2 >59 Globulin 2.9 g/dL 2.3-3.5 Glucose 88 mg/dL 70-110 Osmo 290 280-295 Potassium 3.7 mmol/L 3.5-5.3 Sodium 142 mmol/L 134-148 TBil 0.3 mg/dL 0.2-1.2 TP 6.4 g/dL 6.0-8.3 CBC with Auto Diff - 01/10/19 05:10 Baso% 0.20 % 0.00-2.50 Eos 0.4 K/uL 0.0-0.7 Eos% 7.7 % 0.0-7.0 Hct 34.8 % 42.0-52.0 Hgb 11.3 g/dL 14.0-17.0 Lym 1.59 K/uL 0.60-3.40 Lym% 29.3 % 10.0-50.0 MCH 28.3 pg 27.0-31.2 MCHC 32.5 g/dL 32.0-36.0 MCV 87.2 fL 80.0-97.0 [place]% 7.6 % 0.0-12.0 MPV 10.2 fL 7.4-10.0 [place]% 55.2 % 37.0-80.0 Plt 267 K/uL 150-400 RBC 3.99 M/uL 4.20-5.40 RDW 13.1 % 11.6-14.8 WBC 5.42 K/uL 5.00-10.00 [place] 2.99 K/uL 2.00-6.90 [place] 0.4 K/uL 0.0-0.9 Baso 0.0 K/uL 0.0-0.2 Complete blood count (CBC) with automate d white blood cell (WBC) differential - 02/23/19 10:25 Blood leukocytes automated count (number/volume) 13.5 10*3/uL 4.3-11.0 Blood erythrocytes automated count (number/volume) 4.01 10*6/uL 4.35-5.85 Venous blood hemoglobin measurement (mass/volume) 11.3 g/dL 13.3-17.7 Blood hematocrit (volume fraction) 36 % 40-54 Automated erythrocyte mean corpuscular volume 89 [ foz_us] 80-99 Automated erythrocyte mean corpuscular h emoglobin (mass per erythrocyte) 28 pg 25-34 Automated erythrocyte mean corpuscular h emoglobin concentration measurement (mass/volume) 32 g/dL 32-36 Automated erythrocyte distribution width ratio 13. 8 % 10.0- 14.5 Automated blood platelet count (count/volume) 199 10*3/uL 130-400 Automated blood platelet mean volume measurement 10.5 [foz_us] 7.4-10.4 Automated blood neutrophils/100 leukocytes 85 % 42-75 Automated blood lymphocytes/100 leukocytes 7 % 12-44 Blood monocytes/100 leukocytes 4 % 0-12 Automated blood eosinophils/100 leukocytes 3 % 0-10 Automated blood basophils/100 leukocytes 0 % 0-10 Blood neutrophils automated count (number/volume) 11.5 10*3 1.8-7.8 Blood lymphocytes automated count (number/volume) 0.9 10*3 1.0-4.0 Blood monocytes automated count (number/volume) 0. 6 10*3 0.0-1.0 Automated eosinophil count 0.4 10*3/uL 0 .0-0.3 Automated blood basophil count (count/volume) 0.0 10*3/uL 0.0-0.1 Blood lactic acid measurement (moles/vol ume) - 02/23/19 10:25 Blood lactic acid measurement (moles/volume) 1.16 mmol/L 0.50-2.00 Influenza virus A and B antigen detectio n - 02/23/19 10:25 FLU RESULT NEGATIVE FOR INFLUENZA A AND B ANTIGENS BY IA [facility] Comprehensive metabolic panel - 02/23/19 10:25 Serum or plasma sodium measurement (moles/volume) 142 mmol/L 135-145 Serum or plasma potassium measurement (moles/volume) 3.9 mmol/L 3.6-5.0 Serum or plasma chloride measurement (moles/volume) 99 mmol/L 98-107 Carbon dioxide 30 mmol/L 21-32 Serum or plasma anion gap determination (moles/volume) 13 mmol/L 5-14 Serum or plasma urea nitrogen measurement (mass/volume ) 11 mg/dL 7-18 Serum or plasma creatinine measurement (mass/volume) 0.69 mg/dL 0.60-1.30 Serum or plasma urea nitrogen/creatinine mass ratio 16 NRG Serum or plasma creatinine measurement w ith calculation of estimated glomerular filtration rate > NRG Serum or plasma glucose measurement (mass/volume) 125 mg/dL 70-105 Serum or plasma calcium measurement (mass/volume) 9.2 mg/dL 8.5-10.1 Serum or plasma total bilirubin measurement (mass/volu me) 0.9 mg/dL 0.1-1.0 Serum or plasma alkaline phosphatase aston surement (enzymatic activity/volume) 137 U/L 40-136 Serum or plasma aspartate aminotransfera se measurement (enzymatic activity/volume) 48 U/L 5-34 Serum or plasma alanine aminotransferase measurement (enzymatic activity/volume) 45 U/L 0-55 Serum or plasma protein measurement (mass/volume) 7.2 g/dL 6.4-8.2 Serum or plasma albumin measurement (mass/volume) 3.8 g/dL 3.2-4.5 CALCIUM CORRECTED 9.4 mg/dL 8.5-10.1 Magnesium - 02/23/19 10:25 Magnesium 1.8 mg/dL 1.6-2.4 Manual absolute plasma cell count - 07/09 10:25 Blood monocytes/100 leukocytes 6 % NRG Manual blood segmented neutrophils/100 leukocytes 79 % NRG Blood band neutrophils/100 leukocytes 2 % NRG Manual blood lymphocytes/100 leukocytes 9 % NRG Manual eosinophils/100 leukocytes in nose 3 % NRG Manual blood basophils/100 leukocytes 0 % NRG Manual blood metamyelocytes/100 leukocytes 1 % NRG Bacterial blood culture - 02/23/19 10:25 Bacterial blood culture NG NRG Bacterial blood culture - 02/23/19 11:20 Bacterial blood culture NG NRG Complete blood count (CBC) with automate d white blood cell (WBC) differential - 02/24/19 05:20 Blood leukocytes automated count (number/volume) 7.0 10*3/uL 4.3-11.0 Blood erythrocytes automated count (number/volume) 3.58 10*6/uL 4.35-5.85 Venous blood hemoglobin measurement (mass/volume) 9.9 g/dL 13.3-17.7 Blood hematocrit (volume fraction) 32 % 40-54 Automated erythrocyte mean corpuscular volume 89 [ foz_us] 80-99 Automated erythrocyte mean corpuscular h emoglobin (mass per erythrocyte) 28 pg 25-34 Automated erythrocyte mean corpuscular h emoglobin concentration measurement (mass/volume) 31 g/dL 32-36 Automated erythrocyte distribution width ratio 14. 3 % 10.0- 14.5 Automated blood platelet count (count/volume) 178 10*3/uL 130-400 Automated blood platelet mean volume measurement 10.9 [foz_us] 7.4-10.4 Automated blood neutrophils/100 leukocytes 58 % 42-75 Automated blood lymphocytes/100 leukocytes 24 % 12-44 Blood monocytes/100 leukocytes 9 % 0-12 Automated blood eosinophils/100 leukocytes 10 % 0-10 Automated blood basophils/100 leukocytes 0 % 0-10 Blood neutrophils automated count (number/volume) 4.0 10*3 1.8-7.8 Blood lymphocytes automated count (number/volume) 1.7 10*3 1.0-4.0 Blood monocytes automated count (number/volume) 0. 6 10*3 0.0-1.0 Automated eosinophil count 0.7 10*3/uL 0 .0-0.3 Automated blood basophil count (count/volume) 0.0 10*3/uL 0.0-0.1 Comprehensive metabolic panel - 02/24/19 05:20 Serum or plasma sodium measurement (moles/volume) 139 mmol/L 135-145 Serum or plasma potassium measurement (moles/volume) 3.7 mmol/L 3.6-5.0 Serum or plasma chloride measurement (moles/volume) 102 mmol/L 98-107 Carbon dioxide 27 mmol/L 21-32 Serum or plasma anion gap determination (moles/volume) 10 mmol/L 5-14 Serum or plasma urea nitrogen measurement (mass/volume ) 9 mg/dL 7-18 Serum or plasma creatinine measurement (mass/volume) 0.72 mg/dL 0.60-1.30 Serum or plasma urea nitrogen/creatinine mass ratio 13 NRG Serum or plasma creatinine measurement w ith calculation of estimated glomerular filtration rate > NRG Serum or plasma glucose measurement (mass/volume) 93 mg/dL 70-105 Serum or plasma calcium measurement (mass/volume) 8.7 mg/dL 8.5-10.1 Serum or plasma total bilirubin measurement (mass/volu me) 0.6 mg/dL 0.1-1.0 Serum or plasma alkaline phosphatase aston surement (enzymatic activity/volume) 97 U/L 40-136 Serum or plasma aspartate aminotransfera se measurement (enzymatic activity/volume) 33 U/L 5-34 Serum or plasma alanine aminotransferase measurement (enzymatic activity/volume) 29 U/L 0-55 Serum or plasma protein measurement (mass/volume) 6.1 g/dL 6.4-8.2 Serum or plasma albumin measurement (mass/volume) 3.0 g/dL 3.2-4.5 CALCIUM CORRECTED 9.5 mg/dL 8.5-10.1 Complete blood count (CBC) with automate d white blood cell (WBC) differential - 02/25/19 05:39 Blood leukocytes automated count (number/volume) 6.7 10*3/uL 4.3-11.0 Blood erythrocytes automated count (number/volume) 3.60 10*6/uL 4.35-5.85 Venous blood hemoglobin measurement (mass/volume) 10.2 g/dL 13.3-17.7 Blood hematocrit (volume fraction) 32 % 40-54 Automated erythrocyte mean corpuscular volume 89 [ foz_us] 80-99 Automated erythrocyte mean corpuscular h emoglobin (mass per erythrocyte) 28 pg 25-34 Automated erythrocyte mean corpuscular h emoglobin concentration measurement (mass/volume) 32 g/dL 32-36 Automated erythrocyte distribution width ratio 14. 6 % 10.0- 14.5 Automated blood platelet count (count/volume) 213 10*3/uL 130-400 Automated blood platelet mean volume measurement 10.7 [foz_us] 7.4-10.4 Automated blood neutrophils/100 leukocytes 63 % 42-75 Automated blood lymphocytes/100 leukocytes 19 % 12-44 Blood monocytes/100 leukocytes 9 % 0-12 Automated blood eosinophils/100 leukocytes 9 % 0-10 Automated blood basophils/100 leukocytes 0 % 0-10 Blood neutrophils automated count (number/volume) 4.2 10*3 1.8-7.8 Blood lymphocytes automated count (number/volume) 1.3 10*3 1.0-4.0 Blood monocytes automated count (number/volume) 0. 6 10*3 0.0-1.0 Automated eosinophil count 0.6 10*3/uL 0 .0-0.3 Automated blood basophil count (count/volume) 0.0 10*3/uL 0.0-0.1 Comprehensive metabolic panel - 02/25/19 05:39 Serum or plasma sodium measurement (moles/volume) 140 mmol/L 135-145 Serum or plasma potassium measurement (moles/volume) 3.6 mmol/L 3.6-5.0 Serum or plasma chloride measurement (moles/volume) 103 mmol/L 98-107 Carbon dioxide 28 mmol/L 21-32 Serum or plasma anion gap determination (moles/volume) 9 mmol/L 5-14 Serum or plasma urea nitrogen measurement (mass/volume ) 6 mg/dL 7-18 Serum or plasma creatinine measurement (mass/volume) 0.74 mg/dL 0.60-1.30 Serum or plasma urea nitrogen/creatinine mass ratio 8 NRG Serum or plasma creatinine measurement w ith calculation of estimated glomerular filtration rate > NRG Serum or plasma glucose measurement (mass/volume) 96 mg/dL 70-105 Serum or plasma calcium measurement (mass/volume) 8.9 mg/dL 8.5-10.1 Serum or plasma total bilirubin measurement (mass/volu me) 0.5 mg/dL 0.1-1.0 Serum or plasma alkaline phosphatase aston surement (enzymatic activity/volume) 100 U/L 40-136 Serum or plasma aspartate aminotransfera se measurement (enzymatic activity/volume) 28 U/L 5-34 Serum or plasma alanine aminotransferase measurement (enzymatic activity/volume) 28 U/L 0-55 Serum or plasma protein measurement (mass/volume) 6.4 g/dL 6.4-8.2 Serum or plasma albumin measurement (mass/volume) 3.2 g/dL 3.2-4.5 CALCIUM CORRECTED 9.5 mg/dL 8.5-10.1 Complete blood count (CBC) with automate d white blood cell (WBC) differential - 02/26/19 06:20 Blood leukocytes automated count (number/volume) 4.8 10*3/uL 4.3-11.0 Blood erythrocytes automated count (number/volume) 3.84 10*6/uL 4.35-5.85 Venous blood hemoglobin measurement (mass/volume) 10.6 g/dL 13.3-17.7 Blood hematocrit (volume fraction) 34 % 40-54 Automated erythrocyte mean corpuscular volume 87 [ foz_us] 80-99 Automated erythrocyte mean corpuscular h emoglobin (mass per erythrocyte) 28 pg 25-34 Automated erythrocyte mean corpuscular h emoglobin concentration measurement (mass/volume) 32 g/dL 32-36 Automated erythrocyte distribution width ratio 14. 3 % 10.0- 14.5 Automated blood platelet count (count/volume) 231 10*3/uL 130-400 Automated blood platelet mean volume measurement 10.3 [foz_us] 7.4-10.4 Automated blood neutrophils/100 leukocytes 48 % 42-75 Automated blood lymphocytes/100 leukocytes 27 % 12-44 Blood monocytes/100 leukocytes 10 % 0-12 Automated blood eosinophils/100 leukocytes 14 % 0-10 Automated blood basophils/100 leukocytes 0 % 0-10 Blood neutrophils automated count (number/volume) 2.3 10*3 1.8-7.8 Blood lymphocytes automated count (number/volume) 1.3 10*3 1.0-4.0 Blood monocytes automated count (number/volume) 0. 5 10*3 0.0-1.0 Automated eosinophil count 0.7 10*3/uL 0 .0-0.3 Automated blood basophil count (count/volume) 0.0 10*3/uL 0.0-0.1 Comprehensive metabolic panel - 02/26/19 06:20 Serum or plasma sodium measurement (moles/volume) 140 mmol/L 135-145 Serum or plasma potassium measurement (moles/volume) 3.7 mmol/L 3.6-5.0 Serum or plasma chloride measurement (moles/volume) 103 mmol/L 98-107 Carbon dioxide 27 mmol/L 21-32 Serum or plasma anion gap determination (moles/volume) 10 mmol/L 5-14 Serum or plasma urea nitrogen measurement (mass/volume ) 6 mg/dL 7-18 Serum or plasma creatinine measurement (mass/volume) 0.70 mg/dL 0.60-1.30 Serum or plasma urea nitrogen/creatinine mass ratio 9 NRG Serum or plasma creatinine measurement w ith calculation of estimated glomerular filtration rate > NRG Serum or plasma glucose measurement (mass/volume) 89 mg/dL 70-105 Serum or plasma calcium measurement (mass/volume) 9.2 mg/dL 8.5-10.1 Serum or plasma total bilirubin measurement (mass/volu me) 0.4 mg/dL 0.1-1.0 Serum or plasma alkaline phosphatase aston surement (enzymatic activity/volume) 82 U/L 40-136 Serum or plasma aspartate aminotransfera se measurement (enzymatic activity/volume) 24 U/L 5-34 Serum or plasma alanine aminotransferase measurement (enzymatic activity/volume) 22 U/L 0-55 Serum or plasma protein measurement (mass/volume) 6.7 g/dL 6.4-8.2 Serum or plasma albumin measurement (mass/volume) 3.3 g/dL 3.2-4.5 CALCIUM CORRECTED 9.8 mg/dL 8.5-10.1 Complete blood count (CBC) with automate d white blood cell (WBC) differential - 03/03/19 04:40 Blood leukocytes automated count (number/volume) 4.5 10*3/uL 4.3-11.0 Blood erythrocytes automated count (number/volume) 3.77 10*6/uL 4.35-5.85 Venous blood hemoglobin measurement (mass/volume) 10.3 g/dL 13.3-17.7 Blood hematocrit (volume fraction) 33 % 40-54 Automated erythrocyte mean corpuscular volume 88 [ foz_us] 80-99 Automated erythrocyte mean corpuscular h emoglobin (mass per erythrocyte) 27 pg 25-34 Automated erythrocyte mean corpuscular h emoglobin concentration measurement (mass/volume) 31 g/dL 32-36 Automated erythrocyte distribution width ratio 14. 6 % 10.0- 14.5 Automated blood platelet count (count/volume) 255 10*3/uL 130-400 Automated blood platelet mean volume measurement 10.0 [foz_us] 7.4-10.4 Automated blood neutrophils/100 leukocytes 43 % 42-75 Automated blood lymphocytes/100 leukocytes 33 % 12-44 Blood monocytes/100 leukocytes 9 % 0-12 Automated blood eosinophils/100 leukocytes 15 % 0-10 Automated blood basophils/100 leukocytes 0 % 0-10 Blood neutrophils automated count (number/volume) 1.9 10*3 1.8-7.8 Blood lymphocytes automated count (number/volume) 1.5 10*3 1.0-4.0 Blood monocytes automated count (number/volume) 0. 4 10*3 0.0-1.0 Automated eosinophil count 0.7 10*3/uL 0 .0-0.3 Automated blood basophil count (count/volume) 0.0 10*3/uL 0.0-0.1 Comprehensive metabolic panel - 03/03/19 04:40 Serum or plasma sodium measurement (moles/volume) 141 mmol/L 135-145 Serum or plasma potassium measurement (moles/volume) 4.0 mmol/L 3.6-5.0 Serum or plasma chloride measurement (moles/volume) 106 mmol/L 98-107 Carbon dioxide 26 mmol/L 21-32 Serum or plasma anion gap determination (moles/volume) 9 mmol/L 5-14 Serum or plasma urea nitrogen measurement (mass/volume ) 11 mg/dL 7-18 Serum or plasma creatinine measurement (mass/volume) 0.80 mg/dL 0.60-1.30 Serum or plasma urea nitrogen/creatinine mass ratio 14 NRG Serum or plasma creatinine measurement w ith calculation of estimated glomerular filtration rate > NRG Serum or plasma glucose measurement (mass/volume) 90 mg/dL 70-105 Serum or plasma calcium measurement (mass/volume) 9.2 mg/dL 8.5-10.1 Serum or plasma total bilirubin measurement (mass/volu me) 0.2 mg/dL 0.1-1.0 Serum or plasma alkaline phosphatase aston surement (enzymatic activity/volume) 73 U/L 40-136 Serum or plasma aspartate aminotransfera se measurement (enzymatic activity/volume) 29 U/L 5-34 Serum or plasma alanine aminotransferase measurement (enzymatic activity/volume) 21 U/L 0-55 Serum or plasma protein measurement (mass/volume) 6.7 g/dL 6.4-8.2 Serum or plasma albumin measurement (mass/volume) 3.6 g/dL 3.2-4.5 CALCIUM CORRECTED 9.5 mg/dL 8.5-10.1 Blood CBC with ordered manual differenti al panel - 03/07/19 14:37 Blood leukocytes automated count (number/volume) 6.8 10*3/uL 4.3-11.0 Blood erythrocytes automated count (number/volume) 4.08 10*6/uL 4.35-5.85 Venous blood hemoglobin measurement (mass/volume) 11.4 g/dL 13.3-17.7 Blood hematocrit (volume fraction) 36 % 40-54 Automated erythrocyte mean corpuscular volume 88 [ foz_us] 80-99 Automated erythrocyte mean corpuscular h emoglobin (mass per erythrocyte) 28 pg 25-34 Automated erythrocyte mean corpuscular h emoglobin concentration measurement (mass/volume) 32 g/dL 32-36 Automated erythrocyte distribution width ratio 13. 7 % 10.0- 14.5 Automated blood platelet count (count/volume) 298 10*3/uL 130-400 Automated blood platelet mean volume measurement 10.2 [foz_us] 7.4-10.4 Automated blood neutrophils/100 leukocytes 59 % 42-75 Automated blood lymphocytes/100 leukocytes 27 % 12-44 Blood monocytes/100 leukocytes 3 % NRG Automated blood eosinophils/100 leukocytes 8 % 0-10 Automated blood basophils/100 leukocytes 0 % 0-10 Blood neutrophils automated count (number/volume) 4.0 10*3 1.8-7.8 Blood lymphocytes automated count (number/volume) 1.9 10*3 1.0-4.0 Blood monocytes automated count (number/volume) 0. 4 10*3 0.0-1.0 Automated eosinophil count 0.6 10*3/uL 0 .0-0.3 Automated blood basophil count (count/volume) 0.0 10*3/uL 0.0-0.1 Manual blood segmented neutrophils/100 leukocytes 53 % NRG Blood band neutrophils/100 leukocytes 3 % NRG Manual blood lymphocytes/100 leukocytes 33 % NRG Manual eosinophils/100 leukocytes in nose 8 % NRG Manual blood basophils/100 leukocytes 0 % NR Comprehensive metabolic panel - 03/07/19 14:37 Serum or plasma sodium measurement (moles/volume) 140 mmol/L 135-145 Serum or plasma potassium measurement (moles/volume) 4.4 mmol/L 3.6-5.0 Serum or plasma chloride measurement (moles/volume) 101 mmol/L 98-107 Carbon dioxide 27 mmol/L 21-32 Serum or plasma anion gap determination (moles/volume) 12 mmol/L 5-14 Serum or plasma urea nitrogen measurement (mass/volume ) 14 mg/dL 7-18 Serum or plasma creatinine measurement (mass/volume) 0.85 mg/dL 0.60-1.30 Serum or plasma urea nitrogen/creatinine mass ratio 16 NRG Serum or plasma creatinine measurement w ith calculation of estimated glomerular filtration rate > NRG Serum or plasma glucose measurement (mass/volume) 100 mg/dL 70-105 Serum or plasma calcium measurement (mass/volume) 9.4 mg/dL 8.5-10.1 Serum or plasma total bilirubin measurement (mass/volu me) 0.2 mg/dL 0.1-1.0 Serum or plasma alkaline phosphatase aston surement (enzymatic activity/volume) 91 U/L 40-136 Serum or plasma aspartate aminotransfera se measurement (enzymatic activity/volume) 31 U/L 5-34 Serum or plasma alanine aminotransferase measurement (enzymatic activity/volume) 16 U/L 0-55 Serum or plasma protein measurement (mass/volume) 7.7 g/dL 6.4-8.2 Serum or plasma albumin measurement (mass/volume) 4.1 g/dL 3.2-4.5 CALCIUM CORRECTED 9.3 mg/dL 8.5-10.1 Serum ragweed IgE antibody assay - 03/07 14:37 [id number] 10.9 % 0.0-5.0 Complete blood count (CBC) with automate d white blood cell (WBC) differential - 05/26/19 11:04 Blood leukocytes automated count (number/volume) 13.4 10*3/uL 4.3-11.0 Blood erythrocytes automated count (number/volume) 4.18 10*6/uL 4.35-5.85 Venous blood hemoglobin measurement (mass/volume) 11.6 g/dL 13.3-17.7 Blood hematocrit (volume fraction) 37 % 40-54 Automated erythrocyte mean corpuscular volume 88 [ foz_us] 80-99 Automated erythrocyte mean corpuscular h emoglobin (mass per erythrocyte) 28 pg 25-34 Automated erythrocyte mean corpuscular h emoglobin concentration measurement (mass/volume) 32 g/dL 32-36 Automated erythrocyte distribution width ratio 14. 3 % 10.0- 14.5 Automated blood platelet count (count/volume) 237 10*3/uL 130-400 Automated blood platelet mean volume measurement 10.8 [foz_us] 7.4-10.4 Automated blood neutrophils/100 leukocytes 88 % 42-75 Automated blood lymphocytes/100 leukocytes 6 % 12-44 Blood monocytes/100 leukocytes 5 % 0-12 Automated blood eosinophils/100 leukocytes 1 % 0-10 Automated blood basophils/100 leukocytes 0 % 0-10 Blood neutrophils automated count (number/volume) 11.8 10*3 1.8-7.8 Blood lymphocytes automated count (number/volume) 0.8 10*3 1.0-4.0 Blood monocytes automated count (number/volume) 0. 7 10*3 0.0-1.0 Automated eosinophil count 0.1 10*3/uL 0 .0-0.3 Automated blood basophil count (count/volume) 0.0 10*3/uL 0.0-0.1 PT panel in platelet poor plasma by coag ulation assay - 05/26/19 11:04 Prothrombin time (PT) in platelet poor plasma by coagu lation assay 12.8 s 12.2-14.7 INR in platelet poor plasma or blood by coagulation as say 0.9 0.8-1.4 Activated partial thromboplastin time (a PTT) in platelet poor plasma bycoagulation assay - 05/26/19 11:04 Activated partial thromboplastin time (a PTT) in platelet poor plasma bycoagulation assay 30 s 24-35 Fibrin D-dimer FEU measurement in platel et poor plasma (mass/volume) - 05/26/19 11:04 Fibrin D-dimer FEU measurement in platelet poor plasma (mass/volume) 1.59 ug/mL 0.00-0.49 Comprehensive metabolic panel - 05/26/19 11:04 Serum or plasma sodium measurement (moles/volume) 143 mmol/L 135-145 Serum or plasma potassium measurement (moles/volume) 4.2 mmol/L 3.6-5.0 Serum or plasma chloride measurement (moles/volume) 107 mmol/L 98-107 Carbon dioxide 28 mmol/L 21-32 Serum or plasma anion gap determination (moles/volume) 8 mmol/L 5-14 Serum or plasma urea nitrogen measurement (mass/volume ) 13 mg/dL 7-18 Serum or plasma creatinine measurement (mass/volume) 0.75 mg/dL 0.60-1.30 Serum or plasma urea nitrogen/creatinine mass ratio 17 NRG Serum or plasma creatinine measurement w ith calculation of estimated glomerular filtration rate > NRG Serum or plasma glucose measurement (mass/volume) 107 mg/dL 70-105 Serum or plasma calcium measurement (mass/volume) 8.7 mg/dL 8.5-10.1 Serum or plasma total bilirubin measurement (mass/volu me) 0.5 mg/dL 0.1-1.0 Serum or plasma alkaline phosphatase aston surement (enzymatic activity/volume) 119 U/L 40-136 Serum or plasma aspartate aminotransfera se measurement (enzymatic activity/volume) 29 U/L 5-34 Serum or plasma alanine aminotransferase measurement (enzymatic activity/volume) 23 U/L 0-55 Serum or plasma protein measurement (mass/volume) 6.6 g/dL 6.4-8.2 Serum or plasma albumin measurement (mass/volume) 3.6 g/dL 3.2-4.5 CALCIUM CORRECTED 9.0 mg/dL 8.5-10.1 Magnesium - 05/26/19 11:04 Magnesium 1.6 mg/dL 1.6-2.4 Serum or plasma creatine kinase measurem ent (enzymatic activity/volume) - 05/26/19 11:04 Serum or plasma creatine kinase measurem ent (enzymatic activity/volume) 97 U/L 30-200 Manual absolute plasma cell count - 07/10 11:04 Blood monocytes/100 leukocytes 0 % NRG Manual blood segmented neutrophils/100 leukocytes 81 % NRG Blood band neutrophils/100 leukocytes 11 % NRG Manual blood lymphocytes/100 leukocytes 2 % NRG Manual eosinophils/100 leukocytes in nose 1 % NRG Manual blood basophils/100 leukocytes 0 % NRG Blood lymphocytes variant/100 leukocytes 5 % NRG Blood erythrocyte morphology finding identification NORMAL NRG Influenza virus A and B antigen detectio n - 05/26/19 11:04 FLU RESULT NEGATIVE FOR INFLUENZA A AND B ANTIGENS BY IA NRG Serum or plasma troponin i.cardiac measu rement (mass/volume) - 05/26/19 11:04 Serum or plasma troponin i.cardiac measurement (mass/v olume) < ng/mL <0.028 Myoglobin, serum - 05/26/19 11:04 Myoglobin, serum 90.2 ng/mL 10.0-92.0 Blood lactic acid measurement (moles/vol ume) - 05/26/19 11:04 Blood lactic acid measurement (moles/volume) 1.29 mmol/L 0.50-2.00 Serum or plasma lithium measurement (mol es/volume) - 05/26/19 11:04 BNP PT 456.0 pg/mL <100.0 Bacterial blood culture - 05/26/19 11:04 QUANTITY OF GROWTH . NRG Bacterial blood culture SEE COMMEN NRG Bacterial blood culture - 05/26/19 11:52 Bacterial blood culture NG NRG Serum or plasma troponin i.cardiac measu rement (mass/volume) - 05/26/19 16:26 Serum or plasma troponin i.cardiac measurement (mass/v olume) < ng/mL <0.028 Comprehensive metabolic panel - 05/27/19 10:20 Serum or plasma sodium measurement (moles/volume) 137 mmol/L 135-145 Serum or plasma potassium measurement (moles/volume) 4.2 mmol/L 3.6-5.0 Serum or plasma chloride measurement (moles/volume) 100 mmol/L 98-107 Carbon dioxide 28 mmol/L 21-32 Serum or plasma anion gap determination (moles/volume) 9 mmol/L 5-14 Serum or plasma urea nitrogen measurement (mass/volume ) 10 mg/dL 7-18 Serum or plasma creatinine measurement (mass/volume) 0.70 mg/dL 0.60-1.30 Serum or plasma urea nitrogen/creatinine mass ratio 14 NRG Serum or plasma creatinine measurement w ith calculation of estimated glomerular filtration rate > NRG Serum or plasma glucose measurement (mass/volume) 114 mg/dL 70-105 Serum or plasma calcium measurement (mass/volume) 9.3 mg/dL 8.5-10.1 Serum or plasma total bilirubin measurement (mass/volu me) 0.7 mg/dL 0.1-1.0 Serum or plasma alkaline phosphatase aston surement (enzymatic activity/volume) 116 U/L 40-136 Serum or plasma aspartate aminotransfera se measurement (enzymatic activity/volume) 35 U/L 5-34 Serum or plasma alanine aminotransferase measurement (enzymatic activity/volume) 23 U/L 0-55 Serum or plasma protein measurement (mass/volume) 6.8 g/dL 6.4-8.2 Serum or plasma albumin measurement (mass/volume) 3.7 g/dL 3.2-4.5 CALCIUM CORRECTED 9.5 mg/dL 8.5-10.1 Complete blood count (CBC) with automate d white blood cell (WBC) differential - 05/27/19 10:20 Blood leukocytes automated count (number/volume) 8.2 10*3/uL 4.3-11.0 Blood erythrocytes automated count (number/volume) 4.05 10*6/uL 4.35-5.85 Venous blood hemoglobin measurement (mass/volume) 11.6 g/dL 13.3-17.7 Blood hematocrit (volume fraction) 36 % 40-54 Automated erythrocyte mean corpuscular volume 89 [ foz_us] 80-99 Automated erythrocyte mean corpuscular h emoglobin (mass per erythrocyte) 29 pg 25-34 Automated erythrocyte mean corpuscular h emoglobin concentration measurement (mass/volume) 32 g/dL 32-36 Automated erythrocyte distribution width ratio 13. 9 % 10.0- 14.5 Automated blood platelet count (count/volume) 218 10*3/uL 130-400 Automated blood platelet mean volume measurement 10.7 [fo_us] 7.4-10.4 Automated blood neutrophils/100 leukocytes 74 % 42-75 Automated blood lymphocytes/100 leukocytes 17 % 12-44 Blood monocytes/100 leukocytes 6 % 0-12 Automated blood eosinophils/100 leukocytes 3 % 0-10 Automated blood basophils/100 leukocytes 0 % 0-10 Blood neutrophils automated count (number/volume) 6.0 10*3 1.8-7.8 Blood lymphocytes automated count (number/volume) 1.4 10*3 1.0-4.0 Blood monocytes automated count (number/volume) 0. 5 10*3 0.0-1.0 Automated eosinophil count 0.2 10*3/uL 0 .0-0.3 Automated blood basophil count (count/volume) 0.0 10*3/uL 0.0-0.1 Serum ragweed IgE antibody assay - 05/27 10:20 [id number] 9.6 % 0.0-5.0 Blood CBC with ordered manual differenti al panel - 08/04/19 14:27 Blood leukocytes automated count (number/volume) 11.1 10*3/uL 4.3-11.0 Blood erythrocytes automated count (number/volume) 4.08 10*6/uL 4.35-5.85 Venous blood hemoglobin measurement (mass/volume) 11.6 g/dL 13.3-17.7 Blood hematocrit (volume fraction) 36 % 40-54 Automated erythrocyte mean corpuscular volume 88 [ [facility]_us] 80-99 Automated erythrocyte mean corpuscular h emoglobin (mass per erythrocyte) 28 pg 25-34 Automated erythrocyte mean corpuscular h emoglobin concentration measurement (mass/volume) 33 g/dL 32-36 Automated erythrocyte distribution width ratio 14. 1 % 10.0- 14.5 Automated blood platelet count (count/volume) 215 10*3/uL 130-400 Automated blood platelet mean volume measurement 10.6 [foz_us] 7.4-10.4 Automated blood neutrophils/100 leukocytes 84 % 42-75 Automated blood lymphocytes/100 leukocytes 9 % 12-44 Blood monocytes/100 leukocytes 1 % NRG Automated blood eosinophils/100 leukocytes 1 % 0-10 Automated blood basophils/100 leukocytes 0 % 0-10 Blood neutrophils automated count (number/volume) 9.3 10*3 1.8-7.8 Blood lymphocytes automated count (number/volume) 1.0 10*3 1.0-4.0 Blood monocytes automated count (number/volume) 0. 5 10*3 0.0-1.0 Automated eosinophil count 0.1 10*3/uL 0 .0-0.3 Automated blood basophil count (count/volume) 0.0 10*3/uL 0.0-0.1 Manual blood segmented neutrophils/100 leukocytes 77 % NRG Blood band neutrophils/100 leukocytes 7 % NRG Manual blood lymphocytes/100 leukocytes 13 % NRG Manual eosinophils/100 leukocytes in nose 2 % NRG Manual blood basophils/100 leukocytes 0 % NRG Blood erythrocyte morphology finding identification NORMAL [facility] Comprehensive metabolic panel - 08/04/19 14:27 Serum or plasma sodium measurement (moles/volume) 135 mmol/L 135-145 Serum or plasma potassium measurement (moles/volume) 4.0 mmol/L 3.6-5.0 Serum or plasma chloride measurement (moles/volume) 98 mmol/L 98-107 Carbon dioxide 25 mmol/L 21-32 Serum or plasma anion gap determination (moles/volume) 12 mmol/L 5-14 Serum or plasma urea nitrogen measurement (mass/volume ) 18 mg/dL 7-18 Serum or plasma creatinine measurement (mass/volume) 0.87 mg/dL 0.60-1.30 Serum or plasma urea nitrogen/creatinine mass ratio 21 NRG Serum or plasma creatinine measurement w ith calculation of estimated glomerular filtration rate > NRG Serum or plasma glucose measurement (mass/volume) 132 mg/dL 70-105 Serum or plasma calcium measurement (mass/volume) 9.3 mg/dL 8.5-10.1 Serum or plasma total bilirubin measurement (mass/volu me) 0.7 mg/dL 0.1-1.0 Serum or plasma alkaline phosphatase aston surement (enzymatic activity/volume) 110 U/L 40-136 Serum or plasma aspartate aminotransfera se measurement (enzymatic activity/volume) 60 U/L 5-34 Serum or plasma alanine aminotransferase measurement (enzymatic activity/volume) 57 U/L 0-55 Serum or plasma protein measurement (mass/volume) 7.2 g/dL 6.4-8.2 Serum or plasma albumin measurement (mass/volume) 3.8 g/dL 3.2-4.5 CALCIUM CORRECTED 9.5 mg/dL 8.5-10.1 Serum ragweed IgE antibody assay - 08/03 14:27 [id number] 8.2 % 0.0-5.0 Complete blood count (CBC) with automate d white blood cell (WBC) differential - 09/24/19 19:58 Blood leukocytes automated count (number/volume) 12.5 10*3/uL 4.3-11.0 Blood erythrocytes automated count (number/volume) 4.59 10*6/uL 4.35-5.85 Venous blood hemoglobin measurement (mass/volume) 13.0 g/dL 13.3-17.7 Blood hematocrit (volume fraction) 39 % 40-54 Automated erythrocyte mean corpuscular volume 84 [ foz_us] 80-99 Automated erythrocyte mean corpuscular h emoglobin (mass per erythrocyte) 28 pg 25-34 Automated erythrocyte mean corpuscular h emoglobin concentration measurement (mass/volume) 34 g/dL 32-36 Automated erythrocyte distribution width ratio 13. 4 % 10.0- 14.5 Automated blood platelet count (count/volume) 226 10*3/uL 130-400 Automated blood platelet mean volume measurement 10.6 [foz_us] 7.4-10.4 Automated blood neutrophils/100 leukocytes 78 % 42-75 Automated blood lymphocytes/100 leukocytes 14 % 12-44 Blood monocytes/100 leukocytes 6 % 0-12 Automated blood eosinophils/100 leukocytes 1 % 0-10 Automated blood basophils/100 leukocytes 0 % 0-10 Blood neutrophils automated count (number/volume) 9.8 10*3 1.8-7.8 Blood lymphocytes automated count (number/volume) 1.8 10*3 1.0-4.0 Blood monocytes automated count (number/volume) 0. 7 10*3 0.0-1.0 Automated eosinophil count 0.1 10*3/uL 0 .0-0.3 Automated blood basophil count (count/volume) 0.0 10*3/uL 0.0-0.1 Comprehensive metabolic panel - 09/24/19 19:58 Serum or plasma sodium measurement (moles/volume) 138 mmol/L 135-145 Serum or plasma potassium measurement (moles/volume) 3.1 mmol/L 3.6-5.0 Serum or plasma chloride measurement (moles/volume) 98 mmol/L 98-107 Carbon dioxide 24 mmol/L 21-32 Serum or plasma anion gap determination (moles/volume) 16 mmol/L 5-14 Serum or plasma urea nitrogen measurement (mass/volume ) 18 mg/dL 7-18 Serum or plasma creatinine measurement (mass/volume) 0.60 mg/dL 0.60-1.30 Serum or plasma urea nitrogen/creatinine mass ratio 30 NRG Serum or plasma creatinine measurement w ith calculation of estimated glomerular filtration rate > NRG Serum or plasma glucose measurement (mass/volume) 101 mg/dL 70-105 Serum or plasma calcium measurement (mass/volume) 9.2 mg/dL 8.5-10.1 Serum or plasma total bilirubin measurement (mass/volu me) 0.9 mg/dL 0.1-1.0 Serum or plasma alkaline phosphatase aston surement (enzymatic activity/volume) 99 U/L 40-136 Serum or plasma aspartate aminotransfera se measurement (enzymatic activity/volume) 36 U/L 5-34 Serum or plasma alanine aminotransferase measurement (enzymatic activity/volume) 28 U/L 0-55 Serum or plasma protein measurement (mass/volume) 7.2 g/dL 6.4-8.2 Serum or plasma albumin measurement (mass/volume) 3.6 g/dL 3.2-4.5 CALCIUM CORRECTED 9.5 mg/dL 8.5-10.1 TROPONIN I FS - 09/24/19 19:58 TROPONIN I FS < 0.30 <0.30 Complete urinalysis with reflex to cultu re - 09/24/19 21:05 Urine color determination YELLOW NRG Urine clarity determination CLEAR NR G Urine pH measurement by test strip 7.0 5-9 Specific gravity of urine by test strip 1.020 1.016-1.022 Urine protein assay by test strip, semi-quantitative 1+ NEGATIVE Urine glucose detection by automated test strip NE GATIVE NEGATIVE Erythrocytes detection in urine sediment by light micr oscopy 3+ NEGATIVE Urine ketones detection by automated test strip 2+ NEGATIVE Urine nitrite detection by test strip NEGATIVE NEGATIVE Urine total bilirubin detection by test strip 1+ NEGATIVE Urine urobilinogen measurement by automated test strip (mass/volume) 1.0 mg/dL < = 1.0 Urine leukocyte esterase detection by dipstick NEG ATIVE NEGATIVE Automated urine sediment erythrocyte cou nt by microscopy (number/high power field) [HPF] NRG Automated urine sediment leukocyte count by microscopy (number/high power field) NONE NRG Bacteria detection in urine sediment by light microsco py TRACE NRG Squamous epithelial cells detection in u rine sediment by light microscopy RARE NRG Crystals detection in urine sediment by light microsco py NONE NRG Casts detection in urine sediment by light microscopy NONE NRG Mucus detection in urine sediment by light microscopy NEGATIVE NRG Complete urinalysis with reflex to culture NO NRG Renal epithelial cells detection in urin e sediment by light microscopy 2-5 NRG Urine drug screening test - 09/24/19 21: 05 Urine phencyclidine detection by screening method NEGATIVE NEGATIVE Urine benzodiazepines detection by screening method NEGATIVE NEGATIVE Urine cocaine detection NEGATIVE NEGATI VE Urine amphetamines detection by screening method N EGATIVE NEGATIVE Urine methamphetamine detection by screening method NEGATIVE NEGATIVE Urine cannabinoids detection by screening method N EGATIVE NEGATIVE Urine opiates detection by screening method NEGATI VE NEGATIVE Urine barbiturates detection NEGATIVE N EGATIVE Screening urine tricyclic antidepressants detection NEGATIVE NEGATIVE Urine methadone detection by screening method NEGA TIVE NEGATIVE Urine oxycodone detection NEGATIVE NEGA TIVE Urine propoxyphene detection NEGATIVE N EGATIVE Encounters ACCT No. Visit Date/Time Discharge Status Pt. 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 [id number] 05/27/2019 09:44:00 23:59:59 CLS Outpatient KRYSTIN DENT, KAYCE V [facility] LAB FS MALIGNANT NEOPLASM OF M IDDLE LOBE,BRONCHUS OR LUNG [id number] 05/26/2019 10:48:00 19:30:00 DIS Outpatient CARLA MCCARTNEY MD [facility] ER N/V;R FOOT PAIN [id number] 03/07/2019 14:28:00 23:59:59 CLS Outpatient KRYSTIN DENT, KAYCE V [facility] RAD FS C34.2 [id number] 02/25/2019 11:15:00 15:10:00 DIS Inpatient BEBETO OLIVAREZ DO, [facility] IRF CHEMOTHERAPY NEUROPATHY [id number] 03/03/2019 10:45:00 23:59:59 CLS Preadmit KRYSTIN DENT, KAYCE V [facility] RAD FS C34.2 MALIGNANT NEOPLAS M OF MIDDLE LOBE,BRONCHUS [id number] 02/23/2019 11:58:00 11:15:00 DIS Inpatient BEBETO OLIVAREZ DO, [facility] 4TH PNEUMONIA [id number] 01/06/2019 11:20:00 23:59:59 CLS Outpatient KRYSTIN DENT, KAYCE V [facility] LAB FS C34.2 [id number] 01/06/2019 14:21:00 16:44:00 DIS Emergency GIOVANI CAMPBELL DO [facility] ER FS RECTAL BLEEDING [id number] 12/20/2018 11:14:00 12:40:00 DIS Emergency FARNAZ MCKEON DO [facility] ER FS LT HAND INJ [id number] 11/22/2018 11:05:00 16:50:00 DIS Inpatient OLIVAREZ DO, BEBETO [facility] 4TH LEUKOCYTOSIS PNEUMONI A [id number] 11/14/2018 13:59:00 19:45:00 DIS Inpatient GREG DENT, AMBROSE Yi [facility] 4TH LLE CELLULITIS AMS N/V [id number] 11/12/2018 10:40:00 23:59:59 CLS Outpatient KRYSTIN DENT, KAYCE V [facility] RAD FS MALIGNANT NEOPLASM OF M IDDLE LOBE BRONCHUS OR LUNG [id number] 09/11/2018 10:45:00 10:15:00 DIS Inpatient OLIVAREZ DO, BEBETO [facility] IRF POLYNEUROPATHY,COPD,RUFINO ILITY [id number] 09/07/2018 01:26:00 10:40:00 DIS Inpatient ENRIQUE DENT, KRISTINA Salas [facility] 4TH PNEUMONIA,DYSPHASIA,HYPOKALEMIA,N/V/D,CAROTID [id number] 06/15/2018 00:51:00 11:35:00 DIS Inpatient KRISTINA NUNEZ MD [facility] 4TH PNEUMONIA [id number] 10/05/2018 09:13:48 ACT Document Registration [id number] 07/18/2016 09:26:49 ACT V BRAULIO COOK [facility] [id number] 05/29/2019 14:30:00 05/29/2019 23:59: 59 CLS Outpatient SANYA, SADIA [facility]eralta [facility] [id number] 12/30/2018 09:00:00 Document Registration [id number] 07/16/2018 17:40:00 Document Registration [id number] 01/06/2019 17:00:00 Document Registration [id number] 10/04/2018 20:06:36 ACT Unknown Zack Cook MD
== END 2019-09-24 21:25 | disposition home or self-care (01) ==
LOC: EDUNIT# 19:35 → ER FS 19:39
DX: G89.29 Other chronic pain (principal); M54.9 Dorsalgia, unspecified; J44.9 Chronic obstructive pulmonary disease, unspecified; I10 Essential (primary) hypertension; Z80.0 Family history of malignant neoplasm of digestive organs; Z82.49 Family history of ischemic heart disease and other diseases of the circulatory system; Z85.118 Personal history of other malignant neoplasm of bronchus and lung; Z88.8 Allergy status to other drugs, medicaments and biological substances; Z87.891 Personal history of nicotine dependence; Z96.652 Presence of left artificial knee joint; Z99.81 Dependence on supplemental oxygen
CPT/HCPCS: 36415; 51702; 71045; 80053; 80306; 81000; 84484; 85025; 93005

== ENCOUNTER → 2019-11-24 | Outpatient (CLI) | payer MEDICARE, OTHER ==
[~2019-11-24] MED LIST changes: +CATHETER FLUSH 10 ML SYR IV PRN; +HOLD METFORMIN - RECEIVED CONTRAST 20 ML VIAL IV SCH; +IOHEXOL 350 MG/ML 100 ML (OMNIPAQUE 350) VIAL IV ONE; +NS 100 ML (IVPB) BAG IV ONE
[2019-11-24 10:24] LABS: HEMATOCRIT 37 % (40-54); HEMOGLOBIN 11.9 G/DL (13.3-17.7); MEAN CORPUSCULAR HEMOGLOBIN 29 PG (25-34); WHITE BLOOD COUNT 6.5 10^3/uL (4.3-11.0)
[2019-11-24 10:25] LABS: BASOPHILS % (AUTO) 0 % (0-10); EOSINOPHILS % (AUTO) 5 % (0-10); LYMPHOCYTES % (AUTO) 21 % (12-44); MEAN CORPUSCULAR HGB CONC 32 G/DL (32-36); MEAN CORPUSCULAR VOLUME 88 FL (80-99); MEAN PLATELET VOLUME 10.4 FL (7.4-10.4); MONOCYTES % (AUTO) 7 % (0-12); NEUTROPHILS % (AUTO) 66 % (42-75); PLATELET COUNT 220 10^3/uL (130-400); RED CELL DISTRIBUTION WIDTH 13.7 % (10.0-14.5)
[2019-11-24 10:26] LABS: EOSINOPHILS # (AUTO) 0.3 10^3/uL (0.0-0.3); LYMPHOCYTES # (AUTO) 1.3 X 10^3 (1.0-4.0); MONOCYTES # (AUTO) 0.5 X 10^3 (0.0-1.0); NEUTROPHILS # (AUTO) 4.3 X 10^3 (1.8-7.8)
[2019-11-24 10:37] LABS: CARBON DIOXIDE 27 MMOL/L (21-32); CHLORIDE 106 MMOL/L (98-107); POTASSIUM 4.3 MMOL/L (3.6-5.0); SODIUM 141 MMOL/L (135-145)
[2019-11-24 10:38] LABS: ALKALINE PHOSPHATASE 114 U/L (40-136); BILIRUBIN,TOTAL 0.3 MG/DL (0.1-1.0); BUN/CREATININE RATIO 19; CALCIUM 9.2 MG/DL (8.5-10.1); GFR ESTIMATED > 60; GLUCOSE 101 MG/DL (70-105)
[2019-11-24 10:39] LABS: ALANINE AMINOTRANSFERASE 44 U/L (0-55); ALBUMIN 3.9 GM/DL (3.2-4.5); TOTAL PROTEIN 6.9 GM/DL (6.4-8.2)
[2019-11-24 10:52] LABS: BAND NEUTROPHILS 4 %; BASOPHILS % (MANUAL) 1 %; EOSINOPHILS % (MANUAL) 6 %; LYMPHOCYTES % (MANUAL) 33 %; METAMYELOCYTES % 1 %; MONOCYTES % (MANUAL) 3 %; NEUTROPHILS % (MANUAL) 52 %
--- NOTE | 2019-11-24 12:45 | Diagnostic Imaging Report ---
PROCEDURE: CT chest with contrast only. TECHNIQUE: Multiple contiguous axial images were obtained through the chest after administration of intravenous contrast. Auto Exposure Controls were utilized during the CT exam to meet ALARA standards for radiation dose reduction. INDICATION: Lung cancer COMPARISON: 08/04/2019 and 05/27/2019 FINDINGS: Subcarinal lymph node is mildly enlarged, though stable from prior examination measuring near 1.1 cm short dimension. Lower paraesophageal lymph node measuring 8 mm in short dimension appears stable from the prior exam. No new adenopathy. Scattered vascular calcifications without aneurysmal dilatation of thoracic aorta. The heart is within normal limits in size. No pericardial effusion. No pleural effusion. No pneumothorax. Previously noted scattered densities as well as scattered tree-in-bud nodularity and groundglass opacities within the left lung have significantly improved and nearly resolved when compared to the prior examination. Right apical pleural parenchymal scarring. Tree-in-bud nodularity within the medial and superior aspect of the right lower lobe is stable. Previously noted lobulated right lower lobe pulmonary nodule is again identified. This appears slightly more full and prominent than the prior examination, measuring 2.7 x 2.5 cm when previously it measured 2.6 x 2.1 cm when measuring the same plane in dimension. No new discrete pulmonary nodules within the right lung. The trachea is patent. Small hiatal hernia. Cholecystectomy with stable intrahepatic biliary dilatation. Bilateral renal cysts and additional renal hypodensities which are too small to completely characterize. Visualized upper abdomen is otherwise unremarkable and stable. Stimulator leads are seen extending into the mid thoracic spinal canal. Scattered osseous degenerative changes without acute osseous abnormality. IMPRESSION: Previously noted right lower lobe pulmonary nodule appears slightly more prominent than the prior examination. Findings are concerning for interval progression of malignancy. Previously noted mediastinal lymph nodes which are mildly prominent in size are stable from the prior exam without new adenopathy. Significantly improved and nearly resolved groundglass and tree-in-bud nodularity throughout the left lung, favored related to a resolving infectious or inflammatory process. Additional stable findings as described above. Dictated by: Dictated on workstation # [id number]
== END ==
LOC: LAB FS 09:56
PROVIDERS: ATTEND Internal Medicine Hematology & Oncology
DX: C34.2 Malignant neoplasm of middle lobe, bronchus or lung (principal); R91.1 Solitary pulmonary nodule; R59.0 Localized enlarged lymph nodes
CPT/HCPCS: 36415; 71260; 80053; 82378; 85007; 85027

== ENCOUNTER → 2020-01-27 | Outpatient (CLI) | payer MEDICARE, OTHER ==
[~2020-01-27] MED LIST changes: -CATHETER FLUSH 10 ML SYR IV PRN; -IBUP-2186 PO; +IBUP-47 PO; +OXC5T PO; -OXYC5TAB96 PO
[2020-01-27] MEDS: CATHETER FLUSH 10 ML SYR IV PRN (12:32)
--- NOTE | 2020-01-27 14:11 | Diagnostic Imaging Report ---
PROCEDURE: CT left lower extremity with and without contrast. TECHNIQUE: Multiple axial images were obtained through the left lower extremity with and without intravenous contrast. Auto Exposure Controls were utilized during the CT exam to meet ALARA standards for radiation dose reduction. INDICATION: History of lung cancer, left hip mass, and left hip and upper thigh pain. Prior left leg injury with repair. COMPARISON: CT abdomen/pelvis from 11/22/2018. FINDINGS: No acute fracture is seen in the left hip. No focal osseous lesions are seen. There is internal fixation of the femoral neck with 3 screws. No loosening is seen. There is mild deformity of the femoral neck from remote trauma. A metal BB was placed laterally at the area of concern. No underlying masses are seen. There is scarring laterally from a prior procedure and there may be a small fluid collection lateral to the greater trochanter which may be a small post surgical seroma or bursitis measuring 1.8 cm in size (image 35/series 9). No cortical erosion is seen. There are mildly prominent left inguinal lymph nodes. The largest measures 1.4 x 2.6 cm but demonstrates a fatty hilum. There are also prominent left iliac lymph nodes which appear stable since 2019. There is thickening of the urinary bladder wall with a left posterior diverticulum, likely from chronic outlet obstruction. IMPRESSION: 1. Post surgical changes in the proximal left femur with no acute osseous lesion seen. There is scarring lateral to the proximal femur with a small pocket of fluid which may be a small seroma or bursitis. 2. Prominent left inguinal and iliac lymph nodes appear stable compared to 11/22/2018 and may be reactive. Dictated by: Dictated on workstation # [id number]
== END ==
LOC: RAD FS 11:44
PROVIDERS: ATTEND Family Medicine
DX: R22.42 Localized swelling, mass and lump, left lower limb (principal); Z85.118 Personal history of other malignant neoplasm of bronchus and lung; Z98.890 Other specified postprocedural states
CPT/HCPCS: 73702

== ENCOUNTER 2020-03-08 19:45 | Emergency (ER) | payer MEDICARE, OTHER ==
[~2020-03-08] VITALS: Ht 182.9 cm; Wt 74.8 kg
[~2020-03-08 19:45] MED LIST changes: +AMLO-251 PO; -AMLO10TA7 PO; -HOLD METFORMIN - RECEIVED CONTRAST 20 ML VIAL IV SCH; -IOHEXOL 350 MG/ML 100 ML (OMNIPAQUE 350) VIAL IV ONE; -NS 100 ML (IVPB) BAG IV ONE
[2020-03-08] MEDS ORDERED: NS IV 500 ML 500 ML IV STA (19:50)
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
[2020-03-08 20:05] LABS: HEMATOCRIT 39 % (40-54); HEMOGLOBIN 12.8 G/DL (13.3-17.7); MEAN CORPUSCULAR HEMOGLOBIN 29 PG (25-34); WHITE BLOOD COUNT 12.2 10^3/uL (4.3-11.0)
[2020-03-08 20:06] LABS: BASOPHILS # (AUTO) 0.1 10^3/uL (0.0-0.1); BASOPHILS % (AUTO) 0 % (0-10); EOSINOPHILS # (AUTO) 0.2 10^3/uL (0.0-0.3); EOSINOPHILS % (AUTO) 1 % (0-10); LYMPHOCYTES # (AUTO) 1.4 X 10^3 (1.0-4.0); LYMPHOCYTES % (AUTO) 12 % (12-44); MEAN CORPUSCULAR HGB CONC 33 G/DL (32-36); MEAN CORPUSCULAR VOLUME 88 FL (80-99); MEAN PLATELET VOLUME 10.8 FL (7.4-10.4); MONOCYTES # (AUTO) 0.6 X 10^3 (0.0-1.0); MONOCYTES % (AUTO) 5 % (0-12); NEUTROPHILS # (AUTO) 9.9 X 10^3 (1.8-7.8); NEUTROPHILS % (AUTO) 81 % (42-75); PLATELET COUNT 245 10^3/uL (130-400)
[2020-03-08 20:18] LABS: BILIRUBIN,URINE NEGATIVE (NEGATIVE); CLARITY,URINE CLEAR; COLOR,URINE YELLOW; GLUCOSE, URINE (UA) NEGATIVE (NEGATIVE); KETONES,URINE 2+ (NEGATIVE); LEUKOCYTE ESTERASE ,URINE TRACE (NEGATIVE); NITRITE,URINE NEGATIVE (NEGATIVE); PROTEIN,URINE TRACE (NEGATIVE)
[2020-03-08 20:19] LABS: BACTERIA,URINE TRACE /HPF
[2020-03-08 20:21] LABS: ALANINE AMINOTRANSFERASE 12 U/L (0-55); ALBUMIN 3.7 GM/DL (3.2-4.5); ALKALINE PHOSPHATASE 105 U/L (40-136); BILIRUBIN,TOTAL 0.7 MG/DL (0.1-1.0); BUN/CREATININE RATIO 21; CALCIUM 9.1 MG/DL (8.5-10.1); CARBON DIOXIDE 24 MMOL/L (21-32); CHLORIDE 102 MMOL/L (98-107); CREATININE SERUM 0.56 MG/DL (0.60-1.30); GFR ESTIMATED > 60; GLUCOSE 126 MG/DL (70-105); POTASSIUM 3.5 MMOL/L (3.6-5.0); SODIUM 136 MMOL/L (135-145); TOTAL PROTEIN 7.2 GM/DL (6.4-8.2)
[2020-03-08 20:24] LABS: AMPHETAMINE SCREEN, URINE NEGATIVE (NEGATIVE); BARBITURATE SCREEN URINE NEGATIVE (NEGATIVE); BENZODIAZEPINES SCREEN URINE NEGATIVE (NEGATIVE); CANNABINOID SCREEN, URINE NEGATIVE (NEGATIVE); COCAINE SCREEN URINE NEGATIVE (NEGATIVE); METHADONE STAT NEGATIVE (NEGATIVE); METHAMPHETAMINE SCREEN URINE S NEGATIVE (NEGATIVE); OPIATE SCREEN URINE NEGATIVE (NEGATIVE); OXYCODONE STAT POSITIVE (NEGATIVE); PROPOXYPHENE STAT NEGATIVE (NEGATIVE); TRICYCLIC ANTIDEPRESSANTS SCRE NEGATIVE (NEGATIVE)
--- NOTE | 2020-03-08 20:27 | Diagnostic Imaging Report ---
INDICATION: Vomiting x2 days. TECHNIQUE: Supine and upright view of the abdomen 8:08 PM CORRELATION STUDY: None FINDINGS: Prior extensive lumbar spinal fixation hardware is present. A thoracic spine stimulator is noted. There are gas-filled loops of bowel, including small bowel and gas through the colon. Gas at the level of the rectum. Mild severity fecal retention. A few air-fluid levels. No gross free intraperitoneal air. Additional hardware over the left proximal femur. Cholecystectomy clips in right upper quadrant. IMPRESSION: 1. Gas-filled loops of bowel with a few air-fluid levels, favored probable ileus. No findings to suggest high degree obstruction or evidence for fecal impaction. Dictated by: Dictated on workstation # [id number]
[2020-03-08] MEDS ORDERED: ONDANSETRON 4 MG/2 ML (SDV) Z0FRAN ONE (20:44)
[2020-03-08] MEDS ORDERED: ONDANSETRON 4 MG/2 ML (SDV) Z0FRAN IVP ONE (20:45)
[2020-03-08] MEDS ORDERED: ONDA4TAB11 PO (20:49)
--- NOTE | 2020-03-08 21:16 | NUR ---
THIS RN SPOKE WITH PT'S DAUGHER AND SON GIVING THEM UPDATES. FAMILY STATES THAT THEY FEEL LIKE THE PT SHOULD BE TESTED FOR THE COVID19. FAMILY WAS INFORMED THAT THE PT WAS NOT SCREENED FOR COVID19. DAUGHTER STATES THAT SHE LIVES 4 HOURS AWAY AND CANNOT PICK PT UP AND THAT SHE WILL ATTEMPT TO CONTACT THE CAREGIVER. PT'S SON STATES THAT HE WILL ATTEMPT TO CONTACT PT'S FRIEND AND SEE IF FRIEND WILL PICK PT UP.
--- NOTE | 2020-03-08 21:39 | NUR ---
PT'S SON CALLED AND STATES THAT PT'S FRIEND IS UNAVAILABLE TO COME PICK THE PT UP AT THIS TIME.
--- NOTE | 2020-03-08 21:43 | NUR ---
ATTEMPT TO CALL ANOTHER FAMILY FRIEND. FRIEND DID NOT ANSWER PHONE. VOICE MESSAGE LEFT ASKING FOR RETURN PHONE CALL.
--- NOTE | 2020-03-08 21:54 | NUR ---
PT ATTEMPTING TO CALL ANOTHER FRIEND FOR A RIDE HOME.
--- NOTE | 2020-03-08 22:06 | NUR ---
PT FRIEND WAS CONTACTED AND SHE STATES THAT SHE WILL PICK PT UP. ETA APPROX 15MINS
[2020-03-08 23:20] VITALS: BP 161/79
== END 2020-03-08 23:20 | disposition home or self-care (01) ==
LOC: EDUNIT# 19:45 → ER FS 19:46
DX: K59.00 Constipation, unspecified (principal); R11.2 Nausea with vomiting, unspecified; G89.29 Other chronic pain; M54.9 Dorsalgia, unspecified; I10 Essential (primary) hypertension; J44.9 Chronic obstructive pulmonary disease, unspecified; Z82.61 Family history of arthritis; Z80.0 Family history of malignant neoplasm of digestive organs; Z82.49 Family history of ischemic heart disease and other diseases of the circulatory system; Z85.118 Personal history of other malignant neoplasm of bronchus and lung; Z87.820 Personal history of traumatic brain injury; Z87.891 Personal history of nicotine dependence; Z88.8 Allergy status to other drugs, medicaments and biological substances
CPT/HCPCS: 36415; 74019; 80053; 80306; 81000; 85025; 87088

== ENCOUNTER → 2020-03-15 | Outpatient (CLI) | payer MEDICARE, OTHER ==
[~2020-03-15] MED LIST changes: +CATHETER FLUSH 10 ML SYR IV PRN; +HOLD METFORMIN - RECEIVED CONTRAST 20 ML VIAL IV SCH; +IOHEXOL 350 MG/ML 100 ML (OMNIPAQUE 350) VIAL IV ONE; +NS 100 ML (IVPB) BAG IV ONE
[2020-03-15 09:30] LABS: HEMATOCRIT 38 % (40-54); HEMOGLOBIN 12.2 G/DL (13.3-17.7); MEAN CORPUSCULAR HEMOGLOBIN 29 PG (25-34); MEAN CORPUSCULAR HGB CONC 32 G/DL (32-36); MEAN CORPUSCULAR VOLUME 89 FL (80-99); MEAN PLATELET VOLUME 10.5 FL (7.4-10.4); NEUTROPHILS % (AUTO) 62 % (42-75); PLATELET COUNT 335 10^3/uL (130-400)
[2020-03-15 09:31] LABS: BASOPHILS % (AUTO) 0 % (0-10); EOSINOPHILS # (AUTO) 0.5 10^3/uL (0.0-0.3); EOSINOPHILS % (AUTO) 7 % (0-10); LYMPHOCYTES # (AUTO) 1.6 X 10^3 (1.0-4.0); LYMPHOCYTES % (AUTO) 23 % (12-44); MONOCYTES # (AUTO) 0.5 X 10^3 (0.0-1.0); MONOCYTES % (AUTO) 7 % (0-12); NEUTROPHILS # (AUTO) 4.3 X 10^3 (1.8-7.8)
[2020-03-15 09:43] LABS: CHLORIDE 104 MMOL/L (98-107); POTASSIUM 3.9 MMOL/L (3.6-5.0); SODIUM 138 MMOL/L (135-145)
[2020-03-15 09:44] LABS: ALANINE AMINOTRANSFERASE 14 U/L (0-55); ALKALINE PHOSPHATASE 106 U/L (40-136); BILIRUBIN,TOTAL 0.3 MG/DL (0.1-1.0); BUN/CREATININE RATIO 12; CARBON DIOXIDE 24 MMOL/L (21-32); CREATININE SERUM 0.78 MG/DL (0.60-1.30); GFR ESTIMATED > 60; GLUCOSE 121 MG/DL (70-105); TOTAL PROTEIN 7.1 GM/DL (6.4-8.2)
[2020-03-15 09:57] LABS: BAND NEUTROPHILS 6 %; BASOPHILS % (MANUAL) 0 %; EOSINOPHILS % (MANUAL) 6 %; LYMPHOCYTES % (MANUAL) 22 %; MONOCYTES % (MANUAL) 8 %; NEUTROPHILS % (MANUAL) 58 %; RBC MORPH NORMAL
--- NOTE | 2020-03-15 10:31 | Diagnostic Imaging Report ---
PROCEDURE: CT chest with contrast only. TECHNIQUE: Multiple contiguous axial images were obtained through the chest after administration of intravenous contrast. Auto Exposure Controls were utilized during the CT exam to meet ALARA standards for radiation dose reduction. DATE: March 15, 2020. COMPARISON: CT chest November 24, 2019. INDICATION: 79-year-old male, history of lung cancer. FINDINGS: There is tree-in-bud nodularity in the right upper lobe on axial image 67 and adjacent sequential images. There is abnormal mass-like opacification in the right lower lobe on axial image 99 measuring 3.6 x 1.9 cm in size. This previously measured approximately 3.2 x 2.7 cm in size. There are reticulonodular opacities in the superior aspect of the right lower lobe which are unchanged. There is pleural parenchymal scarring on the right with an unchanged appearance since the comparison study. There is a noncalcified left upper lobe pulmonary nodule on axial image 77 which measures 9 mm in size which is new. There is very subtle reticular nodularity present in the left upper lobe which is also seen on the comparison exam. This is also present in the left lower lobe and does appear fairly similar to the prior study in this location as well. There is no pneumothorax. There is no pleural effusion. There is nondiagnostic assessment for pulmonary embolus given the timing of the contrast bolus. The heart is not enlarged. There is no pericardial effusion. There are atherosclerotic calcifications. There is a subcarinal lymph node on axial image 78 measuring 10 mm in short axis which is unchanged. There is no identified abnormal mediastinal or hilar lymph node specifically meeting CT size criteria for adenopathy. There is no abnormally enlarged axillary lymph node. There is a small hiatal hernia. The patient is status post cholecystectomy. There is a low-attenuation right renal lesion on axial image 179 measuring 3.3 cm in size, compatible with a benign cyst. There is an additional benign left renal cyst on axial image 158 which measures up to 7.2 cm in size. There is an additional smaller left renal cyst on axial image 181. There are multilevel advanced degenerative changes of the spine. There are leads present in the spinal canal. There are chronic appearing right sided rib deformities. There is a chronic appearing deformity of the right scapula. There are glenohumeral arthritic changes, left greater than right. IMPRESSION: 1. Right lower lobe mass-like consolidation currently measuring 3.6 x 1.9 cm in size which previously measured 3.2 x 2.7 cm in size. This is not convincingly larger in size since November 24, 2019 and also not convincingly smaller. 2. New 9 mm left upper lobe pulmonary nodule, concerning for potential malignancy. 3. Multifocal areas of reticular nodularity with a fairly similar appearance to November 24, 2019. This likely relates to a process spreading via endobronchial means which is most typically an infectious bronchiolitis or aspiration. This appears to be chronic. Dictated by: Dictated on workstation # [id number]
== END ==
LOC: RAD FS 09:04
PROVIDERS: ATTEND Internal Medicine Hematology & Oncology
DX: C34.2 Malignant neoplasm of middle lobe, bronchus or lung (principal); J18.1 Lobar pneumonia, unspecified organism; R91.8 Other nonspecific abnormal finding of lung field
CPT/HCPCS: 36415; 71260; 80053; 82378; 85007; 85027

== ENCOUNTER 2020-05-19 12:41 | Emergency (ER) | payer MEDICARE, OTHER ==
[~2020-05-19] VITALS: Ht 182.8 cm; Wt 68.1 kg
[~2020-05-19 12:41] MED LIST changes: -CATHETER FLUSH 10 ML SYR IV PRN; -CLIN300C11 PO; +CLIN300C12 PO; -HOLD METFORMIN - RECEIVED CONTRAST 20 ML VIAL IV SCH; -IOHEXOL 350 MG/ML 100 ML (OMNIPAQUE 350) VIAL IV ONE; -NS 100 ML (IVPB) BAG IV ONE
--- NOTE | 2020-05-19 12:45 | NUR ---
Patient arrived in a depnds with soilded clothing of urine laying beside patient. EMS assisted patient at residence as he had no pants on. Pt is [place] and alert. Poor historian. Pt continues to make reference of getting sick after eating a hamburger yesterday evening. EMS have been in the home for other calls in past with home malodorous and then noting the home with emesis on things and urine.
[2020-05-19] MEDS ORDERED: NS IV 1000 ML 1,000 ML IV STA (12:56)
[2020-05-19] MEDS ORDERED: ONDANSETRON 4 MG/2 ML (SDV) Z0FRAN IVP STA (12:56)
--- NOTE | 2020-05-19 13:02 | ED General ---
General Chief Complaint: General Problems/Pain Stated Complaint: GEN WEAKNESS Source of Information: Patient, EMS, Old Records History of Present Illness Date Seen by Provider: May 19, 2020 Time Seen by Provider: 12:41 Initial Comments 79-year-old male presenting via EMS from home. He lives by himself. He complains of generalized weakness with nausea and vomiting. He also is having some diffuse vague abdominal pain. He had told EMS that he was too weak to get up out of the chair. He was covered in urine. He denies any fever or chills. He states he was able to keep his chemotherapy drug down for his lung cancer. He thinks that this may be related to some hamburger that he made 2 nights ago. Allergies and Home Medications Allergies Coded Allergies: baclofen (Verified Allergy, Unknown, 11/24/18) metoclopramide (Verified Allergy, Unknown, 11/24/18) Home Medications Afatinib Dimaleate 30 Mg Tablet, 30 MG PO DAILY, (Reported) TAKES 1ST THING IN THE MORNING Amlodipine Besylate 10 Mg Tablet, 10 MG PO DAILY, (Reported) Ascorbic Acid 500 Mg Tablet, 500 MG PO DAILY, (Reported) Carboxymethylcellulose Sodium 15 Ml Drops, 1 DROP OD Q2H, (Reported) Fentanyl 1 Each Patch.td72, 100 MCG TD Q72H, (Reported) LAST TIME PATCH WAS APPLIED WAS 02-23-2019 BEFORE HOSPITALIZATION Fluticasone Propionate 16 Gm Waldron.susp, 1 SPRAY NSEACH DAILY, (Reported) Gabapentin 300 Mg Capsule, 600 MG PO TID, (Reported) TAKES 2 (300MG) CAPSULES Loratadine 10 Mg Tablet, 10 MG PO DAILY, (Reported) Mineral Oil/Petrolatum,White 3.5 Gm Oint...g., OD HS, (Reported) Multivitamin 1 Each Tablet, 1 TAB PO DAILY, (Reported) Omeprazole 20 Mg Capsule.dr, 20 MG PO DAILY, (Reported) Ondansetron 4 Mg Tab.rapdis, 4 MG PO Q8H PRN for NAUSEA/VOMITING-1ST LINE, (Reported) Oxycodone Hcl 5 Mg Tablet, 5 MG PO Q6H PRN for PAIN-SEVERE, (Reported) Paroxetine HCl 20 Mg Tablet, 20 MG PO DAILY, (Reported) Potassium Chloride 10 Meq Tab.er.prt, 10 MEQ PO BID, (Reported) TAKES 2 (10MEQ) TABLETS Tamsulosin HCl 0.4 Mg Cap, 0.4 MG PO DAILY, (Reported) Umeclidinium Brm/Vilanterol Tr 1 Each Blst.w.dev, 1 PUFF IH DAILY, (Reported) Patient Home Medication List Home Medication List Reviewed: Yes Review of Systems Review of Systems Constitutional: No chills, No fever; malaise, weakness (general) EENTM: hearing loss (chronic), ear pain; No ear discharge Respiratory: no symptoms reported Cardiovascular: no symptoms reported Gastrointestinal: see HPI, abdominal pain (vague diffuse); No diarrhea; nausea, vomiting Genitourinary: incontinence (sitting in his own urine when EMS arrived to transport him to ED) Musculoskeletal: no symptoms reported Psychiatric/Neurological: Weakness (general) Past Taihmso-Czznyp-Vcimzg Hx Past Med/Social Hx: Reviewed Nursing Past Med/Soc Hx Patient Social History Alcohol Beverage of Choice: Beer, Whiskey Type Used: Cigarettes Former Smoker, Quit: Apr 23, 1969 2nd Hand Smoke Exposure: No Recent Hopitalizations: No Immunizations Up To Date Tetanus Booster (TDap): Unknown PED Vaccines UTD: Yes Date of Pneumonia Vaccine: Feb 04, 2016 Date of Influenza Vaccine: Jan 09, 2018 Seasonal Allergies Seasonal Allergies: Yes Past Medical History Surgeries: Yes (Past hx of Suprapubic catheter, L TKR, Neuro stimulator placed and removed) Eye Surgery, Gallbladder, Joint Replacement, Orthopedic Respiratory: Yes (has home 02, has only used once in 2 years) Pneumonia, COPD Currently Using CPAP: No Currently Using BIPAP: No Cardiac: Yes Hypertension Neurological: Yes Concussion, Neuropathy, Traumatic Brain Injury Genitourinary: Yes (urinary incontinence, past hx of Suprapubic catheter, prostate problems) Prostate Problems, UTI-Chronic Gastrointestinal: Yes (on Iron replacement, Hx of abnormal LFT's) Abdominal Hernia, Gastrointestinal Bleed Musculoskeletal: Yes (chronic pain lower ext from trauma, run over by a tractor) Arthritis, Back Injury, Chronic Back Pain Endocrine: No HEENT: Yes (dry eyes, doesn't make tears) Loss of Vision: Right Hearing Impairment: Hard of Hearing, Hearing Aide Right, 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 Did You Recieve Any Treatments: Yes What Type of Treatment Did You: Chemotherapy Psychosocial: No Integumentary: Yes (thin/frail skin, scattered ecchymosis) Recent Skin Changes Blood Disorders: No Adverse Reaction/Blood Tranf: No Family Medical History Arthritis Colon cancer Coronary thrombosis Hypertension Myocardial infarction Respiratory disorder Heart Disease, Cancer, Hypertension Physical Exam Vital Signs Vital Signs - First Documented 05/19/20 12:45 Temp 36.4 Pulse 79 Resp 16 B/P (MAP) 155/65 (95) O2 Delivery Room Air Capillary Refill : Height, Weight, BMI Height: 5'11.00" Weight: 165lbs. 8.0oz. [id number]; 22.00 BMI Method:Stated General Appearance: No Apparent Distress, Cachetic HEENT: PERRL/EOMI; No Moist Mucous Membranes (slightly dry); Other (TM mild dullness bilateral but have fluid in middle ear area. No erythema) Neck: Full Range of Motion, Supple Respiratory: Chest Non Tender, No Accessory Muscle Use, No Respiratory Distress, Decreased Breath Sounds Cardiovascular: Regular Rate, Rhythm, Normal Peripheral Pulses Gastrointestinal: Normal Bowel Sounds, No Pulsatile Mass, Soft; No Distended, No Guarding, No Rebound; Tenderness (mild diffuse tenderness) Rectal: Deferred Extremity: Normal Capillary Refill, No Pedal Edema Neurologic/Psychiatric: Alert Skin: Warm/Dry, Erythema (buttocks area) Focused Exam Lactate Level 05/19/20 12:53: Lactic Acid Level 1.74 Lactic Acid Level Progress/Results/Core Measures Suspected Sepsis SIRS Temperature: Pulse: Respiratory Rate: Laboratory Tests 05/19/20 12:53: White Blood Count 12.8H Blood Pressure / Mean: 05/19/20 12:53: Lactic Acid Level 1.74 Laboratory Tests 05/19/20 12:53: Creatinine 0.34L, Platelet Count 291, Total Bilirubin 0.6 Results/Orders Lab Results Laboratory Tests Test 05/19/20 12:53 05/19/20 13:24 Range/Units White Blood Count 12.8 H 4.3-11.0 10^3/uL Red Blood Count 4.56 4.35-5.85 10^6/uL Hemoglobin 12.7 L 13.3-17.7 G/DL Hematocrit 40 40-54 % Mean Corpuscular Volume 89 80-99 FL Mean Corpuscular Hemoglobin 28 25-34 PG Mean Corpuscular Hemoglobin Concent 31 L 32-36 G/DL Red Cell Distribution Width 13.8 10.0-14.5 % Platelet Count 291 130-400 10^3/uL Mean Platelet Volume 11.1 H 7.4-10.4 FL Immature Granulocyte % (Auto) 1 % Neutrophils (%) (Auto) 85 H 42-75 % Lymphocytes (%) (Auto) 8 L 12-44 % Monocytes (%) (Auto) 6 0-12 % Eosinophils (%) (Auto) 0 0-10 % Basophils (%) (Auto) 0 0-10 % Neutrophils # (Auto) 10.8 H 1.8-7.8 X 10^3 Lymphocytes # (Auto) 1.1 1.0-4.0 X 10^3 Monocytes # (Auto) 0.7 0.0-1.0 X 10^3 Eosinophils # (Auto) 0.0 0.0-0.3 10^3/uL Basophils # (Auto) 0.0 0.0-0.1 10^3/uL Immature Granulocyte # (Auto) 0.1 0.0-0.1 10^3/uL Sodium Level 141 135-145 MMOL/L Potassium Level 2.6 L 3.6-5.0 MMOL/L Chloride Level 109 H 98-107 MMOL/L Carbon Dioxide Level 22 21-32 MMOL/L Anion Gap 10 5-14 MMOL/L Blood Urea Nitrogen 12 7-18 MG/DL Creatinine 0.34 L 0.60-1.30 MG/DL Estimat Glomerular Filtration Rate > 60 BUN/Creatinine Ratio 35 Glucose Level 106 H 70-105 MG/DL Lactic Acid Level 1.74 0.50-2.00 MMOL/L Calcium Level 6.8 L 8.5-10.1 MG/DL Corrected Calcium 8.0 L 8.5-10.1 MG/DL Total Bilirubin 0.6 0.1-1.0 MG/DL Aspartate Amino Transf (AST/SGOT) 16 5-34 U/L Alanine Aminotransferase (ALT/SGPT) 9 0-55 U/L Alkaline Phosphatase 77 40-136 U/L Troponin I < 0.30 <0.30 NG/ML Pro-B-Type Natriuretic Peptide 2979.0 H <75.0 PG/ML Total Protein 5.3 L 6.4-8.2 GM/DL Albumin 2.5 L 3.2-4.5 GM/DL Lipase 11 8-78 U/L Urine Color DARK YELLOW Urine Clarity CLEAR Urine pH 7.5 5-9 Urine Specific [place] 1.020 1.016-1.022 Urine Protein 1+ H NEGATIVE Urine Glucose (UA) NEGATIVE NEGATIVE Urine Ketones 2+ H NEGATIVE Urine Nitrite NEGATIVE NEGATIVE Urine Bilirubin 1+ H NEGATIVE Urine Urobilinogen >=8.0 < = 1.0 MG/DL Urine Leukocyte Esterase NEGATIVE NEGATIVE Urine RBC (Auto) 1+ H NEGATIVE Urine RBC 25-50 H /HPF Urine WBC 0-2 /HPF Urine Squamous Epithelial Cells RARE /HPF Urine Renal Epithelial Cells 5-10 /HPF Urine Crystals NONE /LPF Urine Bacteria NEGATIVE /HPF Urine Casts NONE /LPF Urine Mucus NEGATIVE /LPF Urine Culture Indicated NO My Orders Orders - IMMANUEL GARCIA MD Comprehensive Metabolic Panel (05/19/20 12:53) Lipase (05/19/20 12:53) Ua Culture If Indicated (05/19/20 12:53) Ed Iv/Invasive Line Start (05/19/20 12:53) Cbc With Automated Diff (05/19/20 12:53) Ct Abdomen/Pelvis W (05/19/20 12:53) Monitor-Rhythm Ecg Trace Only (05/19/20 12:53) Ekg Tracing (05/19/20 12:53) Troponin I Fs (05/19/20 12:53) Probnp Fs (05/19/20 12:53) Ns Iv 1000 Ml (Sodium Chloride 0.9%) (05/19/20 12:56) Ondansetron Injection (Zofran Injectio (05/19/20 12:56) Lactic Acid Analyzer (05/19/20 13:04) Iohexol Injection (Omnipaque 350 Mg/Ml 1 (05/19/20 14:15) Received Contrast (Hold Metformin- Contr (05/19/20 14:15) Sodium Chloride Flush (Catheter Flush Sy (05/19/20 14:15) Ns (Ivpb) (Sodium Chloride 0.9% Ivpb Bag (05/19/20 14:15) Potassium Chloride (Tablet) (K Dur Table (05/19/20 14:30) Potassium Cl 10meq/50ml Ivpb (Kcl 10 Meq (05/19/20 14:30) Ns Iv 500 Ml (Sodium Chloride 0.9%) (05/19/20 14:30) Medications Given in ED Current Medications Medications Dose Ordered Sig/Nunu Route Start Time Stop Time Status Last Admin Dose Admin Iohexol 100 ml ONCE ONCE IV 05/19/20 14:15 05/19/20 14:16 DC 05/19/20 14:41 100 ML Potassium Chloride 40 meq ONCE ONCE PO 05/19/20 14:30 05/19/20 14:31 DC 05/19/20 14:53 40 MEQ Potassium Chloride 50 ml @ 50 mls/hr ONCE ONCE IV 05/19/20 14:30 05/19/20 15:29 DC 05/19/20 14:53 50 MLS/HR Sodium Chloride 10 ml NEEDED PRN IV 05/19/20 14:15 05/19/20 14:41 10 ML Sodium Chloride 100 ml ONCE ONCE IV 05/19/20 14:15 05/19/20 14:16 DC 05/19/20 14:41 80 ML Vital Signs/I&O 05/19/20 12:45 Temp 36.4 Pulse 79 Resp 16 B/P (MAP) 155/65 (95) O2 Delivery Room Air Capillary Refill : Progress Note #1: Progress Note obtain basic labs, ECG, CT abd/pelvis to evaluate for possible obstruction, constipation, pancreatitis, diverticulitis, colitis. Give IVF with Zofran for hi s symptoms of nausea/vomiting. When his nurse spoke with one of his daughters, she reported that he told her he had been sick every night from eating hamburger since the weekend. Unclear if he was eating the same hamburger on repeated nights, despite it making him sick or if he was using that as an excuse. Pt could not specify when asking him about eating hamburger and he was getting confused on the days. Progress Note #2: Progress Note Labs shows hypokalemia with a potassium of 2.6. His lactic acid is not elevated at 1.74. His corrected calcium is 8. His urine shows some blood from being in a catheter specimen but no sign of infection. CT scan does not demonstrate any acute obstruction or blockage. His bladder wall is thickened but no lymphadenopathy in surrounding area or in abdomen. He tolerated oral potassium and has been tolerating oral intake here in the ED. He did express to nursing staff that he would be interested in going to a senior living as he felt like he was having trouble caring for himself at home. Will advise him to check with Dr. Paredes and with his family about options for senior living care. At this point there is no acute medical reason for admission to the hospital. A senior living or rehab center would be helpful for him to ensure that he is taking his medications and eating safe meals that are not making him sick. Progress Note #3: Progress Note He was unable to stand and walk when trying to transfer to clean bed as he was sitting in urine soaked clothes and sheets on arrival. Also when tried to help with transfer to take him to radiology for imaging he again was grabbing at staff and things around him and was unable to walk or stand steadily on his own. Patient asking about going to [facility] or facility for rehab and strengthening. He reports being at [facility] previously for Rehab after pneumonia. 1618 pt complained of soreness with swallowing in his throat and there is mild erythema but with his recurrent vomiting at home this is likely the source. Also complains of soreness to buttocks/coccyx from redness and area where he has been sitting without moving a lot and sitting in his own urine/excrement. Awaiting Emergency Admit forms from Dr. Paredes for [facility] to be able to admit pt but he states he would be willing to check with other facilities for Rehab/strengthening. Progress Note #4: Progress Note He was accepted as an emergency admit for rehab, pt/ot eval, less than 30 day admit at [place]. ECG Initial ECG Impression Date: May 19, 2020 Initial ECG Impression Time: 12:55 Initial ECG Rate: 79 Initial ECG Rhythm: Normal Sinus Initial ECG Comparisson: Unchanged Comment Sinus rhythm with a heart rate of 79 bpm. AK interval 54 ms for short AK interval. QT interval 394 ms with a QTc interval of 452 ms. There is no acute ST elevation. This appears similar to prior tracings in the system. Diagnostic Imaging Diagonstic Imaging: CT Plain Films/CT/US/NM/MRI: abdomen, pelvis Comments NAME: NOY [facility] MED REC#: [id number] PT STATUS: REG ER : 1940 PHYSICIAN: IMMANUEL GARCIA MD ADMIT DATE: 05/19/20/ER FS Draft Date of Exam:05/19/20 CT ABDOMEN/PELVIS W PROCEDURE: CT abdomen and pelvis with contrast. TECHNIQUE: Multiple contiguous axial images were obtained through the abdomen and pelvis after administration of intravenous contrast. Auto Exposure Controls were utilized during the CT exam to meet ALARA standards for radiation dose reduction. All CT scans use one or more of the following dose optimizing techniques: automated exposure control, MA and/or KvP adjustment based on patient size and exam type or iterative reconstruction. INDICATION: Nausea and vomiting. Patient has history of lung cancer. COMPARISON: Correlation is made with prior CT abdomen and pelvis study from 11/22/2018. FINDINGS: The lung bases again demonstrate known parenchymal density in the right lower lobe only partially included on this study but seen on prior CT chest from 03/15/2020. No discrete liver mass is identified. Gallbladder is surgically absent. There is some prominence of the intrahepatic and extrahepatic bile ducts, likely owing to postcholecystectomy. Pancreas and spleen are unremarkable. No adrenal mass is detected. Kidneys contain large low-attenuation lesions consistent with cysts. There is no hydronephrosis. Aorta is partially calcified but nonaneurysmal. No central retroperitoneal or mesenteric lymphadenopathy is seen. Small and large bowel loops are normal caliber. There is no obstruction. There is no free fluid or fluid collection. There is some bladder wall thickening anteriorly, similar to prior exam. Prostate is enlarged. No pelvic lymphadenopathy is identified. Postoperative changes of left hip as well as lumbosacral spine is noted. IMPRESSION: 1. Bilateral renal cysts. 2. Bladder wall thickening anteriorly. While this could be owing to cystitis, bladder neoplasm could not be entirely excluded. 3. No abdominal or pelvic lymphadenopathy is detected. Dictated on workstation # [id number] Dict: 05/19/20 1511 Trans: 05/19/20 1517 [facility] [id number] Interpreted by: DAVONTE GARRETT MD Electronically signed by: Departure Impression Primary Impression: Hypokalemia Additional Impressions: Nausea and vomiting Qualified Codes: R11.14 - Bilious vomiting Generalized weakness Decubitus ulcer of coccygeal region, stage 1 Disposition: 03 XFER SNF Condition: Stable Departure-Patient Inst. Decision time for Depature: 15:38 Referrals: SADIA PAREDES MD (PCP/Family) Primary Care Physician Patient Instructions: Nausea and Vomiting, Adult ED, Weakness ED, Hypokalemia (DC), High Potassium Diet Add. Discharge Instructions: Increase the potassium in your diet. Try drinking electrolyte drinks and nutrition shakes with protein to help with nutrition and dietary intake. Check with Dr. Paredes and the clinic about [facility] for [facility] care. All discharge instructions reviewed with patient and/or family. Voiced understanding. IMMANUEL GARCIA MD May 19, 2020 13:02
[2020-05-19 13:32] LABS: BASOPHILS % (AUTO) 0 % (0-10); EOSINOPHILS % (AUTO) 0 % (0-10); HEMATOCRIT 40 % (40-54); HEMOGLOBIN 12.7 G/DL (13.3-17.7); LYMPHOCYTES # (AUTO) 1.1 X 10^3 (1.0-4.0); LYMPHOCYTES % (AUTO) 8 % (12-44); MEAN CORPUSCULAR HEMOGLOBIN 28 PG (25-34); MEAN CORPUSCULAR HGB CONC 31 G/DL (32-36); MEAN CORPUSCULAR VOLUME 89 FL (80-99); MEAN PLATELET VOLUME 11.1 FL (7.4-10.4); MONOCYTES % (AUTO) 6 % (0-12); NEUTROPHILS # (AUTO) 10.8 X 10^3 (1.8-7.8); NEUTROPHILS % (AUTO) 85 % (42-75); PLATELET COUNT 291 10^3/uL (130-400); WHITE BLOOD COUNT 12.8 10^3/uL (4.3-11.0)
[2020-05-19 13:33] LABS: MONOCYTES # (AUTO) 0.7 X 10^3 (0.0-1.0)
[2020-05-19 13:56] LABS: ALANINE AMINOTRANSFERASE 9 U/L (0-55); ALKALINE PHOSPHATASE 77 U/L (40-136); BILIRUBIN,TOTAL 0.6 MG/DL (0.1-1.0); BUN/CREATININE RATIO 35; CALCIUM 6.8 MG/DL (8.5-10.1); CARBON DIOXIDE 22 MMOL/L (21-32); CHLORIDE 109 MMOL/L (98-107); CREATININE SERUM 0.34 MG/DL (0.60-1.30); GFR ESTIMATED > 60; GLUCOSE 106 MG/DL (70-105); POTASSIUM 2.6 MMOL/L (3.6-5.0); SODIUM 141 MMOL/L (135-145); TOTAL PROTEIN 5.3 GM/DL (6.4-8.2)
[2020-05-19 13:57] LABS: ALBUMIN 2.5 GM/DL (3.2-4.5)
[2020-05-19 14:07] LABS: CLARITY,URINE CLEAR
[2020-05-19 14:08] LABS: BILIRUBIN,URINE 1+ (NEGATIVE); COLOR,URINE DARK YELLOW; GLUCOSE, URINE (UA) NEGATIVE (NEGATIVE); KETONES,URINE 2+ (NEGATIVE); LEUKOCYTE ESTERASE ,URINE NEGATIVE (NEGATIVE); NITRITE,URINE NEGATIVE (NEGATIVE); PH,URINE 7.5 (5-9); PROTEIN,URINE 1+ (NEGATIVE); RBC,URINE 25-50 /HPF; WBC,URINE 0-2 /HPF
[2020-05-19 14:09] LABS: BACTERIA,URINE NEGATIVE /HPF; SQUAMOUS EPITHELIAL CELL,UR RARE /HPF
[2020-05-19 14:10] LABS: LIPASE 11 U/L (8-78)
[2020-05-19] MEDS ORDERED: CATHETER FLUSH 10 ML SYR IV PRN (14:15)
[2020-05-19] MEDS ORDERED: IOHEXOL 350 MG/ML 100 ML (OMNIPAQUE 350) VIAL IV ONE (14:15)
[2020-05-19] MEDS ORDERED: NS 100 ML (IVPB) BAG IV ONE (14:15)
[2020-05-19] MEDS ORDERED: HOLD METFORMIN - RECEIVED CONTRAST 20 ML VIAL IV SCH (14:15)
--- NOTE | 2020-05-19 14:20 | NUR ---
Patient pulled IV out and is saturated with IV fluids and incont urine in attends
[2020-05-19] MEDS ORDERED: NS IV 500 ML 500 ML IV SCH (14:30)
[2020-05-19] MEDS ORDERED: POTASSIUM CL 10MEQ/50ML IVPB 50 ML IV ONE (14:30)
[2020-05-19] MEDS ORDERED: KCL 20 MEQ TAB (K-DUR) PO ONE (14:30)
--- NOTE | 2020-05-19 14:40 | NUR ---
Call from Hanna Rose, oldest dgt, calling that a friend to them in [place] alerted her that her dad came to ER and she thought he may have been admitted to [facility] already. Explained nature of the 911 call and the pood history provided by the patient. Pt found in a chair without clothing on and incontinent of urine in chair. EMS report a strong smell of ammonia in the house. Pt states he vomited last night after eating some hamburger. Dgt states he vomited all weekend stating this very thing to him for 3 days of the wknd. Pt is weak, trembling and grasping furniture, staff, or an object just to transfer. Dgt states he has the tremors "like his mother did" but he walks with walker and is always sharper like 2 days after being seen or treated for an illness. Pt has a Fentanyl 100 mcg patch on his Right Upper arm and states it was placed on the and was not oriented to today being 27th. Pt c/o generalized pain from face to feet. Pt reports pain from being run over by a tractor in 2018. Pt has 6 children of which none are local with closest in [facility]. Hanna states she is an RN in Home Care and this is her week to see patients. Pt is a cancer patient with [facility] and continues to take oral medication for treatment.
--- NOTE | 2020-05-19 15:17 | Diagnostic Imaging Report ---
PROCEDURE: CT abdomen and pelvis with contrast. TECHNIQUE: Multiple contiguous axial images were obtained through the abdomen and pelvis after administration of intravenous contrast. Auto Exposure Controls were utilized during the CT exam to meet ALARA standards for radiation dose reduction. All CT scans use one or more of the following dose optimizing techniques: automated exposure control, MA and/or KvP adjustment based on patient size and exam type or iterative reconstruction. INDICATION: Nausea and vomiting. Patient has history of lung cancer. COMPARISON: Correlation is made with prior CT abdomen and pelvis study from 11/22/2018. FINDINGS: The lung bases again demonstrate known parenchymal density in the right lower lobe only partially included on this study but seen on prior CT chest from 03/15/2020. No discrete liver mass is identified. Gallbladder is surgically absent. There is some prominence of the intrahepatic and extrahepatic bile ducts, likely owing to postcholecystectomy. Pancreas and spleen are unremarkable. No adrenal mass is detected. Kidneys contain large low-attenuation lesions consistent with cysts. There is no hydronephrosis. Aorta is partially calcified but nonaneurysmal. No central retroperitoneal or mesenteric lymphadenopathy is seen. Small and large bowel loops are normal caliber. There is no obstruction. There is no free fluid or fluid collection. There is some bladder wall thickening anteriorly, similar to prior exam. Prostate is enlarged. No pelvic lymphadenopathy is identified. Postoperative changes of left hip as well as lumbosacral spine is noted. IMPRESSION: 1. Bilateral renal cysts. 2. Bladder wall thickening anteriorly. While this could be owing to cystitis, bladder neoplasm could not be entirely excluded. 3. No abdominal or pelvic lymphadenopathy is detected. Dictated by: Dictated on workstation # [id number]
[2020-05-19] MEDS ORDERED: ONDA4TAB11 PO (15:37)
[2020-05-19] MEDS ORDERED: POTA-51 PO (15:37)
--- NOTE | 2020-05-19 16:00 | NUR ---
Patient does not feel comfortable going home alone and feels he needs assistance. Requesting admit to [facility]. Dr Avelar states to call to see about emergency placement for P.T. strengthening and safety prevention for patient that lives alone.
--- NOTE | 2020-05-19 16:05 | NUR ---
Records faxed to [facility]. [facility] states reviewing his form of insurance coverage there would be an issue with he hasn't had 3 inpatient admit nights. They report a form needs filled out by a PCP Dr Paredes and he is out of office and they would likely not be able to do this as the patient will need to pay for the stay out of pocket. The staff called Dr Paredes's office and they are trying to reach him from being out.
--- NOTE | 2020-05-19 16:15 | NUR ---
Alternate locations discussed by Dr Avelar with 2 staff present. Pt was willing to try other locations and [facility] was contacted about emergency placement for P.T.
--- NOTE | 2020-05-19 16:20 | NUR ---
Records faxed to [facility] facility.
[2020-05-19] MEDS ORDERED: FLUT16SP22 NSEACH (16:52)
--- NOTE | 2020-05-19 17:20 | NUR ---
Called to numerous [facility] reaaching voicemails. The POA Ary Sales was attempted [phone] and reached voicemail. Message left to call us. The patient tried to call a "Venita" that is a helper to him and reached voicemail. Call to Anju Reynolds the neighbor to patient that works in office [employer]. She does not answer the phone. Receiving callback from dgt Hanna Rose and updated of the situation. She is in agreeance to the plan as pt has consented to it.
--- NOTE | 2020-05-19 17:35 | NUR ---
[facility] decline the transfer to [facility].
--- NOTE | 2020-05-19 17:48 | NUR ---
Call returned from [facility] declining transfer to [facility]. They have an ambulance heading to [place] and would be short a crew.
[2020-05-19 18:00] VITALS: BP 146/64
--- NOTE | 2020-05-19 18:00 | NUR ---
Patient departed to [facility] via POV with DON of the facility. Phone call was received by his DPOA Dgnela Sales whom is a DNP (Nurse Practioner). The DPOA describes the 6 children are at odds over pt's health and general condition of his living. The next DPOA Giovanny Serra is in agreeance with her she states. They have disagreement that patient needs moved to Assisted Living near family or in with a family member. Pt has had arrangements in the past and another family member steps in and reverses it. All children live from [place] to the east and closest in [place].
--- NOTE | 2020-05-19 20:08 | NUR ---
Completed a mandated reporting of patient living situation and need of assistance reported by patient to this RN (Mandated Commercial Director) to the [facility] Case #[id number]
== END 2020-05-19 18:00 ==
LOC: EDUNIT# 12:41 → ER FS 12:43
DX: E87.6 Hypokalemia (principal); R11.2 Nausea with vomiting, unspecified; R53.1 Weakness; L89.151 Pressure ulcer of sacral region, stage 1; G89.29 Other chronic pain; M54.9 Dorsalgia, unspecified; I10 Essential (primary) hypertension; Z88.8 Allergy status to other drugs, medicaments and biological substances; Z85.118 Personal history of other malignant neoplasm of bronchus and lung; Z87.820 Personal history of traumatic brain injury; Z87.891 Personal history of nicotine dependence; Z82.61 Family history of arthritis; Z80.0 Family history of malignant neoplasm of digestive organs; Z82.49 Family history of ischemic heart disease and other diseases of the circulatory system; Z79.891 Long term (current) use of opiate analgesic
CPT/HCPCS: 36415; 51701; 74177; 80053; 81000; 83605; 83690; 83880; 84484; 85025; 93041

== ENCOUNTER → 2020-08-02 | Outpatient (CLI) | payer MEDICARE, OTHER ==
[~2020-08-02] MED LIST changes: +FLUT16SP22 NSEACH; +POTA-51 PO
--- NOTE | 2020-08-02 11:56 | Diagnostic Imaging Report ---
INDICATION: Left elbow pain. COMPARISON: None. FINDINGS: 3 views of the left elbow show no fractures, dislocations, or other acute bony abnormalities identified. Joint spaces are well maintained throughout. The soft tissues appear unremarkable. No radiopaque foreign bodies are identified. IMPRESSION: No acute fractures or dislocations of the left elbow. Dictated by: Dictated on workstation # [id number]
--- NOTE | 2020-08-02 12:01 | Diagnostic Imaging Report ---
INDICATION: Left shoulder pain. COMPARISON: None FINDINGS: Multiple radiographic views of the left shoulder were obtained. There is no acute fracture or dislocation. Osseous structures are intact. There are advanced osteoarthritic changes of the glenohumeral joint space consisting of severe joint space narrowing with osteophyte formations. Joint spaces are otherwise maintained. No unexpected radiopaque foreign bodies are seen. Included portions of the left hemithorax are clear. IMPRESSION: 1. No acute fracture or dislocation of the left shoulder. 2. Moderate osteoarthritic changes. Dictated by: Dictated on workstation # [id number]
== END ==
LOC: RAD FS 11:12
PROVIDERS: ATTEND Family Medicine
DX: M19.012 Primary osteoarthritis, left shoulder (principal)
CPT/HCPCS: 73030; 73080

== ENCOUNTER → 2020-10-20 | Outpatient (CLI) | payer MEDICARE, OTHER ==
[~2020-10-20] MED LIST changes: +CATHETER FLUSH 10 ML SYR IV PRN; +HOLD METFORMIN - RECEIVED CONTRAST 20 ML VIAL IV SCH; +IOHEXOL 350 MG/ML 100 ML (OMNIPAQUE 350) VIAL IV ONE; +NS 100 ML (IVPB) BAG IV ONE
[2020-10-20 10:04] LABS: BASOPHILS % (AUTO) 1 % (0-10); EOSINOPHILS # (AUTO) 0.1 10^3/uL (0.0-0.3); EOSINOPHILS % (AUTO) 1 % (0-10); HEMATOCRIT 37 % (40-54); HEMOGLOBIN 12.4 G/DL (13.3-17.7); LYMPHOCYTES # (AUTO) 1.8 X 10^3 (1.0-4.0); LYMPHOCYTES % (AUTO) 14 % (12-44); MEAN CORPUSCULAR HEMOGLOBIN 28 PG (25-34); MEAN CORPUSCULAR HGB CONC 34 G/DL (32-36); MEAN CORPUSCULAR VOLUME 83 FL (80-99); MEAN PLATELET VOLUME 9.5 FL (7.4-10.4); MONOCYTES # (AUTO) 0.9 X 10^3 (0.0-1.0); MONOCYTES % (AUTO) 7 % (0-12); NEUTROPHILS # (AUTO) 9.1 X 10^3 (1.8-7.8); NEUTROPHILS % (AUTO) 72 % (42-75); PLATELET COUNT 270 10^3/uL (130-400); WHITE BLOOD COUNT 12.7 10^3/uL (4.3-11.0)
[2020-10-20 10:05] LABS: BASOPHILS # (AUTO) 0.1 10^3/uL (0.0-0.1)
[2020-10-20 10:27] LABS: CHLORIDE 93 MMOL/L (98-107); POTASSIUM 3.5 MMOL/L (3.6-5.0); SODIUM 133 MMOL/L (135-145)
[2020-10-20 10:28] LABS: ALANINE AMINOTRANSFERASE 41 U/L (0-55); ALBUMIN 3.5 GM/DL (3.2-4.5); ALKALINE PHOSPHATASE 101 U/L (40-136); BILIRUBIN,TOTAL 0.3 MG/DL (0.1-1.0); BUN/CREATININE RATIO 17; CALCIUM 9.2 MG/DL (8.5-10.1); CARBON DIOXIDE 30 MMOL/L (21-32); CREATININE SERUM 0.71 MG/DL (0.60-1.30); GFR ESTIMATED > 60; GLUCOSE 92 MG/DL (70-105); TOTAL PROTEIN 6.6 GM/DL (6.4-8.2)
[2020-10-20 10:30] LABS: ANISOCYTOSIS SLIGHT; BAND NEUTROPHILS 6 %; EOSINOPHILS % (MANUAL) 1 %; LYMPHOCYTES % (MANUAL) 15 %; METAMYELOCYTES % 4 %; MONOCYTES % (MANUAL) 8 %; NEUTROPHILS % (MANUAL) 66 %
--- NOTE | 2020-10-20 14:16 | Diagnostic Imaging Report ---
EXAMINATION: CT chest with intravenous contrast. TECHNIQUE: Multiple contiguous axial images were obtained through the chest after the uneventful administration of intravenous contrast. All CT scans use one or more of the following dose optimizing techniques: automated exposure control, MA and/or KvP adjustment based on patient size and exam type or iterative reconstruction. HISTORY: Lung cancer. COMPARISON: 03/15/2020 FINDINGS: There is no edema or pneumonia. No pleural effusion. No pneumothorax. Right lower lobe mass has increased in size measuring 3.7 x 2.7 cm, previously 2.5 x 1.9 cm. There is scarring in both lung apices. Previously seen tree-in-bud nodules have resolved. No new nodules are seen. Previously seen 9 mm left upper lobe nodule has resolved. There is no axillary or supraclavicular lymphadenopathy. There is no mediastinal lymphadenopathy. Heart size is normal. There are mild coronary artery calcifications. No pericardial effusion. Aorta is normal in caliber. Limited views of the upper abdomen show partially imaged left renal cyst. There are no suspicious osseous lesions. IMPRESSION: 1. Slight increase in size of right lower lobe mass measuring 3.7 x 2.7 cm, previously 2.5 x 1.9 cm. Dictated by: Dictated on workstation # [id number]
== END ==
LOC: RAD FS 09:34
PROVIDERS: ATTEND Internal Medicine Hematology & Oncology
DX: C34.2 Malignant neoplasm of middle lobe, bronchus or lung (principal)
CPT/HCPCS: 36415; 71260; 80053; 82378; 85007; 85027

== ENCOUNTER 2020-11-20 12:14 | Emergency (ER) | payer MEDICARE ==
[~2020-11-20] VITALS: Ht 180.3 cm; Wt 71.3 kg
[~2020-11-20 12:14] MED LIST changes: -CATHETER FLUSH 10 ML SYR IV PRN; -HOLD METFORMIN - RECEIVED CONTRAST 20 ML VIAL IV SCH; -IOHEXOL 350 MG/ML 100 ML (OMNIPAQUE 350) VIAL IV ONE; -NS 100 ML (IVPB) BAG IV ONE
--- NOTE | 2020-11-20 13:07 | Diagnostic Imaging Report ---
INDICATION: Sore throat and lung mass. TIME OF EXAM: 12:45 PM Comparison is made to prior chest from 09/24/2019. Heart size is stable. There are some patchy densities in the right upper lobe as well as right perihilar and right basilar region. Left lung is clear. No effusion or pneumothorax. IMPRESSION: Development of right-sided pulmonary opacities, perhaps owing to pneumonia. Dictated by: Dictated on workstation # [id number]
[2020-11-20 13:12] LABS: BASOPHILS % (AUTO) 0 % (0-10); EOSINOPHILS % (AUTO) 0 % (0-10); HEMATOCRIT 31 % (40-54); HEMOGLOBIN 10.6 G/DL (13.3-17.7); LYMPHOCYTES # (AUTO) 1.4 X 10^3 (1.0-4.0); LYMPHOCYTES % (AUTO) 6 % (12-44); MEAN CORPUSCULAR HEMOGLOBIN 29 PG (25-34); MEAN CORPUSCULAR HGB CONC 34 G/DL (32-36); MEAN CORPUSCULAR VOLUME 84 FL (80-99); MEAN PLATELET VOLUME 9.3 FL (7.4-10.4); MONOCYTES # (AUTO) 1.1 X 10^3 (0.0-1.0); MONOCYTES % (AUTO) 4 % (0-12); NEUTROPHILS # (AUTO) 22.1 X 10^3 (1.8-7.8); NEUTROPHILS % (AUTO) 87 % (42-75); PLATELET COUNT 258 10^3/uL (130-400); WHITE BLOOD COUNT 25.4 10^3/uL (4.3-11.0)
--- NOTE | 2020-11-20 13:21 | ED Respiratory ---
General Chief Complaint: Respiratory Problems Stated Complaint: LOW O2; SORE THROAT Source: patient Exam Limitations: no limitations History of Present Illness Date Seen by Provider: Nov 20, 2020 Time Seen by Provider: 12:35 Initial Comments Here with report of low to sore throat. Has had a sore throat for quite some time. Denies fever. Did have surgery in the last several days for left arm that he had a pin removed. Apparently had Covid test before that and that was negative. He is at the [place] rehab facility. He is out for the weekend with the daughter. She noted that his oxygen saturation was low and took him to the urgent care. They sent him over here due to saturations in the upper 80s on his O2. Daughter states that he is not normally on it but does have it in case he needs it at 1 or 2 L. She had to turn him up to 3 or 4 to get appropriate oxygen. Apparently eating and drinking okay. Does have lung cancer. This apparently has worsened slightly recently. Timing/Duration: this morning Severity: moderate Prior Episodes/Possible Cause: occasional episodes Associated Symptoms: No cough, No fever/chills, No nasal congestion; shortness of breath, sore throat; No wheezing Allergies and Home Medications Allergies Coded Allergies: baclofen (Verified Allergy, Unknown, 11/24/18) metoclopramide (Verified Allergy, Unknown, 11/24/18) Home Medications Afatinib Dimaleate 30 Mg Tablet, 30 MG PO DAILY, (Reported) TAKES 1ST THING IN THE MORNING Amlodipine Besylate 10 Mg Tablet, 10 MG PO DAILY, (Reported) Ascorbic Acid 500 Mg Tablet, 500 MG PO DAILY, (Reported) Carboxymethylcellulose Sodium 15 Ml Drops, 1 DROP OD Q2H, (Reported) Fentanyl 1 Each Patch.td72, 100 MCG TD Q72H, (Reported) LAST TIME PATCH WAS APPLIED WAS 02-23-2019 BEFORE HOSPITALIZATION Fluticasone Propionate 16 Gm [place].susp, 1 SPRAY NSEACH DAILY, (Reported) Gabapentin 300 Mg Capsule, 600 MG PO TID, (Reported) TAKES 2 (300MG) CAPSULES Loratadine 10 Mg Tablet, 10 MG PO DAILY, (Reported) Mineral Oil/Petrolatum,White 3.5 Gm Oint...g., OD HS, (Reported) Multivitamin 1 Each Tablet, 1 TAB PO DAILY, (Reported) Omeprazole 20 Mg Capsule.dr, 20 MG PO DAILY, (Reported) Ondansetron 4 Mg Tab.rapdis, 4 MG PO Q8H PRN for NAUSEA/VOMITING-1ST LINE, (Reported) Oxycodone Hcl 5 Mg Tablet, 5 MG PO Q6H PRN for PAIN-SEVERE, (Reported) Paroxetine HCl 20 Mg Tablet, 20 MG PO DAILY, (Reported) Potassium Chloride 10 Meq Tab.er.prt, 10 MEQ PO BID, (Reported) TAKES 2 (10MEQ) TABLETS Tamsulosin HCl 0.4 Mg Cap, 0.4 MG PO DAILY, (Reported) Umeclidinium Brm/Vilanterol Tr 1 Each Blst.w.dev, 1 PUFF IH DAILY, (Reported) Patient Home Medication List Home Medication List Reviewed: Yes Review of Systems Review of Systems Constitutional: see HPI; No fever; malaise, weakness EENTM: throat pain; No nose congestion, No nose pain Respiratory: No cough; short of breath Cardiovascular: No chest pain, No edema Gastrointestinal: No abdominal pain, No nausea, No vomiting Genitourinary: No dysuria, No pain Musculoskeletal: joint pain, muscle pain Skin: No change in color, No lesions Psychiatric/Neurological: Denies Headache; Weakness All Other Systems Reviewed Negative Unless Noted: Yes Past Tefkqsb-Zrduqv-Abpsbr Hx Patient Social History Tobacco Use?: No Substance use?: No Alcohol Use?: No Immunizations Up To Date Tetanus Booster (TDap): Unknown PED Vaccines UTD: Yes Seasonal Allergies Seasonal Allergies: Yes Past Medical History Surgeries: Yes (Past hx of Suprapubic catheter, L TKR, Neuro stimulator placed and removed) Eye Surgery, Gallbladder, Joint Replacement, Orthopedic Respiratory: Yes (has home 02, has only used once in 2 years) Pneumonia, COPD Currently Using CPAP: No Currently Using BIPAP: No Cardiac: Yes Hypertension Neurological: Yes Concussion, Neuropathy, Traumatic Brain Injury Genitourinary: Yes (urinary incontinence, past hx of Suprapubic catheter, prostate problems) Prostate Problems, UTI-Chronic Gastrointestinal: Yes (on Iron replacement, Hx of abnormal LFT's) Abdominal Hernia, Gastrointestinal Bleed Musculoskeletal: Yes (chronic pain lower ext from trauma, run over by a tractor) Arthritis, Back Injury, Chronic Back Pain Endocrine: No HEENT: Yes (dry eyes, doesn't make tears) Loss of Vision: Right Hearing Impairment: Hard of Hearing, Hearing Aide Right, 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 Did You Recieve Any Treatments: Yes What Type of Treatment Did You: Chemotherapy Psychosocial: No Integumentary: Yes (thin/frail skin, scattered ecchymosis) Recent Skin Changes Blood Disorders: No Adverse Reaction/Blood Tranf: No Family Medical History Reviewed Nursing Family Hx Arthritis Colon cancer Coronary thrombosis Hypertension Myocardial infarction Respiratory disorder Heart Disease, Cancer, Hypertension Physical Exam Vital Signs - First Documented 11/20/20 12:25 Temp 36.2 Pulse 65 Resp 24 B/P (MAP) 111/52 (71) Pulse Ox 92 O2 Delivery Nasal Cannula O2 Flow Rate 4.00 Capillary Refill : Height: 5'11.00" Weight: 165lbs. 8.0oz. 74.859994hz; 20.00 BMI Method:Stated General Appearance: WD/WN, no apparent distress HEENT: PERRL/EOMI, pharynx normal Neck: full range of motion, supple Respiratory: lungs clear, normal breath sounds Cardiovascular: regular rate, rhythm, no murmur Gastrointestinal: non tender, soft Extremities: no calf tenderness Neurologic/Psychiatric: alert, oriented x 3 Skin: normal color, warm/dry Focused Exam Lactate Level 11/20/20 12:45: Lactic Acid Level 3.09*H 11/20/20 14:32: Lactic Acid Level 1.74 Lactic Acid Level Laboratory Tests Test 11/20/20 12:45 11/20/20 14:32 Lactic Acid Level 3.09 MMOL/L (0.50-2.00) *H 1.74 MMOL/L (0.50-2.00) Progress/Results/Core Measures Suspected Sepsis SIRS Temperature: Pulse: Respiratory Rate: Laboratory Tests 11/20/20 12:45: White Blood Count 25.4H Blood Pressure / Mean: 11/20/20 12:45: Lactic Acid Level 3.09*H 11/20/20 14:32: Lactic Acid Level 1.74 Laboratory Tests 11/20/20 12:45: Creatinine 1.04, INR Comment 1.0, Platelet Count 258, Total Bilirubin 0.4 Results/Orders Lab Results Laboratory Tests Test 11/20/20 12:45 11/20/20 12:51 11/20/20 14:32 Range/Units White Blood Count 25.4 H 4.3-11.0 10^3/uL Red Blood Count 3.70 L 4.35-5.85 10^6/uL Hemoglobin 10.6 L 13.3-17.7 G/DL Hematocrit 31 L 40-54 % Mean Corpuscular Volume 84 80-99 FL Mean Corpuscular Hemoglobin 29 25-34 PG Mean Corpuscular Hemoglobin Concent 34 32-36 G/DL Red Cell Distribution Width 14.9 H 10.0-14.5 % Platelet Count 258 130-400 10^3/uL Mean Platelet Volume 9.3 7.4-10.4 FL Immature Granulocyte % (Auto) 3 % Neutrophils (%) (Auto) 87 H 42-75 % Lymphocytes (%) (Auto) 6 L 12-44 % Monocytes (%) (Auto) 4 0-12 % Eosinophils (%) (Auto) 0 0-10 % Basophils (%) (Auto) 0 0-10 % Neutrophils # (Auto) 22.1 H 1.8-7.8 X 10^3 Lymphocytes # (Auto) 1.4 1.0-4.0 X 10^3 Monocytes # (Auto) 1.1 H 0.0-1.0 X 10^3 Eosinophils # (Auto) 0.0 0.0-0.3 10^3/uL Basophils # (Auto) 0.0 0.0-0.1 10^3/uL Immature Granulocyte # (Auto) 0.7 H 0.0-0.1 10^3/uL Neutrophils % (Manual) 93 % Lymphocytes % (Manual) 6 % Monocytes % (Manual) 1 % Toxic Granulation 4+ Polychromasia SLIGHT Basophilic Stippling SLIGHT Elliptocytes SLIGHT Blood Morphology Comment LRG PLTS Prothrombin Time 13.0 12.2-14.7 SEC INR Comment 1.0 0.8-1.4 Activated Partial Thromboplast Time 23 L 24-35 SEC Sodium Level 130 L 135-145 MMOL/L Potassium Level 3.0 L 3.6-5.0 MMOL/L Chloride Level 93 L 98-107 MMOL/L Carbon Dioxide Level 27 21-32 MMOL/L Anion Gap 10 5-14 MMOL/L Blood Urea Nitrogen 22 H 7-18 MG/DL Creatinine 1.04 0.60-1.30 MG/DL Estimat Glomerular Filtration Rate 69 BUN/Creatinine Ratio 21 Glucose Level 95 70-105 MG/DL Lactic Acid Level 3.09 *H 1.74 0.50-2.00 MMOL/L Calcium Level 8.7 8.5-10.1 MG/DL Corrected Calcium 9.3 8.5-10.1 MG/DL Total Bilirubin 0.4 0.1-1.0 MG/DL Aspartate Amino Transf (AST/SGOT) 26 5-34 U/L Alanine Aminotransferase (ALT/SGPT) 15 0-55 U/L Alkaline Phosphatase 61 40-136 U/L C-Reactive Protein 2.26 H <0.50 MG/DL Total Protein 5.6 L 6.4-8.2 GM/DL Albumin 3.3 3.2-4.5 GM/DL SARS-CoV-2 RNA (RT-PCR) Not Detected Not Detecte My Orders Orders - LEI WALLS MD Cbc With Automated Diff (11/20/20 12:41) Comprehensive Metabolic Panel (11/20/20 12:41) Blood Culture (11/20/20 12:41) Sputum Culture (11/20/20 12:41) Urinalysis (11/20/20 12:41) Urine Culture (11/20/20 12:41) Protime With Inr (11/20/20 12:41) Partial Thromboplastin Time (11/20/20 12:41) Chest 1 View Ap/Pa Only (11/20/20 12:41) Ed Iv/Invasive Line Start (11/20/20 12:41) Vital Signs Adult Sepsis Patie Q15M (11/20/20 12:41) O2 (11/20/20 12:41) Remove Rings In Anticipation O (11/20/20 12:41) Lactic Acid Analyzer (11/20/20 12:41) Covid 19 Inhouse Test (11/20/20 12:41) Crp Fs (11/20/20 12:41) Manual Differential (11/20/20 12:45) Cefepime Injection (Maxipime Injection) (11/20/20 13:45) Cefepime Injection (Maxipime Injection) (11/20/20 16:16) Water (Sterile) For Injection (Sterile W (11/20/20 16:16) Medications Given in ED Current Medications Medications Dose Ordered Sig/Nunu Route Start Time Stop Time Status Last Admin Dose Admin Cefepime HCl 1000 mg/Sterile Water 10 ml @ 200 mls/hr ONCE ONCE IV 11/20/20 13:45 11/20/20 13:47 DC 11/20/20 16:16 200 MLS/HR Vital Signs/I&O 11/20/20 12:25 Temp 36.2 Pulse 65 Resp 24 B/P (MAP) 111/52 (71) Pulse Ox 92 O2 Delivery Nasal Cannula O2 Flow Rate 4.00 Capillary Refill : Progress Note : Progress Note Seen and evaluated. IV, labs, chest x-ray, sepsis protocol initiated. Monitor patient. 1349: Chest x-ray does show worsening infiltrates on the right concerning for pneumonia. White count is quite elevated at 25,000 and CRP is elevated. He is getting fluid now. Cefepime 1 g IV ordered. Monitor patient. Patient has requested transfer to [facility] as his rehab center is in [place]. We will make contact with them and see if they can accept for transfer. And asking his resuscitation status, patient reports he would like at least one resuscitation attempt. We will make him full code. Patient has apparently been on antibiotics for pneumonia at the rehab center although the daughter does not know what that is. Irregardless, cefepime is a good choice. Patient will need admission. 1630: I spoke with Dr. Muniz at [facility] and he accepts patient for admission, inpatient status and agrees with initiation of antibiotics. This was discussed with patient and family who agree to plan. Patient will go by EMS. Stable for transfer via S. Diagnostic Imaging Diagonstic Imaging: Xray Plain Films/CT/US/NM/MRI: chest Comments [facility] [place], [place] NAME: NOY [facility] [employer] REC#: [id number] PT STATUS: REG ER : 1940 PHYSICIAN: LEI WALLS MD ADMIT DATE: 11/20/20/ER FS Draft Date of Exam:11/20/20 CHEST 1 VIEW AP/PA ONLY INDICATION: Sore throat and lung mass. TIME OF EXAM: 12:45 PM Comparison is made to prior chest from 09/24/2019. Heart size is stable. There are some patchy densities in the right upper lobe as well as right perihilar and right basilar region. Left lung is clear. No effusion or pneumothorax. IMPRESSION: Development of right-sided pulmonary opacities, perhaps owing to pneumonia. Dictated on workstation # [id number] Dict: 11/20/20 1301 Trans: 11/20/20 1307 CV [id number] Interpreted by: DAVONTE GARRETT MD Electronically signed by: Departure Impression Primary Impression: Pneumonia involving right lung Qualified Codes: J18.9 - Pneumonia, unspecified organism Additional Impression: Cancer of right lung Qualified Codes: C34.31 - Malignant neoplasm of lower lobe, right bronchus or lung Disposition: XF SHT-TRM HOSP Condition: Stable Transfer Transfer Reason: Patient preference Time Spoke to Accepting Phy: 16:30 Transfer Facility: Dr. Muniz at [facility] in [place], [place] accepting Method of Transfer: EMS Departure-Patient Inst. Referrals: SADIA SEGUNDO MD (PCP/Family) Primary Care Physician LEI WALLS MD Nov 20, 2020 13:20
[2020-11-20 13:28] LABS: ALBUMIN 3.3 GM/DL (3.2-4.5); BILIRUBIN,TOTAL 0.4 MG/DL (0.1-1.0); CALCIUM 8.7 MG/DL (8.5-10.1); CREATININE SERUM 1.04 MG/DL (0.60-1.30); TOTAL PROTEIN 5.6 GM/DL (6.4-8.2)
[2020-11-20] MEDS ORDERED: CEFEPIME INJECTION 1,000 MG in WATER (STERILE) FOR INJECTION 10 ML IV ONE (13:45)
[2020-11-20 13:47] LABS: LYMPHOCYTES % (MANUAL) 6 %; NEUTROPHILS % (MANUAL) 93 %
[2020-11-20 13:48] LABS: ELLIPT/OVALOCYTES SLIGHT; MONOCYTES % (MANUAL) 1 %; POLYCHROMASIA SLIGHT; RBC MORPH LRG PLTS; TOXIC GRANULATION/VACUOLAZATIO 4+
[2020-11-20] MEDS ORDERED: CEFEPIME 1 GM/10 ML (MAXIPIME) VIAL ONE (16:16)
[2020-11-20] MEDS ORDERED: WATER (STERILE) FOR INJECTION 10 ML ONE (16:16)
[2020-11-20 17:30] VITALS: BP 132/68
--- OUTSIDE RECORDS SUMMARY | 2020-11-24 12:14 | XMS REPORT | Clinical Summary ---
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 Metoclopramide Hcl Confusion 08/22/2017 Medications End Date Status Medication Sig Dispensed Refills Start Date Active amLODIPine (NORVASC) 10 Take 10 mg by 0 MG tablet mouth every morning. Active fentaNYL (DURAGESIC) 100 Place 1 patch 0 mcg/hr patch on the skin every 72 hours. Active gabapentin (NEURONTIN) Take 800 mg 0 400 MG capsule by mouth 3 (three) times a day. Active loratadine (CLARITIN) 10 Take 10 mg by 0 mg tablet mouth every morning. Active omeprazole (PRILOSEC) 20 Take 20 mg by 0 MG capsule mouth every morning. Active oxyCODONE (ROXICODONE) 5 Take 5 mg by 0 MG immediate release mouth every 6 tablet (six) hours as needed for pain. Active PARoxetine (PAXIL) 20 MG Take 20 mg by 0 tablet mouth every morning. Active potassium chloride Take 10 mEq 0 (KLOR-CON) 10 MEQ CR by mouth tablet every morning. Active senna-docusate Take 1 tablet 0 (PERICOLACE) 8.6-50 mg by mouth as needed. Active tamsulosin (FLOMAX) 0.4 Take 0.4 mg 0 mg Cp24 by mouth daily. Currently not taking. Active umeclidinium-vilanterol Inhale 1 puff 0 (ANORO ELLIPTA) 62.5-25 every mcg/actuation INHALER morning. Active albuterol (VENTOLIN HFA) Inhale 2 0 90 mcg/actuation HFA puffs every 6 inhaler (six) hours as needed for wheezing. Active ipratropium (ATROVENT Inhale 2 0 HFA) 17 mcg/actuation puffs 2 (two) inhaler times a day as needed for wheezing. Currently not taking. Take 2.5mL (0.5mg) by inhalation every 12 hours as needed for shortness of breath Active ibuprofen (ADVIL,MOTRIN) Take 400 mg 0 200 MG tablet by mouth as needed for pain. Active ascorbic acid (VITAMIN C) Take 500 mg 0 500 mg tablet by mouth daily. Active ferrous sulfate (IRON) Take 325 mg 0 325 (65 FE) MG tablet by mouth daily. Active ofloxacin (OCUFLOX) 0.3 % Instill 1 5 mL 0 ophthalmic solution drop into the 8 right eye 4 (four) times a day. Active homatropine (ISOPTO Instill 1 15 mL 0 HOMATROPINE) 5 % drop into the 8 ophthalmic solution right eye 2 (two) times a day. Active apraclonidine (IOPIDINE) Instill 1 5 mL 0 0 0.5 % ophthalmic solution drop into the 8 right eye 4 (four) times a day. Active prednisoLONE acetate Instill 1 5 mL 0 11/28 (PRED FORTE) 1 % drop into the 8 ophthalmic suspension right eye 4 (four) times a day. Active Problems Problem Noted Date Abdominal pain 08/25/2017 Last Assessment & Plan: Formatting of this note might be differ ent from the original. Ct with fluid collection Discussed with surgery negative HIDA scan benign abdominal exam, patient is tolerating a diet, Surgery highly doubts there are any com plications from the patient's previous surgery. Surgery signed off. Encephalopathy 08/22/2017 Last Assessment & Plan: Formatting of this note might be differ ent from the original. Resolved Metabolic from baclofen (12 tabs gone i n last 24 hours) hold baclofen and any sedating medicati ons Monitor for withdrawal Pain meds prn and cont fentanyl patch w ith caution -IVFs can be stopped -Fall precautions/bed alarm -poison control had been following -PT/OT reassess in AM to see how he has progressed. Initial plan was to D/C to SNF. CM/SW involved in D/C planning. Likely D/C tomorrow Hypokalemia 08/22/2017 Last Assessment & Plan: Formatting of this note might be differ ent from the original. Replace per protocol Diarrhea 08/22/2017 Last Assessment & Plan: Formatting of this note might be differ ent from the original. Gi panel neg Chronic back pain 08/22/2017 Last Assessment & Plan: Formatting of this note might be differ ent from the original. Follows with pain management on fentany l patch 100mcg q72h and oxycodone PRN -increase fentanyl patch to 75(100 is h ome dose) resumed oxycodone prn Added ibuprofen Hold baclofen BPH (benign prostatic hyperplasia) 08/22/2017 HTN (hypertension) 08/22/2017 Last Assessment & Plan: Formatting of this note might be differ ent from the original. 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, right 11/26/2017 11/28/2017 Chronic pain 08/22/2017 08/22/2017 Family History Medical History Relation Name Comments Lung cancer Father Lung cancer Mother Relation Name Status Comments Father Mother Social History Date Tobacco Use Types Packs/Day Years Used Quit: 1968 Former Smoker Cigarettes 1.5 11 Smokeless Tobacco: Never Used Comments: quit 50 years ago Comments Alcohol Use Standard Drinks/Week 2 per week Yes 0 (1 standard drink = 0.6 o z pure alcohol) Sex Assigned at Date Recorded Not on file Last Filed Vital Signs Reading Time Taken Comments Vital Sign 113/56 11/28/2017 10:59 AM CDT Blood Pressure 61 11/28/2017 10:59 AM CDT Pulse 36.4 C (97.6 F) 11/28/2017 10:59 AM CDT Temperature 16 11/28/2017 10:59 AM CDT Respiratory Rate 95% 11/28/2017 10:59 AM CDT Oxygen Saturation - - Inhaled Oxygen Concentration 77.6 kg (171 lb) 11/27/2017 8:04 PM CDT Weight 180.3 cm (5' 11") 11/27/2017 8:04 PM CDT Height 23.85 11/27/2017 8:04 PM CDT Body Mass Index Plan of Treatment Health Maintenance Due Date Last Done Comments Advance Directive has 1940 been filed Medicare Annual Wellness 1940 Td/Tdap# 1940 COVID-19 Vaccine (1) 1950 Zoster Vaccine# (1 of 2) 1988 Advance Directive 12/15/2003 Conversation Depression Screening 12/15/2003 PHQ-9 # Patient Needs Advance 12/15/2003 Directive Pneumococcal Vaccine: 65+ 12/15/2003 Years (1 of 1 - PPSV23) Fall Risk Assessment # 11/28/2018 11/28/2017 Influenza Vaccine (#1) 2021 Implants Device Identifier Shelf Expiration Date Model / Serial / L ot Implanted Type Area Manufactur er 11/20/2021 92-09 / / [id number] Implant Eye Scleral Buckle Band Non-Tissue Right: Eye RUSSIAN Silicone Style 41 - Implant OPHTHALMIC [id number] Implanted: Qty: 1 on 11/27/2017 by Kenrick Chamberlain MD at [facility] Hardware Low Back Spinal Cord Stimulator Description:Not working. 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
== END 2020-11-20 17:30 | disposition short-term general hospital (02) ==
LOC: EDUNIT# 12:14 → ER FS 12:16
DX: C34.91 Malignant neoplasm of unspecified part of right bronchus or lung (principal); J18.9 Pneumonia, unspecified organism; J44.9 Chronic obstructive pulmonary disease, unspecified; I10 Essential (primary) hypertension; G89.29 Other chronic pain; M54.9 Dorsalgia, unspecified; Z20.822 Contact with and (suspected) exposure to COVID-19; Z87.820 Personal history of traumatic brain injury; Z79.891 Long term (current) use of opiate analgesic; Z79.899 Other long term (current) drug therapy
CPT/HCPCS: 36415; 71045; 80053; 83605; 85007; 85027; 85610; 85730; 86141; 87040; 87636